=== PATIENT | female | born 1995 | race Caucasian/White ===

== ENCOUNTER 2022-10-15 15:50 | Emergency (ER) | payer OTHER, SELFPAY ==
[2022-10-15 15:54] VITALS: BP 144/94; PULSE 89; RESP 18; TEMP 37.2; O2SAT 99; BMI 35.5
--- NOTE | 2022-10-15 16:05 | US_ITS ---
The [address] [address] Patient Name: ELIZABETH MOLINA MRN: [id number] date: 1995 Sex: F Assigned Patient Location: ER Current Patient Location: ER Accession/Order Number: [id number] Exam Date: 10/15/2022 16:06 Report Date: 10/15/2022 17:30 At the request of: JESSEE BORGES Procedure: US OB transvaginal PROCEDURE: US OB transvaginal, 10/15/2022 4:06 PM EDT CLINICAL INDICATIONS: Vaginal bleeding in for 5 days, encounter for first trimester. 2 para 1 LMP 09/06/2022 Expected gestational age by LMP: 5 weeks 4 days Expected ABDIRIZAK by LMP: 06/13/2023 COMPARISON: None TECHNIQUE: Transvaginal first trimester obstetric sonogram, grayscale and color assessment. FINDINGS: Uterus: There is no sign of intrauterine . Endometrial echo complex is poorly demonstrated estimated at 0.9 cm. A focal uterine abnormality is not suspected. Significant free fluid is not evident. Maternal right ovary: 3.3 x 1.8 x 1.8 cm. Volume 5 mL. A few subcentimeter follicle seen. Normal sonographic morphology. Maternal left ovary: 2.5 x 1.7 x 1.7 cm. Volume 4 mL. Subcentimeter follicle seen. Normal sonographic morphology. US/US OB transvaginal IMPRESSION: 1. uncertain location. There is no sign of intrauterine or extra uterine . Differential considerations include too early to confirm by sonography, complete spontaneous , ectopic . Correlation with serial quantitative beta-hCG and follow-up sonography needed. 2. Normal uterine and maternal ovarian sonographic morphology 3. No significant pelvic mass or free fluid Electronically authenticated by: KYUNG MARTIN Date: 10/15/2022 17:30
--- NOTE | 2022-10-15 16:08 | ED.GENADUL1 ---
Documented by User: ABEL Jauregui 10/15/22 17:45 HPI - General Adult General Chief complaint: OB/Uterine Contractions Stated complaint: BLEEDING, ISSUES, UNDER 20-WEEKS Time Seen by Provider: 10/15/22 15:52 Source: patient Mode of arrival: walk-in History of Present Illness HPI narrative: patient is a 27-year-old female estimated 5weeks 4 days gestation with last menstrual period began 09/06/22. Estimated date of confinement would be 06/13/2023.patient states she had intercourse last night, started noticed some spotting, today she had increased bleeding and pelvic cramping. Patient states she has been using a thin pad/pantiliners and bled through her underwear. She denies having these a thick pad. Patient believes her blood type is O positive. She denies any dysuria or fever or vaginal discharge. Patient appears in no distress, but visibly anxious. Related Data Home Medications Medication Instructions Recorded Confirmed bupropion HCl 100 mg tablet 100 mg PO BID 10/15/22 10/15/22 Allergies Allergy/AdvReac Type Severity Reaction Status Date / Time No Known Drug Allergies Allergy Verified 10/15/22 15:54 Review of Systems ROS Constitutional Denies: fever or chills Ears, nose, mouth, and throat Denies: throat pain or neck pain Cardiovascular Denies: chest pain, palpitations or swelling of feet/ankles Respiratory Denies: shortness of breath or cough Gastrointestinal Reports: abdominal pain (pelvic cramping) Genitourinary Reports: vaginal bleeding; Denies: painful urination Musculoskeletal Denies: back pain, neck pain, extremity pain or extremity swelling Integumentary/Breast Denies: rash Psychiatric Denies: anxiety or mood swings Endocrine Denies: excessive urination Exam Narrative Exam Narrative: Nurses notes and vital signs reviewed and patient is not hypoxic. General: The patient appears well and in no apparent distress. mildly anxious, Patient is resting comfortably on cart. Skin: Warm, dry, no pallor noted. Head: Normocephalic, atraumatic Neck: Supple, trachea mid-line, no tenderness, no lymphadenopathy Eye: Pupils are equal, round and reactive to light, EOMI Ears, Nose, Mouth, and Throat: external exam unremarkable Cardiovascular: Regular Rate and Rhythm Respiratory: Patient is in no distress, no accessory muscle use, lungs are clear to auscultation, no wheezing, rales or rhonchi. Chest Wall: no tenderness Back: non-tender, no CVA tenderness Musculoskeletal: normal ROM, no tenderness, no swelling GI: Normal bowel sounds, no tenderness to palpation, no masses appreciated. No rebound, guarding, or rigidity noted. Neurological: A&O x4 Psychiatric: Cooperative, mildly anxious Constitutional Vital Signs, click to edit/add: Last Vital Signs Temp 99 F 10/15/22 15:54 Pulse 89 10/15/22 15:54 Resp 18 10/15/22 15:54 BP 144/94 H 10/15/22 15:54 Pulse Ox 99 10/15/22 15:54 O2 Del Method Room Air 10/15/22 15:54 Course Vital Signs Vital signs: Vital Signs Temperature 99 F 10/15/22 15:54 Pulse Rate 89 10/15/22 15:54 Respiratory Rate 18 10/15/22 15:54 Blood Pressure 144/94 H 10/15/22 15:54 Pulse Oximetry 99 10/15/22 15:54 Oxygen Delivery Method Room Air 10/15/22 15:54 Temperature 99 F 10/15/22 15:54 Pulse Rate 89 10/15/22 15:54 Respiratory Rate 18 10/15/22 15:54 Blood Pressure 144/94 H 10/15/22 15:54 Pulse Oximetry 99 10/15/22 15:54 Oxygen Delivery Method Room Air 10/15/22 15:54 Medical Decision Making MDM Narrative Medical decision making narrative: 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 we discussed her vaginal bleeding postcoital, we discussed vaginal hemorrhaging and the need to return to the Emergency Room if she gets greater than three pads an hour for three hours straight. We discussed baseline labs drawn today, ultrasound will be performed to confirm intrauterine . Reviewed ultrasound report, discussed laboratory findings, her quantitative hCG is very low. I discussed her case with Dr. Christian, she is agreeable that we repeat the quantitative hCG in two days and patient is to follow-up with Dr. Burger. Bedside questions answered for the patient, prescription given for outpatient lab draw to be done in two days.patient is O positive The patient is to followup with primary care physician in next 2-3 days or to return to the emergency department should any of the signs or symptoms worsen or new symptoms develop. Patient had questions answered. The patient agrees with the following Diagnosis and Treatment plan and the patient will be discharged home. Lab Data Labs: Lab Results 10/15/22 10/15/22 Range/Units 16:15 16:20 WBC 8.9 (4.0-11.0) 10^3/uL RBC 4.74 (4.20-5.40) 10^6/uL Hgb 13.9 (12.0-16.0) g/dL Hct 40.2 (36.0-48.0) % MCV 84.8 (81.0-99.0) fL MCH 29.3 (26.7-34.0) pg MCHC 34.6 (29.9-35.2) g/dL RDW 12.6 (11.0-15.0) % Plt Count 268 (150-450) 10^3/uL MPV 10.0 (9.5-13.5) fL Neut % (Auto) 52.2 (43.0-75.0) % Lymph % (Auto) 36.9 (20.5-60.0) % [place] % (Auto) 8.9 (1.7-12.0) % Eos % (Auto) 1.5 (0.9-7.0) % Baso % (Auto) 0.2 (0.2-2.0) % Neut # (Auto) 4.7 (1.4-6.5) 10^3/uL Lymph # (Auto) 3.3 (1.2-3.8) 10^3/uL [place] # (Auto) 0.8 (0.3-0.8) 10^3/uL Eos # (Auto) 0.1 (0.0-0.7) 10^3/uL Baso # (Auto) 0.0 (0.0-0.1) 10^3/uL Abs Immat Gran (auto) 0.03 (0.00-0.03) 10^3/uL Imm/Tot Granulo (auto) 0.3 (0.0-0.5) % HCG, Quant 72 mIU/mL Urine Color Lt. yellow (YELLOW) Urine Clarity Clear (CLEAR) Urine pH 6.5 (5.0-9.0) Ur Specific [place] 1.010 (1.005-1.025) Urine Protein Negative (NEG/TRACE) mg/dL Urine Glucose (UA) Negative (NEGATIVE) mg/dL Urine Ketones Negative (NEGATIVE) mg/dL Urine Occult Blood Large A (NEGATIVE) Urine Nitrite Negative (NEGATIVE) Urine Bilirubin Negative (NEGATIVE) Urine Urobilinogen 0.2 (0.2-1.0) EU/dL Ur Leukocyte Esterase Negative (NEGATIVE) Urine RBC 2-5 A (0-2) #/HPF Urine WBC None seen (NONE SEEN) #/HPF Ur Squamous Epith Cells Rare (NONE/RARE) #/LPF Urine Crystals None seen (None Seen) #/HPF Urine Bacteria Trace A (NONE SEEN) #/HPF Urine Casts None seen (NONE SEEN) #/LPF Urine Mucus None seen (NONE SEEN) Ur Culture Indicated? No Blood Type O Positive Imaging Data US - abdomen: Radiologist's impression: Procedure: US OB transvaginal PROCEDURE: US OB transvaginal, 10/15/2022 4:06 PM EDT CLINICAL INDICATIONS: Vaginal bleeding in for 5 days, encounter for first trimester. 2 para 1 LMP 09/06/2022 Expected gestational age by LMP: 5 weeks 4 days Expected ABDIRIZAK by LMP: 06/13/2023 COMPARISON: None TECHNIQUE: Transvaginal first trimester obstetric sonogram, grayscale and color assessment. FINDINGS: Uterus: There is no sign of intrauterine . Endometrial echo complex is poorly demonstrated estimated at 0.9 cm. A focal uterine abnormality is not suspected. Significant free fluid is not evident. Maternal right ovary: 3.3 x 1.8 x 1.8 cm. Volume 5 mL. A few subcentimeter follicle seen. Normal sonographic morphology. Maternal left ovary: 2.5 x 1.7 x 1.7 cm. Volume 4 mL. Subcentimeter follicle seen. Normal sonographic morphology. IMPRESSION: 1. uncertain location. There is no sign of intrauterine or extra uterine . Differential considerations include too early to confirm by sonography, complete spontaneous , ectopic . Correlation with serial quantitative beta-hCG and follow-up sonography needed. 2. Normal uterine and maternal ovarian sonographic morphology 3. No significant pelvic mass or free fluid Electronically authenticated by: KYUNG MARTIN Date: 10/15/2022 17:30 Discharge Plan Discharge Chief Complaint: OB/Uterine Contractions Clinical Impression: Threatened miscarriage Patient Disposition: Home, Self-Care Time of Disposition Decision: 17:43 Condition: Good Prescriptions / Home Meds: No Action bupropion HCl 100 mg tablet 100 mg PO BID Referrals: Rogerio Burger DO [Physician] - As soon as possible DANIEL LAMB [Primary Care Provider] - 1 week Discharge Date/Time: 10/15/22 17:56 Documented by User: Gurdeep Delcid MD 10/15/22 19:11 HPI - General Adult General Chief complaint: OB/Uterine Contractions Stated complaint: BLEEDING, ISSUES, UNDER 20-WEEKS Time Seen by Provider: 10/15/22 15:52 Related Data Home Medications Medication Instructions Recorded Confirmed bupropion HCl 100 mg tablet 100 mg PO BID 10/15/22 10/15/22 Allergies Allergy/AdvReac Type Severity Reaction Status Date / Time No Known Drug Allergies Allergy Verified 10/15/22 15:54 Exam Constitutional Vital Signs, click to edit/add: Last Vital Signs Temp 99 F 10/15/22 15:54 Pulse 89 10/15/22 15:54 Resp 18 10/15/22 15:54 BP 144/94 H 10/15/22 15:54 Pulse Ox 99 10/15/22 15:54 O2 Del Method Room Air 10/15/22 15:54 Course Vital Signs Vital signs: Vital Signs Temperature 99 F 10/15/22 15:54 Pulse Rate 89 10/15/22 15:54 Respiratory Rate 18 10/15/22 15:54 Blood Pressure 144/94 H 10/15/22 15:54 Pulse Oximetry 99 10/15/22 15:54 Oxygen Delivery Method Room Air 10/15/22 15:54 Temperature 99 F 10/15/22 15:54 Pulse Rate 89 10/15/22 15:54 Respiratory Rate 18 10/15/22 15:54 Blood Pressure 144/94 H 10/15/22 15:54 Pulse Oximetry 99 10/15/22 15:54 Oxygen Delivery Method Room Air 10/15/22 15:54 Medical Decision Making MDM Narrative Medical decision making narrative: 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 we discussed her vaginal bleeding postcoital, we discussed vaginal hemorrhaging and the need to return to the Emergency Room if she gets greater than three pads an hour for three hours straight. We discussed baseline labs drawn today, ultrasound will be performed to confirm intrauterine . Reviewed ultrasound report, discussed laboratory findings, her quantitative hCG is very low. I discussed her case with Dr. Christian, she is agreeable that we repeat the quantitative hCG in two days and patient is to follow-up with Dr. Burger. Bedside questions answered for the patient, prescription given for outpatient lab draw to be done in two days.patient is O positive The patient is to followup with primary care physician in next 2-3 days or to return to the emergency department should any of the signs or symptoms worsen or new symptoms develop. Patient had questions answered. The patient agrees with the following Diagnosis and Treatment plan and the patient will be discharged home. I, Dr Delcid, have reviewed the above progress note and course of action in the ER; agree with the above. I have gone over history and physical, and discussed disposition and treatment plan with the PA. Lab Data Labs: Lab Results 10/15/22 10/15/22 Range/Units 16:15 16:20 WBC 8.9 (4.0-11.0) 10^3/uL RBC 4.74 (4.20-5.40) 10^6/uL Hgb 13.9 (12.0-16.0) g/dL Hct 40.2 (36.0-48.0) % MCV 84.8 (81.0-99.0) fL MCH 29.3 (26.7-34.0) pg MCHC 34.6 (29.9-35.2) g/dL RDW 12.6 (11.0-15.0) % Plt Count 268 (150-450) 10^3/uL MPV 10.0 (9.5-13.5) fL Neut % (Auto) 52.2 (43.0-75.0) % Lymph % (Auto) 36.9 (20.5-60.0) % [place] % (Auto) 8.9 (1.7-12.0) % Eos % (Auto) 1.5 (0.9-7.0) % Baso % (Auto) 0.2 (0.2-2.0) % Neut # (Auto) 4.7 (1.4-6.5) 10^3/uL Lymph # (Auto) 3.3 (1.2-3.8) 10^3/uL [place] # (Auto) 0.8 (0.3-0.8) 10^3/uL Eos # (Auto) 0.1 (0.0-0.7) 10^3/uL Baso # (Auto) 0.0 (0.0-0.1) 10^3/uL Abs Immat Gran (auto) 0.03 (0.00-0.03) 10^3/uL Imm/Tot Granulo (auto) 0.3 (0.0-0.5) % HCG, Quant 72 mIU/mL Urine Color Lt. yellow (YELLOW) Urine Clarity Clear (CLEAR) Urine pH 6.5 (5.0-9.0) Ur Specific [place] 1.010 (1.005-1.025) Urine Protein Negative (NEG/TRACE) mg/dL Urine Glucose (UA) Negative (NEGATIVE) mg/dL Urine Ketones Negative (NEGATIVE) mg/dL Urine Occult Blood Large A (NEGATIVE) Urine Nitrite Negative (NEGATIVE) Urine Bilirubin Negative (NEGATIVE) Urine Urobilinogen 0.2 (0.2-1.0) EU/dL Ur Leukocyte Esterase Negative (NEGATIVE) Urine RBC 2-5 A (0-2) #/HPF Urine WBC None seen (NONE SEEN) #/HPF Ur Squamous Epith Cells Rare (NONE/RARE) #/LPF Urine Crystals None seen (None Seen) #/HPF Urine Bacteria Trace A (NONE SEEN) #/HPF Urine Casts None seen (NONE SEEN) #/LPF Urine Mucus None seen (NONE SEEN) Ur Culture Indicated? No Blood Type O Positive Discharge Plan Discharge Chief Complaint: OB/Uterine Contractions Clinical Impression: Threatened miscarriage Patient Disposition: Home, Self-Care Time of Disposition Decision: 17:43 Condition: Good Prescriptions / Home Meds: No Action bupropion HCl 100 mg tablet 100 mg PO BID Referrals: Rogerio Burger DO [Physician] - As soon as possible DANIEL LAMB [Primary Care Provider] - 1 week Discharge Date/Time: 10/15/22 17:56
[2022-10-15 16:30] LABS: Basophils Percent Auto 0.2 % (0.2-2.0); Eosinophils Absolute Auto 0.1 10^3/uL (0.0-0.7); Eosinophils Percent Auto 1.5 % (0.9-7.0); Hematocrit 40.2 % (36.0-48.0); Hemoglobin 13.9 g/dL (12.0-16.0); Immature Granulocytes Abs Auto 0.03 10^3/uL (0.00-0.03); Immature Granulocytes Pct Auto 0.3 % (0.0-0.5); Lymphocytes Absolute Auto 3.3 10^3/uL (1.2-3.8); Lymphocytes Percent Auto 36.9 % (20.5-60.0); Mean Corpuscular HGB Conc 34.6 g/dL (29.9-35.2); Mean Corpuscular Hemoglobin 29.3 pg (26.7-34.0); Mean Corpuscular Volume 84.8 fL (81.0-99.0); Monocytes Absolute Auto 0.8 10^3/uL (0.3-0.8); Monocytes Percent Auto 8.9 % (1.7-12.0); Neutrophils Absolute Auto 4.7 10^3/uL (1.4-6.5); Neutrophils Percent Auto 52.2 % (43.0-75.0); Platelet Count 268 10^3/uL (150-450); Red Blood Count 4.74 10^6/uL (4.20-5.40); Red Cell Distribution Width 12.6 % (11.0-15.0); White Blood Count 8.9 10^3/uL (4.0-11.0)
[2022-10-15 16:31] LABS: Bilirubin Urine NEGATIVE (NEGATIVE); Blood Urine LARGE (NEGATIVE); Clarity Urine CLEAR (CLEAR); Color Urine LT. YELLOW (YELLOW); Glucose Urine UA NEGATIVE (NEGATIVE); Ketones Urine NEGATIVE (NEGATIVE); Leukocyte Esterase Urine NEGATIVE (NEGATIVE); Nitrite Urine NEGATIVE (NEGATIVE); Protein Urine NEGATIVE (NEG/TRACE); Urobilinogen Urine 0.2 EU/dL (0.2-1.0); pH Urine 6.5 (5.0-9.0)
[2022-10-15 16:33] LABS: Urine Microscopic Indicated YES
[2022-10-15 16:42] LABS: Bacteria Urine TRACE #/HPF (NONE SEEN); Cast Seen? NONE SEEN #/LPF (NONE SEEN); Crystals Seen? None Seen #/HPF (None Seen); Mucus Urine NONE SEEN (NONE SEEN); Squamous Epithelial Cell Urine RARE #/LPF (NONE/RARE); WBC Urine NONE SEEN #/HPF (NONE SEEN)
[2022-10-15 16:43] LABS: Urine Culture Indicated NO
[2022-10-15 16:50] LABS: HCG Quantitative 72 mIU/mL
== END 2022-10-15 17:56 | disposition home or self-care (01) ==
PROVIDERS: Personal Emergency Response Attendant; Emergency Provider Emergency Medicine; PCP Family Medicine
DX: O20.0 Threatened abortion (principal); Z3A.01 Less than 8 weeks gestation of pregnancy
CPT/HCPCS: 36415; 76817; 81001; 81003; 84702; 85025; 86900; 86901; 99285

== ENCOUNTER 2022-10-17 14:25 | Outpatient (OUT) | payer OTHER, SELFPAY ==
[2022-10-17 15:04] LABS: HCG Quantitative 87 mIU/mL
== END 2022-10-17 14:26 | disposition home or self-care (01) ==
LOC: LAB 14:28
PROVIDERS: PCP Family Medicine; Visit Provider Obstetrics & Gynecology
DX: O20.0 Threatened abortion (principal)
CPT/HCPCS: 36415; 84702

== ENCOUNTER 2022-10-26 11:10 | Outpatient (OUT) | payer OTHER, SELFPAY ==
[2022-10-26 11:39] LABS: HCG Quantitative 39 mIU/mL
== END 2022-10-26 11:11 | disposition home or self-care (01) ==
PROVIDERS: PCP Family Medicine; Visit Provider Obstetrics & Gynecology
DX: O20.0 Threatened abortion (principal)
CPT/HCPCS: 36415; 84702

== ENCOUNTER 2023-09-29 13:29 | Outpatient (OUT) | payer OTHER, SELFPAY ==
--- NOTE | 2023-09-29 13:34 | US_ITS ---
[address] [address] Patient Name: ELIZABETH MOLINA MRN: [id number] date: 1995 Sex: F Assigned Patient Location: [facility] Current Patient Location: [facility] Accession/Order Number: [id number] Exam Date: 09/29/2023 13:35 Report Date: 09/29/2023 15:23 At the request of: ANAI AMADO Procedure: US OB transvaginal EXAMINATION: US OB transvaginal HISTORY: MISSED MENSES COMPARISON: No relevant comparison available. FINDINGS: Knowles intrauterine gestation Gestational sac: 3.71 cm, 8 weeks 6 days CRL: 2.19 cm, 8 weeks 6 days Yolk sac: 4.2 mm Heart rate: 176 beats minute Cervix: Closed, 4.2 cm The uterus is normal, anteverted, anteflexed The ovaries are normal Clinical age: 9 weeks 1 day Clinical ABDIRIZAK: 05/02/2024 Ultrasound age: 8 weeks 6 days Ultrasound ABDIRIZAK: 05/04/2024 US/US OB transvaginal IMPRESSION: Viable knowles intrauterine gestation measuring 8 weeks 6 days Electronically authenticated by: ZURI PHOENIX Date: 09/29/2023 15:23
== END 2023-09-29 13:30 | disposition home or self-care (01) ==
LOC: NOMS 13:29
PROVIDERS: PCP Family Medicine; Visit Provider Obstetrics & Gynecology
DX: Z34.91 Encounter for supervision of normal pregnancy, unspecified, first trimester (principal); Z3A.08 8 weeks gestation of pregnancy
CPT/HCPCS: 76817

== ENCOUNTER 2023-10-06 15:23 | Outpatient (OUT) | payer OTHER, SELFPAY ==
[2023-10-06 15:52] LABS: Basophils Absolute Auto 0.1 10^3/uL (0.0-0.1); Basophils Percent Auto 0.5 % (0.2-2.0); Eosinophils Absolute Auto 0.2 10^3/uL (0.0-0.7); Eosinophils Percent Auto 1.5 % (0.9-7.0); Hematocrit 40.3 % (36.0-48.0); Hemoglobin 13.7 g/dL (12.0-16.0); Immature Granulocytes Abs Auto 0.04 10^3/uL (0.00-0.03); Immature Granulocytes Pct Auto 0.4 % (0.0-0.5); Lymphocytes Absolute Auto 3.6 10^3/uL (1.2-3.8); Lymphocytes Percent Auto 32.7 % (20.5-60.0); Mean Corpuscular Hemoglobin 29.3 pg (26.7-34.0); Mean Corpuscular Volume 86.1 fL (81.0-99.0); Mean Platelet Volume 10.3 fL (9.5-13.5); Monocytes Absolute Auto 0.6 10^3/uL (0.3-0.8); Monocytes Percent Auto 5.5 % (1.7-12.0); Neutrophils Absolute Auto 6.5 10^3/uL (1.4-6.5); Neutrophils Percent Auto 59.4 % (43.0-75.0); Platelet Count 248 10^3/uL (150-450); Red Blood Count 4.68 10^6/uL (4.20-5.40); Red Cell Distribution Width 12.5 % (11.0-15.0)
[2023-10-06 16:01] LABS: Estimated Average Glucose 94 mg/dL; Glycohemoglobin A1C 4.9 % (4.5-6.2)
[2023-10-08 06:08] LABS: HBsAg Screen Negative (Negative); HCV Ab Non Reactive (Non Reactive); HIV Ab/p24 Ag Screen Non Reactive (Non Reactive); Rubella Antibodies, IgG 3.28 index (Immune >0.99)
[2023-10-08 10:08] LABS: Rapid Plasma Reagin, Quant Non Reactive titer (NonRea<1:1)
== END 2023-10-06 15:24 | disposition home or self-care (01) ==
LOC: LAB 15:24
PROVIDERS: PCP Family Medicine; Visit Provider Obstetrics & Gynecology
DX: N92.6 Irregular menstruation, unspecified (principal); Z36.0 Encounter for antenatal screening for chromosomal anomalies
CPT/HCPCS: 36415; 83036; 85025; 86592; 86762; 86803; 86850; 86900; 86901; 87086; 87340; 87389

== ENCOUNTER 2023-11-22 19:42 | Outpatient (REF) | payer OTHER, SELFPAY ==
--- OUTSIDE RECORDS SUMMARY | 2023-11-22 19:48 | XMS_ITS | CCD ---
Author Organization [facility] Care Team Providers Care Director Specialty Name Role Phone DR ANAI AMADO Admitting Unavailable ANEUDY, DR OSPINA Attending Unavailable ZAINAB, DR SANCHEZ Primary Care Unavailable ANEUDY, DR OSPINA Consulting Unavailable HEMMER, DR MARLENE Bosch Admitting Unavailable HEMMER, DR MARLENE Bosch Attending Unavailable ZAINAB, DR SANCHEZ Primary Care Unavailable West, DR De Guzman Consulting Unavailable HEMMER, DR MARLENE Bosch Consulting Unavailable ZAINAB, DR SANCHEZ Admitting Unavailable ZAINAB, DR SANCHEZ Attending Unavailable ZAINAB, DR SANCHEZ Primary Care Unavailable ZAINAB, DR SANCHEZ Consulting Unavailable ZAINAB, DR SANCHEZ Primary Care Unavailable DYLON MCKEON Admitting Unavailable DYLON MCKEON Attending Unavailable ABEL MARTINEZ Consulting Unavailable DYLON MCKEON Consulting Unavailable MD Dee Buchanan Attending Provider Dee Buchanan Attending Unavailable Dee Buchanan Admitting Unavailable Dee Buchanan Unavailable MARLENE PLASENCIA Attending Unavailable HEMMINISTERIO, MARLENE Bosch Attending Unavailable HEMMINISTERIO, MARLENE Bosch Attending Unavailable HEMMARLENE MANDEL Attending Unavailable SANGEETHA GRAY Attending Unavailable GEE MARTINEZ Attending Unavailable ANAI AMADO Attending Unavailable ANAI AMADO Attending Unavailable Allergies Allergy Classification Reported Allergen(s) Allergy Type Date of Onset Reaction(s) Facility (1 source) Cephalexin Drug Allergy [facility] Repository Medications Current Medications Medication Drug Class(es) Dates Sig (Normalized) Sig (Original) buPROPion hydrochloride 100 mg oral tablet (1 source) Aminoketone take 1 tablet by claudia th every twelve hours buPROPion HCl 100 MG 1 tablet Orally Twice a day Active Completed/Discontinued Medications Medication Drug Class(es) Dates Sig (Normalized) Sig (Original) triamcinolone acetonide 40 mg/ml injectable suspension (1 source) Corticosteroid Start: 05-11-2022 Kenalog-40 Apr, 20 mg Problems Active Problems Problem Classification Problem Date Documented Date Episodic/Chronic Immunizations and screening for infectious disease (1 source) Encounter for screening for human papillomavirus (HPV); Translations: [ENC SCREENING HUMAN PAPILLOMAVIRUS] Onset: 08-13-2021 Episodic Other connective tissue disease (1 source) Ganglion, left wrist Episodic Other non-traumatic joint disorders (4 sources) Pain in right knee; Translations: [PAIN IN RIGHT KNEE] Onset: 07-17-2021 Episodic Other non-traumatic joint disorders (1 source) Pain in left knee; Translations: [PAIN IN LEFT KNEE] Onset: 07-22-2021 Episodic Other non-traumatic joint disorders (1 source) Pain in left wrist Episodic Other screening for suspected conditions (not mental disorders or infectious disease) (4 sources) Encounter for screening for malignant neoplasm of cervix; Translations: [ENC SCREENING MALIG NEOPLASM CERV] Onset: 08-10-2021 Episodic Unclassified (1 source) Pain in left wrist; Translations: [Pain in left wrist] Onset: 05-11-2022 Viral infection (1 source) COVID-19; Translations: [COVID-19] Onset: 12-17-2020 Past or Other Problems Problem Classification Problem Date Documented Da te Episodic/Chronic Nausea and vomiting (4 sources) Nausea with vomiting, unspecified; Translations: [NAUSEA WITH VOMITING UNSPECIFIED] Onset: 12-08-2020 Episodic Other lower respiratory disease (3 sources) Cough; Translations: [COUGH] Onset: 12-03-2020 Episodic Results Test Name Value Interpretation Reference Range Facility XR wrist LT min 3V*on 2022 XR wrist LT min 3V* [facility] [place] [address] XRay Report Signed Patient: Nazia Harper MR#: [id number] 67 : 1995 Acct:[id number] Age/Sex: 26 / F ADM Date: 05/11/22 Loc: [facility] Room: Type: [facility] Attending Dr: Dee Buchanan MD Copies to: Dee Buchanan MD Ordering Provider: Dee Buchanan MD Date of Service: 05/11/22 XR/XR wrist LT min 3V*: PAIN LEFT WRIST - 4 views CLINICAL HISTORY: Ganglion cyst posterior aspect at the level of the carpals. COMPARISON: None FINDINGS: No focal soft tissue abnormality is noted. No acute bony process is seen. Carpal bones appear unremarkable. XR/XR wrist LT min 3V* IMPRESSION: NO ACUTE BONY PROCESS. Impression dictated by: Tan Travis Jr., D.OJuanis05/11/2022 12:18 PM Dictation Location: [place] [address] Transcribed By: [facility] 05/11/22 1218 Dictated By: Tan Travis Jr, DO 05/11/22 1217 Signed By: 05/11/22 1218 Normal [facility] XR wrist LT min 3V* [facility] [employer] Other XR wrist LT min 3V* [facility] [place] [employer] Other XR wrist LT min 3V* [address] [place] [address] [employer] Other XR wrist LT min 3V* [place] [address] [employer] Other XR wrist LT min 3V* XRay Report [employer] Other XR wrist LT min 3V* Signed [employer] Other XR wrist LT min 3V* Patient: Nazia Harper MR#: [id number] [employer] Other XR wrist LT min 3V* 67 [employer] Other XR wrist LT min 3V* : 1995 Acct:[id number] [employer] Other XR wrist LT min 3V* Age/Sex: 26 / F ADM Date: 05/11/22 [facility] Other XR wrist LT min 3V* Loc: [facility] Room: Type: [facility] Other XR wrist LT min 3V* Attending Dr: Dee Buchanan MD [employer] Other XR wrist LT min 3V* Copies to: Dee Buchanan MD [employer] Other XR wrist LT min 3V* Ordering Provider: Dee Buchanan MD [facility] Other XR wrist LT min 3V* Date of Service: 05/11/22 [facility] Other XR wrist LT min 3V* XR/XR wrist LT min 3V*: PAIN [employer] Other XR wrist LT min 3V* LEFT WRIST - 4 views [employer] Other XR wrist LT min 3V* CLINICAL HISTORY: Ganglion cyst posterior aspect at the level of the carpals. [employer] Other XR wrist LT min 3V* COMPARISON: None [facility] Other XR wrist LT min 3V* FINDINGS: [facility] Other XR wrist LT min 3V* No focal soft tissue abnormality is noted. No acute bony process is seen. Carpal bones appear [employer] Other XR wrist LT min 3V* unremarkable. [employer] Other XR wrist LT min 3V* XR/XR wrist LT min 3V* [facility] Other XR wrist LT min 3V* IMPRESSION: [facility] Other XR wrist LT min 3V* NO ACUTE BONY PROCESS. [employer] Other XR wrist LT min 3V* Impression dictated by: Tan Travis Jr., DJuanisOJuanis05/11/2022 12:18 PM [employer] Other XR wrist LT min 3V* Dictation Location: [place] [address] [employer] Other XR wrist LT min 3V* Transcribed By: JOSE ALEJANDRO 05/11/22 1218 [employer] Other XR wrist LT min 3V* Dictated By: Tan Travis Jr, DO 05/11/22 1217 [employer] Other XR wrist LT min 3V* Signed By: [employer] Other XR wrist LT min 3V* 05/11/22 1215 [employer] Other PAP ACOG PANEL 2: 21 to 29on 08-15-2021 . . Normal [facility] Comment on above: Result Comment: Perf ormed at: BA Performed By: #### [id number] #### [facility] [address] [place] [address] Dr. Alek Fu Age Gdln ACOG Testing [facility] Comment on above: Performed By: #### [id number] #### [facility] [address] [place] [address] Dr. Alek Fu DIAGNOSIS: Comment [facility] Comment on above: Result Comment: NEGA TIVE FOR INTRAEPITHELIAL LESION OR MALIGNANCY. Performed at: BA Performed By: #### [id number] #### [facility] [address] [place] [address] Dr. Alek Fu Methodology: Comment [facility] Comment on above: Result Comment: This liquid based ThinPrep(R) pap test was screened with the use of an image guided system. Performed at: WB Performed By: #### [id number] #### [facility] [address] [place] [address] Dr. Alek Fu Note: Comment [facility] Comment on above: Result Comment: The Pap smear is a screening test designed to aid in the detection of premalignant and malignant conditions of the uterine cervix. It is not a diagnostic procedure and should not be used as the sole means of detecting cervical cancer. Both false-positive and false-negative reports do occur. . Performed at: WB Performed By: #### [id number] #### [facility] [address] [place] [address] Dr. Alek Fu Performed by: Comment [facility] Comment on above: Result Comment: Elen Carrillo, Wheel And Pinion Inspector (ASCP) Performed at: BA Performed By: #### [id number] #### [facility] [address] [place] [address] Dr. Alek Fu Reflex Criteria: Comment Normal [facility] Comment on above: Result Comment: The HPV DNA reflex criteria were not met with this specimen result therefore, no HPV testing was performed. . Performed at: BA Performed By: #### [id number] #### [facility] [address] [place] [address] Dr. Alek Fu Specimen adequacy: Comment Normal [facility] Comment on above: Result Comment: Sati sfactory for evaluation. Endocervical and/or squamous metaplastic cells (endocervical component) are present. Performed at: BA Performed By: #### [id number] #### [facility] [address] [place] [address] Dr. Alek Fu XR KNEE SABRINA 4V or >on 2021 XR KNEE SABRINA 4V or > EXAMINATION: XR KNEE SABRINA 4V or > HISTORY: Knee pain COMPARISON: 06/09/2011 FINDINGS: RIGHT FINDINGS: BONES: Normal. No significant arthropathy or acute abnormality. SOFT TISSUES: Negative. No visible soft tissue swelling. OTHER: Negative. LEFT FINDINGS: BONES: Normal. No significant arthropathy or acute abnormality. SOFT TISSUES: Negative. No visible soft tissue swelling. OTHER: Negative. IMPRESSION: RIGHT CONCLUSION: No acute abnormality LEFT CONCLUSION: No acute abnormality Electronically authenticated by: ZURI PHOENIX Date: 2021-07-17 17:09 Normal [facility] CBC AUTO DIFFon 12-08-2020 BASO # 0.0 103/ul Normal 0.0-0.1 [facility] Comment on above: Performed By: #### C BC #### [facility] [address] [place] [address] Dr. Alek uF Basophils/100 WBC (Bld) 0.2 % Normal 0.2-2.0 [facility] Comment on above: Performed By: #### C BC #### [facility] [address] [place] [address] Dr. Alek Fu EO # 0.0 103/ul Normal 0.0-0.7 [facility] Comment on above: Performed By: #### C BC #### [facility] [address] [place] [address] [address] Alek Fu Eosinophils/100 WBC (Bld) 0.6 % Critically low 0.9-7.0 [facility] Comment on above: Performed By: #### C BC #### [facility] [address] [place] [address] Dr. Alek Fu Erythrocyte distribution width (RBC) [Ratio] 12.4 % Normal 11.0-15.0 [facility] Comment on above: Performed By: #### C BC #### [facility] [address] [place] [address] Dr. Alek Fu Hematocrit (Bld) [Volume fraction] 44.3 % Normal 36.0-48.0 [facility] Comment on above: Performed By: #### C BC #### [facility] [address] [place] [address] Dr. Alek Fu Hemoglobin (Bld) [Mass/Vol] 15.4 g/dL Normal 12.0-16.0 [facility] Comment on above: Performed By: #### C BC #### [facility] [address] [place] [address] Dr. Alek Fu IG # 0.04 10e3/ul Critically high 0.00-0.03 [facility] Comment on above: Performed By: #### C BC #### [facility] [address] [place] [address] Dr. Alek Fu IG % 0.6 % Critically high 0.0-0.5 [facility] Comment on above: Performed By: #### C BC #### [facility] [address] [place] [address] Dr. Alek Fu LYMPH # 3.2 103/ul Normal 1.2-3.8 [facility] Comment on above: Performed By: #### C BC #### [facility] [address] [place] [address] Dr. Alek Fu Lymphocytes/100 WBC (Bld) 50.2 % Normal 20.5-60.0 [facility] Comment on above: Performed By: #### C BC #### [facility] [address] [place] [address] Dr. Alek Fu MANUAL DIFF REQ NO Normal [facility] Comment on above: Performed By: #### C BC #### [facility] [address] [place] [address] Dr. Alek Fu MCH (RBC) [Entitic mass] 28.7 pg Normal 26.7-34.0 [facility] Comment on above: Performed By: #### C BC #### [facility] [address] [place] [address] Dr. Alek Fu MCHC (RBC) [Mass/Vol] 34.8 g/dL Normal 29.9-35.2 [facility] Comment on above: Performed By: #### C BC #### [facility] [address] [place] [address] Dr. Alek Fu MCV (RBC) [Entitic vol] 82.5 fL Normal 81.0-99.0 [facility] Comment on above: Performed By: #### C BC #### [facility] [address] [place] [address] Dr. Alek Fu MONO # 0.6 103/ul Normal 0.3-0.8 [facility] Comment on above: Performed By: #### C BC #### [facility] [address] [place] [address] Dr. Alek Fu Monocytes/100 WBC (Bld) 10.0 % Normal 1.7-12.0 [facility] Comment on above: Performed By: #### C BC #### [facility] [address] [place] [address] Dr. Alek Fu NEUT # 2.4 103/ul Normal 1.4-6.5 [facility] Comment on above: Performed By: #### C BC #### [facility] [address] [place] [address] Dr. Alek Fu Neutrophils/100 WBC (Bld) 38.4 % Critically low 43.0-75.0 [facility] Comment on above: Performed By: #### C BC #### [facility] [address] [place] [address] Dr. Alek Fu Platelet mean volume (Bld) [Entitic vol] 9.9 fL Normal 9.5-13.5 [facility] Comment on above: Performed By: #### C BC #### [facility] [address] [place] [address] Dr. Alek Fu PLT 206 103/ul Normal 150-450 [facility] Comment on above: Performed By: #### C BC #### [facility] [address] [place] [address] Dr. Alek Fu RBC 5.37 106/ul Normal 4.20-5.40 [facility] Comment on above: Performed By: #### C BC #### [facility] [address] [place] [address] Dr. Alek Fu WBC 6.3 103/ul Normal 4.0-11.0 [facility] Comment on above: Performed By: #### C BC #### [facility] [address] [place] [address] Dr. Alek Fu ER URINE PROFILEon 1 Bilirubin Ql (U) Negative Normal NEGATIVE [facility] Comment on above: Performed By: #### E RUR #### [facility] [address] [place] [address] Dr. Alek Fu Clarity (U) CLEAR Normal CLEAR [facility] Comment on above: Performed By: #### E RUR #### [facility] [address] [place] [address] Dr. Alek Fu Color (U) YELLOW Normal YELLOW [facility] Comment on above: Performed By: #### E RUR #### [facility] [address] [place] [address] Dr. Alek WOOD A micrscopic examination will be performed if indicated. Normal [facility] Comment on above: Performed By: #### E RUR #### [facility] [address] [place] [address] Dr. Alek Fu Glucose Ql (U) Negative Normal NEGATIVE [facility] Comment on above: Performed By: #### E RUR #### [facility] [address] [place] [address] Dr. Alek Fu Hemoglobin Ql (U) TRACE-INTACT Abnormal NEGATIVE [facility] Comment on above: Performed By: #### E RUR #### [facility] [address] [place] [address] Dr. Alek Fu Ketones Ql (U) TRACE Abnormal NEGATIVE [facility] Comment on above: Performed By: #### E RUR #### [facility] [address] [place] [address] Dr. Alek Fu LEUKOCYTES Negative Normal NEGATIVE [facility] Comment on above: Performed By: #### E RUR #### [facility] [address] [place] [address] Dr. Alek Fu Nitrite Ql (U) Negative Normal NEGATIVE [facility] Comment on above: Performed By: #### E RUR #### [facility] [address] [place] [address] Dr. Alek Fu pH (U) 6.0 [pH] Normal 5-9 [facility] Comment on above: Performed By: #### E RUR #### [facility] [address] [place] [address] Dr. Alek Fu SPEC GRAVITY 1.015 Normal 1.005-<=1.025 [facility] Comment on above: Performed By: #### E RUR #### [facility] [address] [place] [address] Dr. Alek Fu UA PROTEIN Negative Normal NEGATIVE/ TRACE [facility] Comment on above: Performed By: #### E RUR #### [facility] [address] [place] [address] Dr. Alek Fu UR MICRO IND NOT INDICATED Normal [facility] Comment on above: Performed By: #### E RUR #### [facility] [address] [place] [address] Dr. Alek Fu Urobilinogen Qn (U) 0.2 {Roya'U}/dL Normal 0.2 - 1.0 [facility] Comment on above: Performed By: #### E RUR #### [facility] [address] [place] [address] [address] Alek Fu URon 12-08-2020 , QUAL Negative Normal NEGATIVE [facility] Comment on above: Performed By: #### P REGU #### [facility] [address] [place] [address] Dr. Alek Fu PROF CHEM 8 (BAS METB)on Anion gap [Moles/Vol] 13.0 mmol/L Normal [facility] Comment on above: Performed By: #### B MP #### [facility] [address] [place] [address] Dr. Alek Fu Calcium [Mass/Vol] 9.0 mg/dL Normal 8.4-10.2 [facility] Comment on above: Performed By: #### B MP #### [facility] [address] [place] [address] Dr. Alek Fu Chloride [Moles/Vol] 103 mmol/L Normal 98-107 [facility] Comment on above: Performed By: #### B MP #### [facility] [address] [place] [address] Dr. Alek Fu CO2 [Moles/Vol] 25.0 mmol/L Normal 22.0-30.0 [facility] Comment on above: Performed By: #### B MP #### [facility] [address] [place] [address] Dr. Alek Fu Creatinine [Mass/Vol] 0.96 mg/dL Normal 0.52-1.04 [facility] Comment on above: Performed By: #### B MP #### [facility] [address] [place] [address] Dr. Alek Fu EGFR-AF UZBEK >60 Normal >=60 [facility] Comment on above: Performed By: #### B MP #### [facility] [address] [place] [address] Dr. Alek Fu EGFR-NON AF UZBEK >60 Normal >=60 [facility] Comment on above: Performed By: #### B MP #### [facility] [address] [place] [address] [address] Alek Fu Glucose [Mass/Vol] 99 mg/dL Normal 74-106 [facility] Comment on above: Performed By: #### B MP #### [facility] [address] [place] [address] [address] Alek Fu Potassium [Moles/Vol] 3.0 mmol/L Critically low 3.4-5.0 [facility] Comment on above: Performed By: #### B MP #### [facility] [address] [place] [address] [address] Alek Fu Sodium [Moles/Vol] 138 mmol/L Normal 137-145 [facility] Comment on above: Performed By: #### B MP #### [facility] [address] [place] [address] [address] Alek Fu Urea nitrogen [Mass/Vol] 11.0 mg/dL Normal 7.0-17.0 [facility] Comment on above: Performed By: #### B MP #### [facility] [address] [place] [address] [address] Alek Fu Urea nitrogen/Creatini ne [Mass ratio] 11.5 mg/mg Normal [facility] Comment on above: Performed By: #### B MP #### [facility] [address] [place] [address] [address] Alek Fu [facility]-19 SARS-CoV-2 (COVID-19) RNA SANTANA+probe Ql (Unsp spec) Detected Critically abnormal NOT DETECTED [facility] Comment on above: Result Comment: This test is not yet approved or cleared by the [place] FDA. When there are no FDA-approved or cleared tests available, and other criteria are met, FDA can make tests available under an emergency access mechanism called an Emergency Use Authorization (EUA). The EUA for this test is supported by the Lens Inserter of Health and Human Service's (HHS's) declaration that circumstances exist to justify the emergency use of in vitro diagnostics for the detection and/or diagnosis of the virus that causes COVID-19. This EUA will remain in effect (meaning this test can be used) for the duration of the COVID-19 declaration justifying emergency of IVDs, unless it is terminated or revoked by FDA (after which the test may no longer be used). Performed By: #### C VDTB #### [facility] [address] [place] [address] Dr. Alek Fu Encounters Encounter Date Encounter Type Care Provider Facility Start: 11-22-2023 End: 11-22-2023 ambulatory ANAI AMADO Not Available Start: 10-24-2023 End: 10-24-2023 ambulatory ANAI AMADO Not Available Start: 10-11-2023 End: 10-11-2023 ambulatory GEE MARTINEZ Not Available Start: 09-29-2023 End: 09-29-2023 ambulatory MARLENE PLASENCIA Not Available Start: 09-08-2023 End: 09-08-2023 ambulatory SANGEETHA GRAY Not Available Start: 07-26-2023 End: 07-26-2023 ambulatory MARLENE Bosch HEMMER Not Available Start: 06-16-2023 End: 06-16-2023 ambulatory MARLENE Bosch HEMMER Not Available Start: 03-23-2023 End: 03-23-2023 ambulatory MARLENE Bosch HEMMER Not Available Start: 02-15-2023 End: 02-15-2023 ambulatory MARLENE Bosch HEMMER Not Available Start: 05-11-2022 Office outpatient ne w 45 minutes [facility] Start: 05-11-2022 End: 05-11-2022 ambulatory Dee Buchanan Facility:[facility] Start: 05-11-2022 End: 05-11-2022 ambulatory MD Dee Buchanan Work Phone: [facility] Work Phone: Start: 05-11-2022 End: 05-11-2022 Patient encounter procedure MD Dee Buchanan Work Phone: [facility] Start: 08-10-2021 End: 08-10-[address] ANAI AMADO Facility: Start: 07-17-2021 End: 07-18-[address] MARLENE PLASENCIA Facility:[facility] Start: 12-08-2020 End: 12-08-[address] DANIEL LAMB Facility:[facility] Start: 12-03-2020 End: 12-03-[address] DANIEL LAMB Facility:[facility] Procedures Date Procedure Procedure Detail Performing Clinician Start: 05-11-2022 Plain X-ray of left wrist MD Dee Buchanan Work Phone: Payers Date Payer Category Payer Private Health Insurance [id number] 2022 Private Health Insurance [id number] 2022 Self-pay 2022 Unknown [id number] 1995 Unknown [id number] 2.16.84 [id number] 1995 Unknown [id number] 2.16.84 0.1.503046.3.579.2.593 1995 Unknown [id number] 2.16.84 0.1.757811.3.579.2.593 1995 Unknown [id number] 2.16.84 0.1.034625.3.579.2.593 1995 Unknown [id number] 2.16.84 0.1.441320.3.579.2.1259 1995 Unknown [id number] 2.16.84 0.1.162343.3.579.2.1259 1995 Unknown [id number] 2.16.84 0.1.165666.3.579.2.1259 1995 Unknown [id number] 2.16.84 0.1.297711.3.579.2.1259 1995 Unknown [id number] 2.16.84 0.1.653654.3.579.2.1259 1995 Unknown [id number] 2.16.84 0.1.996882.3.579.2.1259 1995 Unknown [id number] 2.16.84 0.1.037018.3.579.2.1259 1995 Unknown [id number] 2.16.840 .1.226094.3.579.2.1259 1995 Unknown [id number] 2.16.840 .1.948976.3.579.2.1259 1959 Unknown [id number] 1959 Unknown [id number] 1959 Unknown [id number] Unknown [id number] 2.16.8 40.1.928122.3.579.2.531 Social History Date Type Detail Facility Tobacco smoking status NHIS Unknown if ever smoked [facility] Work Phone: Start: 1995 Sex Assigned At Female F [facility] Sex Assigned At Sex Assigned At Bir th [employer] Other Evaluation note 05-11-2022 Note Date & Type Note Facility 05-11-2022 Evaluation note Encounter Date Diagnosis Assessment Notes Apr, Left wrist pain (ICD-10 - M25.532) Apr, Ganglion cyst of dorsum of left wrist (ICD-10 - M67.432) Radiographs reviewed with patient today in detail. Discussed with patient this appears to be a ganglion cyst. Discussed with patient treatment options including compression wrapping, aspiration with cortisone injection, and surgical removal. Patient states she would like to proceed with aspiration with cortisone injection. Patient was prepped and left wrist was injected with lidocaine under sterile conditions. Patient was then tested for sensation. Once patient was sufficiently numb we then preformed a cyst aspiration then a cortisone injection all under sterile conditions. May allow hands to get wet in clean running water, no barbosa/ramirez/str eams, until the hands are well healed to avoid infection. Patient was in understanding. Dressing applied to left wrist. . Patient placed in wrist brace. Instructed patient to wear brace for activities. [facility] Other Evaluation note Note Date & Type Note Facility Evaluation note No assessment information availa ble [facility] Work Phone: History general Narrative - Reported Note Date & Type Note Facility History general Narrative - Reported Type Medical History learning disability Surgical History tymponostomy x7 [facility] Other Summary Purpose Family History No Family History Records FoundNo Family History Records FoundNo Family History Records Found Advance Directives No Advanced Directives Records FoundNo Advanced Directives Records FoundNo Advanced Directives Records Found Additional Source Comments INFORMATION SOURCE (unrecogn ized section and content) DATE CREATED AUTHOR 09/12/2021 [facility] DATE CREATED AUTHOR AUTHOR'S ORGANIZ ATION 05/21/2022 [facility] DATE CREATED AUTHOR AUTHOR'S ORGANIZ ATION 11/22/2023 [facility] [employer] Care Teams (unrecognized sec tion and content) Team Status: Inactive Member Role Status Dates Dee Buchanan MD Attending Provider Active Goals (unrecognized section and content) Goals may be documented in a n alternate sectionNo Information REASON FOR VISIT (unrecogniz ed section and content) CONSULT MARLENE PLASENCIA LT GUILLERMO T GANG CYST NX FOR RECORDS PERTAINING TO PATIENTS WHO ARE OR HAVE BEEN ENROLLED IN A CHEMICAL DEPENDENCY/SUBSTANCEABUSE PROGRAM, SOME INFORMATION MAY BE OMITTED. This clinical summary was aggregated from multiple sources. Caution should be exercised in using it in the provision of clinical care. This summary normalizes information from multiple sources, and as a consequence, information in this document may materially change the coding, format and clinical context of patient data. In addition, data may be omitted in some cases. CLINICAL DECISIONS SHOULD BE BASED ON THE PRIMARY CLINICAL RECORDS. [facility]. provides no warranty or guarantee of the accuracy or completeness of information in this document.
== END 2023-11-22 19:43 | disposition home or self-care (01) ==
LOC: LAB 19:42
PROVIDERS: PCP Family Medicine; Visit Provider Obstetrics & Gynecology
DX: Z01.419 Encounter for gynecological examination (general) (routine) without abnormal findings (principal)
CPT/HCPCS: 88175

== ENCOUNTER 2023-12-09 09:37 | Outpatient (OUT) | payer OTHER, SELFPAY ==
[2023-12-11 00:07] LABS: AFP Value 34.7 ng/mL (.); Gest. Age on Collection Date 19.3 weeks (.); Insulin Dep Diabetes No (.); Maternal Age At EDD 28.7 yr (.); OSBR Risk 1 IN 10000 (.); Results Report (.)
--- OUTSIDE RECORDS SUMMARY | 2023-12-12 09:46 | XMS_ITS | CCD ---
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 Name Role Phone ANEUDY, DR OSPINA Admitting Unavailable ANEUDY, DR OSPINA Attending Unavailable [...] Dee Buchanan Unavailable MARLENE PLASENCIA Attending Unavailable MARLENE PLASENCIA Attending Unavailable MARLENE PLASENCIA Attending Unavailable MARLENE PLASENCIA Attending Unavailable SANGEETHA GRAY Attending Unavailable GEE MARTINEZ Attending Unavailable ANAI AMADO Attending Unavailable ANEUDYANAI Garcia Attending Unavailable HEMMARLENE MANDEL Attending Unavailable Allergies Allergy Classification Reported Allergen(s) Allergy Type Date of Onset Reaction(s) Facility (1 source) Cephalexin Drug Allergy [facility] Rep[facility] Medications Current Medications Medication Drug [...] 3V*on 2022 XR wrist LT min 3V* [place] [address] XRay Report Signed Patient: Nazia Harper MR#: [id number] 67 : 1995 Acct:[id number] Age/Sex: 26 / F ADM Date: 05/11/22 Loc: [facility] Room: Type: [facility] Attending Dr: Dee Buchanan MD Copies to: [...] Travis Jr., D.OJuanis05/11/2022 12:18 PM Dictation Location: [facility]- Transcribed By: [facility] 05/11/22 1218 Dictated By: Tan Travis Jr, DO 05/11/22 1217 Signed By: 05/11/22 1218 Normal [facility] XR wrist LT min 3V* [facility] [employer] Other XR wrist LT min 3V* [facility] Actions Other XR wrist LT min 3V* [address] [place] [address] Actions Other XR wrist LT min 3V* [place] [address] Actions Other XR wrist LT min 3V* XRay Report Actions Other XR wrist LT min 3V* Signed Actions Other XR wrist LT min 3V* Patient: Nazia Harper MR#: [id number] Actions Other XR wrist LT min 3V* 67 Actions Other XR wrist LT min 3V* : 1995 Acct:[id number] Actions Other XR wrist LT min 3V* Age/Sex: 26 / F ADM Date: 05/11/22 Actions Other XR wrist LT min 3V* Loc: [facility] Room: Type: [facility] Actions Other XR wrist LT min 3V* Attending Dr: Dee Buchanan MD Actions Other XR wrist LT min 3V* Copies to: Dee Buchanan MD Actions Other XR wrist LT min 3V* Ordering Provider: Dee Buchanan MD Actions Other XR wrist LT min 3V* Date of Service: 05/11/22 Actions Other XR wrist LT min 3V* XR/XR wrist LT min 3V*: PAIN Actions Other XR wrist LT min 3V* LEFT WRIST - 4 views Actions Other XR wrist LT min 3V* CLINICAL HISTORY: Ganglion cyst posterior aspect at the level of the carpals. Actions Other XR wrist LT min 3V* COMPARISON: None Actions Other XR wrist LT min 3V* FINDINGS: Actions Other XR wrist LT min 3V* No focal soft tissue abnormality is noted. No acute bony process is seen. Carpal bones appear Actions Other XR wrist LT min 3V* unremarkable. Actions Other XR wrist LT min 3V* XR/XR wrist LT min 3V* Actions Other XR wrist LT min 3V* IMPRESSION: Actions Other XR wrist LT min 3V* NO ACUTE BONY PROCESS. Actions Other XR wrist LT min 3V* Impression dictated by: Tan Travis Jr. DJuanisOJuanis05/11/2022 12:18 PM Actions Other XR wrist LT min 3V* Dictation Location: [place] [address] Actions Other XR wrist LT min 3V* Transcribed By: JOSE ALEJANDRO 05/11/22 1218 Actions Other XR wrist LT min 3V* Dictated By: Tan Travis Jr, DO 05/11/22 1211 Actions Other XR wrist LT min 3V* Signed By: Actions Other XR wrist LT min 3V* 05/11/22 1217 Actions Other PAP ACOG PANEL 2: 21 to 29on 08-15-2021 . . Normal [facility] Comment on above: Result Comment: Perf ormed at: BA Performed By: #### [id number] #### [facility] [address] [place] [address] Dr. Alek Fu Age Gdln ACOG Testing [facility] Comment on above: Performed By: #### [id number] #### [facility] [address] [place] [address] Dr. Alek Fu DIAGNOSIS: Comment [facility] Comment on above: Result Comment: NEGA TIVE FOR INTRAEPITHELIAL LESION OR MALIGNANCY. Performed at: BA Performed By: #### [id number] #### [facility] [address] [address] [address] Alek Fu Methodology: Comment [facility] Comment on above: Result Comment: This liquid based ThinPrep(R) pap test was screened with the use of an image guided system. Performed at: WB Performed By: #### [id number] #### [facility] [address] [place] [address] Dr. Alek uF Note: Comment [facility] Comment on above: Result Comment: The Pap smear is a screening test designed to aid in the detection of premalignant and malignant conditions of the uterine cervix. It is not a diagnostic procedure and should not be used as the sole means of detecting cervical cancer. Both false-positive and false-negative reports do occur. . Performed at: WB Performed By: #### [id number] #### [facility] [address] [place] [address] Dr. Alek Fu Performed by: Comment [facility] Comment on above: Result Comment: Elen Carrillo, Aircraft De Icer Installer (ASCP) Performed at: BA Performed By: #### [id number] #### [facility] [address] [place] [address] Dr. Alek Fu Reflex Criteria: Comment Normal [facility] Comment on above: Result Comment: The HPV DNA reflex criteria were not met with this specimen result therefore, no HPV testing was performed. . Performed at: BA Performed By: #### [id number] #### [facility] [address] [place] [address] Dr. Alek Fu Specimen adequacy: Comment Normal [facility] Comment on above: Result Comment: Sati sfactory for evaluation. Endocervical and/or squamous metaplastic cells (endocervical component) are present. Performed at: BA Performed By: #### [id number] #### [facility] [address] [place] [address] Dr. Alek Fu XR KNEE SABRINA 4V [...] by: ZURI PHOENIX Date: 2021-07-17 17:09 Normal [facility] CBC AUTO DIFFon 12-08-2020 BASO # 0.0 103/ul Normal 0.0-0.1 [facility] Comment on above: Performed By: #### C BC #### [facility] [address] [place] [address] Dr. Alek Fu Basophils/100 WBC (Bld) 0.2 % Normal 0.2-2.0 [facility] Comment on above: Performed By: #### C BC #### [facility] [address] [place] [address] Dr. Alek Fu EO # 0.0 103/ul Normal 0.0-0.7 [facility] Comment on above: Performed By: #### C BC #### [facility] [address] [place] [address] Dr. Alek Fu Eosinophils/100 WBC (Bld) 0.6 % Critically low 0.9-7.0 [facility] Comment on above: Performed By: #### C BC #### [facility] [address] [place] [address] Dr. Alek Fu Erythrocyte distribution width (RBC) [Ratio] 12.4 % Normal 11.0-15.0 [facility] Comment on above: Performed By: #### C BC #### [facility] [address] [place] [address] Dr. Alek Fu Hematocrit (Bld) [Volume fraction] 44.3 % Normal 36.0-48.0 [facility] Comment on above: Performed By: #### C BC #### [facility] [address] [place] [address] Dr. Alek Fu Hemoglobin (Bld) [Mass/Vol] 15.4 g/dL Normal 12.0-16.0 [facility] Comment on above: Performed By: #### C BC #### [facility] [address] [place] [address] Dr. Alek Fu IG # 0.04 10e3/ul Critically high 0.00-0.[address] [facility] Comment on above: Performed By: #### C BC #### [facility] [address] [place] [address] Dr. Alek Fu IG % 0.6 % Critically high 0.0-0.5 [facility] Comment on above: Performed By: #### C BC #### [facility] [address] [place] [address] Dr. Alek Fu LYMPH # 3.2 103/ul Normal 1.2-3.8 [facility] Comment on above: Performed By: #### C BC #### [facility] [address] [place] [address] Dr. Alek Fu Lymphocytes/100 WBC (Bld) 50.2 % Normal 20.5-60.0 [facility] Comment on above: Performed By: #### C BC #### [facility] [address] [place] [address] Dr. Alek Fu MANUAL DIFF REQ NO Normal [facility] Comment on above: Performed By: #### C BC #### [facility] [address] [place] [address] Dr. Alek Fu MCH (RBC) [Entitic mass] 28.7 pg Normal 26.7-34.0 [facility] Comment on above: Performed By: #### C BC #### [facility] [address] [place] [address] Dr. Alek Fu MCHC (RBC) [Mass/Vol] 34.8 g/dL Normal 29.9-35.2 [facility] Comment on above: Performed By: #### C BC #### [facility] [address] [place] [address] Dr. Alek Fu MCV (RBC) [Entitic vol] 82.5 fL Normal 81.0-99.0 [facility] Comment on above: Performed By: #### C BC #### [facility] [address] [place] [address] Dr. Alek Fu MONO # 0.6 103/ul Normal 0.3-0.8 [facility] Comment on above: Performed By: #### C BC #### [facility] [address] [place] [address] Dr. Alek Fu Monocytes/100 WBC (Bld) 10.0 % Normal 1.7-12.0 [facility] Comment on above: Performed By: #### C BC #### [facility] [address] [place] [address] Dr. Alek Fu NEUT # 2.4 103/ul Normal 1.4-6.5 [facility] Comment on above: Performed By: #### C BC #### [facility] [address] [place] [address] Dr. Alek Fu Neutrophils/100 WBC (Bld) 38.4 % Critically low 43.0-75.0 [facility] Comment on above: Performed By: #### C BC #### [facility] [address] [place] [address] Dr. Alek Fu Platelet mean volume (Bld) [Entitic vol] 9.9 fL Normal 9.5-13.5 [facility] Comment on above: Performed By: #### C BC #### [facility] [address] [place] [address] Dr. Alek Fu PLT 206 103/ul Normal 150-450 [facility] Comment on above: Performed By: #### C BC #### [facility] [address] [place] [address] Dr. Alek Fu RBC 5.37 106/ul Normal 4.20-5.40 [facility] Comment on above: Performed By: #### C BC #### [facility] [address] [place] [address] Dr. Alek Fu WBC 6.3 103/ul Normal 4.0-11.0 [facility] Comment on above: Performed By: #### C BC #### [facility] [address] [place] [address] Dr. Alek Fu ER URINE PROFILEon 1 Bilirubin Ql (U) Negative Normal NEGATIVE [facility] Comment on above: Performed By: #### E RUR #### [facility] [address] [place] [address] Dr. Alek Fu Clarity (U) CLEAR Normal CLEAR [facility] Comment on above: Performed By: #### E RUR #### [facility] [address] [place] [address] Dr. Alek Fu Color (U) YELLOW Normal YELLOW [facility] Comment on above: Performed By: #### E RUR #### [facility] [address] [place] [address] Dr. Alek Fu ERUAHD A micrscopic examination will be performed if indicated. Normal [facility] Comment on above: Performed By: #### E RUR #### [facility] [address] [place] [address] Dr. Alek Fu Glucose Ql (U) Negative Normal NEGATIVE [facility] Comment on above: Performed By: #### E RUR #### [facility] [address] [address] [address] Alek Fu Hemoglobin Ql (U) TRACE-INTACT Abnormal NEGATIVE [facility] Comment on above: Performed By: #### E RUR #### [facility] [address] [place] [address] Dr. Alek Fu Ketones Ql (U) TRACE Abnormal NEGATIVE [facility] Comment on above: Performed By: #### E RUR #### [facility] [address] [place] [address] Dr. Alek Fu LEUKOCYTES Negative Normal NEGATIVE [facility] Comment on above: Performed By: #### E RUR #### [facility] [address] [place] [address] Dr. Alek Fu Nitrite Ql (U) Negative Normal NEGATIVE [facility] Comment on above: Performed By: #### E RUR #### [facility] [address] [place] [address] Dr. Alek Fu pH (U) 6.0 [pH] Normal 5-9 [facility] Comment on above: Performed By: #### E RUR #### [facility] [address] [place] [address] Dr. Alek Fu SPEC GRAVITY 1.015 Normal 1.005-<=1.025 [facility] Comment on above: Performed By: #### E RUR #### [facility] [address] [place] [address] Dr. Alek Fu UA PROTEIN Negative Normal NEGATIVE/ TRACE [facility] Comment on above: Performed By: #### E RUR #### [facility] [address] [place] [address] Dr. Alek Fu UR MICRO IND NOT INDICATED Normal [facility] Comment on above: Performed By: #### E RUR #### [facility] [address] [place] [address] Dr. Alek Fu Urobilinogen Qn (U) 0.2 {Roya'U}/dL Normal 0.2 - 1.0 [facility] Comment on above: Performed By: #### E RUR #### [facility] [address] [address] [address] Alek Fu URon 12-08-2020 , QUAL Negative Normal NEGATIVE [facility] Comment on above: Performed By: #### P REGU #### [facility] [address] [place] [address] Dr. Alek Fu PROF CHEM 8 (BAS METB)on Anion gap [Moles/Vol] 13.0 mmol/L Normal [facility] Comment on above: Performed By: #### B MP #### [facility] [address] [place] [address] Dr. Alek Fu Calcium [Mass/Vol] 9.0 mg/dL Normal 8.4-10.2 [facility] Comment on above: Performed By: #### B MP #### [facility] [address] [place] [address] Dr. Alek Fu Chloride [Moles/Vol] 103 mmol/L Normal 98-107 [facility] Comment on above: Performed By: #### B MP #### [facility] [address] [place] [address] Dr. Alek Fu CO2 [Moles/Vol] 25.0 mmol/L Normal 22.0-30.0 [facility] Comment on above: Performed By: #### B MP #### [facility] [address] [place] [address] Dr. Alek Fu Creatinine [Mass/Vol] 0.96 mg/dL Normal 0.52-1.04 [facility] Comment on above: Performed By: #### B MP #### [facility] [address] [place] [address] Dr. Alek Fu EGFR-AF QATARI >60 Normal >=60 [facility] Comment on above: Performed By: #### B MP #### [facility] [address] [place] [address] Dr. Alek Fu EGFR-NON AF QATARI >60 Normal >=60 [facility] Comment on above: Performed By: #### B MP #### [facility] [address] [address] [address] Alek Fu Glucose [Mass/Vol] 99 mg/dL Normal 74-106 [facility] Comment on above: Performed By: #### B MP #### [facility] [id number] Alek Fu Potassium [Moles/Vol] 3.0 mmol/L Critically low 3.4-5.0 [facility] Comment on above: Performed By: #### B MP #### [facility] [address] [address] [address] Alek Fu Sodium [Moles/Vol] 138 mmol/L Normal 137-145 [facility] Comment on above: Performed By: #### B MP #### [facility] [address] [address] [address] Alek Fu Urea nitrogen [Mass/Vol] 11.0 mg/dL Normal 7.0-17.0 [facility] Comment on above: Performed By: #### B MP #### [facility] [address] [address] [address] Alek Fu Urea nitrogen/Creatini ne [Mass ratio] 11.5 mg/mg Normal [facility] Comment on above: Performed By: #### B MP #### [facility] [address] [address] [address] Alek [facility]-19 SARS-CoV-2 (COVID-19) RNA SANTANA+probe Ql (Unsp spec) Detected Critically abnormal NOT DETECTED [facility] Comment on above: Result Comment: This test is not yet approved or cleared by the [place] FDA. When there are no FDA-approved or cleared tests available, and other criteria are met, FDA can make tests available under an emergency access mechanism called an Emergency Use Authorization (EUA). The EUA for this test is supported by the [place] of Health and Human Service's (HHS's) declaration [...] used). Performed By: #### C VDTB #### [facility] [address] [address] [address] Alek Fu Encounters Encounter Date Encounter Type Care Provider Facility Start: 11-23-2023 End: 11-23-2023 ambulatory MARLENE Bosch HEMMER Not Available Start: 11-22-2023 End: 11-22-2023 ambulatory ANAI ANEUDY Not Available Start: 10-24-2023 End: 10-24-2023 ambulatory ANAI ANEUDY Not Available Start: 10-11-2023 End: 10-11-2023 ambulatory GEE MARTINEZ Not Available Start: 09-29-2023 End: 09-29-2023 ambulatory MARLENE HEMMER Not Available Start: 09-08-2023 End: 09-08-2023 ambulatory SANGEETHA Bosch ISAAC Not Available Start: 07-26-2023 End: 07-26-2023 ambulatory MARLENE M HEMMER Not Available Start: 06-16-2023 End: 06-16-2023 ambulatory MARLENE M HEMMER Not Available Start: 03-23-2023 End: 03-23-2023 ambulatory MARLENE M HEMMER Not Available Start: 02-15-2023 End: 02-15-2023 ambulatory MARLENE M HEMMER Not Available Start: 05-11-2022 Office outpatient ne w 45 minutes [facility] Start: 05-11-2022 End: 05-11-2022 ambulatory Dee Buchanan Facility:[facility] Start: 05-11-2022 End: 05-11-2022 ambulatory MD Dee Buchanan Work Phone: [facility] Work Phone: Start: 05-11-2022 End: 05-11-2022 Patient encounter procedure MD Dee Buchanan Work Phone: [facility] Start: 08-10-2021 End: 08-10-[address] ANAI AMADO Facility:[facility] Start: 07-17-2021 End: 07-18-[address] MARLENE PLASENCIA Facility:[facility] Start: 12-08-2020 End: 12-08-[address] DANIEL LAMB Facility:[facility] Start: 12-03-2020 End: 12-03-[address] DANIEL LAMB Facility:[facility] Procedures Date Procedure Procedure Detail Performing Clinician Start: 05-11-2022 Plain X-ray of left wrist MD Dee Buchanan Work Phone: Payers Date Payer Category Payer Private Health Insurance [id number] 2022 Private Health Insurance [id number] 2022 Self-pay 2022 Unknown [id number] 1995 Unknown [id number] 2.16.84 [id number] 1995 Unknown [id number] 2.16.84 0.1.511813.3.579.2.593 1995 Unknown [id number] 2.16.84 0.1.281999.3.579.2.593 1995 Unknown [id number] 2.16.84 0.1.732847.3.579.2.593 1995 Unknown [id number] 2.16.84 0.1.614168.3.579.2.1259 1995 Unknown [id number] 2.16.84 0.1.049450.3.579.2.1259 1995 Unknown [id number] 2.16.84 0.1.499905.3.579.2.1259 1995 Unknown [id number] 2.16.84 0.1.624454.3.579.2.9 1995 Unknown [id number] 2.16.84 0.1.442120.3.579.2.1259 1995 Unknown [id number] 2.16.84 0.1.752523.3.579.2.1259 1995 Unknown [id number] 2.16.84 0.1.085949.3.579.2.1259 1995 Unknown [id number] 2.16.84 0.1.154386.3.579.2.9 1995 Unknown [id number] 2.16.840 .1.361080.3.579.2.1259 1995 Unknown [id number] 2.16.840 .1.783801.3.579.2.1259 1959 Unknown [id number] 1959 Unknown [id number] 1959 Unknown [id number] Unknown [id number] 2.16.8 40.1.931128.3.579.2.531 Social History Date Type Detail Facility Tobacco smoking status MSIS Unknown if ever smoked [facility] Work Phone: Start: 1995 Sex Assigned At Female F [facility] Sex Assigned At Sex Assigned At [facility] Actions Other Evaluation note 05-11-2022 Note Date & [...] Instructed patient to wear brace for activities. Actions Other Evaluation note Note Date & Type Note Facility Evaluation note No assessment information availa ble [facility] Work Phone: History general Narrative - Reported Note Date & Type Note Facility History general Narrative - Reported Type Medical History learning disability Surgical History tymponostomy x7 [facility] [employer] Other Summary Purpose Family History No Family History Records FoundNo Family History Records FoundNo Family History Records Found Advance Directives No Advanced Directives Records FoundNo Advanced Directives Records FoundNo Advanced Directives Records Found Additional Source Comments INFORMATION SOURCE (unrecogn ized section and content) DATE CREATED AUTHOR 09/12/2021 [facility] DATE CREATED AUTHOR AUTHOR'S ORGANIZ ATION 05/21/2022 [facility] DATE CREATED AUTHOR AUTHOR'S ORGANIZ ATION 11/24/2023 [facility] [employer] Care Teams (unrecognized sec tion and content) Team Status: Inactive Member Role Status Dates Dee Buchanan MD Attending Provider Active Goals (unrecognized section and content) Goals may be documented in a n alternate sectionNo Information REASON FOR VISIT (unrecogniz ed section and content) CONSULT MARLENE PLASENCIA LT WRJAYSON T GANG CYST NX FOR RECORDS PERTAINING [...] BE BASED ON THE PRIMARY CLINICAL RECORDS. [employer] provides no warranty or guarantee of the accuracy or completeness of information in this document.
== END 2023-12-09 09:38 | disposition home or self-care (01) ==
LOC: LAB 12-12 09:38
PROVIDERS: PCP Family Medicine; Visit Provider Obstetrics & Gynecology
DX: Z34.92 Encounter for supervision of normal pregnancy, unspecified, second trimester (principal)
CPT/HCPCS: 36415; 82105

== ENCOUNTER 2023-12-14 09:08 | Outpatient (OUT) | payer OTHER, SELFPAY ==
--- NOTE | 2023-12-14 09:11 | US_ITS ---
[address] [address] Patient Name: ELIZABETH MOLINA MRN: [id number] date: 1995 Sex: F Assigned Patient Location: [facility] Current Patient Location: LAB Accession/Order Number: [id number] Exam Date: 12/14/2023 09:11 Report Date: 12/14/2023 11:24 At the request of: ANAI AMADO Procedure: US OB cervical length EXAMINATION: US OB anatomy HISTORY: ANATOMY COMPARISON: Ultrasound OB transvaginal 09/29/2023 TECHNIQUE: Transabdominal sonographic examination was performed for obstetrical and evaluation. FINDINGS: Number: 1 Heart Rate: 145 bpm H.B. /min Amniotic Fluid Volume: Subjectively normal Placental Location: POSTERIOR with lower margin 3.0 cm from os. Cervix Length: 4.62 cm ; closed ANATOMY: Normal Structures -cerebellum, choroid plexus, cisterna magna, lateral cerebral ventricles, orbits, midline falx, hard palate, four-chamber heart, RVOT, LVOT, stomach, kidneys, bladder, umbilical cord insertion into abdomen, three-vessel cord, cervical spine, thoracic spine, lumbar spine, sacral spine, right upper extremity, left upper extremity, right lower extremity, left lower extremity. SUBOPTIMALLY SEEN: None ABNORMALITIES: Echogenic focus within left cardiac ventricle. BIOMETRY: BPD: 4.66 cm; 20 weeks 1 day; 53.70 % HC: 17.55 cm; 20 weeks 0 days; 44.80 % AC: 14.54 cm; 19 weeks 6 days; 39.20 % FL: 3.23 cm; 20 weeks 0 days; 44.70 % EFW:326.53 g; 43.40 % FL/AC: 22.21 FL/BPD: 69.31 HC/AC: 1.21 GESTATIONAL AGE: Age by EDC: 20 weeks 0 days Age by current US: 20 weeks 0 days ABDIRIZAK by current US: 2024-05-02 ABDIRIZAK by EDC: 2024-05-02 US/US OB cervical length IMPRESSION: 1. Single live intrauterine with growth detailed above. 2. Echogenic focus seen within left cardiac ventricle; nonspecific but typically associated with the trisomy syndromes. No additional abnormal findings. 3. Low-lying posterior placenta. Electronically authenticated by: RICHARD SCHULZ Date: 12/14/2023 11:24
--- NOTE | 2023-12-14 09:11 | US_ITS ---
[address] [address] Patient Name: ELIZABETH MOLINA MRN: [id number] date: 1995 Sex: F Assigned Patient Location: [facility] Current Patient Location: LAB Accession/Order Number: [id number] Exam Date: 12/14/2023 09:11 Report Date: 12/14/2023 11:24 At the request of: ANAI AMADO Procedure: US OB anatomy EXAMINATION: US OB anatomy HISTORY: ANATOMY COMPARISON: Ultrasound OB transvaginal 09/29/2023 TECHNIQUE: Transabdominal sonographic examination was performed for obstetrical and evaluation. FINDINGS: Number: 1 Heart Rate: 145 bpm H.B. /min Amniotic Fluid Volume: Subjectively normal Placental Location: POSTERIOR with lower margin 3.0 cm from os. Cervix Length: 4.62 cm ; closed ANATOMY: Normal Structures -cerebellum, choroid plexus, cisterna magna, lateral cerebral ventricles, orbits, midline falx, hard palate, four-chamber heart, RVOT, LVOT, stomach, kidneys, bladder, umbilical cord insertion into abdomen, three-vessel cord, cervical spine, thoracic spine, lumbar spine, sacral spine, right upper extremity, left upper extremity, right lower extremity, left lower extremity. SUBOPTIMALLY SEEN: None ABNORMALITIES: Echogenic focus within left cardiac ventricle. BIOMETRY: BPD: 4.66 cm; 20 weeks 1 day; 53.70 % HC: 17.55 cm; 20 weeks 0 days; 44.80 % AC: 14.54 cm; 19 weeks 6 days; 39.20 % FL: 3.23 cm; 20 weeks 0 days; 44.70 % EFW:326.53 g; 43.40 % FL/AC: 22.21 FL/BPD: 69.31 HC/AC: 1.21 GESTATIONAL AGE: Age by EDC: 20 weeks 0 days Age by current US: 20 weeks 0 days ABDIRIZAK by current US: 2024-05-02 ABDIRIZAK by EDC: 2024-05-02 US/US OB anatomy IMPRESSION: 1. Single live intrauterine with growth detailed above. 2. Echogenic focus seen within left cardiac ventricle; nonspecific but typically associated with the trisomy syndromes. No additional abnormal findings. 3. Low-lying posterior placenta. Electronically authenticated by: RICHARD SCHULZ Date: 12/14/2023 11:24
--- OUTSIDE RECORDS SUMMARY | 2023-12-14 09:25 | XMS_ITS | CCD ---
Author Organization [facility] Care Team Providers Care Catering Director Name Role Phone ANEUDY, DR OSPINA Admitting [...] Facility (1 source) Cephalexin Drug Allergy [facility] Repository Medications Current Medications Medication Drug Class(es) [...] 3V*on 2022 XR wrist LT min 3V* [facility] [place] [address] XRay Report Signed Patient: Nazia Harper MR#: [id number] 67 : 1995 Acct:[id number] Age/Sex: 26 / F ADM Date: 05/11/22 [place] [facility]: Type: [facility] Attending Dr: Dee Buchanan MD Copies [...] Travis Jr., D.OJuanis05/11/2022 12:18 PM Dictation Location: [facility]- Transcribed By: [facility] 05/11/22 1218 Dictated By: Tan Travis Jr, DO 05/11/22 1217 Signed By: 05/11/22 1218 Normal XR wrist LT min 3V* [facility] [employer] Other XR wrist LT min 3V* [facility] [employer] Other XR wrist LT min 3V* [address] [place] [address] [employer] Other XR wrist LT min 3V* [place] [address] [employer] Other XR wrist LT min 3V* XRay Report [employer] Other XR wrist LT min 3V* Signed [employer] Other XR wrist LT min 3V* Patient: Nazia Harper MR#: [id number] [employer] Other XR wrist LT min 3V* 67 [employer] Other XR wrist LT min 3V* : 1995 Acct:[id number] [employer] Other XR wrist LT min 3V* Age/Sex: 26 / F ADM Date: 05/11/22 [employer] Other XR wrist LT min 3V* Loc: [facility] Room: Type: [facility] [employer] Other XR wrist LT min 3V* Attending Dr: Dee Buchanan MD [employer] Other XR wrist LT min 3V* Copies to: Dee Buchanan MD [employer] Other XR wrist LT min 3V* Ordering Provider: Dee Buchanan MD [employer] Other XR wrist LT min 3V* Date of Service: 05/11/22 [employer] Other XR wrist LT min 3V* XR/XR wrist LT min 3V*: PAIN [employer] Other XR wrist LT min 3V* LEFT WRIST - 4 views [employer] Other XR wrist LT min 3V* CLINICAL HISTORY: Ganglion cyst posterior aspect at the level of the carpals. [employer] Other XR wrist LT min 3V* COMPARISON: None [employer] Other XR wrist LT min 3V* FINDINGS: [employer] Other XR wrist LT min 3V* No focal soft tissue abnormality is noted. No acute bony process is seen. Carpal bones appear [employer] Other XR wrist LT min 3V* unremarkable. [employer] Other XR wrist LT min 3V* XR/XR wrist LT min 3V* [employer] Other XR wrist LT min 3V* IMPRESSION: [employer] Other XR wrist LT min 3V* NO ACUTE BONY PROCESS. [employer] Other XR wrist LT min 3V* Impression dictated by: Tan Travis Jr. DJuanisOJuanis05/11/2022 12:18 PM [employer] Other XR wrist LT min 3V* Dictation Location: [place] [address] [employer] Other XR wrist LT min 3V* Transcribed By: JOSE ALEJANDRO 05/11/22 1218 [employer] Other XR wrist LT min 3V* Dictated By: Tan Travis Jr, DO 05/11/22 1219 [employer] Other XR wrist LT min 3V* Signed By: [employer] Other XR wrist LT min 3V* 05/11/22 121 [employer] Other PAP ACOG PANEL 2: 21 to 29on 08-15-2021 . . Normal [facility] Comment on above: Result Comment: Perf ormed at: BA Performed By: #### [id number] #### [facility] [address] [place] [address] Dr. lAek Fu Age Gdln ACOG Testing [facility] Comment on above: Performed By: #### [id number] #### [facility] [address] [place] [address] Dr. Alek Fu DIAGNOSIS: Comment [facility] Comment on above: Result Comment: NEGA TIVE FOR INTRAEPITHELIAL LESION OR MALIGNANCY. Performed at: BA Performed By: #### [id number] #### [facility] [address] [address] [address] Alek Fu Methodology: Comment [facility] Comment on above: Result Comment: This liquid based ThinPrep(R) pap test was screened with the use of an image guided system. Performed at: WB Performed By: #### [id number] #### [facility] [address] [place] [address] Dr. Alek Fu Note: Comment [facility] Comment on above: Result Comment: The Pap smear is a screening test designed to aid in the detection of premalignant and malignant conditions of the uterine cervix. It is not a diagnostic procedure and should not be used as the sole means of detecting cervical cancer. Both false-positive and false-negative reports do occur. . Performed at: WB Performed By: #### [id number] #### [facility] [address] [place] [address] Dr. Alek Fu Performed by: Comment [facility] Comment on above: Result Comment: Elen Carrillo, Production Control Pegboard Clerk (ASCP) Performed at: BA Performed By: #### [id number] #### [facility] [address] [place] [address] Dr. Alek Fu Reflex Criteria: Comment Normal [facility] Comment on above: Result Comment: The HPV DNA reflex criteria were not met with this specimen result therefore, no HPV testing was performed. . Performed at: BA Performed By: #### [id number] #### [facility] [address] [place] [address] Dr. Alek Fu Specimen adequacy: Comment Normal [facility] Comment on above: Result Comment: Sati sfactory for evaluation. Endocervical and/or squamous metaplastic cells (endocervical component) are present. Performed at: BA Performed By: #### [id number] #### [facility] [address] [place] [address] Dr. Alek Fu XR KNEE SABRINA 4V [...] by: ZURI PHOENIX Date: 2021-07-17 17:09 Normal [facility] CBC AUTO DIFFon 12-08-2020 BASO # 0.0 103/ul Normal 0.0-0.1 [facility] Comment on above: Performed By: #### C BC #### [facility] [address] [place] [address] Dr. Alek Fu Basophils/100 WBC (Bld) 0.2 % Normal 0.2-2.0 [facility] Comment on above: Performed By: #### C BC #### [facility] [address] [place] [address] Dr. Alek Fu EO # 0.0 103/ul Normal 0.0-0.7 [facility] Comment on above: Performed By: #### C BC #### [facility] [address] [place] [address] Dr. Alek Fu Eosinophils/100 WBC (Bld) 0.6 % Critically low 0.9-7.0 [facility] Comment on above: Performed By: #### C BC #### [facility] [address] [place] [address] Dr. Alek Fu Erythrocyte distribution width (RBC) [Ratio] 12.4 % Normal 11.0-15.0 [facility] Comment on above: Performed By: #### C BC #### [facility] [address] [place] [address] Dr. Alek Fu Hematocrit (Bld) [Volume fraction] 44.3 % Normal 36.0-48.0 [facility] Comment on above: Performed By: #### C BC #### [facility] [address] [place] [address] Dr. Alek Fu Hemoglobin (Bld) [Mass/Vol] 15.4 g/dL Normal 12.0-16.0 [facility] Comment on above: Performed By: #### C BC #### [facility] [address] [place] [address] Dr. Alek Fu IG # 0.04 10e3/ul Critically high 0.00-0.03 [facility] Comment on above: Performed By: #### C BC #### [facility] [address] [place] [address] Dr. Alek Fu IG % 0.6 % Critically high 0.0-0.5 [facility] Comment on above: Performed By: #### C BC #### [facility] [address] [place] [address] Dr. Alek Fu LYMPH # 3.2 103/ul Normal 1.2-3.8 [facility] Comment on above: Performed By: #### C BC #### [facility] [address] [place] [address] Dr. Alek Fu Lymphocytes/100 WBC (Bld) 50.2 % Normal 20.5-60.0 [facility] Comment on above: Performed By: #### C BC #### [facility] [address] [place] [address] Dr. Alek Fu MANUAL DIFF REQ NO Normal [facility] Comment on above: Performed By: #### C BC #### [facility] [address] [place] [address] Dr. Alek Fu MCH (RBC) [Entitic mass] 28.7 pg Normal 26.7-34.0 [facility] Comment on above: Performed By: #### C BC #### [facility] [address] [place] [address] Dr. Alek Fu MCHC (RBC) [Mass/Vol] 34.8 g/dL Normal 29.9-35.2 [facility] Comment on above: Performed By: #### C BC #### [facility] [address] [place] [address] Dr. Alek Fu MCV (RBC) [Entitic vol] 82.5 fL Normal 81.0-99.0 [facility] Comment on above: Performed By: #### C BC #### [facility] [address] [place] [address] Dr. Alek Fu MONO # 0.6 103/ul Normal 0.3-0.8 [facility] Comment on above: Performed By: #### C BC #### [facility] [address] [place] [address] Dr. Alek Fu Monocytes/100 WBC (Bld) 10.0 % Normal 1.7-12.0 [facility] Comment on above: Performed By: #### C BC #### [facility] [address] [place] [address] Dr. Alek Fu NEUT # 2.4 103/ul Normal 1.4-6.5 [facility] Comment on above: Performed By: #### C BC #### [facility] [address] [place] [address] Dr. Alek Fu Neutrophils/100 WBC (Bld) 38.4 % Critically low 43.0-75.0 [facility] Comment on above: Performed By: #### C BC #### [facility] [address] [place] [address] Dr. Alek Fu Platelet mean volume (Bld) [Entitic vol] 9.9 fL Normal 9.5-13.5 [facility] Comment on above: Performed By: #### C BC #### [facility] [address] [place] [address] Dr. Alek Fu PLT 206 103/ul Normal 150-450 [facility] Comment on above: Performed By: #### C BC #### [facility] [address] [place] [address] Dr. Alek Fu RBC 5.37 106/ul Normal 4.20-5.40 [facility] Comment on above: Performed By: #### C BC #### [facility] [address] [place] [address] Dr. Alek Fu WBC 6.3 103/ul Normal 4.0-11.0 [facility] Comment on above: Performed By: #### C BC #### [facility] [address] [place] [address] Dr. Alek uF ER URINE PROFILEon 1 Bilirubin Ql (U) Negative Normal NEGATIVE [facility] Comment on above: Performed By: #### E RUR #### [facility] [address] [place] [address] Dr. Alek Fu Clarity (U) CLEAR Normal CLEAR [facility] Comment on above: Performed By: #### E RUR #### [facility] [address] [place] [address] Dr. Alek Fu Color (U) YELLOW Normal YELLOW [facility] Comment on above: Performed By: #### E RUR #### [facility] [address] [place] [address] Dr. Alek Fu ERUAHD A micrscopic examination will be performed if indicated. Normal [facility] Comment on above: Performed By: #### E RUR #### [facility] [address] [place] [address] Dr. Alek Fu Glucose Ql (U) Negative Normal NEGATIVE [facility] Comment on above: Performed By: #### E RUR #### [facility] [address] [address] [address] Alek Fu Hemoglobin Ql (U) TRACE-INTACT Abnormal NEGATIVE [facility] Comment on above: Performed By: #### E RUR #### [facility] [address] [place] [address] Dr. Alek Fu Ketones Ql (U) TRACE Abnormal NEGATIVE [facility] Comment on above: Performed By: #### E RUR #### [facility] [address] [place] [address] Dr. Alek Fu LEUKOCYTES Negative Normal NEGATIVE [facility] Comment on above: Performed By: #### E RUR #### [facility] [address] [place] [address] Dr. Alek Fu Nitrite Ql (U) Negative Normal NEGATIVE [facility] Comment on above: Performed By: #### E RUR #### [facility] [address] [place] [address] Dr. Alek Fu pH (U) 6.0 [pH] Normal 5-9 [facility] Comment on above: Performed By: #### E RUR #### [facility] [address] [place] [address] Dr. Alek Fu SPEC GRAVITY 1.015 Normal 1.005-<=1.025 [facility] Comment on above: Performed By: #### E RUR #### [facility] [address] [place] [address] Dr. Alek Fu UA PROTEIN Negative Normal NEGATIVE/ TRACE [facility] Comment on above: Performed By: #### E RUR #### [facility] [address] [place] [address] Dr. Alek Fu UR MICRO IND NOT INDICATED Normal [facility] Comment on above: Performed By: #### E RUR #### [facility] [address] [place] [address] Dr. Alek Fu Urobilinogen Qn (U) 0.2 {Roya'U}/dL Normal 0.2 - 1.0 [facility] Comment on above: Performed By: #### E RUR #### [facility] [address] [address] [address] Alek Fu URon 12-08-2020 , QUAL Negative Normal NEGATIVE [facility] Comment on above: Performed By: #### P REGU #### [facility] [address] [place] [address] Dr. Alek Fu PROF CHEM 8 (BAS METB)on Anion gap [Moles/Vol] 13.0 mmol/L Normal [facility] Comment on above: Performed By: #### B MP #### [facility] [address] [place] [address] Dr. Alek Fu Calcium [Mass/Vol] 9.0 mg/dL Normal 8.4-10.2 [facility] Comment on above: Performed By: #### B MP #### [facility] [address] [place] [address] Dr. Alek Fu Chloride [Moles/Vol] 103 mmol/L Normal 98-107 [facility] Comment on above: Performed By: #### B MP #### [facility] [address] [place] [address] Dr. Alek Fu CO2 [Moles/Vol] 25.0 mmol/L Normal 22.0-30.0 [facility] Comment on above: Performed By: #### B MP #### [facility] [address] [place] [address] Dr. Alek Fu Creatinine [Mass/Vol] 0.96 mg/dL Normal 0.52-1.04 [facility] Comment on above: Performed By: #### B MP #### [facility] [address] [place] [address] Dr. Alek Fu EGFR-AF EGYPTIAN >60 Normal >=60 [facility] Comment on above: Performed By: #### B MP #### [facility] [address] [place] [address] Dr. Alek Fu EGFR-NON AF EGYPTIAN >60 Normal >=60 [facility] Comment on above: Performed By: #### B MP #### [facility] [address] [address] [address] Alek Fu Glucose [Mass/Vol] 99 mg/dL Normal 74-106 [facility] Comment on above: Performed By: #### B MP #### [facility] [address] [id number] Alek Fu Potassium [Moles/Vol] 3.0 mmol/L Critically low 3.4-5.0 [facility] Comment on above: Performed By: #### B MP #### [facility] [address] [address] [address] Alek Fu Sodium [Moles/Vol] 138 mmol/L Normal 137-145 [facility] Comment on above: Performed By: #### B MP #### [facility] [address] [address] [address] Alek Fu Urea nitrogen [Mass/Vol] 11.0 mg/dL Normal 7.0-17.0 [facility] Comment on above: Performed By: #### B MP #### [facility] [address] [address] [address] Alek Fu Urea nitrogen/Creatini ne [Mass ratio] 11.5 mg/mg Normal [facility] Comment on above: Performed By: #### B MP #### [facility] [address] [address] [address] Alek Fu [facility]on 11-19 SARS-CoV-2 (COVID-19) RNA SANTANA+probe Ql (Unsp spec) Detected Critically abnormal NOT DETECTED [facility] Comment on above: Result Comment: This test is not yet approved or cleared by the [place] FDA. When there are no FDA-approved or cleared tests available, and other criteria are met, FDA can make tests available under an emergency access mechanism called an Emergency Use Authorization (EUA). The EUA for this test is supported by the [place] of Health and Human Service's (HHS's) declaration [...] used). Performed By: #### C VDTB #### [facility] [address] [address] [address] Alek Fu Encounters Encounter Date Encounter [...] Start: 05-11-2022 End: 05-11-2022 ambulatory Dee Buchanan Facility: Start: 05-11-2022 End: 05-11-2022 ambulatory MD Dee Buchanan Work Phone: [facility] Work Phone: Start: 05-11-2022 End: 05-11-2022 Patient encounter procedure MD Dee Buchanan Work Phone: [facility] Start: 08-10-2021 End: 08-10-2021 [...] Payer Category Payer Private Health Insurance [id number] 2022 Private Health Insurance [id number] 2022 Self-pay 2022 Unknown [id number] 1995 Unknown [id number] 2.16.84 [id number] 1995 Unknown [id number] 2.16.84 0.1.896072.3.579.2.593 1995 Unknown [id number] 2.16.84 0.1.227420.3.579.2.593 1995 Unknown [id number] 2.16.84 0.1.891541.3.579.2.593 1995 Unknown [id number] 2.16.84 0.1.658037.3.579.2.1259 1995 Unknown [id number] 2.16.84 0.1.617270.3.579.2.1259 1995 Unknown [id number] 2.16.84 0.1.533945.3.579.2.1259 1995 Unknown [id number] 2.16.84 0.1.322649.3.579.2.9 1995 Unknown [id number] 2.16.84 0.1.985620.3.579.2.1259 1995 Unknown [id number] 2.16.84 0.1.036630.3.579.2.1259 1995 Unknown [id number] 2.16.84 0.1.723497.3.579.2.1259 1995 Unknown [id number] 2.16.84 0.1.224568.3.579.2.9 1995 Unknown [id number] 2.16.840 .1.372067.3.579.2.1259 1995 Unknown [id number] 2.16.840 .1.453769.3.579.2.1259 1959 Unknown [id number] 1959 Unknown [id number] 1959 Unknown [id number] Unknown [id number] 2.16.8 40.1.566982.3.579.2.531 Social History Date Type Detail Facility Tobacco smoking status OHIS Unknown if ever smoked [facility] Work Phone: Start: 1995 Sex Assigned At Female F [facility] Sex Assigned At Sex Assigned At [facility] th [employer] Other Evaluation note 05-11-2022 Note Date & [...] Instructed patient to wear brace for activities. [employer] Other Evaluation note Note Date & Type Note Facility Evaluation note No assessment information availa ble [facility] Work Phone: History general Narrative - Reported Note Date & Type Note Facility History general Narrative - Reported Type Medical History learning disability Surgical History tymponostomy x7 [facility] [employer] Other Summary Purpose Family History No Family History Records FoundNo Family History Records FoundNo Family History Records Found Advance Directives No Advanced Directives Records FoundNo Advanced Directives Records FoundNo Advanced Directives Records Found Additional Source Comments INFORMATION SOURCE (unrecogn ized section and content) DATE CREATED AUTHOR 09/12/2021 [facility] DATE CREATED AUTHOR AUTHOR'S ORGANIZ ATION 05/21/2022 [facility] DATE CREATED AUTHOR AUTHOR'S ORGANIZ ATION 11/24/2023 [facility] EPIC Care Teams (unrecognized sec [...] BE BASED ON THE PRIMARY CLINICAL RECORDS. [email or web address] provides no warranty or guarantee of the accuracy or completeness of information in this document.
== END 2023-12-14 09:09 | disposition home or self-care (01) ==
LOC: NOMS 09:09
PROVIDERS: PCP Family Medicine; Visit Provider Obstetrics & Gynecology
DX: O44.42 Low lying placenta NOS or without hemorrhage, second trimester (principal); Z36.89 Encounter for other specified antenatal screening; Z3A.20 20 weeks gestation of pregnancy
CPT/HCPCS: 76805; 76817

== ENCOUNTER 2024-01-17 09:34 | Outpatient (OUT) | payer OTHER, SELFPAY ==
--- NOTE | 2024-01-17 09:37 | US_ITS ---
The [address] [address] Patient Name: ELIZABETH MOLINA MRN: [id number] date: 1995 Sex: F Assigned Patient Location: [facility] Current Patient Location: [facility] Accession/Order Number: [id number] Exam Date: 01/17/2024 09:40 Report Date: 01/17/2024 11:31 At the request of: GEE MARTINEZ Procedure: US OB cervical length EXAMINATION: US OB follow up, US OB placenta, US OB cervical length HISTORY: ECHOGENIC FOCI COMPARISON: Ultrasound OB anatomy 12/14/2023 FINDINGS: Heart rate: 150 bpm Placenta: Posterior with lower margin 4.0 cm from os. Anatomy: Echogenic focus within left cardiac ventricle. Cervix: 5.2 cm in length; closed. GA: 24 weeks 6 days ABDIRIZAK: 05/02/2024 US/US OB cervical length IMPRESSION: 1. Single live intrauterine . 2. Persistent echogenic focus within the left cardiac ventricle; nonspecific but can be associated with the trisomy syndromes. 3. Posterior placenta which is no longer low-lying. Electronically authenticated by: RICHARD SCHULZ Date: 01/17/2024 11:31
--- NOTE | 2024-01-17 09:37 | US_ITS ---
The [address] [address] Patient Name: ELIZABETH MOLINA MRN: [id number] date: 1995 Sex: F Assigned Patient Location: [facility] Current Patient Location: [facility] Accession/Order Number: [id number] Exam Date: 01/17/2024 09:40 Report Date: 01/17/2024 11:31 At the request of: GEE MARTINEZ Procedure: US OB follow up EXAMINATION: US OB follow up, US OB placenta, US OB cervical length HISTORY: ECHOGENIC FOCI COMPARISON: Ultrasound OB anatomy 12/14/2023 FINDINGS: Heart rate: 150 bpm Placenta: Posterior with lower margin 4.0 cm from os. Anatomy: Echogenic focus within left cardiac ventricle. Cervix: 5.2 cm in length; closed. GA: 24 weeks 6 days ABDIRIZAK: 05/02/2024 US/US OB follow up IMPRESSION: 1. Single live intrauterine . 2. Persistent echogenic focus within the left cardiac ventricle; nonspecific but can be associated with the trisomy syndromes. 3. Posterior placenta which is no longer low-lying. Electronically authenticated by: RICHARD SCHULZ Date: 01/17/2024 11:31
--- NOTE | 2024-01-17 09:37 | US_ITS ---
The [address] [address] Patient Name: ELIZABETH MOLINA MRN: [id number] date: 1995 Sex: F Assigned Patient Location: [facility] Current Patient Location: [facility] Accession/Order Number: [id number] Exam Date: 01/17/2024 09:40 Report Date: 01/17/2024 11:31 At the request of: GEE MARTINEZ Procedure: US OB placenta EXAMINATION: US OB follow up, US OB placenta, US OB cervical length HISTORY: ECHOGENIC FOCI COMPARISON: Ultrasound OB anatomy 12/14/2023 FINDINGS: Heart rate: 150 bpm Placenta: Posterior with lower margin 4.0 cm from os. Anatomy: Echogenic focus within left cardiac ventricle. Cervix: 5.2 cm in length; closed. GA: 24 weeks 6 days ABDIRIZAK: 05/02/2024 US/US OB placenta IMPRESSION: 1. Single live intrauterine . 2. Persistent echogenic focus within the left cardiac ventricle; nonspecific but can be associated with the trisomy syndromes. 3. Posterior placenta which is no longer low-lying. Electronically authenticated by: RICHARD SCHULZ Date: 01/17/2024 11:31
--- OUTSIDE RECORDS SUMMARY | 2024-01-17 09:40 | XMS_ITS | CCD ---
Author Organization [facility] Care Team Providers Care Driveway Sealer Name Role Phone ANEUDY, DR OSPINA Admitting [...] Dee Buchanan Admitting Unavailable Dee Buchanan Unavailable Verito Lamb MD Primary Care Provider [phone] MARLENE PLASENCIA Attending Unavailable MARLENE PLASENCIA Attending Unavailable MARLENE PLASENCIA Attending Unavailable MARLENE PLASENCIA Attending Unavailable SANGEETHA GRAY Attending Unavailable AMANDA MARTINEZ Attending Unavailable ANAI AMADO Attending Unavailable ANAI AMADO Attending Unavailable MARLENE PLASENCIA Attending Unavailable AMANDA MARTINEZ Attending Unavailable Allergies Allergy Classification Reported Allergen(s) Allergy Type Date of Onset Reaction(s) Facility (1 source) Cephalexin Drug Allergy [facility] Repository (3 sources) ARIPiprazole Drug Allergy 3 [facility] Healthcare Work Phone: (3 sources) cariprazine Drug Allergy 3 [facility] (3 sources) Cephalexin Drug Allergy 3 Unknown [facility] Healthcare (3 sources) Propofol Drug Allergy 3 Unknown [facility] Healthcare (3 sources) Flavoring Agent Allergy to substance 3 Unknown [facility] Healthcare (3 sources) Mosquito (Diagnostic) Drug Allergy 3 Unknown [facility] Healthcare Medications Current Medications Medication Drug Class(es) Dates Sig (Normalized) Sig (Original) buPROPion hydrochloride 100 mg oral tablet (1 source) Aminoketone take 1 tablet by mouth every twelve hours buPROPion HCl 100 MG 1 tablet Orally Twice a day Active busPIRone hydrochloride 15 mg oral tablet (3 sources) Start: 11-23-2023 take 1 tablet by mouth once daily busPIRone (Buspar) 15 MG tablet Indications: Generalized anxiety disorder (CMS/HCC) Take 1 tablet (15 mg) by mouth Daily 11/23/2023 Active cetirizine hydrochloride 10 mg oral tablet (3 sources) Histamine-1 Receptor Antagonist take 1 tablet by mouth once daily cetirizine (ZyrTEC) 10 MG tablet Take 10 mg by mouth Daily Active fluticasone propionate 0.05 mg/actuat metered dose nasal spray (3 sources) Corticosteroid take 1 spray(s) nasal route once daily as needed fluticasone (Flonase) 50 MCG/ACT nasal spray Administer 1 spray into each nostril Daily Shake gently. Before first use, prime pump. After use, clean tip and replace cap. PRN Active MV & Min w/FA-DHA ([facility] PO) (3 sources) take 1 tablet by mouth once daily MV & Min w/FA-DHA ([facility] PO) Take 1 tablet by mouth 1 (one) time each day Active 24 hr venlafaxine 37.5 mg extended release oral capsule (3 sources) Serotonin and Norepinephrine Reuptake Inhibitor Start: 11-23-2023 End: 11-22-2024 take 1 capsule by mouth once daily venlafaxine XR (Effexor XR) 37.5 MG 24 hr capsule Indications: Mood disorder (CMS/HCC) Take 1 capsule (37.5 mg) by mouth Daily Do not crush or chew. 30 capsule 11 11/23/2023 11/22/2024 Active Completed/Discontinued Medications Medication Drug Class(es) Dates Sig (Normalized) Sig (Original) triamcinolone acetonide 40 mg/ml injectable suspension (1 source) Corticosteroid Start: 05-11-2022 Kenalog-40 Apr, 20 mg Problems Active Problems Problem Classification Problem Date Documented Date Episodic/Chronic Allergic reactions (3 sources) Atopic dermatitis; Translations: [Atopic dermatitis, unspecified] Onset: 08-18-2022 08-18-2022 Chronic Anxiety disorders (3 sources) Generalized anxiety disorder; Translations: [Generalized anxiety disorder] Onset: 03-23-2023 03-23-2023 Chronic Esophageal disorders (3 sources) Gastroesophageal reflux disease without esophagitis; Translations: [Gastro-esophageal reflux disease without esophagitis] Onset: 08-18-2022 08-18-2022 Chronic Immunizations and screening for infectious disease (1 source) Encounter for screening for human papillomavirus (HPV); Translations: [ENC SCREENING HUMAN PAPILLOMAVIRUS] Onset: 08-13-2021 Episodic Mood disorders (3 sources) Moderately severe depression; Translations: [Moderately severe depression] Onset: 08-18-2022 08-18-2022 Chronic Other connective tissue disease (1 source) Ganglion, left wrist Episodic Other non-traumatic joint disorders (4 sources) Pain in right knee; Translations: [PAIN IN RIGHT KNEE] Onset: 07-17-2021 Episodic Other non-traumatic joint disorders (1 source) Pain in left knee; Translations: [PAIN IN LEFT KNEE] Onset: 07-22-2021 Episodic Other non-traumatic joint disorders (1 source) Pain in left wrist Episodic Other nutritional; endocrine; and metabolic disorders (3 sources) Body mass index 30+ - obesity; Translations: [Obesity, unspecified] Onset: 08-18-2022 08-18-2022 Chronic Other and delivery including normal (2 sources) Second trimester ; Translations: [Encounter for supervision of normal , unspecified, second trimester] 12-20-2023 Episodic Other screening for suspected conditions (not mental disorders or infectious disease) (6 sources) Encounter for screening for malignant neoplasm of cervix; Translations: [Patient encounter status] Onset: 08-10-2021 Episodic Other upper respiratory disease (3 sources) Seasonal allergic rhinitis; Translations: [Other seasonal allergic rhinitis] Onset: 08-18-2022 08-18-2022 Chronic Residual codes; unclassified (2 sources) Gestation period, 20 weeks; Translations: [20 weeks gestation of ] 12-20-2023 Episodic Unclassified (1 source) Pain in left wrist; Translations: [Pain in left wrist] Onset: 05-11-2022 Viral infection (1 source) COVID-19; Translations: [COVID-19] Onset: 12-17-2020 Past or Other Problems Problem Classification Problem Date Documented Da te Episodic/Chronic Nausea and vomiting (4 sources) Nausea with vomiting, unspecified; Translations: [NAUSEA WITH VOMITING UNSPECIFIED] Onset: 12-08-2020 Episodic Other connective tissue disease (3 sources) Ganglion cyst of left dorsal wrist; Translations: [Ganglion, left wrist] Onset: 08-18-2022 08-18-2022 Episodic Other lower respiratory disease (3 sources) Cough; Translations: [COUGH] Onset: 12-03-2020 Episodic Other upper respiratory disease (3 sources) Allergic rhinitis; Translations: [Allergic rhinitis, unspecified] Onset: 08-18-2022 Resolved: 01-05-2023 01-05-2023 Chronic Other upper respiratory infections (3 sources) Sinusitis; Translations: [Chronic sinusitis, unspecified] Onset: 08-18-2022 Resolved: 01-05-2023 01-05-2023 Chronic Otitis media and related conditions (6 sources) Dysfunction of eustachian tube; Translations: [Unspecified Eustachian tube disorder, unspecified ear] Onset: 08-18-2022 08-18-2022 Episodic Viral infection (3 sources) COVID-19; Translations: [Other specified viral infection] Onset: 08-18-2022 08-18-2022 Episodic Results Test Name Value Interpretation Reference Range Facility Urinalysis macro (dipstick) panel (U)on 12-20-2023 Bilirubin, UA Negative Negative - 4(70) +++ mg/dL [facility] Blood, UA Negative Negative - 50 Neno/mcL [facility] Clarity, UA Clear [facility] Color, UA Yellow [facility] Glucose, UA Negative Negative - 2000(110) ++++ mg/dL [facility] Interpretation and review of laboratory results Abnormal [facility] Ketones, UA Negative Negative - 160(16) ++++ mg/dL [facility] Leukocytes, UA Trace Negative - 500+++ Virgie/mcL [facility] Nitrite, UA Negative Negative - Positive [facility] pH, UA 6.5 5 - 9 [facility] Healthcar e Protein, UA Negative Negative - 2000(20) ++++ mg/dL [facility] Spec Grav, UA 1.025 1 - 1.03 [facility] care Urobilinogen, UA 0.2 0.2 - 12 mg/dL [facility] XR wrist LT min 3V*on 2022 XR wrist LT min 3V* [place] [address] XRay Report Signed Patient: Nazia Harper MR#: [id number] 67 : 1995 Acct:[id number] Age/Sex: 26 / F ADM Date: 05/11/22 Loc: [facility] [place]: Type: [facility] Attending Dr: Dee Buchanan MD Copies [...] Travis Jr., D.OJuanis05/11/2022 12:18 PM Dictation Location: [place] [address] Transcribed By: [facility] 05/11/22 1218 Dictated By: Tan Travis Jr, DO 05/11/22 1217 Signed By: 05/11/22 1218 Normal [facility] XR wrist LT min 3V* [facility] [employer] Other XR wrist LT min 3V* [facility] [employer] Other XR wrist LT min 3V* [address] [place] [address] [employer] Other XR wrist LT min 3V* [address] [employer] Other XR wrist LT min 3V* XRay Report [employer] Other XR wrist LT min 3V* Signed [employer] Other XR wrist LT min 3V* Patient: Nazia Harper MR#: [id number] [employer] Other XR wrist LT min 3V* 67 [employer] Other XR wrist LT min 3V* : 1995 Acct:[id number] [employer] Other XR wrist LT min 3V* Age/Sex: 26 / F ADM Date: 05/11/22 [employer] Other XR wrist LT min 3V* Loc: [facility] Room: Type: [facility] [employer] Other XR wrist LT min 3V* Attending Dr: Dee Buchanan MD [employer] Other XR wrist LT min 3V* Copies to: Dee Buchanan MD [employer] Other XR wrist LT min 3V* Ordering Provider: Dee Buchanan MD [employer] Other XR wrist LT min 3V* Date of Service: 05/11/22 [employer] Other XR wrist LT min 3V* XR/XR wrist LT min 3V*: PAIN [employer] Other XR wrist LT min 3V* LEFT WRIST - 4 views [employer] Other XR wrist LT min 3V* CLINICAL HISTORY: Ganglion cyst posterior aspect at the level of the carpals. [employer] Other XR wrist LT min 3V* COMPARISON: None [employer] Other XR wrist LT min 3V* FINDINGS: [employer] Other XR wrist LT min 3V* No focal soft tissue abnormality is noted. No acute bony process is seen. Carpal bones appear [employer] Other XR wrist LT min 3V* unremarkable. [employer] Other XR wrist LT min 3V* XR/XR wrist LT min 3V* [employer] Other XR wrist LT min 3V* IMPRESSION: [employer] Other XR wrist LT min 3V* NO ACUTE BONY PROCESS. [employer] Other XR wrist LT min 3V* Impression dictated by: Tan Travis Jr., D.O.05/11/2022 12:18 PM [employer] Other XR wrist LT min 3V* Dictation Location: [place] [address] [employer] Other XR wrist LT min 3V* Transcribed By: PWS 05/11/22 [facility] [employer] Other XR wrist LT min 3V* Dictated By: Tan Travis Jr, DO 05/11/22 [facility] [employer] Other XR wrist LT min 3V* Signed By: [employer] Other XR wrist LT min 3V* 05/11/22 [facility] [employer] Other PAP ACOG PANEL 2: 21 to 29on 08-15-2021 . . Normal [facility] Comment on above: Result Comment: Perf ormed at: BA Performed By: #### [id number] #### [facility] [address] [place] [address] [address] Alek Fu Age Gdln ACOG Testing - Normal [facility] Comment on above: Performed By: #### [id number] #### [facility] [address] [place] [address] [address] Alek Fu DIAGNOSIS: Comment Normal [facility] Comment on above: Result Comment: NEGA TIVE FOR INTRAEPITHELIAL LESION OR MALIGNANCY. Performed at: BA Performed By: #### [id number] #### [facility] [address] [place] [address] Dr. Alek uF Methodology: Comment [facility] Comment on above: Result Comment: This liquid based ThinPrep(R) pap test was screened with the use of an image guided system. Performed at: WB Performed By: #### [id number] #### [facility] [address] [place] [address] Dr. Alek Fu Note: Comment Normal [facility] Comment on above: Result Comment: The Pap smear is a screening test designed to aid in the detection of premalignant and malignant conditions of the uterine cervix. It is not a diagnostic procedure and should not be used as the sole means of detecting cervical cancer. Both false-positive and false-negative reports do occur. . Performed at: WB Performed By: #### [id number] #### [facility] [address] [place] [address] Dr. Alek Fu Performed by: Comment Normal [facility] Comment on above: Result Comment: Elen Carrillo, [employer] (ASCP) Performed at: BA Performed By: #### [id number] #### [facility] [address] [place] [address] Dr. Alek Fu Reflex Criteria: Comment [facility] Comment on above: Result Comment: The HPV DNA reflex criteria were not met with this specimen result therefore, no HPV testing was performed. . Performed at: BA Performed By: #### [id number] #### [facility] [address] [place] [address] Dr. Alek Fu Specimen adequacy: Comment Normal [facility] Comment on above: Result Comment: Sati sfactory for evaluation. Endocervical and/or squamous metaplastic cells (endocervical component) are present. Performed at: BA Performed By: #### [id number] #### [facility] [address] [place] [address] Dr. Alek Fu XR KNEE SABRINA 4V [...] ZURI [place] Date: 2021-07-17 17:09 Normal [facility] CBC AUTO DIFFon 12-08-2020 BASO # 0.0 103/ul Normal 0.0-0.1 [facility] Comment on above: Performed By: #### C BC #### [facility] [address] [place] [address] Dr. Alek Fu Basophils/100 WBC (Bld) 0.2 % Normal 0.2-2.0 [facility] Comment on above: Performed By: #### C BC #### [facility] [address] [place] [address] Dr. Alek Fu EO # 0.0 103/ul Normal 0.0-0.7 [facility] Comment on above: Performed By: #### C BC #### [facility] [address] [place] [address] Dr. Alek Fu Eosinophils/100 WBC (Bld) 0.6 % Critically low 0.9-7.0 [facility] Comment on above: Performed By: #### C BC #### [facility] [address] [place] [address] Dr. Alek Fu Erythrocyte distribution width (RBC) [Ratio] 12.4 % Normal 11.0-15.0 [facility] Comment on above: Performed By: #### C BC #### [facility] [address] [place] [address] Dr. Alek Fu Hematocrit (Bld) [Volume fraction] 44.3 % Normal 36.0-48.0 [facility] Comment on above: Performed By: #### C BC #### [facility] [address] [place] [address] Dr. Alek Fu Hemoglobin (Bld) [Mass/Vol] 15.4 g/dL Normal 12.0-16.0 [facility] Comment on above: Performed By: #### C BC #### [facility] [address] [place] [address] [address] Alek Fu IG # 0.04 10e3/ul Critically high 0.00-0.03 [facility] Comment on above: Performed By: #### C BC #### [facility] [address] [place] [address] Dr. Alek Fu IG % 0.6 % Critically high 0.0-0.5 [facility] Comment on above: Performed By: #### C BC #### [facility] [address] [place] [address] Dr. Alek Fu LYMPH # 3.2 103/ul Normal 1.2-3.8 [facility] Comment on above: Performed By: #### C BC #### [facility] [address] [place] [address] Dr. Alek Fu Lymphocytes/100 WBC (Bld) 50.2 % Normal 20.5-60.0 [facility] Comment on above: Performed By: #### C BC #### [facility] [address] [place] [address] Dr. Alek Fu MANUAL DIFF REQ NO Normal [facility] Comment on above: Performed By: #### C BC #### [facility] [address] [place] [address] Dr. Alek Fu MCH (RBC) [Entitic mass] 28.7 pg Normal 26.7-34.0 [facility] Comment on above: Performed By: #### C BC #### [facility] [address] [place] [address] Dr. Alek Fu MCHC (RBC) [Mass/Vol] 34.8 g/dL Normal 29.9-35.2 [facility] Comment on above: Performed By: #### C BC #### [facility] [address] [place] [address] Dr. Alek Fu MCV (RBC) [Entitic vol] 82.5 fL Normal 81.0-99.0 [facility] Comment on above: Performed By: #### C BC #### [facility] [address] [place] [address] Dr. Alek Fu MONO # 0.6 103/ul Normal 0.3-0.8 [facility] Comment on above: Performed By: #### C BC #### [facility] [address] [place] [address] Dr. Alek Fu Monocytes/100 WBC (Bld) 10.0 % Normal 1.7-12.0 [facility] Comment on above: Performed By: #### C BC #### [facility] [address] [place] [address] Dr. Alek Fu NEUT # 2.4 103/ul Normal 1.4-6.5 [facility] Comment on above: Performed By: #### C BC #### [facility] [address] [place] [address] Dr. Alek Fu Neutrophils/100 WBC (Bld) 38.4 % Critically low 43.0-75.0 [facility] Comment on above: Performed By: #### C BC #### [facility] [address] [place] [address] Dr. Alek Fu Platelet mean volume (Bld) [Entitic vol] 9.9 fL Normal 9.5-13.5 [facility] Comment on above: Performed By: #### C BC #### [facility] [address] [place] [address] Dr. Alek Fu PLT 206 103/ul Normal 150-450 [facility] Comment on above: Performed By: #### C BC #### [facility] [address] [place] [address] Dr. Alek Fu RBC 5.37 106/ul Normal 4.20-5.40 [facility] Comment on above: Performed By: #### C BC #### [facility] [address] [place] [address] Dr. Alek Fu WBC 6.3 103/ul Normal 4.0-11.0 [facility] Comment on above: Performed By: #### C BC #### [facility] [address] [place] [address] Dr. Alek Fu ER URINE PROFILEon 1 Bilirubin Ql (U) Negative Normal NEGATIVE [facility] Comment on above: Performed By: #### E RUR #### [facility] [address] [place] [address] Dr. Alek Fu Clarity (U) CLEAR Normal CLEAR [facility] Comment on above: Performed By: #### E RUR #### [facility] [address] [place] [address] Dr. Alek Fu Color (U) YELLOW Normal YELLOW [facility] Comment on above: Performed By: #### E RUR #### [facility] [address] [place] [address] Dr. Alek WOOD A micrscopic examination will be performed if indicated. Normal [facility] Comment on above: Performed By: #### E RUR #### [facility] [address] [place] [address] Dr. Alek Fu Glucose Ql (U) Negative Normal NEGATIVE [facility] Comment on above: Performed By: #### E RUR #### [facility] [address] [place] [address] Dr. Alek Fu Hemoglobin Ql (U) TRACE-INTACT Abnormal NEGATIVE [facility] Comment on above: Performed By: #### E RUR #### [facility] [address] [place] [address] Dr. Alek Fu Ketones Ql (U) TRACE Abnormal NEGATIVE [facility] Comment on above: Performed By: #### E RUR #### [facility] [address] [place] [address] Dr. Alek Fu LEUKOCYTES Negative Normal NEGATIVE [facility] Comment on above: Performed By: #### E RUR #### [facility] [address] [place] [address] Dr. Alek Fu Nitrite Ql (U) Negative Normal NEGATIVE [facility] Comment on above: Performed By: #### E RUR #### [facility] [address] [place] [address] Dr. Alek Fu pH (U) 6.0 [pH] Normal 5-9 [facility] Comment on above: Performed By: #### E RUR #### [facility] [address] [place] [address] Dr. Alek Fu SPEC GRAVITY 1.015 Normal 1.005-<=1.025 [facility] Comment on above: Performed By: #### E RUR #### [facility] [address] [place] [address] [address] Alek Fu UA PROTEIN Negative Normal NEGATIVE/ TRACE [facility] Comment on above: Performed By: #### E RUR #### [facility] [address] [place] [address] [address] Alek Fu UR MICRO IND NOT INDICATED Normal [facility] Comment on above: Performed By: #### E RUR #### [facility] [address] [place] [address] Dr. Alek Fu Urobilinogen Qn (U) 0.2 {Roya'U}/dL Normal 0.2 - 1.0 [facility] Comment on above: Performed By: #### E RUR #### [facility] [address] [place] [address] Dr. Alek Fu URon 12-08-2020 , QUAL Negative Normal NEGATIVE [facility] Comment on above: Performed By: #### P REGU #### [facility] [address] [place] [address] Dr. Alek Fu PROF CHEM 8 (BAS METB)on Anion gap [Moles/Vol] 13.0 mmol/L Normal [facility] Comment on above: Performed By: #### B MP #### [facility] [address] [place] [address] Dr. Alek Fu Calcium [Mass/Vol] 9.0 mg/dL Normal 8.4-10.2 [facility] Comment on above: Performed By: #### B MP #### [facility] [address] [place] [address] Dr. Alek Fu Chloride [Moles/Vol] 103 mmol/L Normal 98-107 [facility] Comment on above: Performed By: #### B MP #### [facility] [address] [place] [address] [address] Alek Fu CO2 [Moles/Vol] 25.0 mmol/L Normal 22.0-30.0 [facility] Comment on above: Performed By: #### B MP #### [facility] [address] [place] [address] [address] Alek Fu Creatinine [Mass/Vol] 0.96 mg/dL Normal 0.52-1.04 [facility] Comment on above: Performed By: #### B MP #### [facility] [address] [place] [address] [address] Alek Fu EGFR-AF MONTENEGRIN >60 Normal >=60 [facility] Comment on above: Performed By: #### B MP #### [facility] [address] [place] [address] [address] Alek Fu EGFR-NON AF MONTENEGRIN >60 Normal >=60 [facility] Comment on above: Performed By: #### B MP #### [facility] [address] [place] [address] [address] Alek Fu Glucose [Mass/Vol] 99 mg/dL Normal 74-106 [facility] Comment on above: Performed By: #### B MP #### [facility] [address] [place] [address] [address] Alek Fu Potassium [Moles/Vol] 3.0 mmol/L Critically low 3.4-5.0 [facility] Comment on above: Performed By: #### B MP #### [facility] [address] [address] [address] Alek Fu Sodium [Moles/Vol] 138 mmol/L Normal 137-145 [facility] Comment on above: Performed By: #### B MP #### [facility] [address] [address] [address] Alek Fu Urea nitrogen [Mass/Vol] 11.0 mg/dL Normal 7.0-17.0 [facility] Comment on above: Performed By: #### B MP #### [facility] [address] [place], [place] [address] Dr. Alek Fu Urea nitrogen/Creatinin e [Mass ratio] 11.5 mg/mg Normal [facility] Comment on above: Performed By: #### B MP #### [facility] [address] [place], [place] [address] Dr. Alek Fu Covid-19 PCR ([facility])on 11-19 SARS-CoV-2 (COVID-19) RNA SANTANA+probe Ql (Unsp spec) Detected Critically abnormal NOT DETECTED [facility] Comment on above: Result Comment: This test is not yet approved or cleared by the [place] FDA. When there are no FDA-approved or cleared tests available, and other criteria are met, FDA can make tests available under an emergency access mechanism called an Emergency Use Authorization (EUA). The EUA for this test is supported by the [employer] of Health and Human Service's (HHS's) declaration [...] longer be used). Performed By: #### [facility] #### [facility] [address] [place], [place] [address] Dr. Alek Fu Vital Signs Date Time Vital Sign Value Performing Clinician Faci lity 12-20-2023 09:58-0400 Body mass index (BMI) [Ratio] 34.93 kg/m2 Amanda ROMAN Work Phone: [facility] 12-20-2023 09:58-0400 Body weight 86.64 kg Amanda ROMAN Work Phone: [facility] 12-20-2023 09:58-0400 Diastolic blood pressure 76 mm[Hg] Amanda ROMAN Work Phone: [facility] 12-20-2023 09:58-0400 Systolic blood pressure 124 mm[Hg] Amanda ROMAN Work Phone: [facility] Encounters Encounter Date Encounter Type Care Provider Facility Start: 12-20-2023 End: 12-20-2023 Bamboo flowsheet Amanda ROMAN Work Phone: [facility] Start: 12-20-2023 End: 12-20-2023 Bamboo flowsheet Amanda ROMAN Work Phone: [facility] Start: 12-20-2023 End: 12-20-2023 flow sheet Amanda ROMAN Work Phone: [facility] Comment on above: Encounter for follow -up ultrasound of anatomy; Second trimester ; 20 weeks gestation of Start: 12-20-2023 End: 12-20-2023 ambulatory AMANDA MARTINEZ Not Available Start: 11-23-2023 End: 11-23-2023 ambulatory MARLENE M HEMMER Not Available Start: 11-22-2023 End: 11-22-2023 ambulatory ANAI ANEUDY Not Available Start: 10-24-2023 End: 10-24-2023 ambulatory ANAI ANEUDY Not Available Start: 10-11-2023 End: 10-11-2023 ambulatory AMANDA JUAN Not Available Start: 09-29-2023 End: 09-29-2023 ambulatory MARLENE HEMMER Not Available Start: 09-08-2023 End: 09-08-2023 ambulatory SANGEETHA M ISAAC Not Available Start: 07-26-2023 End: 07-26-2023 ambulatory MARLENE M HEMMER Not Available Start: 06-16-2023 End: 06-16-2023 ambulatory MARLENE M HEMMER Not Available Start: 03-23-2023 End: 03-23-2023 ambulatory MARLENE M HEMMER Not Available Start: 02-15-2023 End: 02-15-2023 ambulatory MARLENE M HEMMER Not Available Start: 05-11-2022 Office outpatient ne w 45 minutes [facility] Start: 05-11-2022 End: 05-11-2022 ambulatory Dee Buchanan Facility:[facility] Start: 05-11-2022 End: 05-11-2022 ambulatory MD Dee Buchanan Work Phone: [facility] Work Phone: Start: 05-11-2022 End: 05-11-2022 Patient encounter procedure MD Dee Buchanan Work Phone: [facility] Start: 08-10-2021 End: 08-10-[address] ANAI AMADO Facility:[facility] Start: 07-17-2021 End: 07-18-[address] MARLENE PLASENCIA Facility:[facility] Start: 12-08-2020 End: 12-08-[address] VERITO LAMB Facility:[facility] Start: 12-03-2020 End: 12-03-[address] VERITO LAMB Facility:[facility] Procedures Date Procedure Procedure Detail Performing Clinician Start: 12-20-2023 Urnls dip stick/tabl et rgnt non-auto w/o micrscp Amanda ROMAN Work Phone: Start: 05-11-2022 Plain X-ray of left wrist MD Dee Buchanan Work Phone: Plan of Treatment Date Care Activity Detail Author Start: 01-20-2024 End: 12-19-2024 US for US OB INCOMPLETE ANATOMY W US OB TRANSVAGINAL Imaging Routine Encounter for follow-up ultrasound of anatomy Expected: 01/20/2024 (Approximate), Expires: 12/19/2024 [facility] Work Phone: Comment on above: Expected: 01/20/2024 (Approximate), Expires: 12/19/2024 Start: 01-17-2024 End: 01-17-2024 Patient encounter procedure 01/17/2024 10:00 AM EDT Routine [facility] [address] [place] [id number] Amanda Martinez PA [address] [place] [address] [facility] Start: 01-17-2024 End: 01-17-2024 Professional / ancillary services management 01/17/2024 9:30 AM EDT Ancillary Procedure [facility] [address] [place] [id number] [facility] Start: 12-20-2023 End: 12-20-2023 Patient encounter procedure 12/20/2023 9:30 AM EDT Routine [facility] [address] [place] [id number] Amanda Martinez PA [address] [place] [address] Arrived [facility] Comment on above: Arrived Start: 11-20-2023 Influenza vaccination Influenza Vacc ine (#1) [facility] Immunizations Immunization Date Immunization Notes Care Provider Fa cility 12-09-2019 diphtheria, tetanus toxoids and pertussis vaccine Amanda ROMAN Work Phone: [facility] 12-09-2019 measles, mumps and rubella virus vaccine Amanda ROMAN Work Phone: [facility] 05-30-2000 diphtheria, tetanus toxoids and acellular pertussis vaccine, unspecified formulation Amadna ROMAN Work Phone: [facility] Work Phone: 05-30-2000 measles, mumps and rubella virus vaccine Amanda ROMAN Work Phone: [facility] 05-30-2000 poliovirus vaccine, inactivated Amanda ROMAN Work Phone: [facility] 03-30-2000 influenza, seasonal, injectable Amanda ROMAN Work Phone: [facility] 03-30-2000 influenza virus vaccine, unspecified formulation Amanda ROMAN Work Phone: [facility] 09-12-1998 haemophilus influenz ae type b vaccine, conjugate unspecified formulation Amanda ROMAN Work Phone: [facility] 11-28-1996 diphtheria, tetanus toxoids and acellular pertussis vaccine, unspecified formulation Amanda ROMAN Work Phone: [facility] 11-28-1996 haemophilus influenz ae type b vaccine, conjugate unspecified formulation Amanda ROMAN Work Phone: [facility] 11-28-1996 measles, mumps and rubella virus vaccine Amanda ROMAN Work Phone: [facility] 10-27-1996 trivalent poliovirus vaccine, live, oral Amanda ROMAN Work Phone: [facility] 01-31-1996 DTP-Haemophilus influenzae type b conjugate vaccine Amanda ROMAN Work Phone: [facility] 01-31-1996 hepatitis B vaccine, pediatric or pediatric/adolescent dosage Amanda ROMAN Work Phone: [facility] 01-31-1996 trivalent poliovirus vaccine, live, oral Amanda ORMAN Work Phone: [facility] 1995 DTP-Haemophilus influenzae type b conjugate vaccine Amanda ROMAN Work Phone: [facility] 1995 trivalent poliovirus vaccine, live, oral Amanda ROMAN Work Phone: [facility] 1995 DTP-Haemophilus influenzae type b conjugate vaccine Amanda ROMAN Work Phone: [facility] 1995 hepatitis B vaccine, pediatric or pediatric/adolescent dosage Amanda ROMAN Work Phone: [facility] 1995 haemophilus influenz ae type b vaccine, conjugate unspecified formulation Amanda ROMAN Work Phone: [facility] 1995 hepatitis B vaccine, pediatric or pediatric/adolescent dosage Amanda ROMAN Work Phone: [facility] Payers Date Payer Category Payer [facility] (unspecified) AETNA AETNA [id number] 2023-Present [address] [place] [address] [facility] [id number] 2023 Private Health Insurance [id number] 2022 Private Health Insurance [id number] 2022 Self-pay 2022 Unknown [id number] 1995 Unknown [id number] .593 1995 Unknown [id number] [id number] .593 1995 Unknown [id number] 2.16.840.1.450306.3.579.2 .593 1995 Unknown [id number] 2.16.840.1.992305.3.579.2 .593 1995 Unknown [id number] 2.16.840.1.540487.3.579.2 .1259 1995 Unknown [id number] 2.16.840.1.314806.3.579.2 .1259 1995 Unknown [id number] 2.16.840.1.293196.3.579.2 .1259 1995 Unknown [id number] 2.16.840.1.491861.3.579.2 .125 1995 Unknown [id number] 2.16.840.1.620115.3.579.2 .9 1995 Unknown [id number] 2.16.840.1.429831.3.579.2 .1259 1995 Unknown [id number] 2.16.840.1.536134.3.579.2 .1259 1995 Unknown [id number] 2.16.840.1.567459.3.579.2 .1258 1995 Unknown [id number] 2.16.840.1.380246.3.579.2 .1259 1995 Unknown [id number] 2.16.840.1.701060.3.579.2 .1258 1995 Unknown [id number] 2.16.840.1.414005.3.579.2 .1259 1959 Unknown [id number] 1959 Unknown [id number] 1959 Unknown [id number] Unknown [id number] [id number] .531 Social History Date Type Detail Facility Tobacco smoking stat us OKIS Unknown if ever smoked [facility] Work Phone: Start: 1995 Sex Assigned At Female [facility] Start: 09-08-2023 End: 11-23-2023 Sex Assigned At [facility] Start: 11-24-2022 Tobacco smoking status NHIS Never smoked tobacco [facility] Start: 11-24-2022 Tobacco use and exposure Smokeless tobacco non-user [facility] Start: 11-23-2023 Alcoholic beverage intake Ex-drinker (finding) [facility] Start: 09-08-2023 End: 11-23-2023 Alcoholic beverage intake [facility] How often do you nee d to have someone help you when you read instructions, pamphlets, or other written material from your doctor or pharmacy [SILS] Never [facility] Do you belong to any clubs or organizations such as alevism groups, unions, fraternal or athletic groups, or school groups? No [facility] Are you now , , , , never or living with a partner? [facility] How often to you hav e a drink containing alcohol? Monthly or less [facility] How many standard dr inks containing alcohol do you have on a typical day? 1 or 2 [facility] How often do you hav e 6 or more drinks on 1 occasion? Less than monthly [facility] How hard is it for y ou to pay for the very basics like food, housing, medical care, and heating Not very hard [facility] Do you feel stress - tense, restless, nervous, or anxious, or unable to sleep at night because your mind is troubled all the time - these days [OSQ] Rather much [facility] Start: 08-17-2022 Alcohol Comment Caffeine intake: 1-2 cups per day [facility] Start: 08-10-2023 [facility] Start: 10-18-2022 Gender identity Identifies as female gender (finding) [facility] Start: 10-18-2022 Sexual orientation Heterosexual (finding) [facility] History of Present illness Narrative 12-20-2023 ABEL Carroll - 12/20/2023 9:30 AM EDT Note Date & Type Note Facility 12-20-2023 History of Presen t illness Narrative Reason for Appointment: Patient ID: Nazia Ruiz is a 28 y.o. female who presents for Routine Visit Patient presents today for Return OB appointment. MEDICATIONS Current Outpatient Medications Medication Instructions busPIRone (BUSPAR) 15 mg, Oral, Daily cetirizine (ZYRTEC) 10 mg, Oral, Daily fluticasone (Flonase) 50 MCG/ACT nasal spray 1 spray, Each Nostril, Daily, Shake gently. Before first use, prime pump. After use, clean tip and replace cap. PRN MV & Min w/FA-DHA ([facility] G[facility] PO) 1 tablet, Oral, Daily venlafaxine XR (EFFEXOR XR) 37.5 mg, Oral, Daily, Do not crush or chew. ALLERGIES Allergies Allergen Reactions Abilify [Aripiprazole] Vision disturbance Cephalexin Unknown Flavoring Agent Unknown Mosquito (Diagnostic) Unknown Propofol Unknown Vraylar [Cariprazine] QUACH, blurry vision, fatigue PROBLEMS Active Ambulatory Problems Diagnosis Date Noted Atopic dermatitis, unspecified 08/18/2022 Eustachian tube dysfunction 08/18/2022 Ganglion cyst of dorsum of left wrist 08/18/2022 Gastroesophageal reflux disease without esophagitis 08/18/2022 Moderately severe depression (CMS/HCC) 08/18/2022 Obesity (BMI 30-39.9) 08/18/2022 Otosclerosis 08/18/2022 Seasonal allergic rhinitis 08/18/2022 Severe acute respiratory syndrome coronavirus 2 (SARS-CoV-2) detected 08/18/2022 Generalized anxiety disorder (CMS/HCC) 03/23/2023 Resolved Ambulatory Problems Diagnosis Date Noted Allergic rhinitis 08/18/2022 Sinusitis 08/18/2022 Past Medical History: Diagnosis Date Allergies Central auditory processing disorder Chronic ear infection Depression (CMS/HCC) ETD (eustachian tube dysfunction) Miscarriage TMJ (dislocation of temporomandibular joint) HISTORY PAST MEDICAL HISTORY SOCIAL HISTORY Past Medical History: Diagnosis Date Allergies Central auditory processing disorder Chronic ear infection Depression (CMS/HCC) ETD (eustachian tube dysfunction) Ganglion cyst of dorsum of left wrist Gastroesophageal reflux disease without esophagitis Miscarriage 10/2022 Otosclerosis TMJ (dislocation of temporomandibular joint) Social History Tobacco Use Smoking status: Never Smokeless tobacco: Never Vaping Use Vaping status: Never Used Substance Use Topics Alcohol use: Not Currently Alcohol/week: 2.0 standard drinks of alcohol Types: 2 Standard drinks or equivalent per week Comment: Caffeine intake: 1-2 cups per day Drug use: Never FAMILY HISTORY Family History Problem Relation Name Age of Onset Hypertension Mother Cervical cancer Mother Ovarian cancer Mother Hypertension Father Heart disease Father Schizophrenia Sister No Known Problems Brother SURGICAL HISTORY Past Surgical History: Procedure Laterality Date MYRINGOTOMY W/ TUBES 7 tubes placed in ears, [place] TONSILLECTOMY REVIEW OF SYSTEMS Review of Systems: Review of Systems Constitutional: Negative. HENT: Negative. Eyes: Negative. Respiratory: Negative. Cardiovascular: Negative. Gastrointestinal: Negative. Genitourinary: Negative. Musculoskeletal: Negative. Skin: Negative. Neurological: Negative. All other systems reviewed and are negative. Hematological: Negative. Endocrine: Negative. Allergic/Immunologic: Negative. OBJECTIVE Objective: Physical Exam Constitutional: Appearance: Normal appearance. She is normal weight. HENT: Head: Normocephalic. Cardiovascular: Rate and Rhythm: Normal rate. Pulses: Normal pulses. Pulmonary: Effort: Pulmonary effort is normal. Breath sounds: Normal breath sounds. Abdominal: Palpations: Abdomen is soft. Musculoskeletal: General: Normal range of motion. Neurological: General: No focal deficit present. Mental Status: She is alert and oriented to person, place, and time. Psychiatric: Mood and Affect: Mood normal. Behavior: Behavior normal. Thought Content: Thought content normal. Judgment: Judgment normal. Vitals and nursing note reviewed. Vitals: Estimated body mass index is 34.93 kg/m as calculated from the following: Height as of 11/23/23: 5' 2 . Weight as of this encounter: 191 lb. BP: 124/76 Patient's last menstrual period was 07/27/2023. ASSESSMENT & PLAN ICD-10-CM 1. Encounter for follow-up ultrasound of anatomy Z36.2 US OB INCOMPLETE ANATOMY W US OB TRANSVAGINAL 2. Second trimester Z34.92 POCT urinalysis dipstick manually resulted 3. 20 weeks gestation of Z3A.20 POCT urinalysis dipstick manually resulted Return OB: Patient presents today for a routine obstetrics appointment. Patient is currently 20w6d . Patient states she is doing well but has complaints of being tired due to current . Patient has verbalizes frequent movement. Orders Placed This Encounter Procedures US OB INCOMPLETE ANATOMY W US OB TRANSVAGINAL POCT urinalysis dipstick manually resulted Follow Up: Patient is to return to office in 4 week for routine OB appointment. Documented by ABEL Carroll on behalf of: ABEL Carroll documented in this encounter [facility] Evaluation note 05-11-2022 Note Date & Type [...] Instructed patient to wear brace for activities. [employer] Other Evaluation note Note Date & Type Note Facility Evaluation note No assessment information availa [facility] Work Phone: Evaluation note Note Date & Type Note Facility Evaluation note Diagnosis Encounter for follow-up ultrasound of anatomy Second trimester state, incidental 20 weeks gestation of documented in this encounter [facility] History general Narrative - Reported Note Date & Type Note Facility History general Narrative - Reported Type Medical History learning disability Surgical History tymponostomy x7 [employer] Other Summary Purpose Family History No Family History Records FoundNo Family History Records FoundNo Family History Records Found Advance Directives No Advanced Directives Records FoundNo Advanced Directives Records FoundNo Advanced Directives Records Found Additional Source Comments INFORMATION SOURCE (unrecogn ized section and content) DATE CREATED AUTHOR 09/12/2021 [facility] DATE CREATED AUTHOR AUTHOR'S ORGANIZ ATION 05/21/2022 [facility] DATE CREATED AUTHOR AUTHOR'S ORGANIZ ATION 12/21/[address] 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.] BE BASED ON THE PRIMARY CLINICAL RECORDS. [employer] provides no warranty or guarantee of the accuracy or completeness of information in this document.
== END 2024-01-17 09:35 | disposition home or self-care (01) ==
LOC: NOMS 09:34
PROVIDERS: PCP Family Medicine; Visit Provider Physician Assistant
DX: O44.42 Low lying placenta NOS or without hemorrhage, second trimester (principal); Z3A.24 24 weeks gestation of pregnancy
CPT/HCPCS: 76815; 76816; 76817

== ENCOUNTER 2024-01-25 10:20 | Outpatient (OUT) | payer OTHER, SELFPAY ==
--- OUTSIDE RECORDS SUMMARY | 2024-01-25 10:36 | XMS_ITS | CCD ---
Author Organization [facility] Care Team Providers Care Exhibit Builder Name Role Phone ANEUDY, DR OSPINA Admitting [...] MCKEON Attending Unavailable ABEL MARTINEZ Consulting Unavailable DYOLN MCKEON Consulting Unavailable MD Dee Buchanan Attending Provider [phone] Dee Buchanan Attending Unavailable Dee Buchanan Admitting Unavailable Dee Buchanan Unavailable Verito Lamb MD Primary Care Provider [phone] MARLENE PLASENCIA Attending Unavailable MARLENE PLASENCIA Attending Unavailable MARLENE PLASENCIA Attending Unavailable HEMMARLENE MANDEL Attending Unavailable SANGEETHA GRAY Attending Unavailable AMANDA MARTINEZ Attending Unavailable ANAI BURGER Attending Unavailable ANAI BURGER Attending Unavailable MARLENE PLASENCIA Attending Unavailable AMANDA MARTINEZ Attending Unavailable AMANDA MARTINEZ Attending Unavailable Allergies Allergy Classification Reported Allergen(s) Allergy Type Date of Onset Reaction(s) Facility (1 source) Cephalexin Drug Allergy [facility] Repository (6 sources) ARIPiprazole Drug Allergy 3 [facility] Work Phone: (6 sources) cariprazine Drug Allergy 3 [facility] (6 sources) Cephalexin Drug Allergy 3 Unknown [facility] (6 sources) Propofol Drug Allergy 3 Unknown [facility] (6 sources) Flavoring Agent Allergy to substance 3 Unknown [facility] (6 sources) Mosquito (Diagnostic) Drug Allergy 3 Unknown [facility] Medications Current Medications Medication Drug Class(es) Dates Sig (Normalized) Sig (Original) buPROPion hydrochloride 100 mg oral tablet (1 source) Aminoketone take 1 tablet by mouth every twelve hours buPROPion HCl 100 MG 1 tablet Orally Twice a day Active busPIRone hydrochloride 15 mg oral tablet (6 sources) Start: 11-23-2023 take 1 tablet by mouth once daily busPIRone (Buspar) 15 MG tablet Indications: Generalized anxiety disorder (CMS/HCC) Take 1 tablet (15 mg) by mouth Daily 11/23/2023 Active cetirizine hydrochloride 10 mg oral tablet (6 sources) Histamine-1 Receptor Antagonist take 1 tablet by mouth once daily cetirizine (ZyrTEC) 10 MG tablet Take 10 mg by mouth Daily Active fluticasone propionate 0.05 mg/actuat metered dose nasal spray (6 sources) Corticosteroid take 1 spray(s) nasal route once daily as needed fluticasone (Flonase) 50 MCG/ACT nasal spray Administer 1 spray into each nostril Daily Shake gently. Before first use, prime pump. After use, clean tip and replace cap. PRN Active MV & Min w/FA-DHA ([facility] PO) (6 sources) take 1 tablet by mouth once daily MV & Min w/FA-DHA ([facility] PO) Take 1 tablet by mouth 1 (one) time each day Active 24 hr venlafaxine 37.5 mg extended release oral capsule (6 sources) Serotonin and Norepinephrine Reuptake Inhibitor Start: [...] Problem Date Documented Date Episodic/Chronic Allergic reactions (6 sources) Atopic dermatitis; Translations: [Atopic dermatitis, unspecified] Onset: 08-18-2022 08-18-2022 Chronic Anxiety disorders (6 sources) Generalized anxiety disorder; Translations: [Generalized anxiety disorder] Onset: 03-23-2023 03-23-2023 Chronic Esophageal disorders (6 sources) Gastroesophageal reflux disease without esophagitis; Translations: [Gastro-esophageal reflux disease without esophagitis] Onset: 08-18-2022 08-18-2022 Chronic Immunizations and screening for infectious disease (1 source) Encounter for screening for human papillomavirus (HPV); Translations: [ENC SCREENING HUMAN PAPILLOMAVIRUS] Onset: 08-13-2021 Episodic Mood disorders (6 sources) Moderately severe depression; Translations: [Moderately severe [...] Episodic Other nutritional; endocrine; and metabolic disorders (6 sources) Body mass index 30+ - obesity; Translations: [Obesity, unspecified] Onset: 08-18-2022 08-18-2022 Chronic Other and delivery including normal (4 sources) Second trimester ; Translations: [Encounter for supervision of normal , unspecified, second trimester] 12-20-2023 Episodic Other screening for suspected conditions (not mental disorders or infectious disease) (8 sources) Encounter for screening for malignant neoplasm of cervix; Translations: [Patient encounter status] Onset: 08-10-2021 Episodic Other upper respiratory disease (6 sources) Seasonal allergic rhinitis; Translations: [Other seasonal allergic rhinitis] Onset: 08-18-2022 08-18-2022 Chronic Residual codes; unclassified (2 sources) Gestation period, 20 weeks; Translations: [20 weeks gestation of ] 12-20-2023 Episodic Residual codes; unclassified (2 sources) Gestation period, 24 weeks; Translations: [24 weeks gestation of ] 01-17-2024 Episodic Unclassified (1 source) Pain in left wrist; Translations: [Pain in left wrist] Onset: 05-11-2022 Viral infection (1 source) COVID-19; Translations: [COVID-19] Onset: 12-17-2020 Past or Other Problems Problem Classification Problem Date Documented Da te Episodic/Chronic Nausea and vomiting (4 sources) Nausea with vomiting, unspecified; Translations: [NAUSEA WITH VOMITING UNSPECIFIED] Onset: 12-08-2020 Episodic Other connective tissue disease (6 sources) Ganglion cyst of left dorsal wrist; Translations: [Ganglion, left wrist] Onset: 08-18-2022 08-18-2022 Episodic Other lower respiratory disease (3 sources) Cough; Translations: [COUGH] Onset: 12-03-2020 Episodic Other upper respiratory disease (6 sources) Allergic rhinitis; Translations: [Allergic rhinitis, unspecified] Onset: 08-18-2022 Resolved: 01-05-2023 01-05-2023 Chronic Other upper respiratory infections (6 sources) Sinusitis; Translations: [Chronic sinusitis, unspecified] Onset: 08-18-2022 Resolved: 01-05-2023 01-05-2023 Chronic Otitis media and related conditions (12 sources) Dysfunction of eustachian tube; Translations: [Unspecified Eustachian tube disorder, unspecified ear] Onset: 08-18-2022 08-18-2022 Episodic Viral infection (6 sources) COVID-19; Translations: [Other specified viral infection] Onset: 08-18-2022 08-18-2022 Episodic Results Test Name Value Interpretation Reference Range Facility Urinalysis macro (dipstick) panel (U)on 01-17-2024 Bilirubin, UA Negative Negative - 4(70) +++ mg/dL [facility] Blood, UA Negative Negative - 50 Neno/mcL [facility] Clarity, UA Clear [facility], [facility], [facility] Negative Negative - 2000(110) ++++ mg/dL [facility] Interpretation and review of laboratory results Abnormal [facility] Ketones, UA Negative Negative - 160(16) ++++ mg/dL [facility] Leukocytes, UA Trace Negative - 500+++ Virgie/mcL [facility] Nitrite, UA Negative Negative - Positive [facility] pH, UA 6 5 - 9 [facility] Protein, UA Negative Negative - 1999(20) ++++ mg/dL [facility] Spec Grav, UA 1.02 1 - 1.03 [facility] Urobilinogen, UA 1.0 0.2 - 12 mg/dL [facility] Urinalysis macro (dipstick) panel (U)on 12-20-2023 Bilirubin, UA Negative Negative - 4(70) +++ mg/dL [facility] Blood, UA Negative Negative - 50 Neno/mcL [facility] Clarity, UA Clear [facility] Color, UA Yellow [facility] Glucose, UA Negative Negative - 1999(110) ++++ mg/dL [facility] Interpretation and review of laboratory results Abnormal [facility] Ketones, UA Negative Negative - 160(16) ++++ mg/dL [facility] Leukocytes, UA Trace Negative - 500+++ Virgie/mcL [facility] Nitrite, UA Negative Negative - Positive [facility] pH, UA 6.5 5 - 9 [facility] Protein, UA Negative Negative - 1999(20) ++++ mg/dL [facility] Spec Grav, UA 1.025 1 - 1.03 [facility] care Urobilinogen, UA 0.2 0.2 - 12 mg/dL [facility] X[facility] wrist LT min 3V*on 2022 XR wrist LT min 3V* [facility] [place] [address] XRay Report Signed Patient: Nazia Harper MR#: [id number] 67 : 1995 Acct:[id number] Age/Sex: 26 / F ADM Date: 05/11/22 Loc: [facility] Room: Type: [facility] Attending Dr: Dee Buchanan MD Copies [...] Travis Jr., D.OJuanis05/11/2022 12:18 PM Dictation Location: [facility]- Transcribed By: [facility] 05/11/22 1218 Dictated By: Tan Travis Jr DO 05/11/22 1217 Signed By: 05/11/22 1218 Normal [facility] XR wrist LT min 3V* [facility] [employer] Other XR wrist LT min 3V* [facility] [employer] Other XR wrist LT min 3V* [address] [place] [address] [employer] Other XR wrist LT min 3V* [place] [address] [employer] Other XR wrist LT min 3V* XRay Report [employer] Other XR wrist LT min 3V* Signed [employer] Other XR wrist LT min 3V* Patient: Nazia Harper MR#: [id number] [employer] Other XR wrist LT min 3V* 67 [employer] Other XR wrist LT min 3V* : 1995 Acct:[id number] [employer] Other XR wrist LT min 3V* Age/Sex: 26 / F ADM Date: 05/11/22 [employer] Other XR wrist LT min 3V* Loc: [facility] Room: Type: [facility] [employer] Other XR wrist LT min 3V* Attending Dr: Dee Buchanan MD [employer] Other XR wrist LT min 3V* Copies to: Dee Buchanan MD [employer] Other XR wrist LT min 3V* Ordering Provider: Dee Buchanan MD [employer] Other XR wrist LT min 3V* Date of Service: 05/11/22 [employer] Other XR wrist LT min 3V* XR/XR wrist LT min 3V*: PAIN [employer] Other XR wrist LT min 3V* LEFT WRIST - 4 views [employer] Other XR wrist LT min 3V* CLINICAL HISTORY: Ganglion cyst posterior aspect at the level of the carpals. [employer] Other XR wrist LT min 3V* COMPARISON: None [employer] Other XR wrist LT min 3V* FINDINGS: [employer] Other XR wrist LT min 3V* No focal soft tissue abnormality is noted. No acute bony process is seen. Carpal bones appear [employer] Other XR wrist LT min 3V* unremarkable. [employer] Other XR wrist LT min 3V* XR/XR wrist LT min 3V* [employer] Other XR wrist LT min 3V* IMPRESSION: [employer] Other XR wrist LT min 3V* NO ACUTE BONY PROCESS. [employer] Other XR wrist LT min 3V* Impression dictated by: Tan Travis Jr. DSammie05/11/2022 12:18 PM [employer] Other XR wrist LT min 3V* Dictation Location: [place] [address] [employer] Other XR wrist LT min 3V* Transcribed By: JOSE ALEJANDRO 05/11/22 1218 [employer] Other XR wrist LT min 3V* Dictated By: Tan Travis Jr, DO 05/11/22 1217 [employer] Other XR wrist LT min 3V* Signed By: [employer] Other XR wrist LT min 3V* 05/11/22 121 [employer] Other PAP ACOG PANEL 2: 21 to 29on 08-15-2021 . . [facility] Comment on above: Result Comment: Perf ormed at: BA Performed By: #### [id number] #### [facility] [address] [place] [address] Dr. Alek Fu Age Gdln ACOG Testing [facility] Comment on above: Performed By: #### [id number] #### [facility] [address] [place] [address] Dr. Alek Fu DIAGNOSIS: Comment [facility] Comment on above: Result Comment: NEGA TIVE FOR INTRAEPITHELIAL LESION OR MALIGNANCY. Performed at: BA Performed By: #### [id number] #### [facility] [address] [place] [address] Dr. Alek Fu Methodology: Comment [facility] Comment on above: Result Comment: This liquid based ThinPrep(R) pap test was screened with the use of an image guided system. Performed at: WB Performed By: #### [id number] #### [facility] [address] [place] [address] Dr. Alek Fu Note: Comment [facility] Comment on above: Result Comment: The Pap smear is a screening test designed to aid in the detection of premalignant and malignant conditions of the uterine cervix. It is not a diagnostic procedure and should not be used as the sole means of detecting cervical cancer. Both false-positive and false-negative reports do occur. . Performed at: WB Performed By: #### [id number] #### [facility] [address] [place] [address] Dr. Alek Fu Performed by: Comment [facility] Comment on above: Result Comment: Elen Carrillo, Loan Operations Specialist (ASCP) Performed at: BA Performed By: #### [id number] #### [facility] [address] [place] [address] Dr. Alek Fu Reflex Criteria: Comment Normal [facility] Comment on above: Result Comment: The HPV DNA reflex criteria were not met with this specimen result therefore, no HPV testing was performed. . Performed at: BA Performed By: #### [id number] #### [facility] [address] [place] [address] Dr. Alek Fu Specimen adequacy: Comment Normal [facility] Comment on above: Result Comment: Sati sfactory for evaluation. Endocervical and/or squamous metaplastic cells (endocervical component) are present. Performed at: BA Performed By: #### [id number] #### [facility] [address] [place] [address] Dr. Alek Fu XR KNEE SABRINA 4V [...] by: ZURI PHOENIX Date: 2021-07-17 17:09 Normal [facility] CBC AUTO DIFFon 12-08-2020 BASO # 0.0 103/ul Normal 0.0-0.1 [facility] Comment on above: Performed By: #### C BC #### [facility] [address] [place] [address] Dr. Alek Fu Basophils/100 WBC (Bld) 0.2 % Normal 0.2-2.0 [facility] Comment on above: Performed By: #### C BC #### [facility] [address] [place] [address] Dr. Alek Fu EO # 0.0 103/ul Normal 0.0-0.7 [facility] Comment on above: Performed By: #### C BC #### [facility] [address] [address] [address] Alek Fu Eosinophils/100 WBC (Bld) 0.6 % Critically low 0.9-7.0 [facility] Comment on above: Performed By: #### C BC #### [facility] [address] [place] [address] Dr. Alek Fu Erythrocyte distribution width (RBC) [Ratio] 12.4 % Normal 11.0-15.0 [facility] Comment on above: Performed By: #### C BC #### [facility] [address] [place] [address] Dr. Alek Fu Hematocrit (Bld) [Volume fraction] 44.3 % Normal 36.0-48.0 [facility] Comment on above: Performed By: #### C BC #### [facility] [address] [place] [address] Dr. Alek Fu Hemoglobin (Bld) [Mass/Vol] 15.4 g/dL Normal 12.0-16.0 [facility] Comment on above: Performed By: #### C BC #### [facility] [address] [place] [address] Dr. Alek Fu IG # 0.04 10e3/ul Critically high 0.00-0.03 [facility] Comment on above: Performed By: #### C BC #### [facility] [address] [place] [address] Dr. Alek Fu IG % 0.6 % Critically high 0.0-0.5 [facility] Comment on above: Performed By: #### C BC #### [facility] [address] [place] [address] Dr. Alek Fu LYMPH # 3.2 103/ul Normal 1.2-3.8 [facility] Comment on above: Performed By: #### C BC #### [facility] [address] [place] [address] Dr. Alek Fu Lymphocytes/100 WBC (Bld) 50.2 % Normal 20.5-60.0 [facility] Comment on above: Performed By: #### C BC #### [facility] [address] [place] [address] Dr. Alek Fu MANUAL DIFF REQ NO Normal [facility] Comment on above: Performed By: #### C BC #### [facility] [address] [place] [address] Dr. Alek Fu MCH (RBC) [Entitic mass] 28.7 pg Normal 26.7-34.0 [facility] Comment on above: Performed By: #### C BC #### [facility] [address] [place] [address] Dr. Alek Fu MCHC (RBC) [Mass/Vol] 34.8 g/dL Normal 29.9-35.2 [facility] Comment on above: Performed By: #### C BC #### [facility] [address] [place] [address] Dr. Alek Fu MCV (RBC) [Entitic vol] 82.5 fL Normal 81.0-99.0 [facility] Comment on above: Performed By: #### C BC #### [facility] [address] [place] [address] Dr. Alek uF MONO # 0.6 103/ul Normal 0.3-0.8 [facility] Comment on above: Performed By: #### C BC #### [facility] [address] [place] [address] Dr. Alek Fu Monocytes/100 WBC (Bld) 10.0 % Normal 1.7-12.0 [facility] Comment on above: Performed By: #### C BC #### [facility] [address] [place] [address] Dr. Alek Fu NEUT # 2.4 103/ul Normal 1.4-6.5 [facility] Comment on above: Performed By: #### C BC #### [facility] [address] [place] [address] Dr. Alek Fu Neutrophils/100 WBC (Bld) 38.4 % Critically low 43.0-75.0 [facility] Comment on above: Performed By: #### C BC #### [facility] [address] [place] [address] Dr. Alek Fu Platelet mean volume (Bld) [Entitic vol] 9.9 fL Normal 9.5-13.5 [facility] Comment on above: Performed By: #### C BC #### [facility] [address] [place] [address] Dr. Alek Fu PLT 206 103/ul Normal 150-450 [facility] Comment on above: Performed By: #### C BC #### [facility] [address] [place] [address] Dr. Alek Fu RBC 5.37 106/ul Normal 4.20-5.40 [facility] Comment on above: Performed By: #### C BC #### [facility] [address] [place] [address] Dr. Alek Fu WBC 6.3 103/ul Normal 4.0-11.0 [facility] Comment on above: Performed By: #### C BC #### [facility] [address] [place] [address] Dr. Alek Fu ER URINE PROFILEon 1 Bilirubin Ql (U) Negative Normal NEGATIVE [facility] Comment on above: Performed By: #### E RUR #### [facility] [address] [place] [address] Dr. Alek Fu Clarity (U) CLEAR Normal CLEAR [facility] Comment on above: Performed By: #### E RUR #### [facility] [address] [place] [address] Dr. Alek Fu Color (U) YELLOW Normal YELLOW [facility] Comment on above: Performed By: #### E RUR #### [facility] [address] [place] [address] Dr. Alek Fu ERUAHNika A micrscopic examination will be performed if indicated. Normal [facility] Comment on above: Performed By: #### E RUR #### [facility] [address] [place] [address] Dr. Alek Fu Glucose Ql (U) Negative Normal NEGATIVE [facility] Comment on above: Performed By: #### E RUR #### [facility] [address] [place] [address] Dr. Alek Fu Hemoglobin Ql (U) TRACE-INTACT Abnormal NEGATIVE [facility] Comment on above: Performed By: #### E RUR #### [facility] [address] [place] [address] Dr. Alek Fu Ketones Ql (U) TRACE Abnormal NEGATIVE [facility] Comment on above: Performed By: #### E RUR #### [facility] [address] [place] [address] Dr. Alek Fu LEUKOCYTES Negative Normal NEGATIVE [facility] Comment on above: Performed By: #### E RUR #### [facility] [address] [place] [address] Dr. Alek Fu Nitrite Ql (U) Negative Normal NEGATIVE [facility] Comment on above: Performed By: #### E RUR #### [facility] [address] [place] [address] Dr. Alek Fu pH (U) 6.0 [pH] Normal 5-9 [facility] Comment on above: Performed By: #### E RUR #### [facility] [address] [place] [address] Dr. Alek Fu SPEC GRAVITY 1.015 Normal 1.005-<=1.025 [facility] Comment on above: Performed By: #### E RUR #### [facility] [address] [place] [address] Dr. Alek uF UA PROTEIN Negative Normal NEGATIVE/ TRACE [facility] Comment on above: Performed By: #### E RUR #### [facility] [address] [place] [address] Dr. Alek Fu UR MICRO IND NOT INDICATED Normal [facility] Comment on above: Performed By: #### E RUR #### [facility] [address] [place] [address] Dr. Alek Fu Urobilinogen Qn (U) 0.2 {Roya'U}/dL Normal 0.2 - 1.0 [facility] Comment on above: Performed By: #### E RUR #### [facility] [address] [place] [address] Dr. Alek Fu URon 12-08-2020 , QUAL Negative Normal NEGATIVE [facility] Comment on above: Performed By: #### P REGU #### [facility] [address] [place] [address] Dr. Alek Fu PROF CHEM 8 (BAS METB)on Anion gap [Moles/Vol] 13.0 mmol/L Normal [facility] Comment on above: Performed By: #### B MP #### [facility] [address] [place] [address] Dr. Alek Fu Calcium [Mass/Vol] 9.0 mg/dL Normal 8.4-10.2 [facility] Comment on above: Performed By: #### B MP #### [facility] [address] [place] [address] Dr. Alek Fu Chloride [Moles/Vol] 103 mmol/L Normal 98-107 [facility] Comment on above: Performed By: #### B MP #### [facility] [address] [place] [address] Dr. Alek Fu CO2 [Moles/Vol] 25.0 mmol/L Normal 22.0-30.0 [facility] Comment on above: Performed By: #### B MP #### [facility] [address] [place] [address] Dr. Alek Fu Creatinine [Mass/Vol] 0.96 mg/dL Normal 0.52-1.04 [facility] Comment on above: Performed By: #### B MP #### [facility] [address] [place] [address] Dr. Alek Fu EGFR-AF AUSTRALIAN >60 Normal >=60 [facility] Comment on above: Performed By: #### B MP #### [facility] [address] [place] [address] Dr. Alek Fu EGFR-NON AF AUSTRALIAN >60 Normal >=60 [facility] Comment on above: Performed By: #### B MP #### [facility] [address] [address] [address] Alek Fu Glucose [Mass/Vol] 99 mg/dL Normal 74-106 [facility] Comment on above: Performed By: #### B MP #### [facility] [address] [address] [address] Alek Fu Potassium [Moles/Vol] 3.0 mmol/L Critically low 3.4-5.0 [facility] Comment on above: Performed By: #### B MP #### [facility] [address] [address] [address] Alek Fu Sodium [Moles/Vol] 138 mmol/L Normal 137-145 [facility] Comment on above: Performed By: #### B MP #### [facility] [address] [address] [address] Alek Fu Urea nitrogen [Mass/Vol] 11.0 mg/dL Normal 7.0-17.0 [facility] Comment on above: Performed By: #### B MP #### [facility] [address] [address] [address] Alek Fu Urea nitrogen/Creatinin e [Mass ratio] 11.5 mg/mg Normal [facility] Comment on above: Performed By: #### B MP #### [facility] [address] [address] [address] Alek Fu [facility]on [facility]-19 SARS-CoV-2 (COVID-19) RNA SANTANA+probe Ql (Unsp spec) Detected Critically abnormal NOT DETECTED [facility] Comment on above: Result Comment: This test is not yet approved or cleared by the [place] FDA. When there are no FDA-approved or cleared tests available, and other criteria are met, FDA can make tests available under an emergency access mechanism called an Emergency Use Authorization (EUA). The EUA for this test is supported by the Resident Physician In Radiology of Health and Human Service's (HHS's) declaration [...] longer be used). Performed By: #### C TB #### [facility] [address] [place] [address] Dr. Alek Fu Vital Signs Date Time Vital Sign Value Performing Clinician Faci anthony 01-17-2024 10:15-0400 Body mass index (BMI) [Ratio] 36 kg/m2 Amanda ROMAN Work Phone: [facility] 01-17-2024 10:15-0400 Body weight 89.27 kg Amanda ROMAN Work Phone: [facility] 01-17-2024 10:15-0400 Diastolic blood pressure 70 mm[Hg] Amanda ROMAN Work Phone: [facility] 01-17-2024 10:15-0400 Systolic blood pressure 122 mm[Hg] Amanda ROMAN Work Phone: [facility] 12-20-2023 09:58-0400 Body mass index (BMI) [Ratio] 34.93 kg/m2 Amanda ROMAN Work Phone: [facility] 12-20-2023 09:58-0400 Body weight 86.64 kg Amanda ROMAN Work Phone: [facility] 12-20-2023 09:58-0400 Diastolic blood pressure 76 mm[Hg] Amanda ROMAN Work Phone: [facility] 12-20-2023 09:58-0400 Systolic blood pressure 124 mm[Hg] Amanda ROMAN Work Phone: [facility] Healthcare Encounters Encounter Date Encounter Type Care Provider Facility Start: 01-17-2024 End: 01-17-2024 Bamboo flowsheet Amanda ROMAN Work Phone: [facility] Start: 01-17-2024 End: 01-17-2024 Bamboo flowsheet Amanda ROMAN Work Phone: [facility] Start: 01-17-2024 End: 01-17-2024 flow sheet Amanda ROMAN Work Phone: [facility] Comment on above: Diabetes mellitus sc reening; Second trimester ; 24 weeks gestation of Start: 01-17-2024 End: 01-17-2024 ambulatory AMANDA JUAN Not Available Start: 12-20-2023 End: 12-20-2023 Bamboo flowsheet Amanda ROMAN Work Phone: [facility] Start: 12-20-2023 End: 12-20-2023 Bamboo flowsheet Amanda ROMAN Work Phone: [facility] Start: 12-20-2023 End: 12-20-2023 flow sheet Amanda ROMAN Work Phone: [facility] Comment on above: Encounter for follow -up ultrasound of anatomy; Second trimester ; 20 weeks gestation of Start: 12-20-2023 End: 12-20-2023 ambulatory AMANDA JUAN Not Available Start: 11-23-2023 End: 11-23-2023 ambulatory [...] Office outpatient ne w 45 minutes Dee [facility] Start: 05-11-2022 End: 05-11-2022 ambulatory Dee Buchanan Facility:[facility] Start: 05-11-2022 End: 05-11-2022 ambulatory MD Dee Buchanan Work Phone: [facility] Work Phone: Start: 05-11-2022 End: 05-11-2022 Patient encounter procedure MD Dee Buchanan Work Phone: [facility] Start: 08-10-2021 End: 08-10-[address] ANAI BURGER Facility:[facility] Start: 07-17-2021 End: 07-18-[address] MARLENE PLASENCIA Facility:[facility] Start: 12-08-2020 End: 12-08-[address] VERITO LAMB Facility:[facility] Start: 12-03-2020 End: 12-03-[address] VERITO LAMB Facility:[facility] Procedures Date Procedure Procedure Detail Performing Clinician Start: 01-17-2024 Urnls dip stick/tabl et rgnt non-auto w/o micrscp Amanda ROMAN Work Phone: Start: 12-20-2023 Urnls dip stick/tabl et rgnt non-auto w/o micrscp Amanda ROMAN Work Phone: Start: 05-11-2022 Plain X-ray of left wrist MD Dee Buchanan Work Phone: Plan of Treatment Date Care Activity Detail Author Start: 02-20-2024 End: 02-20-2024 Patient encounter procedure 02/20/2024 9:50 AM EST Routine [facility] [address] [place] [address] Anai Burger, DO [address] [place] [address] [facility] Start: 01-20-2024 End: 12-19-2024 US for US OB INCOMPLETE ANATOMY W US OB TRANSVAGINAL Imaging Routine Encounter for follow-up ultrasound of anatomy Expected: 01/20/2024 (Approximate), Expires: 12/19/2024 [facility] Work Phone: Comment on above: Expected: 01/20/2024 (Approximate), Expires: 12/19/2024 Start: 01-17-2024 End: 01-16-2025 CBC panel - Blood by Automated count CBC Lab Routine Diabetes mellitus screening Expected: 01/17/2024 (Approximate), Expires: 01/16/2025 [facility] Work Phone: Comment on above: Expected: 01/17/2024 (Approximate), Expires: 01/16/2025 Start: 01-17-2024 End: 01-16-2025 Measurement of glucose 1 hour after glucose challenge for glucose tolerance test Glucose tolerance, 1 hour Lab Routine Diabetes mellitus screening Expected: 01/17/2024 (Approximate), Expires: 01/16/2025 [facility] Comment on above: Expected: 01/17/2024 (Approximate), Expires: 01/16/2025 Start: 01-17-2024 End: 01-17-2024 Patient encounter procedure [facility] Comment on above: Arrived Start: 01-17-2024 End: 01-17-2024 Professional / ancillary services management 01/17/2024 9:30 AM EDT Ancillary Procedure [facility] [address] [facility] [place] [address] [facility] Start: 12-20-2023 End: 12-20-2023 Patient encounter procedure 12/20/2023 9:30 AM EDT Routine [facility] [address] [place] [address] Amanda Martinez PA [address] [place], [facility] Arrived [facility] Comment on above: Arrived Start: 11-20-2023 Influenza vaccination Influenza Vacc ine (#1) [facility] Immunizations Immunization Date Immunization Notes Care Provider Fa cility 12-09-2019 diphtheria, tetanus toxoids and pertussis vaccine Amanda ROMAN Work Phone: [facility] 12-09-2019 measles, mumps and rubella virus vaccine Amanda [place] PA Work Phone: [facility] 05-30-2000 diphtheria, tetanus toxoids and acellular pertussis vaccine, unspecified formulation Amanda ROMAN Work Phone: [facility] Work Phone: 05-30-2000 measles, mumps and rubella virus vaccine Amanda ROMAN Work Phone: [facility] 05-30-2000 poliovirus vaccine, inactivated Amanda ROMAN Work Phone: [facility] 03-30-2000 influenza, seasonal, injectable Amanda ROMAN Work Phone: [facility] 03-30-2000 influenza virus vaccine, unspecified formulation Amanda ROMAN Work Phone: [facility] 09-12-1998 haemophilus influenz ae type b vaccine, conjugate unspecified formulation Amanda ROMAN Work Phone: [facility] 11-28-1996 diphtheria, tetanus toxoids and acellular pertussis vaccine, unspecified formulation Amanda ROMAN Work Phone: [facility] 11-28-1996 haemophilus influenz ae type b vaccine, conjugate unspecified formulation Amanda ROMAN Work Phone: [facility] 11-28-1996 measles, mumps and rubella virus vaccine Amanda ROMAN Work Phone: [facility] 10-27-1996 trivalent poliovirus vaccine, live, oral Amanda ROMAN Work Phone: [facility] 01-31-1996 DTP-Haemophilus influenzae type b conjugate vaccine Amanda ROMAN Work Phone: [facility] 01-31-1996 hepatitis B vaccine, pediatric or pediatric/adolescent dosage Amanda ROMAN Work Phone: [facility] 01-31-1996 trivalent poliovirus vaccine, live, oral Amanda ROMAN Work Phone: [facility] 1995 DTP-Haemophilus influenzae type b conjugate vaccine Amanda ROMAN Work Phone: [facility] 1995 trivalent poliovirus vaccine, live, oral Amanda ORMAN Work Phone: [facility] 1995 DTP-Haemophilus influenzae type b conjugate vaccine Amanda ROMAN Work Phone: [facility] 1995 hepatitis B vaccine, pediatric or pediatric/adolescent dosage Amanda ROMAN Work Phone: [facility] 1995 haemophilus influenz ae type b vaccine, conjugate unspecified formulation Amanda ROMAN Work Phone: [facility] 1995 hepatitis B vaccine, pediatric or pediatric/adolescent dosage Amanda ROMAN Work Phone: [facility] Payers Date Payer Category Payer [facility] Care O (unspecified) [id number] 2023 Private Health Insurance [id number] 2022 Private Health Insurance [id number] 2022 Self-pay 2022 Unknown [id number] 1995 Unknown [id number] 2.16.84 [id number] 1995 Unknown [id number] 2.16.84 0.1.158522.3.579.2.593 1995 Unknown [id number] 2.16.84 0.1.668479.3.579.2.593 1995 Unknown [id number] 2.16.84 0.1.663281.3.579.2.593 1995 Unknown [id number] 2.16.840.1.407201.3.579.2.1259 1995 Unknown [id number] 2.16.840.1.165957.3.579.2.1259 1995 Unknown [id number] 2.16.840.1.730041.3.579.2.9 1995 Unknown [id number] 2.16.840.1.755051.3.579.2.9 1995 Unknown [id number] 2.16.840.1.528681.3.579.2.9 1995 Unknown [id number] 2.16.840.1.063813.3.579.2.1258 1995 Unknown [id number] 2.16.840.1.600851.3.579.2.1258 1995 Unknown [id number] 2.16.840.1.054413.3.579.2.1258 1995 Unknown [id number] 2.16.840.1.861328.3.579.2.1258 1995 Unknown [id number] 2.16.840.1.277834.3.579.2.1258 1995 Unknown [id number] 2.16.840 .1.569938.3.579.2.1258 1995 Unknown [id number] 2.16.840 .1.441987.3.579.2.9 1959 Unknown [id number] 1959 Unknown [id number] 1959 Unknown [id number] Unknown [id number] 2.16.840.1.193846.3.579.2.531 Social History Date Type Detail Facility Tobacco smoking stat [facility] Unknown if ever smoked [facility] Work Phone: Start: 1995 Sex Assigned At Female [facility] Start: 09-08-2023 End: 11-23-2023 Sex Assigned At [facility] Start: 11-24-2022 Tobacco smoking status CTIS Never smoked tobacco [facility] Start: 11-24-2022 Tobacco use and exposure Smokeless tobacco non-user [facility] Start: 11-23-2023 Alcoholic beverage intake Ex-drinker (finding) [facility] Start: 09-08-2023 End: 11-23-2023 Alcoholic beverage intake [facility] How often do you nee d to have someone help you when you read instructions, pamphlets, or other written material from your doctor or pharmacy [SILS] Never [facility] Do you belong to any clubs or organizations such as adventist groups, unions, fraternal or athletic groups, or [...] [facility] History of Present illness Narrative 01-17-2024 ABEL Carroll - 01/17/2024 10:10 AM EDT Note Date & Type Note Facility 01-17-2024 History of Presen t illness Narrative Reason [...] Exam Constitutional: Appearance: Normal appearance. She is well-developed. Cardiovascular: Rate and Rhythm: Normal rate and regular rhythm. Pulmonary: Effort: Pulmonary effort is normal. Breath sounds: Normal breath sounds. Abdominal: General: Bowel sounds are normal. There is no distension. Palpations: Abdomen is soft. Tenderness: There is no abdominal tenderness. There is no guarding or rebound. Musculoskeletal: General: No swelling. Normal range of motion. Right lower leg: No edema. Left lower leg: No edema. Neurological: Mental Status: She is alert and oriented to person, place, and time. Skin: General: Skin is warm and dry. Psychiatric: Mood and Affect: Mood normal. Behavior: Behavior normal. Vitals and nursing note reviewed. Exam conducted with a manufacturing engineer chief present. Vitals: Estimated body mass index is 36 kg/m as calculated from the following: Height as of 11/23/23: 5' 2 . Weight as of this encounter: 196 lb 12.8 oz. BP: 122/70 Patient's last menstrual period was 07/27/2023. ASSESSMENT & PLAN ICD-10-CM 1. Diabetes mellitus screening Z13.1 CBC Glucose tolerance, 1 hour 2. Second trimester Z34.92 POCT urinalysis dipstick manually resulted 3. 24 weeks gestation of Z3A.24 POCT urinalysis dipstick manually resulted Return OB: Patient presents today for a routine obstetrics appointment. Patient is currently 24w6d . Patient states she is doing well but has complaints of being tired due to current . Patient has verbalizes frequent movement. labor precautions was discussed/given and patient was instructed to perform kick counts three times a day. Orders Placed This Encounter Procedures CBC Glucose tolerance, 1 hour POCT urinalysis dipstick manually resulted Follow Up: Patient is to return to office in 4 weeks for routine OB appointment. Documented by Trina Ivy LPN on behalf of: ABEL Carroll documented in this encounter [facility] History of Present illness Narrative 10-01-2024 ABEL Carroll - 12/20/2023 9:30 AM EDT [...] calculated from the following: Height as of 24: 5' 2 . Weight as of this [...] of: ABEL Carroll documented in this encounter [facility] Evaluation note 05-11-2022 Note Date & [...] Instructed patient to wear brace for activities. [employer] Other Evaluation note Note Date & Type Note Facility Evaluation note No assessment information availa [facility] Work Phone: Evaluation note Note Date & Type Note Facility Evaluation note Diagnosis Encounter for follow-up ultrasound of anatomy Second trimester state, incidental 20 weeks gestation of documented in this encounter [facility] Healthcare Evaluation note Note Date & Type Note Facility Evaluation note Diagnosis Diabetes mellitus screening Screening for diabetes mellitus Second trimester state, incidental 24 weeks gestation of documented in this encounter [facility] Healthcare History general Narrative - Reported Note Date & Type Note Facility History general Narrative - Reported Type Medical History learning disability Surgical History tymponostomy x7 [employer] Other Summary Purpose Family History No Family History Records FoundNo Family History Records FoundNo Family History Records Found Advance Directives No Advanced Directives Records FoundNo Advanced Directives Records FoundNo Advanced Directives Records Found Additional Source Comments INFORMATION SOURCE (unrecogn ized section and content) DATE CREATED AUTHOR 09/12/2021 [facility] DATE CREATED AUTHOR AUTHOR'S ORGANIZ ATION 05/21/2022 [facility] DATE CREATED AUTHOR AUTHOR'S ORGANIZ ATION 01/18/2024 [facility] d[facility] Specialists EP[employer] Care Teams (unrecognized sec tion and content) Team Status: Inactive Member Role Status Dates Dee Buchanan MD Attending Provider Active Exhibit Builder Relationship Specialty Start Date End Date Verito Lamb MD [address] [place] [address] PCP - General Family Medicine 10/18/22 Exhibit Builder Relationship Specialty Start Date End Date Verito Lamb MD [address] [place] [address] PCP - General Family Medicine 10/18/22 Goals [...] BE BASED ON THE PRIMARY CLINICAL RECORDS. [facility] [employer] [facility]. provides no warranty or guarantee of the accuracy or completeness of information in this document.
[2024-01-25 11:47] LABS: Glucose 1 Hour 131 mg/dL (<130)
[2024-01-25 11:48] LABS: Basophils Percent Auto 0.3 % (0.2-2.0); Eosinophils Absolute Auto 0.2 10^3/uL (0.0-0.7); Eosinophils Percent Auto 1.3 % (0.9-7.0); Hematocrit 37.4 % (36.0-48.0); Hemoglobin 12.6 g/dL (12.0-16.0); Immature Granulocytes Abs Auto 0.15 10^3/uL (0.00-0.03); Immature Granulocytes Pct Auto 1.3 % (0.0-0.5); Lymphocytes Absolute Auto 2.8 10^3/uL (1.2-3.8); Lymphocytes Percent Auto 24.2 % (20.5-60.0); Mean Corpuscular HGB Conc 33.7 g/dL (29.9-35.2); Mean Corpuscular Hemoglobin 29.6 pg (26.7-34.0); Monocytes Absolute Auto 0.6 10^3/uL (0.3-0.8); Monocytes Percent Auto 5.1 % (1.7-12.0); Neutrophils Absolute Auto 7.9 10^3/uL (1.4-6.5); Neutrophils Percent Auto 67.8 % (43.0-75.0); Platelet Count 210 10^3/uL (150-450); Red Blood Count 4.25 10^6/uL (4.20-5.40); Red Cell Distribution Width 13.4 % (11.0-15.0); White Blood Count 11.6 10^3/uL (4.0-11.0)
== END 2024-01-25 10:21 | disposition home or self-care (01) ==
LOC: LAB 10:22
PROVIDERS: PCP Family Medicine; Visit Provider Physician Assistant
DX: Z13.1 Encounter for screening for diabetes mellitus (principal)
CPT/HCPCS: 36415; 82950; 85025

== ENCOUNTER 2024-03-02 12:36 | Outpatient (OUT) | payer OTHER, SELFPAY ==
--- OUTSIDE RECORDS SUMMARY | 2024-03-02 12:44 | XMS_ITS | CCD ---
Author Organization [facility] Care Team Providers Care Guard Range Name Role Phone JENNYFER, DR OSPINA Admitting Unavailable JENNYFER, DR OSPINA Attending Unavailable ZAINAB, DR SANCHEZ Primary Care Unavailable JENNYFER, DR OSPINA Consulting Unavailable HEMMER, DR LORENE Bosch Admitting Unavailable HEMMER, DR LORENE Bosch Attending Unavailable ZAINAB, DR SANCHEZ Primary Care Unavailable West, DR De Guzman Consulting Unavailable HEMMER, DR LORENE Bosch Consulting Unavailable ZAINAB, DR SANCHEZ Admitting Unavailable ZAINAB, DR SANCHEZ Attending Unavailable ZAINAB, DR SANCHEZ Primary Care Unavailable ZAINAB, DR SANCHEZ Consulting Unavailable ZAINAB, DR SANCHEZ Primary Care Unavailable DYLON MCKEON Admitting Unavailable DYLON MCKEON Attending Unavailable ABEL MARTINEZ Consulting Unavailable DYLON MCKEON Consulting Unavailable MD Dee Buchanan Attending Provider [phone] Dee Buchanan Attending Unavailable Dee Buchanan Admitting Unavailable Dee Buchanan Unavailable Verito Lamb MD Primary Care Provider [phone] LORENE PLASENCIA Attending Unavailable LORENE PLASENCIA Attending Unavailable LORENE PLASENCIA Attending Unavailable SANGEETHA GRAY Attending Unavailable AMANDA MARTINEZ Attending Unavailable ANAI BURGER Attending Unavailable ANAI BURGER Attending Unavailable LORENE PLASENCIA Attending Unavailable AMANDA MARTINEZ Attending Unavailable AMANDA MARTINEZ Attending Unavailable ANAI BURGER Attending Unavailable Allergies Allergy Classification Reported Allergen(s) Allergy Type Date of Onset Reaction(s) Facility (1 source) Cephalexin Drug Allergy [facility] (10 sources) ARIPiprazole Drug Allergy 3 [facility] Work Phone: (10 sources) cariprazine Drug Allergy 3 [facility] (10 sources) Cephalexin Drug Allergy 3 Unknown [facility] (10 sources) Propofol Drug Allergy 3 Unknown [facility] (10 sources) Flavoring Agent Allergy to substance 3 Unknown [facility] (10 sources) Mosquito (Diagnostic) Drug Allergy 3 Unknown [facility] Medications Current Medications Medication Drug Class(es) Dates Sig (Normalized) Sig (Original) buPROPion hydrochloride 100 mg oral tablet (1 source) Aminoketone take 1 tablet by mouth every twelve hours buPROPion HCl 100 MG 1 tablet Orally Twice a day Active busPIRone hydrochloride 15 mg oral tablet (10 sources) Start: 11-23-2023 take 1 tablet by mouth once daily busPIRone (Buspar) 15 MG tablet Indications: Generalized anxiety disorder (CMS/HCC) Take 1 tablet (15 mg) by mouth Daily 11/23/2023 Active cetirizine hydrochloride 10 mg oral tablet (10 sources) Histamine-1 Receptor Antagonist take 1 tablet by mouth once daily cetirizine (ZyrTEC) 10 MG tablet Take 10 mg by mouth Daily Active fluticasone propionate 0.05 mg/actuat metered dose nasal spray (10 sources) Corticosteroid take 1 spray(s) nasal route once daily as needed fluticasone (Flonase) 50 MCG/ACT nasal spray Administer 1 spray into each nostril Daily Shake gently. Before first use, prime pump. After use, clean tip and replace cap. PRN Active MV & Min w/FA-DHA ([facility] PO) (10 sources) take 1 tablet by mouth once daily MV & Min w/FA-DHA ([facility] PO) Take 1 tablet by mouth 1 (one) time each day Active 24 hr venlafaxine 37.5 mg extended release oral capsule (10 sources) Serotonin and Norepinephrine Reuptake Inhibitor Start: [...] Problem Date Documented Date Episodic/Chronic Allergic reactions (10 sources) Atopic dermatitis; Translations: [Atopic dermatitis, unspecified] Onset: 08-18-2022 08-18-2022 Chronic Anxiety disorders (10 sources) Generalized anxiety disorder; Translations: [Generalized anxiety disorder] Onset: 03-23-2023 03-23-2023 Chronic Esophageal disorders (10 sources) Gastroesophageal reflux disease without esophagitis; Translations: [Gastro-esophageal reflux disease without esophagitis] Onset: 08-18-2022 08-18-2022 Chronic Immunizations and screening for infectious disease (1 source) Encounter for screening for human papillomavirus (HPV); Translations: [ENC SCREENING HUMAN PAPILLOMAVIRUS] Onset: 08-13-2021 Episodic Mood disorders (10 sources) Moderately severe depression; Translations: [Moderately severe depression] Onset: 08-18-2022 08-18-2022 Chronic Other complications of (2 sources) Excessive growth affecting management of mother; Translations: [Maternal care for excessive growth, unspecified trimester, not applicable or unspecified] 02-20-2024 Episodic Other connective tissue disease (1 source) [...] Episodic Other nutritional; endocrine; and metabolic disorders (10 sources) Body mass index 30+ - obesity; Translations: [Obesity, unspecified] Onset: 08-18-2022 08-18-2022 Chronic Other and delivery including normal (6 sources) Second trimester ; Translations: [Encounter for supervision of normal , unspecified, second trimester] 12-20-2023 Episodic Other screening for suspected conditions (not mental disorders or infectious disease) (8 sources) Encounter for screening for malignant neoplasm of cervix; Translations: [Patient encounter status] Onset: 08-10-2021 Episodic Other upper respiratory disease (10 sources) Seasonal allergic rhinitis; Translations: [Other seasonal [...] Onset: 12-08-2020 Episodic Other connective tissue disease (10 sources) Ganglion cyst of left dorsal wrist; Translations: [Ganglion, left wrist] Onset: 08-18-2022 08-18-2022 Episodic Other lower respiratory disease (3 sources) Cough; Translations: [COUGH] Onset: 12-03-2020 Episodic Other upper respiratory disease (10 sources) Allergic rhinitis; Translations: [Allergic rhinitis, unspecified] Onset: 08-18-2022 Resolved: 01-05-2023 01-05-2023 Chronic Other upper respiratory infections (10 sources) Sinusitis; Translations: [Chronic sinusitis, unspecified] Onset: 08-18-2022 Resolved: 01-05-2023 01-05-2023 Chronic Otitis media and related conditions (20 sources) Dysfunction of eustachian tube; Translations: [Unspecified Eustachian tube disorder, unspecified ear] Onset: 08-18-2022 08-18-2022 Episodic Viral infection (10 sources) COVID-19; Translations: [Other specified viral infection] Onset: 08-18-2022 08-18-2022 Episodic Results Test Name Value Interpretation Reference Range Facility GLUCOSE 1 HOURon 01-25-2024 Glucose [Mass/Vol] 131 mg/dL High NINF - 13 0 mg/dL [facility] Interpretation and review of laboratory results Abnormal [facility] Urinalysis macro (dipstick) panel (U)on 01-17-2024 Bilirubin, UA Negative Negative - 4(70) +++ mg/dL [facility] Blood, UA Negative Negative - 50 Neno/mcL [facility] Clarity, UA Clear [facility] Color, UA Yellow [facility] Glucose, UA Negative Negative - 1999(110) ++++ mg/dL [facility] Interpretation and review of laboratory results Abnormal [facility] Ketones, UA Negative Negative - 160(16) ++++ mg/dL [facility] Leukocytes, UA Trace Negative - 500+++ Virgie/mcL [facility] Nitrite, UA Negative Negative - Positive [facility] pH, UA 6 5 - 9 [facility] Protein, UA Negative Negative - 1999(20) ++++ mg/dL [facility] Spec Grav, UA 1.02 1 - 1.03 [facility] Urobilinogen, UA 1.0 0.2 - 12 mg/dL [facility] Urinalysis macro (dipstick) panel (U)on 12-20-2023 Bilirubin, UA Negative Negative - 4(70) +++ mg/dL [facility] Blood, UA Negative Negative - 50 Neno/mcL [facility] Clarity, UA Clear [facility] Color, UA Yellow [facility] Glucose, UA Negative Negative - 1999(110) ++++ mg/dL [facility] Interpretation and review of laboratory results Abnormal [facility] Ketones, UA Negative Negative - 160(16) ++++ mg/dL [facility] Leukocytes, UA Trace Negative - 500+++ Virgie/mcL [facility] Nitrite, UA Negative Negative - Positive [facility] pH, UA 6.5 5 - 9 [facility] Protein, UA Negative Negative - 1999(20) ++++ mg/dL [facility] Spec Grav, UA 1.025 1 - 1.03 [facility] Urobilinogen, UA 0.2 0.2 - 12 mg/dL [facility] XR wrist LT min 3V*on 2022 XR wrist LT min 3V* [facility] Main [address] [address] XRay Report Signed Patient: Nazia Harper MR#: [id number] 67 : 1995 Acct:[id number] Age/Sex: 26 / F ADM Date: 05/11/22 [place] [facility] [place] Type: [facility] Attending Dr: Dee Buchanan MD Copies to: [...] PROCESS. Impression dictated by: Tan Travis Jr., D.O.05/11/2022 12:18 PM Dictation Location: [place] [address] Transcribed By: [facility] 05/11/22 1218 Dictated By: Tan Travis Jr, DO 05/11/22 1217 Signed By: 05/11/22 1218 Normal [facility] XR wrist LT min 3V* [facility] [employer] Other XR wrist LT min 3V* [facility] [employer] Other XR wrist LT min 3V* [address] [place] [address] [employer] Other XR wrist LT min 3V* [address] [employer] Other XR wrist LT min 3V* XRay Report [facility] [employer] Other XR wrist LT min 3V* Signed [employer] Other XR wrist LT min 3V* Patient: Nazia Harper MR#: [id number] [email or web address] Other XR wrist LT min 3V* 67 [employer] Other XR wrist LT min 3V* : 1995 Acct:[id number] [email or web address] Other XR wrist LT min 3V* Age/Sex: 26 / F ADM Date: 05/11/22 [employer] Other XR wrist LT min 3V* Loc: [facility] Room: Type: REG CLI [employer] Other XR wrist LT min 3V* Attending Dr: Dee Buchanan MD [employer] Other XR wrist LT min 3V* Copies to: Dee Buchanan MD [employer] Other XR wrist LT min 3V* Ordering Provider: Dee Buchanan MD [employer] Other XR wrist LT min 3V* Date of Service: 05/11/22 [employer] Other XR wrist LT min 3V* XR/XR wrist LT min 3V*: PAIN [employer] Other XR wrist LT min 3V* LEFT WRIST - 4 views [employer] Other XR wrist LT min 3V* CLINICAL HISTORY: Ganglion cyst posterior aspect at the level of the carpals. [employer] Other XR wrist LT min 3V* COMPARISON: None [employer] Other XR wrist LT min 3V* FINDINGS: [employer] Other XR wrist LT min 3V* No focal soft tissue abnormality is noted. No acute bony process is seen. Carpal bones appear [employer] Other XR wrist LT min 3V* unremarkable. [employer] Other XR wrist LT min 3V* XR/XR wrist LT min 3V* [employer] Other XR wrist LT min 3V* IMPRESSION: [employer] Other XR wrist LT min 3V* NO ACUTE BONY PROCESS. [employer] Other XR wrist LT min 3V* Impression dictated by: Tan Travis Jr., D.O.05/11/2022 12:18 PM [employer] Other XR wrist LT min 3V* Dictation Location: [place] [address] [employer] Other XR wrist LT min 3V* Transcribed By: [facility] 05/11/22 [facility] [employer] Other XR wrist LT min 3V* Dictated By: Tan Travis Jr DO 05/11/22 [facility] [employer] Other XR wrist LT min 3V* Signed By: [employer] Other XR wrist LT min 3V* 05/11/22 [facility] [employer] Other PAP ACOG PANEL 2: 21 to 29on 08-15-2021 . . Normal [facility] Comment on above: Result Comment: Perf ormed at: BA Performed By: #### [id number] #### [facility] [address] [place] [address] Dr. Alek Fu Age Gdln ACOG Testing [facility] Comment on above: Performed By: #### [id number] #### [facility] [address] [address] [address] Alek Fu DIAGNOSIS: Comment [facility] Comment on above: Result Comment: NEGA TIVE FOR INTRAEPITHELIAL LESION OR MALIGNANCY. Performed at: BA Performed By: #### [id number] #### [facility] [address] [place] [address] [address] Alek Fu Methodology: Comment [facility] Comment on above: Result Comment: This liquid based ThinPrep(R) pap test was screened with the use of an image guided system. Performed at: WB Performed By: #### [id number] #### [facility] [address] [place] [address] Dr. Alek Fu Note: Comment [facility] Comment on above: Result Comment: The Pap smear is a screening test designed to aid in the detection of premalignant and malignant conditions of the uterine cervix. It is not a diagnostic procedure and should not be used as the sole means of detecting cervical cancer. Both false-positive and false-negative reports do occur. . Performed at: WB Performed By: #### [id number] #### [facility] [address] [place] [address] Dr. Alek Fu Performed by: Comment Normal [facility] Comment on above: Result Comment: Elen Carrillo, Grab Driver (ASCP) Performed at: BA Performed By: #### [id number] #### [facility] [address] [place] [address] Dr. Alek Fu Reflex Criteria: Comment Normal [facility] Comment on above: Result Comment: The HPV DNA reflex criteria were not met with this specimen result therefore, no HPV testing was performed. . Performed at: BA Performed By: #### [id number] #### [facility] [address] [place] [address] Dr. Alek Fu Specimen adequacy: Comment Normal [facility] Comment on above: Result Comment: Sati sfactory for evaluation. Endocervical and/or squamous metaplastic cells (endocervical component) are present. Performed at: BA Performed By: #### [id number] #### [facility] [address] [place] [address] Dr. Alek Fu XR KNEE SABRINA 4V [...] by: ZURI PHOENIX Date: 2021-07-17 17:09 Normal [facility] CBC AUTO DIFFon 12-08-2020 BASO # 0.0 103/ul Normal 0.0-0.1 [facility] Comment on above: Performed By: #### C BC #### [facility] [address] [address] [address] Alek Fu Basophils/100 WBC (Bld) 0.2 % Normal 0.2-2.0 [facility] Comment on above: Performed By: #### C BC #### [facility] [address] [address] [address] Alek Fu EO # 0.0 103/ul Normal 0.0-0.7 [facility] Comment on above: Performed By: #### C BC #### [facility] [address] [place] [address] Dr. Alek Fu Eosinophils/100 WBC (Bld) 0.6 % Critically low 0.9-7.0 [facility] Comment on above: Performed By: #### C BC #### [facility] [address] [place] [address] Dr. Alek Fu Erythrocyte distribution width (RBC) [Ratio] 12.4 % Normal 11.0-15.0 [facility] Comment on above: Performed By: #### C BC #### [facility] [address] [place] [address] Dr. Alek Fu Hematocrit (Bld) [Volume fraction] 44.3 % Normal 36.0-48.0 [facility] Comment on above: Performed By: #### C BC #### [facility] [address] [place] [address] Dr. Alek Fu Hemoglobin (Bld) [Mass/Vol] 15.4 g/dL Normal 12.0-16.0 [facility] Comment on above: Performed By: #### C BC #### [facility] [address] [place] [address] Dr. Alek Fu IG # 0.04 10e3/ul Critically high 0.00-0.03 [facility] Comment on above: Performed By: #### C BC #### [facility] [address] [place] [address] Dr. Alek Fu IG % 0.6 % Critically high 0.0-0.5 [facility] Comment on above: Performed By: #### C BC #### [facility] [address] [place] [address] Dr. Alek Fu LYMPH # 3.2 103/ul Normal 1.2-3.8 [facility] Comment on above: Performed By: #### C BC #### [facility] [address] [place] [address] Dr. Alek Fu Lymphocytes/100 WBC (Bld) 50.2 % Normal 20.5-60.0 [facility] Comment on above: Performed By: #### C BC #### [facility] [address] [place] [address] Dr. Alek Fu MANUAL DIFF REQ NO Normal [facility] Comment on above: Performed By: #### C BC #### [facility] [address] [place] [address] Dr. Alek Fu MCH (RBC) [Entitic mass] 28.7 pg Normal 26.7-34.0 [facility] Comment on above: Performed By: #### C BC #### [facility] [address] [place] [address] Dr. Alek Fu MCHC (RBC) [Mass/Vol] 34.8 g/dL Normal 29.9-35.2 [facility] Comment on above: Performed By: #### C BC #### [facility] [address] [place] [address] Dr. Alek Fu MCV (RBC) [Entitic vol] 82.5 fL Normal 81.0-99.0 [facility] Comment on above: Performed By: #### C BC #### [facility] [address] [place] [address] Dr. Alek Fu MONO # 0.6 103/ul Normal 0.3-0.8 [facility] Comment on above: Performed By: #### C BC #### [facility] [address] [place] [address] Dr. Alek Fu Monocytes/100 WBC (Bld) 10.0 % Normal 1.7-12.0 [facility] Comment on above: Performed By: #### C BC #### [facility] [address] [place] [address] Dr. Alek Fu NEUT # 2.4 103/ul Normal 1.4-6.5 [facility] Comment on above: Performed By: #### C BC #### [facility] [address] [place] [address] Dr. Alek Fu Neutrophils/100 WBC (Bld) 38.4 % Critically low 43.0-75.0 [facility] Comment on above: Performed By: #### C BC #### [facility] [address] [place] [address] Dr. Alek Fu Platelet mean volume (Bld) [Entitic vol] 9.9 fL Normal 9.5-13.5 [facility] Comment on above: Performed By: #### C BC #### [facility] [address] [place] [address] Dr. Alek Fu PLT 206 103/ul Normal 150-450 [facility] Comment on above: Performed By: #### C BC #### [facility] [address] [place] [address] Dr. Alek Fu RBC 5.37 106/ul Normal 4.20-5.40 [facility] Comment on above: Performed By: #### C BC #### [facility] [address] [place] [address] Dr. Alek Fu WBC 6.3 103/ul Normal 4.0-11.0 [facility] Comment on above: Performed By: #### C BC #### [facility] [address] [place] [address] Dr. Alek Fu ER URINE PROFILEon 1 Bilirubin Ql (U) Negative Normal NEGATIVE [facility] Comment on above: Performed By: #### E RUR #### [facility] [address] [place] [address] Dr. Alek Fu Clarity (U) CLEAR Normal CLEAR [facility] Comment on above: Performed By: #### E RUR #### [facility] [address] [place] [address] Dr. Alek Fu Color (U) YELLOW Normal YELLOW [facility] Comment on above: Performed By: #### E RUR #### [facility] [address] [address] [address] Alek WOOD A micrscopic examination will be performed if indicated. Normal [facility] Comment on above: Performed By: #### E RUR #### [facility] [address] [address] [address] Alek Fu Glucose Ql (U) Negative Normal NEGATIVE [facility] Comment on above: Performed By: #### E RUR #### [facility] [address] [place] [address] Dr. Alek Fu Hemoglobin Ql (U) TRACE-INTACT Abnormal NEGATIVE [facility] Comment on above: Performed By: #### E RUR #### [facility] [address] [place] [address] Dr. Alek Fu Ketones Ql (U) TRACE Abnormal NEGATIVE [facility] Comment on above: Performed By: #### E RUR #### [facility] [address] [place] [address] Dr. Alek Fu LEUKOCYTES Negative Normal NEGATIVE [facility] Comment on above: Performed By: #### E RUR #### [facility] [address] [place] [address] Dr. Alek Fu Nitrite Ql (U) Negative Normal NEGATIVE [facility] Comment on above: Performed By: #### E RUR #### [facility] [address] [place] [address] Dr. Alek Fu pH (U) 6.0 [pH] Normal 5-9 [facility] Comment on above: Performed By: #### E RUR #### [facility] [address] [place] [address] Dr. Alek Fu SPEC GRAVITY 1.015 Normal 1.005-<=1.025 [facility] Comment on above: Performed By: #### E RUR #### [facility] [address] [place] [address] Dr. Alek Fu UA PROTEIN Negative Normal NEGATIVE/ TRACE [facility] Comment on above: Performed By: #### E RUR #### [facility] [address] [address] [address] Alek Fu UR MICRO IND NOT INDICATED Normal [facility] Comment on above: Performed By: #### E RUR #### [facility] [address] [address] [address] Alek Fu Urobilinogen Qn (U) 0.2 {Roya'U}/dL Normal 0.2 - 1.0 [facility] Comment on above: Performed By: #### E RUR #### [facility] [address] [place] [address] Dr. Alek Fu URon 12-08-2020 , QUAL Negative Normal NEGATIVE [facility] Comment on above: Performed By: #### P REGU #### [facility] [address] [place] [address] Dr. Alek Fu PROF CHEM 8 (BAS METB)on Anion gap [Moles/Vol] 13.0 mmol/L Normal [facility] Comment on above: Performed By: #### B MP #### [facility] [address] [place] [address] Dr. Alek Fu Calcium [Mass/Vol] 9.0 mg/dL Normal 8.4-10.2 [facility] Comment on above: Performed By: #### B MP #### [facility] [address] [place] [address] Dr. Alek Fu Chloride [Moles/Vol] 103 mmol/L Normal 98-107 [facility] Comment on above: Performed By: #### B MP #### [facility] [address] [place] [address] Dr. Alek Fu CO2 [Moles/Vol] 25.0 mmol/L Normal 22.0-30.0 [facility] Comment on above: Performed By: #### B MP #### [facility] [address] [place] [address] Dr. Alek Fu Creatinine [Mass/Vol] 0.96 mg/dL Normal 0.52-1.04 [facility] Comment on above: Performed By: #### B MP #### [facility] [address] [address] [address] Alek Fu EGFR-AF STATELESS >60 Normal >=60 [facility] Comment on above: Performed By: #### B MP #### [facility] [address] [place] [address] Dr. Alek Fu EGFR-NON AF STATELESS >60 Normal >=60 [facility] Comment on above: Performed By: #### B MP #### [facility] [address] [address] [address] Alek Fu Glucose [Mass/Vol] 99 mg/dL Normal 74-106 [facility] Comment on above: Performed By: #### B MP #### [facility] [address] [place] [address] Dr. Alek Fu Potassium [Moles/Vol] 3.0 mmol/L Critically low 3.4-5.0 [facility] Comment on above: Performed By: #### B MP #### [facility] [address] [place] [address] Dr. Alek Fu Sodium [Moles/Vol] 138 mmol/L Normal 137-145 [facility] Comment on above: Performed By: #### B MP #### [facility] [address] [place] [address] Dr. Alek Fu Urea nitrogen [Mass/Vol] 11.0 mg/dL Normal 7.0-17.0 [facility] Comment on above: Performed By: #### B MP #### [facility] [address] [place] [address] Dr. Alek Fu Urea nitrogen/Creatinin e [Mass ratio] 11.5 mg/mg Normal [facility] Comment on above: Performed By: #### B MP #### [facility] [address] [place] [address] Dr. Alek Fu Covid-19 PCR ([facility])on 11-19 SARS-CoV-2 (COVID-19) RNA SANTANA+probe Ql (Unsp spec) Detected Critically abnormal NOT DETECTED [facility] Comment on above: Result Comment: This test is not yet approved or cleared by the [place] FDA. When there are no FDA-approved or cleared tests available, and other criteria are met, FDA can make tests available under an emergency access mechanism called an Emergency Use Authorization (EUA). The EUA for this test is supported by the [place] of Health and Human Service's (HHS's) declaration [...] longer be used). Performed By: #### C [facility] #### [facility] [address] [place] [address] Dr. Alek Fu Vital Signs Date Time Vital Sign Value Performing Clinician Faci lity 02-20-2024 10:07-0500 Body mass index (BMI) [Ratio] 37.68 kg/m2 [employer] Work Phone: [facility] 02-20-2024 10:07-0500 Body weight 93.44 kg [employer] Work Phone: [facility] 02-20-2024 10:07-0500 Diastolic blood pressure 80 mm[Hg] [employer] Work Phone: [facility] 02-20-2024 10:07-0500 Systolic blood pressure 122 mm[Hg] Anai [employer] Work Phone: [facility] 01-17-2024 10:15-0400 Body mass index (BMI) [Ratio] 36 kg/m2 Amanda ROMAN Work Phone: [facility] 01-17-2024 10:15-0400 Body weight 89.27 kg Amanda ROMAN Work Phone: [facility] 01-17-2024 10:15-0400 Diastolic blood pressure 70 mm[Hg] Amanda ROMAN Work Phone: [facility] 01-17-2024 10:15-0400 Systolic blood pressure 122 mm[Hg] Amanda ROMAN Work Phone: [facility] 12-20-2023 09:58-0400 Body mass index (BMI) [Ratio] 34.93 kg/m2 Amanda ROMAN Work Phone: [facility] 12-20-2023 09:58-0400 Body weight 86.64 kg Amanda ROMAN Work Phone: [facility] 12-20-2023 09:58-0400 Diastolic blood pressure 76 mm[Hg] Amanda ROMAN Work Phone: [facility] 12-20-2023 09:58-0400 Systolic blood pressure 124 mm[Hg] Amanda ROMAN Work Phone: [facility] Healthcare Encounters Encounter Date Encounter Type Care Provider Facility Start: 02-20-2024 End: 02-20-2024 Bamboo flowsheet Anai Jennyfer DO Work Phone: [facility] Start: 02-20-2024 End: 02-20-2024 Bamboo flowsheet Anai Jennyfer DO Work Phone: [facility] Start: 02-20-2024 End: 02-20-2024 flow sheet Anai Jennyfer DO Work Phone: [facility] Comment on above: Third trimester preg gregor; Excessive growth affecting management of , antepartum, single or unspecified fetus Start: 02-20-2024 End: 02-20-2024 ambulatory ANAI JENNYFER Not Available Start: 01-25-2024 End: 01-25-2024 Clinisync Result Encounter Generic External Data Provider [facility] Unsolicited Start: 01-25-2024 End: 01-25-2024 Clinisync Result Encounter Generic External Data Provider [facility] Unsolicited Start: 01-17-2024 End: 01-17-2024 Bamboo flowsheet Amanda ROMAN Work Phone: [facility] Start: 01-17-2024 End: 01-17-2024 Bamboo flowsheet Amanda ROMAN Work Phone: [facility] Start: 01-17-2024 End: 01-17-2024 flow sheet Amanda ROMAN Work Phone: [facility] Comment on above: Diabetes mellitus sc reening; Second trimester ; 24 weeks gestation of Start: 01-17-2024 End: 01-17-2024 ambulatory AMANDA JUAN Not Available Start: 12-20-2023 End: 12-20-2023 Bamboo flowsheet Amanda ROMAN Work Phone: [facility] Start: 12-20-2023 End: 12-20-2023 Bamboo flowsheet Amanda ROMAN Work Phone: [facility] Start: 12-20-2023 End: 12-20-2023 flow sheet Amanda ROMAN Work Phone: [facility] Comment on above: Encounter for follow -up ultrasound of anatomy; Second trimester ; 20 weeks gestation of Start: 12-20-2023 End: 12-20-2023 ambulatory AMANDA JUAN Not Available Start: 11-23-2023 End: 11-23-2023 ambulatory LORENE M HEMMER Not Available Start: 11-22-2023 End: 11-22-2023 ambulatory ANAI JENNYFER Not Available Start: 10-24-2023 End: 10-24-2023 ambulatory ANAI JENNYFER Not Available Start: 10-11-2023 End: 10-11-2023 ambulatory AMANDA JUAN Not Available Start: 09-29-2023 End: 09-29-2023 ambulatory LORENE HEMMER Not Available Start: 09-08-2023 End: 09-08-2023 ambulatory SANGEETHA M ISAAC Not Available Start: 07-26-2023 End: 07-26-2023 ambulatory LORENE M HEMMER Not Available Start: 06-16-2023 End: 06-16-2023 ambulatory LORENE M HEMMER Not Available Start: 03-23-2023 End: 03-23-2023 ambulatory LORENE M HEMMER Not Available Start: 05-11-2022 Office outpatient ne w 45 minutes [facility] Start: 05-11-2022 End: 05-11-2022 ambulatory Dee Buchanan Facility:[facility] Start: 05-11-2022 End: 05-11-2022 ambulatory MD Dee Buchanan Work Phone: [facility] Work Phone: Start: 05-11-2022 End: 05-11-2022 Patient encounter procedure MD Dee Buchanan Work Phone: [facility] Start: 08-10-2021 End: 08-10-[address] ANAI BURGER Facility:[facility] Start: 07-17-2021 End: 07-18-[address] LORENE PLASENCIA Facility:[facility] Start: 12-08-2020 End: 12-08-[address] VERITO LAMB Facility:[facility] Start: 12-03-2020 End: 12-03-[address] VERITO LAMB Facility:[facility] Procedures Date Procedure Procedure Detail Performing Clinician Start: 01-25-2024 GLUCOSE 1 HOUR Amanda Ayala Work Phone: Start: 01-17-2024 Urnls dip stick/tabl et rgnt non-auto w/o micrscp Amanda ROMAN Work Phone: Start: 12-20-2023 Urnls dip stick/tabl et rgnt non-auto w/o micrscp Amanda ROMAN Work Phone: Start: 05-11-2022 Plain X-ray of left wrist MD Dee Buchanan Work Phone: Plan of Treatment Date Care Activity Detail Author Start: 03-05-2024 End: 03-05-2024 Patient encounter procedure 03/05/2024 9:40 AM EST Routine [facility] [address] [place] [address] Amanda Martinez PA [address] [place] [address] [facility] Start: 03-05-2024 End: 03-05-2024 Professional / ancillary services management 03/05/2024 9:00 AM EST Ancillary Procedure [facility] [address] [place] [address] [facility] Start: 02-20-2024 End: 02-19-2025 US for US OB SCAN FOR GROWTH Imaging Routine Excessive growth affecting management of , antepartum, single or unspecified fetus Expected: 02/20/2024 (Approximate), Expires: 02/19/2025 [facility] Work Phone: Comment on above: Expected: 02/20/2024 (Approximate), Expires: 02/19/2025 Start: 02-20-2024 End: 02-20-2024 Patient encounter procedure [facility] Comment on above: Arrived Start: 01-20-2024 End: 12-19-2024 US for US OB INCOMPLETE ANATOMY W US OB TRANSVAGINAL Imaging Routine Encounter for follow-up ultrasound of anatomy Expected: 01/20/2024 (Approximate), Expires: 12/19/2024 [facility] Work Phone: Comment on above: Expected: 01/20/2024 (Approximate), Expires: 12/19/2024 Start: 01-17-2024 End: 01-16-2025 CBC panel - Blood by Automated count CBC Lab Routine Diabetes mellitus screening Expected: 01/17/2024 (Approximate), Expires: 01/16/2025 [facility] [employer] Work Phone: Comment on above: Expected: 01/17/2024 (Approximate), Expires: 01/16/2025 Start: 01-17-2024 End: 01-16-2025 Measurement of glucose 1 hour after glucose challenge for glucose tolerance test Glucose tolerance, 1 hour Lab Routine Diabetes mellitus screening Expected: 01/17/2024 (Approximate), Expires: 01/16/2025 [facility] [employer] Comment on above: Expected: 01/17/2024 (Approximate), Expires: 01/16/2025 Start: 01-17-2024 End: 01-17-2024 Patient encounter procedure [facility] Comment on above: Arrived Start: 01-17-2024 End: 01-17-2024 Professional / ancillary services management 01/17/2024 9:30 AM EDT Ancillary Procedure [facility] [address] [place] [address] [facility] Start: 12-20-2023 End: 12-20-2023 Patient encounter procedure 12/20/2023 9:30 AM EDT Routine [facility] [address] [place] [address] Amanda Martinez PA [address] [place] [address] Arrived [facility] Comment on above: Arrived Start: 11-20-2023 Influenza vaccination Influenza Vacc ine (#1) [facility] Immunizations Immunization Date Immunization Notes Care Provider Fa cility 12-09-2019 diphtheria, tetanus toxoids and pertussis vaccine Amanda ROMAN Work Phone: [facility] 12-09-2019 measles, mumps and rubella virus vaccine Amanda ROMAN Work Phone: [facility] 05-30-2000 diphtheria, tetanus toxoids and acellular pertussis vaccine, unspecified formulation Amanda ROMAN Work Phone: [facility] Work Phone: 05-30-2000 measles, mumps and rubella virus vaccine Amanda ROMAN Work Phone: [facility] 05-30-2000 poliovirus vaccine, inactivated Amanda ROMAN Work Phone: [facility] 03-30-2000 influenza, seasonal, injectable Amanda ROMAN Work Phone: [facility] 03-30-2000 influenza virus vaccine, unspecified formulation Amanda ROMAN Work Phone: [facility] 09-12-1998 haemophilus influenz ae type b vaccine, conjugate unspecified formulation Amanda ROMAN Work Phone: [facility] 11-28-1996 diphtheria, tetanus toxoids and acellular pertussis vaccine, unspecified formulation Amanda ROMAN Work Phone: [facility] 11-28-1996 haemophilus influenz ae type b vaccine, conjugate unspecified formulation Amanda Juan ABEL Work Phone: [facility] 11-28-1996 measles, mumps and rubella virus vaccine Amanda Martinez ABEL Work Phone: [facility] 10-27-1996 trivalent poliovirus vaccine, live, oral Amanda Juan ABEL Work Phone: [facility] 01-31-1996 DTP-Haemophilus influenzae type b conjugate vaccine Amanda Juan ABEL Work Phone: [facility] 01-31-1996 hepatitis B vaccine, pediatric or pediatric/adolescent dosage Amanda Martinez ABEL Work Phone: [facility] 01-31-1996 trivalent poliovirus vaccine, live, oral Amanda Juan ABEL Work Phone: [facility] 1995 DTP-Haemophilus influenzae type b conjugate vaccine Amanda White PA Work Phone: [facility] 1995 trivalent poliovirus vaccine, live, oral Amanda Juan ABEL Work Phone: [facility] 1995 DTP-Haemophilus influenzae type b conjugate vaccine Amanda Martinez ABEL Work Phone: [facility] 1995 hepatitis B vaccine, pediatric or pediatric/adolescent dosage Amanda Martinez ABEL Work Phone: [facility] 1995 haemophilus influenz ae type b vaccine, conjugate unspecified formulation Amanda ROMAN Work Phone: [facility] 1995 hepatitis B vaccine, pediatric or pediatric/adolescent dosage Amanda Juan ABEL Work Phone: [facility] Payers Date Payer Category [facility] [id number] 2023 Private Health Insurance [id number] 2022 Private Health Insurance [id number] 2022 Self-pay 2022 Unknown [id number] 1995 Unknown [id number] 2.16.84 [id number] 1995 Unknown [id number] 2.16.84 0.1.340222.3.579.2.593 1995 Unknown [id number] 2.16.84 0.1.133660.3.579.2.593 1995 Unknown [id number] 2.16.84 0.1.736004.3.579.2.593 1995 Unknown [id number] 2.16.840.1.638145.3.579.2.1259 1995 Unknown [id number] 2.16.840.1.653988.3.579.2.1258 1995 Unknown [id number] 2.16.840.1.439202.3.579.2.1258 1995 Unknown [id number] 2.16.840.1.696524.3.579.2.1258 1995 Unknown [id number] 2.16.840.1.073737.3.579.2.1258 1995 Unknown [id number] 2.16.840.1.360573.3.579.2.1258 1995 Unknown [id number] 2.16.840.1.342876.3.579.2.9 1995 Unknown [id number] 2.16.840.1.817113.3.579.2.1258 1995 Unknown [id number] 2.16.840.1.965494.3.579.2.1258 1995 Unknown [id number] 2.16.840.1.507618.3.579.2.1258 1995 Unknown [id number] 2.16.840.1.104614.3.579.2.1258 1995 Unknown [id number] 2.16.840 .1.762022.3.579.2.9 1959 Unknown [id number] 1959 Unknown [id number] 1959 Unknown [id number] Unknown [id number] 2.16.840.1.424301.3.579.2.531 Social History Date Type Detail Facility Tobacco smoking stat us KYIS Unknown if ever smoked [facility] Work Phone: Start: 1995 Sex Assigned At Female [facility] Start: 09-08-2023 End: 11-23-2023 Sex Assigned At [...] to any clubs or organizations such as hoahaoism groups, unions, fraternal or athletic groups, or [...] as female gender (finding) [facility] Start: 07-31-2023 Sexual orientation Heterosexual (finding) [facility] History of Present illness Narrative 02-20-2024 Lorene Duran, [employer] - 02/20/2024 9:50 AM EST Note Date & Type Note Facility 02-20-2024 History of Presen t illness Narrative Reason [...] nursing note reviewed. Exam conducted with a health nurse present. Vitals: Estimated body mass index is 37.68 kg/m as calculated from the following: Height as of 11/23/23: 5' 2 . Weight as of this encounter: 206 lb. BP: 122/80 Patient's last menstrual period was 07/27/2023. ASSESSMENT & PLAN ICD-10-CM 1. Third trimester Z34.93 Return OB: Patient presents today for a routine obstetrics appointment. Patient is currently 29w5d . Patient states she is doing well but has complaints of being tired due to current . Patient has verbalizes frequent movement. labor precautions was discussed/given and patient was instructed to perform kick counts three times a day. No orders of the defined types were placed in this encounter. Follow Up: Patient is to return to office in 2 week for routine OB appointment. Documented by Lorene Duran LPN on behalf of: Anai Burger DO documented in this encounter [facility] History [...] nursing note reviewed. Exam conducted with a health nurse present. Vitals: Estimated body mass index is [...] of: ABEL Carroll documented in this encounter [facility] Healthcare Evaluation note 05-11-2022 Note Date & [...] Instructed patient to wear brace for activities. [employer] Other Evaluation note Note Date & Type Note Facility Evaluation note No assessment information availa [facility] Work Phone: Evaluation note Note Date & Type Note Facility Evaluation note Diagnosis Encounter for follow-up ultrasound of anatomy Second trimester state, incidental 20 weeks gestation of documented in this encounter [facility] Evaluation note Note Date & Type Note Facility Evaluation note Diagnosis Diabetes mellitus screening Screening for diabetes mellitus Second trimester state, incidental 24 weeks gestation of documented in this encounter [facility] Evaluation note Note Date & Type Note Facility Evaluation note Diagnosis Third trimester state, incidental Excessive growth affecting management of , antepartum, single or unspecified fetus documented in this encounter [facility] History general Narrative - Reported Note Date & Type Note Facility History general Narrative - Reported Type Medical History learning disability Surgical History tymponostomy x7 [employer] Other Summary Purpose Family History No Family History Records FoundNo Family History Records FoundNo Family History Records Found Advance Directives No Advanced Directives Records FoundNo Advanced Directives Records FoundNo Advanced Directives Records Found Additional Source Comments INFORMATION SOURCE (unrecogn ized section and content) DATE CREATED AUTHOR 09/12/2021 [facility] DATE CREATED AUTHOR AUTHOR'S ORGANIZ ATION 05/21/2022 [facility] DATE CREATED AUTHOR AUTHOR'S ORGANIZ ATION 02/21/2024 [facility] [employer] Care Teams (unrecognized sec tion and content) Team Status: Inactive Member Role Status Dates Dee Buchanan MD Attending Provider Active Guard Range Relationship Specialty Start Date End Date Verito Lamb MD [address] [facility] [address] [place] [address] PCP - General Family Medicine 10/18/22 Guard Range Relationship Specialty Start Date End Date Verito Lamb MD [address] [facility] [address] [place] [address] PCP - General Family Medicine 10/18/22 Guard Range Relationship Specialty Start Date End Date Verito Lamb MD [address] [facility] [address] [place] [address] PCP - General Family Medicine 10/18/22 Goals [...] BE BASED ON THE PRIMARY CLINICAL RECORDS. [employer] provides no warranty or guarantee of the accuracy or completeness of information in this document.
[2024-03-02 13:19] LABS: INR 0.93; Partial Thromboplastin Time 23.9 sec (22.3-36.2); Prothrombin Time 9.9 sec (9.0-11.6)
[2024-03-02 13:22] LABS: Basophils Percent Auto 0.2 % (0.2-2.0); Eosinophils Absolute Auto 0.1 10^3/uL (0.0-0.7); Eosinophils Percent Auto 1.1 % (0.9-7.0); Hematocrit 37.8 % (36.0-48.0); Hemoglobin 12.7 g/dL (12.0-16.0); Immature Granulocytes Abs Auto 0.11 10^3/uL (0.00-0.03); Immature Granulocytes Pct Auto 0.9 % (0.0-0.5); Lymphocytes Absolute Auto 2.7 10^3/uL (1.2-3.8); Lymphocytes Percent Auto 21.1 % (20.5-60.0); Mean Corpuscular HGB Conc 33.6 g/dL (29.9-35.2); Mean Corpuscular Hemoglobin 29.3 pg (26.7-34.0); Mean Corpuscular Volume 87.1 fL (81.0-99.0); Mean Platelet Volume 10.7 fL (9.5-13.5); Monocytes Absolute Auto 0.7 10^3/uL (0.3-0.8); Monocytes Percent Auto 5.6 % (1.7-12.0); Neutrophils Absolute Auto 9.1 10^3/uL (1.4-6.5); Neutrophils Percent Auto 71.1 % (43.0-75.0); Platelet Count 226 10^3/uL (150-450); Red Blood Count 4.34 10^6/uL (4.20-5.40); Red Cell Distribution Width 13.1 % (11.0-15.0); White Blood Count 12.8 10^3/uL (4.0-11.0)
[2024-03-02 14:01] LABS: Aspartate Amino Transferase 10 U/L (15-37); Estimated GFR (African America >60 (>=60 mL/min/1.73m^2); Estimated GFR (Non-African Ame >60 (>=60 mL/min/1.73m^2); Lactate Dehydrogenase 133 U/L (81-234); Uric Acid 5.1 mg/dL (2.6-6.0)
== END 2024-03-02 12:37 | disposition home or self-care (01) ==
LOC: LAB 12:37
PROVIDERS: PCP Family Medicine; Visit Provider Physician Assistant
DX: O13.9 Gestational [pregnancy-induced] hypertension without significant proteinuria, unspecified trimester (principal)
CPT/HCPCS: 36415; 82565; 83615; 84450; 84520; 84550; 85025; 85610; 85730

== ENCOUNTER 2024-03-05 09:06 | Outpatient (OUT) | payer OTHER, SELFPAY ==
--- NOTE | 2024-03-05 09:08 | US_ITS ---
[address] [address] Patient Name: ELIZABETH MOLINA MRN: [id number] date: 1995 Sex: F Assigned Patient Location: [facility] Current Patient Location: [facility] Accession/Order Number: [id number] Exam Date: 03/05/2024 09:09 Report Date: 03/05/2024 09:38 At the request of: ANAI AMADO Procedure: US OB growth EXAMINATION: US OB growth HISTORY: Excessive growth O36.60X0 COMPARISON: No relevant comparison available. TECHNIQUE: Transabdominal sonographic examination was performed for obstetrical and evaluation. FINDINGS: Number: 1 Heart Rate: 144 bpm H.B. /min Amniotic Fluid Volume: 10.7 cm, largest fluid pocket 3.6 cm position: Cephalic presentation, longitudinal lie BIOMETRY: BPD: 7.77 cm; 31 weeks 1 day; 24.50 % HC: 30.07 cm; 33 weeks 2 days; 58 % AC: 26.88 cm; 31 weeks 0 days; 26.50 % FL: 5.91 cm; 30 weeks 6 days; 15.70 % EFW:1676.73 g; 22.80 %, 3 lbs. 12 oz. FL/AC: 21.99 FL/BPD: 76.06 HC/AC: 1.12 GESTATIONAL AGE: Age by EDC: 31 weeks 5 days ABDIRIZAK by EDC: 2024-05-02 Age by current US: 31 weeks 4 days ABDIRIZAK by current US: 2024-05-03 US/US OB growth IMPRESSION: Normal interval growth *Reference: [facility] Practice Guideline for the performance of Obstetric Ultrasound Examinations, December 19, 2006. Electronically authenticated by: ZURI PHOENIX Date: 03/05/2024 09:38
--- OUTSIDE RECORDS SUMMARY | 2024-03-05 09:30 | XMS_ITS | CCD ---
Author Organization [facility] Care Team Providers Care Crank Hand Name Role Phone JENNYFER, DR OSPINA Admitting [...] Unavailable Verito Lamb MD Primary Care Provider [phone] LORENE PLASENCIA Attending Unavailable LORENE PLASENCIA Attending Unavailable LORENE PLASENCIA Attending Unavailable SANGEETHA GRAY Attending Unavailable AMANDA MARTINEZ Attending Unavailable ANAI BURGER Attending Unavailable ANAI BURGER Attending Unavailable LORENE PLASENCIA Attending Unavailable AMANDA MARTINEZ Attending Unavailable AMANDA MARTINEZ Attending Unavailable AANI BURGER Attending Unavailable AMANDA MARTINEZ Attending Unavailable Allergies Allergy Classification Reported Allergen(s) Allergy Type Date of Onset Reaction(s) Facility (1 source) Cephalexin Drug Allergy [facility] Repository (14 sources) ARIPiprazole Drug Allergy 3 [facility] Work Phone: (14 sources) cariprazine Drug Allergy 3 [facility] (14 sources) Cephalexin Drug Allergy 3 Unknown [facility] (14 sources) Propofol Drug Allergy 3 Unknown [facility] (14 sources) Flavoring Agent Allergy to substance 3 Unknown [facility] (14 sources) Mosquito (Diagnostic) Drug Allergy 3 Unknown [facility] Medications Current Medications Medication Drug Class(es) Dates Sig (Normalized) Sig (Original) buPROPion hydrochloride 100 mg oral tablet (1 source) Aminoketone take 1 tablet by mouth every twelve hours buPROPion HCl 100 MG 1 tablet Orally Twice a day Active cetirizine hydrochloride 10 mg oral tablet (14 sources) Histamine-1 Receptor Antagonist take 1 tablet by mouth once daily cetirizine (ZyrTEC) 10 MG tablet Take 10 mg by mouth Daily Active fluticasone propionate 0.05 mg/actuat metered dose nasal spray (14 sources) Corticosteroid take 1 spray(s) nasal route once daily as needed fluticasone (Flonase) 50 MCG/ACT nasal spray Administer 1 spray into each nostril Daily Shake gently. Before first use, prime pump. After use, clean tip and replace cap. PRN Active labetalol hydrochloride 100 mg oral tablet (3 sources) beta-Adrenergic Adina Start: 03-01-2024 End: 03-01-2025 take 1 tablet by mouth in the morning labetalol (Normodyne) 100 MG tablet Indications: Hypertension affecting in third trimester Take 1 tablet (100 mg) by mouth in the morning and 1 tablet (100 mg) before bedtime. 60 tablet 11 03/01/2024 03/01/2025 Active MV & Min w/FA-DHA ([facility] PO) (14 sources) take 1 tablet by mouth once daily MV & Min w/FA-DHA ([facility] PO) Take 1 tablet by mouth 1 (one) time each day Active 24 hr venlafaxine 37.5 mg extended release oral capsule (14 sources) Serotonin and Norepinephrine Reuptake Inhibitor Start: 11-23-2023 End: 11-22-2024 take 1 capsule by mouth once daily venlafaxine XR (Effexor XR) 37.5 MG 24 hr capsule Indications: Mood disorder (CMS/HCC) Take 1 capsule (37.5 mg) by mouth Daily Do not crush or chew. 30 capsule 11 11/23/2023 11/22/2024 Active Completed/Discontinued Medications Medication Drug Class(es) Dates Sig (Normalized) Sig (Original) busPIRone hydrochloride 15 mg oral tablet (13 sources) Start: 11-23-2023 End: 03-01-2024 take 1 tablet by mouth once daily busPIRone (Buspar) 15 MG tablet Indications: Generalized anxiety disorder (CMS/HCC) Take 1 tablet (15 mg) by mouth Daily 11/23/2023 03/01/2024 Discontinued triamcinolone acetonide 40 mg/ml injectable suspension (1 source) Corticosteroid Start: 05-11-2022 Kenalog-40 Apr, 20 mg Problems Active Problems Problem Classification Problem Date Documented Date Episodic/Chronic Allergic reactions (14 sources) Atopic dermatitis; Translations: [Atopic dermatitis, unspecified] Onset: 08-18-2022 08-18-2022 Chronic Anxiety disorders (14 sources) Generalized anxiety disorder; Translations: [Generalized anxiety disorder] Onset: 03-23-2023 03-23-2023 Chronic Conditions associated with dizziness or vertigo (4 sources) Lightheadedness; Translations: [Dizziness and giddiness] 03-01-2024 Episodic Esophageal disorders (14 sources) Gastroesophageal reflux disease without esophagitis; Translations: [Gastro-esophageal reflux disease without esophagitis] Onset: 08-18-2022 08-18-2022 Chronic Hypertension complicating ; childbirth and the puerperium (2 sources) Hypertension complicating ; Translations: [Unspecified maternal hypertension, third trimester] 03-01-2024 Chronic Hypertension complicating ; childbirth and the puerperium (2 sources) -induced hypertension; Translations: [Gestational [-induced] hypertension without significant proteinuria, unspecified trimester] 03-01-2024 Episodic Immunizations and screening for infectious disease (1 source) Encounter for screening for human papillomavirus (HPV); Translations: [ENC SCREENING HUMAN PAPILLOMAVIRUS] Onset: 08-13-2021 Episodic Mood disorders (14 sources) Moderately severe depression; Translations: [Moderately severe [...] Episodic Other nutritional; endocrine; and metabolic disorders (14 sources) Body mass index 30+ - obesity; Translations: [Obesity, unspecified] Onset: 08-18-2022 08-18-2022 Chronic Other and delivery including normal (8 sources) Second trimester ; Translations: [Encounter for supervision of normal , unspecified, second trimester] 12-20-2023 Episodic Other screening for suspected conditions (not mental disorders or infectious disease) (8 sources) Encounter for screening for malignant neoplasm of cervix; Translations: [Patient encounter status] Onset: 08-10-2021 Episodic Other upper respiratory disease (14 sources) Seasonal allergic rhinitis; Translations: [Other seasonal allergic rhinitis] Onset: 08-18-2022 08-18-2022 Chronic Residual codes; unclassified (2 sources) Gestation period, 20 weeks; Translations: [20 weeks gestation of ] 12-20-2023 Episodic Residual codes; unclassified (2 sources) Gestation period, 24 weeks; Translations: [24 weeks gestation of ] 01-17-2024 Episodic Residual codes; unclassified (2 sources) Gestation period, 31 weeks; Translations: [31 weeks gestation of ] 03-01-2024 Episodic Unclassified (1 source) Pain in left wrist; Translations: [Pain in left wrist] Onset: 05-11-2022 Viral infection (1 source) COVID-19; Translations: [COVID-19] Onset: 12-17-2020 Past or Other Problems Problem Classification Problem Date Documented Da te Episodic/Chronic Nausea and vomiting (4 sources) Nausea with vomiting, unspecified; Translations: [NAUSEA WITH VOMITING UNSPECIFIED] Onset: 12-08-2020 Episodic Other connective tissue disease (14 sources) Ganglion cyst of left dorsal wrist; Translations: [Ganglion, left wrist] Onset: 08-18-2022 08-18-2022 Episodic Other lower respiratory disease (3 sources) Cough; Translations: [COUGH] Onset: 12-03-2020 Episodic Other upper respiratory disease (14 sources) Allergic rhinitis; Translations: [Allergic rhinitis, unspecified] Onset: 08-18-2022 Resolved: 01-05-2023 01-05-2023 Chronic Other upper respiratory infections (14 sources) Sinusitis; Translations: [Chronic sinusitis, unspecified] Onset: 08-18-2022 Resolved: 01-05-2023 01-05-2023 Chronic Otitis media and related conditions (20 sources) Dysfunction of eustachian tube; Translations: [Unspecified Eustachian tube disorder, unspecified ear] Onset: 08-18-2022 08-18-2022 Episodic Viral infection (14 sources) COVID-19; Translations: [Other specified viral infection] Onset: 08-18-2022 08-18-2022 Episodic Results Test Name Value Interpretation Reference Range Facility CC APTTon 03-02-2024 aPTT Coag (Bld) [Time] 23.9 s [facility] No Panel Informationon 03-02 [facility] SRMCOH PROTHROMBIN TIME INR W/O COUMon 03-02-2024 PT Coag (PPP) [Time] 9.9 s [facility] TBH INR 0.93 [facility] Comment on above: DESIRED INR: 2.0-3.0 CONDITIONS NOT LISTED BELOW 2.5-3.5 FOR PROSTHETIC HEART VALVE REPLACEMENT 2.5-3.5 RECURRENT THROMBOSIS Urinalysis macro (dipstick) panel (U)on 03-01-2024 Bilirubin, UA Negative Negative - 4(70) +++ mg/dL [facility] Blood, UA Negative Negative - 50 [place]/mcL [facility] Clarity, UA Clear [facility] re Color, UA Yellow [facility] e Glucose, UA Negative Negative - 2000(110) ++++ mg/dL [facility] Interpretation and review of laboratory results Abnormal [facility] re Ketones, UA Negative Negative - 160(16) ++++ mg/dL [facility] Leukocytes, UA Positive Negative - 500+++ Virgie/mcL [facility] Comment on above: small Nitrite, UA Negative Negative - Positive [facility] pH, UA 7 5 - 9 [facility] e Protein, UA Trace Negative - 1999(20) ++++ mg/dL [facility] Healthcare Spec Grav, UA 1.02 1 - 1.03 [facility] care Urobilinogen, UA 0.2 0.2 - 12 mg/dL [facility] Healthcare [facility] GLUCOSE 1 HOURon 01-25-2024 Glucose [Mass/Vol] 131 mg/dL High NINF - 13 0 mg/dL [facility] Interpretation and review of laboratory results Abnormal [facility] Urinalysis macro (dipstick) panel (U)on 01-17-2024 Bilirubin, UA Negative Negative - 4(70) +++ mg/dL [facility] Healthcare Blood, UA Negative Negative - 50 [place]/mcL [facility] Clarity, UA Clear [facility] Color, UA Yellow [facility] Glucose, UA Negative Negative - 1999(110) ++++ mg/dL [facility] Interpretation and review of laboratory results Abnormal [facility] Ketones, UA Negative Negative - 160(16) ++++ mg/dL [facility] Leukocytes, UA Trace Negative - 500+++ Virgie/mcL [facility] Healthcare Nitrite, UA Negative Negative - Positive [facility] pH, UA 6 5 - 9 [facility] Protein, UA Negative Negative - 1999(20) ++++ mg/dL [facility] Spec Grav, UA 1.02 1 - 1.03 [facility] Health care Urobilinogen, UA 1.0 0.2 - 12 mg/dL [facility] Urinalysis macro (dipstick) panel (U)on 12-20-2023 Bilirubin, UA Negative Negative - 4(70) +++ mg/dL [facility] Blood, UA Negative Negative - 50 [place]/mcL [facility] Clarity, UA Clear [facility] Color, UA Yellow [facility] Glucose, UA Negative Negative - 1999(110) ++++ mg/dL [facility] Interpretation and review of laboratory results Abnormal [facility] Ketones, UA Negative Negative - 160(16) ++++ mg/dL [facility] Healthcare Leukocytes, UA Trace Negative - 500+++ Virgie/mcL [facility] Healthcare Nitrite, UA Negative Negative - Positive [facility] pH, UA 6.5 5 - 9 [facility] Protein, UA Negative Negative - 1999(20) ++++ mg/dL [facility] Spec Grav, UA 1.025 1 - 1.03 [facility] Urobilinogen, UA 0.2 0.2 - 12 mg/dL [facility] e XR wrist LT min 3V*on 2022 XR wrist LT min 3V* [place] [address] XRay Report Signed Patient: Nazia Harper MR#: [id number] [birth year] : 1995 Acct:[id number] Age/Sex: 26 / F ADM Date: 05/11/22 Loc: [facility] Room: Type: [facility] Attending Dr: Dee Buchanan MD Copies [...] Travis Jr., D.O.05/11/2022 12:18 PM Dictation Location: [place] [address] Transcribed By: [facility] 05/11/22 1218 Dictated By: Tan Travis Jr, DO 05/11/22 1217 Signed By: 05/11/22 1218 Normal [facility] XR wrist LT min 3V* [facility] [employer] Other XR wrist LT min 3V* [facility] [employer] Other XR wrist LT min 3V* [address] [facility] [employer] Other XR wrist LT min 3V* [place], [place] [id number] [place] [address] [employer] Other XR wrist LT min 3V* XRay Report [employer] Other XR wrist LT min 3V* Signed [employer] Other XR wrist LT min 3V* Patient: Nazia Harper MR#: [id number] [employer] Other XR wrist LT min 3V* 67 [employer] Other XR wrist LT min 3V* : 1995 Acct:[id number] [employer] Other XR wrist LT min 3V* Age/Sex: 26 / F ADM Date: 05/11/22 [employer] Other XR wrist LT min 3V* Loc: [facility] Room: Type: [facility] [employer] Other XR wrist LT min 3V* Attending Dr: Dee Buchanan MD [employer] Other XR wrist LT min 3V* Copies to: Dee Buchanan MD [employer] Other XR wrist LT min 3V* Ordering Provider: Dee Buchanan MD [employer] Other XR wrist LT min 3V* Date of Service: 05/11/22 [employer] Other XR wrist LT min 3V* XR/XR wrist LT min 3V*: PAIN [employer] Other XR wrist LT min 3V* LEFT WRIST - 4 views [employer] Other XR wrist LT min 3V* CLINICAL HISTORY: Ganglion cyst posterior aspect at the level of the carpals. [employer] Other XR wrist LT min 3V* COMPARISON: None [employer] Other XR wrist LT min 3V* FINDINGS: [employer] Other XR wrist LT min 3V* No focal soft tissue abnormality is noted. No acute bony process is seen. Carpal bones appear [employer] Other XR wrist LT min 3V* unremarkable. [employer] Other XR wrist LT min 3V* XR/XR wrist LT min 3V* [employer] Other XR wrist LT min 3V* IMPRESSION: [employer] Other XR wrist LT min 3V* NO ACUTE BONY PROCESS. [employer] Other XR wrist LT min 3V* Impression dictated by: Tan Travis Jr., GwenOJuanis05/11/2022 12:18 PM [employer] Other XR wrist LT min 3V* Dictation Location: [place] [address] [employer] Other XR wrist LT min 3V* Transcribed By: PWS 05/11/22 [facility] [employer] Other XR wrist LT min 3V* Dictated By: Tan Travis Jr DO 05/11/22 [facility] [employer] Other XR wrist LT min 3V* Signed By: [employer] Other XR wrist LT min 3V* 05/11/22 [facility] [employer] Other PAP ACOG PANEL 2: 21 to 29on 08-15-2021 . . Normal [facility] Comment on above: Result Comment: Perf ormed at: BA Performed By: #### [id number] #### [facility] [address] [place] [address] Dr. Alek Fu Age Gdln ACOG Testing - Normal [facility] Comment on above: Performed By: #### [id number] #### [facility] [address] [address] [address] Alek Fu DIAGNOSIS: Comment [facility] Comment on above: Result Comment: NEGA TIVE FOR INTRAEPITHELIAL LESION OR MALIGNANCY. Performed at: BA Performed By: #### [id number] #### [facility] [address] [address] [address] Alek Fu Methodology: Comment Normal [facility] Comment on above: Result Comment: This liquid based ThinPrep(R) pap test was screened with the use of an image guided system. Performed at: WB Performed By: #### [id number] #### [facility] [address] [place] [address] Dr. Alek Fu Note: Comment Normal [facility] Comment on above: Result Comment: The Pap smear is a screening test designed to aid in the detection of premalignant and malignant conditions of the uterine cervix. It is not a diagnostic procedure and should not be used as the sole means of detecting cervical cancer. Both false-positive and false-negative reports do occur. . Performed at: WB Performed By: #### [id number] #### [facility] [address] [place] [address] Dr. Alek Fu Performed by: Comment Normal [facility] Comment on above: Result Comment: Elen Carrillo, Cma (ASCP) Performed at: BA Performed By: #### [id number] #### [facility] [address] [place] [address] Dr. Alek Fu Reflex Criteria: Comment Normal [facility] Comment on above: Result Comment: The HPV DNA reflex criteria were not met with this specimen result therefore, no HPV testing was performed. . Performed at: BA Performed By: #### [id number] #### [facility] [address] [place] [address] Dr. Alek Fu Specimen adequacy: Comment Normal [facility] Comment on above: Result Comment: Sati sfactory for evaluation. Endocervical and/or squamous metaplastic cells (endocervical component) are present. Performed at: BA Performed By: #### [id number] #### [facility] [address] [place] [address] Dr. Alek Fu XR KNEE SABRINA 4V [...] ZURI PHOENIX Date: 2021-07-17 17:09 Normal [facility] CBC AUTO DIFFon 12-08-2020 BASO # 0.0 103/ul Normal 0.0-0.1 [facility] Comment on above: Performed By: #### C BC #### [facility] [address] [place] [address] Dr. Alek Fu Basophils/100 WBC (Bld) 0.2 % Normal 0.2-2.0 [facility] Comment on above: Performed By: #### C BC #### [facility] [address] [place] [address] Dr. Alek Fu EO # 0.0 103/ul Normal 0.0-0.7 [facility] Comment on above: Performed By: #### C BC #### [facility] [address] [place] [address] Dr. Alek Fu Eosinophils/100 WBC (Bld) 0.6 % Critically low 0.9-7.0 [facility] Comment on above: Performed By: #### C BC #### [facility] [address] [place] [address] Dr. Alek Fu Erythrocyte distribution width (RBC) [Ratio] 12.4 % Normal 11.0-15.0 [facility] Comment on above: Performed By: #### C BC #### [facility] [address] [place] [address] Dr. Alek Fu Hematocrit (Bld) [Volume fraction] 44.3 % Normal 36.0-48.0 [facility] Comment on above: Performed By: #### C BC #### [facility] [address] [place] [address] Dr. Alek Fu Hemoglobin (Bld) [Mass/Vol] 15.4 g/dL Normal 12.0-16.0 [facility] Comment on above: Performed By: #### C BC #### [facility] [address] [address] [address] Alek Fu IG # 0.04 10e3/ul Critically high 0.00-0.03 [facility] Comment on above: Performed By: #### C BC #### [facility] [address] [address] [address] Alek Fu IG % 0.6 % Critically high 0.0-0.5 [facility] Comment on above: Performed By: #### C BC #### [facility] [address] [place] [address] Dr. Alek Fu LYMPH # 3.2 103/ul Normal 1.2-3.8 [facility] Comment on above: Performed By: #### C BC #### [facility] [address] [place] [address] Dr. Alek Fu Lymphocytes/100 WBC (Bld) 50.2 % Normal 20.5-60.0 [facility] Comment on above: Performed By: #### C BC #### [facility] [address] [place] [address] Dr. Alek Fu MANUAL DIFF REQ NO Normal [facility] Comment on above: Performed By: #### C BC #### [facility] [address] [place] [address] Dr. Alek Fu MCH (RBC) [Entitic mass] 28.7 pg Normal 26.7-34.0 [facility] Comment on above: Performed By: #### C BC #### [facility] [address] [place] [address] Dr. Alek Fu MCHC (RBC) [Mass/Vol] 34.8 g/dL Normal 29.9-35.2 [facility] Comment on above: Performed By: #### C BC #### [facility] [address] [place] [address] Dr. Alek Fu MCV (RBC) [Entitic vol] 82.5 fL Normal 81.0-99.0 [facility] Comment on above: Performed By: #### C BC #### [facility] [address] [place] [address] Dr. Alek Fu MONO # 0.6 103/ul Normal 0.3-0.8 [facility] Comment on above: Performed By: #### C BC #### [facility] [address] [place] [address] Dr. Alek Fu Monocytes/100 WBC (Bld) 10.0 % Normal 1.7-12.0 [facility] Comment on above: Performed By: #### C BC #### [facility] [address] [place] [address] Dr. Alek Fu NEUT # 2.4 103/ul Normal 1.4-6.5 [facility] Comment on above: Performed By: #### C BC #### [facility] [address] [place] [address] Dr. Alek Fu Neutrophils/100 WBC (Bld) 38.4 % Critically low 43.0-75.0 [facility] Comment on above: Performed By: #### C BC #### [facility] [address] [place] [address] Dr. Aelk Fu Platelet mean volume (Bld) [Entitic vol] 9.9 fL Normal 9.5-13.5 [facility] Comment on above: Performed By: #### C BC #### [facility] [address] [place] [address] Dr. Alek Fu PLT 206 103/ul Normal 150-450 [facility] Comment on above: Performed By: #### C BC #### [facility] [address] [place] [address] Dr. Alek Fu RBC 5.37 106/ul Normal 4.20-5.40 [facility] Comment on above: Performed By: #### C BC #### [facility] [address] [place] [address] Dr. Alek Fu WBC 6.3 103/ul Normal 4.0-11.0 [facility] Comment on above: Performed By: #### C BC #### [facility] [address] [place] [address] Dr. Alek Fu ER URINE PROFILEon 1 Bilirubin Ql (U) Negative Normal NEGATIVE [facility] Comment on above: Performed By: #### E RUR #### [facility] [address] [place] [address] Dr. Alek Fu Clarity (U) CLEAR Normal CLEAR [facility] Comment on above: Performed By: #### E RUR #### [facility] [address] [place] [address] Dr. Alek Fu Color (U) YELLOW Normal YELLOW [facility] Comment on above: Performed By: #### E RUR #### [facility] [address] [place] [address] Dr. Alek Fu ERUVALENTINA A micrscopic examination will be performed if indicated. Normal [facility] Comment on above: Performed By: #### E RUR #### [facility] [address] [place] [address] Dr. Alek Fu Glucose Ql (U) Negative Normal NEGATIVE [facility] Comment on above: Performed By: #### E RUR #### [facility] [address] [place] [address] Dr. Alek Fu Hemoglobin Ql (U) TRACE-INTACT Abnormal NEGATIVE [facility] Comment on above: Performed By: #### E RUR #### [facility] [address] [place] [address] Dr. Alek Fu Ketones Ql (U) TRACE Abnormal NEGATIVE [facility] Comment on above: Performed By: #### E RUR #### [facility] [address] [place] [address] Dr. Alek Fu LEUKOCYTES Negative Normal NEGATIVE [facility] Comment on above: Performed By: #### E RUR #### [facility] [address] [place] [address] Dr. Alek Fu Nitrite Ql (U) Negative Normal NEGATIVE [facility] Comment on above: Performed By: #### E RUR #### [facility] [address] [place] [address] Dr. Alek Fu pH (U) 6.0 [pH] Normal 5-9 [facility] Comment on above: Performed By: #### E RUR #### [facility] [address] [place] [address] Dr. Alek Fu SPEC GRAVITY 1.015 Normal 1.005-<=1.025 [facility] Comment on above: Performed By: #### E RUR #### [facility] [address] [place] [address] Dr. Alek Fu UA PROTEIN Negative Normal NEGATIVE/ TRACE [facility] Comment on above: Performed By: #### E RUR #### [facility] [address] [place] [address] Dr. Alek Fu UR MICRO IND NOT INDICATED Normal [facility] Comment on above: Performed By: #### E RUR #### [facility] [facility] [address] [place] [address] Dr. Alek Fu Urobilinogen Qn (U) 0.2 {Roya'U}/dL Normal 0.2 - 1.0 [facility] Comment on above: Performed By: #### E RUR #### [facility] [address] [place] [address] Dr. Alek Fu URon 12-08-2020 , QUAL Negative Normal NEGATIVE [facility] Comment on above: Performed By: #### P REGU #### [facility] [address] [place] [address] Dr. Alek Fu PROF CHEM 8 (BAS METB)on Anion gap [Moles/Vol] 13.0 mmol/L Normal [facility] Comment on above: Performed By: #### B MP #### [facility] [address] [place] [address] Dr. Alek Fu Calcium [Mass/Vol] 9.0 mg/dL Normal 8.4-10.2 [facility] Comment on above: Performed By: #### B MP #### [facility] [address] [place] [address] Dr. Alek Fu Chloride [Moles/Vol] 103 mmol/L Normal 98-107 [facility] Comment on above: Performed By: #### B MP #### [facility] [address] [address] [address] Alek Fu CO2 [Moles/Vol] 25.0 mmol/L Normal 22.0-30.0 [facility] Comment on above: Performed By: #### B MP #### [facility] [address] [address] [address] Alek Fu Creatinine [Mass/Vol] 0.96 mg/dL Normal 0.52-1.04 [facility] Comment on above: Performed By: #### B MP #### [facility] [address] [address] [address] Alek Fu EGFR-AF GUATEMALAN >60 Normal >=60 [facility] Comment on above: Performed By: #### B MP #### [facility] [address] [place] [address] Dr. Alek Fu EGFR-NON AF GUATEMALAN >60 Normal >=60 [facility] Comment on above: Performed By: #### B MP #### [facility] [address] [address] [address] Alek Fu Glucose [Mass/Vol] 99 mg/dL Normal 74-106 [facility] Comment on above: Performed By: #### B MP #### [facility] [address] [place] [address] Dr. Alek Fu Potassium [Moles/Vol] 3.0 mmol/L Critically low 3.4-5.0 [facility] Comment on above: Performed By: #### B MP #### [facility] [address] [place] [address] Dr. Alek Fu Sodium [Moles/Vol] 138 mmol/L Normal 137-145 [facility] Comment on above: Performed By: #### B MP #### [facility] [address] [address] [address] Alek Fu Urea nitrogen [Mass/Vol] 11.0 mg/dL Normal 7.0-17.0 [facility] Comment on above: Performed By: #### B MP #### [facility] [address] [address] [address] Alek Fu Urea nitrogen/Creatinin e [Mass ratio] 11.5 mg/mg Normal [facility] Comment on above: Performed By: #### B #### [facility] [address] [place] [address] Dr. Alek Fu Covid-19 PCR ([facility])on 11-19 SARS-CoV-2 (COVID-19) RNA SANTANA+probe Ql (Unsp spec) Detected Critically abnormal NOT DETECTED [facility] Comment on above: Result Comment: This test is not yet approved or cleared by the [place] FDA. When there are no FDA-approved or cleared tests available, and other criteria are met, FDA can make tests available under an emergency access mechanism called an Emergency Use Authorization (EUA). The EUA for this test is supported by the Blind [employer] Operator of Health and Human Service's (HHS's) declaration [...] longer be used). Performed By: #### [facility] #### [facility] [address] [place] [address] Dr. Alek Fu Vital Signs Date Time Vital Sign Value Performing Clinician Faci kavony 03-01-2024 11:46-0500 Body mass index (BMI) [Ratio] 37.57 kg/m2 Amanda ROMAN Work Phone: [facility] 03-01-2024 11:46-0500 Body weight 93.17 kg Amanda ROMAN Work Phone: [facility] 03-01-2024 11:46-0500 Diastolic blood pressure 90 mm[Hg] Amanda ROMAN Work Phone: [facility] 03-01-2024 11:46-0500 Systolic blood pressure 130 mm[Hg] Amanda ROMAN Work Phone: [facility] 02-20-2024 10:07-0500 Body mass index (BMI) [Ratio] 37.68 kg/m2 Anai Jennyfer DO Work Phone: [facility] 02-20-2024 10:07-0500 Body weight 93.44 kg Anai Jennyfer DO Work Phone: [facility] 02-20-2024 10:07-0500 Diastolic blood pressure 80 mm[Hg] Anai Jennyfer DO Work Phone: [facility] 02-20-2024 10:07-0500 Systolic blood pressure 122 mm[Hg] Anai Jennyfer DO Work Phone: [facility] 01-17-2024 10:15-0400 Body mass index (BMI) [Ratio] 36 kg/m2 Amanda Juan PA Work Phone: [facility] 01-17-2024 10:15-0400 Body weight 89.27 kg Amanda Juan PA Work Phone: [facility] 01-17-2024 10:15-0400 Diastolic blood pressure 70 mm[Hg] Amanda Juan PA Work Phone: [facility] 01-17-2024 10:15-0400 Systolic blood pressure 122 mm[Hg] Amanda Belmont PA Work Phone: [facility] 12-20-2023 09:58-0400 Body mass index (BMI) [Ratio] 34.93 kg/m2 Amanda Juan PA Work Phone: [facility] 12-20-2023 09:58-0400 Body weight 86.64 kg Amanda Belmont PA Work Phone: [facility] 12-20-2023 09:58-0400 Diastolic blood pressure 76 mm[Hg] Amanda Juan PA Work Phone: [facility] 12-20-2023 09:58-0400 Systolic blood pressure 124 mm[Hg] Amanda Juan PA Work Phone: [facility] Encounters Encounter Date Encounter Type Care Provider Facility Start: 03-02-2024 End: 03-02-2024 Clinisync Result Encounter Generic External Data Provider [facility] Unsolicited Start: 03-02-2024 End: 03-02-2024 Clinisync Result Encounter Generic External Data Provider [facility] Unsolicited Start: 03-01-2024 End: 03-01-2024 Bamboo flowsheet Amanda ROMAN Work Phone: [facility] Start: 03-01-2024 End: 03-01-2024 Bamboo flowsheet Amanda ORMAN Work Phone: [facility] Start: 03-01-2024 End: 03-01-2024 ambulatory AMANDA MARTINEZ Not Available Start: 03-01-2024 End: 03-01-2024 flow sheet Amanda ROMAN Work Phone: [facility] Comment on above: 31 weeks gestation o f ; Third trimester ; induced hypertension, antepartum; Hypertension affecting in third trimester; Lightheadedness; Dizziness Start: 02-20-2024 End: 02-20-2024 Bamboo flowsheet Anai Jennyfer DO Work Phone: [facility] Start: 02-20-2024 End: 02-20-2024 Bamboo flowsheet Anai Jennyfer DO Work Phone: [facility] Start: 02-20-2024 End: 02-20-2024 flow sheet Anai Jennyfer DO Work Phone: [facility] Comment on above: Third trimester [...] 01-17-2024 Bamboo flowsheet Amanda ROMAN Work Phone: [facility] Start: 01-17-2024 End: 01-17-2024 Bamboo flowsheet Amanda ROMAN Work Phone: [facility] Start: 01-17-2024 End: 01-17-2024 flow sheet Amanda ROMAN Work Phone: [facility] Comment on above: Diabetes mellitus sc reening; Second trimester ; 24 weeks gestation of Start: 01-17-2024 End: 01-17-2024 ambulatory AMANDA MARTINEZ Not Available Start: 12-20-2023 End: 12-20-2023 Bamboo flowsheet Amanda Martinez PA Work Phone: [facility] Start: 12-20-2023 End: 12-20-2023 Bamboo flowsheet Amanda Martinez PA Work Phone: [facility] Start: 12-20-2023 End: 12-20-2023 flow sheet Amanda ROMAN Work Phone: [facility] Comment on above: Encounter for [...] Office outpatient ne w 45 minutes Dee Buchanan [facility] Start: 05-11-2022 End: 05-11-2022 ambulatory Dee Buchanan Facility:[facility] Start: 05-11-2022 End: 05-11-2022 ambulatory MD Dee Buchanan Work Phone: [facility] Work Phone: Start: 05-11-2022 End: 05-11-2022 Patient encounter procedure MD Dee Buchanan Work Phone: [facility] Start: 08-10-2021 End: 08-10-[address] ANAI BURGER Facility:[facility] Start: 07-17-2021 End: 07-18-[address] LORENE PLASENCIA Facility:[facility] Start: 12-08-2020 End: 12-08-[address] VERITO LAMB Facility:[facility] Start: 12-03-2020 End: 12-03-[address] VERITO LAMB Facility:[facility] Procedures Date Procedure Procedure Detail Performing Clinician Start: 03-02-2024 [facility] APTT Amanda ROMAN Work Phone: Start: 03-02-2024 SRMCOH PROTHROMBIN T ASHLEY INR W/O COUM Amanda ROMAN Work Phone: Start: 03-01-2024 Urnls dip stick/tabl et rgnt non-auto w/o micrscp Amanda ROMAN Work Phone: Start: 01-25-2024 GLUCOSE 1 HOUR Amanda Ayala [...] AM EST Routine [facility] [address] [place] [id number] Amanda Martinez PA [address] [place] [address] [facility] Start: 03-05-2024 End: 03-05-2024 Professional / ancillary services management 03/05/2024 9:00 AM EST Ancillary Procedure [facility] [address] [place] [address] [facility] Start: 03-01-2024 End: 03-01-2025 Alanine aminotransferase [Enzymatic activity/volume] in Serum or Plasma ALT Lab Routine induced hypertension, antepartum Expected: 03/01/2024 (Approximate), Expires: 03/01/2025 [facility] Comment on above: Expected: 03/01/2024 (Approximate), Expires: 03/01/2025 Start: 03-01-2024 End: 03-01-2025 Aspartate aminotransferase [Enzymatic activity/volume] in Serum or Plasma AST Lab Routine induced hypertension, antepartum Expected: 03/01/2024 (Approximate), Expires: 03/01/2025 [facility] Comment on above: Expected: 03/01/2024 (Approximate), Expires: 03/01/2025 Start: 03-01-2024 End: 03-01-2025 CBC W Auto Differential panel - Blood CBC and differential Lab Routine induced hypertension, antepartum Expected: 03/01/2024 (Approximate), Expires: 03/01/2025 [facility] Comment on above: Expected: 03/01/2024 (Approximate), Expires: 03/01/2025 Start: 03-01-2024 End: 03-01-2025 Creatinine [Mass/volume] in Serum or Plasma Creatinine Lab Routine induced hypertension, antepartum Expected: 03/01/2024 (Approximate), Expires: 03/01/2025 [facility] Work Phone: Comment on above: Expected: 03/01/2024 (Approximate), Expires: 03/01/2025 Start: 03-01-2024 End: 03-01-2025 Lactate dehydrogenase [Enzymatic activity/volume] in Serum or Plasma by Lactate to pyruvate reaction Lactate dehydrogenase Lab Routine induced hypertension, antepartum Expected: 03/01/2024, Expires: 03/01/2025 [facility] Comment on above: Expected: 03/01/2024 , Expires: 03/01/2025 Start: 03-01-2024 End: 03-01-2025 Protein, urine, 24 hour Protein, urine, 24 hour Lab Routine induced hypertension, antepartum Expected: 03/01/2024 (Approximate), Expires: 03/01/2025 [facility] Comment on above: Expected: 03/01/2024 (Approximate), Expires: 03/01/2025 Start: 03-01-2024 End: 03-01-2025 Pt and ptt Pt and ptt Lab Routine induced hypertension, antepartum Expected: 03/01/2024, Expires: 03/01/2025 [facility] Comment on above: Expected: 03/01/2024 , Expires: 03/01/2025 Start: 03-01-2024 End: 03-01-2025 Urate [Mass/volume] in Serum or Plasma Uric acid Lab Routine induced hypertension, antepartum Expected: 03/01/2024 (Approximate), Expires: 03/01/2025 [facility] Comment on above: Expected: 03/01/2024 (Approximate), Expires: 03/01/2025 Start: 03-01-2024 End: 03-01-2025 Urea nitrogen [Mass/volume] in Serum or Plasma BUN Lab Routine induced hypertension, antepartum Expected: 03/01/2024, Expires: 03/01/2025 [facility] Comment on above: Expected: 03/01/2024 , Expires: 03/01/2025 Start: 03-01-2024 End: 03-01-2025 US biophysical profile w non stress test US biophysical profile w non stress test Imaging Routine Hypertension affecting in third trimester Lightheadedness Dizziness Expected: 03/01/2024 (Approximate), Expires: 03/01/2025 [facility] Comment on above: Expected: 03/01/2024 (Approximate), Expires: 03/01/2025 Start: 02-20-2024 End: 02-19-2025 US for US [...] of anatomy Expected: 01/20/2024 (Approximate), Expires: 12/19/2024 [facility] Healthcare Work Phone: Comment on above: Expected: 01/20/2024 (Approximate), Expires: 12/19/2024 Start: 01-17-2024 End: 01-16-2025 CBC panel - Blood by Automated count CBC Lab Routine Diabetes mellitus screening Expected: 01/17/2024 (Approximate), Expires: 01/16/2025 [facility] Healthcare Work Phone: Comment on above: Expected: 01/17/2024 (Approximate), Expires: 01/16/2025 Start: 01-17-2024 End: 01-16-2025 Measurement of glucose 1 hour after glucose challenge for glucose tolerance test Glucose tolerance, 1 hour Lab Routine Diabetes mellitus screening Expected: 01/17/2024 (Approximate), Expires: 01/16/2025 [facility] Comment on above: Expected: 01/17/2024 (Approximate), Expires: 01/16/2025 Start: 01-17-2024 End: 01-17-2024 Patient encounter procedure [facility] Comment on above: Arrived Start: 01-17-2024 End: 01-17-2024 Professional / ancillary services management 01/17/2024 9:30 AM EDT Ancillary Procedure [facility] [address] [place] [phone] [facility] Start: 12-20-2023 End: 12-20-2023 Patient encounter procedure 12/20/2023 9:30 AM EDT Routine [facility] [address] [place] [phone] Amanda Martinez PA [address] [place], [place] [id number] Arrived [facility] Comment on above: Arrived Start: 11-20-2023 Influenza vaccination Influenza Vacc ine (#1) [facility] Immunizations Immunization Date Immunization Notes Care Provider Fa cility 12-09-2019 diphtheria, tetanus toxoids and pertussis vaccine Amanda ROMAN Work Phone: [facility] 12-09-2019 measles, mumps and rubella virus vaccine Amanda ROMAN Work Phone: [facility] 05-30-2000 diphtheria, tetanus toxoids and acellular pertussis vaccine, unspecified formulation Amanda ROMAN Work Phone: [facility] Work Phone: 05-30-2000 measles, mumps and rubella virus vaccine Amanda ROMAN Work Phone: [facility] 05-30-2000 poliovirus vaccine, inactivated Amanda ROMAN Work Phone: [facility] 03-30-2000 influenza, seasonal, injectable Amanda ROMAN Work Phone: [facility] 03-30-2000 influenza virus vaccine, unspecified formulation Amanda ROMAN Work Phone: [facility] 09-12-1998 haemophilus influenz ae type b vaccine, conjugate unspecified formulation Amanda ROMAN Work Phone: [facility] 11-28-1996 diphtheria, tetanus toxoids and acellular pertussis vaccine, unspecified formulation Amanda ROMAN Work Phone: [facility] 11-28-1996 haemophilus influenz ae type b vaccine, conjugate unspecified formulation Amanda ROMAN Work Phone: [facility] 11-28-1996 measles, mumps and rubella virus vaccine Amanda Juan PA Work Phone: [facility] 10-27-1996 trivalent poliovirus vaccine, live, oral Amanda ROMAN Work Phone: [facility] 01-31-1996 DTP-Haemophilus influenzae type b conjugate vaccine Amanda ROMAN Work Phone: [facility] 01-31-1996 hepatitis B vaccine, pediatric or pediatric/adolescent dosage Amanda ROMAN Work Phone: [facility] 01-31-1996 trivalent poliovirus vaccine, live, oral Amanda ROMAN Work Phone: [facility] 1995 DTP-Haemophilus influenzae type b conjugate vaccine Amanda ROMAN Work Phone: [facility] 1995 trivalent poliovirus vaccine, live, oral Amanda ROMAN Work Phone: [facility] 1995 DTP-Haemophilus influenzae type b conjugate vaccine Amanda ROMAN Work Phone: [facility] 1995 hepatitis B vaccine, pediatric or pediatric/adolescent dosage Amanda ROMAN Work Phone: [facility] 1995 haemophilus influenz ae type b vaccine, conjugate unspecified formulation Amanda ROMAN Work Phone: [facility] 1995 hepatitis B vaccine, pediatric or pediatric/adolescent dosage Amanda ROMAN Work Phone: [facility] Payers Date Payer Category Payer [facility] Care O (unspecified) [id number] 2023 Private Health Insurance [id number] 2022 Private Health Insurance [id number] 2022 Self-pay 2022 Unknown [id number] 1995 Unknown [id number] 2.16.84 [id number] 1995 Unknown [id number] 2.16.84 [id number] 1995 Unknown [id number] 2.16.84 [id number] 1995 Unknown [id number] 2.16.84 0.1.071410.3.579.2.593 1995 Unknown [id number] 2.16.840.1.839055.3.579.2.125 1995 Unknown [id number] 2.16.840.1.096188.3.579.2.1258 1995 Unknown [id number] 2.16.840.1.178440.3.579.2.1258 1995 Unknown [id number] 2.16.840.1.731466.3.579.2.1258 1995 Unknown [id number] 2.16840.1.811233.3.579.2.1258 1995 Unknown [id number] 2.16.840.1.513517.3.579.2.1258 1995 Unknown [id number] 2.16840.1.267575.3.579.2.1258 1995 Unknown [id number] 2.16.840.1.928861.3.579.2.1258 1995 Unknown [id number] 2.16840.1.751993.3.579.2.1258 1995 Unknown [id number] 2.16.840.1.115491.3.579.2.1258 1995 Unknown [id number] 2.16.840.1.378172.3.579.2.1258 1995 Unknown [id number] 2.16.840.1.056225.3.579.2.1258 1995 Unknown [id number] 2.16.840 .1.203089.3.579.2.1259 1959 Unknown [id number] 1959 Unknown [id number] 1959 Unknown [id number] Unknown [id number] [id number] Social History Date Type Detail Facility Tobacco smoking stat us NHIS Unknown if ever smoked [facility] Work Phone: Start: 1995 Sex Assigned At Female [facility] Start: 09-08-2023 End: 11-23-2023 Sex Assigned At [facility] Start: 11-24-2022 Tobacco smoking status NHIS Never smoked tobacco [facility] Start: 11-24-2022 Tobacco use and exposure Smokeless tobacco non-user [facility] Start: 11-23-2023 End: 03-01-2024 Alcoholic beverage intake Ex-drinker (finding) [facility] Start: 09-08-2023 End: 11-23-2023 Alcoholic beverage intake [facility] How often do you nee d to have someone help you when you read instructions, pamphlets, or other written material from your doctor or pharmacy [SILS] Never [facility] Do you belong to any clubs or organizations such as sikhism groups, unions, fraternal or athletic groups, or [...] Gender identity Identifies as female gender (finding) [facility] Start: 10-18-2022 Sexual orientation Heterosexual (finding) [facility] Clinical Notes 05-11-2022 to 03-01-2024 ABEL Carroll - 03/01/2024 11:00 AM Graeme Duran LPN - 02/20/2024 9:50 AM ABEL Stinson - 01/17/2024 10:10 AM ABEL Tejada - 12/20/2023 9:30 AM EDT Note Date & Type Note Facility 03-01-2024 History of Presen t illness Narrative Reason for Appointment: Patient ID: Nazia Ruiz is a 28 y.o. female who presents for No chief complaint on file. Patient presents today for Acute Visit. MEDICATIONS Current Outpatient Medications Medication Instructions cetirizine (ZYRTEC) 10 mg, Daily fluticasone (Flonase) 50 MCG/ACT nasal spray 1 spray, Daily labetalol (NORMODYNE) 100 mg, Oral, 2 times daily MV & Min w/FA-DHA ([facility] GUMMY PO) 1 tablet, Daily venlafaxine XR (EFFEXOR XR) 37.5 mg, [...] reviewed. Vitals: Estimated body mass index is 37.57 kg/m as calculated from the following: Height as of 11/23/23: 5' 2 . Weight as of this encounter: 205 lb 6.4 oz. BP: 130/90 Patient's last menstrual period was 07/27/2023. ASSESSMENT & PLAN ICD-10-CM 1. 31 weeks gestation of Z3A.31 POCT urinalysis dipstick manually resulted 2. Third trimester Z34.93 POCT urinalysis dipstick manually resulted 3. induced hypertension, antepartum O13.9 Creatinine Protein, urine, 24 hour Pt and ptt CBC and differential Uric acid Lactate dehydrogenase ALT AST BUN Creatinine Protein, urine, 24 hour Pt and ptt CBC and differential Uric acid Lactate dehydrogenase ALT AST BUN 4. Hypertension affecting in third trimester O16.3 labetalol (Normodyne) 100 MG tablet US biophysical profile w non stress test 5. Lightheadedness R42 US biophysical profile w non stress test 6. Dizziness R42 US biophysical profile w non stress test Patient presents for acute visit due to dizziness and increased BP while at work. BP today in office is 130/90. We will start patient on labetolol 100mg bid, pt to follow up next week. Labs ordered as well. Patient denies headache or shortness of breath, denies floaters. Otherwise doing well today Documented by ABEL Carroll on behalf of: ABEL Carroll documented in this encounter [facility] 02-20-2024 History of Presen t illness Narrative [...] nursing note reviewed. Exam conducted with a relationship mgr present. Vitals: Estimated body mass index is [...] Anai Burger DO documented in this encounter [facility] 01-17-2024 History of Presen t illness Narrative [...] nursing note reviewed. Exam conducted with a relationship mgr present. Vitals: Estimated body mass index is [...] of: ABEL Carroll documented in this encounter [facility] 12-20-2023 History of Presen t illness Narrative [...] of: ABEL Carroll documented in this encounter [facility] 05-11-2022 Evaluation note Encounter Date Diagnosis Assessment [...] Instructed patient to wear brace for activities. Replenish Other Evaluation noteNo assessment information available [facility] Work Phone: Evaluation note* Diagnosis Encounter for follow-up ultrasound of anatomy Second trimester state, incidental 20 weeks gestation of [facility] Diabetes mellitus screening Screening for diabetes mellitus Second trimester state, incidental 24 weeks gestation of documented in this encounter [facility]* Diagnosis Third trimester state, incidental Excessive growth affecting management of , antepartum, single or unspecified fetus [facility] Diagnosis 31 weeks gestation of Third trimester state, incidental induced hypertension, antepartum Transient hypertension of , antepartum Hypertension affecting in third trimester Lightheadedness Dizziness and giddiness Dizziness Dizziness and giddiness documented in this encounter [facility] Narrative - Reported* Type Description Date Medical History learning disability Surgical History tymponostomy x7 Replenish Other Summary Purpose Family History No Family History Records FoundNo Family History Records FoundNo Family History Records Found Advance Directives No Advanced Directives Records FoundNo Advanced Directives Records FoundNo Advanced Directives Records Found Additional Source Comments INFORMATION SOURCE (unrecogn ized section and content) DATE CREATED AUTHOR 09/12/2021 [facility] DATE CREATED AUTHOR AUTHOR'S ORGANIZ ATION 05/21/2022 [facility] DATE CREATED AUTHOR AUTHOR'S ORGANIZ ATION 03/04/2024 [facility] Care Teams (unrecognized sec tion and content) Team Status: Inactive Member Role Status Dates Dee Buchanan MD Attending Provider Active Crank Hand Relationship Specialty Start Date End Date Verito Lamb MD [address] [facility] [address] [place] [address] PCP - General Family Medicine 10/18/22 Crank Hand Relationship Specialty Start Date End Date Verito Lamb MD [address] [facility] [facility] [address] [place] [address] PCP - General Family Medicine 10/18/22 Crank Hand Relationship Specialty Start Date End Date Verito Lamb MD [address] [facility] [address] [place] [address] PCP - General Family Medicine 10/18/22 Crank Hand Relationship Specialty Start Date End Date Verito Lamb MD [address] [facility] [address] [place] [address] PCP - General Family Medicine 10/18/22 Crank Hand Relationship Specialty Start Date End Date Verito Lamb MD [address] [facility] [address] [place] [address] PCP - General Family Medicine 10/18/22 Crank Hand Relationship Specialty Start Date End Date Verito Lamb MD [address] [facility] [address] [place] [address] PCP - General Family Medicine 10/18/22 Goals [...] BE BASED ON THE PRIMARY CLINICAL RECORDS. [email or web address] provides no warranty or guarantee of the accuracy or completeness of information in this document.
== END 2024-03-05 09:07 | disposition home or self-care (01) ==
LOC: NOMS 09:06
PROVIDERS: PCP Family Medicine; Visit Provider Obstetrics & Gynecology
DX: O36.63X0 Maternal care for excessive fetal growth, third trimester, not applicable or unspecified (principal); Z3A.31 31 weeks gestation of pregnancy; O13.3 Gestational [pregnancy-induced] hypertension without significant proteinuria, third trimester
CPT/HCPCS: 76816; 84156

== ENCOUNTER 2024-03-05 09:07 | Outpatient (REF) | payer OTHER, SELFPAY ==
[2024-03-05 10:28] LABS: Total Protein Urine Random 12.3 mg/dL (<=11.9)
[2024-03-05 10:31] LABS: Total Protein 24 Hour Urine 239.9 mg/24hr (<=149.1); Total Volume 24 Hour Urine 1950 mL/24hr
== END 2024-03-05 09:08 | disposition home or self-care (01) ==
LOC: LAB 09:07
PROVIDERS: PCP Family Medicine; Visit Provider Physician Assistant
DX: O13.9 Gestational [pregnancy-induced] hypertension without significant proteinuria, unspecified trimester (principal); Z3A.00 Weeks of gestation of pregnancy not specified
CPT/HCPCS: 84156

== ENCOUNTER 2024-03-17 07:31 | Outpatient (OUT) | payer OTHER, SELFPAY ==
--- NOTE | 2024-03-17 | US_ITS ---
[address] [address] Patient Name: ELIZABETH MOLINA MRN: [id number] date: 1995 Sex: F Assigned Patient Location: [facility] Current Patient Location: Accession/Order Number: [id number] Exam Date: 03/17/2024 14:45 Report Date: 03/19/2024 16:37 At the request of: ANAI AMADO Procedure: US OB BPP w non-stress EXAMINATION: US OB BPP w non-stress HISTORY:Hypertension affecting in third trimester O16.3 COMPARISON: Ultrasound OB growth 03/05/2024 TECHNIQUE: Ultrasound biophysical profile was performed in the radiology department. BREATHING MOVEMENTS: 2 GROSS BODY MOVEMENTS: 2 TONE: 2 QUALITATIVE AMNIOTIC FLUID VOLUME: 2 PRESENTATION: CEPHALIC HEART RATE: 127.36 bpm AMNIOTIC FLUID VOLUME: 16.45 cm GESTATIONAL AGE: 33 weeks 3 days US/US OB BPP w non-stress IMPRESSION: Total biophysical profile score: 8 Electronically authenticated by: RICHARD SCHULZ Date: 03/19/2024 16:37
--- OUTSIDE RECORDS SUMMARY | 2024-03-17 07:35 | XMS_ITS | CCD ---
Author Organization 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 Name Role Phone ANEUDY, DR OSPINA Admitting [...] Unavailable Verito Lamb MD Primary Care Provider [phone] MARLENE PLASENCIA Attending Unavailable MARLENE PLASENCIA Attending Unavailable MARLENE PLASENCIA Attending Unavailable SANGEETHA GRAY Attending Unavailable AMANDA MARTINEZ Attending Unavailable ANAI BURGER Attending Unavailable ANAI BURGER Attending Unavailable MARLENE PLASENCIA Attending Unavailable AMANDA MARTINEZ Attending Unavailable AMANDA MARTINEZ Attending Unavailable ANAI BURGER Attending Unavailable AMANDA MARTINEZ Attending Unavailable AMANDA MARTINEZ Attending Unavailable Allergies Allergy Classification Reported Allergen(s) Allergy Type Date of Onset Reaction(s) Facility (1 source) Cephalexin Drug Allergy [facility] (6 sources) ARIPiprazole Drug Allergy 3 [facility] Work Phone: (6 sources) cariprazine Drug Allergy 3 [facility] (6 sources) Cephalexin Drug Allergy 3 Unknown [facility] (6 sources) Propofol Drug Allergy 3 Unknown [facility] Healthcare (6 sources) Flavoring Agent Allergy to substance 3 Unknown [facility] Healthcare (6 sources) Mosquito (Diagnostic) Drug Allergy 3 Unknown [facility] Medications Current Medications Medication Drug [...] UA Negative Negative - 4(70) +++ mg/dL [facility] Blood, UA Negative Negative - 50 Neno/mcL [facility] Clarity, UA Clear [facility] Color, UA Yellow [facility] Glucose, UA Negative Negative - 2000(110) ++++ mg/dL [facility] Interpretation and review of laboratory results Abnormal [facility] Ketones, UA Negative Negative - 160(16) ++++ mg/dL [facility] Healthcare Leukocytes, UA Trace Negative - 500+++ Virgie/mcL [facility] Healthcare Nitrite, UA Negative Negative - Positive [facility] pH, UA 6 5 - 9 [facility] Protein, UA Negative Negative - 1999(20) ++++ mg/dL [facility] Spec Grav, UA 1.02 1 - 1.03 [facility] Urobilinogen, UA 1.0 0.2 - 12 mg/dL [facility] Urinalysis macro (dipstick) panel (U)on 12-20-2023 Bilirubin, UA Negative Negative - 4(70) +++ mg/dL [facility] Blood, UA Negative Negative - 50 Neno/mcL [facility] Healthcare Clarity, UA Clear [facility] re Color, UA Yellow [facility] Glucose, UA Negative Negative - 1999(110) ++++ mg/dL [facility] Interpretation and review of laboratory results Abnormal [facility] Ketones, UA Negative Negative - 160(16) ++++ mg/dL [facility] Leukocytes, UA Trace Negative - 500+++ Virgie/mcL [facility] Healthcare Nitrite, UA Negative Negative - Positive [facility] pH, UA 6.5 5 - 9 [facility] Healthcar e Protein, UA Negative Negative - 1999(20) ++++ mg/dL [facility] Healthcare Spec Grav, UA 1.025 1 - 1.03 [facility] Health care Urobilinogen, UA 0.2 0.2 - 12 mg/dL [facility] LT min 3V*on 2022 XR wrist LT min 3V* [place] [address] XRay Report Signed Patient: Nazia Harper MR#: [id number] 67 : 1995 Acct:[id number] Age/Sex: 26 / F ADM Date: 05/11/22 [place] [facility] [place] Type[place] [facility] Attending Dr: Dee Buchanan MD Copies [...] Travis Jr., D.O.05/11/2022 12:18 PM Dictation Location: [facility]- Transcribed By: [facility] 05/11/22 1218 Dictated By: Tan Travis Jr, DO 05/11/22 1217 Signed By: 05/11/22 1218 Normal [facility] XR wrist LT min 3V* [facility] [email or web address] Other XR wrist LT min 3V* [facility] [employer] Other XR wrist LT min 3V* [address] [place] [address] [employer] Other XR wrist LT min 3V* [place] [address] [employer] Other XR wrist LT min 3V* XRay Report [employer] Other XR wrist LT min 3V* Signed [employer] Other XR wrist LT min 3V* Patient: Nazia Harper MR#: [id number] [employer] Other XR wrist LT min 3V* 67 [employer] Other XR wrist LT min 3V* : 1995 Acct:[id number] [employer] Other XR wrist LT min 3V* Age/Sex: 26 / F ADM Date: 05/11/22 [employer] Other XR wrist LT min 3V* Loc: [facility] Room: Type: [facility] [employer] Other XR wrist LT min 3V* Attending Dr: Dee Buchanan MD [employer] Other XR wrist LT min 3V* Copies to: Dee Buchanan MD [employer] Other XR wrist LT min 3V* Ordering Provider: Dee Buchanan MD [employer] Other XR wrist LT min 3V* Date of Service: 05/11/22 [employer] Other XR wrist LT min 3V* XR/XR wrist LT min 3V*: PAIN [employer] Other XR wrist LT min 3V* LEFT WRIST - 4 views [employer] Other XR wrist LT min 3V* CLINICAL HISTORY: Ganglion cyst posterior aspect at the level of the carpals. [employer] Other XR wrist LT min 3V* COMPARISON: None [employer] Other XR wrist LT min 3V* FINDINGS: [employer] Other XR wrist LT min 3V* No focal soft tissue abnormality is noted. No acute bony process is seen. Carpal bones appear [employer] Other XR wrist LT min 3V* unremarkable. [employer] Other XR wrist LT min 3V* XR/XR wrist LT min 3V* [employer] Other XR wrist LT min 3V* IMPRESSION: [employer] Other XR wrist LT min 3V* NO ACUTE BONY PROCESS. [employer] Other XR wrist LT min 3V* Impression dictated by: Tan Travis Jr. [email or web address]/11/2022 12:18 PM [employer] Other XR wrist LT min 3V* Dictation Location: [place] [address] [employer] Other XR wrist LT min 3V* Transcribed By: JOSE ALEJANDRO 05/11/22 1218 [employer] Other XR wrist LT min 3V* Dictated By: Tan Travis Jr, DO 05/11/22 1217 [employer] Other XR wrist LT min 3V* Signed By: [employer] Other XR wrist LT min 3V* 05/11/22 1215 [employer] Other PAP ACOG PANEL 2: 21 to 29on 08-15-2021 . . Normal [facility] Comment on above: Result Comment: Perf ormed at: BA Performed By: #### [id number] #### [facility] [address] [place] [address] Dr. Alek Fu Age Gdln ACOG Testing [facility] Comment on above: Performed By: #### [id number] #### [facility] [address] [place] [address] Dr. Alek Fu DIAGNOSIS: Comment [facility] Comment on above: Result Comment: NEGA TIVE FOR INTRAEPITHELIAL LESION OR MALIGNANCY. Performed at: BA Performed By: #### [id number] #### [facility] [address] [address] [address] Alek Fu Methodology: Comment [facility] Comment on above: Result Comment: This liquid based ThinPrep(R) pap test was screened with the use of an image guided system. Performed at: WB Performed By: #### [id number] #### [facility] [address] [place] [address] Dr. Alek Fu Note: Comment [facility] Comment on above: Result Comment: The Pap smear is a screening test designed to aid in the detection of premalignant and malignant conditions of the uterine cervix. It is not a diagnostic procedure and should not be used as the sole means of detecting cervical cancer. Both false-positive and false-negative reports do occur. . Performed at: WB Performed By: #### [id number] #### [facility] [address] [place] [address] Dr. Alek Fu Performed by: Comment [facility] Comment on above: Result Comment: Elen Carrillo, [employer] (ASCP) Performed at: BA Performed By: #### [id number] #### [facility] [address] [place] [address] Dr. Alek Fu Reflex Criteria: Comment Normal [facility] Comment on above: Result Comment: The HPV DNA reflex criteria were not met with this specimen result therefore, no HPV testing was performed. . Performed at: BA Performed By: #### [id number] #### [facility] [address] [place] [address] Dr. Alek Fu Specimen adequacy: Comment Normal [facility] Comment on above: Result Comment: Sati sfactory for evaluation. Endocervical and/or squamous metaplastic cells (endocervical component) are present. Performed at: BA Performed By: #### [id number] #### [facility] [address] [place] [address] Dr. Alek Fu XR KNEE SABRINA 4V [...] by: ZURI PHOENIX Date: 2021-07-17 17:09 Normal [facility] CBC AUTO DIFFon 12-08-2020 BASO # 0.0 103/ul Normal 0.0-0.1 [facility] Comment on above: Performed By: #### C BC #### [facility] [address] [place] [address] Dr. Alek Fu Basophils/100 WBC (Bld) 0.2 % Normal 0.2-2.0 [facility] Comment on above: Performed By: #### C BC #### [facility] [address] [place] [address] Dr. Alek Fu EO # 0.0 103/ul Normal 0.0-0.7 [facility] Comment on above: Performed By: #### C BC #### [facility] [address] [place] [address] Dr. Alek Fu Eosinophils/100 WBC (Bld) 0.6 % Critically low 0.9-7.0 [facility] Comment on above: Performed By: #### C BC #### [facility] [address] [place] [address] Dr. Alek Fu Erythrocyte distribution width (RBC) [Ratio] 12.4 % Normal 11.0-15.0 [facility] Comment on above: Performed By: #### C BC #### [facility] [address] [place] [address] Dr. Alek Fu Hematocrit (Bld) [Volume fraction] 44.3 % Normal 36.0-48.0 [facility] Comment on above: Performed By: #### C BC #### [facility] [address] [place] [address] Dr. Alek Fu Hemoglobin (Bld) [Mass/Vol] 15.4 g/dL Normal 12.0-16.0 [facility] Comment on above: Performed By: #### C BC #### [facility] [address] [place] [address] Dr. Alek Fu IG # 0.04 10e3/ul Critically high 0.00-0.03 [facility] Comment on above: Performed By: #### C BC #### [facility] [address] [place] [address] Dr. Alek Fu IG % 0.6 % Critically high 0.0-0.5 [facility] Comment on above: Performed By: #### C BC #### [facility] [address] [place] [address] Dr. Alek Fu LYMPH # 3.2 103/ul Normal 1.2-3.8 [facility] Comment on above: Performed By: #### C BC #### [facility] [address] [place] [address] Dr. Alek Fu Lymphocytes/100 WBC (Bld) 50.2 % Normal 20.5-60.0 [facility] Comment on above: Performed By: #### C BC #### [facility] [address] [place] [address] Dr. Alek Fu MANUAL DIFF REQ NO Normal [facility] Comment on above: Performed By: #### C BC #### [facility] [address] [place] [address] Dr. Alek Fu MCH (RBC) [Entitic mass] 28.7 pg Normal 26.7-34.0 [facility] Comment on above: Performed By: #### C BC #### [facility] [address] [place] [address] Dr. Alek Fu MCHC (RBC) [Mass/Vol] 34.8 g/dL Normal 29.9-35.2 [facility] Comment on above: Performed By: #### C BC #### [facility] [address] [place] [address] Dr. Alek Fu MCV (RBC) [Entitic vol] 82.5 fL Normal 81.0-99.0 [facility] Comment on above: Performed By: #### C BC #### [facility] [address] [place] [address] Dr. Alek Fu MONO # 0.6 103/ul Normal 0.3-0.8 [facility] Comment on above: Performed By: #### C BC #### [facility] [address] [place] [address] Dr. Alek Fu Monocytes/100 WBC (Bld) 10.0 % Normal 1.7-12.0 [facility] Comment on above: Performed By: #### C BC #### [facility] [address] [place] [address] Dr. Alek Fu NEUT # 2.4 103/ul Normal 1.4-6.5 [facility] Comment on above: Performed By: #### C BC #### [facility] [address] [place] [address] Dr. Alek Fu Neutrophils/100 WBC (Bld) 38.4 % Critically low 43.0-75.0 [facility] Comment on above: Performed By: #### C BC #### [facility] [address] [place] [address] Dr. Alek Fu Platelet mean volume (Bld) [Entitic vol] 9.9 fL Normal 9.5-13.5 [facility] Comment on above: Performed By: #### C BC #### [facility] [address] [place] [address] Dr. Alek Fu PLT 206 103/ul Normal 150-450 [facility] Comment on above: Performed By: #### C BC #### [facility] [address] [place] [address] Dr. Alek Fu RBC 5.37 106/ul Normal 4.20-5.40 [facility] Comment on above: Performed By: #### C BC #### [facility] [address] [place] [address] Dr. Alek Fu WBC 6.3 103/ul Normal 4.0-11.0 [facility] Comment on above: Performed By: #### C BC #### [facility] [address] [place] [address] Dr. Alek Fu ER URINE PROFILEon 1 Bilirubin Ql (U) Negative Normal NEGATIVE [facility] Comment on above: Performed By: #### E RUR #### [facility] [address] [place] [address] Dr. Alek Fu Clarity (U) CLEAR Normal CLEAR [facility] Comment on above: Performed By: #### E RUR #### [facility] [address] [place] [address] Dr. Alek Fu Color (U) YELLOW Normal YELLOW [facility] Comment on above: Performed By: #### E RUR #### [facility] [address] [place] [address] Dr. Alek WOOD A micrscopic examination will be performed if indicated. Normal [facility] Comment on above: Performed By: #### E RUR #### [facility] [address] [place] [address] Dr. Alek Fu Glucose Ql (U) Negative Normal NEGATIVE [facility] Comment on above: Performed By: #### E RUR #### [facility] [address] [place] [address] Dr. Alek Fu Hemoglobin Ql (U) TRACE-INTACT Abnormal NEGATIVE [facility] Comment on above: Performed By: #### E RUR #### [facility] [address] [place] [address] Dr. Alek Fu Ketones Ql (U) TRACE Abnormal NEGATIVE [facility] Comment on above: Performed By: #### E RUR #### [facility] [address] [place] [address] Dr. Alek Fu LEUKOCYTES Negative Normal NEGATIVE [facility] Comment on above: Performed By: #### E RUR #### [facility] [address] [place] [address] Dr. Alek Fu Nitrite Ql (U) Negative Normal NEGATIVE [facility] Comment on above: Performed By: #### E RUR #### [facility] [address] [place] [address] Dr. Alek Fu pH (U) 6.0 [pH] Normal 5-9 [facility] Comment on above: Performed By: #### E RUR #### [facility] [address] [place] [address] Dr. Alek Fu SPEC GRAVITY 1.015 Normal 1.005-<=1.025 [facility] Comment on above: Performed By: #### E RUR #### [facility] [address] [place] [address] Dr. Alek Fu UA PROTEIN Negative Normal NEGATIVE/ TRACE [facility] Comment on above: Performed By: #### E RUR #### [facility] [address] [place] [address] Dr. Alek Fu UR MICRO IND NOT INDICATED Normal [facility] Comment on above: Performed By: #### E RUR #### [facility] [address] [place] [address] Dr. Alek Fu Urobilinogen Qn (U) 0.2 {Roya'U}/dL Normal 0.2 - 1.0 [facility] Comment on above: Performed By: #### E RUR #### [facility] [address] [place] [address] Dr. Alek Fu URon 12-08-2020 , QUAL Negative Normal NEGATIVE [facility] Comment on above: Performed By: #### P REGU #### [facility] [address] [place] [address] Dr. Alek Fu PROF CHEM 8 (BAS METB)on Anion gap [Moles/Vol] 13.0 mmol/L Normal [facility] Comment on above: Performed By: #### B MP #### [facility] [address] [place] [address] Dr. Alek Fu Calcium [Mass/Vol] 9.0 mg/dL Normal 8.4-10.2 [facility] Comment on above: Performed By: #### B MP #### [facility] [address] [place] [address] Dr. Alek Fu Chloride [Moles/Vol] 103 mmol/L Normal 98-107 [facility] Comment on above: Performed By: #### B MP #### [facility] [address] [place] [address] Dr. Alek Fu CO2 [Moles/Vol] 25.0 mmol/L Normal 22.0-30.0 [facility] Comment on above: Performed By: #### B MP #### [facility] [address] [place] [address] Dr. Alek Fu Creatinine [Mass/Vol] 0.96 mg/dL Normal 0.52-1.04 [facility] Comment on above: Performed By: #### B MP #### [facility] [address] [place] [address] Dr. Alek Fu EGFR-AF SWISS >60 Normal >=60 [facility] Comment on above: Performed By: #### B MP #### [facility] [address] [place] [address] Dr. Alek Fu EGFR-NON AF SWISS >60 Normal >=60 [facility] Comment on above: Performed By: #### B MP #### [facility] [address] [address] [address] Alek Fu Glucose [Mass/Vol] 99 mg/dL Normal 74-106 [facility] Comment on above: Performed By: #### B MP #### [facility] [id number] Alek Fu Potassium [Moles/Vol] 3.0 mmol/L Critically low 3.4-5.0 [facility] Comment on above: Performed By: #### B MP #### [facility] [address] [address] [address] Alek Fu Sodium [Moles/Vol] 138 mmol/L Normal 137-145 [facility] Comment on above: Performed By: #### B MP #### [facility] [address] [address] [address] Alek Fu Urea nitrogen [Mass/Vol] 11.0 mg/dL Normal 7.0-17.0 [facility] Comment on above: Performed By: #### B MP #### [facility] [address] [address] [address] Alek Fu Urea nitrogen/Creatinin e [Mass ratio] 11.5 mg/mg Normal [facility] Comment on above: Performed By: #### B MP #### [facility] [address] [address] [address] Alek Fu Covid-19 PCR ([facility]on 11-19 SARS-CoV-2 (COVID-19) RNA SANTANA+probe Ql (Unsp spec) Detected Critically abnormal NOT DETECTED [facility] Comment on above: Result Comment: This test is not yet approved or cleared by the [place] FDA. When there are no FDA-approved or cleared tests available, and other criteria are met, FDA can make tests available under an emergency access mechanism called an Emergency Use Authorization (EUA). The EUA for this test is supported by the Paper Spooler of Health and Human Service's (HHS's) declaration [...] used). Performed By: #### C TB #### [facility] [address] [place] [address] Dr. Alek Fu Vital Signs Date Time Vital Sign Value Performing Clinician Faci lity 01-17-2024 10:15-0400 Body mass index (BMI) [Ratio] 36 kg/m2 Amanda Alesia PA Work Phone: [facility] 01-17-2024 10:15-0400 Body weight 89.27 kg Amanda Dallas PA Work Phone: [facility] 01-17-2024 10:15-0400 Diastolic blood pressure 70 mm[Hg] Amanda Alesia PA Work Phone: [facility] 01-17-2024 10:15-0400 Systolic blood pressure 122 mm[Hg] Amanda Dallas PA Work Phone: [facility] 12-20-2023 09:58-0400 Body mass index (BMI) [Ratio] 34.93 kg/m2 Amanda Dallas PA Work Phone: [facility] 12-20-2023 09:58-0400 Body weight 86.64 kg Amanda Dallas PA Work Phone: [facility] 12-20-2023 09:58-0400 Diastolic blood pressure 76 mm[Hg] Amanda Alesia PA Work Phone: [facility] 12-20-2023 09:58-0400 Systolic blood pressure 124 mm[Hg] Amanda Alesia PA Work Phone: [facility] Healthcare Encounters Encounter Date Encounter Type Care Provider Facility Start: 03-05-2024 End: 03-05-2024 ambulatory AMANDA MARTINEZ Not Available Start: 03-01-2024 End: 03-01-2024 ambulatory AMANDA MARTINEZ Not Available Start: 02-20-2024 End: 02-20-2024 ambulatory ANAI ANEUDY Not Available Start: 01-17-2024 End: 01-17-2024 Bamboo flowsheet Amanda Martinez PA Work Phone: [facility] Start: 01-17-2024 End: 01-17-2024 Bamboo flowsheet Amanda Martinez PA Work Phone: [facility] Start: 01-17-2024 End: 01-17-2024 flow sheet Amanda Martinez PA Work Phone: [facility] Comment on above: Diabetes mellitus sc reening; Second trimester ; 24 weeks gestation of Start: 01-17-2024 End: 01-17-2024 ambulatory AMANDA MARTINEZ Not Available Start: 12-20-2023 End: 12-20-2023 Bamboo flowsheet Amanda Martinez PA Work Phone: [facility] Start: 12-20-2023 End: 12-20-2023 Bamboo flowsheet Amanda Martinez PA Work Phone: [facility] Start: 12-20-2023 End: 12-20-2023 flow sheet Amanda Martinez PA Work Phone: [facility] Comment on above: Encounter for follow -up ultrasound of anatomy; Second trimester ; 20 weeks gestation of Start: 12-20-2023 End: 12-20-2023 ambulatory AMANDA MARTINEZ Not Available Start: 11-23-2023 End: 11-23-2023 ambulatory MARLENE PLASENCIA Not Available Start: 11-22-2023 End: 11-22-2023 ambulatory ANAI ANEUDY Not Available Start: 10-24-2023 End: 10-24-2023 ambulatory ANAI ANEUDY Not Available Start: 10-11-2023 End: 10-11-2023 ambulatory AMANDA MARTINEZ Not Available Start: 09-29-2023 End: 09-29-2023 ambulatory MARLENE PLASENCIA Not Available Start: 09-08-2023 End: 09-08-2023 ambulatory SANGEETHA GRAY Not Available Start: 07-26-2023 End: 07-26-2023 ambulatory MARLENE PLASENCIA Not Available Start: 06-16-2023 End: 06-16-2023 ambulatory MARLENE PLASENCIA Not Available Start: 03-23-2023 End: 03-23-2023 ambulatory MARLENE PLASENCIA Not Available Start: 05-11-2022 Office outpatient ne w 45 minutes [facility] Start: 05-11-2022 End: 05-11-2022 ambulatory Dee Buchanan Facility:[facility] Start: 05-11-2022 End: 05-11-2022 ambulatory MD Dee Buchanan Work Phone: [facility] Work Phone: Start: 05-11-2022 End: 05-11-2022 Patient encounter procedure MD Dee Buchanan Work Phone: [facility] Start: 08-10-2021 End: 08-10-2021 ambulatory DR [...] AM EST Routine [facility] [address] [place] [address] Anai Burger, DO [address] [place] [address] [facility] Start: 01-20-2024 End: 12-19-2024 [...] mellitus screening Expected: 01/17/2024 (Approximate), Expires: 01/16/2025 [facility] Work Phone: Comment on above: Expected: 01/17/2024 (Approximate), Expires: 01/16/2025 Start: 01-17-2024 End: 01-16-2025 Measurement of glucose 1 hour after glucose challenge for glucose tolerance test Glucose tolerance, 1 hour Lab Routine Diabetes mellitus screening Expected: 01/17/2024 (Approximate), Expires: 01/16/2025 [facility] Comment on above: Expected: 01/17/2024 (Approximate), Expires: 01/16/2025 Start: 01-17-2024 End: 01-17-2024 Patient encounter procedure [facility] Comment on above: Arrived Start: 01-17-2024 End: 01-17-2024 Professional / ancillary services management 01/17/2024 9:30 AM EDT Ancillary Procedure [facility] [address] [place] [id number] [facility] Start: 12-20-2023 End: 12-20-2023 Patient encounter procedure 12/20/2023 9:30 AM EDT Routine [facility] [address] [place] [id number] Amanda Martinez PA [address] [place] [address] Arrived [facility] Comment on above: Arrived Start: 11-20-2023 Influenza vaccination Influenza Vacc ine (#1) [facility] Immunizations Immunization Date Immunization Notes Care Provider Fa cility 12-09-2019 diphtheria, tetanus toxoids and pertussis vaccine Amanda ROMAN Work Phone: [facility] 12-09-2019 measles, mumps and rubella virus vaccine Amanda ROMAN Work Phone: [facility] 05-30-2000 diphtheria, tetanus toxoids and acellular pertussis vaccine, unspecified formulation Amanda Martinez PA Work Phone: [facility] Work Phone: 05-30-2000 measles, mumps and rubella virus vaccine Amanda ROMAN Work Phone: [facility] 05-30-2000 poliovirus vaccine, inactivated Amanda ROMAN Work Phone: [facility] 03-30-2000 influenza, seasonal, injectable Amanda ROMAN Work Phone: [facility] 03-30-2000 influenza virus vaccine, unspecified formulation Amanda ROMAN Work Phone: [facility] 09-12-1998 haemophilus influenz ae type b vaccine, conjugate unspecified formulation Amanda ROMAN Work Phone: [facility] 11-28-1996 diphtheria, tetanus toxoids and acellular pertussis vaccine, unspecified formulation Amanda ROMAN Work Phone: [facility] 11-28-1996 haemophilus influenz ae type b vaccine, conjugate unspecified formulation Amanda ROMAN Work Phone: [facility] 11-28-1996 measles, mumps and rubella virus vaccine Amanda ROMAN Work Phone: [facility] 10-27-1996 trivalent poliovirus vaccine, live, oral Amanda ROMAN Work Phone: [facility] 01-31-1996 DTP-Haemophilus influenzae type b conjugate vaccine Amanda ROMAN Work Phone: [facility] 01-31-1996 hepatitis B vaccine, pediatric or pediatric/adolescent dosage Amanda ROMAN Work Phone: [facility] 01-31-1996 trivalent poliovirus vaccine, live, oral Amanda ROMAN Work Phone: [facility] 1995 DTP-Haemophilus influenzae type b conjugate vaccine Amanda ROMAN Work Phone: [facility] 1995 trivalent poliovirus vaccine, live, oral Amanda ROMAN Work Phone: [facility] 1995 DTP-Haemophilus influenzae type b conjugate vaccine Amanda ROMAN Work Phone: [facility] 1995 hepatitis B vaccine, pediatric or pediatric/adolescent dosage Amanda ROMAN Work Phone: [facility] 1995 haemophilus influenz ae type b vaccine, conjugate unspecified formulation Amanda ROMAN Work Phone: [facility] 1995 hepatitis B vaccine, pediatric or pediatric/adolescent dosage Amanda ROMAN Work Phone: [facility] Payers Date Payer Category Payer [facility] Care [facility] (unspecified) [id number] 2023 Private Health Insurance [id number] 2022 Private Health Insurance [id number] 2022 Self-pay 2022 Unknown [id number] 1995 Unknown [id number] 2.16.84 0.1.855732.3.579.2.593 1995 Unknown [id number] 2.16.84 0.1.934295.3.579.2.593 1995 Unknown [id number] 2.16.84 0.1.236069.3.579.2.593 1995 Unknown [id number] 2.16.84 0.1.327991.3.579.2.593 1995 Unknown [id number] 2.16.840.1.644175.3.579.2.1258 1995 Unknown [id number] 2.16840.1.195591.3.579.2.1258 1995 Unknown [id number] 2.16840.1.885526.3.579.2.1258 1995 Unknown [id number] 2.16840.1.523553.3.579.2.1258 1995 Unknown [id number] 2.16840.1.026629.3.579.2.1258 1995 Unknown [id number] 2.840.1.131003.3.579.2.1258 1995 Unknown [id number] 2.840.1.491368.3.579.2.1258 1995 Unknown [id number] 2.840.1.100350.3.579.2.1258 1995 Unknown [id number] 2.0.1.753577.3.579.2.1258 1995 Unknown [id number] 2.0.1.449285.3.579.2.1258 1995 Unknown [id number] 2.840.1.106898.3.579.2.1258 1995 Unknown [id number] 2.840.1.976625.3.579.2.1258 1995 Unknown [id number] 2.840.1.226196.3.579.2.1258 1995 Unknown [id number] 2.840 .1.516026.3.579.2.9 1959 Unknown [id number] 1959 Unknown [id number] 1959 Unknown [id number] Unknown [id number] 2.840.1.067348.3.579.2.531 Social History Date Type Detail Facility Tobacco smoking stat [facility] Unknown if ever smoked [facility] Work Phone: Start: 1995 Sex Assigned At Female [facility] Start: 09-08-2023 End: 11-23-2023 Sex Assigned [...] to any clubs or organizations such as jainism groups, unions, fraternal or athletic groups, or [...] Narrative Reason for Appointment: Patient ID: Nazia Shah Sara is a 28 y.o. female who presents [...] nursing note reviewed. Exam conducted with a manager patient present. Vitals: Estimated body mass index is [...] auditory processing disorder Chronic ear infection Depression (CMS/[facility]) ETD (eustachian tube dysfunction) Ganglion cyst of [...] of: ABEL Carroll documented in this encounter [facility] Evaluation note 05-11-2022 Note Date & Type [...] Instructed patient to wear brace for activities. [employer] Other Evaluation note Note Date & Type Note Facility Evaluation note No assessment information availa aysha [facility] Work Phone: Evaluation note Note Date & Type Note Facility Evaluation note Diagnosis Encounter for follow-up ultrasound of anatomy Second trimester state, incidental 20 weeks gestation of documented in this encounter [facility] Evaluation note Note Date & Type Note Facility Evaluation note Diagnosis Diabetes mellitus screening Screening for diabetes mellitus Second trimester state, incidental 24 weeks gestation of documented in this encounter [facility] History general Narrative - Reported Note Date & Type Note Facility History general Narrative - Reported Type Medical History learning disability Surgical History tymponostomy x7 [facility] [email or web address] Other Summary Purpose Family History No Family History Records FoundNo Family History Records FoundNo Family History Records Found Advance Directives No Advanced Directives Records FoundNo Advanced Directives Records FoundNo Advanced Directives Records Found Additional Source Comments INFORMATION SOURCE (unrecogn ized section and content) DATE CREATED AUTHOR 09/12/2021 [facility] DATE CREATED AUTHOR AUTHOR'S ORGANIZ ATION 05/21/2022 [facility] DATE CREATED AUTHOR AUTHOR'S ORGANIZ ATION 03/07/2024 [facility] EP[employer] Care Teams (unrecognized sec tion and content) Team Status: Inactive Member Role Status Dates Dee Buchanan MD Attending Provider 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 [facility]. provides no warranty or guarantee of the accuracy or completeness of information in this document.
[2024-03-17 15:03] VITALS: TEMP 36.4
[2024-03-17 15:04] VITALS: BP 112/74; PULSE 73
== END 2024-03-17 15:30 | disposition home or self-care (01) ==
LOC: FBCO 09:01 → FBC 14:40
PROVIDERS: PCP Family Medicine; Visit Provider Obstetrics & Gynecology
DX: O16.3 Unspecified maternal hypertension, third trimester (principal); Z3A.33 33 weeks gestation of pregnancy
CPT/HCPCS: 76818

== ENCOUNTER 2024-03-21 05:21 | Outpatient (OUT) | payer OTHER, SELFPAY ==
--- OUTSIDE RECORDS SUMMARY | 2024-03-21 05:24 | XMS_ITS | CCD ---
Author Organization [facility] Care Team Providers Care Ceo Name Role Phone JENNYFER, DR OSPINA Admitting [...] Consulting Unavailable MD Dee Buchanan Attending Provider [phone] Dee Buchanan Attending Unavailable Dee Buchanan Admitting Unavailable Dee Buchanan Unavailable Verito Lamb MD Primary Care Provider LORENE PLASENCIA Attending Unavailable LORENE PLASENCIA Attending Unavailable LORENE PLASENCIA Attending Unavailable SANGEETHA GRAY Attending Unavailable AMANDA MARTINEZ Attending Unavailable JENNYFERANAI Garcia Attending Unavailable JENNYFERANAI Garcia Attending Unavailable HEMLORENE MANDEL Attending Unavailable AMANDA MARTINEZ Attending Unavailable AMANDA MARTINEZ Attending Unavailable JENNYFERANAI OLIVA Attending Unavailable JUAN AMANDA Attending Unavailable JUAN AMANDA Attending Unavailable JUAN AMANDA Attending Unavailable Allergies Allergy Classification Reported Allergen(s) Allergy Type Date of Onset Reaction(s) Facility (1 source) Cephalexin Drug Allergy [facility] Repository (20 sources) ARIPiprazole Drug Allergy 3 [facility] Work Phone: (20 sources) cariprazine Drug Allergy 3 [facility] (20 sources) Cephalexin Drug Allergy 3 Unknown [facility] (20 sources) Propofol Drug Allergy 3 Unknown [facility] (20 sources) Flavoring Agent Allergy to substance 3 Unknown [facility] Healthcare (20 sources) Mosquito (Diagnostic) Drug Allergy 3 Unknown [facility] Medications Current Medications Medication Drug Class(es) Dates Sig (Normalized) Sig (Original) busPIRone hydrochloride 15 mg oral tablet (20 sources) Start: 11-23-2023 take 1 tablet by mouth once daily busPIRone (Buspar) 15 MG tablet Indications: Generalized anxiety disorder (CMS/HCC) Take 1 tablet (15 mg) by mouth Daily 11/23/2023 Active Start: 03-23-2023 End: 03-01-2024 take 1 tablet by mouth once daily busPIRone (Buspar) 15 MG tablet Indications: Generalized anxiety disorder (CMS/HCC) Take 1 tablet (15 mg) by mouth Daily 11/23/2023 Active cetirizine hydrochloride 10 mg oral tablet (20 sources) Histamine-1 Receptor Antagonist take 1 tablet by mouth once daily cetirizine (ZyrTEC) 10 MG tablet Take 10 mg by mouth Daily Active fluticasone propionate 0.05 mg/actuat metered dose nasal spray (20 sources) Corticosteroid take 1 spray(s) nasal route once daily as needed fluticasone (Flonase) 50 MCG/ACT nasal spray Administer 1 spray into each nostril Daily Shake gently. Before first use, prime pump. After use, clean tip and replace cap. PRN Active labetalol hydrochloride 100 mg oral tablet (9 sources) beta-Adrenergic Adina Start: End: take 1 tablet by mouth in the morning labetalol (Normodyne) 100 MG tablet Indications: Hypertension affecting in third trimester Take 1 tablet (100 mg) by mouth in the morning and 1 tablet (100 mg) before bedtime. 60 tablet 11 03/01/2024 03/01/2025 Active 24 hr loratadine 10 mg / pseudoephedrine sulfate 240 mg extended release oral tablet (6 sources) alpha-Adrenergic Agonist End: take 10-240 mg by mouth every twenty-four hours in the morning loratadine-pseudoep hedrine ER (Claritin-D 24-hour) 10-240 MG 24 hr tablet Take 1 tablet by mouth in the morning. Do not crush, chew, or split. . 11/23/2023 Discontinued (Other) Magnesium (6 sources) Start: End: take 1 tablet by mouth once daily magnesium 200 MG tablet Indications: Atypical migraine (CMS/HCC) Take 1 tablet (200 mg) by mouth Daily 90 tablet 10/11/2023 11/23/2023 Discontinued (Other) Start: 10-11-2023 End: 01-09-2024 take 1 tablet by mouth once daily magnesium 200 MG tablet Indications: Atypical migraine (CMS/HCC) Take 1 tablet (200 mg) by mouth Daily 90 tablet 10/11/2023 01/09/2024 Active MV & Min w/FA-DHA ([facility] G[facility] PO) (20 sources) take 1 tablet by mouth once daily MV & Min w/FA-DHA ([facility] PO) Take 1 tablet by mouth 1 (one) time each day Active Progesterone 200 MG suppository (6 sources) Start: 08-31-2023 End: 11-23-2023 Progesterone 200 MG suppository Indications: History of miscarriage Insert 200 mg into the vagina at bedtime Insert suppository vaginally every night at bedtime until 12 weeks gestation 30 suppository 2 08/31/2023 11/23/2023 Discontinued (Other) Start: 08-31-2023 End: 11-29-2023 Progesterone 200 MG supposit ory Indications: History of miscarriage Insert 200 mg into the vagina at bedtime Insert suppository vaginally every night at bedtime until 12 weeks gestation 30 suppository 2 08/31/2023 11/29/2023 Active 24 hr venlafaxine 37.5 mg extended release oral capsule (20 sources) Serotonin and Norepinephrine Reuptake Inhibitor Start: 11-23-2023 End: 11-22-2024 take 1 capsule by mouth once daily venlafaxine XR (Effexor XR) 37.5 MG 24 hr capsule Indications: Mood disorder (CMS/HCC) Take 1 capsule (37.5 mg) by mouth Daily Do not crush or chew. 30 capsule 11 11/23/2023 11/22/2024 Active Completed/Discontinued Medications Medication Drug Class(es) Dates Sig (Normalized) Sig (Original) 12 hr buPROPion hydrochloride 100 mg extended release oral tablet (4 sources) Aminoketone Start: 06-16-2023 End: 11-22-2023 take 1 tablet by mouth every twelve hours in the morning buPROPion SR (Wellbutrin SR) 100 MG 12 hr tablet Indications: Generalized anxiety disorder (CMS/HCC) Take 1 tablet (100 mg) by mouth in the morning and 1 tablet (100 mg) before bedtime. 200 tablet 3 06/16/2023 11/22/2023 Discontinued (Other) take 1 tablet by claudia th every twelve hours buPROPion HCl 100 MG 1 tablet Orally Twi ce a day Active triamcinolone acetonide 40 mg/ml injectable suspension (1 source) Corticosteroid Start: 05-11-2022 Kenalog-40 Apr, 20 mg Problems Active Problems Problem Classification Problem Date Documented Date Episodic/Chronic Allergic reactions (20 sources) Atopic dermatitis; Translations: [Atopic dermatitis, unspecified] Onset: 08-18-2022 08-18-2022 Chronic Anxiety disorders (20 sources) Generalized anxiety disorder; Translations: [Generalized anxiety disorder] Onset: 03-23-2023 03-23-2023 Chronic Conditions associated with dizziness or vertigo (4 sources) Lightheadedness; Translations: [Dizziness and giddiness] 03-01-2024 Episodic Esophageal disorders (20 sources) Gastroesophageal reflux disease without esophagitis; Translations: [Gastro-esophageal reflux disease without esophagitis] Onset: 08-18-2022 08-18-2022 Chronic Hypertension complicating ; childbirth and the puerperium (2 sources) Hypertension complicating ; Translations: [Unspecified maternal hypertension, third trimester] 03-01-2024 Chronic Hypertension complicating ; childbirth and the puerperium (2 sources) -induced hypertension; Translations: [Gestational [-induced] hypertension without significant proteinuria, unspecified trimester] 03-01-2024 Episodic Mood disorders (20 sources) Moderately severe depression; Translations: [Moderately severe [...] Episodic Other nutritional; endocrine; and metabolic disorders (20 sources) Body mass index 30+ - obesity; Translations: [Obesity, unspecified] Onset: 08-18-2022 08-18-2022 Chronic Other and delivery including normal (14 sources) Second trimester ; Translations: [Encounter for supervision of normal , unspecified, second trimester] 12-20-2023 Episodic Other screening for suspected conditions (not mental disorders or infectious disease) (10 sources) Encounter for screening for malignant neoplasm of cervix; Translations: [Patient encounter status] Onset: 08-10-2021 Episodic Other upper respiratory disease (20 sources) Seasonal allergic rhinitis; Translations: [Other seasonal allergic rhinitis] Onset: 08-18-2022 08-18-2022 Chronic Residual codes; unclassified (2 sources) Restlessness and agitation; Translations: [Restlessness and agitation] 11-23-2023 Chronic Residual codes; unclassified (2 sources) Gestation period, 20 weeks; Translations: [20 weeks gestation of ] 12-20-2023 Episodic Residual codes; unclassified (2 sources) Gestation period, 24 weeks; Translations: [24 weeks gestation of ] 01-17-2024 Episodic Residual codes; unclassified (4 sources) Gestation period, 31 weeks; Translations: [31 weeks gestation of ] 03-01-2024 Episodic Residual codes; unclassified (2 sources) Gestation period, 33 weeks; Translations: [33 weeks gestation of ] 03-19-2024 Episodic Unclassified (1 source) Pain in left wrist; Translations: [Pain in left wrist] Onset: 05-11-2022 Viral infection (1 source) COVID-19; Translations: [COVID-19] Onset: 12-17-2020 Past or Other Problems Problem Classification Problem Date Documented Date Episodic/Chronic Immunizations and screening for infectious disease (3 sources) Encounter for screening for human papillomavirus (HPV); Translations: [Exposure to sexually transmissible disorder] Onset: 08-13-2021 11-22-2023 Episodic Nausea and vomiting (4 sources) Nausea with vomiting, unspecified; Translations: [NAUSEA WITH VOMITING UNSPECIFIED] Onset: 12-08-2020 Episodic Other connective tissue disease (20 sources) Ganglion cyst of left dorsal wrist; Translations: [Ganglion, left wrist] Onset: 08-18-2022 08-18-2022 Episodic Other female genital disorders (2 sources) Vaginal discharge; Translations: [Other specified noninflammatory disorders of vagina] 11-22-2023 Episodic Other lower respiratory disease (3 sources) Cough; Translations: [COUGH] Onset: 12-03-2020 Episodic Other upper respiratory disease (20 sources) Allergic rhinitis; Translations: [Allergic rhinitis, unspecified] Onset: 08-18-2022 Resolved: 01-05-2023 01-05-2023 Chronic Other upper respiratory infections (20 sources) Sinusitis; Translations: [Chronic sinusitis, unspecified] Onset: 08-18-2022 Resolved: 01-05-2023 01-05-2023 Chronic Otitis media and related conditions (20 sources) Dysfunction of eustachian tube; Translations: [Unspecified Eustachian tube disorder, unspecified ear] Onset: 08-18-2022 08-18-2022 Episodic Residual codes; unclassified (2 sources) Gestation period, 17 weeks; Translations: [17 weeks gestation of ] 11-23-2023 Episodic Viral infection (20 sources) COVID-19; Translations: [Other specified viral infection] Onset: 08-18-2022 08-18-2022 Episodic Results Test Name Value Interpretation Reference Range Facility Urinalysis macro (dipstick) panel (U)on 03-19-2024 Bilirubin, UA Positive Negative - 4(70) +++ mg/dL [facility] Comment on above: small Blood, UA Positive Negative - 50 Neno/mcL [facility] Comment on above: trace Clarity, UA Cloudy [facility] Color, UA Marilyn [facility] Glucose, UA Negative Negative - 2000(110) ++++ mg/dL [facility] Interpretation and review of laboratory results Abnormal [facility] Ketones, UA Negative Negative - 160(16) ++++ mg/dL [facility] Leukocytes, UA Trace Negative - 500+++ Virgie/mcL [facility] Nitrite, UA Negative Negative - Positive [facility] pH, UA 6 5 - 9 [facility] Protein, UA Positive Negative - 1999(20) ++++ mg/dL [facility] Comment on above: 30 Spec Grav, UA 1.03 1 - 1.03 [facility] Urobilinogen, UA 0.2 0.2 - 12 mg/dL [facility] Urinalysis macro (dipstick) panel (U)on 03-05-2024 Bilirubin, UA Negative Negative - 4(70) +++ mg/dL [facility] Blood, UA Negative Negative - 50 Neno/mcL [facility] Clarity, UA Clear [facility] re Color, UA Yellow [facility] e Glucose, UA Negative Negative - 1999(110) ++++ mg/dL [facility] Interpretation and review of laboratory results Abnormal [facility] Ketones, UA Negative Negative - 160(16) ++++ mg/dL [facility] Leukocytes, UA Positive Negative - 500+++ Virgie/mcL [facility] Comment on above: small Nitrite, UA Negative Negative - Positive [facility] pH, UA 6 5 - 9 [facility] Protein, UA Negative Negative - 1999(20) ++++ mg/dL [facility] Spec Grav, UA 1.015 1 - 1.03 [facility] Urobilinogen, UA 0.2 0.2 - 12 mg/dL [facility] CCF APTTon 03-02-2024 aPTT Coag (Bld) [Time] 23.9 s [facility] No Panel Informationon 03-02 [facility] SRMCOH PROTHROMBIN TIME INR W/O COUMon 03-02-2024 PT Coag (PPP) [Time] 9.9 s [facility] TB INR 0.93 [facility] Comment on above: DESIRED INR: 2.0-3.0 CONDITIONS NOT LISTED BELOW 2.5-3.5 FOR PROSTHETIC HEART VALVE REPLACEMENT 2.5-3.5 RECURRENT THROMBOSIS Urinalysis macro (dipstick) panel (U)on 03-01-2024 Bilirubin, UA Negative Negative - 4(70) +++ mg/dL [facility] Blood, UA Negative Negative - 50 Neno/mcL [facility] Clarity, UA Clear [facility] Color, UA Yellow [facility] Glucose, UA Negative Negative - 1999(110) ++++ mg/dL [facility] Interpretation and review of laboratory results Abnormal [facility] Ketones, UA Negative Negative - 160(16) ++++ mg/dL [facility] Leukocytes, UA Positive Negative - 500+++ Virgie/mcL [facility] Comment on above: small Nitrite, UA Negative Negative - Positive [facility] pH, UA 7 5 - 9 [facility] Protein, UA Trace Negative - 1999(20) ++++ mg/dL [facility] Spec Grav, UA 1.02 1 - 1.03 [facility] Urobilinogen, UA 0.2 0.2 - 12 mg/dL [facility] GLUCOSE 1 HOURon 01-25-2024 Glucose [Mass/Vol] 131 mg/dL High NINF - 13 0 mg/dL [facility] Interpretation and review of laboratory results Abnormal [facility] Urinalysis macro (dipstick) panel (U)on 01-17-2024 Bilirubin, UA Negative Negative - 4(70) +++ mg/dL [facility] Blood, UA Negative Negative - 50 Neno/mcL [facility] Clarity, UA Clear [facility] Color, UA Yellow [facility] Glucose, UA Negative Negative - 1999(110) ++++ mg/dL [facility] Interpretation and review of laboratory results Abnormal [facility] Ketones, UA Negative Negative - 160(16) ++++ mg/dL [facility] Leukocytes, UA Trace Negative - 500+++ Virgie/mcL [facility] Nitrite, UA Negative Negative - Positive [facility] pH, UA 6 5 - 9 [facility] Protein, UA Negative Negative - 1999(20) ++++ mg/dL [facility] Spec Grav, UA 1.02 1 - 1.03 [facility] Urobilinogen, UA 1.0 0.2 - 12 mg/dL [facility] Urinalysis macro (dipstick) panel (U)on 12-20-2023 Bilirubin, UA Negative Negative - 4(70) +++ mg/dL [facility] Blood, UA Negative Negative - 50 Neno/mcL [facility] Clarity, UA Clear [facility] Color, UA Yellow [facility] Glucose, UA Negative Negative - 1999(110) ++++ mg/dL [facility] Interpretation and review of laboratory results Abnormal [facility] Ketones, UA Negative Negative - 160(16) ++++ mg/dL [facility] Leukocytes, UA Trace Negative - 500+++ Virgie/mcL [facility] Nitrite, UA Negative Negative - Positive [facility] pH, UA 6.5 5 - 9 [facility] e Protein, UA Negative Negative - 1999(20) ++++ mg/dL [facility] Spec Grav, UA 1.025 1 - 1.03 [facility] Urobilinogen, UA 0.2 0.2 - 12 mg/dL [facility] AFP, SERUM, OPEN SPINA BIFID Aon 12-11-2023 AFP MOM 0.79 . [facility] AFP VALUE 34.7 ng/mL . [facility] COMMENT: Comment . [facility] Comment on above: Treva Gong , Ph.D., [facility] Director References: Available Upon Request. Multiples Of Median Cutoffs For AFP Elevations Banuelos 2.5 Black 2.8 IDD 2.0 Twins 4.5 Abbreviation Definitions IDD - Insulin Dep Diabetes OSBR - Open Spina Bifida Risk For further inquiries contact [employer] [facility] at [phone]. This test was developed and its performance characteristics determined by [employer]. It has not been cleared or approved by the Food and Drug Administration. Performed at: [facility], [place], [place] [id number] Recruiter Account Manager: Maira Jones [facility], Phone: [phone] GEST. AGE ON COLLECTION DATE 19.3 . weeks [facility] GESTAT. AGE BASED ON LMP . [facility] Comment on above: Recalculations are n ot recommended when gestational dating by LMP and ultrasound are within 10 days. INSULIN DEP DIABETES No . [facility] INTERPRETATION Comment . [facility]alt [facility] Comment on above: Interpretation: Scre en Negative This result is screen negative for OSB. The AFP MoM calculated is based on the gestational age provided. MS-AFP can identify up to 80% of open neural tube defects. Closed neural tube defects and some open defects may not be detected by this test. This test does not screen for Down Syndrome or Trisomy 18. If screening for Down Syndrome or Trisomy 18 is desired, contact [facility] to discuss available options. The [employer] recommends amniocentesis be offered to women age 35 and older. [age] [facility] [employer] MULTIPLE GESTATION No . [facility] [address] [place] [id number] . [facility] Healt [facility]care RACE . [facility] [employer] RESULTS Report . [facility] [employer] TEST RESULTS: Negative . [facility] JDLab [facility] WEIGHT 188 . lbs [facility] N N LMP [id number] [phone] N 1 Y 188 N N N N N White/ [facility] [employer] IGP,APTIMA HPV,AGE GDLNon AGE GDLN ACOG TESTING Note . [facility] Comment on above: TESTS RESULT FLAG UN ITS REF RANGE LAB Clinician Provided Cytology Information Source.............Cervix No. of containers..01 ThinPrep Vial Age Algo ACOG Madonna... FLAG LEGEND: L-Low Normal,H-High Normal,LL-Alert Low,HH-Alert High <-Panic Low,>-Panic High,A-Abnormal,AA-Critical Abnormal Performed at: 01 =G [facility] [address] [place] [address] Tierra Morales MD, IGP, RFX APTIMA HPV ASCU Note . [facility] Comment on above: TESTS RESULT FLAG UN ITS REF RANGE LAB DIAGNOSIS: 02 NEGATIVE FOR INTRAEPITHELIAL LESION OR MALIGNANCY. Specimen adequacy: 02 Satisfactory for evaluation. No endocervical component is identified. Performed by: Anurag Blanc, Pin Drafter Operator ([facility]) . 02 Note: Note 02 The Pap smear is a screening test designed to aid in the detection of premalignant and malignant conditions of the uterine cervix. It is not a diagnostic procedure and should not be used as the sole means of detecting cervical cancer. Both false-positive and false-negative reports do occur. Test Methodology: Note 02 This liquid based ThinPrep(R) pap test was screened with the use of an image guided system. . 02 The HPV DNA reflex criteria were not met with this specimen result therefore, no HPV testing was performed. FLAG LEGEND: L-Low Normal,H-High Normal,LL-Alert Low,HH-Alert High <-Panic Low,>-Panic High,A-Abnormal,AA-Critical Abnormal Performed at: 02 WB [facility] [place] [address] [place] [address] Tierra Morales MD, Performed at: =G - [facility] [address] [facility] [place] [phone] Recruiter Account Manager: Tierra Morales MD, Phone: [phone] Performed at: - [facility] [place] [address] [facility] [place] [id number] Recruiter Account Manager: Tierra Morales MD, Phone: [phone] [facility] Urinalysis macro (dipstick) panel (U)on 11-22-2023 Bilirubin, UA Negative Negative - 4(70) +++ mg/dL [facility] Blood, UA Negative Negative - 50 Neno/mcL [facility] Clarity, UA Clear [facility] Color, UA Yellow [facility] Glucose, UA Negative Negative - 1999(110) ++++ mg/dL [facility] Interpretation and review of laboratory results Normal [facility] Ketones, UA Negative Negative - 160(16) ++++ mg/dL [facility] Leukocytes, UA Negative Negative - 500+++ Virgie/mcL [facility] Nitrite, UA Negative Negative - Positive [facility] pH, UA 6.5 5 - 9 [facility] Protein, UA Negative Negative - 1999(20) ++++ mg/dL [facility] Spec Grav, UA 1.025 1 - 1.03 [facility] Urobilinogen, UA 1.0 0.2 - 12 mg/dL [facility] XR wrist LT min 3V*on 2022 XR wrist LT min 3V* [facility] [place] [address] XRay Report Signed Patient: Nazia Harper MR#: [id number] 67 : 1995 Acct:[id number] Age/Sex: 26 / F ADM Date: 05/11/22 [place] [facility] [place]: Type: [facility] Attending Dr: Dee Buchanan MD Copies [...] Travis Jr., D.OJuanis05/11/2022 12:18 PM Dictation Location: [facility]- Transcribed By: [facility] 05/11/22 1218 Dictated By: Tan Travis Jr, DO 05/11/22 1217 Signed By: 05/11/22 1218 Normal [facility] XR wrist LT min 3V* [facility] [employer] Other XR wrist LT min 3V* [facility] [employer] Other XR wrist LT min 3V* [address] [place] [address] [employer] Other XR wrist LT min 3V* [place] [address] [employer] Other XR wrist LT min 3V* XRay Report [employer] Other XR wrist LT min 3V* Signed [employer] Other XR wrist LT min 3V* Patient: Nazia Harper MR#: [id number] [employer] Other XR wrist LT min 3V* 67 [employer] Other XR wrist LT min 3V* : 1995 Acct:[id number] [employer] Other XR wrist LT min 3V* Age/Sex: 26 / F ADM Date: 05/11/22 [employer] Other XR wrist LT min 3V* Loc: [facility] Room: Type: [facility] [employer] Other XR wrist LT min 3V* Attending Dr: Dee Buchanan MD [employer] Other XR wrist LT min 3V* Copies to: Dee Buchanan MD [employer] Other XR wrist LT min 3V* Ordering Provider: Dee Buchanan MD [employer] Other XR wrist LT min 3V* Date of Service: 05/11/22 [employer] Other XR wrist LT min 3V* XR/XR wrist LT min 3V*: PAIN [employer] Other XR wrist LT min 3V* LEFT WRIST - 4 views [employer] Other XR wrist LT min 3V* CLINICAL HISTORY: Ganglion cyst posterior aspect at the level of the carpals. [employer] Other XR wrist LT min 3V* COMPARISON: None [employer] Other XR wrist LT min 3V* FINDINGS: [employer] Other XR wrist LT min 3V* No focal soft tissue abnormality is noted. No acute bony process is seen. Carpal bones appear [employer] Other XR wrist LT min 3V* unremarkable. [employer] Other XR wrist LT min 3V* XR/XR wrist LT min 3V* [employer] Other XR wrist LT min 3V* IMPRESSION: [employer] Other XR wrist LT min 3V* NO ACUTE BONY PROCESS. [employer] Other XR wrist LT min 3V* Impression dictated by: Tan Travis Jr., D.OJuanis05/11/2022 12:18 PM [employer] Other XR wrist LT min 3V* Dictation Location: [place] [address] [employer] Other XR wrist LT min 3V* Transcribed By: JOSE ALEJANDRO 05/11/22 1218 [employer] Other XR wrist LT min 3V* Dictated By: Tan Travis Jr, DO 05/11/22 1217 [employer] Other XR wrist LT min 3V* Signed By: [employer] Other XR wrist LT min 3V* 05/11/22 1218 [employer] Other PAP ACOG PANEL 2: 21 to 29on 08-15-2021 . . Normal [facility] Comment on above: Result Comment: Perf ormed at: BA Performed By: #### [id number] #### [facility] [address] [place] [address] Dr. Alek Fu Age Gdln ACOG Testing [facility] Comment on above: Performed By: #### [id number] #### [facility] [address] [place] [address] Dr. Alek Fu DIAGNOSIS: Comment [facility] Comment on above: Result Comment: NEGA TIVE FOR INTRAEPITHELIAL LESION OR MALIGNANCY. Performed at: BA Performed By: #### [id number] #### [facility] [address] [place] [address] Dr. Alek Fu Methodology: Comment [facility] Comment on above: Result Comment: This liquid based ThinPrep(R) pap test was screened with the use of an image guided system. Performed at: WB Performed By: #### [id number] #### [facility] [address] [place] [address] Dr. Alek Fu Note: Comment [facility] Comment on above: Result Comment: The Pap smear is a screening test designed to aid in the detection of premalignant and malignant conditions of the uterine cervix. It is not a diagnostic procedure and should not be used as the sole means of detecting cervical cancer. Both false-positive and false-negative reports do occur. . Performed at: WB Performed By: #### [id number] #### [facility] [address] [place] [address] Dr. Alek Fu Performed by: Comment [facility] Comment on above: Result Comment: Elen Carrillo, Pin Drafter Operator (ASCP) Performed at: BA Performed By: #### [id number] #### [facility] [address] [place] [address] Dr. Alek Fu Reflex Criteria: Comment Normal [facility] Comment on above: Result Comment: The HPV DNA reflex criteria were not met with this specimen result therefore, no HPV testing was performed. . Performed at: BA Performed By: #### [id number] #### [facility] [address] [place] [address] Dr. Alek Fu Specimen adequacy: Comment Normal [facility] Comment on above: Result Comment: Sati sfactory for evaluation. Endocervical and/or squamous metaplastic cells (endocervical component) are present. Performed at: BA Performed By: #### [id number] #### [facility] [address] [place] [address] Dr. Alek Fu XR KNEE SABRINA 4V [...] [place] Date: 2021-07-17 17:09 Normal [facility] CBC AUTO DIFFon 12-08-2020 BASO # 0.0 103/ul Normal 0.0-0.1 [facility] Comment on above: Performed By: #### C BC #### [facility] [address] [place] [address] Dr. Alek Fu Basophils/100 WBC (Bld) 0.2 % Normal 0.2-2.0 [facility] Comment on above: Performed By: #### C BC #### [facility] [address] [place] [address] Dr. Alek Fu EO # 0.0 103/ul Normal 0.0-0.7 [facility] Comment on above: Performed By: #### C BC #### [facility] [address] [address] [address] Alek Fu Eosinophils/100 WBC (Bld) 0.6 % Critically low 0.9-7.0 [facility] Comment on above: Performed By: #### C BC #### [facility] [address] [address] [address] Alek Fu Erythrocyte distribution width (RBC) [Ratio] 12.4 % Normal 11.0-15.0 [facility] Comment on above: Performed By: #### C BC #### [facility] [address] [place] [address] Dr. Alek Fu Hematocrit (Bld) [Volume fraction] 44.3 % Normal 36.0-48.0 [facility] Comment on above: Performed By: #### C BC #### [facility] [address] [place] [address] Dr. Alek Fu Hemoglobin (Bld) [Mass/Vol] 15.4 g/dL Normal 12.0-16.0 [facility] Comment on above: Performed By: #### C BC #### [facility] [address] [place] [address] Dr. Alek Fu IG # 0.04 10e3/ul Critically high 0.00-0.03 [facility] Comment on above: Performed By: #### C BC #### [facility] [address] [place] [address] Dr. Alek Fu IG % 0.6 % Critically high 0.0-0.5 [facility] Comment on above: Performed By: #### C BC #### [facility] [address] [place] [address] Dr. Alek uF LYMPH # 3.2 103/ul Normal 1.2-3.8 [facility] Comment on above: Performed By: #### C BC #### [facility] [address] [place] [address] Dr. Alek Fu Lymphocytes/100 WBC (Bld) 50.2 % Normal 20.5-60.0 [facility] Comment on above: Performed By: #### C BC #### [facility] [address] [place] [address] Dr. Alek Fu MANUAL DIFF REQ NO Normal [facility] Comment on above: Performed By: #### C BC #### [facility] [address] [place] [address] Dr. Alek Fu MCH (RBC) [Entitic mass] 28.7 pg Normal 26.7-34.0 [facility] Comment on above: Performed By: #### C BC #### [facility] [address] [place] [address] Dr. Alek Fu MCHC (RBC) [Mass/Vol] 34.8 g/dL Normal 29.9-35.2 [facility] Comment on above: Performed By: #### C BC #### [facility] [address] [place] [address] Dr. Alek Fu MCV (RBC) [Entitic vol] 82.5 fL Normal 81.0-99.0 [facility] Comment on above: Performed By: #### C BC #### [facility] [address] [place] [address] Dr. Alek Fu MONO # 0.6 103/ul Normal 0.3-0.8 [facility] Comment on above: Performed By: #### C BC #### [facility] [address] [place] [address] Dr. Alek Fu Monocytes/100 WBC (Bld) 10.0 % Normal 1.7-12.0 [facility] Comment on above: Performed By: #### C BC #### [facility] [address] [place] [address] Dr. Alek Fu NEUT # 2.4 103/ul Normal 1.4-6.5 [facility] Comment on above: Performed By: #### C BC #### [facility] [address] [place] [address] Dr. Alek Fu Neutrophils/100 WBC (Bld) 38.4 % Critically low 43.0-75.0 [facility] Comment on above: Performed By: #### C BC #### [facility] [address] [place] [address] Dr. Alek Fu Platelet mean volume (Bld) [Entitic vol] 9.9 fL Normal 9.5-13.5 [facility] Comment on above: Performed By: #### C BC #### [facility] [address] [place] [address] Dr. Alek Fu PLT 206 103/ul Normal 150-450 [facility] Comment on above: Performed By: #### C BC #### [facility] [address] [place] [address] Dr. Alek Fu RBC 5.37 106/ul Normal 4.20-5.40 [facility] Comment on above: Performed By: #### C BC #### [facility] [address] [place] [address] Dr. Alek Fu WBC 6.3 103/ul Normal 4.0-11.0 [facility] Comment on above: Performed By: #### C BC #### [facility] [address] [place] [address] Dr. Alek Fu ER URINE PROFILEon 1 Bilirubin Ql (U) Negative Normal NEGATIVE [facility] Comment on above: Performed By: #### E RUR #### [facility] [address] [place] [address] Dr. Alek Fu Clarity (U) CLEAR Normal CLEAR [facility] Comment on above: Performed By: #### E RUR #### [facility] [address] [place] [address] Dr. Alek Fu Color (U) YELLOW Normal YELLOW [facility] Comment on above: Performed By: #### E RUR #### [facility] [address] [place] [address] Dr. Alek Fu ERUD A micrscopic examination will be performed if indicated. Normal [facility] Comment on above: Performed By: #### E RUR #### [facility] [address] [place] [address] Dr. Alek Fu Glucose Ql (U) Negative Normal NEGATIVE The [facility] Comment on above: Performed By: #### E RUR #### [facility] [address] [place] [address] Dr. Alek Fu Hemoglobin Ql (U) TRACE-INTACT Abnormal NEGAT[facility] Comment on above: Performed By: #### E RUR #### [facility] [address] [place] [address] Dr. Alek Fu Ketones Ql (U) TRACE Abnormal NEGATIVE [facility] Comment on above: Performed By: #### E RUR #### [facility] [address] [place] [address] Dr. Alek Fu LEUKOCYTES Negative Normal NEGATIVE [facility] Comment on above: Performed By: #### E RUR #### [facility] [address] [place] [address] Dr. Alek Fu Nitrite Ql (U) Negative Normal NEGATIVE [facility] Comment on above: Performed By: #### E RUR #### [facility] [address] [place] [address] Dr. Alek Fu pH (U) 6.0 [pH] Normal 5-9 [facility] Comment on above: Performed By: #### E RUR #### [facility] [address] [place] [address] Dr. Alek Fu SPEC GRAVITY 1.015 Normal 1.005-<=1.[address] [facility] Comment on above: Performed By: #### E RUR #### [facility] [address] [place] [address] Dr. Alek Fu UA PROTEIN Negative Normal NEGATIVE/ TRACE [facility] Comment on above: Performed By: #### E RUR #### [facility] [address] [place] [address] Dr. Alek Fu UR MICRO IND NOT INDICATED Normal [facility] Comment on above: Performed By: #### E RUR #### [facility] [address] [place] [address] Dr. Alek Fu Urobilinogen Qn (U) 0.2 {Roya'U}/dL Normal 0.2 - 1.0 [facility] Comment on above: Performed By: #### E RUR #### [facility] [address] [address] [address] Alek Fu URon 12-08-2020 , QUAL Negative Normal NEGATIVE [facility] Comment on above: Performed By: #### P REGU #### [facility] [address] [address] [address] Alek Fu PROF CHEM 8 (BAS METB)on Anion gap [Moles/Vol] 13.0 mmol/L Normal [facility] Comment on above: Performed By: #### B MP #### [facility] [address] [address] [address] Alek Fu Calcium [Mass/Vol] 9.0 mg/dL Normal 8.4-10.2 [facility] Comment on above: Performed By: #### B MP #### [facility] [address] [place] [address] Dr. Alek Fu Chloride [Moles/Vol] 103 mmol/L Normal 98-107 [facility] Comment on above: Performed By: #### B MP #### [facility] [address] [address] [address] Alek Fu CO2 [Moles/Vol] 25.0 mmol/L Normal 22.0-30.0 [facility] Comment on above: Performed By: #### B MP #### [facility] [address] [place] [address] Dr. Alek Fu Creatinine [Mass/Vol] 0.96 mg/dL Normal 0.52-1.04 [facility] Comment on above: Performed By: #### B MP #### [facility] [address] [address] [address] Alek Fu EGFR-AF ZIMBABWEAN >60 Normal >=60 [facility] Comment on above: Performed By: #### B MP #### [facility] [address] [place] [address] Dr. Alek Fu EGFR-NON AF ZIMBABWEAN >60 Normal >=60 [facility] Comment on above: Performed By: #### B MP #### [facility] [address] [address] [address] Alek Fu Glucose [Mass/Vol] 99 mg/dL Normal 74-106 [facility] Comment on above: Performed By: #### B MP #### [facility] [address] [address] [address] Alek Fu Potassium [Moles/Vol] 3.0 mmol/L Critically low 3.4-5.0 [facility] Comment on above: Performed By: #### B MP #### [facility] [address] [address] [address] Alek Fu Sodium [Moles/Vol] 138 mmol/L Normal 137-145 [facility] Comment on above: Performed By: #### B MP #### [facility] [address] [address] [address] Alek Fu Urea nitrogen [Mass/Vol] 11.0 mg/dL Normal 7.0-17.0 [facility] Comment on above: Performed By: #### B MP #### [facility] [address] [address] [address] Alek Fu Urea nitrogen/Creatinin e [Mass ratio] 11.5 mg/mg Normal [facility] Comment on above: Performed By: #### B MP #### [facility] [address] [address] [address] Alek Fu [facility]19 SARS-CoV-2 (COVID-19) RNA SANTANA+probe Ql (Unsp spec) Detected Critically abnormal NOT DETECTED [facility] Comment on above: Result Comment: This test is not yet approved or cleared by the [place] FDA. When there are no FDA-approved or cleared tests available, and other criteria are met, FDA can make tests available under an emergency access mechanism called an Emergency Use Authorization (EUA). The EUA for this test is supported by the Belt [employer] Operator of Health and Human Service's (HHS's) [...] longer be used). Performed By: #### [facility] #### [facility] [address] [place] [address] Dr. Alek Fu Vital Signs Date Time Vital Sign Value Performing Clinician Mayelin cruz 03-19-2024 10:38-0500 Body mass index (BMI) [Ratio] 37.68 kg/m2 Amanda Juan PA Work Phone: [facility] 03-19-2024 10:38-0500 Body weight 93.44 kg Amanda Juan PA Work Phone: [facility] 03-19-2024 10:38-0500 Diastolic blood pressure 76 mm[Hg] Amanda Juan PA Work Phone: [facility] 03-19-2024 10:38-0500 Systolic blood pressure 122 mm[Hg] Amanda Morristown PA Work Phone: [facility] 03-05-2024 09:47-0500 Body mass index (BMI) [Ratio] 37.93 kg/m2 Amanda Juan PA Work Phone: [facility] 03-05-2024 09:47-0500 Body weight 94.08 kg Amanda [place] PA Work Phone: [facility] 03-05-2024 09:47-0500 Diastolic blood pressure 74 mm[Hg] Amanda [place] PA Work Phone: [facility] 03-05-2024 09:47-0500 Systolic blood pressure 110 mm[Hg] Amanda Juan PA Work Phone: [facility] 03-01-2024 11:46-0500 Body mass index (BMI) [Ratio] 37.57 kg/m2 Amanda Juan PA Work Phone: [facility] 03-01-2024 11:46-0500 Body weight 93.17 kg Amanda [place] PA Work Phone: [facility] 03-01-2024 11:46-0500 Diastolic blood pressure 90 mm[Hg] Amanda [place] PA Work Phone: [facility] 03-01-2024 11:46-0500 Systolic blood pressure 130 mm[Hg] Amanda [place] PA Work Phone: [facility] 02-20-2024 10:07-0500 Body mass index (BMI) [Ratio] 37.68 kg/m2 Anai Jennyfer DO Work Phone: [facility] 02-20-2024 10:07-0500 Body weight 93.44 kg Anai Jennyfer DO Work Phone: [facility] 02-20-2024 10:07-0500 Diastolic blood pressure 80 mm[Hg] Anai Jennyfer DO Work Phone: [facility] 02-20-2024 10:07-0500 Systolic blood pressure 122 mm[Hg] Anai Jennyfer DO Work Phone: [facility] 01-17-2024 10:15-0400 Body mass index (BMI) [Ratio] 36 kg/m2 Amanda Juan PA Work Phone: [facility] 01-17-2024 10:15-0400 Body weight 89.27 kg Amanda Juan PA Work Phone: [facility] 01-17-2024 10:15-0400 Diastolic blood pressure 70 mm[Hg] Amanda Juan PA Work Phone: [facility] 01-17-2024 10:15-0400 Systolic blood pressure 122 mm[Hg] Amanda Juan PA Work Phone: [facility] 12-20-2023 09:58-0400 Body mass index (BMI) [Ratio] 34.93 kg/m2 Amanda [place] PA Work Phone: [facility] 12-20-2023 09:58-0400 Body weight 86.64 kg Amanda [place] PA Work Phone: [facility] 12-20-2023 09:58-0400 Diastolic blood pressure 76 mm[Hg] Amanda [place] PA Work Phone: [facility] 12-20-2023 09:58-0400 Systolic blood pressure 124 mm[Hg] Amanda Martinez PA Work Phone: [facility] 11-23-2023 09:47-0400 Body height 157.5 cm Lorene Welchmer PA Work Phone: [facility] 11-23-2023 09:47-0400 Body mass index (BMI) [Ratio] 34.39 kg/m2 Lorene Hemmer PA Work Phone: [facility] 11-23-2023 09:47-0400 Body weight 85.28 kg Lorene Hemmer PA Work Phone: [facility] 11-23-2023 09:47-0400 Diastolic blood pressure 86 mm[Hg] Lorene Hemmer PA Work Phone: [facility] 11-23-2023 09:47-0400 Heart rate 81 /min Lorene Hemmer PA Work Phone: [facility] 11-23-2023 09:47-0400 Respiratory rate 16 /min Lorene Hemmer PA Work Phone: [facility] 11-23-2023 09:47-0400 SaO2% (BldA) [Mass fraction] 98 % Lorene Hemmer PA Work Phone: [facility] 11-23-2023 09:47-0400 Systolic blood pressure 124 mm[Hg] Lorene Hemmer PA Work Phone: [facility] 11-22-2023 09:29-0400 Body mass index (BMI) [Ratio] 34.41 kg/m2 Anai Jennyfer DO Work Phone: [facility] 11-22-2023 09:29-0400 Body weight 85.33 kg Anai Jennyfer DO Work Phone: [facility] 11-22-2023 09:29-0400 Diastolic blood pressure 74 mm[Hg] Anai Jennyfer DO Work Phone: [facility] 11-22-2023 09:29-0400 Systolic blood pressure 122 mm[Hg] Anai Jennyfer DO Work Phone: [facility] Encounters Encounter Date Encounter Type Care Provider Facility Start: 03-19-2024 End: 03-19-2024 Bamboo flowsheet Amanda Martinez PA Work Phone: [facility] Start: 03-19-2024 End: 03-19-2024 Bamboo flowsheet Amanda Martinez PA Work Phone: [facility] Start: 03-19-2024 End: 03-19-2024 flow sheet Amanda Martinez PA Work Phone: [facility] Comment on above: Third trimester preg gregor; 33 weeks gestation of Start: 03-19-2024 End: 03-19-2024 ambulatory AMANDA MARTINEZ Not Available Start: 03-05-2024 End: 03-05-2024 Bamboo flowsheet Amanda Martinez PA Work Phone: [facility] Start: 03-05-2024 End: 03-05-2024 Bamboo flowsheet Amanda Martinez PA Work Phone: [facility] Start: 03-05-2024 End: 03-05-2024 flow sheet Amanda Martinez PA Work Phone: [facility] Comment on above: 31 weeks gestation o f ; Third trimester Start: 03-05-2024 End: 03-05-2024 ambulatory AMANDA MARTINEZ Not Available Start: 03-02-2024 End: 03-02-2024 Clinisync Result Encounter Generic External Data Provider [facility] Unsolicited Start: 03-02-2024 End: 03-02-2024 Clinisync Result Encounter Generic External Data Provider [facility] Unsolicited Start: 03-01-2024 End: 03-01-2024 Bamboo flowsheet Amanda Martinez PA Work Phone: [facility] Start: 03-01-2024 End: 03-01-2024 Bamboo flowsheet Amanda Martinez PA Work Phone: [facility] Start: 03-01-2024 [...] [facility] Start: 01-17-2024 End: 01-17-2024 flow sheet Amanda ROMAN Work Phone: [facility] Comment on above: Diabetes mellitus [...] 12-20-2023 ambulatory AMANDA MARTINEZ Not Available Start: 12-09-2023 End: 12-11-2023 Clinisync Result Encounter Generic External Data Provider [facility] Unsolicited Start: 12-09-2023 End: 12-11-2023 Clinisync Result Encounter Generic External Data Provider [facility] Unsolicited Start: 11-25-2023 End: 11-25-2023 Telephone encounter Cecille De Loen MA [facility] Start: 11-23-2023 End: 11-23-2023 Bamboo flowsheet Lorene ROMAN Work Phone: [facility] Start: 11-23-2023 End: 11-23-2023 Bamboo flowsheet Lorene ROMAN Work Phone: [facility] Start: 11-23-2023 End: 11-23-2023 ambulatory LORENE PLASENCIA Not Available Start: 11-23-2023 End: 11-23-2023 Office outpatient visit 25 minutes Lorene ROMAN Work Phone: [facility] Comment on above: Agitation (Primary D x); Generalized anxiety disorder (CMS/HCC); Moderately severe depression (CMS/HCC); 17 weeks gestation of Start: 11-22-2023 End: 11-22-2023 Bamboo flowsheet Anai Jennyfer DO Work Phone: [facility] Start: 11-22-2023 End: 11-25-2023 Bamboo flowsheet Anai Jennyfer DO Work Phone: [facility] Start: 11-22-2023 End: 11-25-2023 Clinisync Result Encounter Generic External Data Provider [facility] Unsolicited Start: 11-22-2023 End: 11-22-2023 ambulatory ANAI JENNYFER Not Available Start: 11-22-2023 End: 11-22-2023 Patient encounter procedure Anai Burger DO Work Phone: [facility] Start: 11-22-2023 End: 11-22-2023 Periodic preventive med est patient 18-39 yrs Anai Burger DO Work Phone: [facility] Comment on above: Screening, , for anatomic survey; Well woman exam with routine gynecological exam; Second trimester ; Vaginal discharge; STD exposure; Mood disorder ([facility] Start: 10-24-2023 End: 10-24-2023 ambulatory ANAI JENNYFER [...] Start: 05-11-2022 End: 05-11-2022 ambulatory Dee Buchanan Facility:[facility] Start: 05-11-2022 End: 05-11-2022 ambulatory MD Dee Buchanan Work Phone: [facility] Work Phone: Start: 05-11-2022 End: 05-11-2022 Patient encounter procedure MD Dee Buchanan Work Phone: [facility] Start: 08-10-2021 End: 08-10-[address] ANAI BURGER Facility:[facility] Start: 07-17-2021 End: 07-18-[address] LORENE PLASENCIA Facility:[facility] Start: 12-08-2020 End: 12-08-[address] VERITO LAMB Facility:[facility] Start: 12-03-2020 End: 12-03-[address] VERITO LAMB Facility:[facility] Procedures Date Procedure Procedure Detail Performing Clinician Start: 03-19-2024 Urnls dip stick/tabl et rgnt non-auto w/o micrscp Amanda ROMAN Work Phone: Start: 03-05-2024 Urnls dip stick/tabl et rgnt non-auto w/o micrscp Amanda ROMAN Work Phone: Start: 03-02-2024 [facility] APTT Amanda ROMAN Work [...] w/o micrscp Amanda ROMAN Work Phone: Start: 12-09-2023 AFP, SERUM, OPEN SPI NA BIFIDA Anai Jennyfer DO Work Phone: Start: 11-22-2023 IGP,APTIMA HPV,AGE GDLN Anai Jennyfer DO Work Phone: Start: 11-22-2023 Urnls dip stick/tabl et rgnt non-auto w/o micrscp Anai Jennyfer DO Work Phone: Start: 05-11-2022 Plain X-ray of left wrist MD Dee Buchanan Work Phone: Plan of Treatment Date Care Activity Detail Author Start: 03-19-2024 End: 03-19-2024 Patient encounter procedure [facility] Comment on above: Arrived Start: 03-05-2024 End: 03-05-2024 Patient encounter procedure [facility] Comment on above: Arrived Start: 03-05-2024 End: 03-05-2024 Professional / ancillary services management 03/05/2024 9:00 AM EST Ancillary Procedure [facility] [address] [place] [id number] [facility] Start: 03-01-2024 End: 03-01-2025 Alanine aminotransferase [Enzymatic activity/volume] in Serum or Plasma ALT Lab Routine induced hypertension, antepartum Expected: 03/01/2024 (Approximate), Expires: 03/01/2025 [facility] Comment on above: Expected: 03/01/2024 (Approximate), Expires: 03/01/2025 Start: 03-01-2024 End: 03-01-2025 Aspartate aminotransferase [Enzymatic activity/volume] in Serum or Plasma AST Lab Routine induced hypertension, antepartum Expected: 03/01/2024 (Approximate), Expires: 03/01/2025 [facility] Comment on above: Expected: 03/01/2024 (Approximate), Expires: 03/01/2025 Start: 03-01-2024 End: 03-01-2025 CBC W Auto Differential panel - Blood CBC and differential Lab Routine induced hypertension, antepartum Expected: 03/01/2024 (Approximate), Expires: 03/01/2025 [facility] Comment on above: Expected: 03/01/2024 (Approximate), Expires: 03/01/2025 Start: 03-01-2024 End: 03-01-2025 Creatinine [Mass/volume] in Serum or Plasma Creatinine Lab Routine induced hypertension, antepartum Expected: 03/01/2024 (Approximate), Expires: 03/01/2025 [facility] Work Phone: Comment on above: Expected: 03/01/2024 (Approximate), Expires: 03/01/2025 Start: 03-01-2024 End: 03-01-2025 Lactate dehydrogenase [Enzymatic activity/volume] in Serum or Plasma by Lactate to pyruvate reaction Lactate dehydrogenase Lab Routine induced hypertension, antepartum Expected: 03/01/2024, Expires: 03/01/2025 [facility] Comment on above: Expected: 03/01/2024 , Expires: 03/01/2025 Start: 03-01-2024 End: 03-01-2025 Protein, urine, 24 hour Protein, urine, 24 hour Lab Routine induced hypertension, antepartum Expected: 03/01/2024 (Approximate), Expires: 03/01/2025 [facility] Comment on above: Expected: 03/01/2024 (Approximate), Expires: 03/01/2025 Start: 03-01-2024 End: 03-01-2025 Pt and ptt Pt and ptt Lab Routine induced hypertension, antepartum Expected: 03/01/2024, Expires: 03/01/2025 [facility] Comment on above: Expected: 03/01/2024 , Expires: 03/01/2025 Start: 03-01-2024 End: 03-01-2025 Urate [Mass/volume] in Serum or Plasma Uric acid Lab Routine induced hypertension, antepartum Expected: 03/01/2024 (Approximate), Expires: 03/01/2025 [facility] Comment on above: Expected: 03/01/2024 (Approximate), Expires: 03/01/2025 Start: 03-01-2024 End: 03-01-2025 Urea nitrogen [Mass/volume] in Serum or Plasma BUN Lab Routine induced hypertension, antepartum Expected: 03/01/2024, Expires: 03/01/2025 [facility] Comment on above: Expected: 03/01/2024 , Expires: 03/01/2025 Start: 03-01-2024 End: 03-01-2025 US biophysical profile w non stress test US biophysical profile w non stress test Imaging Routine Hypertension affecting in third trimester Lightheadedness Dizziness Expected: 03/01/2024 (Approximate), Expires: 03/01/2025 [facility] Comment on above: Expected: 03/01/2024 (Approximate), [...] of anatomy Expected: 01/20/2024 (Approximate), Expires: 12/19/2024 [facility] Work Phone: Comment on above: Expected: 01/20/2024 (Approximate), Expires: 12/19/2024 Start: 01-17-2024 End: 01-16-2025 CBC panel - Blood by Automated count CBC Lab Routine Diabetes mellitus screening Expected: 01/17/2024 (Approximate), Expires: 01/16/2025 [facility] [employer] Work Phone: Comment on above: Expected: 01/17/2024 (Approximate), Expires: 01/16/2025 Start: 01-17-2024 End: 01-16-2025 Measurement of glucose 1 hour after glucose challenge for glucose tolerance test Glucose tolerance, 1 hour Lab Routine Diabetes mellitus screening Expected: 01/17/2024 (Approximate), Expires: 01/16/2025 [facility] Comment on above: Expected: 01/17/2024 (Approximate), Expires: 01/16/2025 Start: 01-17-2024 End: 01-17-2024 Patient encounter procedure [facility] Comment on above: Arrived Start: 01-17-2024 End: 01-17-2024 Professional / ancillary services management 01/17/2024 9:30 AM EDT Ancillary Procedure [facility] [address] [place] [address] [facility] Start: 12-20-2023 End: 12-20-2023 Patient encounter procedure [facility] Comment on above: Arrived Start: 12-14-2023 End: 12-14-2023 Professional / ancillary services management 12/14/2023 9:00 AM EDT Ancillary Procedure [facility] [address] [place] [id number] [facility] Start: 11-22-2023 End: 05-21-2024 Alpha fetoprotein, maternal Alpha fetoprotein, maternal Lab Routine Second trimester Expected: 11/22/2023 (Approximate), Expires: 05/21/2024 [facility] Comment on above: Expected: 11/22/2023 (Approximate), Expires: 05/21/2024 Start: 11-22-2023 End: 11-21-2024 US for US OB ANATOMY SINGLE W US OB CERVICAL LENGTH Imaging Routine Screening, , for anatomic survey Expected: 11/22/2023 (Approximate), Expires: 11/21/2024 [facility] Comment on above: Expected: 11/22/2023 (Approximate), Expires: 11/21/2024 Start: 11-20-2023 Influenza vaccination Influenza Vacc ine (#1) [facility] CHLAMYDIA TRACHOMATI S (GENITO/STI) CHLAMYDIA TRACHOMATIS (GENITO/STI) Lab Routine STD exposure Ordered: 11/22/2023 [facility] Comment on above: Ordered: 11/22/2023 Cytology Cervical or vaginal smear or scraping study Pap Smear Pathology and Cytology Routine Well woman exam with routine gynecological exam Ordered: 11/22/2023 [facility] Comment on above: Ordered: 11/22/2023 Neisseria gonorrhoea e DNA [Presence] in Unspecified specimen by SANTANA with probe detection Neisseria gonorrhea DNA probe, direct Lab Routine STD exposure Ordered: 11/22/2023 [facility] Comment on above: Ordered: 11/22/2023 SURESWAB(R) ADVANCED VAGINITIS PLUS, TMA SURESWAB(R) ADVANCED VAGINITIS PLUS, TMA Pathology and Cytology Routine Vaginal discharge Ordered: 11/22/2023 [facility] Work Phone: Comment on above: Ordered: 11/22/2023 Immunizations Immunization Date Immunization Notes Care Provider Fa [facility] 12-09-2019 diphtheria, tetanus toxoids and pertussis vaccine Lorene Hemmer PA Work Phone: [facility] 12-09-2019 measles, mumps and rubella virus vaccine Lorene Hemmer PA Work Phone: [facility] 05-30-2000 diphtheria, tetanus toxoids and acellular pertussis vaccine, unspecified formulation Lorene Hemmer PA Work Phone: [facility] Work Phone: 05-30-2000 measles, mumps and rubella virus vaccine Lorene Hemmer PA Work Phone: [facility] 05-30-2000 poliovirus vaccine, inactivated Lorene Hemmer PA Work Phone: [facility] 03-30-2000 influenza, seasonal, injectable Lorene Hemmer PA Work Phone: [facility] 03-30-2000 influenza virus vaccine, unspecified formulation Lorene Hemmer PA Work Phone: [facility] 09-12-1998 haemophilus influenz ae type b vaccine, conjugate unspecified formulation Lorene Hemmer PA Work Phone: [facility] 11-28-1996 diphtheria, tetanus toxoids and acellular pertussis vaccine, unspecified formulation Lorene Hemmer PA Work Phone: [facility] 11-28-1996 haemophilus influenz ae type b vaccine, conjugate unspecified formulation Lorene Hemmer PA Work Phone: [facility] 11-28-1996 measles, mumps and rubella virus vaccine Lorene Hemmer PA Work Phone: [facility] 10-27-1996 trivalent poliovirus vaccine, live, oral Lorene Hemmer PA Work Phone: [facility] 01-31-1996 DTP-Haemophilus influenzae type b conjugate vaccine Lorene Hemmer PA Work Phone: [facility] 01-31-1996 hepatitis B vaccine, pediatric or pediatric/adolescent dosage Lorene Hemmer PA Work Phone: [facility] 01-31-1996 trivalent poliovirus vaccine, live, oral Lorene Hemmer PA Work Phone: [facility] 1995 DTP-Haemophilus influenzae type b conjugate vaccine Lorene Hemmer PA Work Phone: [facility] 1995 trivalent poliovirus vaccine, live, oral Lorene Hemmer PA Work Phone: [facility] 1995 DTP-Haemophilus influenzae type b conjugate vaccine Lorene Hemmer PA Work Phone: [facility] 1995 hepatitis B vaccine, pediatric or pediatric/adolescent dosage Lorene Hemmer PA Work Phone: [facility] 1995 haemophilus influenz ae type b vaccine, conjugate unspecified formulation Lorene Hemmer PA Work Phone: [facility] 1995 hepatitis B vaccine, pediatric or pediatric/adolescent dosage Lorene Hemmer PA Work Phone: [facility] Payers Date Payer Category Payer [facility] Care O (unspecified) [id number] 2023 Private Health Insurance [id number] 2022 Private Health Insurance [id number] 2022 Self-pay 2022 Unknown [id number] 1995 Unknown [id number] 2.16.84 [id number] 1995 Unknown [id number] 2.16.84 [id number] 1995 Unknown [id number] 2.16.84 0.1.998357.3.579.2.593 1995 Unknown [id number] 2.16.84 0.1.519321.3.579.2.593 1995 Unknown [id number] 2.16.840.1.267480.3.579.2.1258 1995 Unknown [id number] 2.16.840.1.342810.3.579.2.1258 1995 Unknown [id number] 2.16840.1.398770.3.579.2.1258 1995 Unknown [id number] 2.16840.1.860597.3.579.2.1258 1995 Unknown [id number] 2.16840.1.860757.3.579.2.1258 1995 Unknown [id number] 2.16840.1.566506.3.579.2.1258 1995 Unknown [id number] 2.16840.1.302804.3.579.2.1258 1995 Unknown [id number] 2.840.1.177048.3.579.2.1258 1995 Unknown [id number] 2.840.1.708286.3.579.2.1258 1995 Unknown [id number] 2.16840.1.509681.3.579.2.1258 1995 Unknown [id number] 2.840.1.263395.3.579.2.1258 1995 Unknown [id number] 2.840.1.965300.3.579.2.1258 1995 Unknown [id number] 2.16840.1.554238.3.579.2.1258 1995 Unknown [id number] 2.840.1.161013.3.579.2.1258 1995 Unknown [id number] 2.840 .1.977964.3.579.2.9 1959 Unknown [id number] 1959 Unknown [id number] 1959 Unknown [id number] Unknown [id number] Social History Date Type Detail Facility Tobacco smoking stat us NHIS Unknown if ever smoked [facility] Work Phone: Start: 1995 Sex Assigned At Female [facility] Start: 09-08-2023 End: 11-23-2023 Sex Assigned At [facility] Start: 11-24-2022 Tobacco smoking status NHIS Never smoked tobacco [facility] Start: 11-24-2022 Tobacco use and exposure Smokeless tobacco non-user [facility] Start: 11-23-2023 End: 03-19-2024 Alcoholic beverage intake Ex-drinker (finding) [facility] Start: 09-08-2023 End: 11-23-2023 Alcoholic beverage intake [facility] How often do you nee d to have someone help you when you read instructions, pamphlets, or other written material from your doctor or pharmacy [SILS] Never [facility] Do you belong to any clubs or organizations such as [employer]beterian groups, unions, fraternal or athletic groups, or [...] 10-18-2022 Sexual orientation Heterosexual (finding) [facility] Start: 10-24-2023 End: 11-22-2023 Alcoholic beverage intake Current drinker of alcohol (finding) [facility] Clinical Notes 05-11-2022 to 03-19-2024 ABEL Carroll - 03/19/2024 10:10 AM ABEL Stinson - 03/05/2024 9:40 AM ABEL Stinson - 03/01/2024 11:00 AM Graeme Duran LPN - 02/20/2024 9:50 AM ABEL Stinson - 01/17/2024 10:10 AM EDT Note Date & Type Note Facility 03-19-2024 History of Presen t illness Narrative Reason for Appointment: Patient ID: Nazia Ruiz is a 28 y.o. female who presents for Routine Visit Patient presents today for Return OB appointment. MEDICATIONS Current Outpatient Medications Medication Instructions cetirizine [...] reviewed. Vitals: Estimated body mass index is 37.93 kg/m as calculated from the following: Height as of 11/23/23: 5' 2 . Weight as of 03/05/24: 207 lb 6.4 oz. BP: Patient's last menstrual period was 07/27/2023. ASSESSMENT & PLAN ICD-10-CM 1. Third trimester Z34.93 2. 33 weeks gestation of Z3A.33 Return OB: Patient presents today for a routine obstetrics appointment. Patient is currently 33w5d . Patient states she is doing well [...] week for routine OB appointment. Documented by Kaelyn Garcia MA on behalf of: ABEL Carroll documented in this encounter [facility] 03-05-2024 History of Presen t illness Narrative Reason for Appointment: Patient ID: Nazia Ruiz is a 28 y.o. female who presents for Routine Visit Patient presents today for Return OB appointment. MEDICATIONS Current Outpatient Medications Medication Instructions cetirizine [...] auditory processing disorder Chronic ear infection Depression ([facility]) ETD (eustachian tube dysfunction) Miscarriage TMJ (dislocation of temporomandibular joint) HISTORY PAST MEDICAL HISTORY SOCIAL HISTORY Past Medical History: Diagnosis Date Allergies Central auditory processing disorder Chronic ear infection Depression ([facility]) ETD (eustachian tube dysfunction) Ganglion cyst of [...] reviewed. Vitals: Estimated body mass index is 37.93 kg/m as calculated from the following: Height as of 9/4/24: 5' 2 . Weight as of this encounter: 207 lb 6.4 oz. BP: 110/74 Patient's last menstrual period was 07/27/2023. ASSESSMENT & PLAN ICD-10-CM 1. 31 weeks gestation of Z3A.31 POCT urinalysis dipstick manually resulted 2. Third trimester Z34.93 POCT urinalysis dipstick manually resulted Return OB: Patient presents today for a routine obstetrics appointment. Patient is currently 31w5d . Patient states she is doing well but has complaints of being tired due to current . Patient has verbalizes frequent movement. labor precautions was discussed/given and patient was instructed to perform kick counts three times a day. Patient to start nst and BPP this next week, feeling much better with labetolol 100mg bid. Jtn and dizziness improved Orders Placed This Encounter Procedures POCT urinalysis dipstick manually resulted Follow Up: Patient is to return to office in 2 week for routine OB appointment. Documented by ABEL Carroll on behalf of: ABEL Carroll documented in this encounter [facility] 03-01-2024 History of Presen t illness Narrative [...] of: ABEL Carroll documented in this encounter [facility] 02-20-2024 History of Presen t illness [...] nursing note reviewed. Exam conducted with a tank furnace operator present. Vitals: Estimated body mass index is [...] Anai Burger DO documented in this encounter [facility] 01-17-2024 History of Presen t illness [...] nursing note reviewed. Exam conducted with a tank furnace operator present. Vitals: Estimated body mass index is [...] of: ABEL Carroll documented in this encounter [facility] 12-20-2023 History of Presen t illness [...] of: ABEL Carroll documented in this encounter [facility] 11-25-2023 Telephone encount er Note Understood. [facility] 11-25-2023 Miscellaneous Notes Formattin g of this note might be different from the original. Understood. Nazia called stating her ob just wants her on Effexor instead of buspirone so that's what she'll be on documented in this encounter [facility] 11-25-2023 Telephone encount er Note Nazia called stating her ob just wants her on Effexor instead of buspirone so that's what she'll be on [facility] 11-23-2023 History of Presen t illness Narrative Images from the original note were not included. Subjective Patient ID: Nazia Ruiz is a 28 y.o. female who presents for depression. Nazia is present today for follow up depression. She is currently 17 weeks . She stopped the Bupropion and Buspirone around the beginning of August (when she found out she was ). She does not want to be on any mental health meds d/t she did have a miscarriage before and does not want to risk anything. What are her options with maybe a vitamin or exercises. She also is going to need her FMLA renewed and does not know what you would like for her to do to go about still having her FMLA for depression even though she is not on any meds for it currently. States she has moments of anger, goes from 0 to 60 very quickly. Had to lock herself in her room and take deep breaths. After that she got really low, though about suicide, better off that she wouldn't be here. Cries a lot. Current Outpatient Medications on File Prior to Visit Medication Sig Dispense Refill cetirizine (ZyrTEC) 10 MG tablet Take 10 mg by mouth Daily fluticasone (Flonase) 50 MCG/ACT nasal spray Administer 1 spray into each nostril Daily Shake gently. Before first use, prime pump. After use, clean tip and replace cap. PRN MV & Min w/FA-DHA ([facility] PO) Take 1 tablet by mouth 1 (one) time each day [DISCONTINUED] buPROPion SR (Wellbutrin SR) 100 MG 12 hr tablet Take 1 tablet (100 mg) by mouth in the morning and 1 tablet (100 mg) before bedtime. (Patient not taking: Reported on 09/08/2023) 200 tablet 3 [DISCONTINUED] busPIRone (Buspar) 15 MG tablet Take 1 tablet (15 mg) by mouth in the morning and 1 tablet (15 mg) before bedtime. (Patient not taking: Reported on 09/08/2023) 60 tablet 5 [DISCONTINUED] loratadine-pseudoephedrine ER (Claritin-D 24-hour) 10-240 MG 24 hr tablet Take 1 tablet by mouth in the morning. Do not crush, chew, or split. . [DISCONTINUED] magnesium 200 MG tablet Take 1 tablet (200 mg) by mouth Daily 90 tablet 0 [DISCONTINUED] Progesterone 200 MG suppository Insert 200 mg into the vagina at bedtime Insert suppository vaginally every night at bedtime until 12 weeks gestation 30 suppository 2 No current facility-administered medications on file prior to visit. I have reviewed and reconciled the history and medication list with the patient today. Allergies Allergen Reactions Abilify [Aripiprazole] Vision disturbance Cephalexin Unknown Flavoring Agent Unknown Mosquito (Diagnostic) Unknown Propofol Unknown Vraylar [Cariprazine] QUACH, blurry vision, fatigue Social History Tobacco Use Smoking status: Never Smokeless tobacco: Never Vaping Use Vaping status: Never Used Substance Use Topics Alcohol use: Not Currently Alcohol/week: 2.0 standard drinks of alcohol Types: 2 Standard drinks or equivalent per week Comment: Caffeine intake: 1-2 cups per day Drug use: Never Family History Problem Relation Name Age of Onset Hypertension Mother Cervical cancer Mother Ovarian cancer Mother Hypertension Father Heart disease Father Schizophrenia Sister No Known Problems Brother Past Medical History: Diagnosis Date Allergies Central auditory processing disorder Chronic ear infection Depression (CMS/HCC) ETD (eustachian tube dysfunction) Ganglion cyst of dorsum of left wrist Gastroesophageal reflux disease without esophagitis Miscarriage 10/2022 Otosclerosis TMJ (dislocation of temporomandibular joint) Past Surgical History: Procedure Laterality Date MYRINGOTOMY W/ TUBES 7 tubes placed in ears, [place] TONSILLECTOMY Visit Vitals BP 124/86 Pulse 81 Resp 16 Ht 5' 2 Wt 188 lb LMP 07/27/2023 SpO2 98% BMI 34.39 kg/m OB Status Smoking Status Never BSA 1.93 m Review of Systems Constitutional: Negative for chills, fatigue and fever. Respiratory: Negative for cough, shortness of breath and wheezing. Cardiovascular: Negative for chest pain, palpitations and leg swelling. Gastrointestinal: Negative for abdominal pain, constipation, diarrhea, nausea and vomiting. Skin: Negative for rash. Psychiatric/Behavioral: Positive for agitation and dysphoric mood. The patient is nervous/anxious. Objective Physical Exam Constitutional: General: She is not in acute distress. Appearance: Normal appearance. She is well-developed. HENT: Head: Normocephalic and atraumatic. Eyes: General: No scleral icterus. Conjunctiva/sclera: Conjunctivae normal. Cardiovascular: Rate and Rhythm: Normal rate and regular rhythm. Heart sounds: Normal heart sounds. No murmur heard. Pulmonary: Effort: Pulmonary effort is normal. No respiratory distress. Breath sounds: Normal breath sounds. No wheezing, rhonchi or rales. Skin: General: Skin is warm and dry. Neurological: General: No focal deficit present. Mental Status: She is alert and oriented to person, place, and time. Psychiatric: Mood and Affect: Mood normal. Speech: Speech normal. Behavior: Behavior normal. Thought Content: Thought content includes suicidal ideation. Thought content does not include homicidal or suicidal plan. Cognition and Memory: Cognition normal. Assessment/Plan Diagnoses and all orders for this visit: Agitation Active listening provided. Recommended that she should withdraw herself from the situation and take deep breaths, analyze what the root cause of her anger is and address that issue. Generalized anxiety disorder (CMS/HCC) - busPIRone (Buspar) 15 MG tablet; Take 1 tablet (15 mg) by mouth Daily Discussed potential risks and benefits of taking medication, specifically Buspar, during . Advised that at this time, the benefits of treatment likely outweigh the risks. Moderately severe depression (CMS/HCC) Feeling low to the level of having suicidal thoughts, no active plan. Advised pt that while concerns about taking medication during are valid, it also puts her son at risk when she is having suicidal thoughts. Pt encouraged to engage in activities that can hep her feel positive such as walking daily an following her hobby (crocheting). She admits to having a support system. Did discuss with patient that if her suicidal ideations worsen, she is to go directly to, or have someone take her directly to an ER. She voiced understanding. 17 weeks gestation of Continue follow up Dr. Burger. Advised pt that provider will reach out to Dr. Burger to ensure he is OK with pt taking Buspar. FMLA one day a week. Follow up in about 4 weeks (around 12/21/2023) for Medication Follow Up. documented in this encounter [facility] 11-22-2023 History of Presen t illness Narrative Reason for Appointment: Patient ID: Nazia Ruiz is a 28 y.o. female who presents for Well Women Visit, Routine Visit, and STI Screening Patient presents today for Annual Exam., STD Check., and Return OB appointment. MEDICATIONS Current Outpatient Medications Medication Instructions loratadine-pseudoephedrine ER (Claritin-D 24-hour) 10-240 MG 24 hr tablet 1 tablet, Oral, Daily, Do not crush, chew, or split. magnesium 200 mg, Oral, Daily Progesterone 200 mg, Vaginal, Nightly, Insert suppository vaginally every night at bedtime until 12 weeks gestation ALLERGIES Allergies Allergen Reactions Abilify [Aripiprazole] Vision [...] Use Smoking status: Never Smokeless tobacco: Never Substance Use Topics Alcohol use: Yes Alcohol/week: 2.0 standard drinks of alcohol Types: [...] Constitutional: Appearance: Normal appearance. She is well-developed. Genitourinary: Vulva normal. Breasts: Breasts are soft. Right: Normal. Left: Normal. Cardiovascular: Rate and Rhythm: Normal rate and [...] nursing note reviewed. Exam conducted with a tank furnace operator present. Vitals: Estimated body mass index is 34.41 kg/m as calculated from the following: Height as of 01/05/23: 5' 2 . Weight as of this encounter: 188 lb 1.9 oz. BP: 122/74 Patient's last menstrual period was 07/27/2023. ASSESSMENT & PLAN ICD-10-CM 1. Screening, , for anatomic survey Z36.89 US OB ANATOMY SINGLE W US OB CERVICAL LENGTH 2. Well woman exam with routine gynecological exam Z01.419 Pap Smear 3. Second trimester Z34.92 POCT urinalysis dipstick manually resulted Alpha fetoprotein, maternal Alpha fetoprotein, maternal 4. Vaginal discharge N89.8 SURESWAB(R) ADVANCED VAGINITIS PLUS, TMA 5. STD exposure Z20.2 CHLAMYDIA TRACHOMATIS (GENITO/STI) Neisseria gonorrhea DNA probe, direct Return OB/Annual Exam: Patient presents today for a annual exam/routine obstetrics appointment. Patient is currently 16w6d . Patient states she is doing well but has complaints of nausea in the morning. Pap and cultures was obtained without difficulty and patient was given orders for anatomy scan and msAFP to be obtained. Pt has depression and anxiety, discussed medications to aid with both. Rx for effexor faxed to pharmacy- pt denies suicidal and homicidal ideations. Orders Placed This Encounter Procedures US OB ANATOMY SINGLE W US OB CERVICAL LENGTH CHLAMYDIA TRACHOMATIS (GENITO/STI) Neisseria gonorrhea DNA probe, direct Alpha fetoprotein, maternal POCT urinalysis dipstick manually resulted Follow Up: Patient is to schedule annual exam for next year and return to office in 4 weeks for OB appointment. Documented by Lorene Duran LPN on behalf of: Anai Burger DO documented in this encounter [facility] 05-11-2022 Evaluation note Encounter Date Diagnosis [...] Instructed patient to wear brace for activities. [employer] Other Evaluation noteNo assessment information available [facility] Work Phone: Evaluation note* Diagnosis Encounter for follow-up ultrasound of anatomy Second trimester state, incidental 20 weeks gestation of [facility] Diagnosis Diabetes mellitus screening Screening for diabetes mellitus Second trimester state, incidental 24 weeks gestation of [facility] Diagnosis Third trimester state, incidental Excessive growth affecting management of , antepartum, single or unspecified fetus [facility] Diagnosis 31 weeks gestation of Third trimester state, incidental induced hypertension, antepartum Transient hypertension of , antepartum Hypertension affecting in third trimester Lightheadedness Dizziness and giddiness Dizziness Dizziness and giddiness [facility] Diagnosis 31 weeks gestation of Third trimester state, incidental [facility] Diagnosis Agitation- Primary Other and unspecified special symptom or syndrome, not elsewhere classified Generalized anxiety disorder (CMS/HCC) Generalized anxiety disorder Moderately severe depression (CMS/HCC) 17 weeks gestation of [facility] Diagnosis Screening, , for anatomic survey Encounter for anatomic survey Well woman exam with routine gynecological exam Routine gynecological examination Second trimester state, incidental Vaginal discharge Leukorrhea, not specified as infective STD exposure Mood disorder (CMS/HCC) Unspecified episodic mood disorder [facility] Diagnosis Third trimester state, incidental 33 weeks gestation of [facility] Narrative - Reported* Type Description Date Medical History learning disability Surgical History tymponostomy x7 [employer] Other Summary Purpose Family History No Family History Records FoundNo Family History Records FoundNo Family History Records Found Advance Directives No Advanced Directives Records FoundNo Advanced Directives Records FoundNo Advanced Directives Records Found Additional Source Comments INFORMATION SOURCE (unrecogn ized section and content) DATE CREATED AUTHOR 09/12/2021 [facility] DATE CREATED AUTHOR AUTHOR'S ORGANIZ ATION 05/21/2022 [facility] DATE CREATED AUTHOR AUTHOR'S ORGANIZ ATION 03/20/2024 [facility] [employer] Care Teams (unrecognized sec tion and content) Team Status: Inactive Member Role Status Dates Dee Buchanan MD Attending Provider Active Ceo Relationship Specialty Start Date End Date Verito Lamb MD [address] [facility] [address] [place] [address] PCP - General Family Medicine 10/18/22 Ceo Relationship Specialty Start Date End Date Verito Lamb MD [address] [facility] [address] [place] [address] PCP - General Family Medicine 10/18/22 Ceo Relationship Specialty Start Date End Date Verito Lamb MD [address] [facility] [address] [place] [address] PCP - General Family Medicine 10/18/22 Ceo Relationship Specialty Start Date End Date Verito Lamb MD [address] [facility] [address] [place] [address] PCP - General Family Medicine 10/18/22 Ceo Relationship Specialty Start Date End Date Verito Lamb MD [address] [facility] [address] [place] [address] PCP - General Family Medicine 10/18/22 Ceo Relationship Specialty Start Date End Date Verito Lamb MD [address] [facility] [address] [place] [address] PCP - General Family Medicine 10/18/22 Ceo Relationship Specialty Start Date End Date Verito Lamb MD [address] [facility] [address] [place] [address] PCP - General Family Medicine 10/18/22 Ceo Relationship Specialty Start Date End Date Verito Lamb MD [address] [facility] [address] [place] [address] PCP - [facility] Medicine 10/18/22 Ceo Relationship Specialty Start Date End Date Verito Lamb MD [address] [facility] [address] [place] [address] PCP - [facility] Medicine 10/18/22 Ceo Relationship Specialty Start Date End Date Verito Lamb MD [address] [facility] [address] [place] [address] PCP - [facility] Medicine 10/18/22 Ceo Relationship Specialty Start Date End Date Verito Lamb MD [address] [facility] [address] [place] [address] PCP - [facility] 10/18/22 Ceo Relationship Specialty Start Date End Date Verito Lamb MD [address] [facility] [address] [place] [address] PCP - [facility] 10/18/22 Ceo Relationship Specialty Start Date End Date Verito Lamb MD [address] [facility] [address] [place] [address] PCP - General [facility] Medicine 10/18/22 Goals (unrecognized section and content) Goals may be documented in a n alternate sectionNo Information REASON FOR VISIT (unrecogniz ed section and content) Reason Comments Routine Visit Reason Comments Well Women Visit Routine Visit STI Screening FOR RECORDS PERTAINING TO PATIENTS WHO ARE [...] BE BASED ON THE PRIMARY CLINICAL RECORDS. [facility] provides no warranty or guarantee of the accuracy or completeness of information in this document.
[2024-03-21 11:16] VITALS: BP 116/67; PULSE 73
== END 2024-03-21 11:35 | disposition home or self-care (01) ==
LOC: FBCO 05:21 → FBC 11:02
PROVIDERS: PCP Family Medicine; Visit Provider Obstetrics & Gynecology
DX: O16.3 Unspecified maternal hypertension, third trimester (principal)
CPT/HCPCS: 59025

== ENCOUNTER 2024-03-24 05:51 | Outpatient (OUT) | payer OTHER, SELFPAY ==
--- NOTE | 2024-03-24 14:33 | US_ITS ---
[address] [address] Patient Name: ELIZABETH MOLINA MRN: [id number] date: 1995 Sex: F Assigned Patient Location: [facility] Current Patient Location: Accession/Order Number: [id number] Exam Date: 03/24/2024 14:40 Report Date: 03/25/2024 01:56 At the request of: GEE MARTINEZ Procedure: US OB BPP w non-stress EXAMINATION: US OB BPP w non-stress HISTORY:HYPERTENSION AFFECTING O16.3 COMPARISON: Ultrasound OB biophysical 03/17/2024 TECHNIQUE: Ultrasound biophysical profile was performed in the radiology department. BREATHING MOVEMENTS: 2 GROSS BODY MOVEMENTS: 2 TONE: 2 QUALITATIVE AMNIOTIC FLUID VOLUME: 2 PRESENTATION: CEPHALIC HEART RATE: 135.68 bpm AMNIOTIC FLUID VOLUME: 10.96 cm GESTATIONAL AGE: 34 weeks 3 days US/US OB BPP w non-stress IMPRESSION: Total biophysical profile score: 8 Electronically authenticated by: RICHARD SCHULZ Date: 03/25/2024 01:56
[2024-03-24 15:17] VITALS: TEMP 36.3
[2024-03-24 15:18] VITALS: BP 109/77; PULSE 67
== END 2024-03-24 16:02 | disposition home or self-care (01) ==
LOC: US 05:51 → FBC 14:30
PROVIDERS: PCP Family Medicine; Visit Provider Physician Assistant
DX: O16.3 Unspecified maternal hypertension, third trimester (principal); Z3A.34 34 weeks gestation of pregnancy
CPT/HCPCS: 76818

== ENCOUNTER 2024-03-28 01:04 | Outpatient (OUT) | payer OTHER, SELFPAY ==
[2024-03-28 11:10] VITALS: BP 121/78; PULSE 72
== END 2024-03-28 11:47 | disposition home or self-care (01) ==
LOC: FBCO 01:05 → FBC 11:03
PROVIDERS: PCP Family Medicine; Visit Provider Obstetrics & Gynecology
DX: O16.3 Unspecified maternal hypertension, third trimester (principal)
CPT/HCPCS: 59025

== ENCOUNTER 2024-03-31 00:33 | Outpatient (OUT) | payer OTHER, SELFPAY ==
--- OUTSIDE RECORDS SUMMARY | 2024-03-31 00:36 | XMS_ITS | CCD ---
Author Organization [facility] Care Team Providers Care Salesforce Consultant Name Role Phone JENNYFER, DR OSPINA Admitting [...] Unavailable Verito Lamb MD Primary Care Provider [phone] LORENE PLASENCIA Attending Unavailable LORENE PLASENCIA Attending Unavailable LORENE PLASENCIA Attending Unavailable SANGEETHA GRAY Attending Unavailable AMANDA MARTINEZ Attending Unavailable JENNYFERANAI OLIVA Attending Unavailable JENNYFERANAI OLIVA Attending Unavailable HEMLORENE MANDEL Attending Unavailable AMANDA MARTINEZ Attending Unavailable AMANDA MARTINEZ Attending Unavailable JENNYFERANAI OLIVA Attending Unavailable JUAN AMANDA Attending Unavailable JUAN AMANDA Attending Unavailable JUAN AMANDA Attending Unavailable Allergies Allergy Classification Reported Allergen(s) Allergy Type Date of Onset Reaction(s) Facility (1 source) Cephalexin Drug Allergy [facility] Repository (20 sources) ARIPiprazole Drug Allergy 3 [facility] Work Phone: (20 sources) cariprazine Drug Allergy 3 [facility] (20 sources) Cephalexin Drug Allergy 3 Unknown [facility] (20 sources) Propofol Drug Allergy 3 Unknown [facility] (20 sources) Flavoring Agent Allergy to substance 3 Unknown [facility] (20 sources) Mosquito (Diagnostic) Drug Allergy 3 Unknown [facility] Medications Current Medications Medication Drug Class(es) [...] 100 mg oral tablet (9 sources) beta-Adrenergic Adnia Start: End: take 1 tablet by mouth [...] UA Positive Negative - 4(70) +++ mg/dL [facility] Comment on above: small Blood, UA Positive Negative - 50 Neno/mcL [facility] Comment on above: trace Clarity, UA Cloudy [facility] Color, UA Marilyn [facility] Glucose, UA Negative Negative - 2000(110) ++++ mg/dL [facility] Interpretation and review of laboratory results Abnormal [facility] Ketones, UA Negative Negative - 160(16) ++++ mg/dL [facility] Leukocytes, UA Trace Negative - 500+++ Virgie/mcL [facility] Nitrite, UA Negative Negative - Positive [facility] pH, UA 6 5 - 9 [facility] Protein, UA Positive Negative - 1999(20) ++++ mg/dL [facility] Comment on above: 30 Spec Grav, UA 1.03 1 - 1.03 [facility] Urobilinogen, UA 0.2 0.2 - 12 mg/dL [facility] Urinalysis macro (dipstick) panel (U)on 03-05-2024 Bilirubin, UA Negative Negative - 4(70) +++ mg/dL [facility] Blood, UA Negative Negative - 50 Neno/mcL [facility] Clarity, UA Clear [facility] re Color, UA Yellow [facility] e Glucose, UA Negative Negative - 1999(110) ++++ mg/dL [facility] Interpretation and review of laboratory results Abnormal [facility] Ketones, UA Negative Negative - 160(16) ++++ mg/dL [facility] Leukocytes, UA Positive Negative - 500+++ Virgie/mcL [facility] Comment on above: small Nitrite, UA Negative Negative - Positive [facility] pH, UA 6 5 - 9 [facility] Protein, UA Negative Negative - 1999(20) ++++ mg/dL [facility] Spec Grav, UA 1.015 1 - 1.03 [facility] Urobilinogen, UA 0.2 0.2 - 12 mg/dL [facility] CCF APTTon 03-02-2024 aPTT Coag (Bld) [Time] 23.9 s [facility] No Panel Informationon 03-02 [facility] e SRMCOH PROTHROMBIN TIME INR W/O COUMon 03-02-2024 PT Coag (PPP) [Time] 9.9 s [facility] TB INR 0.93 [facility] Comment on above: DESIRED INR: 2.0-3.0 CONDITIONS NOT LISTED BELOW 2.5-3.5 FOR PROSTHETIC HEART VALVE REPLACEMENT 2.5-3.5 RECURRENT THROMBOSIS Urinalysis macro (dipstick) panel (U)on 03-01-2024 Bilirubin, UA Negative Negative - 4(70) +++ mg/dL [facility] Blood, UA Negative Negative - 50 Neno/mcL [facility] Clarity, UA Clear [facility] Color, UA Yellow [facility] Glucose, UA Negative Negative - 1999(110) ++++ mg/dL [facility] Interpretation and review of laboratory results Abnormal [facility] re Ketones, UA Negative Negative - 160(16) ++++ mg/dL [facility] Leukocytes, UA Positive Negative - 500+++ Virgie/mcL [facility] Comment on above: small Nitrite, UA Negative Negative - Positive [facility] pH, UA 7 5 - 9 [facility] Protein, UA Trace Negative - 1999(20) ++++ mg/dL [facility] Spec Grav, UA 1.02 1 - 1.03 [facility] Urobilinogen, UA 0.2 0.2 - 12 mg/dL [facility] GLUCOSE 1 HOURon 01-25-2024 Glucose [Mass/Vol] 131 mg/dL High NINF - 13 0 mg/dL [facility] Interpretation and review of laboratory results Abnormal [facility] re [facility] Urinalysis macro (dipstick) panel (U)on 01-17-2024 Bilirubin, UA Negative Negative - 4(70) +++ mg/dL [facility] Blood, UA Negative Negative - 50 Neno/mcL [facility] Clarity, UA Clear [facility] re Color, UA Yellow [facility] Glucose, UA Negative Negative - 1999(110) ++++ mg/dL [facility] Interpretation and review of laboratory results Abnormal [facility] re Ketones, UA Negative Negative - 160(16) ++++ mg/dL [facility] Leukocytes, UA Trace Negative - 500+++ Virgie/mcL [facility] Nitrite, UA Negative Negative - Positive [facility] pH, UA 6 5 - 9 [facility] Protein, UA Negative Negative - 1999(20) ++++ mg/dL [facility] Spec Grav, UA 1.02 1 - 1.03 [facility] Urobilinogen, UA 1.0 0.2 - 12 mg/dL [facility] Urinalysis macro (dipstick) panel (U)on 12-20-2023 Bilirubin, UA Negative Negative - 4(70) +++ mg/dL [facility] Blood, UA Negative Negative - 50 Neno/mcL [facility] Clarity, UA Clear [facility] Color, UA Yellow [facility] Glucose, UA Negative Negative - 1999(110) ++++ mg/dL [facility] Interpretation and review of laboratory results Abnormal [facility] Ketones, UA Negative Negative - 160(16) ++++ mg/dL [facility] Leukocytes, UA Trace Negative - 500+++ Virgie/mcL [facility] Nitrite, UA Negative Negative - Positive [facility] pH, UA 6.5 5 - 9 [facility] e Protein, UA Negative Negative - 1999(20) ++++ mg/dL [facility] Spec Grav, UA 1.025 1 - 1.03 [facility] Urobilinogen, UA 0.2 0.2 - 12 mg/dL [facility] AFP, SERUM, OPEN SPINA BIFID Aon 12-11-2023 AFP MOM 0.79 . [facility] AFP VALUE 34.7 ng/mL . [facility] [place] [facility] COMMENT: Comment . [facility] e Comment on above: Treva Gong , Ph.D., [facility] Director References: Available Upon Request. Multiples Of Median Cutoffs For AFP Elevations Banuelos 2.5 Black 2.8 IDD 2.0 Twins 4.5 Abbreviation Definitions IDD - Insulin Dep Diabetes OSBR - Open Spina Bifida Risk For further inquiries contact [employer] at [phone]. This test was developed and its performance characteristics determined by [employer]. It has not been cleared or approved by the Food and Drug Administration. Performed at: [facility], [place], [place] [id number] Dam Operator: Maira Jones [facility], Phone: [phone] GEST. AGE ON COLLECTION DATE 19.3 . weeks [facility] GESTAT. AGE BASED ON LMP . [facility] Comment on above: Recalculations are n ot recommended when gestational dating by LMP and ultrasound are within 10 days. INSULIN DEP DIABETES No . [facility] INTERPRETATION Comment . [facility]alt hcare Comment on above: Interpretation: Scre [...] Customer Services to discuss available options. The [employer] recommends amniocentesis be offered to women age 35 and older. [age] [facility] [employer] MULTIPLE GESTATION No . [facility] [place] [phone] . [facility]alt [facility]care RACE . [facility] [employer] RESULTS Report . [facility] [employer] e TEST RESULTS: Negative . [facility] [employer] [facility] WEIGHT 188 . lbs [facility] Exchange e N N LMP [id number] 16 N 1 Y 188 N N N N N White/ [facility] [employer] e IGP,APTIMA HPV,AGE GDLNon AGE GDLN ACOG TESTING Note . [facility] Comment on above: TESTS RESULT FLAG UN ITS REF RANGE LAB Clinician Provided Cytology Information Source.............Cervix No. of containers..01 ThinPrep Vial Age Algo ACOG Madonna... FLAG LEGEND: L-Low Normal,H-High Normal,LL-Alert Low,HH-Alert High <-Panic Low,>-Panic High,A-Abnormal,AA-Critical Abnormal Performed at: 01 =G [facility] [address] [place] [address] Tierra Morales MD, IGP, RFX APTIMA HPV ASCU Note . [facility] Comment on above: TESTS RESULT FLAG UN ITS REF RANGE LAB DIAGNOSIS: 02 NEGATIVE FOR INTRAEPITHELIAL LESION OR MALIGNANCY. Specimen adequacy: 02 Satisfactory for evaluation. No endocervical component is identified. Performed by: Anurag Blanc, Cutter Operator Helper ([facility]) . 02 Note: Note 02 The [...] High,A-Abnormal,AA-Critical Abnormal Performed at: 02 WB [facility] [address] [place] [address] Tierra Morales MD, Performed at: =G - [facility] [address] [facility], [place] [id number] Dam Operator: Tierra Morales MD, Phone: [phone] Performed at: - [facility] [address] [facility], [place] [id number] Dam Operator: Tierra Morales MD, Phone: [phone] SPATULA-ALONE CERVIX [facility] Urinalysis macro (dipstick) panel (U)on 11-22-2023 Bilirubin, UA Negative Negative - 4(70) +++ mg/dL [facility] Blood, UA Negative Negative - 50 Neno/mcL [facility] Clarity, UA Clear [facility] re Color, UA Yellow [facility] Glucose, UA Negative Negative - 1999(110) ++++ mg/dL [facility] Interpretation and review of laboratory results Normal [facility] Ketones, UA Negative Negative - 160(16) ++++ mg/dL [facility] Leukocytes, UA Negative Negative - 500+++ Virgie/mcL [facility] Nitrite, UA Negative Negative - Positive [facility] pH, UA 6.5 5 - 9 [facility] Protein, UA Negative Negative - 1999(20) ++++ mg/dL [facility] Spec Grav, UA 1.025 1 - 1.03 [facility] care Urobilinogen, UA 1.0 0.2 - 12 mg/dL [facility] XR wrist LT min 3V*on 2022 XR wrist LT min 3V* [facility] [address] XRay Report Signed Patient: Nazia Harper MR#: [id number] 67 : 1995 Acct:[id number] Age/Sex: 26 / F ADM Date: 05/11/22 Loc: [facility] Room: Type: [facility] Attending Dr: [...] Travis Jr., D.OJuanis05/11/2022 12:18 PM Dictation Location: [facility]- Transcribed By: [facility] 05/11/22 1218 Dictated By: Tan Travis Jr, DO 05/11/22 1217 Signed By: 05/11/22 1218 Normal [facility] XR wrist LT min 3V* [facility] JRKICKZ Other XR wrist LT min 3V* [facility] [employer] Other XR wrist LT min 3V* [address] [place] [address] [employer] Other XR wrist LT min 3V* [place] [address] [employer] Other XR wrist LT min 3V* XRay Report [employer] Other XR wrist LT min 3V* Signed [employer] Other XR wrist LT min 3V* Patient: Nazia Harper MR#: [id number] [employer] Other XR wrist LT min 3V* 67 [employer] Other XR wrist LT min 3V* : 1995 Acct:[id number] [employer] Other XR wrist LT min 3V* Age/Sex: 26 / F ADM Date: 05/11/22 [employer] Other XR wrist LT min 3V* Loc: [facility] Room: Type: [facility] [employer] Other XR wrist LT min 3V* Attending Dr: Dee Buchanan MD [employer] Other XR wrist LT min 3V* Copies to: Dee Buchanan MD [employer] Other XR wrist LT min 3V* Ordering Provider: Dee Buchanan MD [employer] Other XR wrist LT min 3V* Date of Service: 05/11/22 [employer] Other XR wrist LT min 3V* XR/XR wrist LT min 3V*: PAIN [employer] Other XR wrist LT min 3V* LEFT WRIST - 4 views [employer] Other XR wrist LT min 3V* CLINICAL HISTORY: Ganglion cyst posterior aspect at the level of the carpals. [employer] Other XR wrist LT min 3V* COMPARISON: None [employer] Other XR wrist LT min 3V* FINDINGS: [employer] Other XR wrist LT min 3V* No focal soft tissue abnormality is noted. No acute bony process is seen. Carpal bones appear [employer] Other XR wrist LT min 3V* unremarkable. [employer] Other XR wrist LT min 3V* XR/XR wrist LT min 3V* [employer] Other XR wrist LT min 3V* IMPRESSION: [employer] Other XR wrist LT min 3V* NO ACUTE BONY PROCESS. [employer] Other XR wrist LT min 3V* Impression dictated by: Tan Travis Jr., D.OJuanis05/11/2022 12:18 PM [employer] Other XR wrist LT min 3V* Dictation Location: [place] [address] [employer] Other XR wrist LT min 3V* Transcribed By: JOSE ALEJANDRO 05/11/22 1218 [employer] Other XR wrist LT min 3V* Dictated By: Tan Travis Jr, DO 05/11/22 1217 [employer] Other XR wrist LT min 3V* Signed By: [employer] Other XR wrist LT min 3V* 05/11/22 1218 [employer] Other PAP ACOG PANEL 2: 21 to 29on 08-15-2021 . . Normal [facility] Comment on above: Result Comment: Perf ormed at: BA Performed By: #### [id number] #### [facility] [address] [place] [address] Dr. Alek Fu Age Gdln ACOG Testing [facility] Comment on above: Performed By: #### [id number] #### [facility] [address] [place] [address] Dr. Alek Fu DIAGNOSIS: Comment [facility] Comment on above: Result Comment: NEGA TIVE FOR INTRAEPITHELIAL LESION OR MALIGNANCY. Performed at: BA Performed By: #### [id number] #### [facility] [address] [place] [address] Dr. Alek Fu Methodology: Comment [facility] Comment on above: Result Comment: This liquid based ThinPrep(R) pap test was screened with the use of an image guided system. Performed at: WB Performed By: #### [id number] #### [facility] [address] [place] [address] Dr. Alek Fu Note: Comment [facility] Comment on above: Result Comment: The Pap smear is a screening test designed to aid in the detection of premalignant and malignant conditions of the uterine cervix. It is not a diagnostic procedure and should not be used as the sole means of detecting cervical cancer. Both false-positive and false-negative reports do occur. . Performed at: WB Performed By: #### [id number] #### [facility] [address] [place] [address] Dr. Alek Fu Performed by: Comment [facility] Comment on above: Result Comment: Elen Carrillo, Cutter Operator Helper (ASCP) Performed at: BA Performed By: #### 4 [id number] #### [facility] [address] [place] [address] Dr. Alek Fu Reflex Criteria: Comment Normal [facility] Comment on above: Result Comment: The HPV DNA reflex criteria were not met with this specimen result therefore, no HPV testing was performed. . Performed at: BA Performed By: #### [id number] #### [facility] [address] [place] [address] Dr. Alek Fu Specimen adequacy: Comment Normal [facility] Comment on above: Result Comment: Sati sfactory for evaluation. Endocervical and/or squamous metaplastic cells (endocervical component) are present. Performed at: BA Performed By: #### [id number] #### [facility] [address] [place] [address] Dr. Alek Fu XR KNEE SABRINA 4V [...] by: ZURI PHOENIX Date: 2021-07-17 17:09 Normal [facility] CBC AUTO DIFFon 12-08-2020 BASO # 0.0 103/ul Normal 0.0-0.1 [facility] Comment on above: Performed By: #### C BC #### [facility] [address] [place] [address] Dr. Alek Fu Basophils/100 WBC (Bld) 0.2 % Normal 0.2-2.0 [facility] Comment on above: Performed By: #### C BC #### [facility] [address] [place] [address] Dr. Alek Fu EO # 0.0 103/ul Normal 0.0-0.7 [facility] Comment on above: Performed By: #### C BC #### [facility] [address] [address] [address] Alek Fu Eosinophils/100 WBC (Bld) 0.6 % Critically low 0.9-7.0 [facility] Comment on above: Performed By: #### C BC #### [facility] [address] [address] [address] Alek Fu Erythrocyte distribution width (RBC) [Ratio] 12.4 % Normal 11.0-15.0 [facility] Comment on above: Performed By: #### C BC #### [facility] [address] [place] [address] Dr. Alek Fu Hematocrit (Bld) [Volume fraction] 44.3 % Normal 36.0-48.0 [facility] Comment on above: Performed By: #### C BC #### [facility] [address] [place] [address] Dr. Alek Fu Hemoglobin (Bld) [Mass/Vol] 15.4 g/dL Normal 12.0-16.0 [facility] Comment on above: Performed By: #### C BC #### [facility] [address] [place] [address] Dr. Alek Fu IG # 0.04 10e3/ul Critically high 0.00-0.03 [facility] Comment on above: Performed By: #### C BC #### [facility] [address] [place] [address] Dr. Alek Fu IG % 0.6 % Critically high 0.0-0.5 [facility] Comment on above: Performed By: #### C BC #### [facility] [address] [place] [address] Dr. Alek Fu LYMPH # 3.2 103/ul Normal 1.2-3.8 [facility] Comment on above: Performed By: #### C BC #### [facility] [address] [place] [address] Dr. Alek Fu Lymphocytes/100 WBC (Bld) 50.2 % Normal 20.5-60.0 [facility] Comment on above: Performed By: #### C BC #### [facility] [address] [place] [address] Dr. Alek Fu MANUAL DIFF REQ NO Normal [facility] Comment on above: Performed By: #### C BC #### [facility] [address] [place] [address] Dr. Alek Fu MCH (RBC) [Entitic mass] 28.7 pg Normal 26.7-34.0 [facility] Comment on above: Performed By: #### C BC #### [facility] [address] [place] [address] Dr. Alek Fu MCHC (RBC) [Mass/Vol] 34.8 g/dL Normal 29.9-35.2 [facility] Comment on above: Performed By: #### C BC #### [facility] [address] [place] [address] Dr. Alek Fu MCV (RBC) [Entitic vol] 82.5 fL Normal 81.0-99.0 [facility] Comment on above: Performed By: #### C BC #### [facility] [address] [place] [address] Dr. Alek Fu MONO # 0.6 103/ul Normal 0.3-0.8 [facility] Comment on above: Performed By: #### C BC #### [facility] [address] [place] [address] Dr. Alek Fu Monocytes/100 WBC (Bld) 10.0 % Normal 1.7-12.0 [facility] Comment on above: Performed By: #### C BC #### [facility] [address] [place] [address] Dr. Alek Fu NEUT # 2.4 103/ul Normal 1.4-6.5 [facility] Comment on above: Performed By: #### C BC #### [facility] [address] [place] [address] Dr. Alek Fu Neutrophils/100 WBC (Bld) 38.4 % Critically low 43.0-75.0 [facility] Comment on above: Performed By: #### C BC #### [facility] [address] [place] [address] Dr. Alek Fu Platelet mean volume (Bld) [Entitic vol] 9.9 fL Normal 9.5-13.5 [facility] Comment on above: Performed By: #### C BC #### [facility] [address] [place] [address] Dr. Alek Fu PLT 206 103/ul Normal 150-450 [facility] Comment on above: Performed By: #### C BC #### [facility] [address] [place] [address] Dr. Alek Fu RBC 5.37 106/ul Normal 4.20-5.40 [facility] Comment on above: Performed By: #### C BC #### [facility] [address] [place] [address] Dr. Alek Fu WBC 6.3 103/ul Normal 4.0-11.0 [facility] Comment on above: Performed By: #### C BC #### [facility] [address] [place] [address] Dr. Alek Fu ER URINE PROFILEon 1 Bilirubin Ql (U) Negative Normal NEGATIVE [facility] Comment on above: Performed By: #### E RUR #### [facility] [address] [place] [address] Dr. Alek Fu Clarity (U) CLEAR Normal CLEAR [facility] Comment on above: Performed By: #### E RUR #### [facility] [address] [place] [address] Dr. Alek Fu Color (U) YELLOW Normal YELLOW [facility] Comment on above: Performed By: #### E RUR #### [facility] [address] [place] [address] Dr. Alek Fu ERUD A micrscopic examination will be performed if indicated. Normal [facility] Comment on above: Performed By: #### E RUR #### [facility] [address] [place] [address] Dr. Alek Fu Glucose Ql (U) Negative Normal NEGATIVE [facility] Comment on above: Performed By: #### E RUR #### [facility] [address] [place] [address] Dr. Alek Fu Hemoglobin Ql (U) TRACE-INTACT Abnormal NEGATIVE [facility] [facility] Comment on above: Performed By: #### E RUR #### [facility] [address] [place] [address] Dr. Alek Fu Ketones Ql (U) TRACE Abnormal NEGATIVE [facility] Comment on above: Performed By: #### E RUR #### [facility] [address] [place] [address] Dr. Alek Fu LEUKOCYTES Negative Normal NEGATIVE [facility] Comment on above: Performed By: #### E RUR #### [facility] [address] [place] [address] Dr. Alek Fu Nitrite Ql (U) Negative Normal NEGATIVE [facility] Comment on above: Performed By: #### E RUR #### [facility] [address] [place] [address] Dr. Alek Fu pH (U) 6.0 [pH] Normal 5-9 [facility] Comment on above: Performed By: #### E RUR #### [facility] [address] [place] [address] Dr. Alek Fu SPEC GRAVITY 1.015 Normal 1.005-<=1.025 [facility] Comment on above: Performed By: #### E RUR #### [facility] [address] [place] [address] Dr. Alek Fu UA PROTEIN Negative Normal NEGATIVE/ TRACE [facility] Comment on above: Performed By: #### E RUR #### [facility] [address] [place] [address] Dr. Alek Fu UR MICRO IND NOT INDICATED Normal [facility] Comment on above: Performed By: #### E RUR #### [facility] [address] [place] [address] Dr. Alek Fu Urobilinogen Qn (U) 0.2 {Roya'U}/dL Normal 0.2 - 1.0 [facility] Comment on above: Performed By: #### E RUR #### [facility] [address] [address] [address] Alek Fu URon 12-08-2020 , QUAL Negative Normal NEGATIVE [facility] Comment on above: Performed By: #### P REGU #### [facility] [address] [address] [address] Alek Fu PROF CHEM 8 (BAS METB)on Anion gap [Moles/Vol] 13.0 mmol/L Normal [facility] Comment on above: Performed By: #### B MP #### [facility] [address] [address] [address] Alek Fu Calcium [Mass/Vol] 9.0 mg/dL Normal 8.4-10.2 [facility] Comment on above: Performed By: #### B MP #### [facility] [address] [place] [address] Dr. Alek Fu Chloride [Moles/Vol] 103 mmol/L Normal 98-107 [facility] Comment on above: Performed By: #### B MP #### [facility] [address] [address] [address] Alek Fu CO2 [Moles/Vol] 25.0 mmol/L Normal 22.0-30.0 [facility] Comment on above: Performed By: #### B MP #### [facility] [address] [place] [address] Dr. Alek Fu Creatinine [Mass/Vol] 0.96 mg/dL Normal 0.52-1.04 [facility] Comment on above: Performed By: #### B MP #### [facility] [address] [address] [address] Alek Fu EGFR-AF NEW ZEALANDER >60 Normal >=60 [facility] Comment on above: Performed By: #### B MP #### [facility] [address] [place] [address] Dr. Alek Fu EGFR-NON AF NEW ZEALANDER >60 Normal >=60 [facility] Comment on above: Performed By: #### B MP #### [facility] [address] [address] [address] Alek Fu Glucose [Mass/Vol] 99 mg/dL Normal 74-[address] [facility] Comment on above: Performed By: #### B MP #### [facility] [address] [address] [address] Alek Fu Potassium [Moles/Vol] 3.0 mmol/L Critically low 3.4-5.0 [facility] Comment on above: Performed By: #### B MP #### [facility] [address] [address] [address] Alek Fu Sodium [Moles/Vol] 138 mmol/L Normal 137-[address] [facility] Comment on above: Performed By: #### B MP #### [facility] [address] [address] [address] Alek Fu Urea nitrogen [Mass/Vol] 11.0 mg/dL Normal 7.0-17.0 [facility] Comment on above: Performed By: #### B MP #### [facility] [address] [address] [address] Alek Fu Urea nitrogen/Creatinin e [Mass ratio] 11.5 mg/mg Normal [facility] Comment on above: Performed By: #### B MP #### [facility] [address] [address] [address] Alek [facility] SARS-CoV-2 (COVID-19) RNA SANTANA+probe Ql (Unsp spec) Detected Critically abnormal NOT DETECTED [facility] Comment on above: Result Comment: This test is not yet approved or cleared by the [place] FDA. When there are no FDA-approved or cleared tests available, and other criteria are met, FDA can make tests available under an emergency access mechanism called an Emergency Use Authorization (EUA). The EUA for this test is supported by the Room Service Runner of Health and Human Service's (HHS's) declaration [...] longer be used). Performed By: #### C [facility] #### [facility] [address] [place] [address] Dr. Alek Fu Vital Signs Date Time Vital Sign Value Performing Clinician Mayelin cruz 03-19-2024 10:38-0500 Body mass index (BMI) [Ratio] 37.68 kg/m2 Amanda Grenola PA Work Phone: [facility] 03-19-2024 10:38-0500 Body weight 93.44 kg Amanda Juan PA Work Phone: [facility] 03-19-2024 10:38-0500 Diastolic blood pressure 76 mm[Hg] Amanda Grenola PA Work Phone: [facility] 03-19-2024 10:38-0500 Systolic blood pressure 122 mm[Hg] Amanda Juan PA Work Phone: [facility] 03-05-2024 09:47-0500 Body mass index (BMI) [Ratio] 37.93 kg/m2 Amanda Grenola PA Work Phone: [facility] 03-05-2024 09:47-0500 Body weight 94.08 kg Amanda Juan PA Work Phone: [facility] 03-05-2024 09:47-0500 Diastolic blood pressure 74 mm[Hg] Amanda Juan PA Work Phone: [facility] 03-05-2024 09:47-0500 Systolic blood pressure 110 mm[Hg] Amanda Grenola PA Work Phone: [facility] 03-01-2024 11:46-0500 Body mass index (BMI) [Ratio] 37.57 kg/m2 Amanda Grenola PA Work Phone: [facility] 03-01-2024 11:46-0500 Body weight 93.17 kg Amanda Grenola PA Work Phone: [facility] 03-01-2024 11:46-0500 Diastolic blood pressure 90 mm[Hg] Amanda Grenola PA Work Phone: [facility] 03-01-2024 11:46-0500 Systolic blood pressure 130 mm[Hg] Amanda Grenola PA Work Phone: [facility] 02-20-2024 10:07-0500 Body mass index (BMI) [Ratio] 37.68 kg/m2 Anai Jennyfer DO Work Phone: [facility] 02-20-2024 10:07-0500 Body weight 93.44 kg Anai Jennyfer DO Work Phone: [facility] 02-20-2024 10:07-0500 Diastolic blood pressure 80 mm[Hg] Anai Jennyfer DO Work Phone: [facility] 02-20-2024 10:07-0500 Systolic blood pressure 122 mm[Hg] Anai Jennyfer DO Work Phone: [facility] 01-17-2024 10:15-0400 Body mass index (BMI) [Ratio] 36 kg/m2 Amanda Juan PA Work Phone: [facility] 01-17-2024 10:15-0400 Body weight 89.27 kg Amanda Juan PA Work Phone: [facility] 01-17-2024 10:15-0400 Diastolic blood pressure 70 mm[Hg] Amanda Grenola PA Work Phone: [facility] 01-17-2024 10:15-0400 Systolic blood pressure 122 mm[Hg] Amanda Juan PA Work Phone: [facility] 12-20-2023 09:58-0400 Body mass index (BMI) [Ratio] 34.93 kg/m2 Amanda Juan PA Work Phone: [facility] 12-20-2023 09:58-0400 Body weight 86.64 kg Amanda Grenola PA Work Phone: [facility] 12-20-2023 09:58-0400 Diastolic blood pressure 76 mm[Hg] Amanda Juan PA Work Phone: [facility] 12-20-2023 09:58-0400 Systolic blood pressure 124 mm[Hg] Amanda Martinez PA Work Phone: [facility] 11-23-2023 09:47-0400 Body height 157.5 cm Lorene Welchmer PA Work Phone: [facility] 11-23-2023 09:47-0400 Body mass index (BMI) [Ratio] 34.39 kg/m2 Lorene Hemmer PA Work Phone: [facility] 11-23-2023 09:47-0400 Body weight 85.28 kg Lorene Hemmer PA Work Phone: [facility] 11-23-2023 09:47-0400 Diastolic blood pressure 86 mm[Hg] Lorene Hemmer PA Work Phone: [facility] 11-23-2023 09:47-0400 Heart rate 81 /min Lorene Hemmer PA Work Phone: [facility] 11-23-2023 09:47-0400 Respiratory rate 16 /min Lorene Hemmer PA Work Phone: [facility] 11-23-2023 09:47-0400 SaO2% (BldA) [Mass fraction] 98 % Lorene Hemmer PA Work Phone: [facility] 11-23-2023 09:47-0400 Systolic blood pressure 124 mm[Hg] Lorene Hemmer PA Work Phone: [facility] 11-22-2023 09:29-0400 Body mass index (BMI) [Ratio] 34.41 kg/m2 Anai Jennyfer DO Work Phone: [facility] 11-22-2023 09:29-0400 Body weight 85.33 kg Anai Jennyfer DO Work Phone: [facility] 11-22-2023 09:29-0400 Diastolic blood pressure 74 mm[Hg] Anai Jennyfer DO Work Phone: [facility] 11-22-2023 09:29-0400 Systolic blood pressure [...] trimester Start: 03-05-2024 End: 03-05-2024 ambulatory AMANDA MARITNEZ Not Available Start: 03-02-2024 End: 03-02-2024 Clinisync [...] 11-25-2023 End: 11-25-2023 Telephone encounter Cecille De Leon MA [facility] Start: 11-23-2023 End: [...] ; Vaginal discharge; STD exposure; Mood disorder ([facility]) Start: 10-24-2023 End: 10-24-2023 ambulatory ANAI JENNYFER [...] Start: 05-11-2022 End: 05-11-2022 ambulatory Dee Buchanan Facility:[facility] Start: 05-11-2022 End: 05-11-2022 ambulatory MD Dee Buchanan Work Phone: [facility] Work Phone: Start: 05-11-2022 End: 05-11-2022 Patient encounter procedure MD Dee Buchanan Work Phone: [facility] Start: 08-10-2021 End: [...] Work Phone: Start: 03-02-2024 SRMCOH PROTHROMBIN T ASHELY INR W/O COUM Amanda ROMAN Work Phone: [...] EST Ancillary Procedure [facility] [address] [place] [address] [facility] Start: 03-01-2024 End: 03-01-2025 Alanine aminotransferase [Enzymatic activity/volume] in Serum or Plasma ALT Lab Routine induced hypertension, antepartum Expected: 03/01/2024 (Approximate), Expires: 03/01/2025 [facility] Comment on above: Expected: 03/01/2024 (Approximate), Expires: 03/01/2025 Start: 03-01-2024 End: 03-01-2025 Aspartate aminotransferase [Enzymatic activity/volume] in Serum or Plasma AST Lab Routine induced hypertension, antepartum Expected: 03/01/2024 (Approximate), Expires: 03/01/2025 [facility] Comment on above: Expected: 03/01/2024 (Approximate), Expires: 03/01/2025 Start: 03-01-2024 End: 03-01-2025 CBC W Auto Differential panel - Blood CBC and differential Lab Routine induced hypertension, antepartum Expected: 03/01/2024 (Approximate), Expires: 03/01/2025 [facility] Comment on above: Expected: 03/01/2024 (Approximate), Expires: 03/01/2025 Start: 03-01-2024 End: 03-01-2025 Creatinine [Mass/volume] in Serum or Plasma Creatinine Lab Routine induced hypertension, antepartum Expected: 03/01/2024 (Approximate), Expires: 03/01/2025 [facility] Work Phone: Comment on above: Expected: 03/01/2024 (Approximate), Expires: 03/01/2025 Start: 03-01-2024 End: 03-01-2025 Lactate dehydrogenase [Enzymatic activity/volume] in Serum or Plasma by Lactate to pyruvate reaction Lactate dehydrogenase Lab Routine induced hypertension, antepartum Expected: 03/01/2024, Expires: 03/01/2025 [facility] Comment on above: Expected: 03/01/2024 , Expires: 03/01/2025 Start: 03-01-2024 End: 03-01-2025 Protein, urine, 24 hour Protein, urine, 24 hour Lab Routine induced hypertension, antepartum Expected: 03/01/2024 (Approximate), Expires: 03/01/2025 [facility] Comment on above: Expected: 03/01/2024 (Approximate), Expires: 03/01/2025 Start: 03-01-2024 End: 03-01-2025 Pt and ptt Pt and ptt Lab Routine induced hypertension, antepartum Expected: 03/01/2024, Expires: 03/01/2025 [facility] Comment on above: Expected: 03/01/2024 , Expires: 03/01/2025 Start: 03-01-2024 End: 03-01-2025 Urate [Mass/volume] in Serum or Plasma Uric acid Lab Routine induced hypertension, antepartum Expected: 03/01/2024 (Approximate), Expires: 03/01/2025 [facility] Comment on above: Expected: 03/01/2024 (Approximate), Expires: 03/01/2025 Start: 03-01-2024 End: 03-01-2025 Urea nitrogen [Mass/volume] in Serum or Plasma BUN Lab Routine induced hypertension, antepartum Expected: 03/01/2024, Expires: 03/01/2025 [facility] Comment on above: Expected: 03/01/2024 , Expires: 03/01/2025 Start: 03-01-2024 End: 03-01-2025 US biophysical profile w non stress test US biophysical profile w non stress test Imaging Routine Hypertension affecting in third trimester Lightheadedness Dizziness Expected: 03/01/2024 (Approximate), Expires: 03/01/2025 [facility] Comment on above: Expected: 03/01/2024 [...] of anatomy Expected: 01/20/2024 (Approximate), Expires: 12/19/2024 [facility] Work Phone: Comment on above: Expected: 01/20/2024 (Approximate), Expires: 12/19/2024 Start: 01-17-2024 End: 01-16-2025 CBC panel - Blood by Automated count CBC Lab Routine Diabetes mellitus screening Expected: 01/17/2024 (Approximate), Expires: 01/16/2025 [facility] [employer] Work Phone: Comment on above: Expected: 01/17/2024 (Approximate), Expires: 01/16/2025 Start: 01-17-2024 End: 01-16-2025 Measurement of glucose 1 hour after glucose challenge for glucose tolerance test Glucose tolerance, 1 hour Lab Routine Diabetes mellitus screening Expected: 01/17/2024 (Approximate), Expires: 01/16/2025 [facility] Comment on above: Expected: 01/17/2024 (Approximate), Expires: 01/16/2025 Start: 01-17-2024 End: 01-17-2024 Patient encounter procedure [facility] Comment on above: Arrived Start: 01-17-2024 End: 01-17-2024 Professional / ancillary services management 01/17/2024 9:30 AM EDT Ancillary Procedure [facility] [address] [place] [address] [facility] Start: 12-20-2023 End: 12-20-[address] [facility] Comment on above: Arrived Start: 12-14-2023 End: 12-14-2023 Professional / ancillary services management 12/14/2023 9:00 AM EDT Ancillary Procedure [facility] [address] [place] [id number] [facility] Start: 11-22-2023 End: 05-21-2024 Alpha fetoprotein, maternal Alpha fetoprotein, maternal Lab Routine Second trimester Expected: 11/22/2023 (Approximate), Expires: 05/21/2024 [facility] Comment on above: Expected: 11/22/2023 (Approximate), Expires: 05/21/2024 Start: 11-22-2023 End: 11-21-2024 US for US OB ANATOMY SINGLE W US OB CERVICAL LENGTH Imaging Routine Screening, , for anatomic survey Expected: 11/22/2023 (Approximate), Expires: 11/21/2024 [facility] Comment on above: Expected: 11/22/2023 (Approximate), Expires: 11/21/2024 Start: 11-20-2023 Influenza vaccination Influenza Vacc ine (#1) [facility] CHLAMYDIA TRACHOMATI S (GENITO/STI) CHLAMYDIA TRACHOMATIS (GENITO/STI) Lab Routine STD exposure Ordered: 11/22/2023 [facility] Comment on above: Ordered: 11/22/2023 Cytology Cervical or vaginal smear or scraping study Pap Smear Pathology and Cytology Routine Well woman exam with routine gynecological exam Ordered: 11/22/2023 [facility] Comment on above: Ordered: 11/22/2023 Neisseria gonorrhoea e DNA [Presence] in Unspecified specimen by SANTANA with probe detection Neisseria gonorrhea DNA probe, direct Lab Routine STD exposure Ordered: 11/22/2023 [facility] Comment on above: Ordered: 11/22/2023 SURESWAB(R) ADVANCED VAGINITIS PLUS, TMA SURESWAB(R) ADVANCED VAGINITIS PLUS, TMA Pathology and Cytology Routine Vaginal discharge Ordered: 11/22/2023 [facility] Work Phone: Comment on above: Ordered: 11/22/2023 Immunizations Immunization Date Immunization Notes Care Provider [facility] 12-09-2019 diphtheria, tetanus toxoids and pertussis vaccine Lorene Hemmer PA Work Phone: [facility] 12-09-2019 measles, mumps and rubella virus vaccine Lorene Hemmer PA Work Phone: [facility] 05-30-2000 diphtheria, tetanus toxoids and acellular pertussis vaccine, unspecified formulation Lorene Hemmer PA Work Phone: [facility] Work Phone: 05-30-2000 measles, mumps and rubella virus vaccine Lorene Hemmer PA Work Phone: [facility] 05-30-2000 poliovirus vaccine, inactivated Lorene Hemmer PA Work Phone: [facility] 03-30-2000 influenza, seasonal, injectable Lorene Hemmer PA Work Phone: [facility] 03-30-2000 influenza virus vaccine, unspecified formulation Lorene Hemmer PA Work Phone: [facility] 09-12-1998 haemophilus influenz ae type b vaccine, conjugate unspecified formulation Lorene Hemmer PA Work Phone: [facility] 11-28-1996 diphtheria, tetanus toxoids and acellular pertussis vaccine, unspecified formulation Lorene Hemmer PA Work Phone: [facility] 11-28-1996 haemophilus influenz ae type b vaccine, conjugate unspecified formulation Lorene Hemmer PA Work Phone: [facility] 11-28-1996 measles, mumps and rubella virus vaccine Lorene Hemmer PA Work Phone: [facility] 10-27-1996 trivalent poliovirus vaccine, live, oral Lorene Hemmer PA Work Phone: [facility] 01-31-1996 DTP-Haemophilus influenzae type b conjugate vaccine Lorene Hemmer PA Work Phone: [facility] 01-31-1996 hepatitis B vaccine, pediatric or pediatric/adolescent dosage Lorene Hemmer PA Work Phone: [facility] 01-31-1996 trivalent poliovirus vaccine, live, oral Lorene Hemmer PA Work Phone: [facility] 1995 DTP-Haemophilus influenzae type b conjugate vaccine Lorene Hemmer PA Work Phone: [facility] 1995 trivalent poliovirus vaccine, live, oral Lorene Hemmer PA Work Phone: [facility] 1995 DTP-Haemophilus influenzae type b conjugate vaccine Lorene Hemmer PA Work Phone: [facility] 1995 hepatitis B vaccine, pediatric or pediatric/adolescent dosage Lorene Hemmer PA Work Phone: [facility] 1995 haemophilus influenz ae type b vaccine, conjugate unspecified formulation Lorene Hemmer PA Work Phone: [facility] 1995 hepatitis B vaccine, pediatric or pediatric/adolescent dosage Lorene Hemmer PA Work Phone: [facility] Payers Date Payer Category Payer [facility] (unspecified) [id number] 2023 Private Health Insurance [id number] 2022 Private Health Insurance [id number] 2022 Self-pay 2022 Unknown [id number] 1995 Unknown [id number] 2.16.84 [id number] 1995 Unknown [id number] 2.16.84 [id number] 1995 Unknown [id number] 2.16.84 0.1.463778.3.579.2.593 1995 Unknown [id number] 2.16.84 0.1.202637.3.579.2.593 1995 Unknown [id number] 2.16.840.1.165956.3.579.2.1258 1995 Unknown [id number] 2.16.840.1.740167.3.579.2.1258 1995 Unknown [id number] 2.16840.1.621502.3.579.2.1258 1995 Unknown [id number] 2.16840.1.874395.3.579.2.1258 1995 Unknown [id number] 2.16840.1.335490.3.579.2.1258 1995 Unknown [id number] 2.16840.1.345683.3.579.2.1258 1995 Unknown [id number] 2.16840.1.820988.3.579.2.1258 1995 Unknown [id number] 2.840.1.570368.3.579.2.1258 1995 Unknown [id number] 2.840.1.685749.3.579.2.1258 1995 Unknown [id number] 2.16840.1.848940.3.579.2.1258 1995 Unknown [id number] 2.840.1.884351.3.579.2.1258 1995 Unknown [id number] 2.840.1.443871.3.579.2.1258 1995 Unknown [id number] 2.16840.1.409134.3.579.2.1258 1995 Unknown [id number] 2.840.1.921976.3.579.2.1258 1995 Unknown [id number] 2.840 .1.013227.3.579.2.9 1959 Unknown [id number] 1959 Unknown [id number] 1959 Unknown [id number] Unknown [id number] Social History Date Type Detail Facility Tobacco smoking stat us NHIS Unknown if ever smoked [facility] Work Phone: Start: 1995 Sex Assigned At Female [facility] Start: 09-08-2023 End: 11-23-2023 Sex [...] to any clubs or organizations such as pentecostalism groups, unions, fraternal or athletic groups, or [...] of: ABEL Carroll documented in this encounter [facility] 03-05-2024 History of Presen t [...] auditory processing disorder Chronic ear infection Depression ([facility]) ETD (eustachian tube dysfunction) Miscarriage TMJ (dislocation of temporomandibular joint) HISTORY PAST MEDICAL HISTORY SOCIAL HISTORY Past Medical History: Diagnosis Date Allergies Central auditory processing disorder Chronic ear infection Depression ([facility]) ETD (eustachian tube [...] of: ABEL Carroll documented in this encounter [facility] 03-01-2024 History of Presen t [...] of: ABEL Carroll documented in this encounter [facility] 02-20-2024 History of Presen t [...] nursing note reviewed. Exam conducted with a electrician bus present. Vitals: Estimated body mass index is [...] Anai Burger DO documented in this encounter [facility] 01-17-2024 History of Presen t [...] nursing note reviewed. Exam conducted with a electrician bus present. Vitals: Estimated body mass index is [...] of: ABEL Carroll documented in this encounter [facility] 12-20-2023 History of Presen t [...] of: ABEL Carroll documented in this encounter [facility] 11-25-2023 Telephone encount er Note Understood. [facility] 11-25-2023 Miscellaneous Notes Formattin g of this note might be different from the original. Understood. Nazia called stating her ob just wants her on Effexor instead of buspirone so that's what she'll be on documented in this encounter [facility] 11-25-2023 Telephone encount er Note Nazia called stating her ob just wants her on Effexor instead of buspirone so that's what she'll be on [facility] 11-23-2023 History of Presen t illness Narrative Images from the original note were not included. Subjective Patient ID: Nazia uRiz is a 28 y.o. female who presents [...] Medication Follow Up. documented in this encounter [facility] 11-22-2023 History of Presen t [...] nursing note reviewed. Exam conducted with a electrician bus present. Vitals: Estimated body mass index is [...] Anai Burger DO documented in this encounter [facility] 05-11-2022 Evaluation note Encounter Date [...] Instructed patient to wear brace for activities. [employer] Other Evaluation noteNo assessment information available [facility] Work Phone: Evaluation note* Diagnosis Encounter [...] History learning disability Surgical History tymponostomy x7 [employer] Other Summary Purpose Family History No Family History Records FoundNo Family History Records FoundNo Family History Records Found Advance Directives No Advanced Directives Records FoundNo Advanced Directives Records FoundNo Advanced Directives Records Found Additional Source Comments INFORMATION SOURCE (unrecogn ized section and content) DATE CREATED AUTHOR 09/12/2021 [facility] DATE CREATED AUTHOR AUTHOR'S ORGANIZ ATION 05/21/2022 [facility] DATE CREATED AUTHOR AUTHOR'S ORGANIZ ATION 03/20/2024 [facility] EPIC Care Teams (unrecognized sec tion and content) Team Status: Inactive Member Role Status Dates Dee Buchanan MD Attending Provider Active Salesforce Consultant Relationship Specialty Start Date End Date Verito Lamb MD [address] [facility] [address] [place] [address] PCP - General Family Medicine 10/18/22 Salesforce Consultant Relationship Specialty Start Date End Date Verito Lamb MD [address] [facility] [address] [place] [address] PCP - General Family Medicine 10/18/22 Salesforce Consultant Relationship Specialty Start Date End Date Verito Lamb MD [address] [facility] [address] [place] [address] PCP - General Family Medicine 10/18/22 Salesforce Consultant Relationship Specialty Start Date End Date Verito Lamb MD [address] [facility] [address] [place] [address] PCP - General Family Medicine 10/18/22 Salesforce Consultant Relationship Specialty Start Date End Date Verito Lamb MD [address] [facility] [address] [place] [address] PCP - General Family Medicine 10/18/22 Salesforce Consultant Relationship Specialty Start Date End Date Verito Lamb MD [address] [facility] [address] [place] [address] PCP - General Family Medicine 10/18/22 Salesforce Consultant Relationship Specialty Start Date End Date Verito Lamb MD [address] [facility] [address] [place] [address] PCP - General Family Medicine 10/18/22 Salesforce Consultant Relationship Specialty Start Date End Date Verito Lamb MD [address] [facility] [address] [place] [address] PCP - [facility] Medicine 10/18/22 Salesforce Consultant Relationship Specialty Start Date End Date Verito Lamb MD [address] [facility] [address] [place] [address] PCP - [facility] Medicine 10/18/22 Salesforce Consultant Relationship Specialty Start Date End Date Verito Lamb MD [address] [facility] [address] [place] [address] PCP - [facility] Medicine 10/18/22 Salesforce Consultant Relationship Specialty Start Date End Date Verito Lamb MD [address] [facility] [address] [place] [address] PCP - [facility] 10/18/22 Salesforce Consultant Relationship Specialty Start Date End Date Verito Lamb MD [address] [facility] [address] [place] [address] PCP - [facility] 10/18/22 Salesforce Consultant Relationship Specialty Start Date End Date Verito Lamb MD [address] [facility] [address] [place] [address] PCP - [facility] 10/18/22 Goals (unrecognized section and [...] BE BASED ON THE PRIMARY CLINICAL RECORDS. [facility] provides no warranty or guarantee of the accuracy or completeness of information in this document.
--- NOTE | 2024-03-31 14:50 | US_ITS ---
[address] [address] Patient Name: ELIZABETH MOLINA MRN: [id number] date: 1995 Sex: F Assigned Patient Location: [place] Current Patient Location: [facility] Accession/Order Number: [id number] Exam Date: 03/31/2024 14:52 Report Date: 03/31/2024 15:57 At the request of: GEE MARTINEZ Procedure: US OB BPP w non-stress EXAMINATION: US OB BPP w non-stress HISTORY:Hypertension COMPARISON: Ultrasound OB biophysical 03/24/2024 TECHNIQUE: Ultrasound biophysical profile was performed in the radiology department. BREATHING MOVEMENTS: 2 GROSS BODY MOVEMENTS: 2 TONE: 2 QUALITATIVE AMNIOTIC FLUID VOLUME: 2 PRESENTATION: CEPHALIC HEART RATE: 152.54 bpm AMNIOTIC FLUID VOLUME: 12.89 cm GESTATIONAL AGE: 35 weeks 3 days US/US OB BPP w non-stress IMPRESSION: Total biophysical profile score: 8 Electronically authenticated by: RICHARD SCHULZ Date: 03/31/2024 15:57
[2024-03-31 15:10] VITALS: BP 128/68; PULSE 78
== END 2024-03-31 15:30 | disposition home or self-care (01) ==
LOC: US 00:33 → FBC 14:59
PROVIDERS: PCP Family Medicine; Visit Provider Physician Assistant
DX: O16.3 Unspecified maternal hypertension, third trimester (principal); Z3A.35 35 weeks gestation of pregnancy
CPT/HCPCS: 76818

== ENCOUNTER 2024-04-03 19:40 | Outpatient (REF) | payer OTHER, SELFPAY ==
--- OUTSIDE RECORDS SUMMARY | 2024-04-03 19:56 | XMS_ITS | CCD ---
Author Organization [facility] Care Team Providers Care Project Product Manager Name Role Phone JENNYFER, DR OSPINA Admitting [...] Attending Unavailable ABEL MARTINEZ Consulting Unavailable DYLON CMKEON Consulting Unavailable MD Dee Buchanan Attending Provider Dee Buchanan Attending Unavailable Dee Buchanan Admitting Unavailable Dee Buchanan Unavailable Verito Lamb MD Primary Care Provider [phone] LORENE PLASENCIA Attending Unavailable LORENE PLASENICA Attending Unavailable LORENE PLASENCIA Attending Unavailable SANGEETHA [...] Facility (1 source) Cephalexin Drug Allergy [facility] Repository (20 sources) ARIPiprazole Drug Allergy 3 [facility] Work Phone: (20 sources) cariprazine Drug Allergy 3 [facility] Healthcare (20 sources) Cephalexin Drug Allergy 3 Unknown [facility] Healthcare (20 sources) Propofol Drug Allergy 3 Unknown [facility] (20 sources) Flavoring Agent Allergy to substance 3 Unknown [facility] Healthcare (20 sources) Mosquito (Diagnostic) Drug Allergy 3 Unknown [facility] Healthcare (1 source) Flavoring Agent (Non-Screening) Allergy to substance 3 Unknown [facility] Medications Current Medications Medication Drug [...] Active labetalol hydrochloride 100 mg oral tablet (10 sources) beta-Adrenergic Adina Start: 024 End: 025 take 1 tablet by mouth in the [...] Discontinued (Other) take 1 tablet by claudia every twelve hours buPROPion HCl 100 MG [...] depression; Translations: [Moderately severe depression] Onset: 08-18-2022 3 Chronic Other complications of (2 sources) Excessive [...] UA Positive Negative - 4(70) +++ mg/dL [facility] Comment on above: small Blood, UA Positive Negative - 50 Neno/mcL [facility] Comment on above: trace Clarity, UA Cloudy [facility] Color, UA Marilyn [facility] Glucose, UA Negative Negative - 1999(110) ++++ mg/dL [facility] Interpretation and review of laboratory results Abnormal [facility] re Ketones, UA Negative Negative - 160(16) ++++ mg/dL [facility] Leukocytes, UA Trace Negative - 500+++ Virgie/mcL [facility] Nitrite, UA Negative Negative - Positive [facility] pH, UA 6 5 - 9 [facility] Protein, UA Positive Negative - 1999(20) ++++ mg/dL [facility] Comment on above: 30 Spec Grav, UA 1.03 1 - 1.03 [facility] Urobilinogen, UA 0.2 0.2 - 12 mg/dL [facility] Urinalysis macro (dipstick) panel (U)on 03-05-2024 Bilirubin, UA Negative Negative - (70) +++ mg/dL [facility] Blood, UA Negative Negative - 50 Neno/mcL [facility] Clarity, UA Clear [facility] re Color, UA Yellow [facility] Glucose, UA Negative Negative - 1999(110) ++++ mg/dL [facility] Interpretation and review of laboratory results Abnormal [facility] Ketones, UA Negative Negative - 160(16) ++++ mg/dL [facility] Leukocytes, UA Positive Negative - 500+++ Ivrgie/mcL [facility] Comment on above: small Nitrite, UA Negative Negative - Positive [facility] pH, UA 6 5 - 9 [facility] Protein, UA Negative Negative - 1999(20) ++++ mg/dL [facility] Spec Grav, UA 1.015 1 - 1.03 [facility] Urobilinogen, UA 0.2 0.2 - 12 mg/dL [facility] APTTon 03-02-2024 aPTT Coag (Bld) [Time] 23.9 s [facility] No Panel Informationon 03-02 [facility] e SRMCOH PROTHROMBIN TIME INR W/O COUMon 03-02-2024 PT Coag (PPP) [Time] 9.9 s [facility] TBH INR 0.93 [facility] Comment on above: DESIRED INR: 2.0-3.0 CONDITIONS NOT LISTED BELOW 2.5-3.5 FOR PROSTHETIC HEART VALVE REPLACEMENT 2.5-3.5 RECURRENT THROMBOSIS Urinalysis macro (dipstick) panel (U)on 03-01-2024 Bilirubin, UA Negative Negative - 4(70) +++ mg/dL [facility] Blood, UA Negative Negative - 50 Neno/mcL [facility] Clarity, UA Clear [facility] Color, UA Yellow [facility] Glucose, UA Negative Negative - 1999(110) ++++ mg/dL [facility] Interpretation and review of laboratory results Abnormal [facility] re Ketones, UA Negative Negative - 160(16) ++++ mg/dL [facility] Leukocytes, UA Positive Negative - 500+++ Virgie/mcL [facility] Comment on above: small Nitrite, UA Negative Negative - Positive [facility] pH, UA 7 5 - 9 [facility] Protein, UA Trace Negative - 1999(20) ++++ mg/dL [facility] Spec Grav, UA 1.02 1 - 1.03 [facility] Urobilinogen, UA 0.2 0.2 - 12 mg/dL [facility] GLUCOSE 1 HOURon 01-25-2024 Glucose [Mass/Vol] 131 mg/dL High NINF - 13 0 mg/dL [facility] Interpretation and review of laboratory results Abnormal [facility] Urinalysis macro (dipstick) panel (U)on 01-17-2024 Bilirubin, UA Negative Negative - 4(70) +++ mg/dL [facility] Blood, UA Negative Negative - 50 Neno/mcL [facility] Clarity, UA Clear [facility] Color, UA Yellow [facility] Glucose, UA Negative Negative - 1999(110) ++++ mg/dL [facility] Interpretation and review of laboratory results Abnormal [facility] Ketones, UA Negative Negative - 160(16) ++++ mg/dL [facility] Leukocytes, UA Trace Negative - 500+++ Virgie/mcL [facility] Nitrite, UA Negative Negative - Positive [facility] pH, UA 6 5 - 9 [facility] Protein, UA Negative Negative - 1999(20) ++++ mg/dL [facility] Spec Grav, UA 1.02 1 - 1.03 [facility] Urobilinogen, UA 1.0 0.2 - 12 mg/dL [facility] Urinalysis macro (dipstick) panel (U)on 12-20-2023 Bilirubin, UA Negative Negative - 4(70) +++ mg/dL [facility] Blood, UA Negative Negative - 50 Neno/mcL [facility] Clarity, UA Clear [facility] re Color, UA Yellow [facility] Glucose, UA Negative Negative - 1999(110) ++++ mg/dL [facility] Interpretation and review of laboratory results Abnormal [facility] Ketones, UA Negative Negative - 160(16) ++++ mg/dL [facility] Leukocytes, UA Trace Negative - 500+++ Virgie/mcL [facility] Nitrite, UA Negative Negative - Positive [facility] pH, UA 6.5 5 - 9 [facility] [employer] Protein, UA Negative Negative - 1999(20) ++++ mg/dL [facility] Spec Grav, UA 1.025 1 - 1.03 [facility] Urobilinogen, UA 0.2 0.2 - 12 mg/dL [facility] AFP, SERUM, OPEN SPINA BIFID Aon 12-11-2023 AFP MOM 0.79 . [facility] AFP VALUE 34.7 ng/mL . [facility] [employer] COMMENT: Comment . [facility] [employer] Comment on above: Treva Gong , Ph.D., [facility] Director References: Available Upon Request. Multiples Of Median Cutoffs For AFP Elevations Banuelos 2.5 Black 2.8 IDD 2.0 Twins 4.5 Abbreviation Definitions IDD - Insulin Dep Diabetes OSBR - Open Spina Bifida Risk For further inquiries contact [employer] at [phone]. This test was developed and its performance characteristics determined by [employer]. It has not been cleared or approved by the Food and Drug Administration. Performed at: [facility] [address] [place], [place] [id number] Side Stapler: Maira Jones [facility], Phone: [phone] GEST. AGE ON COLLECTION DATE 19.3 . weeks [facility] GESTAT. AGE BASED ON LMP . [facility] Comment on above: Recalculations are n ot recommended when gestational dating by LMP and ultrasound are within 10 days. INSULIN DEP DIABETES No . [facility] INTERPRETATION Comment . [facility] Comment on above: Interpretation: Scre en Negative [...] Customer Services to discuss available options. The [employer] recommends amniocentesis be offered to women age 35 and older. [age] [facility] MULTIPLE GESTATION No . [facility] [place] [address] [place] [phone] . [facility] Rosa hurd RACE . [facility] Enubila RESULTS Report . [facility] [employer] TEST RESULTS: Negative . [facility] WEIGHT 188 . lbs [facility] [employer] N N LMP [id number] [phone] 16 N 1 Y 188 N N N N N White/ [facility] [employer] IGP,APTIMA HPV,AGE GDLNon AGE GDLN ACOG TESTING Note . [facility] Comment on above: TESTS RESULT FLAG UN ITS REF RANGE LAB Clinician Provided Cytology Information Source.............Cervix No. of containers..01 ThinPrep Vial Age Algo ACOG Madonna... FLAG LEGEND: L-Low Normal,H-High Normal,LL-Alert Low,HH-Alert High <-Panic Low,>-Panic High,A-Abnormal,AA-Critical Abnormal Performed at: 01 =G [facility] [place] [address] [place] [address] Tierra Morales MD, IGP, RFX APTIMA HPV ASCU Note . [facility] Comment on above: TESTS RESULT FLAG UN ITS REF RANGE LAB DIAGNOSIS: 02 NEGATIVE FOR INTRAEPITHELIAL LESION OR MALIGNANCY. Specimen adequacy: 02 Satisfactory for evaluation. No endocervical component is identified. Performed by: 02 Francesca Blanc, Bottle [employer] ([facility]) . 02 Note: Note 02 The Pap [...] High,A-Abnormal,AA-Critical Abnormal Performed at: 02 WB [facility] [address] [address] Tierra Morales MD, Performed at: =G - [facility] [address] [id number] Side Stapler: Tierra Morales MD, Phone: [phone] Performed at: - [facility] [address] [id number] Side Stapler: Tierra Morales MD, Phone: [phone] SPATULA-ALONE CERVIX [facility] Urinalysis macro (dipstick) panel (U)on 11-22-2023 Bilirubin, UA Negative Negative - 4(70) +++ mg/dL [facility] Blood, UA Negative Negative - 50 Neno/mcL [facility] Clarity, UA Clear [facility] Color, UA Yellow [facility] Glucose, UA Negative Negative - 1999(110) ++++ mg/dL [facility] Interpretation and review of laboratory results Normal [facility] Ketones, UA Negative Negative - 160(16) ++++ mg/dL [facility] Leukocytes, UA Negative Negative - 500+++ Virgie/mcL [facility] Nitrite, UA Negative Negative - Positive [facility] pH, UA 6.5 5 - 9 [facility] Protein, UA Negative Negative - 1999(20) ++++ mg/dL [facility] Spec Grav, UA 1.025 1 - 1.03 [facility] care Urobilinogen, UA 1.0 0.2 - 12 mg/dL [facility] XR wrist LT min 3V*on 2022 XR wrist LT min 3V* [facility] [place] [address] XRay Report Signed Patient: Nazia Harper MR#: [id number] : 1995 Acct:[id number] Age/Sex: 26 / F ADM Date: 05/11/22 Loc: [facility] Room: Type: [facility] Attending Dr: Dee Buchanan MD Copies to: [...] Travis Jr., D.OJuanis05/11/2022 12:18 PM Dictation Location: [facility] Transcribed By: [facility] 05/11/22 1218 Dictated By: Tan Travis Jr, DO 05/11/22 1217 Signed By: 05/11/22 1218 Normal [facility] XR wrist LT min 3V* [facility] [employer] Other XR wrist LT min 3V* [facility] [place] [employer] Other XR wrist LT min 3V* [address] [place] [address] [employer] Other XR wrist LT min 3V* [place] [address] [employer] Other XR wrist LT min 3V* XRay Report [employer] Other XR wrist LT min 3V* Signed [employer] Other XR wrist LT min 3V* Patient: Nazia Harper MR#: [id number] [employer] Other XR wrist LT min 3V* 67 [employer] Other XR wrist LT min 3V* : 1995 Acct:[id number] [employer] Other XR wrist LT min 3V* Age/Sex: 26 / F ADM Date: 05/11/22 [employer] Other XR wrist LT min 3V* Loc: [facility] Room: Type: [facility] [employer] Other XR wrist LT min 3V* Attending Dr: Dee Buchanan MD [employer] Other XR wrist LT min 3V* Copies to: Dee Buchanan MD [employer] Other XR wrist LT min 3V* Ordering Provider: Dee Buchanan MD [employer] Other XR wrist LT min 3V* Date of Service: 05/11/22 [employer] Other XR wrist LT min 3V* XR/XR wrist LT min 3V*: PAIN [employer] Other XR wrist LT min 3V* LEFT WRIST - 4 views [employer] Other XR wrist LT min 3V* CLINICAL HISTORY: Ganglion cyst posterior aspect at the level of the carpals. [employer] Other XR wrist LT min 3V* COMPARISON: None [employer] Other XR wrist LT min 3V* FINDINGS: [employer] Other XR wrist LT min 3V* No focal soft tissue abnormality is noted. No acute bony process is seen. Carpal bones appear [employer] Other XR wrist LT min 3V* unremarkable. [employer] Other XR wrist LT min 3V* XR/XR wrist LT min 3V* [employer] Other XR wrist LT min 3V* IMPRESSION: [employer] Other XR wrist LT min 3V* NO ACUTE BONY PROCESS. [employer] Other XR wrist LT min 3V* Impression dictated by: Tan Travis Jr., DJuanisOJuanis05/11/2022 12:18 PM [employer] Other XR wrist LT min 3V* Dictation Location: [place] [address] [employer] Other XR wrist LT min 3V* Transcribed By: JOSE ALEJANDRO 05/11/22 1218 [employer] Other XR wrist LT min 3V* Dictated By: Tan Travis Jr, DO 05/11/22 1217 [employer] Other XR wrist LT min 3V* Signed By: [employer] Other XR wrist LT min 3V* 05/11/22 1215 [employer] Other PAP ACOG PANEL 2: 21 to 29on 08-15-2021 . . [facility] Comment on above: Result Comment: Perf ormed at: BA Performed By: #### [id number] #### [facility] [address] [place] [address] Dr. Alek Fu Age Gdln ACOG Testing [facility] Comment on above: Performed By: #### [id number] #### [facility] [address] [place] [address] Dr. Alek Fu DIAGNOSIS: Comment [facility] Comment on above: Result Comment: NEGA TIVE FOR INTRAEPITHELIAL LESION OR MALIGNANCY. Performed at: BA Performed By: #### [id number] #### [facility] [address] [place] [address] Dr. Alek Fu Methodology: Comment [facility] Comment on above: Result Comment: This liquid based ThinPrep(R) pap test was screened with the use of an image guided system. Performed at: WB Performed By: #### [id number] #### [facility] [address] [place] [address] Dr. Alek Fu Note: Comment [facility] Comment on above: Result Comment: The Pap smear is a screening test designed to aid in the detection of premalignant and malignant conditions of the uterine cervix. It is not a diagnostic procedure and should not be used as the sole means of detecting cervical cancer. Both false-positive and false-negative reports do occur. . Performed at: WB Performed By: #### [id number] #### [facility] [address] [place] [address] Dr. Alek Fu Performed by: Comment [facility] Comment on above: Result Comment: Elen Carrillo, Bottle Washer Machine (ASCP) Performed at: BA Performed By: #### [id number] #### [facility] [address] [place] [address] Dr. Alek Fu Reflex Criteria: Comment Normal [facility] Comment on above: Result Comment: The HPV DNA reflex criteria were not met with this specimen result therefore, no HPV testing was performed. . Performed at: BA Performed By: #### [id number] #### [facility] [address] [place] [address] Dr. Alek Fu Specimen adequacy: Comment Normal [facility] Comment on above: Result Comment: Sati sfactory for evaluation. Endocervical and/or squamous metaplastic cells (endocervical component) are present. Performed at: BA Performed By: #### [id number] #### [facility] [address] [place] [address] Dr. Alek Fu XR KNEE SABRINA 4V [...] by: ZURI PHOENIX Date: 2021-07-17 17:09 Normal [facility] CBC AUTO DIFFon 12-08-2020 BASO # 0.0 103/ul Normal 0.0-0.1 [facility] Comment on above: Performed By: #### C BC #### [facility] [address] [place] [address] Dr. Alek Fu Basophils/100 WBC (Bld) 0.2 % Normal 0.2-2.0 [facility] Comment on above: Performed By: #### C BC #### [facility] [address] [place] [address] Dr. Alek Fu EO # 0.0 103/ul Normal 0.0-0.7 [facility] Comment on above: Performed By: #### C BC #### [facility] [address] [place] [address] Dr. Alek Fu Eosinophils/100 WBC (Bld) 0.6 % Critically low 0.9-7.0 [facility] Comment on above: Performed By: #### C BC #### [facility] [address] [place] [address] Dr. Alek Fu Erythrocyte distribution width (RBC) [Ratio] 12.4 % Normal 11.0-15.0 [facility] Comment on above: Performed By: #### C BC #### [facility] [address] [place] [address] Dr. Alek Fu Hematocrit (Bld) [Volume fraction] 44.3 % Normal 36.0-48.0 [facility] Comment on above: Performed By: #### C BC #### [facility] [address] [place] [address] Dr. Alek Fu Hemoglobin (Bld) [Mass/Vol] 15.4 g/dL Normal 12.0-16.0 [facility] Comment on above: Performed By: #### C BC #### [facility] [address] [place] [address] Dr. Alek Fu IG # 0.04 10e3/ul Critically high 0.00-0.03 [facility] Comment on above: Performed By: #### C BC #### [facility] [address] [place] [address] Dr. Alek Fu IG % 0.6 % Critically high 0.0-0.5 [facility] Comment on above: Performed By: #### C BC #### [facility] [address] [place] [address] Dr. Alek Fu LYMPH # 3.2 103/ul Normal 1.2-3.8 [facility] Comment on above: Performed By: #### C BC #### [facility] [address] [place] [address] Dr. Alek Fu Lymphocytes/100 WBC (Bld) 50.2 % Normal 20.5-60.0 [facility] Comment on above: Performed By: #### C BC #### [facility] [address] [place] [address] Dr. Alek Fu MANUAL DIFF REQ NO Normal [facility] Comment on above: Performed By: #### C BC #### [facility] [address] [place] [address] Dr. Alek Fu MCH (RBC) [Entitic mass] 28.7 pg Normal 26.7-34.0 [facility] Comment on above: Performed By: #### C BC #### [facility] [address] [place] [address] Dr. Alek Fu MCHC (RBC) [Mass/Vol] 34.8 g/dL Normal 29.9-35.2 [facility] Comment on above: Performed By: #### C BC #### [facility] [address] [place] [address] Dr. Alek Fu MCV (RBC) [Entitic vol] 82.5 fL Normal 81.0-99.0 [facility] Comment on above: Performed By: #### C BC #### [facility] [address] [place] [address] Dr. Alek Fu MONO # 0.6 103/ul Normal 0.3-0.8 [facility] Comment on above: Performed By: #### C BC #### [facility] [address] [place] [address] Dr. Alek Fu Monocytes/100 WBC (Bld) 10.0 % Normal 1.7-12.0 [facility] Comment on above: Performed By: #### C BC #### [facility] [address] [place] [address] Dr. Alek Fu NEUT # 2.4 103/ul Normal 1.4-6.5 [facility] Comment on above: Performed By: #### C BC #### [facility] [address] [place] [address] Dr. Alek Fu Neutrophils/100 WBC (Bld) 38.4 % Critically low 43.0-75.0 [facility] Comment on above: Performed By: #### C BC #### [facility] [address] [place] [address] Dr. Alek Fu Platelet mean volume (Bld) [Entitic vol] 9.9 fL Normal 9.5-13.5 [facility] Comment on above: Performed By: #### C BC #### [facility] [address] [place] [address] Dr. Alek Fu PLT 206 103/ul Normal 150-450 [facility] Comment on above: Performed By: #### C BC #### [facility] [address] [place] [address] Dr. Alek Fu RBC 5.37 106/ul Normal 4.20-5.40 [facility] Comment on above: Performed By: #### C BC #### [facility] [address] [place] [address] Dr. Alek Fu WBC 6.3 103/ul Normal 4.0-11.0 [facility] Comment on above: Performed By: #### C BC #### [facility] [address] [place] [address] Dr. Alek Fu ER URINE PROFILEon 1 Bilirubin Ql (U) Negative Normal NEGATIVE [facility] Comment on above: Performed By: #### E RUR #### [facility] [address] [place] [address] Dr. Alek Fu Clarity (U) CLEAR Normal CLEAR [facility] Comment on above: Performed By: #### E RUR #### [facility] [address] [place] [address] Dr. Alek Fu Color (U) YELLOW Normal YELLOW [facility] Comment on above: Performed By: #### E RUR #### [facility] [address] [place] [address] Dr. Alek Fu ERUAHD A micrscopic examination will be performed if indicated. Normal [facility] Comment on above: Performed By: #### E RUR #### [facility] [address] [place] [address] Dr. Alek Fu Glucose Ql (U) Negative Normal NEGATIVE [facility] Comment on above: Performed By: #### E RUR #### [facility] [address] [place] [address] Dr. Alek Fu Hemoglobin Ql (U) TRACE-INTACT Abnormal NEGATIVE [facility] Comment on above: Performed By: #### E RUR #### [facility] [address] [place] [address] Dr. Alek Fu Ketones Ql (U) TRACE Abnormal NEGATIVE [facility] Comment on above: Performed By: #### E RUR #### [facility] [address] [place] [address] Dr. Alek Fu LEUKOCYTES Negative Normal NEGATIVE [facility] Comment on above: Performed By: #### E RUR #### [facility] [address] [place] [address] Dr. Alek Fu Nitrite Ql (U) Negative Normal NEGATIVE [facility] Comment on above: Performed By: #### E RUR #### [facility] [facility] [address] [place] [address] Dr. Alek Fu pH (U) 6.0 [pH] Normal 5-9 [facility] Comment on above: Performed By: #### E RUR #### [facility] [address] [place] [address] Dr. Alek Fu SPEC GRAVITY 1.015 Normal 1.005-<=1.025 [facility] Comment on above: Performed By: #### E RUR #### [facility] [address] [place] [address] Dr. Alek Fu UA PROTEIN Negative Normal NEGATIVE/ TRACE [facility] Comment on above: Performed By: #### E RUR #### [facility] [address] [place] [address] Dr. Alek Fu UR MICRO IND NOT INDICATED Normal [facility] Comment on above: Performed By: #### E RUR #### [facility] [address] [place] [address] Dr. Alek Fu Urobilinogen Qn (U) 0.2 {Roya'U}/dL Normal 0.2 - 1.0 [facility] Comment on above: Performed By: #### E RUR #### [facility] [address] [address] [address] Alek Fu URon 12-08-2020 , QUAL Negative Normal NEGATIVE [facility] Comment on above: Performed By: #### P REGU #### [facility] [address] [place] [address] Dr. Alek Fu PROF CHEM 8 (BAS METB)on Anion gap [Moles/Vol] 13.0 mmol/L Normal [facility] Comment on above: Performed By: #### B MP #### [facility] [address] [place] [address] Dr. Alek Fu Calcium [Mass/Vol] 9.0 mg/dL Normal 8.4-10.2 [facility] Comment on above: Performed By: #### B MP #### [facility] [address] [place] [address] Dr. Alek Fu Chloride [Moles/Vol] 103 mmol/L Normal 98-107 [facility] Comment on above: Performed By: #### B MP #### [facility] [address] [place] [address] Dr. Alek Fu CO2 [Moles/Vol] 25.0 mmol/L Normal 22.0-30.0 [facility] Comment on above: Performed By: #### B MP #### [facility] [address] [place] [address] Dr. Alek Fu Creatinine [Mass/Vol] 0.96 mg/dL Normal 0.52-1.04 [facility] Comment on above: Performed By: #### B MP #### [facility] [address] [place] [address] Dr. Alek uF EGFR-AF CONGOLESE >60 Normal >=[address] [facility] Comment on above: Performed By: #### B MP #### [facility] [address] [place] [address] Dr. Alek Fu EGFR-NON AF CONGOLESE >60 Normal >=60 [facility] Comment on above: Performed By: #### B MP #### [facility] [address] [address] [address] Alek Fu Glucose [Mass/Vol] 99 mg/dL Normal 74-106 [facility] Comment on above: Performed By: #### B MP #### [facility] [address] [id number] [address] Alek Fu Potassium [Moles/Vol] 3.0 mmol/L Critically low 3.4-5.0 [facility] Comment on above: Performed By: #### B MP #### [facility] [address] [address] [address] Alek Fu Sodium [Moles/Vol] 138 mmol/L Normal 137-145 [facility] Comment on above: Performed By: #### B MP #### [facility] [address] [address] [address] Alek Fu Urea nitrogen [Mass/Vol] 11.0 mg/dL Normal 7.0-17.0 [facility] Comment on above: Performed By: #### B MP #### [facility] [address] [address] [address] Alek Fu Urea nitrogen/Creatinin e [Mass ratio] 11.5 mg/mg Normal [facility] Comment on above: Performed By: #### B MP #### [facility] [address] [address] [address] Alek Fu Covid-19 [facility]on 11-19 SARS-CoV-2 (COVID-19) RNA SANTANA+probe Ql (Unsp spec) Detected Critically abnormal NOT DETECTED [facility] Comment on above: Result Comment: This test is not yet approved or cleared by the [place] FDA. When there are no FDA-approved or cleared tests available, and other criteria are met, FDA can make tests available under an emergency access mechanism called an Emergency Use Authorization (EUA). The EUA for this test is supported by the [place] of Health and Human Service's (HHS's) declaration [...] used). Performed By: #### C TB #### [facility] [address] [place] [address] Dr. Alek Fu Vital Signs Date Time Vital Sign Value Performing Clinician Shashai anthony 03-19-2024 10:38-0500 Body mass index (BMI) [Ratio] 37.68 kg/m2 Amanda Tucson PA Work Phone: [facility] 03-19-2024 10:38-0500 Body weight 93.44 kg Amanda Tucson PA Work Phone: [facility] 03-19-2024 10:38-0500 Diastolic blood pressure 76 mm[Hg] Amanda Tucson PA Work Phone: [facility] 03-19-2024 10:38-0500 Systolic blood pressure 122 mm[Hg] Amanda Tucson PA Work Phone: [facility] 03-05-2024 09:47-0500 Body mass index (BMI) [Ratio] 37.93 kg/m2 Amanda Tucson PA Work Phone: [facility] 03-05-2024 09:47-0500 Body weight 94.08 kg Amanda Tucson PA Work Phone: [facility] 03-05-2024 09:47-0500 Diastolic blood pressure 74 mm[Hg] Amanda Tucson PA Work Phone: [facility] 03-05-2024 09:47-0500 Systolic blood pressure 110 mm[Hg] Amanda Juan PA Work Phone: [facility] 03-01-2024 11:46-0500 Body mass index (BMI) [Ratio] 37.57 kg/m2 Amanda Tucson PA Work Phone: [facility] 03-01-2024 11:46-0500 Body weight 93.17 kg Amanda Tucson PA Work Phone: [facility] 03-01-2024 11:46-0500 Diastolic blood pressure 90 mm[Hg] Amanda Juan PA Work Phone: [facility] 03-01-2024 11:46-0500 Systolic blood pressure 130 mm[Hg] Amanda Tucson PA Work Phone: [facility] 02-20-2024 10:07-0500 Body mass index (BMI) [Ratio] 37.68 kg/m2 Anai Jennyfer DO Work Phone: [facility] 02-20-2024 10:07-0500 Body weight 93.44 kg Anai Jennyfer DO Work Phone: [facility] 02-20-2024 10:07-0500 Diastolic blood pressure 80 mm[Hg] Anai Jennyfer DO Work Phone: [facility] 02-20-2024 10:07-0500 Systolic blood pressure 122 mm[Hg] Anai Jennyfer DO Work Phone: [facility] 01-17-2024 10:15-0400 Body mass index (BMI) [Ratio] 36 kg/m2 Amanda Juan PA Work Phone: [facility] 01-17-2024 10:15-0400 Body weight 89.27 kg Amanda Juan PA Work Phone: [facility] 01-17-2024 10:15-0400 Diastolic blood pressure 70 mm[Hg] Amanda Juan PA Work Phone: [facility] 01-17-2024 10:15-0400 Systolic blood pressure 122 mm[Hg] Amanda Juan PA Work Phone: [facility] 12-20-2023 09:58-0400 Body mass index (BMI) [Ratio] 34.93 kg/m2 Amanda Juan PA Work Phone: [facility] 12-20-2023 09:58-0400 Body weight 86.64 kg Amanda Tucson PA Work Phone: [facility] 12-20-2023 09:58-0400 Diastolic blood pressure 76 mm[Hg] Amanda Tucson PA Work Phone: [facility] 12-20-2023 09:58-0400 Systolic blood pressure 124 mm[Hg] Amanda Martinez PA Work Phone: [facility] 11-23-2023 09:47-0400 Body height 157.5 cm Lorene Hemmer PA Work Phone: [facility] 11-23-2023 09:47-0400 Body mass index (BMI) [Ratio] 34.39 kg/m2 Lorene Hemmer PA Work Phone: [facility] 11-23-2023 09:47-0400 Body weight 85.28 kg Lorene Hemmer PA Work Phone: [facility] 11-23-2023 09:47-0400 Diastolic blood pressure 86 mm[Hg] Lorene Hemmer PA Work Phone: [facility] 11-23-2023 09:47-0400 Heart rate 81 /min Lorene Hemmer PA Work Phone: [facility] 11-23-2023 09:47-0400 Respiratory rate 16 /min Lorene Hemmer PA Work Phone: [facility] 11-23-2023 09:47-0400 SaO2% (BldA) [Mass fraction] 98 % Lorene Hemmer PA Work Phone: [facility] 11-23-2023 09:47-0400 Systolic blood pressure 124 mm[Hg] Lorene Hemmer PA Work Phone: [facility] 11-22-2023 09:29-0400 Body mass index (BMI) [Ratio] 34.41 kg/m2 Anai Jennyfer DO Work Phone: [facility] 11-22-2023 09:29-0400 Body weight 85.33 kg Anai Jennyfer DO Work Phone: [facility] 11-22-2023 09:29-0400 Diastolic blood pressure 74 mm[Hg] Anai Jennyfer DO Work Phone: [facility] 11-22-2023 09:29-0400 Systolic blood pressure 122 mm[Hg] Anai Jennyfer DO Work Phone: [facility] Encounters Encounter Date Encounter Type Care Provider Facility Start: 04-03-2024 End: 04-03-2024 Bamboo flowsheet Anai Jennyfer DO Work Phone: [facility] Start: 04-03-2024 End: 04-03-2024 Bamboo flowsheet Anai Jennyfer DO Work Phone: [facility] Start: 03-19-2024 End: 03-19-2024 Bamboo flowsheet Amanda ROMAN Work Phone: [facility] Start: 03-19-2024 End: 03-19-2024 Bamboo flowsheet Amanda ROMAN Work Phone: [facility] Start: 03-19-2024 End: 03-19-2024 flow sheet Amanda ROMAN Work Phone: [facility] Comment on above: Third trimester preg gregor; 33 weeks gestation of Start: 03-19-2024 End: 03-19-2024 ambulatory AMANDA MARTINEZ Not Available Start: 03-05-2024 End: 03-05-2024 Bamboo flowsheet Amanda Martinez PA Work Phone: [facility] Start: 03-05-2024 End: 03-05-2024 Bamboo flowsheet Amanda ROMAN Work Phone: [facility] Start: 03-05-2024 End: 03-05-2024 flow sheet Amanda ROMAN Work Phone: [facility] [...] PA Work Phone: [facility] Start: 12-20-2023 End: 12-20-2023 Bamboo flowsheet Amanda Juan PA Work Phone: [facility] Start: 12-20-2023 [...] Start: 11-23-2023 End: 11-23-2023 Bamboo flowsheet Lorene Plasencia PA Work Phone: [facility] Start: 11-23-2023 [...] 11-22-2023 End: 11-22-2023 Patient encounter procedure Anai Jennyfer DO Work Phone: [facility] Start: 11-22-2023 End: 11-22-2023 Periodic preventive med est patient 18-39 yrs Anai Jennyfer DO Work Phone: [facility] Comment on above: Screening, , for anatomic survey; Well woman exam with routine gynecological exam; Second trimester ; Vaginal discharge; STD exposure; Mood disorder (CMS/HCC) Start: 10-24-2023 End: 10-24-2023 ambulatory ANAI JENNYFER [...] Start: 05-11-2022 End: 05-11-2022 ambulatory Dee Buchanan Facility:[facility] Start: 05-11-2022 End: 05-11-2022 ambulatory MD Dee Buchanan Work Phone: [facility] Work Phone: Start: 05-11-2022 End: 05-11-2022 Patient encounter procedure MD Dee Buchanan Work Phone: [facility] Start: 08-10-2021 End: 08-10-2021 ambulatory [...] AFP, SERUM, OPEN SPI NA BIFIDA Anai Ansarizio DO Work Phone: Start: 11-22-2023 IGP,APTIMA HPV,AGE GDLN Anai Ansarizio DO Work Phone: Start: 11-22-2023 Urnls dip stick/tabl et rgnt non-auto w/o micrscp Anai Jennyfer DO Work Phone: Start: 05-11-2022 Plain X-ray of left wrist MD Dee Buchanan Work Phone: Plan of Treatment Date Care Activity Detail Author Start: 04-03-2024 End: 04-03-2024 Patient encounter procedure 04/03/2024 10:30 AM EST Routine [facility] [address] [address] JennyferAnai, DO [address] [place], [place] [id number] Arrived [facility] Comment on above: Arrived Start: 03-19-2024 End: 03-19-2024 Patient encounter procedure [facility] Comment on above: Arrived Start: 03-05-2024 End: 03-05-2024 Patient encounter procedure [facility] Comment on above: Arrived Start: 03-05-2024 End: 03-05-2024 Professional / ancillary services management 03/05/2024 9:00 AM EST Ancillary Procedure [facility] [address] [place] [id number] [facility] Start: 03-01-2024 End: 03-01-2025 Alanine aminotransferase [Enzymatic activity/volume] in Serum or Plasma ALT Lab Routine induced hypertension, antepartum Expected: 03/01/2024 (Approximate), Expires: 03/01/2025 [facility] Comment on above: Expected: 03/01/2024 (Approximate), Expires: 03/01/2025 Start: 03-01-2024 End: 03-01-2025 Aspartate aminotransferase [Enzymatic activity/volume] in Serum or Plasma AST Lab Routine induced hypertension, antepartum Expected: 03/01/2024 (Approximate), Expires: 03/01/2025 [facility] Comment on above: Expected: 03/01/2024 (Approximate), Expires: 03/01/2025 Start: 03-01-2024 End: 03-01-2025 CBC W Auto Differential panel - Blood CBC and differential Lab Routine induced hypertension, antepartum Expected: 03/01/2024 (Approximate), Expires: 03/01/2025 [facility] Comment on above: Expected: 03/01/2024 (Approximate), Expires: 03/01/2025 Start: 03-01-2024 End: 03-01-2025 Creatinine [Mass/volume] in Serum or Plasma Creatinine Lab Routine induced hypertension, antepartum Expected: 03/01/2024 (Approximate), Expires: 03/01/2025 [facility] Work Phone: Comment on above: Expected: 03/01/2024 (Approximate), Expires: 03/01/2025 Start: 03-01-2024 End: 03-01-2025 Lactate dehydrogenase [Enzymatic activity/volume] in Serum or Plasma by Lactate to pyruvate reaction Lactate dehydrogenase Lab Routine induced hypertension, antepartum Expected: 03/01/2024, Expires: 03/01/2025 [facility] Comment on above: Expected: 03/01/2024 , Expires: 03/01/2025 Start: 03-01-2024 End: 03-01-2025 Protein, urine, 24 hour Protein, urine, 24 hour Lab Routine induced hypertension, antepartum Expected: 03/01/2024 (Approximate), Expires: 03/01/2025 [facility] Comment on above: Expected: 03/01/2024 (Approximate), Expires: 03/01/2025 Start: 03-01-2024 End: 03-01-2025 Pt and ptt Pt and ptt Lab Routine induced hypertension, antepartum Expected: 03/01/2024, Expires: 03/01/2025 [facility] Comment on above: Expected: 03/01/2024 , Expires: 03/01/2025 Start: 03-01-2024 End: 12-12-2025 Urate [Mass/volume] in Serum or Plasma Uric acid Lab Routine induced hypertension, antepartum Expected: 03/01/2024 (Approximate), Expires: 03/01/2025 [facility] Comment on above: Expected: 03/01/2024 (Approximate), Expires: 03/01/2025 Start: 03-01-2024 End: 03-01-2025 Urea nitrogen [Mass/volume] in Serum or Plasma BUN Lab Routine induced hypertension, antepartum Expected: 03/01/2024, Expires: 03/01/2025 [facility] Comment on above: Expected: 03/01/2024 , Expires: 03/01/2025 Start: 03-01-2024 End: 03-01-2025 US biophysical profile w non stress test US biophysical profile w non stress test Imaging Routine Hypertension affecting in third trimester Lightheadedness Dizziness Expected: 03/01/2024 (Approximate), Expires: 03/01/2025 [facility] Comment on above: Expected: 03/01/2024 (Approximate), Expires: 03/01/2025 Start: 02-20-2024 End: 02-19-2025 US for US OB SCAN FOR GROWTH Imaging Routine Excessive growth affecting management of , antepartum, single or unspecified fetus Expected: 02/20/2024 (Approximate), Expires: 02/19/2025 [facility] Work Phone: Comment on above: Expected: 02/20/2024 (Approximate), Expires: 02/19/2025 Start: 02-20-2024 End: 02-20-2024 Patient encounter procedure [facility] Comment on above: Arrived Start: 01-20-2024 End: 12-19-2024 US for US OB INCOMPLETE ANATOMY W US OB TRANSVAGINAL Imaging Routine Encounter for follow-up ultrasound of anatomy Expected: 01/20/2024 (Approximate), Expires: 12/19/2024 [facility] Work Phone: Comment on above: Expected: 01/20/2024 (Approximate), Expires: 12/19/2024 Start: 01-17-2024 End: 01-16-2025 CBC panel - Blood by Automated count CBC Lab Routine Diabetes mellitus screening Expected: 01/17/2024 (Approximate), Expires: 01/16/2025 [facility] Work Phone: Comment on above: [...] Ancillary Procedure [facility] [address] [place] [id number] [facility] Start: 12-20-2023 End: 12-20-2023 Patient encounter procedure [facility] Comment on above: Arrived Start: 12-14-2023 End: 12-14-2023 Professional / ancillary services management 12/14/2023 9:00 AM EDT Ancillary Procedure [facility] [address] [place] [id number] [facility] Start: 11-22-2023 End: 05-21-2024 Alpha fetoprotein, maternal Alpha fetoprotein, maternal Lab Routine Second trimester Expected: 11/22/2023 (Approximate), Expires: 05/21/2024 [facility] Comment on above: Expected: 11/22/2023 (Approximate), Expires: 05/21/2024 Start: 11-22-2023 End: 11-21-2024 US for US OB ANATOMY SINGLE W US OB CERVICAL LENGTH Imaging Routine Screening, , for anatomic survey Expected: 11/22/2023 (Approximate), Expires: 11/21/2024 [facility] Comment on above: Expected: 11/22/2023 (Approximate), Expires: 11/21/2024 Start: 11-20-2023 Influenza vaccination Influenza Vacc ine (#1) [facility] CHLAMYDIA TRACHOMATI S (GENITO/STI) CHLAMYDIA TRACHOMATIS (GENITO/STI) Lab Routine STD exposure Ordered: 11/22/2023 [facility] Comment on above: Ordered: 11/22/2023 Cytology Cervical or vaginal smear or scraping study Pap Smear Pathology and Cytology Routine Well woman exam with routine gynecological exam Ordered: 11/22/2023 [facility] Comment on above: Ordered: 11/22/2023 Neisseria gonorrhoea e DNA [Presence] in Unspecified specimen by SANTANA with probe detection Neisseria gonorrhea DNA probe, direct Lab Routine STD exposure Ordered: 11/22/2023 [facility] Comment on above: Ordered: 11/22/2023 SURESWAB(R) ADVANCED VAGINITIS PLUS, TMA SURESWAB(R) ADVANCED VAGINITIS PLUS, TMA Pathology and Cytology Routine Vaginal discharge Ordered: 11/22/2023 [facility] Work Phone: Comment on above: Ordered: 11/22/2023 Immunizations Immunization Date Immunization Notes Care Provider [facility] 12-09-2019 diphtheria, tetanus toxoids and pertussis vaccine Lorene ROMAN Work Phone: [facility] 12-09-2019 measles, mumps and rubella virus vaccine Lorene ROMAN Work Phone: [facility] 05-30-2000 diphtheria, tetanus toxoids and acellular pertussis vaccine, unspecified formulation Lorene ROMAN Work Phone: [facility] Work Phone: 05-30-2000 measles, mumps and rubella virus vaccine Lorene Hemstan ROMAN Work Phone: [facility] 05-30-2000 poliovirus vaccine, inactivated Lorene ROMAN Work Phone: [facility] 03-30-2000 influenza, seasonal, injectable Lorene ROMAN Work Phone: [facility] 03-30-2000 influenza virus vaccine, unspecified formulation Lorene ROMAN Work Phone: [facility] 09-12-1998 haemophilus influenz ae type b vaccine, conjugate unspecified formulation Lorene ROMAN Work Phone: [facility] 11-28-1996 diphtheria, tetanus toxoids and acellular pertussis vaccine, unspecified formulation Lorene Hemmer PA Work Phone: [facility] 11-28-1996 haemophilus influenz ae type b vaccine, conjugate unspecified formulation Lorene Hemmer PA Work Phone: [facility] 11-28-1996 measles, mumps and rubella virus vaccine Lorene Hemmer PA Work Phone: [facility] 10-27-1996 trivalent poliovirus vaccine, live, oral Lorene Hemmer PA Work Phone: [facility] 01-31-1996 DTP-Haemophilus influenzae type b conjugate vaccine Lorene Hemmer PA Work Phone: [facility] 01-31-1996 hepatitis B vaccine, pediatric or pediatric/adolescent dosage Lorene Hemmer PA Work Phone: [facility] 01-31-1996 trivalent poliovirus vaccine, live, oral Lorene Hemmer PA Work Phone: [facility] 1995 DTP-Haemophilus influenzae type b conjugate vaccine Lorene Hemmer PA Work Phone: [facility] 1995 trivalent poliovirus vaccine, live, oral Lorene Hemmer PA Work Phone: [facility] 1995 DTP-Haemophilus influenzae type b conjugate vaccine Lorene Hemmer PA Work Phone: [facility] 1995 hepatitis B vaccine, pediatric or pediatric/adolescent dosage Lorene Hemmer PA Work Phone: [facility] 1995 haemophilus influenz ae type b vaccine, conjugate unspecified formulation Lorene Hemmer PA Work Phone: [facility] 1995 hepatitis B vaccine, pediatric or pediatric/adolescent dosage Lorene Hemmer PA Work Phone: [facility] Payers Date Payer Category Payer [facility] (unspecified) [id number] 2023 Private Health Insurance [id number] 2022 Private Health Insurance [id number] 2022 Self-pay 2022 Unknown [id number] 1995 Unknown [id number] 2.16.84 [id number] 1995 Unknown [id number] 2.16.84 [id number] 1995 Unknown [id number] 2.16.84 0.1.394596.3.579.2.593 1995 Unknown [id number] 2.16.84 0.1.930969.3.579.2.593 1995 Unknown [id number] [id number] 1995 Unknown [id number] 2.16.840.1.955472.3.579.2.1258 1995 Unknown [id number] 2.16.840.1.291149.3.579.2.1258 1995 Unknown [id number] 2.16.840.1.032371.3.579.2.9 1995 Unknown [id number] 2.16.840.1.521324.3.579.2.1258 1995 Unknown [id number] 2.16.840.1.064924.3.579.2.125 1995 Unknown [id number] 2.16.840.1.920942.3.579.2.1258 1995 Unknown [id number] 2.16.840.1.150797.3.579.2.1258 1995 Unknown [id number] 2.16.840.1.302279.3.579.2.1258 1995 Unknown [id number] 2.16.840.1.077921.3.579.2.1259 1995 Unknown [id number] 2.16.840.1.448519.3.579.2.9 1995 Unknown [id number] 2.16.840.1.685889.3.579.2.9 1995 Unknown [id number] 2.16.840.1.273999.3.579.2.1258 1995 Unknown [id number] 2.16.840.1.933359.3.579.2.1258 1995 Unknown [id number] 2.16.840 .1.019898.3.579.2.1259 1959 Unknown [id number] 1959 Unknown [id number] 1959 Unknown [id number] Unknown [id number] [id number] Social History Date Type Detail Facility Tobacco smoking stat us INIS Unknown if ever smoked [facility] Work Phone: Start: 1995 Sex Assigned At Female [facility] Start: 09-08-2023 End: 11-23-2023 Sex Assigned At [facility] Start: 11-24-2022 Tobacco smoking status INIS Never smoked tobacco [facility] Start: 11-24-2022 [...] to any clubs or organizations such as baptist groups, unions, fraternal or athletic groups, or [...] Gender identity Identifies as female gender (finding) [facility] Start: 10-18-2022 Sexual orientation Heterosexual (finding) [facility] Start: 10-24-2023 End: 11-22-2023 Alcoholic beverage intake Current drinker of alcohol (finding) [facility] Clinical Notes 05-11-2022 to 03-19-2024 ABEL [...] of: ABEL Carroll documented in this encounter [facility] 03-05-2024 History of Presen t illness Narrative [...] of: ABEL Carroll documented in this encounter [facility] 03-01-2024 History of Presen t illness Narrative [...] of: ABEL Carroll documented in this encounter [facility] 02-20-2024 History of Presen t illness Narrative [...] 2 (SARS-CoV-2) detected 08/18/2022 Generalized anxiety disorder (CMS/[facility]) 03/23/2023 Resolved Ambulatory Problems Diagnosis Date Noted Allergic rhinitis 08/18/2022 Sinusitis 08/18/2022 Past Medical History: Diagnosis Date Allergies Central auditory processing disorder Chronic ear infection Depression ([facility]) ETD (eustachian tube dysfunction) Miscarriage TMJ (dislocation of temporomandibular joint) HISTORY PAST MEDICAL HISTORY SOCIAL HISTORY Past Medical History: Diagnosis Date Allergies Central auditory processing disorder Chronic ear infection Depression ([facility]) ETD [...] nursing note reviewed. Exam conducted with a sous chef present. Vitals: Estimated body mass index is [...] Anai Burger DO documented in this encounter [facility] 01-17-2024 History of Presen t illness Narrative [...] nursing note reviewed. Exam conducted with a sous chef present. Vitals: Estimated body mass index is [...] of: ABEL Carroll documented in this encounter [facility] 12-20-2023 History of Presen t illness Narrative [...] of: ABEL Carroll documented in this encounter [facility] 11-25-2023 Telephone encount er Note Understood. [facility] 11-25-2023 Miscellaneous Notes Formattin g of this note might be different from the original. Understood. Nazia called stating her ob just wants her on Effexor instead of buspirone so that's what she'll be on documented in this encounter [facility] 11-25-2023 Telephone encount er Note Nazia called stating her ob just wants her on Effexor instead of buspirone so that's what she'll be on [facility] 11-23-2023 History of Presen t illness Narrative [...] Medication Follow Up. documented in this encounter [facility] 11-22-2023 History of Presen t illness Narrative [...] 2 (SARS-CoV-2) detected 08/18/2022 Generalized anxiety disorder ([facility]/HCC) 03/23/2023 Resolved Ambulatory Problems Diagnosis Date Noted Allergic rhinitis 08/18/2022 Sinusitis 08/18/2022 Past Medical History: Diagnosis Date Allergies Central auditory processing disorder Chronic ear infection Depression (CMS/HCC) ETD (eustachian tube dysfunction) Miscarriage TMJ (dislocation of temporomandibular joint) HISTORY PAST MEDICAL HISTORY SOCIAL HISTORY Past Medical History: Diagnosis Date Allergies Central auditory processing disorder Chronic ear infection Depression (CMS/[facility]) ETD [...] nursing note reviewed. Exam conducted with a sous chef present. Vitals: Estimated body mass index is [...] Anai Burger DO documented in this encounter [facility] 05-11-2022 Evaluation note Encounter Date Diagnosis Assessment [...] Instructed patient to wear brace for activities. [employer] Other Evaluation noteNo assessment information available [facility] Work Phone: Evaluation note* Diagnosis [...] History learning disability Surgical History tymponostomy x7 [employer] Other Summary Purpose Family History No Family History Records FoundNo Family History Records FoundNo Family History Records Found Advance Directives No Advanced Directives Records FoundNo Advanced Directives Records FoundNo Advanced Directives Records Found Additional Source Comments INFORMATION SOURCE (unrecogn ized section and content) DATE CREATED AUTHOR 09/12/2021 [facility] DATE CREATED AUTHOR AUTHOR'S ORGANIZ ATION 05/21/2022 [facility] DATE CREATED AUTHOR AUTHOR'S ORGANIZ ATION 03/20/2024 [facility] Care Teams (unrecognized sec tion and content) Team Status: Inactive Member Role Status Dates Dee Buchanan MD Attending Provider Active Project Product Manager Relationship Specialty Start Date End Date Verito Lamb MD [address] [facility] [address] [place] [address] PCP - General Family Medicine 10/18/22 Project Product Manager Relationship Specialty Start Date End Date Verito Lamb MD [address] [facility] [address] [place] [address] PCP - General Family Medicine 10/18/22 Project Product Manager Relationship Specialty Start Date End Date Verito Lamb MD [address] [facility] [address] [place] [address] PCP - General Family Medicine 10/18/22 Project Product Manager Relationship Specialty Start Date End Date Verito Lamb MD [address] [facility] [address] [place] [address] PCP - General Family Medicine 10/18/22 Project Product Manager Relationship Specialty Start Date End Date Verito Lamb MD [address] [facility] [address] [place] [address] PCP - General [facility] Medicine 10/18/22 Project Product Manager Relationship Specialty Start Date End Date Verito Lamb MD [address] [facility] [address] [place] [address] PCP - General Family Medicine 10/18/22 Project Product Manager Relationship Specialty Start Date End Date Verito Lamb MD [address] [facility] [address] [place] [address] PCP - [facility] 10/18/22 Project Product Manager Relationship Specialty Start Date End Date Verito Lamb MD [address] [facility] [address] [place] [address] PCP - [facility] Medicine 10/18/22 Project Product Manager Relationship Specialty Start Date End Date Verito Lamb MD [address] [facility] [address] [place] [address] PCP - [facility] Medicine 10/18/22 Project Product Manager Relationship Specialty Start Date End Date Verito Lamb MD [address] [facility] [address] [place] [address] PCP - [facility] Medicine 10/18/22 Project Product Manager Relationship Specialty Start Date End Date Verito Lamb MD [address] [facility] [address] [place] [address] PCP - [facility] Medicine 10/18/22 Project Product Manager Relationship Specialty Start Date End Date Verito Lamb MD [address] [facility] [address] [place] [address] PCP - General Family Medicine 10/18/22 Project Product Manager Relationship Specialty Start Date End Date Verito Lamb MD [address] [id number] PCP - General Family Medicine 10/18/22 Goals [...] BE BASED ON THE PRIMARY CLINICAL RECORDS. [facility] [employer] [facility] provides no warranty or guarantee of the accuracy or completeness of information in this document.
== END 2024-04-03 19:41 | disposition home or self-care (01) ==
LOC: LAB 19:40
PROVIDERS: PCP Family Medicine; Visit Provider Obstetrics & Gynecology
DX: Z34.93 Encounter for supervision of normal pregnancy, unspecified, third trimester (principal)
CPT/HCPCS: 36415; 87081

== ENCOUNTER 2024-04-04 00:53 | Outpatient (OUT) | payer OTHER, SELFPAY ==
--- OUTSIDE RECORDS SUMMARY | 2024-04-04 00:59 | XMS_ITS | CCD ---
Author Organization [facility] Care Team Providers Care Manager Summer Name Role Phone JENNYFER, DR OSPINA Admitting [...] GRAY Attending Unavailable AMANDA MARTINEZ Attending Unavailable JENNYFERANIA OLIVA Attending Unavailable JENNYFREANAI OLIVA Attending Unavailable HEMLORENE MANDEL Attending Unavailable AMANDA MARTINEZ Attending Unavailable AMANDA MARTINEZ Attending Unavailable JENNYFERANAI OLIVA Attending Unavailable JUAN AMANDA Attending Unavailable JUAN AMANDA Attending Unavailable JUAN AMANDA Attending Unavailable Allergies Allergy Classification Reported Allergen(s) Allergy Type Date of Onset Reaction(s) Facility (1 source) Cephalexin Drug Allergy [facility] Repository (20 sources) ARIPiprazole Drug Allergy 3 [facility] Work Phone: (20 sources) cariprazine Drug Allergy 3 [facility] Healthcare (20 sources) Cephalexin Drug Allergy 3 Unknown [facility] Healthcare (20 sources) Propofol Drug Allergy 3 Unknown [facility] Healthcare (20 sources) Flavoring Agent Allergy to substance 3 Unknown [facility] Healthcare (20 sources) Mosquito (Diagnostic) Drug Allergy 3 Unknown [facility] Healthcare (1 source) Flavoring Agent (Non-Screening) Allergy to substance 3 Unknown [facility] Healthcare Medications Current Medications Medication Drug Class(es) [...] UA Negative Negative - 1999(110) ++++ mg/dL [facility] Interpretation and review of laboratory results Abnormal [facility] re Ketones, UA Negative Negative - 160(16) ++++ mg/dL [facility] Leukocytes, UA Trace Negative - 500+++ Virgie/mcL [facility] Nitrite, UA Negative Negative - Positive [facility] pH, UA 6 5 - 9 [facility] Protein, UA Positive Negative - 1999(20) ++++ mg/dL [facility] Comment on above: 30 Spec Grav, UA 1.03 1 - 1.03 [facility] Urobilinogen, UA 0.2 0.2 - 12 mg/dL [facility] Urinalysis macro (dipstick) panel (U)on 03-05-2024 Bilirubin, UA Negative Negative - (70) +++ mg/dL [facility] Blood, UA Negative Negative - 50 Neno/mcL [facility] Clarity, UA Clear [facility] re Color, UA Yellow [facility] Glucose, UA Negative Negative - 1999(110) ++++ mg/dL [facility] Interpretation and review of laboratory results [facility]normal [facility] Ketones, UA Negative Negative - 160(16) ++++ mg/dL [facility] Leukocytes, UA Positive Negative - 500+++ Virgie/mcL [facility] Comment on above: small Nitrite, UA Negative Negative - Positive [facility] pH, UA 6 5 - 9 [facility] Protein, UA Negative Negative - 1999(20) ++++ mg/dL [facility] Spec Grav, UA 1.015 1 - 1.03 [facility] Urobilinogen, UA 0.2 0.2 - 12 mg/dL [facility] CCF APTTon 03-02-2024 aPTT Coag (Bld) [Time] 23.9 s [facility] No Panel Informationon 03-02 [facility] Healthcar e SRMCOH PROTHROMBIN TIME INR W/O COUMon 03-02-2024 PT Coag (PPP) [Time] 9.9 s [facility] TBH INR 0.93 [facility] Health[facility] e Comment on above: DESIRED INR: 2.0-3.0 CONDITIONS NOT LISTED BELOW 2.5-3.5 FOR PROSTHETIC HEART VALVE REPLACEMENT 2.5-3.5 RECURRENT THROMBOSIS Urinalysis macro (dipstick) panel (U)on 03-01-2024 Bilirubin, UA Negative Negative - 4(70) +++ mg/dL [facility] Blood, UA Negative Negative - 50 Neno/mcL [facility] Clarity, UA Clear [facility] Color, UA Yellow [facility] e Glucose, UA Negative Negative - 1999(110) ++++ mg/dL [facility] Interpretation and review of laboratory results Abnormal [facility] re Ketones, UA Negative Negative - 160(16) ++++ mg/dL [facility] Leukocytes, UA Positive Negative - 500+++ Virgie/mcL [facility] Comment on above: small Nitrite, UA Negative Negative - Positive [facility] pH, UA 7 5 - 9 [facility] Protein, UA Trace Negative - 1999(20) ++++ mg/dL [facility] Spec Grav, UA 1.02 1 - 1.03 [facility] Urobilinogen, UA 0.2 0.2 - 12 mg/dL [facility] GLUCOSE 1 HOURon 01-25-2024 Glucose [Mass/Vol] 131 mg/dL High NINF - 13 0 mg/dL [facility] Interpretation and review of laboratory results Abnormal [facility] re [facility] Urinalysis macro (dipstick) panel (U)on 01-17-2024 Bilirubin, UA Negative Negative - 4(70) +++ mg/dL [facility] Blood, UA Negative Negative - 50 Neno/mcL [facility] Clarity, UA Clear [facility] Color, UA Yellow [facility] Glucose, UA Negative Negative - 1999(110) ++++ mg/dL [facility] Interpretation and review of laboratory results Abnormal [facility] re Ketones, UA Negative Negative - 160(16) ++++ mg/dL [facility] Leukocytes, UA Trace Negative - 500+++ Virgie/mcL [facility] Nitrite, UA Negative Negative - Positive [facility] pH, UA 6 5 - 9 [facility] Protein, UA Negative Negative - 1999(20) ++++ mg/dL [facility] Spec Grav, UA 1.02 1 - 1.03 [facility] Urobilinogen, UA 1.0 0.2 - 12 mg/dL [facility] Urinalysis macro (dipstick) panel (U)on 12-20-2023 Bilirubin, UA Negative Negative - 4(70) +++ mg/dL [facility] Blood, UA Negative Negative - 50 Neno/mcL [facility] Clarity, UA Clear [facility] re Color, UA Yellow [facility] Health[facility] e Glucose, UA Negative Negative - 1999(110) ++++ mg/dL [facility] Interpretation and review of laboratory results Abnormal [facility] Ketones, UA Negative Negative - 160(16) ++++ mg/dL [facility] Leukocytes, UA Trace Negative - 500+++ Virgie/mcL [facility] Nitrite, UA Negative Negative - Positive [facility] pH, UA 6.5 5 - 9 [facility] [employer] Protein, UA Negative Negative - 1999(20) ++++ mg/dL [facility] Spec Grav, UA 1.025 1 - 1.03 [facility] Urobilinogen, UA 0.2 0.2 - 12 mg/dL [facility] AFP, SERUM, OPEN SPINA BIFID Aon 12-11-2023 AFP MOM 0.79 . [facility] Healthcar e AFP VALUE 34.7 ng/mL . [facility] e COMMENT: Comment . [facility] Comment on above: Treva Gong , Ph.D., [facility] Director References: Available Upon Request. Multiples Of Median Cutoffs For AFP Elevations Banuelos 2.5 Black 2.8 IDD 2.0 Twins 4.5 Abbreviation Definitions IDD - Insulin Dep Diabetes OSBR - Open Spina Bifida Risk For further inquiries contact [employer] at [phone]. This test was developed and its performance characteristics determined by [employer]. It has not been cleared or approved by the Food and Drug Administration. Performed at: [facility] [address], [place] [id number] Reconciliation Specialist: Maira Jones [facility], Phone: [phone] GEST. AGE ON COLLECTION DATE 19.3 . weeks [facility] GESTAT. AGE BASED ON LMP . [facility] Comment on above: Recalculations are n ot recommended when gestational dating by LMP and ultrasound are within 10 days. INSULIN DEP DIABETES No . [facility] INTERPRETATION Comment . [facility] Comment on above: Interpretation: Scre en [...] Customer Services to discuss available options. The [employer] recommends amniocentesis be offered to women age 35 and older. [age] [facility] MULTIPLE GESTATION No . [facility] [place] [address] [place] [phone] . [facility] Rosa hurd RACE . [facility] Coup[employer] RESULTS Report . [facility] [employer] TEST RESULTS: Negative . [facility] WEIGHT 188 . lbs [facility] [employer] N N LMP [id number] N 1 Y 188 N N N N N White/ [facility] [employer] IGP,APTIMA HPV,AGE GDLNon AGE GDLN ACOG TESTING Note . [facility] Comment on above: TESTS RESULT FLAG UN ITS REF RANGE LAB Clinician Provided Cytology Information Source.............Cervix No. of containers..01 ThinPrep Vial Age Algo ACOG Madonna... FLAG LEGEND: L-Low Normal,H-High Normal,LL-Alert Low,HH-Alert High <-Panic Low,>-Panic High,A-Abnormal,AA-Critical Abnormal Performed at: 01 =G [facility] [place] [address] [place] [address] Tierra Morales MD, IGP, RFX APTIMA HPV ASCU Note . [facility] Comment on above: TESTS RESULT FLAG UN ITS REF RANGE LAB DIAGNOSIS: 02 NEGATIVE FOR INTRAEPITHELIAL LESION OR MALIGNANCY. Specimen adequacy: 02 Satisfactory for evaluation. No endocervical component is identified. Performed by: 02 Francesca Blanc, Penology Teacher ([facility]) . 02 Note: Note 02 The Pap [...] High,A-Abnormal,AA-Critical Abnormal Performed at: 02 WB [facility] [address] [address] Tierra Morales MD, Performed at: =G - [facility] [address] [id number] Reconciliation Specialist: Tierra Morales MD, Phone: [phone] Performed at: - [facility] [address] [id number] Reconciliation Specialist: Tierra Morales MD, Phone: [phone] SPATULA-ALONE CERVIX [facility] Urinalysis macro (dipstick) panel (U)on 11-22-2023 Bilirubin, UA Negative Negative - 4(70) +++ mg/dL [facility] Blood, UA Negative Negative - 50 Neno/mcL [facility] Clarity, UA Clear [facility] re Color, UA Yellow [facility] Glucose, UA Negative Negative - 1999(110) ++++ mg/dL [facility] Interpretation and review of laboratory results Normal [facility] Ketones, UA Negative Negative - 160(16) ++++ mg/dL [facility] Leukocytes, UA Negative Negative - 500+++ Virgie/mcL [facility] Nitrite, UA Negative Negative - Positive [facility] pH, UA 6.5 5 - 9 [facility] Protein, UA Negative Negative - 1999(20) ++++ mg/dL [facility] Spec Grav, UA 1.025 1 - 1.03 [facility] care Urobilinogen, UA 1.0 0.2 - 12 mg/dL [facility] XR wrist LT min 3V*on 2022 XR wrist LT min 3V* [place] [address] XRay Report Signed Patient: Nazia Harper MR#: [id number] : 1995 Acct:[id number] Age/Sex: 26 / F ADM Date: 05/11/22 [place] [facility] [place]: Type: [facility] Attending Dr: Dee Buchanan MD Copies to: Dee Buchanan MD Ordering Provider: Dee Buhcanan MD Date of Service: 05/11/22 XR/XR wrist [...] Travis Jr., D.OJuanis05/11/2022 12:18 PM Dictation Location: [facility] Transcribed By: [facility] 05/11/22 1218 Dictated By: Tan Travis Jr, DO 05/11/22 1217 Signed By: 05/11/22 1218 Normal [facility] XR wrist LT min 3V* [facility] [employer] Other XR wrist LT min 3V* [facility] [address] [employer] Other XR wrist LT min 3V* [address] [place] [address] [employer] Other XR wrist LT min 3V* [place] [address] [employer] Other XR wrist LT min 3V* XRay Report [employer] Other XR wrist LT min 3V* Signed [employer] Other XR wrist LT min 3V* Patient: Nazia Harper MR#: [id number] [employer] Other XR wrist LT min 3V* 67 [employer] Other XR wrist LT min 3V* : 1995 Acct:[id number] [employer] Other XR wrist LT min 3V* Age/Sex: 26 / F ADM Date: 05/11/22 [employer] Other XR wrist LT min 3V* Loc: [facility] Room: Type: [facility] [employer] Other XR wrist LT min 3V* Attending Dr: Dee Buchanan MD [employer] Other XR wrist LT min 3V* Copies to: Dee Buchanan MD [employer] Other XR wrist LT min 3V* Ordering Provider: Dee Buchanan MD [employer] Other XR wrist LT min 3V* Date of Service: 05/11/22 [employer] Other XR wrist LT min 3V* XR/XR wrist LT min 3V*: PAIN [employer] Other XR wrist LT min 3V* LEFT WRIST - 4 views [employer] Other XR wrist LT min 3V* CLINICAL HISTORY: Ganglion cyst posterior aspect at the level of the carpals. [employer] Other XR wrist LT min 3V* COMPARISON: None [employer] Other XR wrist LT min 3V* FINDINGS: [employer] Other XR wrist LT min 3V* No focal soft tissue abnormality is noted. No acute bony process is seen. Carpal bones appear [employer] Other XR wrist LT min 3V* unremarkable. [employer] Other XR wrist LT min 3V* XR/XR wrist LT min 3V* [employer] Other XR wrist LT min 3V* IMPRESSION: [employer] Other XR wrist LT min 3V* NO ACUTE BONY PROCESS. [employer] Other XR wrist LT min 3V* Impression dictated by: Tan Travis Jr., DJuanisOJuanis05/11/2022 12:18 PM [employer] Other XR wrist LT min 3V* Dictation Location: [place] [address] [employer] Other XR wrist LT min 3V* Transcribed By: JOSE ALEJANDRO 05/11/22 1218 [employer] Other XR wrist LT min 3V* Dictated By: Tan Travis Jr, DO 05/11/22 1217 [employer] Other XR wrist LT min 3V* Signed By: [employer] Other XR wrist LT min 3V* 05/11/22 1210 [employer] Other PAP ACOG PANEL 2: 21 to 29on 08-15-2021 . . [facility] Comment on above: Result Comment: Perf ormed at: BA Performed By: #### [id number] #### [facility] [address] [place] [address] Dr. Alek Fu Age Gdln ACOG Testing [facility] Comment on above: Performed By: #### [id number] #### [facility] [address] [place] [address] Dr. Alek Fu DIAGNOSIS: Comment [facility] Comment on above: Result Comment: NEGA TIVE FOR INTRAEPITHELIAL LESION OR MALIGNANCY. Performed at: BA Performed By: #### [id number] #### [facility] [address] [place] [address] Dr. Alek Fu Methodology: Comment [facility] Comment on above: Result Comment: This liquid based ThinPrep(R) pap test was screened with the use of an image guided system. Performed at: WB Performed By: #### [id number] #### [facility] [address] [place] [address] Dr. Alek Fu Note: Comment [facility] Comment on above: Result Comment: The Pap smear is a screening test designed to aid in the detection of premalignant and malignant conditions of the uterine cervix. It is not a diagnostic procedure and should not be used as the sole means of detecting cervical cancer. Both false-positive and false-negative reports do occur. . Performed at: WB Performed By: #### [id number] #### [facility] [address] [place] [address] Dr. Alek Fu Performed by: Comment [facility] Comment on above: Result Comment: Elen Carrillo, Penology Teacher (ASCP) Performed at: BA Performed By: #### [id number] #### [facility] [address] [place] [address] Dr. Alek Fu Reflex Criteria: Comment Normal [facility] Comment on above: Result Comment: The HPV DNA reflex criteria were not met with this specimen result therefore, no HPV testing was performed. . Performed at: BA Performed By: #### [id number] #### [facility] [address] [place] [address] Dr. Alek Fu Specimen adequacy: Comment Normal [facility] Comment on above: Result Comment: Sati sfactory for evaluation. Endocervical and/or squamous metaplastic cells (endocervical component) are present. Performed at: BA Performed By: #### [id number] #### [facility] [address] [place] [address] Dr. Alek Fu XR KNEE SABRINA 4V [...] by: ZURI PHOENIX Date: 2021-07-17 17:09 Normal [facility] CBC AUTO DIFFon 12-08-2020 BASO # 0.0 103/ul Normal 0.0-0.1 [facility] Comment on above: Performed By: #### C BC #### [facility] [address] [place] [address] Dr. Alek Fu Basophils/100 WBC (Bld) 0.2 % Normal 0.2-2.0 [facility] Comment on above: Performed By: #### C BC #### [facility] [address] [place] [address] Dr. Alek Fu EO # 0.0 103/ul Normal 0.0-0.7 [facility] Comment on above: Performed By: #### C BC #### [facility] [address] [place] [address] Dr. Alek Fu Eosinophils/100 WBC (Bld) 0.6 % Critically low 0.9-7.0 [facility] Comment on above: Performed By: #### C BC #### [facility] [address] [place] [address] Dr. Alek Fu Erythrocyte distribution width (RBC) [Ratio] 12.4 % Normal 11.0-15.0 [facility] Comment on above: Performed By: #### C BC #### [facility] [address] [place] [address] Dr. Alek Fu Hematocrit (Bld) [Volume fraction] 44.3 % Normal 36.0-48.0 [facility] Comment on above: Performed By: #### C BC #### [facility] [address] [place] [address] Dr. Alek Fu Hemoglobin (Bld) [Mass/Vol] 15.4 g/dL Normal 12.0-16.0 [facility] Comment on above: Performed By: #### C BC #### [facility] [address] [place] [address] Dr. Alek Fu IG # 0.04 10e3/ul Critically high 0.00-0.03 [facility] Comment on above: Performed By: #### C BC #### [facility] [address] [place] [address] Dr. Alek Fu IG % 0.6 % Critically high 0.0-0.5 [facility] Comment on above: Performed By: #### C BC #### [facility] [address] [place] [address] Dr. Alek Fu LYMPH # 3.2 103/ul Normal 1.2-3.8 [facility] Comment on above: Performed By: #### C BC #### [facility] [address] [place] [address] Dr. Alek Fu Lymphocytes/100 WBC (Bld) 50.2 % Normal 20.5-60.0 [facility] Comment on above: Performed By: #### C BC #### [facility] [address] [place] [address] Dr. Alek Fu MANUAL DIFF REQ NO Normal [facility] Comment on above: Performed By: #### C BC #### [facility] [address] [place] [address] Dr. Alek Fu MCH (RBC) [Entitic mass] 28.7 pg Normal 26.7-34.0 [facility] Comment on above: Performed By: #### C BC #### [facility] [address] [place] [address] Dr. Alek Fu MCHC (RBC) [Mass/Vol] 34.8 g/dL Normal 29.9-35.2 [facility] Comment on above: Performed By: #### C BC #### [facility] [address] [place] [address] Dr. Alek Fu MCV (RBC) [Entitic vol] 82.5 fL Normal 81.0-99.0 [facility] Comment on above: Performed By: #### C BC #### [facility] [address] [place] [address] Dr. Alek Fu MONO # 0.6 103/ul Normal 0.3-0.8 [facility] Comment on above: Performed By: #### C BC #### [facility] [address] [place] [address] Dr. Alek Fu Monocytes/100 WBC (Bld) 10.0 % Normal 1.7-12.0 [facility] Comment on above: Performed By: #### C BC #### [facility] [address] [place] [address] Dr. Alek Fu NEUT # 2.4 103/ul Normal 1.4-6.5 [facility] Comment on above: Performed By: #### C BC #### [facility] [address] [place] [address] Dr. Alek Fu Neutrophils/100 WBC (Bld) 38.4 % Critically low 43.0-75.0 [facility] Comment on above: Performed By: #### C BC #### [facility] [address] [place] [address] Dr. Alek Fu Platelet mean volume (Bld) [Entitic vol] 9.9 fL Normal 9.5-13.5 [facility] Comment on above: Performed By: #### C BC #### [facility] [address] [place] [address] Dr. Alek Fu PLT 206 103/ul Normal 150-450 [facility] Comment on above: Performed By: #### C BC #### [facility] [address] [place] [address] Dr. Alek Fu RBC 5.37 106/ul Normal 4.20-5.40 [facility] Comment on above: Performed By: #### C BC #### [facility] [address] [place] [address] Dr. Alek Fu WBC 6.3 103/ul Normal 4.0-11.0 [facility] Comment on above: Performed By: #### C BC #### [facility] [address] [place] [address] Dr. Alek Fu ER URINE PROFILEon 1 Bilirubin Ql (U) Negative Normal NEGATIVE [facility] Comment on above: Performed By: #### E RUR #### [facility] [address] [place] [address] Dr. Alek Fu Clarity (U) CLEAR Normal CLEAR [facility] Comment on above: Performed By: #### E RUR #### [facility] [address] [place] [address] Dr. Alek Fu Color (U) YELLOW Normal YELLOW [facility] Comment on above: Performed By: #### E RUR #### [facility] [address] [place] [address] Dr. Alek Fu ERUAHD A micrscopic examination will be performed if indicated. Normal [facility] Comment on above: Performed By: #### E RUR #### [facility] [address] [place] [address] Dr. Alek Fu Glucose Ql (U) Negative Normal NEGATIVE [facility] Comment on above: Performed By: #### E RUR #### [facility] [address] [place] [address] Dr. Alek Fu Hemoglobin Ql (U) TRACE-INTACT Abnormal NEGATIVE [facility] Comment on above: Performed By: #### E RUR #### [facility] [address] [place] [address] Dr. Alek Fu Ketones Ql (U) TRACE Abnormal NEGATIVE [facility] Comment on above: Performed By: #### E RUR #### [facility] [address] [place] [address] Dr. Alek Fu LEUKOCYTES Negative Normal NEGATIVE [facility] Comment on above: Performed By: #### E RUR #### [facility] [address] [place] [address] Dr. Alek Fu Nitrite Ql (U) Negative Normal NEGATIVE [facility] Comment on above: Performed By: #### E RUR #### [facility] [address] [place] [address] Dr. Alek Fu pH (U) 6.0 [pH] Normal 5-[address] [facility] Comment on above: Performed By: #### E RUR #### [facility] [address] [place] [address] Dr. Alek Fu SPEC GRAVITY 1.015 Normal 1.005-<=1.025 [facility] Comment on above: Performed By: #### E RUR #### [facility] [address] [place] [address] Dr. Alek Fu UA PROTEIN Negative Normal NEGATIVE/ TRACE [facility] Comment on above: Performed By: #### E RUR #### [facility] [address] [place] [address] Dr. Alek Fu UR MICRO IND NOT INDICATED Normal [facility] Comment on above: Performed By: #### E RUR #### [facility] [address] [place] [address] Dr. Alek Fu Urobilinogen Qn (U) 0.2 {Roya'U}/dL Normal 0.2 - 1.0 [facility] Comment on above: Performed By: #### E RUR #### [facility] [address] [address] [address] Alek Fu URon 12-08-2020 , QUAL Negative Normal NEGATIVE [facility] Comment on above: Performed By: #### P REGU #### [facility] [address] [place] [address] Dr. Alek Fu PROF CHEM 8 (BAS METB)on Anion gap [Moles/Vol] 13.0 mmol/L Normal [facility] Comment on above: Performed By: #### B MP #### [facility] [address] [place] [address] Dr. Alek Fu Calcium [Mass/Vol] 9.0 mg/dL Normal 8.4-10.2 [facility] Comment on above: Performed By: #### B MP #### [facility] [address] [place] [address] Dr. Alek Fu Chloride [Moles/Vol] 103 mmol/L Normal 98-107 [facility] Comment on above: Performed By: #### B MP #### [facility] [address] [place] [address] Dr. Alek Fu CO2 [Moles/Vol] 25.0 mmol/L Normal 22.0-30.0 [facility] Comment on above: Performed By: #### B MP #### [facility] [address] [place] [address] Dr. Alek Fu Creatinine [Mass/Vol] 0.96 mg/dL Normal 0.52-1.04 [facility] Comment on above: Performed By: #### B MP #### [facility] [address] [place] [address] Dr. Alek Fu EGFR-AF MOSOTHO >60 Normal >=60 [facility] Comment on above: Performed By: #### B MP #### [facility] [address] [place] [address] Dr. Alek Fu EGFR-NON AF MOSOTHO >60 Normal >=60 [facility] Comment on above: Performed By: #### B MP #### [facility] [address] [address] [address] Alek Fu Glucose [Mass/Vol] 99 mg/dL Normal 74-106 [facility] Comment on above: Performed By: #### B MP #### [facility] [id number] Alek Fu Potassium [Moles/Vol] 3.0 mmol/L Critically low 3.4-5.0 [facility] Comment on above: Performed By: #### B MP #### [facility] [address] [address] [address] Alek Fu Sodium [Moles/Vol] 138 mmol/L Normal 137-145 [facility] Comment on above: Performed By: #### B MP #### [facility] [address] [address] [address] Alek Fu Urea nitrogen [Mass/Vol] 11.0 mg/dL Normal 7.0-17.0 [facility] Comment on above: Performed By: #### B MP #### [facility] [address] [address] [address] Alek Fu Urea nitrogen/Creatinin e [Mass ratio] 11.5 mg/mg Normal [facility] Comment on above: Performed By: #### B MP #### [facility] [address] [address] [address] Alek Fu [facility] 11-19 SARS-CoV-2 (COVID-19) RNA SANTANA+probe Ql (Unsp spec) Detected Critically abnormal NOT DETECTED [facility] Comment on above: Result Comment: This test is not yet approved or cleared by the [place] FDA. When there are no FDA-approved or cleared tests available, and other criteria are met, FDA can make tests available under an emergency access mechanism called an Emergency Use Authorization (EUA). The EUA for this test is supported by the [place] of Health and Human Service's (HHS's) declaration [...] used). Performed By: #### C TB #### [facility] [address] [place] [address] Dr. Alek Fu Vital Signs Date Time Vital Sign Value Performing Clinician Shashai anthony 03-19-2024 10:38-0500 Body mass index (BMI) [Ratio] 37.68 kg/m2 Amanda Los Angeles PA Work Phone: [facility] 03-19-2024 10:38-0500 Body weight 93.44 kg Amanda Los Angeles PA Work Phone: [facility] 03-19-2024 10:38-0500 Diastolic blood pressure 76 mm[Hg] Amanda Los [place] PA Work Phone: [facility] 03-19-2024 10:38-0500 Systolic blood pressure 122 mm[Hg] Amanda Los Angeles PA Work Phone: [facility] 03-05-2024 09:47-0500 Body mass index (BMI) [Ratio] 37.93 kg/m2 Amanda Los Angeles PA Work Phone: [facility] 03-05-2024 09:47-0500 Body weight 94.08 kg Amanda Los Angeles PA Work Phone: [facility] 03-05-2024 09:47-0500 Diastolic blood pressure 74 mm[Hg] Amanda Los Angeles PA Work Phone: [facility] 03-05-2024 09:47-0500 Systolic blood pressure 110 mm[Hg] Amanda Juan PA Work Phone: [facility] 03-01-2024 11:46-0500 Body mass index (BMI) [Ratio] 37.57 kg/m2 Amanda Los [place] PA Work Phone: [facility] 03-01-2024 11:46-0500 Body weight 93.17 kg Amanda Los Angeles PA Work Phone: [facility] 03-01-2024 11:46-0500 Diastolic blood pressure 90 mm[Hg] Amanda Juan PA Work Phone: [facility] 03-01-2024 11:46-0500 Systolic blood pressure 130 mm[Hg] Amanda Los [place] PA Work Phone: [facility] 02-20-2024 10:07-0500 Body mass index (BMI) [Ratio] 37.68 kg/m2 Anai Jennyfer DO Work Phone: [facility] 02-20-2024 10:07-0500 Body weight 93.44 kg Anai Jennyfer DO Work Phone: [facility] 02-20-2024 10:07-0500 Diastolic blood pressure 80 mm[Hg] Anai Jennyfer DO Work Phone: [facility] 02-20-2024 10:07-0500 Systolic blood pressure 122 mm[Hg] Anai Jennyfer DO Work Phone: [facility] 01-17-2024 10:15-0400 Body mass index (BMI) [Ratio] 36 kg/m2 Amanda Juan PA Work Phone: [facility] 01-17-2024 10:15-0400 Body weight 89.27 kg Amanda Juan PA Work Phone: [facility] 01-17-2024 10:15-0400 Diastolic blood pressure 70 mm[Hg] Amanda Juan PA Work Phone: [facility] 01-17-2024 10:15-0400 Systolic blood pressure 122 mm[Hg] Amanda Juan PA Work Phone: [facility] 12-20-2023 09:58-0400 Body mass index (BMI) [Ratio] 34.93 kg/m2 Amanda Juan PA Work Phone: [facility] 12-20-2023 09:58-0400 Body weight 86.64 kg Amanda Los Angeles PA Work Phone: [facility] 12-20-2023 09:58-0400 Diastolic blood pressure 76 mm[Hg] Amanda Los Angeles PA Work Phone: [facility] 12-20-2023 09:58-0400 Systolic blood pressure 124 mm[Hg] Amanda Martinez PA Work Phone: [facility] 11-23-2023 09:47-0400 Body height 157.5 cm Lorene Hemmer PA Work Phone: [facility] 11-23-2023 09:47-0400 Body mass index (BMI) [Ratio] 34.39 kg/m2 Lorene Hemmer PA Work Phone: [facility] 11-23-2023 09:47-0400 Body weight 85.28 kg Lorene Hemmer PA Work Phone: [facility] 11-23-2023 09:47-0400 Diastolic blood pressure 86 mm[Hg] Lorene Hemmer PA Work Phone: [facility] 11-23-2023 09:47-0400 Heart rate 81 /min Lorene Hemmer PA Work Phone: [facility] 11-23-2023 09:47-0400 Respiratory rate 16 /min Lorene Hemmer PA Work Phone: [facility] 11-23-2023 09:47-0400 SaO2% (BldA) [Mass fraction] 98 % Lorene Hemmer PA Work Phone: [facility] 11-23-2023 09:47-0400 Systolic blood pressure 124 mm[Hg] Lorene Hemmer PA Work Phone: [facility] 11-22-2023 09:29-0400 Body mass index (BMI) [Ratio] 34.41 kg/m2 Anai Jennyfer DO Work Phone: [facility] 11-22-2023 09:29-0400 Body weight 85.33 kg Anai Jennyfer DO Work Phone: [facility] 11-22-2023 09:29-0400 Diastolic blood pressure 74 mm[Hg] Anai Jennyfer DO Work Phone: [facility] 11-22-2023 09:29-0400 Systolic blood pressure 122 mm[Hg] [...] encounter procedure Anai Jennyfer DO Work Phone: [facility] Start: 11-22-2023 End: 11-22-2023 Periodic preventive [...] Start: 05-11-2022 End: 05-11-2022 ambulatory Dee Buchanan Facility:[facility] Start: 05-11-2022 End: 05-11-2022 ambulatory MD Dee Buchanan Work Phone: [facility] Work Phone: Start: 05-11-2022 End: 05-11-2022 Patient encounter procedure MD Dee Buchanan Work Phone: [facility] Start: 08-10-2021 End: 08-10-2021 [...] Plain X-ray of left wrist MD Dee Buchnaan Work Phone: Plan of Treatment Date Care Activity Detail Author Start: 04-03-2024 End: 04-03-2024 Patient encounter procedure 04/03/2024 10:30 AM EST Routine [facility] [address] [place] [address] JenynferAnai, DO [address] [place], [place] [id number] Arrived [facility] Comment on above: Arrived Start: 03-19-2024 End: 03-19-2024 Patient encounter procedure [facility] Comment on above: Arrived Start: 03-05-2024 End: 03-05-2024 Patient encounter procedure [facility] Comment on above: Arrived Start: 03-05-2024 End: 03-05-2024 Professional / ancillary services management 03/05/2024 9:00 AM EST Ancillary Procedure [facility] [address] [place] [id number] [facility] Start: 03-01-2024 End: 03-01-2025 Alanine aminotransferase [Enzymatic activity/volume] in Serum or Plasma ALT Lab Routine induced hypertension, antepartum Expected: 03/01/2024 (Approximate), Expires: 03/01/2025 [facility] Comment on above: Expected: 03/01/2024 (Approximate), Expires: 03/01/2025 Start: 03-01-2024 End: 03-01-2025 Aspartate aminotransferase [Enzymatic activity/volume] in Serum or Plasma AST Lab Routine induced hypertension, antepartum Expected: 03/01/2024 (Approximate), Expires: 03/01/2025 [facility] Comment on above: Expected: 03/01/2024 (Approximate), Expires: 03/01/2025 Start: 03-01-2024 End: 03-01-2025 CBC W Auto Differential panel - Blood CBC and differential Lab Routine induced hypertension, antepartum Expected: 03/01/2024 (Approximate), Expires: 03/01/2025 [facility] Comment on above: Expected: 03/01/2024 (Approximate), Expires: 03/01/2025 Start: 03-01-2024 End: 03-01-2025 Creatinine [Mass/volume] in Serum or Plasma Creatinine Lab Routine induced hypertension, antepartum Expected: 03/01/2024 (Approximate), Expires: 03/01/2025 [facility] Work Phone: Comment on above: Expected: 03/01/2024 (Approximate), Expires: 03/01/2025 Start: 03-01-2024 End: 03-01-2025 Lactate dehydrogenase [Enzymatic activity/volume] in Serum or Plasma by Lactate to pyruvate reaction Lactate dehydrogenase Lab Routine induced hypertension, antepartum Expected: 03/01/2024, Expires: 03/01/2025 [facility] Comment on above: Expected: 03/01/2024 , Expires: 03/01/2025 Start: 03-01-2024 End: 03-01-2025 Protein, urine, 24 hour Protein, urine, 24 hour Lab Routine induced hypertension, antepartum Expected: 03/01/2024 (Approximate), Expires: 03/01/2025 [facility] Comment on above: Expected: 03/01/2024 (Approximate), Expires: 03/01/2025 Start: 03-01-2024 End: 03-01-2025 Pt and ptt Pt and ptt Lab Routine induced hypertension, antepartum Expected: 03/01/2024, Expires: 03/01/2025 [facility] Comment on above: Expected: 03/01/2024 , Expires: 03/01/2025 Start: 03-01-2024 End: 12-12-2025 Urate [Mass/volume] in Serum or Plasma Uric acid Lab Routine induced hypertension, antepartum Expected: 03/01/2024 (Approximate), Expires: 03/01/2025 [facility] Comment on above: Expected: 03/01/2024 (Approximate), Expires: 03/01/2025 Start: 03-01-2024 End: 03-01-2025 Urea nitrogen [Mass/volume] in Serum or Plasma BUN Lab Routine induced hypertension, antepartum Expected: 03/01/2024, Expires: 03/01/2025 [facility] Comment on above: Expected: 03/01/2024 , Expires: 03/01/2025 Start: 03-01-2024 End: 03-01-2025 US biophysical profile w non stress test US biophysical profile w non stress test Imaging Routine Hypertension affecting in third trimester Lightheadedness Dizziness Expected: 03/01/2024 (Approximate), Expires: 03/01/2025 [facility] Comment on above: Expected: 03/01/2024 (Approximate), Expires: 03/01/2025 Start: 02-20-2024 End: 02-19-2025 US for US OB SCAN FOR GROWTH Imaging Routine Excessive growth affecting management of , antepartum, single or unspecified fetus Expected: 02/20/2024 (Approximate), Expires: 02/19/2025 [facility] Work Phone: Comment on above: Expected: 02/20/2024 (Approximate), Expires: 02/19/2025 Start: 02-20-2024 End: 02-20-2024 Patient encounter procedure [facility] Comment on above: Arrived Start: 01-20-2024 End: 12-19-2024 US for US OB INCOMPLETE ANATOMY W US OB TRANSVAGINAL Imaging Routine Encounter for follow-up ultrasound of anatomy Expected: 01/20/2024 (Approximate), Expires: 12/19/2024 [facility] Work Phone: Comment on above: Expected: 01/20/2024 [...] Procedure [facility] [address] [place] [id number] [facility] Start: 12-20-2023 End: 12-20-2023 Patient encounter procedure [facility] Comment on above: Arrived Start: 12-14-2023 End: 12-14-2023 Professional / ancillary services management 12/14/2023 9:00 AM EDT Ancillary Procedure [facility] [address] [place] [id number] [facility] Start: 11-22-2023 End: 05-21-2024 [...] 11-20-2023 Influenza vaccination Influenza Vacc ine (#1) [facility] CHLAMYDIA TRACHOMATI S (GENITO/STI) CHLAMYDIA TRACHOMATIS (GENITO/STI) Lab Routine STD exposure Ordered: 11/22/2023 [facility] Comment on above: Ordered: 11/22/2023 Cytology Cervical or vaginal smear or scraping study Pap Smear Pathology and Cytology Routine Well woman exam with routine gynecological exam Ordered: 11/22/2023 [facility] Comment on above: Ordered: 11/22/2023 Neisseria gonorrhoea e DNA [Presence] in Unspecified specimen by SANTANA with probe detection Neisseria gonorrhea DNA probe, direct Lab Routine STD exposure Ordered: 11/22/2023 [facility] Comment on above: Ordered: 11/22/2023 SURESWAB(R) ADVANCED VAGINITIS PLUS, TMA SURESWAB(R) ADVANCED VAGINITIS PLUS, TMA Pathology and Cytology Routine Vaginal discharge Ordered: 11/22/2023 [facility] Work Phone: Comment on above: Ordered: 11/22/2023 Immunizations Immunization Date Immunization Notes Care Provider [facility] 12-09-2019 diphtheria, tetanus toxoids and pertussis vaccine Lorene ROMAN Work Phone: [facility] 12-09-2019 measles, mumps and rubella virus vaccine Lorene ROMAN Work Phone: [facility] 05-30-2000 diphtheria, tetanus toxoids and acellular pertussis vaccine, unspecified formulation Lorene ROMAN Work Phone: [facility] Work Phone: 05-30-2000 measles, mumps and rubella virus vaccine Lorene Hemstan ROMAN Work Phone: [facility] 05-30-2000 poliovirus vaccine, inactivated Lorene ROMAN Work Phone: [facility] 03-30-2000 influenza, seasonal, injectable Lorene ROMAN Work Phone: [facility] 03-30-2000 influenza virus vaccine, unspecified formulation Lorene ROMAN Work Phone: [facility] 09-12-1998 haemophilus influenz ae type b vaccine, conjugate unspecified formulation Lorene ROMAN Work Phone: [facility] 11-28-1996 diphtheria, tetanus toxoids and acellular pertussis vaccine, unspecified formulation Lorene Hemmer PA Work Phone: [facility] 11-28-1996 haemophilus influenz ae type b vaccine, conjugate unspecified formulation Lorene Hemmer PA Work Phone: [facility] 11-28-1996 measles, mumps and rubella virus vaccine Lorene Hemmer PA Work Phone: [facility] 10-27-1996 trivalent poliovirus vaccine, live, oral Lorene Hemmer PA Work Phone: [facility] 01-31-1996 DTP-Haemophilus influenzae type b conjugate vaccine Lorene Hemmer PA Work Phone: [facility] 01-31-1996 hepatitis B vaccine, pediatric or pediatric/adolescent dosage Lorene Hemmer PA Work Phone: [facility] 01-31-1996 trivalent poliovirus vaccine, live, oral Lorene Hemmer PA Work Phone: [facility] 1995 DTP-Haemophilus influenzae type b conjugate vaccine Lorene Hemmer PA Work Phone: [facility] 1995 trivalent poliovirus vaccine, live, oral Lorene Hemmer PA Work Phone: [facility] 1995 DTP-Haemophilus influenzae type b conjugate vaccine Lorene Hemmer PA Work Phone: [facility] 1995 hepatitis B vaccine, pediatric or pediatric/adolescent dosage Lorene Hemmer PA Work Phone: [facility] 1995 haemophilus influenz ae type b vaccine, conjugate unspecified formulation Lorene Hemmer PA Work Phone: [facility] 1995 hepatitis B vaccine, pediatric or pediatric/adolescent dosage Lorene Hemmer PA Work Phone: [facility] Payers Date Payer Category Payer [facility] (unspecified) [id number] 2023 Private Health Insurance [id number] 2022 Private Health Insurance [id number] 2022 Self-pay 2022 Unknown [id number] 1995 Unknown [id number] 2.16.84 [id number] 1995 Unknown [id number] 2.16.84 [id number] 1995 Unknown [id number] 2.16.84 0.1.108446.3.579.2.593 1995 Unknown [id number] 2.16.84 0.1.530733.3.579.2.593 1995 Unknown [id number] [id number] 1995 Unknown [id number] 2.16.840.1.784740.3.579.2.1258 1995 Unknown [id number] 2.16.840.1.462052.3.579.2.1258 1995 Unknown [id number] 2.16.840.1.090548.3.579.2.9 1995 Unknown [id number] 2.16.840.1.255278.3.579.2.1258 1995 Unknown [id number] 2.16.840.1.923404.3.579.2.125 1995 Unknown [id number] 2.16.840.1.046145.3.579.2.1258 1995 Unknown [id number] 2.16.840.1.142776.3.579.2.1258 1995 Unknown [id number] 2.16.840.1.553444.3.579.2.1258 1995 Unknown [id number] 2.16.840.1.143579.3.579.2.1259 1995 Unknown [id number] 2.16.840.1.447842.3.579.2.9 1995 Unknown [id number] 2.16.840.1.810654.3.579.2.9 1995 Unknown [id number] 2.16.840.1.964003.3.579.2.1258 1995 Unknown [id number] 2.16.840.1.171053.3.579.2.1258 1995 Unknown [id number] 2.16.840 .1.899422.3.579.2.1259 1959 Unknown [id number] 1959 Unknown [id number] 1959 Unknown [id number] Unknown [id number] 2.16.840.1.142164.3.579.2.531 Social History Date Type Detail Facility Tobacco smoking stat us NEIS Unknown if ever smoked [facility] Work Phone: Start: 1995 Sex Assigned At Female [facility] Start: 09-08-2023 End: 11-23-2023 Sex Assigned At [facility] Start: 11-24-2022 Tobacco smoking status NEIS Never smoked tobacco [facility] Start: 11-24-2022 [...] to any clubs or organizations such as taoist groups, unions, fraternal or athletic groups, or [...] Gender identity Identifies as female gender (finding) [facility] Start: 10-18-2022 Sexual orientation Heterosexual (finding) [facility] Start: 10-24-2023 End: 11-22-2023 Alcoholic beverage intake Current drinker of alcohol (finding) [facility] Clinical Notes 05-11-2022 to 03-19-2024 ABEL [...] of: ABEL Carroll documented in this encounter [facility] 03-05-2024 History of Presen t illness Narrative [...] of: ABEL Carroll documented in this encounter [facility] 03-01-2024 History of Presen t illness Narrative [...] of: ABEL Carroll documented in this encounter [facility] 02-20-2024 History of Presen t illness Narrative [...] 2 (SARS-CoV-2) detected 08/18/2022 Generalized anxiety disorder (CMS/[facility]) 03/23/2023 Resolved Ambulatory Problems Diagnosis Date Noted Allergic rhinitis 08/18/2022 Sinusitis 08/18/2022 Past Medical History: Diagnosis Date Allergies Central auditory processing disorder Chronic ear infection Depression ([facility]) ETD (eustachian tube dysfunction) Miscarriage TMJ (dislocation of temporomandibular joint) HISTORY PAST MEDICAL HISTORY SOCIAL HISTORY Past Medical History: Diagnosis Date Allergies Central auditory processing disorder Chronic ear infection Depression ([facility]) ETD (eustachian tube dysfunction) Ganglion cyst of [...] nursing note reviewed. Exam conducted with a flask fitter present. Vitals: Estimated body mass index is [...] Anai Burger DO documented in this encounter [facility] 01-17-2024 History of Presen t illness Narrative [...] nursing note reviewed. Exam conducted with a flask fitter present. Vitals: Estimated body mass index is [...] of: ABEL Carroll documented in this encounter [facility] 12-20-2023 History of Presen t illness Narrative [...] of: ABEL Carroll documented in this encounter [facility] 11-25-2023 Telephone encount er Note Understood. [facility] 11-25-2023 Miscellaneous Notes Formattin g of this note might be different from the original. Understood. Nazia called stating her ob just wants her on Effexor instead of buspirone so that's what she'll be on documented in this encounter [facility] 11-25-2023 Telephone encount er Note Nazia called stating her ob just wants her on Effexor instead of buspirone so that's what she'll be on [facility] 11-23-2023 History of Presen t illness Narrative [...] Medication Follow Up. documented in this encounter [facility] 11-22-2023 History of Presen t illness Narrative [...] 2 (SARS-CoV-2) detected 08/18/2022 Generalized anxiety disorder ([facility]/HCC) 03/23/2023 Resolved Ambulatory Problems Diagnosis Date Noted Allergic rhinitis 08/18/2022 Sinusitis 08/18/2022 Past Medical History: Diagnosis Date Allergies Central auditory processing disorder Chronic ear infection Depression (CMS/HCC) ETD (eustachian tube dysfunction) Miscarriage TMJ (dislocation of temporomandibular joint) HISTORY PAST MEDICAL HISTORY SOCIAL HISTORY Past Medical History: Diagnosis Date Allergies Central auditory processing disorder Chronic ear infection Depression (CMS/[facility]) ETD (eustachian tube dysfunction) Ganglion cyst of [...] nursing note reviewed. Exam conducted with a flask fitter present. Vitals: Estimated body mass index is [...] Anai Burger DO documented in this encounter [facility] 05-11-2022 Evaluation note Encounter Date Diagnosis Assessment [...] Instructed patient to wear brace for activities. [employer] Other Evaluation noteNo assessment information available [facility] Work Phone: Evaluation note* Diagnosis Encounter [...] History learning disability Surgical History tymponostomy x7 [employer] Other Summary Purpose Family History No Family History Records FoundNo Family History Records FoundNo Family History Records Found Advance Directives No Advanced Directives Records FoundNo Advanced Directives Records FoundNo Advanced Directives Records Found Additional Source Comments INFORMATION SOURCE (unrecogn ized section and content) DATE CREATED AUTHOR 09/12/2021 [facility] DATE CREATED AUTHOR AUTHOR'S ORGANIZ ATION 05/21/2022 [facility] DATE CREATED AUTHOR AUTHOR'S ORGANIZ ATION 03/20/2024 [facility] Care Teams (unrecognized sec tion and content) Team Status: Inactive Member Role Status Dates Dee Buchanan MD Attending Provider Active Manager Summer Relationship Specialty Start Date End Date Verito Lamb MD [address] [place] [address] PCP - General Family Medicine 10/18/22 Manager Summer Relationship Specialty Start Date End Date Verito Lamb MD [address] [place] [address] PCP - General Family Medicine 10/18/22 Manager Summer Relationship Specialty Start Date End Date Verito Lamb MD [address] [place] [address] PCP - General Family Medicine 10/18/22 Manager Summer Relationship Specialty Start Date End Date Verito Lamb MD [address] [place] [address] PCP - General Family Medicine 10/18/22 Manager Summer Relationship Specialty Start Date End Date Verito Lamb MD [address] [facility] [address] [place] [address] PCP - General [facility] Medicine 10/18/22 Manager Summer Relationship Specialty Start Date End Date Verito Lamb MD [address] [facility] [address] [place] [address] PCP - General Family Medicine 10/18/22 Manager Summer Relationship Specialty Start Date End Date Verito Lamb MD [address] [facility] [address] [place] [address] PCP - [facility] 10/18/22 Manager Summer Relationship Specialty Start Date End Date Verito Lamb MD [address] [facility] [address] [place] [address] PCP - [facility] Medicine 10/18/22 Manager Summer Relationship Specialty Start Date End Date Verito Lamb MD [address] [facility] [address] [place] [address] PCP - [facility] Medicine 10/18/22 Manager Summer Relationship Specialty Start Date End Date Verito Lamb MD [address] [facility] [address] [place] [address] PCP - [facility] Medicine 10/18/22 Manager Summer Relationship Specialty Start Date End Date Verito Lamb MD [address] [facility] [address] [place] [address] PCP - [facility] Medicine 10/18/22 Manager Summer Relationship Specialty Start Date End Date Verito Lamb MD [address] [facility] [address] [place] [address] PCP - General Family Medicine 10/18/22 Manager Summer Relationship Specialty Start Date End Date Verito Lamb MD [address] [id number] PCP - General Family Medicine 10/18/22 Goals [...] BE BASED ON THE PRIMARY CLINICAL RECORDS. [facility] [employer] [facility]. provides no warranty or guarantee of the accuracy or completeness of information in this document.
== END 2024-04-04 12:19 | disposition home or self-care (01) ==
LOC: FBCO 00:53 → FBC 11:05
PROVIDERS: PCP Family Medicine; Visit Provider Obstetrics & Gynecology
DX: O16.3 Unspecified maternal hypertension, third trimester (principal); Z3A.36 36 weeks gestation of pregnancy
CPT/HCPCS: 59025

== ENCOUNTER 2024-04-07 00:58 | Outpatient (OUT) | payer OTHER, SELFPAY ==
--- NOTE | 2024-04-07 | US_ITS ---
[address] [address] Patient Name: ELIZABETH MOLINA MRN: [id number] date: 1995 Sex: F Assigned Patient Location: [facility] Current Patient Location: Accession/Order Number: [id number] Exam Date: 04/07/2024 14:35 Report Date: 04/09/2024 01:20 At the request of: GEE MARTINEZ Procedure: US OB BPP w non-stress EXAMINATION: US OB BPP w non-stress HISTORY:HYPERTENSION AFFECTING IN THIRD TRIMESTER O16.3 COMPARISON: Ultrasound OB biophysical 03/31/2024 TECHNIQUE: Ultrasound biophysical profile was performed in the radiology department. BREATHING MOVEMENTS: 2 GROSS BODY MOVEMENTS: 2 TONE: 2 QUALITATIVE AMNIOTIC FLUID VOLUME: 2 PRESENTATION: CEPHALIC HEART RATE: 154.29 bpm AMNIOTIC FLUID VOLUME: 13.33 cm GESTATIONAL AGE: 36 weeks 3 days US/US OB BPP w non-stress IMPRESSION: Total biophysical profile score: 8 Electronically authenticated by: RICHARD SCHULZ Date: 04/09/2024 01:20
--- OUTSIDE RECORDS SUMMARY | 2024-04-07 01:01 | XMS_ITS | CCD ---
Author Organization [facility] Care Team Providers Care Sustainable Design Consultant Name Role Phone JENNYFER, DR OSPINA [...] Consulting Unavailable MD Dee Buchanan Attending Provider [phone] Dee Buchanan Attending Unavailable Dee Buchanan Admitting Unavailable Dee Buchanan Unavailable Verito Lamb MD Primary Care Provider [phone] LORENE PLASENCIA Attending Unavailable LORENE PLASENCIA Attending Unavailable SANGEETHA GRAY Attending Unavailable AMANDA MARTINEZ Attending Unavailable JENNYFERANAI Garcia Attending Unavailable ANAI BURGER Attending Unavailable LORENE PLASENCIA Attending Unavailable AMANDA MARTINEZ Attending Unavailable AMANDA MARTINEZ Attending Unavailable ANAI BURGER Attending Unavailable JUANAMANDA Attending Unavailable JUANAMANDA Attending Unavailable AMANDA MARTINEZ Attending Unavailable ANAI BURGER Attending Unavailable Allergies Allergy Classification Reported Allergen(s) Allergy Type Date of Onset Reaction(s) Facility (1 source) Cephalexin Drug Allergy [facility] Repository (20 sources) ARIPiprazole Drug Allergy 3 [facility] Work Phone: (20 sources) cariprazine Drug Allergy 3 [facility] Healthcare (20 sources) Cephalexin Drug Allergy 3 Unknown [facility] (20 sources) Propofol Drug Allergy 3 Unknown [facility] (20 sources) Flavoring Agent Allergy to substance 3 Unknown [facility] (20 sources) Mosquito (Diagnostic) Drug Allergy 3 Unknown [facility] (3 sources) Flavoring Agent (Non-Screening) Allergy to substance 3 Unknown [facility] Medications [...] Active labetalol hydrochloride 100 mg oral tablet (12 sources) beta-Adrenergic Adina Start: 024 End: 025 [...] mouth Daily 90 tablet 10/11/2023 01/09/2024 Active omeprazole 20 mg delayed release oral capsule (2 sources) Proton Pump Inhibitor Start: 04-03-2024 End: 04-03-2025 take 1 capsule by mouth before mealtime omeprazole (PriLOSEC) [address] capsule Indications: Heartburn during in third trimester Take 1 capsule (20 mg) by mouth in the morning. Take before meals. Do not crush or chew.. 30 capsule 11 04/03/2024 04/03/2025 Active MV & Min w/FA-DHA ([facility]MY [...] HCl 100 MG 1 tablet Orally Twi a day Active triamcinolone acetonide 40 mg/ml [...] not applicable or unspecified] 02-20-2024 Episodic Other complications of (2 sources) Heartburn; Translations: [Other specified related conditions, third trimester] 04-03-2024 Episodic Other connective tissue disease (1 source) [...] 08-18-2022 Chronic Other and delivery including normal (16 sources) Second trimester ; Translations: [Encounter for [...] [33 weeks gestation of ] 03-19-2024 Episodic Residual codes; unclassified (2 sources) Gestation period, 35 weeks; Translations: [35 weeks gestation of ] 04-03-2024 Episodic Unclassified (1 source) Pain in left [...] UA Positive Negative - 4(70) +++ mg/dL [facility] Comment on above: small Blood, UA Positive Negative - 50 Neno/mcL [facility] Comment on above: trace Clarity, UA [...] Hospital pH, UA 6 5 - 9 [facility] Protein, UA Positive Negative - 1999(20) ++++ mg/dL [facility] Comment on above: 30 Spec Grav, UA 1.03 1 - 1.03 [facility] Urobilinogen, UA 0.2 0.2 - 12 mg/dL [facility] Urinalysis macro (dipstick) [...] Hospital pH, UA 6 5 - 9 [facility] Protein, UA Negative Negative - 1999(20) ++++ mg/dL [facility] Spec Grav, UA 1.015 1 - 1.03 [facility] Urobilinogen, UA 0.2 0.2 - 12 mg/dL [facility] APTTon 03-02-2024 aPTT Coag (Bld) [Time] 23.9 s [facility] No Panel Informationon 03-02 [facility] e SRMCOH PROTHROMBIN TIME INR W/O COUMon 03-02-2024 PT Coag (PPP) [Time] 9.9 s [facility] TB INR 0.93 [facility] Comment on above: DESIRED INR: 2.0-3.0 CONDITIONS NOT LISTED BELOW 2.5-3.5 FOR PROSTHETIC HEART VALVE REPLACEMENT 2.5-3.5 RECURRENT THROMBOSIS Urinalysis macro (dipstick) panel (U)on 03-01-2024 Bilirubin, UA Negative Negative - 4(70) +++ mg/dL [facility] Blood, UA Negative Negative - 50 Neno/mcL [facility] Clarity, UA Clear [facility] re Color, UA Yellow [facility] Glucose, UA Negative Negative - 1999(110) ++++ mg/dL [facility] Interpretation and review of laboratory results Abnormal [facility] Ketones, UA Negative Negative - 160(16) ++++ mg/dL [facility] Leukocytes, UA Positive Negative - 500+++ Virgie/mcL [facility] Comment on above: small Nitrite, UA Negative Negative - Positive [facility] pH, UA 7 5 - 9 [facility] Protein, UA Trace Negative - 1999(20) ++++ mg/dL [facility] Spec Grav, UA 1.02 1 - 1.03 [facility] Urobilinogen, UA 0.2 0.2 - 12 mg/dL [facility] GLUCOSE 1 HOURon 01-25-2024 Glucose [Mass/Vol] 131 mg/dL High NINF - 13 0 mg/dL [facility] Interpretation and review of laboratory results Abnormal [facility] Urinalysis macro (dipstick) panel (U)on 01-17-2024 Bilirubin, UA Negative Negative - 4(70) +++ mg/dL [facility] Blood, UA Negative Negative - 50 Neno/mcL [facility] Clarity, UA Clear [facility] Color, UA Yellow [facility] Glucose, UA Negative Negative - 1999(110) ++++ mg/dL [facility] Interpretation and review of laboratory results Abnormal [facility] re Ketones, UA Negative Negative - 160(16) ++++ mg/dL [facility] Leukocytes, UA Trace Negative - 500+++ Virgie/mcL [facility] Nitrite, UA Negative Negative - Positive [facility] pH, UA 6 5 - 9 [facility] Protein, UA Negative Negative - 1999(20) ++++ mg/dL [facility] Spec Grav, UA 1.02 1 - 1.03 [facility] Urobilinogen, UA 1.0 0.2 - 12 mg/dL [facility] Urinalysis macro (dipstick) panel (U)on 12-20-2023 Bilirubin, UA Negative Negative - 4(70) +++ mg/dL [facility] Blood, UA Negative Negative - 50 Neno/mcL [facility] Clarity, UA Clear [facility] Color, UA Yellow [facility] Glucose, UA Negative Negative - 1999(110) ++++ mg/dL [facility] Interpretation and review of laboratory results Abnormal [facility] Ketones, UA Negative Negative - 160(16) ++++ mg/dL [facility] Leukocytes, UA Trace Negative - 500+++ Virgie/mcL [facility] Nitrite, UA Negative Negative - Positive [facility] pH, UA 6.5 5 - 9 [facility] Protein, UA Negative Negative - 1999(20) ++++ mg/dL [facility] Spec Grav, UA 1.025 1 - 1.03 [facility] Urobilinogen, UA 0.2 0.2 - 12 mg/dL [facility] AFP, SERUM, OPEN SPINA BIFID Aon 12-11-2023 AFP MOM 0.79 . [facility] AFP VALUE 34.7 ng/mL . [facility] COMMENT: Comment . [facility] Comment on above: Treva Gong , Ph.D., [facility] Director References: Available Upon Request. Multiples Of Median Cutoffs For AFP Elevations Banuelos 2.5 Black 2.8 IDD 2.0 Twins 4.5 Abbreviation Definitions IDD - Insulin Dep Diabetes OSBR - Open Spina Bifida Risk For further inquiries contact [facility] at [phone]. This test was developed and its performance characteristics determined by [facility]. It has not been cleared or approved by the Food and Drug Administration. Performed at: [facility] [address] [facility], [place], [place] [id number] Business Affairs Manager: Maira Jones [facility], Phone: [phone] GEST. AGE ON COLLECTION DATE 19.3 . weeks [facility] GESTAT. AGE BASED ON LMP . [facility] Comment on above: Recalculations are n ot recommended when gestational dating by LMP and ultrasound are within 10 days. INSULIN DEP DIABETES No . [facility] INTERPRETATION Comment . [facility] Comment on above: Interpretation: Scre en [...] Customer Services to discuss available options. The [place] [employer] recommends amniocentesis be offered to women age 35 and older. [age] [facility] MULTIPLE GESTATION No . [facility] H [facility] [place] [address] [place] [phone] . [facility] Rosa hurd RACE . [facility] [employer] RESULTS Report . [facility] [employer] TEST RESULTS: Negative . [facility] WEIGHT 188 . lbs [facility] N N LMP [id number] 16 N 1 Y 188 N N N N N White/ [facility] [employer] IGP,APTIMA HPV,AGE GDLNon AGE GDLN ACOG TESTING Note . [facility] Comment on above: TESTS RESULT FLAG UN ITS REF RANGE LAB Clinician Provided Cytology Information Source.............Cervix No. of containers..01 ThinPrep Vial Age Zahida Peacock... FLAG LEGEND: L-Low Normal,H-High Normal,LL-Alert Low,HH-Alert High <-Panic Low,>-Panic High,A-Abnormal,AA-Critical Abnormal Performed at: 01 =G [address] [id number] Tierra Morales MD, IGP, RFX APTIMA HPV ASCU Note . [facility] Comment on above: TESTS RESULT FLAG UN ITS REF RANGE LAB DIAGNOSIS: 02 NEGATIVE FOR INTRAEPITHELIAL LESION OR MALIGNANCY. Specimen adequacy: 02 Satisfactory for evaluation. No endocervical component is identified. Performed by: 02 Francesca Blanc, Oil And Gas Superintendent ([facility]) . 02 Note: Note 02 The [...] <-Panic Low,>-Panic High,A-Abnormal,AA-Critical Abnormal Performed at: [address] [address] Tierra Morales MD, Performed at: =G - [address] [id number] Business Affairs Manager: Tierra Morales MD, Phone: [phone] Performed at: [facility] [address] [id number] Business Affairs Manager: Tierra Morales MD, Phone: [phone] SPATULA-ALONE CERVIX [facility] [employer] e Urinalysis macro (dipstick) panel (U)on 11-22-2023 Bilirubin, UA Negative Negative - 4(70) +++ mg/dL [facility] Blood, UA Negative Negative - 50 Neno/mcL [facility] Clarity, UA Clear [facility] re Color, UA Yellow [facility] [employer] Glucose, UA Negative Negative - 1999(110) ++++ mg/dL [facility] Interpretation and review of laboratory results Normal [facility] Ketones, UA Negative Negative - 160(16) ++++ mg/dL [facility] Leukocytes, UA Negative Negative - 500+++ Virgie/mcL [facility] Nitrite, UA Negative Negative - Positive [facility] pH, UA 6.5 5 - 9 [facility] [employer] Protein, UA Negative Negative - 1999(20) ++++ mg/dL [facility] Spec Grav, UA 1.025 1 - 1.03 [facility] Urobilinogen, UA 1.0 0.2 - 12 mg/dL [facility] XR wrist LT min 3V*on 2022 XR wrist LT min 3V* [facility] [address] [place] [address] XRay Report Signed Patient: Nazia Harper MR#: [id number] 67 : 1995 Acct:[id number] Age/Sex: 26 / F ADM Date: 05/11/22 Loc: [facility] Room: Type: [facility] Attending Dr: Dee Buchanan MD Copies to: [...] Travis Jr., D.O.05/11/2022 12:18 PM Dictation Location: [place] [address] Transcribed By: [facility] 05/11/22 1218 Dictated By: Tan Travis Jr, DO 05/11/22 1217 Signed By: 05/11/22 1218 Normal [facility] XR wrist LT min 3V* [facility] [employer] Other XR wrist LT min 3V* [facility] [employer] Other XR wrist LT min 3V* [address] [place] [address] [employer] Other XR wrist LT min 3V* [place] [address] [facility] [employer] Other XR wrist LT min 3V* XRay Report [employer] Other XR wrist LT min 3V* Signed [employer] Other XR wrist LT min 3V* Patient: Nazia Harper MR#: [id number] [facility] [employer] Other XR wrist LT min 3V* 67 [employer] Other XR wrist LT min 3V* : 1995 Acct:[id number] [employer] Other XR wrist LT min 3V* Age/Sex: 26 / F ADM Date: 05/11/22 [employer] Other XR wrist LT min 3V* Loc: [facility] Room: Type: REG CLI [employer] Other XR wrist LT min 3V* Attending Dr: Dee Buchanan MD [employer] Other XR wrist LT min 3V* Copies to: Dee Buchanan MD [employer] Other XR wrist LT min 3V* Ordering Provider: Dee Buchanan MD [employer] Other XR wrist LT min 3V* Date of Service: 05/11/22 [employer] Other XR wrist LT min 3V* XR/XR wrist LT min 3V*: PAIN [employer] Other XR wrist LT min 3V* LEFT WRIST - 4 views [employer] Other XR wrist LT min 3V* CLINICAL HISTORY: Ganglion cyst posterior aspect at the level of the carpals. [employer] Other XR wrist LT min 3V* COMPARISON: None [employer] Other XR wrist LT min 3V* FINDINGS: [employer] Other XR wrist LT min 3V* No focal soft tissue abnormality is noted. No acute bony process is seen. Carpal bones appear [employer] Other XR wrist LT min 3V* unremarkable. [employer] Other XR wrist LT min 3V* XR/XR wrist LT min 3V* [employer] Other XR wrist LT min 3V* IMPRESSION: [employer] Other XR wrist LT min 3V* NO ACUTE BONY PROCESS. [employer] Other XR wrist LT min 3V* Impression dictated by: Tan Travis Jr., D.OJuanis05/11/2022 12:18 PM [employer] Other XR wrist LT min 3V* Dictation Location: [place] [address] [employer] Other XR wrist LT min 3V* Transcribed By: P[facility] 05/11/22 1218 [employer] Other XR wrist LT min 3V* Dictated By: Tan Travis Jr DO 05/11/22 [facility] [employer] Other XR wrist LT min 3V* Signed By: [employer] Other XR wrist LT min 3V* 05/11/22 [facility] [employer] Other PAP ACOG PANEL 2: 21 to 29on 08-15-2021 . . Normal [facility] Comment on above: Result Comment: Perf ormed at: BA Performed By: #### [id number] #### [facility] [address] [place] [address] Dr. Alek Fu Age Gdln ACOG Testing [facility] Comment on above: Performed By: #### [id number] #### [facility] [address] [place] [address] [address] Alek Fu DIAGNOSIS: Comment [facility] Comment on above: Result Comment: NEGA TIVE FOR INTRAEPITHELIAL LESION OR MALIGNANCY. Performed at: BA Performed By: #### 4 [id number] #### [facility] [address] [place] [address] Dr. Alek Fu Methodology: Comment [facility] Comment on above: Result Comment: This liquid based ThinPrep(R) pap test was screened with the use of an image guided system. Performed at: WB Performed By: #### 4 [id number] #### [facility] [address] [place] [address] Dr. Alek Fu Note: Comment Normal [facility] Comment on above: Result Comment: The Pap smear is a screening test designed to aid in the detection of premalignant and malignant conditions of the uterine cervix. It is not a diagnostic procedure and should not be used as the sole means of detecting cervical cancer. Both false-positive and false-negative reports do occur. . Performed at: WB Performed By: #### [id number] #### [facility] [address] [place] [address] Dr. Alek Fu Performed by: Comment Normal [facility] Comment on above: Result Comment: Elen Carrillo, Oil And Gas Superintendent ([employer]) Performed at: BA Performed By: #### [id number] #### [facility] [address] [place] [address] Dr. Alek Fu Reflex Criteria: Comment Normal [facility] Comment on above: Result Comment: The HPV DNA reflex criteria were not met with this specimen result therefore, no HPV testing was performed. . Performed at: BA Performed By: #### 4 [id number] #### [facility] [address] [place] [address] Dr. Alek Fu Specimen adequacy: Comment Normal [facility] Comment on above: Result Comment: Sati sfactory for evaluation. Endocervical and/or squamous metaplastic cells (endocervical component) are present. Performed at: BA Performed By: #### 4 [id number] #### [facility] [address] [place] [address] Dr. Alek Fu XR KNEE SABRINA 4V [...] ZURI PHOENIX Date: 2021-07-17 17:09 Normal [facility] CBC AUTO DIFFon 12-08-2020 BASO # 0.0 103/ul Normal 0.0-0.1 [facility] Comment on above: Performed By: #### C BC #### [facility] [address] [place] [address] Dr. Alek Fu Basophils/100 WBC (Bld) 0.2 % Normal 0.2-2.0 [facility] Comment on above: Performed By: #### C BC #### [facility] [address] [place] [address] Dr. Alek Fu EO # 0.0 103/ul Normal 0.0-0.7 [facility] Comment on above: Performed By: #### C BC #### [facility] [address] [place] [address] Dr. Alek Fu Eosinophils/100 WBC (Bld) 0.6 % Critically low 0.9-7.0 [facility] Comment on above: Performed By: #### C BC #### [facility] [address] [place] [address] Dr. Alek Fu Erythrocyte distribution width (RBC) [Ratio] 12.4 % Normal 11.0-15.0 [facility] Comment on above: Performed By: #### C BC #### [facility] [address] [place] [address] Dr. Alek Fu Hematocrit (Bld) [Volume fraction] 44.3 % Normal 36.0-48.0 [facility] Comment on above: Performed By: #### C BC #### [facility] [address] [place] [address] Dr. Alek Fu Hemoglobin (Bld) [Mass/Vol] 15.4 g/dL Normal 12.0-16.0 [facility] Comment on above: Performed By: #### C BC #### [facility] [address] [place] [address] Dr. Alek Fu IG # 0.04 10e3/ul Critically high 0.00-0.03 [facility] Comment on above: Performed By: #### C BC #### [facility] [address] [place] [address] Dr. Alek Fu IG % 0.6 % Critically high 0.0-0.5 [facility] Comment on above: Performed By: #### C BC #### [facility] [address] [place] [address] Dr. Alek Fu LYMPH # 3.2 103/ul Normal 1.2-3.8 [facility] Comment on above: Performed By: #### C BC #### [facility] [address] [place] [address] Dr. Alek Fu Lymphocytes/100 WBC (Bld) 50.2 % Normal 20.5-60.0 [facility] Comment on above: Performed By: #### C BC #### [facility] [address] [place] [address] Dr. Alek Fu MANUAL DIFF REQ NO Normal [facility] Comment on above: Performed By: #### C BC #### [facility] [address] [place] [address] Dr. Alek Fu MCH (RBC) [Entitic mass] 28.7 pg Normal 26.7-34.0 [facility] Comment on above: Performed By: #### C BC #### [facility] [address] [place] [address] Dr. Alek Fu MCHC (RBC) [Mass/Vol] 34.8 g/dL Normal 29.9-35.2 [facility] Comment on above: Performed By: #### C BC #### [facility] [address] [place] [address] Dr. Alek Fu MCV (RBC) [Entitic vol] 82.5 fL Normal 81.0-99.0 [facility] Comment on above: Performed By: #### C BC #### [facility] [address] [place] [address] Dr. Alek Fu MONO # 0.6 103/ul Normal 0.3-0.8 [facility] Comment on above: Performed By: #### C BC #### [facility] [address] [place] [address] Dr. Alek Fu Monocytes/100 WBC (Bld) 10.0 % Normal 1.7-12.0 [facility] Comment on above: Performed By: #### C BC #### [facility] [address] [place] [address] Dr. Alek Fu NEUT # 2.4 103/ul Normal 1.4-6.5 [facility] Comment on above: Performed By: #### C BC #### [facility] [address] [place] [address] Dr. Alek Fu Neutrophils/100 WBC (Bld) 38.4 % Critically low 43.0-75.0 [facility] Comment on above: Performed By: #### C BC #### [facility] [address] [place] [address] Dr. Alek Fu Platelet mean volume (Bld) [Entitic vol] 9.9 fL Normal 9.5-13.5 [facility] Comment on above: Performed By: #### C BC #### [facility] [address] [place] [address] Dr. Alek Fu PLT 206 103/ul Normal 150-450 [facility] Comment on above: Performed By: #### C BC #### [facility] [address] [place] [address] Dr. Alek Fu RBC 5.37 106/ul Normal 4.20-5.40 [facility] Comment on above: Performed By: #### C BC #### [facility] [address] [place] [address] Dr. Alek Fu WBC 6.3 103/ul Normal 4.0-11.0 [facility] Comment on above: Performed By: #### C BC #### [facility] [address] [place] [address] Dr. Alek Fu ER URINE PROFILEon 1 Bilirubin Ql (U) Negative Normal NEGATIVE The [facility] Comment on above: Performed By: #### E RUR #### [facility] [address] [place] [address] Dr. Alek Fu Clarity (U) CLEAR Normal CLEAR [facility] Comment on above: Performed By: #### E RUR #### [facility] [address] [place] [address] Dr. Alek Fu Color (U) YELLOW Normal YELLOW [facility] Comment on above: Performed By: #### E RUR #### [facility] [address] [place] [address] Dr. Alek Fu ERUAHD A micrscopic examination will be performed if indicated. Normal [facility] Comment on above: Performed By: #### E RUR #### [facility] [address] [place] [address] Dr. Alek Fu Glucose Ql (U) Negative Normal NEGATIVE [facility] Comment on above: Performed By: #### E RUR #### [facility] [address] [place] [address] Dr. Alek Fu Hemoglobin Ql (U) TRACE-INTACT Abnormal NEGATIVE [facility] Comment on above: Performed By: #### E RUR #### [facility] [address] [place] [address] Dr. Alek Fu Ketones Ql (U) TRACE Abnormal NEGATIVE [facility] Comment on above: Performed By: #### E RUR #### [facility] [address] [place] [address] Dr. Alek Fu LEUKOCYTES Negative Normal NEGATIVE [facility] Comment on above: Performed By: #### E RUR #### [facility] [address] [place] [address] Dr. Alek Fu Nitrite Ql (U) Negative Normal NEGATIVE [facility] Comment on above: Performed By: #### E RUR #### [facility] [address] [place] [address] Dr. Alek Fu pH (U) 6.0 [pH] Normal 5-9 [facility] Comment on above: Performed By: #### E RUR #### [facility] [address] [place] [address] Dr. Alek Fu SPEC GRAVITY 1.015 Normal 1.005-<=1.025 [facility] Comment on above: Performed By: #### E RUR #### [facility] [address] [address] [address] Alek Fu UA PROTEIN Negative Normal NEGATIVE/ TRACE [facility] Comment on above: Performed By: #### E RUR #### [facility] [address] [address] [address] Alek Fu UR MICRO IND NOT INDICATED Normal [facility] Comment on above: Performed By: #### E RUR #### [facility] [address] [place] [address] Dr. Alek Fu Urobilinogen Qn (U) 0.2 {Roya'U}/dL Normal 0.2 - 1.0 [facility] Comment on above: Performed By: #### E RUR #### [facility] [address] [place] [address] Dr. Alek Fu URon 12-08-2020 , QUAL Negative Normal NEGATIVE [facility] Comment on above: Performed By: #### P REGU #### [facility] [address] [place] [address] Dr. Alek Fu PROF CHEM 8 (BAS METB)on Anion gap [Moles/Vol] 13.0 mmol/L Normal [facility] Comment on above: Performed By: #### B MP #### [facility] [address] [place] [address] Dr. Alek Fu Calcium [Mass/Vol] 9.0 mg/dL Normal 8.4-10.2 [facility] Comment on above: Performed By: #### B MP #### [facility] [address] [place] [address] Dr. Alek Fu Chloride [Moles/Vol] 103 mmol/L Normal 98-107 [facility] Comment on above: Performed By: #### B MP #### [facility] [address] [place] [address] Dr. Alek Fu CO2 [Moles/Vol] 25.0 mmol/L Normal 22.0-30.0 The [facility] Comment on above: Performed By: #### B MP #### [facility] [address] [address] [address] Alek Fu Creatinine [Mass/Vol] 0.96 mg/dL Normal 0.52-1.04 [facility] Comment on above: Performed By: #### B MP #### [facility] [address] [address] [address] Alek Fu EGFR-AF SAMOAN >60 Normal >=60 The [facility] Comment on above: Performed By: #### B MP #### [facility] [address] [address] [address] Alek Fu EGFR-NON AF SAMOAN >60 Normal >=60 [facility] Comment on above: Performed By: #### B MP #### [facility] [address] [address] [address] Alek Fu Glucose [Mass/Vol] 99 mg/dL Normal 74-106 [facility] Comment on above: Performed By: #### B MP #### [facility] [address] [address] [address] Alek Fu Potassium [Moles/Vol] 3.0 mmol/L Critically low 3.4-5.0 [facility] Comment on above: Performed By: #### B MP #### [facility] [address] [place] [address] Dr. Alek Fu Sodium [Moles/Vol] 138 mmol/L Normal 137-145 [facility] Comment on above: Performed By: #### B MP #### [facility] [address] [address] [address] Alek Fu Urea nitrogen [Mass/Vol] 11.0 mg/dL Normal 7.0-17.0 [facility] Comment on above: Performed By: #### B MP #### [facility] [address] [place] [address] Dr. Alek Fu Urea nitrogen/Creatinin e [Mass ratio] 11.5 mg/mg Normal [facility] Comment on above: Performed By: #### B MP #### [facility] [address] [place] [address] Dr. Alek Fu Covid-19 PCR (CVDTB)on 11-19 SARS-CoV-2 (COVID-19) RNA SANTANA+probe Ql (Unsp spec) Detected Critically abnormal NOT DETECTED [facility] Comment on above: Result Comment: This test is not yet approved or cleared by the [place] FDA. When there are no FDA-approved or cleared tests available, and other criteria are met, FDA can make tests available under an emergency access mechanism called an Emergency Use Authorization (EUA). The EUA for this test is supported by the [employer] of Health and Human Service's (HHS's) declaration [...] longer be used). Performed By: #### C [facility] #### [facility] [address] [place] [address] Dr. Alek Fu Vital Signs Date Time Vital Sign Value Performing Clinician Faci lity 03-19-2024 10:38-0500 Body mass index (BMI) [Ratio] 37.68 kg/m2 Amanda ROMAN Work Phone: [facility] 03-19-2024 10:38-0500 Body weight 93.44 kg Amanda ROMAN Work Phone: [facility] 03-19-2024 10:38-0500 Diastolic blood pressure 76 mm[Hg] Amanda ROMAN Work Phone: [facility] 03-19-2024 10:38-0500 Systolic blood pressure 122 mm[Hg] Amanda ROMAN Work Phone: [facility] 03-05-2024 09:47-0500 Body mass index (BMI) [Ratio] 37.93 kg/m2 Amanda ROMAN Work Phone: [facility] 03-05-2024 09:47-0500 Body weight 94.08 kg Amanda Orange PA Work Phone: [facility] 03-05-2024 09:47-0500 Diastolic blood pressure 74 mm[Hg] Amanda Juan PA Work Phone: [facility] 03-05-2024 09:47-0500 Systolic blood pressure 110 mm[Hg] Amanda Orange PA Work Phone: [facility] 03-01-2024 11:46-0500 Body mass index (BMI) [Ratio] 37.57 kg/m2 Amanda Juan PA Work Phone: [facility] 03-01-2024 11:46-0500 Body weight 93.17 kg Amanda Orange PA Work Phone: [facility] 03-01-2024 11:46-0500 Diastolic blood pressure 90 mm[Hg] Amanda Orange PA Work Phone: [facility] 03-01-2024 11:46-0500 Systolic blood pressure 130 mm[Hg] Amanda Orange PA Work Phone: [facility] 02-20-2024 10:07-0500 [...] mass index (BMI) [Ratio] 36 kg/m2 Amanda Orange PA Work Phone: [facility] 01-17-2024 10:15-0400 Body weight 89.27 kg Amanda Juan PA Work Phone: [facility] 01-17-2024 10:15-0400 Diastolic blood pressure 70 mm[Hg] Amanda Juan PA Work Phone: [facility] 01-17-2024 10:15-0400 Systolic blood pressure 122 mm[Hg] Amanda Orange PA Work Phone: [facility] 12-20-2023 09:58-0400 Body mass index (BMI) [Ratio] 34.93 kg/m2 Amanda Orange PA Work Phone: [facility] 12-20-2023 09:58-0400 Body weight 86.64 kg Amanda Juan PA Work Phone: [facility] 12-20-2023 09:58-0400 Diastolic blood pressure 76 mm[Hg] Amanda Orange PA Work Phone: [facility] 12-20-2023 09:58-0400 Systolic blood pressure 124 mm[Hg] Amanda Juan PA Work Phone: [facility] 11-23-2023 09:47-0400 [...] 09:47-0400 Systolic blood pressure 124 mm[Hg] Lorene ROMAN Work Phone: [facility] 11-22-2023 09:29-0400 Body mass index (BMI) [Ratio] 34.41 kg/m2 Anai Jennyfer DO Work Phone: [facility] 11-22-2023 09:29-0400 Body weight 85.33 kg Anai Jennyfer DO Work Phone: [facility] 11-22-2023 09:29-0400 Diastolic blood pressure 74 mm[Hg] Anai Jennyfer DO Work Phone: [facility] 11-22-2023 09:29-0400 Systolic blood pressure 122 mm[Hg] Anai Jennyfer DO Work Phone: [facility] Encounters Encounter Date Encounter Type Care Provider Facility Start: 04-03-2024 End: 04-03-2024 Bamboo flowsheet Anai Jennyfer DO Work Phone: [facility] Start: 04-03-2024 End: 04-03-2024 Bamboo flowsheet Anai Jennyfer DO Work Phone: [facility] Start: 04-03-2024 End: 04-03-2024 flow sheet Anai Jennyfer DO Work Phone: [facility] Comment on above: Third trimester preg gregor; 35 weeks gestation of ; Heartburn during in third trimester Start: 04-03-2024 End: 04-03-2024 ambulatory ANAI JENNYFER Not Available Start: 03-19-2024 End: 03-19-2024 Bamboo flowsheet Amanda ROMAN Work Phone: [facility] Start: 03-19-2024 End: 03-19-2024 Bamboo flowsheet Amanda ROMAN Work Phone: [facility] Start: 03-19-2024 End: 03-19-2024 flow sheet Amanda ROMAN Work Phone: [facility] Comment on above: Third trimester [...] Start: 03-01-2024 End: 03-01-2024 flow sheet Amanda Martinez PA Work Phone: [...] Start: 02-20-2024 End: 02-20-2024 flow sheet Anai Burger DO Work Phone: [facility] Comment on above: Third trimester preg gregor; Excessive growth affecting management of , antepartum, single or unspecified fetus Start: 02-20-2024 End: 02-20-2024 ambulatory ANAI LIMAO Not Available Start: 01-25-2024 End: 01-25-2024 Clinisync Result Encounter Generic External Data Provider [facility] Unsolicited Start: 01-25-2024 End: 01-25-2024 Clinisync Result Encounter Generic External Data Provider [facility] Unsolicited Start: 01-17-2024 End: 01-17-2024 Bamboo flowsheet Amanda ROMAN Work Phone: [facility] Start: 01-17-2024 End: 01-17-2024 Bamboo flowsheet Amanda ROMAN Work Phone: [facility] Start: 01-17-2024 End: 01-17-2024 flow sheet Amanda ROMAN Work Phone: [facility] Comment on above: Diabetes mellitus sc reening; Second trimester ; 24 weeks gestation of Start: 01-17-2024 End: 01-17-2024 ambulatory AMANDA MARTINEZ Not Available Start: 12-20-2023 End: 12-20-2023 Bamboo flowsheet Amanda ROMAN Work Phone: [facility] Start: 12-20-2023 End: 12-20-2023 [...] Start: 11-25-2023 End: 11-25-2023 Telephone encounter Cecille Pulidotodd ROWLAND [facility] Start: 11-23-2023 End: 11-23-2023 [...] OB Start: 11-22-2023 End: 11-25-2023 Bamboo flowsheet Aani Jennyfer DO Work Phone: [facility] Start: 11-22-2023 End: 11-25-2023 Clinisync Result Encounter Generic External Data Provider [facility] Unsolicited Start: 11-22-2023 End: 11-22-2023 ambulatory ANAI JENNYFER Not Available Start: 11-22-2023 End: 11-22-2023 Patient encounter procedure Ania Jennyfer DO Work Phone: [facility] Start: 11-22-2023 End: 11-22-2023 Periodic preventive med est patient 18-39 yrs Anai Jennyfer DO Work Phone: [facility] Comment on above: Screening, , for anatomic survey; Well woman exam with routine gynecological exam; Second trimester ; Vaginal discharge; STD exposure; Mood disorder ([facility]) Start: 10-24-2023 End: 10-24-2023 ambulatory ANAI BURGER Not Available Start: 10-11-2023 End: 10-11-2023 ambulatory AMANDA MARTINEZ Not Available Start: 09-29-2023 End: 09-29-2023 ambulatory LORENE PLASENCIA Not Available Start: 09-08-2023 End: 09-08-2023 ambulatory SANGEETHA GRAY Not Available Start: 07-26-2023 End: 07-26-2023 ambulatory LORENE PLASENCIA Not Available Start: 06-16-2023 End: 06-16-2023 ambulatory LORENE PLASENCIA Not Available Start: 05-11-2022 Office outpatient ne w 45 minutes Dee Buchanan [facility] Start: 05-11-2022 End: 05-11-2022 ambulatory Dee Buchanan Facility:[facility] Start: 05-11-2022 End: 05-11-2022 ambulatory MD Dee Buchanan Work Phone: [facility] Work Phone: Start: 05-11-2022 End: 05-11-2022 Patient encounter procedure MD Dee Buchanan Work Phone: [facility] Start: 08-10-2021 End: 08-10-[address] [...] Treatment Date Care Activity Detail Author Start: 04-10-2024 End: 04-10-2024 Patient encounter procedure 04/10/2024 10:20 AM EST Routine [facility] [address] [address] Amanda Martinez PA [address] [place] [address] [facility] Start: 04-03-2024 End: 04-03-2025 CULTURE, GROUP B STREP WITH SUSCEPTIBLITY CULTURE, GROUP B STREP WITH SUSCEPTIBLITY Lab Routine Third trimester Expected: 04/03/2024, Expires: 04/03/2025 [facility] Work Phone: Comment on above: Expected: 04/03/2024 , Expires: 04/03/2025 Start: 04-03-2024 End: 04-03-2024 Patient encounter procedure 04/03/2024 10:30 AM EST Routine [facility] [address] [address] Anai Burger, DO [address] [place] [address] Arrived [facility] Comment on above: Arrived Start: 03-19-2024 End: 03-19-2024 Patient encounter procedure [facility] Comment on above: Arrived Start: 03-05-2024 End: 03-05-2024 Patient encounter procedure [facility] Comment on above: Arrived Start: 03-05-2024 End: 03-05-2024 Professional / ancillary services management 03/05/2024 9:00 AM EST Ancillary Procedure [facility] [address] [place] [address] [facility] Start: 03-01-2024 End: 03-01-2025 Alanine aminotransferase [Enzymatic activity/volume] in Serum or Plasma ALT Lab Routine induced hypertension, antepartum Expected: 03/01/2024 (Approximate), Expires: 03/01/2025 [facility] Comment on above: Expected: 03/01/2024 (Approximate), [...] unspecified fetus Expected: 02/20/2024 (Approximate), Expires: 02/19/2025 [facility] Work Phone: Comment on above: Expected: 02/20/2024 (Approximate), Expires: 02/19/2025 Start: 02-20-2024 End: 02-20-2024 Patient encounter procedure [facility] Comment on above: Arrived Start: 01-20-2024 End: 12-19-2024 US for US OB INCOMPLETE ANATOMY W US OB TRANSVAGINAL Imaging Routine Encounter for follow-up ultrasound of anatomy Expected: 01/20/2024 (Approximate), Expires: 12/19/2024 [facility] Work Phone: Comment on above: Expected: 01/20/2024 (Approximate), Expires: 12/19/2024 Start: 01-17-2024 End: 01-16-2025 CBC panel - Blood by Automated count CBC Lab Routine Diabetes mellitus screening Expected: 01/17/2024 (Approximate), Expires: 01/16/2025 [facility] Work Phone: Comment on above: Expected: 01/17/2024 [...] Procedure [facility] [address] [place] [address] [facility] Start: 12-20-2023 End: 12-20-2023 Patient encounter procedure [facility] Comment on above: Arrived Start: 12-14-2023 End: 12-14-2023 Professional / ancillary services management 12/14/2023 9:00 AM EDT Ancillary Procedure [facility] [address] [place] [address] [facility] Start: 11-22-2023 End: 05-21-2024 [...] 11-20-2023 Influenza vaccination Influenza Vacc ine (#1) [facility] CHLAMYDIA TRACHOMATI S (GENITO/STI) CHLAMYDIA TRACHOMATIS (GENITO/STI) Lab Routine STD exposure Ordered: 11/22/2023 [facility] Comment on above: Ordered: 11/22/2023 Cytology Cervical [...] Immunization Date Immunization Notes Care Provider [facility] 12-09-2019 diphtheria, tetanus toxoids and pertussis vaccine Lorene Hemmer PA Work Phone: [facility] 12-09-2019 measles, mumps and rubella virus vaccine Lorene Hemmer PA Work Phone: [facility] 05-30-2000 diphtheria, tetanus toxoids and acellular pertussis vaccine, unspecified formulation Lorene Hemmer PA Work Phone: [facility] Work Phone: 05-30-2000 measles, mumps and rubella virus vaccine Lorene Hemmer PA Work Phone: [facility] 05-30-2000 poliovirus vaccine, inactivated Lorene Hemmer PA Work Phone: [facility] 03-30-2000 influenza, seasonal, injectable Lorene Hemmer PA Work Phone: [facility] 03-30-2000 influenza virus vaccine, unspecified formulation Lorene Hemmer PA Work Phone: [facility] 09-12-1998 haemophilus influenz ae type b vaccine, conjugate unspecified formulation Lorene Hemmer PA Work Phone: [facility] 11-28-1996 diphtheria, tetanus [...] [facility] Payers Date Payer Category Payer [facility] Care O (unspecified) [id number] 2023 Private Health Insurance [id number] 2022 Private Health Insurance [id number] 2022 Self-pay 2022 Unknown [id number] 1995 Unknown [id number] 2.16.84 [id number] 1995 Unknown [id number] 2.16.84 0.1.963479.3.579.2.593 1995 Unknown [id number] 2.16.84 0.1.973137.3.579.2.593 1995 Unknown [id number] 2.16.84 0.1.206884.3.579.2.593 1995 Unknown [id number] 2.16.840.1.456774.3.579.2.1258 1995 Unknown [id number] 2.16.840.1.412056.3.579.2.1258 1995 Unknown [id number] 2.16.840.1.201687.3.579.2.1258 1995 Unknown [id number] 2.16840.1.838193.3.579.2.1258 1995 Unknown [id number] 2.16840.1.883446.3.579.2.1258 1995 Unknown [id number] 2.16.840.1.335841.3.579.2.1258 1995 Unknown [id number] 2.16.840.1.383366.3.579.2.1258 1995 Unknown [id number] 2.16840.1.359579.3.579.2.1258 1995 Unknown [id number] 2.16.840.1.053276.3.579.2.1258 1995 Unknown [id number] 2.16.840.1.393274.3.579.2.1258 1995 Unknown [id number] 2.16.840.1.553318.3.579.2.1258 1995 Unknown [id number] 2.16.840.1.747699.3.579.2.1258 1995 Unknown [id number] 2.16.840.1.250381.3.579.2.1259 1995 Unknown [id number] 2.16.840.1.897625.3.579.2.1259 1995 Unknown [id number] 2.16.840.1.370549.3.579.2.1259 1959 Unknown [id number] 1959 Unknown [id number] 1959 Unknown [id number] Unknown [id number] 2.16.840.1.324232.3.579.2.531 Social History Date Type Detail Facility Tobacco smoking stat us [facility] Unknown if ever smoked [facility] Work Phone: Start: 1995 Sex Assigned At Female [facility] Start: 09-08-2023 End: 11-23-2023 Sex Assigned At [facility] Start: 11-24-2022 Tobacco smoking status COIS Never smoked tobacco [facility] Start: 11-24-2022 Tobacco use and exposure Smokeless tobacco non-user [facility] Start: 11-23-2023 End: 04-03-2024 Alcoholic beverage intake Ex-drinker (finding) [facility] Start: 09-08-2023 End: 11-23-2023 Alcoholic beverage intake [facility] How often do you nee d to have someone help you when you read instructions, pamphlets, or other written material from your doctor or pharmacy [SILS] Never [facility] Do you belong to any clubs or organizations such as quaker groups, unions, fraternal or athletic groups, or [...] time - these days [OSQ] Rather much [facility] Start: 08-17-2022 Alcohol Comment Caffeine intake: 1-2 cups per day [facility] Start: 08-10-2023 [facility] Start: 10-18-2022 Gender identity Identifies as female gender (finding) [facility] Start: 10-18-2022 Sexual orientation Heterosexual (finding) [facility] Start: 10-24-2023 End: 11-22-2023 Alcoholic beverage intake Current drinker of alcohol (finding) [facility] Clinical Notes 05-11-2022 to 04-03-2024 Lorene Duran LPN - 04/03/2024 10:30 AM ABEL Stinson - 03/19/2024 10:10 AM ABEL Stinson - 03/05/2024 9:40 AM ABEL Stinson - 03/01/2024 11:00 AM Graeme Duran LPN - 02/20/2024 9:50 AM EST Note Date & Type Note Facility 04-03-2024 History of Presen t illness Narrative Reason [...] [Aripiprazole] Vision disturbance Cephalexin Unknown Flavoring Agent (Non-Screening) Unknown Mosquito (Diagnostic) Unknown Propofol Unknown Vraylar [...] appearance. She is well-developed. Genitourinary: Vulva normal. Cardiovascular: Rate and Rhythm: Normal rate [...] nursing note reviewed. Exam conducted with a stuffing machine operator present. Vitals: Estimated body mass index is 37.68 kg/m as calculated from the following: Height as of 11/23/23: 5' 2 . Weight as of 03/19/24: 206 lb. BP: Patient's last menstrual period was 07/27/2023. ASSESSMENT & PLAN ICD-10-CM 1. Third trimester Z34.93 POCT urinalysis dipstick manually resulted CULTURE, GROUP B STREP WITH SUSCEPTIBLITY CULTURE, GROUP B STREP WITH SUSCEPTIBLITY 2. 35 weeks gestation of Z3A.35 POCT urinalysis dipstick manually resulted Patient is doing well but has complaints of being tired and having maternal discomfort due to . Patient verbalized frequent movement and was instructed to perform kick counts three times per day. labor precautions were given, LARC consent was signed/declined, and GBS was obtained. Cervical check was performed and patient is 1cm dilated. Orders Placed This Encounter Procedures CULTURE, GROUP B STREP WITH SUSCEPTIBLITY POCT urinalysis dipstick manually resulted Follow Up: Patient is to return to office in 1 week for routine OB appointment Documented by Lorene Duran LPN on behalf of: Anai Burger DO documented in this encounter [facility] 03-19-2024 History of Presen t illness Narrative [...] floaters. Otherwise doing well today Documented by AEBL Carroll on behalf of: ABEL Carroll documented [...] nursing note reviewed. Exam conducted with a stuffing machine operator present. Vitals: Estimated body mass index [...] nursing note reviewed. Exam conducted with a stuffing machine operator present. Vitals: Estimated body mass index [...] nursing note reviewed. Exam conducted with a stuffing machine operator present. Vitals: Estimated body mass index [...] Instructed patient to wear brace for activities. Truzip Other Evaluation noteNo assessment information available [facility] Work Phone: Evaluation note* Diagnosis Encounter for follow-up ultrasound of anatomy Second trimester state, incidental 20 weeks gestation of documented in this encounter [facility]* Diagnosis Diabetes mellitus screening Screening for diabetes mellitus Second trimester state, incidental 24 weeks gestation of documented in this encounter [facility]* Diagnosis Third trimester state, incidental Excessive growth affecting management of , antepartum, single or unspecified fetus documented in this encounter [facility]* Diagnosis 31 weeks gestation of Third trimester state, incidental induced hypertension, antepartum Transient hypertension of , antepartum Hypertension affecting in third trimester Lightheadedness Dizziness and giddiness Dizziness Dizziness and giddiness documented in this encounter [facility]* Diagnosis 31 weeks gestation of [...] HealthcareEvaluation note* Diagnosis Third trimester state, incidental 35 weeks gestation of Heartburn during in third trimester documented [facility] N[facility] - Reported* Type Description Date Medical History learning disability Surgical History tymponostomy x7 Truzip Other Summary Purpose Family History No Family History Records FoundNo Family History Records FoundNo Family History Records Found Advance Directives No Advanced Directives Records FoundNo Advanced Directives Records FoundNo Advanced Directives Records Found Additional Source Comments INFORMATION SOURCE (unrecogn ized section and content) DATE CREATED AUTHOR 09/12/2021 [facility] DATE CREATED AUTHOR AUTHOR'S ORGANIZ ATION 05/21/2022 [facility] DATE CREATED AUTHOR AUTHOR'S ORGANIZ ATION 04/06/2024 [facility] d[facility] Specialists EPIC Care Teams (unrecognized sec tion and content) Team Status: Inactive Member Role Status Dates Dee Buchanan MD Attending Provider Active Sustainable Design Consultant Relationship Specialty Start Date End Date Verito Lamb MD [address] [address] PCP - General Family Medicine 10/18/22 Sustainable Design Consultant Relationship Specialty Start Date End Date Verito Lamb MD [address] [address] PCP - General Family Medicine 10/18/22 Sustainable Design Consultant Relationship Specialty Start Date End Date Verito Lamb MD [address] [place] [address] PCP - General Family Medicine 10/18/22 Sustainable Design Consultant Relationship Specialty Start Date End Date Verito Lamb MD [address] [place] [address] PCP - General Family Medicine 10/18/22 [employer] Relationship Specialty Start Date End Date Verito Lamb MD [address] [place] [address] PCP - General Family Medicine 10/18/22 [employer] Consultant Relationship Specialty Start Date End Date Verito Lamb MD [address] [place] [address] PCP - General Family Medicine 10/18/22 [employer] Consultant Relationship Specialty Start Date End Date Verito Lamb MD [address] [place] [address] PCP - General Family Medicine 10/18/22 [employer] Consultant Relationship Specialty Start Date End Date Verito Lamb MD [address] [place] [address] PCP - General Family Medicine 10/18/22 [employer] Consultant Relationship Specialty Start Date End Date Verito Lamb MD [address] [place] [address] PCP - General Family Medicine 10/18/22 [employer] Consultant Relationship Specialty Start Date End Date Verito Lamb MD [address] [place] [address] PCP - General Family Medicine 10/18/22 [employer] Consultant Relationship Specialty Start Date End Date Verito Lamb MD [address] [facility] [address] [place] [address] PCP - General [facility] 10/18/22 [employer] Consultant Relationship Specialty Start Date End Date Verito Lamb MD [address] [facility] [address] [place] [address] PCP - [facility] 10/18/22 [employer] Consultant Relationship Specialty Start Date End Date Verito Lamb MD [address] [facility] [address] [place] [address] PCP - [facility] 10/18/22 [employer] Consultant Relationship Specialty Start Date End Date Verito Lamb MD [address] [facility] [address] [place] [address] PCP - [facility] 10/18/22 Goals (unrecognized section and content) Goals [...] BE BASED ON THE PRIMARY CLINICAL RECORDS. [facility]. provides no warranty or guarantee of the accuracy or completeness of information in this document.
[2024-04-07 14:51] VITALS: BP 119/86; PULSE 67
== END 2024-04-07 15:18 | disposition home or self-care (01) ==
LOC: US 00:58 → FBC 14:27
PROVIDERS: PCP Family Medicine; Visit Provider Physician Assistant
DX: O16.3 Unspecified maternal hypertension, third trimester (principal); Z3A.36 36 weeks gestation of pregnancy
CPT/HCPCS: 76818

== ENCOUNTER 2024-04-11 00:17 | Outpatient (OUT) | payer OTHER, SELFPAY ==
--- OUTSIDE RECORDS SUMMARY | 2024-04-11 00:23 | XMS_ITS | CCD ---
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 Name Role Phone JENNYFER, DR OSPINA Admitting [...] Unavailable JUANAMANDA Attending Unavailable JUANAMANDA Attending Unavailable JUAN AMANDA Attending Unavailable ANAI BURGER Attending Unavailable Allergies Allergy Classification Reported Allergen(s) Allergy Type Date of Onset Reaction(s) Facility (1 source) Cephalexin Drug Allergy [facility] Repository (20 sources) ARIPiprazole Drug Allergy 3 [facility] Work Phone: (20 sources) cariprazine Drug Allergy 3 [facility] Healthcare (20 sources) Cephalexin Drug Allergy 3 Unknown [facility] Healthcare (20 sources) Propofol Drug Allergy 3 Unknown [facility] Healthcare (20 sources) Flavoring Agent Allergy to substance 3 Unknown [facility] Healthcare (20 sources) Mosquito (Diagnostic) Drug Allergy 3 Unknown [facility] Healthcare (7 sources) Flavoring Agent (Non-Screening) Allergy to substance 3 Unknown [facility] Healthcare Medications Current Medications Medication [...] Active labetalol hydrochloride 100 mg oral tablet (16 sources) beta-Adrenergic Adina Start: 024 End: 025 [...] omeprazole 20 mg delayed release oral capsule (6 sources) Proton Pump Inhibitor Start: 04-03-2024 End: [...] 08-18-2022 Chronic Other and delivery including normal (18 sources) Second trimester ; Translations: [Encounter for [...] [35 weeks gestation of ] 04-03-2024 Episodic Residual codes; unclassified (2 sources) Gestation period, 36 weeks; Translations: [36 weeks gestation of ] 04-10-2024 Episodic Unclassified (1 source) Pain in left [...] Test Name Value Interpretation Reference Range Facility ALL MISCELLANEOUS TESTon MISCELLANEOUS TEST COMMENT . [facility] Comment on above: Test Ordered: [id number] Strep Gp B Culture+Rflx Strep Gp B Culture+Rflx Negative CB Reference Range: Negative Centers for Disease Control and Prevention (CDC) and [place] [employer] of Obstetricians and Gynecologists (ACOG) guidelines for prevention of group B streptococcal (GBS) disease specify co-collection of a vaginal and rectal swab specimen to maximize sensitivity of GBS detection. Per the CDC and ACOG, swabbing both the lower vagina and rectum substantially increases the yield of detection compared with sampling the vagina alone. Penicillin G, ampicillin, or cefazolin are indicated for intrapartum prophylaxis of GBS colonization. Reflex susceptibility testing should be performed prior to use of clindamycin only on GBS isolates from penicillin- allergic women who are considered a high risk for anaphylaxis. Treatment with vancomycin without additional testing is warranted if resistance to clindamycin is noted. Performed at: [address] [id number] Brush Cleaner: Nadir Schaffer PhD, Phone: [phone] GROUP B STREP [id number] Group B Streptococcus Colonization Detection Culture With Re [facility] Urinalysis macro (dipstick) panel (U)on 03-19-2024 Bilirubin, UA Positive Negative - 4(70) +++ mg/dL [facility] Comment on above: small Blood, UA Positive Negative - 50 Neno/mcL [facility] Comment on above: trace Clarity, UA Cloudy [facility] re Color, UA Marilyn [facility] Glucose, UA Negative Negative - 2000(110) ++++ mg/dL [facility] Interpretation and review of laboratory results Abnormal [facility] Ketones, UA Negative Negative - 160(16) ++++ mg/dL [facility] Leukocytes, UA Trace Negative - 500+++ Virgie/mcL [facility] Nitrite, UA Negative Negative - Positive [facility] pH, UA 6 5 - 9 [facility] e Protein, UA Positive Negative - 1999(20) ++++ mg/dL [facility] Comment on above: 30 Spec Grav, UA 1.03 1 - 1.03 [facility] Urobilinogen, UA 0.2 0.2 - 12 mg/dL [facility] Urinalysis macro (dipstick) panel (U)on 03-05-2024 Bilirubin, UA Negative Negative - 4(70) +++ mg/dL [facility] Blood, UA Negative Negative - 50 Neno/mcL [facility] Clarity, UA Clear [facility] re Color, UA Yellow [facility] e Glucose, UA Negative Negative - 1999(110) ++++ mg/dL [facility] Interpretation and review of laboratory results Abnormal [facility] Ketones, UA Negative Negative - 160(16) ++++ mg/dL [facility] Leukocytes, UA Positive Negative - 500+++ Virgie/mcL [facility] Comment on above: small Nitrite, UA Negative Negative - Positive [facility] pH, UA 6 5 - 9 [facility] Com[facility] e Protein, UA Negative Negative - 1999(20) ++++ mg/dL [facility] Spec Grav, UA 1.015 1 - 1.03 [facility] Urobilinogen, UA 0.2 0.2 - 12 mg/dL [facility] APTTon 03-02-2024 aPTT Coag (Bld) [Time] 23.9 s [facility] No Panel Informationon 03-02 [facility] SRMCOH PROTHROMBIN TIME INR W/O COUMon 03-02-2024 PT Coag (PPP) [Time] 9.9 s [facility] TB INR 0.93 [facility] Com[facility] e Comment on above: DESIRED INR: 2.0-3.0 CONDITIONS NOT LISTED BELOW 2.5-3.5 FOR PROSTHETIC HEART VALVE REPLACEMENT 2.5-3.5 RECURRENT THROMBOSIS Urinalysis macro (dipstick) panel (U)on 03-01-2024 Bilirubin, UA Negative Negative - 4(70) +++ mg/dL [facility] Blood, UA Negative Negative - 50 Neno/mcL [facility] Healthcare Clarity, UA Clear [facility] Color, UA Yellow [facility] e Glucose, UA Negative Negative - 1999(110) ++++ mg/dL [facility] Interpretation and review of laboratory results Abnormal [facility] Healthca re Ketones, UA Negative Negative - 160(16) ++++ mg/dL [facility] Leukocytes, UA Positive Negative - 500+++ Virgie/mcL [facility] Comment on above: small Nitrite, UA Negative Negative - Positive [facility] pH, UA 7 5 - 9 [facility] Health[facility] e Protein, UA Trace Negative - 1999(20) ++++ mg/dL [facility] Spec Grav, UA 1.02 1 - 1.03 [facility] Urobilinogen, UA 0.2 0.2 - 12 mg/dL [facility] GLUCOSE 1 HOURon 01-25-2024 Glucose [Mass/Vol] 131 mg/dL High NINF - 13 0 mg/dL [facility] Interpretation and review of laboratory results Abnormal [facility] Healthca re [facility] e Urinalysis macro (dipstick) panel (U)on 01-17-2024 Bilirubin, UA Negative Negative - 4(70) +++ mg/dL [facility] Blood, UA Negative Negative - 50 Neno/mcL [facility] Clarity, UA Clear [facility] Healthca re Color, UA Yellow [facility] Health[facility] e Glucose, UA Negative Negative - 1999(110) ++++ mg/dL [facility] Interpretation and review of laboratory results Abnormal [facility] Healthca re Ketones, UA Negative Negative - 160(16) ++++ mg/dL [facility] Leukocytes, UA Trace Negative - 500+++ Virgie/mcL [facility] Nitrite, UA Negative Negative - Positive [facility] pH, UA 6 5 - 9 [facility] Protein, UA Negative Negative - 1999(20) ++++ mg/dL [facility] Spec Grav, UA 1.02 1 - 1.03 [facility] Urobilinogen, UA 1.0 0.2 - 12 mg/dL [facility] Urinalysis macro (dipstick) panel (U)on 12-20-2023 Bilirubin, UA Negative Negative - 4(70) +++ mg/dL [facility] Blood, UA Negative Negative - 50 Neno/mcL [facility] Clarity, UA Clear [facility] re Color, UA Yellow [facility] Healthcar e Glucose, UA Negative Negative - 1999(110) ++++ mg/dL [facility] Interpretation and review of laboratory results Abnormal [facility] re Ketones, UA Negative Negative - 160(16) ++++ mg/dL [facility] Leukocytes, UA Trace Negative - 500+++ Virgie/mcL [facility] Nitrite, UA Negative Negative - Positive [facility] pH, UA 6.5 5 - 9 [facility] Healthcar e Protein, UA Negative Negative - 1999(20) ++++ mg/dL [facility] Spec Grav, UA 1.025 1 - 1.03 [facility] Urobilinogen, UA 0.2 0.2 - 12 mg/dL [facility] AFP, SERUM, OPEN SPINA BIFID Aon 12-11-2023 AFP MOM 0.79 . [facility] Healthcar e AFP VALUE 34.7 ng/mL . [facility] Healthcar e COMMENT: Comment . [facility] Healthcar e Comment on above: Treva Gong , Ph.D., [facility] Director References: Available Upon Request. Multiples Of Median Cutoffs For AFP Elevations Banuelos 2.5 Black 2.8 IDD 2.0 Twins 4.5 Abbreviation Definitions IDD - Insulin Dep Diabetes OSBR - Open Spina Bifida Risk For further inquiries contact [employer] [facility] at [phone]. This test was developed and its performance characteristics determined by [employer]. It has not been cleared or approved by the Food and Drug Administration. Performed at: [facility] [address] [place], [place] [id number] Brush Cleaner: Maira Jones [facility], Phone: [phone] GEST. AGE ON COLLECTION DATE 19.3 . weeks [facility] GESTAT. AGE BASED ON LMP . [facility] Comment on above: Recalculations are n ot recommended when gestational dating by LMP and ultrasound are within 10 days. INSULIN DEP DIABETES No . [facility] INTERPRETATION Comment . [facility] Comment on above: Interpretation: Scre en [...] Customer Services to discuss available options. The [place] [employer] recommends amniocentesis be offered to women age 35 and older. [age] [facility] MULTIPLE GESTATION No . [facility] [address] [place] [id number] . [facility] Healt hcare RACE . [facility] Comply7 e RESULTS Report . [facility] Comply[facility] e TEST RESULTS: Negative . [facility] WEIGHT 188 . lbs [facility] Comply7 e N N LMP [id number] 6 16 N 1 Y 188 N N N N N White/ [facility] Comply[facility] e IGP,APTIMA HPV,AGE GDLNon AGE GDLN ACOG TESTING Note . [facility] Comment on above: TESTS RESULT FLAG UN ITS REF RANGE LAB Clinician Provided Cytology Information Source.............Cervix No. of containers..01 ThinPrep Vial Age Algo ACOG Madonna... FLAG LEGEND: L-Low Normal,H-High Normal,LL-Alert Low,HH-Alert High <-Panic Low,>-Panic High,A-Abnormal,AA-Critical Abnormal Performed at: 01 =G [facility] [address] [place] [address] Tierra Morales MD, IGP, RFX APTIMA HPV ASCU Note . [facility] Comment on above: TESTS RESULT FLAG UN ITS REF RANGE LAB DIAGNOSIS: 02 NEGATIVE FOR INTRAEPITHELIAL LESION OR MALIGNANCY. Specimen adequacy: 02 Satisfactory for evaluation. No endocervical component is identified. Performed by: 02 Francesca Blanc, Senior Automation Engineer ([facility]) . 02 Note: Note 02 The [...] High,A-Abnormal,AA-Critical Abnormal Performed at: 02 WB [facility] [address] [place] [address] Tierra Morales MD, Performed at: =G - [facility] [address] [id number] Brush Cleaner: Tierra Morales MD, Phone: [phone] Performed at: - [facility] [id number] Brush Cleaner: Tierra Morales MD, Phone: [phone] SPATULA-ALONE CERVIX [facility] Urinalysis macro (dipstick) panel (U)on 11-22-2023 Bilirubin, UA Negative Negative - 4(70) +++ mg/dL [facility] Blood, UA Negative Negative - 50 Neno/mcL [facility] Clarity, UA Clear [facility] Healthca re Color, UA Yellow [facility] Glucose, UA Negative Negative - 1999(110) ++++ mg/dL [facility] Interpretation and review of laboratory results Normal [facility] Healthca re Ketones, UA Negative Negative - 160(16) ++++ mg/dL [facility] Leukocytes, UA Negative Negative - 500+++ Virgie/mcL [facility] Nitrite, UA Negative Negative - Positive [facility] pH, UA 6.5 5 - 9 [facility] Protein, UA Negative Negative - 1999(20) ++++ mg/dL [facility] Spec Grav, UA 1.025 1 - 1.03 [facility] care Urobilinogen, UA 1.0 0.2 - 12 mg/dL [facility] XR wrist LT min 3V*on 2022 XR wrist LT min 3V* [facility] [place] [address] XRay Report Signed Patient: Nazia Harper MR#: [id number] 67 : 1995 Acct:[id number] Age/Sex: 26 / F ADM Date: 05/11/22 Loc: [facility] Room: Type: [facility] Attending Dr: Dee Buchanan MD Copies [...] Travis Jr., D.OJuanis05/11/2022 12:18 PM Dictation Location: [place] [address] Transcribed By: [facility] 05/11/22 1218 Dictated By: Tan Travis Jr, DO 05/11/22 1217 Signed By: 05/11/22 1218 Normal [facility] XR wrist LT min 3V* [facility] Six Degrees of Data Other XR wrist LT min 3V* [facility] [employer] Data Other XR wrist LT min 3V* [address] [place] [address] [employer] Other XR wrist LT min 3V* [place] [address] [employer] Other XR wrist LT min 3V* XRay Report [facility] Other XR wrist LT min 3V* Signed [facility] Other XR wrist LT min 3V* Patient: Nazia Harper MR#: [id number] [facility] Other XR wrist LT min 3V* 67 [employer] Other XR wrist LT min 3V* : 1995 Acct:[id number] [facility] Other XR wrist LT min 3V* Age/Sex: 26 / F ADM Date: 05/11/22 [facility] Other XR wrist LT min 3V* Loc: [facility] [place] Room: Type: [facility]ne[employer] Other XR wrist LT min 3V* Attending Dr: Dee Buchanan MD [facility] Other XR wrist LT min 3V* Copies to: Dee Buchanan MD [facility] Other XR wrist LT min 3V* Ordering Provider: Dee Buchanan MD [facility] Other XR wrist LT min 3V* Date of Service: 05/11/22 [facility] Other XR wrist LT min 3V* XR/XR wrist LT min 3V*: PAIN [facility] Other XR wrist LT min 3V* LEFT WRIST - 4 views [facility] Other XR wrist LT min 3V* CLINICAL HISTORY: Ganglion cyst posterior aspect at the level of the carpals. [facility] Other XR wrist LT min 3V* COMPARISON: None [facility] Other XR wrist LT min 3V* FINDINGS: [facility] Other XR wrist LT min 3V* No focal soft tissue abnormality is noted. No acute bony process is seen. Carpal bones appear [facility] Other XR wrist LT min 3V* unremarkable. [facility] Other XR wrist LT min 3V* XR/XR wrist LT min 3V* [facility] Other XR wrist LT min 3V* IMPRESSION: [facility]ne[facility] Other XR wrist LT min 3V* NO ACUTE BONY PROCESS. [facility] Other XR wrist LT min 3V* Impression dictated by: Tan Travis Jr., D.OJuanis05/11/2022 12:18 PM [facility] Other XR wrist LT min 3V* Dictation Location: [facility]-- Cnekt Other XR wrist LT min 3V* Transcribed By: JOSE ALEJANDRO 05/11/22 [facility]8 Cnekt Other XR wrist LT min 3V* Dictated By: Tan Travis Jr, DO 05/11/22 1217 [facility] Other XR wrist LT min 3V* Signed By: [facility]ne[employer] Other XR wrist LT min 3V* 05/11/22 1218 [facility]ne[employer] Other PAP ACOG PANEL 2: 21 to 29on 08-15-2021 . . Normal [facility] Comment on above: Result Comment: Perf ormed at: BA Performed By: #### [id number] #### [facility] [address] [place] [address] Dr. Alek Fu Age Gdln ACOG Testing [facility] Comment on above: Performed By: #### [id number] #### [facility] [address] [place] [address] Dr. Alek Fu DIAGNOSIS: Comment [facility] Comment on above: Result Comment: NEGA TIVE FOR INTRAEPITHELIAL LESION OR MALIGNANCY. Performed at: BA Performed By: #### [id number] #### [facility] [address] [place] [address] Dr. Alek Fu Methodology: Comment [facility] Comment on above: Result Comment: This liquid based ThinPrep(R) pap test was screened with the use of an image guided system. Performed at: WB Performed By: #### [id number] #### [facility] [address] [place] [address] Dr. Alek Fu Note: Comment [facility] Comment on above: Result Comment: The Pap smear is a screening test designed to aid in the detection of premalignant and malignant conditions of the uterine cervix. It is not a diagnostic procedure and should not be used as the sole means of detecting cervical cancer. Both false-positive and false-negative reports do occur. . Performed at: WB Performed By: #### [id number] #### [facility] [address] [place] [address] Dr. Alek Fu Performed by: Comment Normal [facility] Comment on above: Result Comment: Elen Carrillo, Senior Automation Engineer (ASCP) Performed at: BA Performed By: #### [id number] #### [facility] [address] [place] [address] Dr. Alek Fu Reflex Criteria: Comment Normal [facility] Comment on above: Result Comment: The HPV DNA reflex criteria were not met with this specimen result therefore, no HPV testing was performed. . Performed at: BA Performed By: #### [id number] #### [facility] [address] [place] [address] Dr. Alek Fu Specimen adequacy: Comment Normal [facility] Comment on above: Result Comment: Sati sfactory for evaluation. Endocervical and/or squamous metaplastic cells (endocervical component) are present. Performed at: BA Performed By: #### [id number] #### [facility] [address] [place] [address] Dr. Alek Fu XR KNEE SABRINA 4V [...] [place] Date: 2021-07-17 17:09 Normal [facility] CBC AUTO DIFFon 12-08-2020 BASO # 0.0 103/ul Normal 0.0-0.1 [facility] Comment on above: Performed By: #### C BC #### [facility] [address] [place] [address] Dr. Alek Fu Basophils/100 WBC (Bld) 0.2 % Normal 0.2-2.0 [facility] Comment on above: Performed By: #### C BC #### [facility] [address] [place] [address] Dr. Alek Fu EO # 0.0 103/ul Normal 0.0-0.7 [facility] Comment on above: Performed By: #### C BC #### [facility] [address] [place] [address] Dr. Alek Fu Eosinophils/100 WBC (Bld) 0.6 % Critically low 0.9-7.0 [facility] Comment on above: Performed By: #### C BC #### [facility] [address] [place] [address] Dr. Alek Fu Erythrocyte distribution width (RBC) [Ratio] 12.4 % Normal 11.0-15.0 [facility] Comment on above: Performed By: #### C BC #### [facility] [address] [place] [address] Dr. Alek Fu Hematocrit (Bld) [Volume fraction] 44.3 % Normal 36.0-48.0 [facility] Comment on above: Performed By: #### C BC #### [facility] [address] [place] [address] Dr. Alke Fu Hemoglobin (Bld) [Mass/Vol] 15.4 g/dL Normal 12.0-16.0 [facility] Comment on above: Performed By: #### C BC #### [facility] [address] [place] [address] Dr. Alek Fu IG # 0.04 10e3/ul Critically high 0.00-0.03 [facility] Comment on above: Performed By: #### C BC #### [facility] [address] [place] [address] Dr. Alek Fu IG % 0.6 % Critically high 0.0-0.5 [facility] Comment on above: Performed By: #### C BC #### [facility] [address] [place] [address] Dr. Alek Fu LYMPH # 3.2 103/ul Normal 1.2-3.8 [facility] Comment on above: Performed By: #### C BC #### [facility] [address] [place] [address] Dr. Alek Fu Lymphocytes/100 WBC (Bld) 50.2 % Normal 20.5-60.0 [facility] Comment on above: Performed By: #### C BC #### [facility] [address] [place] [address] Dr. Alek Fu MANUAL DIFF REQ NO Normal [facility] Comment on above: Performed By: #### C BC #### [facility] [address] [place] [address] Dr. Alek Fu MCH (RBC) [Entitic mass] 28.7 pg Normal 26.7-34.0 [facility] Comment on above: Performed By: #### C BC #### [facility] [address] [place] [address] Dr. Alek Fu MCHC (RBC) [Mass/Vol] 34.8 g/dL Normal 29.9-35.2 [facility] Comment on above: Performed By: #### C BC #### [facility] [address] [place] [address] Dr. Alek Fu MCV (RBC) [Entitic vol] 82.5 fL Normal 81.0-99.0 [facility] Comment on above: Performed By: #### C BC #### [facility] [address] [place] [address] Dr. Alek Fu MONO # 0.6 103/ul Normal 0.3-0.8 [facility] Comment on above: Performed By: #### C BC #### [facility] [address] [place] [address] Dr. Alek Fu Monocytes/100 WBC (Bld) 10.0 % Normal 1.7-12.0 [facility] Comment on above: Performed By: #### C BC #### [facility] [address] [place] [address] Dr. Alek Fu NEUT # 2.4 103/ul Normal 1.4-6.5 [facility] Comment on above: Performed By: #### C BC #### [facility] [address] [place] [address] Dr. Alek Fu Neutrophils/100 WBC (Bld) 38.4 % Critically low 43.0-75.0 [facility] Comment on above: Performed By: #### C BC #### [facility] [address] [place] [address] Dr. Alek Fu Platelet mean volume (Bld) [Entitic vol] 9.9 fL Normal 9.5-13.5 [facility] Comment on above: Performed By: #### C BC #### [facility] [address] [place] [address] Dr. Alek Fu PLT 206 103/ul Normal 150-450 [facility] Comment on above: Performed By: #### C BC #### [facility] [address] [place] [address] Dr. Alek Fu RBC 5.37 106/ul Normal 4.20-5.40 [facility] Comment on above: Performed By: #### C BC #### [facility] [address] [place] [address] Dr. Alek Fu WBC 6.3 103/ul Normal 4.0-11.0 [facility] Comment on above: Performed By: #### C BC #### [facility] [address] [place] [address] Dr. Alek Fu ER URINE PROFILEon 1 Bilirubin Ql (U) Negative Normal NEGATIVE [facility] Comment on above: Performed By: #### E RUR #### [facility] [address] [place] [address] Dr. Alek Fu Clarity (U) CLEAR Normal CLEAR [facility] Comment on above: Performed By: #### E RUR #### [facility] [address] [place] [address] Dr. Alek Fu Color (U) YELLOW Normal YELLOW [facility] Comment on above: Performed By: #### E RUR #### [facility] [address] [place] [address] Dr. Alek Fu ERUD A micrscopic examination will be performed if indicated. Normal [facility] Comment on above: Performed By: #### E RUR #### [facility] [address] [place] [address] Dr. Alek Fu Glucose Ql (U) Negative Normal NEGATIVE [facility] Comment on above: Performed By: #### E RUR #### [facility] [address] [place] [address] Dr. Alek Fu Hemoglobin Ql (U) TRACE-INTACT Abnormal NEGATIVE [facility] Comment on above: Performed By: #### E RUR #### [facility] [address] [place] [address] Dr. Alek Fu Ketones Ql (U) TRACE Abnormal NEGATIVE [facility] Comment on above: Performed By: #### E RUR #### [facility] [address] [place] [address] Dr. Alek Fu LEUKOCYTES Negative Normal NEGATIVE [facility] Comment on above: Performed By: #### E RUR #### [facility] [address] [place] [address] Dr. Alek Fu Nitrite Ql (U) Negative Normal NEGATIVE [facility] Comment on above: Performed By: #### E RUR #### [facility] [address] [place] [address] Dr. Alek Fu pH (U) 6.0 [pH] Normal 5-9 [facility] Comment on above: Performed By: #### E RUR #### [facility] [address] [place] [address] Dr. Alek Fu SPEC GRAVITY 1.015 Normal 1.005-<=1.[address] [facility] Comment on above: Performed By: #### E RUR #### [facility] [address] [place] [address] Dr. Alek Fu UA PROTEIN Negative Normal NEGATIVE/ TRACE [facility] Comment on above: Performed By: #### E RUR #### [facility] [address] [place] [address] Dr. Alek Fu UR MICRO IND NOT INDICATED Normal [facility] Comment on above: Performed By: #### E RUR #### [facility] [address] [place] [address] Dr. Alek Fu Urobilinogen Qn (U) 0.2 {Roya'U}/dL Normal 0.2 - 1.0 [facility] Comment on above: Performed By: #### E RUR #### [facility] [address] [place] [address] Dr. Alek Fu URon 12-08-2020 , QUAL Negative Normal NEGATIVE [facility] Comment on above: Performed By: #### P REGU #### [facility] [address] [address] [address] Alek Fu PROF CHEM 8 (BAS METB)on Anion gap [Moles/Vol] 13.0 mmol/L Normal [facility] Comment on above: Performed By: #### B MP #### [facility] [address] [address] [address] Alek Fu Calcium [Mass/Vol] 9.0 mg/dL Normal 8.4-10.2 [facility] Comment on above: Performed By: #### B MP #### [facility] [address] [address] [address] Alek Fu Chloride [Moles/Vol] 103 mmol/L Normal 98-107 [facility] Comment on above: Performed By: #### B MP #### [facility] [address] [address] [address] Alek Fu CO2 [Moles/Vol] 25.0 mmol/L Normal 22.0-30.0 [facility] Comment on above: Performed By: #### B MP #### [facility] [address] [address] [address] Alek Fu Creatinine [Mass/Vol] 0.96 mg/dL Normal 0.52-1.04 [facility] Comment on above: Performed By: #### B MP #### [facility] [address] [address] [address] Alek Fu EGFR-AF SOUTH [place]OREAN >60 Normal >=60 [facility] Comment on above: Performed By: #### B MP #### [facility] [address] [address] [address] Alek Fu EGFR-NON AF [place]ORE[place] >60 Normal >=60 [facility] Comment on above: Performed By: #### B MP #### [facility] [address] [address] [address] Alek Fu Glucose [Mass/Vol] 99 mg/dL Normal 74-[address] [facility] Comment on above: Performed By: #### B MP #### [facility] [address] [place] [address] Dr. Alek Fu Potassium [Moles/Vol] 3.0 mmol/L Critically low 3.4-5.0 [facility] Comment on above: Performed By: #### B MP #### [facility] [address] [address] [address] Alek Fu Sodium [Moles/Vol] 138 mmol/L Normal 137-[address] [facility] Comment on above: Performed By: #### B MP #### [facility] [address] [place] [address] Dr. Alek Fu Urea nitrogen [Mass/Vol] 11.0 mg/dL Normal 7.0-17.0 [facility] Comment on above: Performed By: #### B MP #### [facility] [address] [place] [address] Dr. Alek Fu Urea nitrogen/Creatinin e [Mass ratio] 11.5 mg/mg Normal [facility] Comment on above: Performed By: #### B MP #### [facility] [address] [place] [address] Dr. Alek Fu Covid-19 PCR ([facility])on 11-19 SARS-CoV-2 (COVID-19) RNA SANTANA+probe Ql (Unsp spec) Detected Critically abnormal NOT DETECTED [facility] Comment on above: Result Comment: This test is not yet approved or cleared by the [place] FDA. When there are no FDA-approved or cleared tests available, and other criteria are met, FDA can make tests available under an emergency access mechanism called an Emergency Use Authorization (EUA). The EUA for this test is supported by the [place] of Health and Human Service's (HHS's) declaration [...] used). Performed By: #### C [facility] #### [facility] [address] [place] [address] Dr. Alek Fu Vital Signs Date Time Vital Sign Value Performing Clinician Mayelin cruz 04-10-2024 10:17-0500 Body mass index (BMI) [Ratio] 39.53 kg/m2 Amanda Juan PA Work Phone: [facility] 04-10-2024 10:17-0500 Body weight 98.03 kg Amanda Juan PA Work Phone: [facility] 04-10-2024 10:17-0500 Diastolic blood pressure 76 mm[Hg] Amanda Juan PA Work Phone: [facility] 04-10-2024 10:17-0500 Systolic blood pressure 116 mm[Hg] Amanda Juan PA Work Phone: [facility] 03-19-2024 10:38-0500 Body mass index (BMI) [Ratio] 37.68 kg/m2 Amanda Juan PA Work Phone: [facility] 03-19-2024 10:38-0500 Body weight 93.44 kg Amanda Plato PA Work Phone: [facility] 03-19-2024 10:38-0500 Diastolic blood pressure 76 mm[Hg] Amanda Juan PA Work Phone: [facility] 03-19-2024 10:38-0500 Systolic blood pressure 122 mm[Hg] Amanda Plato PA Work Phone: [facility] 03-05-2024 09:47-0500 Body mass index (BMI) [Ratio] 37.93 kg/m2 Amanda Plato PA Work Phone: [facility] 03-05-2024 09:47-0500 Body weight 94.08 kg Amanda Juan PA Work Phone: [facility] 03-05-2024 09:47-0500 Diastolic blood pressure 74 mm[Hg] Amanda Plato PA Work Phone: [facility] 03-05-2024 09:47-0500 Systolic blood pressure 110 mm[Hg] Amanda Plato PA Work Phone: [facility] 03-01-2024 11:46-0500 Body mass index (BMI) [Ratio] 37.57 kg/m2 Amanda Juan PA Work Phone: [facility] 03-01-2024 11:46-0500 Body weight 93.17 kg Amanda Juan PA Work Phone: [facility] 03-01-2024 11:46-0500 Diastolic blood pressure 90 mm[Hg] Amanda Plato PA Work Phone: [facility] 03-01-2024 11:46-0500 Systolic blood pressure 130 mm[Hg] Amanda Plato PA Work Phone: [facility] 02-20-2024 10:07-0500 Body mass index (BMI) [Ratio] 37.68 kg/m2 Anai Jennyfer DO Work Phone: [facility] 02-20-2024 10:07-0500 Body weight 93.44 kg Anai Jennyfer DO Work Phone: [facility] 02-20-2024 10:07-0500 Diastolic blood pressure 80 mm[Hg] Anai Jennyfer DO Work Phone: [facility] 02-20-2024 10:07-0500 Systolic blood pressure 122 mm[Hg] Anai Jennyfer DO Work Phone: [facility] 01-17-2024 10:15-0400 Body mass index (BMI) [Ratio] 36 kg/m2 Amanda Juan PA Work Phone: [facility] 01-17-2024 10:15-0400 Body weight 89.27 kg Amanda Juan PA Work Phone: [facility] 01-17-2024 10:15-0400 Diastolic blood pressure 70 mm[Hg] Amanda Juan PA Work Phone: [facility] 01-17-2024 10:15-0400 Systolic blood pressure 122 mm[Hg] Amanda Juan PA Work Phone: [facility] 12-20-2023 09:58-0400 Body mass index (BMI) [Ratio] 34.93 kg/m2 Amanda Juan PA Work Phone: [facility] 12-20-2023 09:58-0400 Body weight 86.64 kg Amanda Plato PA Work Phone: [facility] 12-20-2023 09:58-0400 Diastolic blood pressure 76 mm[Hg] Amanda Plato PA Work Phone: [facility] 12-20-2023 09:58-0400 Systolic blood pressure 124 mm[Hg] Amanda Juan PA Work Phone: [facility] 11-23-2023 09:47-0400 Body height 157.5 cm Lorene Hemmer PA Work Phone: [facility] 11-23-2023 09:47-0400 Body mass index (BMI) [Ratio] 34.39 kg/m2 Lorene Hemmer PA Work Phone: [facility] 11-23-2023 09:47-0400 Body weight 85.28 kg Lorene Hemmer PA Work Phone: [facility] 11-23-2023 09:47-0400 Diastolic blood pressure 86 mm[Hg] Lorene Hemmer PA Work Phone: [facility] 11-23-2023 09:47-0400 Heart rate 81 /min Lorene Hemmer PA Work Phone: [facility] 11-23-2023 09:47-0400 Respiratory rate 16 /min Lorene Hemmer PA Work Phone: [facility] 11-23-2023 09:47-0400 SaO2% (BldA) [Mass fraction] 98 % Lorene Hemmer PA Work Phone: [facility] 11-23-2023 09:47-0400 Systolic blood pressure 124 mm[Hg] Lorene Hemmer PA Work Phone: [facility] 11-22-2023 09:29-0400 Body mass index (BMI) [Ratio] 34.41 kg/m2 Anai Jennyfer DO Work Phone: [facility] 11-22-2023 09:29-0400 Body weight 85.33 kg Anai Jennyfer DO Work Phone: [facility] 11-22-2023 09:29-0400 Diastolic blood pressure 74 mm[Hg] Anai Jennyfer DO Work Phone: [facility] 11-22-2023 09:29-0400 Systolic blood pressure 122 mm[Hg] Anai Jennyfer DO Work Phone: [facility] Encounters Encounter Date Encounter Type Care Provider Facility Start: 04-10-2024 End: 04-10-2024 Bamboo flowsheet Amanda ROMAN Work Phone: [facility] Start: 04-10-2024 End: 04-10-2024 Bamboo flowsheet Amanda ROMAN Work Phone: [facility] Start: 04-10-2024 End: 04-10-2024 flow sheet Amanda ROMAN Work Phone: [facility] Comment on above: Third trimester preg gregor; 36 weeks gestation of Start: 04-03-2024 End: 04-03-2024 Bamboo flowsheet Anai Jennyfer DO Work Phone: [facility] Start: 04-03-2024 End: 04-08-2024 Bamboo flowsheet Anai Jennyfer DO Work Phone: [facility] Start: 04-03-2024 End: 04-08-2024 Clinisync Result Encounter Anai Jennyfer DO Work Phone: [facility] External Department Unsolicited Start: 04-03-2024 End: 04-03-2024 flow sheet Anai Jennyfer DO Work Phone: [facility] Comment on above: Third [...] Unsolicited Start: 11-22-2023 End: 11-22-2023 ambulatory ANAI BURGER Not Available Start: 11-22-2023 End: 11-22-2023 Patient encounter procedure Anai Burger DO Work Phone: [facility] Start: 11-22-2023 End: 11-22-2023 Periodic preventive med est patient 18-39 yrs Anai Farooqo DO Work Phone: [facility] Comment on above: Screening, , for anatomic survey; Well woman exam with routine gynecological exam; Second trimester ; Vaginal discharge; STD exposure; Mood disorder ([facility]) Start: 10-24-2023 End: 10-24-2023 ambulatory [...] Start: 05-11-2022 End: 05-11-2022 ambulatory Dee Buchanan Facility:[facility] Start: 05-11-2022 End: 05-11-2022 ambulatory MD Dee Buchanan Work Phone: [facility] Work Phone: Start: 05-11-2022 End: 05-11-2022 Patient encounter procedure MD Dee Buchanan Work Phone: [facility] Start: 08-10-2021 End: 08-10-[address] ANAI BURGER Facility:[facility] Start: 07-17-2021 End: 07-18-[address] LORENE M HEMMER Facility:[facility] Start: 12-08-2020 End: 12-08-[address] VERITO LAMB Facility:[facility] Start: 12-03-2020 End: 12-03-[address] VERITO LAMB Facility:[facility] Procedures Date Procedure Procedure Detail Performing Clinician Start: 04-03-2024 ALL MISCELLANEOUS TEST Generic External Data Provider Start: 03-19-2024 Urnls dip stick/tabl et rgnt [...] Treatment Date Care Activity Detail Author Start: 04-17-2024 End: 04-17-2024 Patient encounter procedure 04/17/2024 10:50 AM EST Routine [facility] [address] [place] [id number] Anai Burger, DO [address] [place], [place] [id number] [facility] Start: 04-10-2024 End: 04-10-2024 Patient encounter procedure [facility] Comment on above: Arrived Start: 04-03-2024 End: 04-03-2025 CULTURE, GROUP B STREP WITH SUSCEPTIBLITY CULTURE, GROUP B STREP WITH SUSCEPTIBLITY Lab Routine Third trimester Expected: 04/03/2024, Expires: 04/03/2025 [facility] Work Phone: Comment on above: Expected: 04/03/2024 , Expires: 04/03/2025 Start: 04-03-2024 End: 04-03-2024 Patient encounter procedure 04/03/2024 10:30 AM EST Routine [facility] [address] [place] [id number] Anai Burger, DO [address] [place] [address] Arrived [facility] Comment on above: Arrived Start: 03-19-2024 End: 03-19-2024 Patient encounter procedure [facility] Comment on above: Arrived Start: 03-05-2024 End: 03-05-2024 Patient encounter procedure [facility] Comment on above: Arrived Start: 03-05-2024 End: 03-05-2024 Professional / ancillary services management 03/05/2024 9:00 AM EST Ancillary Procedure [facility] [address] [place] [id number] [facility] Start: 03-01-2024 End: 03-01-2025 Alanine aminotransferase [Enzymatic activity/volume] in Serum or Plasma ALT Lab Routine induced hypertension, antepartum Expected: 03/01/2024 (Approximate), Expires: 03/01/2025 [facility] Comment on above: Expected: 03/01/2024 (Approximate), Expires: 03/01/2025 Start: 03-01-2024 End: 03-01-2025 Aspartate aminotransferase [Enzymatic activity/volume] in Serum or Plasma AST Lab Routine induced hypertension, antepartum Expected: 03/01/2024 (Approximate), Expires: 03/01/2025 [facility] Comment on above: Expected: 03/01/2024 (Approximate), Expires: 03/01/2025 Start: 03-01-2024 End: 03-01-2025 CBC W Auto Differential panel - Blood CBC and differential Lab Routine induced hypertension, antepartum Expected: 03/01/2024 (Approximate), Expires: 03/01/2025 [facility] Comment on above: Expected: 03/01/2024 (Approximate), Expires: 03/01/2025 Start: 03-01-2024 End: 03-01-2025 Creatinine [Mass/volume] in Serum or Plasma Creatinine Lab Routine induced hypertension, antepartum Expected: 03/01/2024 (Approximate), Expires: 03/01/2025 [facility] Work Phone: Comment on above: Expected: 03/01/2024 (Approximate), Expires: 03/01/2025 Start: 03-01-2024 End: 03-01-2025 Lactate dehydrogenase [Enzymatic activity/volume] in Serum or Plasma by Lactate to pyruvate reaction Lactate dehydrogenase Lab Routine induced hypertension, antepartum Expected: 03/01/2024, Expires: 03/01/2025 [facility] Comment on above: Expected: 03/01/2024 , Expires: 03/01/2025 Start: 03-01-2024 End: 03-01-2025 Protein, urine, 24 hour Protein, urine, 24 hour Lab Routine induced hypertension, antepartum Expected: 03/01/2024 (Approximate), Expires: 03/01/2025 [facility] Comment on above: Expected: 03/01/2024 (Approximate), Expires: 03/01/2025 Start: 03-01-2024 End: 03-01-2025 Pt and ptt Pt and ptt Lab Routine induced hypertension, antepartum Expected: 03/01/2024, Expires: 03/01/2025 [facility] Comment on above: Expected: 03/01/2024 , Expires: 03/01/2025 Start: 03-01-2024 End: 03-01-2025 Urate [Mass/volume] in Serum or Plasma Uric acid Lab Routine induced hypertension, antepartum Expected: 03/01/2024 (Approximate), Expires: 03/01/2025 [facility] Comment on above: Expected: 03/01/2024 (Approximate), Expires: 03/01/2025 Start: 03-01-2024 End: 03-01-2025 Urea nitrogen [Mass/volume] in Serum or Plasma BUN Lab Routine induced hypertension, antepartum Expected: 03/01/2024, Expires: 03/01/2025 [facility] Comment on above: Expected: 03/01/2024 , Expires: 03/01/2025 Start: 03-01-2024 End: 03-01-2025 US biophysical profile w non stress test US biophysical profile w non stress test Imaging Routine Hypertension affecting in third trimester Lightheadedness Dizziness Expected: 03/01/2024 (Approximate), Expires: 03/01/2025 [facility] Comment on above: Expected: 03/01/2024 (Approximate), Expires: 03/01/2025 Start: 02-20-2024 End: 02-19-2025 US for US OB SCAN FOR GROWTH Imaging Routine Excessive growth affecting management of , antepartum, single or unspecified fetus Expected: 02/20/2024 (Approximate), Expires: 02/19/2025 [facility] Work Phone: Comment on above: Expected: 02/20/2024 (Approximate), Expires: 02/19/2025 Start: 02-20-2024 End: 02-20-2024 Patient encounter procedure [facility] Comment on above: Arrived Start: 01-20-2024 End: 12-19-2024 US for US OB INCOMPLETE ANATOMY W US OB TRANSVAGINAL Imaging Routine Encounter for follow-up ultrasound of anatomy Expected: 01/20/2024 (Approximate), Expires: 12/19/2024 [facility] Work Phone: Comment on above: Expected: 01/20/2024 (Approximate), Expires: 12/19/2024 Start: 01-17-2024 End: 01-16-2025 CBC panel - Blood by Automated count CBC Lab Routine Diabetes mellitus screening Expected: 01/17/2024 (Approximate), Expires: 01/16/2025 [facility] Work Phone: Comment on above: Expected: 01/17/2024 (Approximate), Expires: 01/16/2025 Start: 01-17-2024 End: 01-16-2025 Measurement of glucose 1 hour after glucose challenge for glucose tolerance test Glucose tolerance, 1 hour Lab Routine Diabetes mellitus screening Expected: 01/17/2024 (Approximate), Expires: 01/16/2025 [facility] Comment on above: Expected: 01/17/2024 (Approximate), Expires: 01/16/2025 Start: 01-17-2024 End: 01-17-2024 Patient encounter procedure [facility] Comment on above: Arrived Start: 01-17-2024 End: 01-17-2024 Professional / ancillary services management 01/17/2024 9:30 AM EDT Ancillary Procedure [facility] [address] [place] [id number] [facility] Start: 12-20-2023 End: 12-20-2023 Patient encounter procedure [facility] Comment on above: Arrived Start: 12-14-2023 End: 12-14-2023 Professional / ancillary services management 12/14/2023 9:00 AM EDT Ancillary Procedure [facility] [address] [place] [address] [facility] Start: 11-22-2023 End: 05-21-2024 Alpha fetoprotein, maternal Alpha fetoprotein, maternal Lab Routine Second trimester Expected: 11/22/2023 (Approximate), Expires: 05/21/2024 [facility] Comment on above: Expected: 11/22/2023 (Approximate), Expires: 05/21/2024 Start: 11-22-2023 End: 11-21-2024 US for US OB ANATOMY SINGLE W US OB CERVICAL LENGTH Imaging Routine Screening, , for anatomic survey Expected: 11/22/2023 (Approximate), Expires: 11/21/2024 [facility] Comment on above: Expected: 11/22/2023 (Approximate), Expires: 11/21/2024 Start: 11-20-2023 Influenza vaccination Influenza Vacc ine (#1) [facility] CHLAMYDIA TRACHOMATI S (GENITO/STI) CHLAMYDIA TRACHOMATIS (GENITO/STI) Lab Routine STD exposure Ordered: 11/22/2023 [facility] Comment on above: Ordered: 11/22/2023 Cytology Cervical or vaginal smear or scraping study Pap Smear Pathology and Cytology Routine Well woman exam with routine gynecological exam Ordered: 11/22/2023 [facility] Comment on above: Ordered: 11/22/2023 Neisseria gonorrhoea e DNA [Presence] in Unspecified specimen by SANTANA with probe detection Neisseria gonorrhea DNA probe, direct Lab Routine STD exposure Ordered: 11/22/2023 [facility] Comment on above: Ordered: 11/22/2023 SURESWAB(R) ADVANCED VAGINITIS PLUS, TMA SURESWAB(R) ADVANCED VAGINITIS PLUS, TMA Pathology and Cytology Routine Vaginal discharge Ordered: 11/22/2023 [facility] Work Phone: Comment on above: Ordered: 11/22/2023 Immunizations Immunization Date Immunization Notes Care Provider [facility] 12-09-2019 diphtheria, tetanus toxoids and pertussis vaccine Lorene ROMAN Work Phone: [facility] 12-09-2019 measles, mumps and rubella virus vaccine Lorene ROMAN Work Phone: [facility] 05-30-2000 diphtheria, tetanus toxoids and acellular pertussis vaccine, unspecified formulation Lorene ROMAN Work Phone: [facility] Work Phone: 05-30-2000 measles, mumps and rubella virus vaccine Lorene ROMAN Work Phone: [facility] 05-30-2000 poliovirus vaccine, inactivated Lorene Hemmer PA Work Phone: [facility] 03-30-2000 influenza, seasonal, injectable Lorene Hemmer PA Work Phone: [facility] 03-30-2000 influenza virus vaccine, unspecified formulation Lorene Hemmer PA Work Phone: [facility] 09-12-1998 haemophilus influenz ae type b vaccine, conjugate unspecified formulation Lorene Hemmer PA Work Phone: [facility] 11-28-1996 diphtheria, tetanus toxoids and acellular pertussis vaccine, unspecified formulation Lorene Hemmer PA Work Phone: [facility] 11-28-1996 haemophilus influenz ae type b vaccine, conjugate unspecified formulation Lorene Hemmer PA Work Phone: [facility] 11-28-1996 measles, mumps and rubella virus vaccine Lorene Hemmer PA Work Phone: [facility] 10-27-1996 trivalent poliovirus vaccine, live, oral Lorene Hemmer PA Work Phone: [facility] 01-31-1996 DTP-Haemophilus influenzae type b conjugate vaccine Lorene Hemmer PA Work Phone: [facility] 01-31-1996 hepatitis B vaccine, pediatric or pediatric/adolescent dosage Lorene Hemmer PA Work Phone: [facility] 01-31-1996 trivalent poliovirus vaccine, live, oral Lorene Hemmer PA Work Phone: [facility] 1995 DTP-Haemophilus influenzae type b conjugate vaccine Lorene Hemmer PA Work Phone: [facility] 1995 trivalent poliovirus vaccine, live, oral Lorene Hemmer PA Work Phone: [facility] 1995 DTP-Haemophilus influenzae type b conjugate vaccine Lorene Hemmer PA Work Phone: [facility] 1995 hepatitis B vaccine, pediatric or pediatric/adolescent dosage Lorene Hemmer PA Work Phone: [facility] 1995 haemophilus influenz ae type b vaccine, conjugate unspecified formulation Lorene ROMAN Work Phone: [facility] 1995 hepatitis B vaccine, pediatric or pediatric/adolescent dosage Lorene ROMAN Work Phone: [facility] Payers Date Payer Category Payer [facility] Care O (unspecified) [id number] 2023 Private Health Insurance [id number] 2022 Private Health Insurance [id number] 2022 Self-pay 2022 Unknown [id number] 1995 Unknown [id number] 2.16.84 0.1.194667.3.579.2.593 1995 Unknown [id number] 2.16.84 0.1.650277.3.579.2.593 1995 Unknown [id number] 2.16.84 0.1.350396.3.579.2.593 1995 Unknown [id number] 2.16.84 0.1.963333.3.579.2.593 1995 Unknown [id number] 2.16.840.1.298351.3.579.2.1259 1995 Unknown [id number] 2.16.840.1.018887.3.579.2.1259 1995 Unknown [id number] 2.16.840.1.656956.3.579.2.1259 1995 Unknown [id number] 2.16.840.1.707817.3.579.2.1259 1995 Unknown [id number] 2.16.840.1.361346.3.579.2.1259 1995 Unknown [id number] 2.16.840.1.269628.3.579.2.1259 1995 Unknown [id number] 2.16.840.1.056679.3.579.2.9 1995 Unknown [id number] 2.16.840.1.418815.3.579.2.1258 1995 Unknown [id number] 2.16.840.1.978955.3.579.2.1258 1995 Unknown [id number] 2.16.840.1.990013.3.579.2.1258 1995 Unknown [id number] 2.16.840.1.289869.3.579.2.1258 1995 Unknown [id number] 2.16.840.1.273085.3.579.2.1258 1995 Unknown [id number] 2.16.840.1.681854.3.579.2.1258 1995 Unknown [id number] 2.16.840.1.078332.3.579.2.1258 1995 Unknown [id number] 2.16.840.1.001389.3.579.2.9 1959 Unknown [id number] 1959 Unknown [id number] 1959 Unknown [id number] Unknown [id number] 2.16.840.1.523192.3.579.2.531 Social History Date Type Detail Facility Tobacco smoking stat us [facility] Unknown if ever smoked [facility] Work Phone: Start: 1995 Sex Assigned At Female [facility] Start: 09-08-2023 End: 11-23-2023 Sex Assigned At [facility] Start: 11-24-2022 Tobacco smoking status MOIS Never smoked tobacco [facility] Start: 11-24-2022 Tobacco use and exposure Smokeless tobacco non-user [facility] Start: 11-23-2023 End: 04-10-2024 Alcoholic beverage intake Ex-drinker (finding) [facility] Start: 09-08-2023 End: 11-23-2023 Alcoholic beverage intake [facility] How often do you nee d to have someone help you when you read instructions, pamphlets, or other written material from your doctor or pharmacy [SILS] Never [facility] Do you belong to any clubs or organizations such as restoration groups, unions, fraternal or athletic groups, or [...] (finding) [facility] Clinical Notes 05-11-2022 to 04-10-2024 ABEL Carroll - 04/10/2024 10:20 AM Graeme Duran LPN - 04/03/2024 10:30 AM ABEL Stinson - 03/19/2024 10:10 AM ABEL Stinson - 03/05/2024 9:40 AM ABEL Stinson - 03/01/2024 11:00 AM EST Note Date & Type Note Facility 04-10-2024 History of Presen t illness Narrative Reason for Appointment: Patient ID: Nazia Ruiz is a 28 y.o. female who presents for Routine Visit Patient presents today for Return OB appointment. MEDICATIONS Current Outpatient Medications Medication Instructions cetirizine (ZYRTEC) 10 mg, Daily fluticasone (Flonase) 50 MCG/ACT nasal spray 1 spray, Daily labetalol (NORMODYNE) 100 mg, Oral, 2 times daily omeprazole (PRILOSEC) 20 mg, Oral, Daily before breakfast, Do not crush or chew. MV & Min w/FA-DHA ([facility] PO) [...] reviewed. Vitals: Estimated body mass index is 39.53 kg/m as calculated from the following: Height as of 11/23/23: 5' 2 . Weight as of this encounter: 216 lb 1.9 oz. BP: 116/76 Patient's last menstrual period was 07/27/2023. ASSESSMENT & PLAN ICD-10-CM 1. Third trimester Z34.93 2. 36 weeks gestation of Z3A.36 Return OB: Patient presents today for a routine obstetrics appointment. Patient is currently 36w6d . Patient states she is doing well but has complaints of being tired due to current . Patient has verbalizes frequent movement. labor precautions was discussed/given and patient was instructed to perform kick counts three times a day. No orders of the defined types were placed in this encounter. Follow Up: Patient is to return to office in 1 week for routine OB appointment. Documented by ABEL Carroll on behalf of: ABEL Carroll documented in this encounter [facility] 04-03-2024 History of Presen t illness Narrative [...] nursing note reviewed. Exam conducted with a soda dry house operator present. Vitals: Estimated body mass index [...] Anai Burger DO documented in this encounter [facility] 03-19-2024 History of Presen t illness Narrative [...] of: ABEL Carroll documented in this encounter [facility] 03-05-2024 History of Presen t illness Narrative [...] of: ABEL Carroll documented in this encounter [facility] 03-01-2024 History of Presen t illness Narrative [...] of: ABEL Carroll documented in this encounter [facility] 02-20-2024 History of Presen t illness Narrative [...] nursing note reviewed. Exam conducted with a soda dry house operator present. Vitals: Estimated body mass index [...] Anai Burger DO documented in this encounter [facility] 01-17-2024 History of Presen t illness Narrative [...] nursing note reviewed. Exam conducted with a soda dry house operator present. Vitals: Estimated body mass index [...] of: ABEL Carroll documented in this encounter [facility] 12-20-2023 History of Presen t illness Narrative [...] of: ABEL Carroll documented in this encounter [facility] 11-25-2023 Telephone encount er Note Understood. [facility] 11-25-2023 Miscellaneous Notes Formattin g of this note might be different from the original. Understood. Nazia called stating her ob just wants her on Effexor instead of buspirone so that's what she'll be on documented in this encounter [facility] 11-25-2023 Telephone encount er Note Nazia called stating her ob just wants her on Effexor instead of buspirone so that's what she'll be on [facility] 11-23-2023 History of Presen t illness Narrative [...] Medication Follow Up. documented in this encounter [facility] 11-22-2023 History of Presen t illness Narrative [...] nursing note reviewed. Exam conducted with a soda dry house operator present. Vitals: Estimated body mass index [...] Anai Burger DO documented in this encounter [facility] 05-11-2022 Evaluation note Encounter Date Diagnosis Assessment [...] Instructed patient to wear brace for activities. Cnekt Other Evaluation noteNo assessment information available [facility] Work Phone: Evaluation note* Diagnosis Encounter [...] third trimester [facility] Diagnosis Third trimester state, incidental 36 weeks gestation of [facility] N[facility]ative - Reported* Type Description Date Medical History learning disability Surgical History tymponostomy x7 Cnekt Other Summary Purpose Family History No Family History Records FoundNo Family History Records FoundNo Family History Records Found Advance Directives No Advanced Directives Records FoundNo Advanced Directives Records FoundNo Advanced Directives Records Found Additional Source Comments INFORMATION SOURCE (unrecogn ized section and content) DATE CREATED AUTHOR 09/12/2021 [facility] DATE CREATED AUTHOR AUTHOR'S ORGANIZ ATION 05/21/2022 [facility] DATE CREATED AUTHOR AUTHOR'S ORGANIZ ATION 04/06/2024 [facility] Care Teams (unrecognized sec tion and content) Team Status: Inactive Member Role Status Dates Dee Buchanan MD Attending Provider Active [employer] Relationship Specialty Start Date End Date Verito Lamb MD [address] [facility] [address] [place] [address] PCP - General Family Medicine 10/18/22 [employer] Fe[employer] Relationship Specialty Start Date End Date Verito Lamb MD [address] [facility] [address] [place] [address] PCP - General Family Medicine 10/18/22 [employer] Feeder Relationship Specialty Start Date End Date Verito Lamb MD [address] [facility] [address] [place] [address] PCP - General Family Medicine 10/18/22 [employer] Feeder Relationship Specialty Start Date End Date Verito Lamb MD [address] [facility] [address] [place] [address] PCP - General Family Medicine 10/18/22 [employer] Feeder Relationship Specialty Start Date End Date Verito Lamb MD [address] [facility] [address] [place] [address] PCP - General Family Medicine 10/18/22 [employer] Feeder Relationship Specialty Start Date End Date Verito Lamb MD [address] [facility] [address] [place] [address] PCP - General Family Medicine 10/18/22 [employer] Feeder Relationship Specialty Start Date End Date Verito Lamb MD [address] [facility] [address] [place] [address] PCP - General Family Medicine 10/18/22 [employer] Feeder Relationship Specialty Start Date End Date Verito Lamb MD [address] [facility] [address] [place] [address] PCP - General Family Medicine 10/18/22 [employer] Feeder Relationship Specialty Start Date End Date Verito Lamb MD [address] [facility] [address] [place] [address] PCP - General Family Medicine 10/18/22 [employer] Feeder Relationship Specialty Start Date End Date Verito Lamb MD [address] [facility] [address] [place] [address] PCP - General Family Medicine 10/18/22 [employer] Feeder Relationship Specialty Start Date End Date Verito Lamb MD [address] [facility] [address] [place] [address] PCP - General Family Medicine 10/18/22 [employer] Feeder Relationship Specialty Start Date End Date Verito Lamb MD [address] [facility] [address] [place] [address] PCP - General Family Medicine 10/18/22 [employer] Feeder Relationship Specialty Start Date End Date Verito Lamb MD [address] [facility] [address] [place] [address] PCP - General Family Medicine 10/18/22 [employer] Feeder Relationship Specialty Start Date End Date Verito Lamb MD [address] [facility] [address] [place] [address] PCP - General Family Medicine 10/18/22 Goals [...] BE BASED ON THE PRIMARY CLINICAL RECORDS. [facility] [employer] provides no warranty or guarantee of the accuracy or completeness of information in this document.
[2024-04-11 11:18] VITALS: BP 141/79; PULSE 66
== END 2024-04-11 12:08 | disposition home or self-care (01) ==
LOC: FBCO 00:20 → FBC 11:12
PROVIDERS: PCP Family Medicine; Visit Provider Obstetrics & Gynecology
DX: O16.3 Unspecified maternal hypertension, third trimester (principal); R42 Dizziness and giddiness
CPT/HCPCS: 59025

== ENCOUNTER 2024-04-14 03:12 | Outpatient (OUT) | payer OTHER, SELFPAY ==
--- OUTSIDE RECORDS SUMMARY | 2024-04-14 03:15 | XMS_ITS | CCD ---
Author Organization [facility] Care Team Providers Care Lsat Instructor Name Role Phone JENNYFER, DR OSPINA Admitting [...] Unavailable Verito Lamb MD Primary Care Provider AMANDA MARTINEZ Attending Unavailable LORENE PLASENCIA Attending Unavailable HEMLORENE MANDEL Attending Unavailable SANGEETHA GRAY Attending Unavailable AMANDA MARTINEZ Attending Unavailable JENNYFERANAI Garcia Attending Unavailable JENNYFERANAI OLIVA Attending Unavailable HEMLORENE MANDEL Attending Unavailable AMANDA MARTINEZ Attending Unavailable AMANDA MARTINEZ Attending Unavailable JENNYFERANAI OLIVA Attending Unavailable AMANDA MARTINEZ Attending Unavailable AMANDA MARTINEZ Attending Unavailable AMANDA MARTINEZ Attending Unavailable ANAI BURGER Attending Unavailable Allergies Allergy Classification Reported Allergen(s) Allergy Type Date of Onset Reaction(s) Facility (1 source) Cephalexin Drug Allergy [facility] Repository (20 sources) ARIPiprazole Drug Allergy 3 [facility] Healthcare Work Phone: (20 sources) cariprazine Drug [...] H [facility]care Comment on above: Test Ordered: [id number] Strep Gp B Culture+Rflx Strep Gp B Culture+Rflx Negative CB Reference Range: Negative Centers for Disease Control and Prevention (CDC) and [place] Congress of Obstetricians and Gynecologists (ACOG) guidelines [...] resistance to clindamycin is noted. Performed at: [facility] [address] [id number] Sewer Pipe Cleaner: Nadir Schaffer PhD, Phone: [phone] GROUP B STREP [id number] Group B Streptococcus Colonization Detection Culture With Re [facility] Urinalysis macro (dipstick) panel (U)on 03-19-2024 Bilirubin, UA Positive Negative - 4(70) +++ mg/dL [facility] Comment on above: small Blood, UA Positive Negative - 50 Neno/mcL [facility] Comment on above: trace Clarity, UA Cloudy [facility] Color, UA Marilyn [facility] Glucose, UA Negative Negative - 2000(110) ++++ mg/dL [facility] Interpretation and review of laboratory results Abnormal [facility] Ketones, UA Negative Negative - 160(16) ++++ mg/dL [facility] Leukocytes, UA Trace Negative - 500+++ Virgie/mcL [facility] Nitrite, UA Negative Negative - Positive [facility] pH, UA 6 5 - 9 [facility] Healthcar e Protein, UA Positive Negative - 1999(20) ++++ mg/dL [facility] Comment on above: 30 Spec Grav, UA 1.03 1 - 1.03 [facility] Urobilinogen, UA 0.2 0.2 - 12 mg/dL [facility] Urinalysis macro (dipstick) panel (U)on 03-05-2024 Bilirubin, UA Negative Negative - 4(70) +++ mg/dL [facility] Blood, UA Negative Negative - 50 Neno/mcL [facility] Clarity, UA Clear [facility] re Color, UA Yellow [facility] e Glucose, UA Negative Negative - 1999(110) ++++ mg/dL [facility] Interpretation and review of laboratory results Abnormal [facility] re Ketones, UA Negative Negative - 160(16) ++++ mg/dL [facility] Leukocytes, UA Positive Negative - 500+++ Virgie/mcL [facility] Comment on above: small Nitrite, UA Negative Negative - Positive [facility] pH, UA 6 5 - 9 [facility] Protein, UA Negative Negative - 1999(20) ++++ mg/dL [facility] Spec Grav, UA 1.015 1 - 1.03 [facility] Urobilinogen, UA 0.2 0.2 - 12 mg/dL [facility] CCF APTTon 03-02-2024 aPTT Coag (Bld) [Time] 23.9 s [facility] No Panel Informationon 03-02 [facility] e SRMCOH PROTHROMBIN TIME INR W/O COUMon 03-02-2024 PT Coag (PPP) [Time] 9.9 s [facility] TBH INR 0.93 [facility] Healthcar e Comment on above: DESIRED INR: 2.0-3.0 CONDITIONS NOT LISTED BELOW 2.5-3.5 FOR PROSTHETIC HEART VALVE REPLACEMENT 2.5-3.5 RECURRENT THROMBOSIS Urinalysis macro (dipstick) panel (U)on 03-01-2024 Bilirubin, UA Negative Negative - 4(70) +++ mg/dL [facility] Blood, UA Negative Negative - 50 Neno/mcL [facility] Healthcare Clarity, UA Clear [facility] Color, UA Yellow [facility] Glucose, UA Negative Negative - 1999(110) ++++ mg/dL [facility] Interpretation and review of laboratory results Abnormal [facility] Ketones, UA Negative Negative - 160(16) ++++ mg/dL [facility] Healthcare Leukocytes, UA Positive Negative - 500+++ Virgie/mcL [facility] Healthcare Comment on above: small Nitrite, UA Negative Negative - Positive [facility] pH, UA 7 5 - 9 [facility] e Protein, UA Trace Negative - 1999(20) ++++ mg/dL [facility] Spec Grav, UA 1.02 1 - 1.03 [facility] care Urobilinogen, UA 0.2 0.2 - 12 mg/dL [facility] GLUCOSE 1 HOURon 01-25-2024 Glucose [Mass/Vol] 131 mg/dL High NINF - 13 0 mg/dL [facility] Interpretation and review of laboratory results Abnormal [facility]ca re [facility] Urinalysis macro (dipstick) panel (U)on 01-17-2024 Bilirubin, UA Negative Negative - 4(70) +++ mg/dL [facility] Blood, UA Negative Negative - 50 Neno/mcL [facility] Healthcare Clarity, UA Clear [facility] re Color, UA Yellow [facility] Glucose, UA Negative Negative - 1999(110) ++++ mg/dL [facility] Interpretation and review of laboratory results Abnormal [facility] Ketones, UA Negative Negative - 160(16) ++++ mg/dL [facility] Leukocytes, UA Trace Negative - 500+++ Virgie/mcL [facility] Healthcare Nitrite, UA Negative Negative - Positive [facility] pH, UA 6 5 - 9 [facility] Protein, UA Negative Negative - 1999(20) ++++ mg/dL [facility] Healthcare Spec Grav, UA 1.02 1 - 1.03 [facility] Urobilinogen, UA 1.0 0.2 - 12 mg/dL [facility] Healthcare [facility] Urinalysis macro (dipstick) panel (U)on 12-20-2023 Bilirubin, UA Negative Negative - 4(70) +++ mg/dL [facility] Blood, UA Negative Negative - 50 Neno/mcL [facility] Clarity, UA Clear [facility] Healthca re Color, UA Yellow [facility] e Glucose, UA Negative Negative - 1999(110) ++++ mg/dL [facility] Interpretation and review of laboratory results Abnormal [facility] Ketones, UA Negative Negative - 160(16) ++++ mg/dL [facility] Leukocytes, UA Trace Negative - 500+++ Virgie/mcL [facility] Nitrite, UA Negative Negative - Positive [facility] pH, UA 6.5 5 - 9 [facility] Healthcar e Protein, UA Negative Negative - 1999(20) ++++ mg/dL [facility] Spec Grav, UA 1.025 1 - 1.03 [facility] Urobilinogen, UA 0.2 0.2 - 12 mg/dL [facility] AFP, SERUM, OPEN SPINA BIFID Aon 12-11-2023 AFP MOM 0.79 . [facility] Healthcar e AFP VALUE 34.7 ng/mL . [facility] Healthcar e COMMENT: Comment . [facility] Health[facility] e Comment on above: Treva Gong , Ph.D., [facility] Director References: Available Upon Request. Multiples Of Median Cutoffs For AFP Elevations Banuelos 2.5 Black 2.8 IDD 2.0 Twins 4.5 Abbreviation Definitions IDD - Insulin Dep Diabetes OSBR - Open Spina Bifida Risk For further inquiries contact [employer] at [phone]. This test was developed and its performance characteristics determined by [employer]. It has not been cleared or approved by the Food and Drug Administration. Performed at: [facility] RTP [address] [facility], [place], [place] [id number] Sewer Pipe Cleaner: Maira Jones [facility], Phone: [phone] GEST. AGE ON COLLECTION DATE 19.3 . weeks [facility] GESTAT. AGE BASED ON LMP . [facility] Comment on above: Recalculations are n ot recommended when gestational dating by LMP and ultrasound are within 10 days. INSULIN DEP DIABETES No . [facility] INTERPRETATION Comment . [facility] Healt hcare Comment on above: Interpretation: Scre [...] Customer Services to discuss available options. The [place] [employer]st[employer] and Gynec[employer] recommends amniocentesis be offered to women age 35 and older. [age] [facility] MULTIPLE GESTATION No . [facility] [place] [id number] . [facility] Healt hcare RACE . [facility] [employer] RESULTS Report . [facility] [employer] TEST RESULTS: Negative . [facility] Noom [facility] WEIGHT 188 . lbs [facility] [employer] N N LMP [id number] [phone] N 1 Y 188 N N N N N White/ [facility] [employer] IGP,APTIMA HPV,AGE GDLNon AGE GDLN ACOG TESTING Note . [facility] Comment on above: TESTS RESULT FLAG UN ITS REF RANGE LAB Clinician Provided Cytology Information Source.............Cervix No. of containers..01 ThinPrep Vial Age Algo ACOG Madonna... FLAG LEGEND: L-Low Normal,H-High Normal,LL-Alert Low,HH-Alert High <-Panic Low,>-Panic High,A-Abnormal,AA-Critical Abnormal Performed at: 01 =G [facility] [address] [facility] [place] [address] Tierra Morales MD, IGP, RFX APTIMA HPV ASCU Note . [facility] Comment on above: TESTS RESULT FLAG UN ITS REF RANGE LAB DIAGNOSIS: 02 NEGATIVE FOR INTRAEPITHELIAL LESION OR MALIGNANCY. Specimen adequacy: 02 Satisfactory for evaluation. No endocervical component is identified. Performed by: 02 Francesca Blanc, Web Production Manager ([facility]) . 02 Note: Note 02 [...] High,A-Abnormal,AA-Critical Abnormal Performed at: 02 WB [facility] [address] [place] [address] Tierra Morales MD, Performed at: =G - [facility] [address] [id number] Sewer Pipe Cleaner: Tierra Morales MD, Phone: [phone] Performed at: - [facility] [address] [place] [id number] Sewer Pipe Cleaner: Tierra Morales MD, Phone: [phone] SPATULA-ALONE CERVIX [facility] Urinalysis macro (dipstick) panel (U)on 11-22-2023 Bilirubin, UA Negative Negative - 4(70) +++ mg/dL [facility] Blood, UA Negative Negative - 50 Neno/mcL [facility] Clarity, UA Clear [facility] re Color, UA Yellow [facility] Glucose, UA Negative Negative - 1999(110) ++++ mg/dL [facility] Interpretation and review of laboratory results Normal [facility] Healthca re Ketones, UA Negative Negative - 160(16) ++++ mg/dL [facility] Leukocytes, UA Negative Negative - 500+++ Virgie/mcL [facility] Nitrite, UA Negative Negative - Positive [facility] pH, UA 6.5 5 - 9 [facility] Protein, UA Negative Negative - 1999(20) ++++ mg/dL [facility] Spec Grav, UA 1.025 1 - 1.03 [facility] care Urobilinogen, UA 1.0 0.2 - 12 mg/dL [facility] XR wrist LT min 3V*on 2022 XR wrist LT min 3V* [facility] [place] [address] XRay Report Signed Patient: Nazia Harper MR#: [id number] : 1995 Acct:[id number] Age/Sex: 26 / F ADM Date: 05/11/22 Loc: [facility] [place] Room: Type: [facility] Attending Dr: Dee Buchaann MD Copies to: Dee Buchanan MD Ordering [...] Travis Jr., D.O.05/11/2022 12:18 PM Dictation Location: [place] [address] Transcribed By: [facility] 05/11/22 1218 Dictated By: Tan Travis Jr, DO 05/11/22 1217 Signed By: 05/11/22 1218 Normal [facility] XR wrist LT min 3V* [facility] Conject Other XR wrist LT min 3V* [facility] Con[employer] Other XR wrist LT min 3V* [address] [place] [address] [employer] Other XR wrist LT min 3V* [place] [address] [employer] Other XR wrist LT min 3V* XRay Report [employer] Other XR wrist LT min 3V* Signed [employer] Other XR wrist LT min 3V* Patient: Nazia Harper MR#: [id number] [employer] Other XR wrist LT min 3V* 67 [employer] Other XR wrist LT min 3V* : 1995 Acct:[id number] [employer] Other XR wrist LT min 3V* Age/Sex: 26 / F ADM Date: 05/11/22 [employer] Other XR wrist LT min 3V* Loc: [facility] Room: Type: [facility] [employer] Other XR wrist LT min 3V* Attending Dr: Dee Buchanan MD [employer] Other XR wrist LT min 3V* Copies to: Dee Buchanan MD [employer] Other XR wrist LT min 3V* Ordering Provider: Dee Buchanan MD [employer] Other XR wrist LT min 3V* Date of Service: 05/11/22 [employer] Other XR wrist LT min 3V* XR/XR wrist LT min 3V*: PAIN [employer] Other XR wrist LT min 3V* LEFT WRIST - 4 views [employer] Other XR wrist LT min 3V* CLINICAL HISTORY: Ganglion cyst posterior aspect at the level of the carpals. [employer] Other XR wrist LT min 3V* COMPARISON: None [employer] Other XR wrist LT min 3V* FINDINGS: [employer] Other XR wrist LT min 3V* No focal soft tissue abnormality is noted. No acute bony process is seen. Carpal bones appear [employer] Other XR wrist LT min 3V* unremarkable. [employer] Other XR wrist LT min 3V* XR/XR wrist LT min 3V* [employer] Other XR wrist LT min 3V* IMPRESSION: [employer] Other XR wrist LT min 3V* NO ACUTE BONY PROCESS. [employer] Other XR wrist LT min 3V* Impression dictated by: Tan Travis Jr., D.OJuanis05/11/2022 12:18 PM [employer] Other XR wrist LT min 3V* Dictation Location: [facility] [employer] Other XR wrist LT min 3V* Transcribed By: JOSE ALEJANDRO 05/11/22 1218 [employer] Other XR wrist LT min 3V* Dictated By: Tan Travis Jr, DO 05/11/22 1217 [employer] Other XR wrist LT min 3V* Signed By: [employer] Other XR wrist LT min 3V* 05/11/22 1218 [employer] Other PAP ACOG PANEL 2: 21 to 29on 08-15-2021 . . Normal [facility] Comment on above: Result Comment: Perf ormed at: BA Performed By: #### [id number] #### [facility] [address] [place] [address] Dr. Alek Fu Age Gdln ACOG Testing [facility] Comment on above: Performed By: #### [id number] #### [facility] [address] [place] [address] Dr. Alek Fu DIAGNOSIS: Comment [facility] Comment on above: Result Comment: NEGA TIVE FOR INTRAEPITHELIAL LESION OR MALIGNANCY. Performed at: BA Performed By: #### [id number] #### [facility] [address] [place] [address] Dr. Alek Fu Methodology: Comment [facility] Comment on above: Result Comment: This liquid based ThinPrep(R) pap test was screened with the use of an image guided system. Performed at: WB Performed By: #### [id number] #### [facility] [address] [place] [address] Dr. Alek Fu Note: Comment [facility] Comment on above: Result Comment: The Pap smear is a screening test designed to aid in the detection of premalignant and malignant conditions of the uterine cervix. It is not a diagnostic procedure and should not be used as the sole means of detecting cervical cancer. Both false-positive and false-negative reports do occur. . Performed at: WB Performed By: #### [id number] #### [facility] [address] [place] [address] Dr. Alek Fu Performed by: Comment Normal [facility] Comment on above: Result Comment: Elen Carrillo, Web Production Manager ([employer]) Performed at: BA Performed By: #### [id number] #### [facility] [address] [place] [address] Dr. Alek Fu Reflex Criteria: Comment Normal [facility] Comment on above: Result Comment: The HPV DNA reflex criteria were not met with this specimen result therefore, no HPV testing was performed. . Performed at: BA Performed By: #### [id number] #### [facility] [address] [place] [address] Dr. Alke Fu Specimen adequacy: Comment Normal [facility] Comment on above: Result Comment: Sati sfactory for evaluation. Endocervical and/or squamous metaplastic cells (endocervical component) are present. Performed at: BA Performed By: #### [id number] #### [facility] [address] [place] [address] Dr. Alek Fu XR KNEE SABRINA 4V [...] ZURI PHOENIX Date: 2021-07-17 17:09 Normal [facility] CBC AUTO DIFFon 12-08-2020 BASO # 0.0 103/ul Normal 0.0-0.1 [facility] Comment on above: Performed By: #### C BC #### [facility] [address] [place] [address] Dr. Alek Fu Basophils/100 WBC (Bld) 0.2 % Normal 0.2-2.0 [facility] Comment on above: Performed By: #### C BC #### [facility] [address] [place] [address] Dr. Alek Fu EO # 0.0 103/ul Normal 0.0-0.7 [facility] Comment on above: Performed By: #### C BC #### [facility] [address] [place] [address] [address] Alek Fu Eosinophils/100 WBC (Bld) 0.6 % Critically low 0.9-7.0 [facility] Comment on above: Performed By: #### C BC #### [facility] [address] [place] [address] Dr. Alek Fu Erythrocyte distribution width (RBC) [Ratio] 12.4 % Normal 11.0-15.0 [facility] Comment on above: Performed By: #### C BC #### [facility] [address] [place] [address] Dr. Alek Fu Hematocrit (Bld) [Volume fraction] 44.3 % Normal 36.0-48.0 [facility] Comment on above: Performed By: #### C BC #### [facility] [address] [place] [address] Dr. Alek Fu Hemoglobin (Bld) [Mass/Vol] 15.4 g/dL Normal 12.0-16.0 [facility] Comment on above: Performed By: #### C BC #### [facility] [address] [place] [address] Dr. Alek Fu IG # 0.04 10e3/ul Critically high 0.00-0.03 [facility] Comment on above: Performed By: #### C BC #### [facility] [address] [place] [address] Dr. Alek Fu IG % 0.6 % Critically high 0.0-0.5 [facility] Comment on above: Performed By: #### C BC #### [facility] [address] [place] [address] Dr. Alek Fu LYMPH # 3.2 103/ul Normal 1.2-3.8 [facility] Comment on above: Performed By: #### C BC #### [facility] [address] [place] [address] Dr. Alek Fu Lymphocytes/100 WBC (Bld) 50.2 % Normal 20.5-60.0 [facility] Comment on above: Performed By: #### C BC #### [facility] [address] [place] [address] Dr. Alek Fu MANUAL DIFF REQ NO Normal [facility] Comment on above: Performed By: #### C BC #### [facility] [address] [place] [address] Dr. Alek Fu MCH (RBC) [Entitic mass] 28.7 pg Normal 26.7-34.0 [facility] Comment on above: Performed By: #### C BC #### [facility] [address] [place] [address] Dr. Alek Fu MCHC (RBC) [Mass/Vol] 34.8 g/dL Normal 29.9-35.2 [facility] Comment on above: Performed By: #### C BC #### [facility] [address] [place] [address] Dr. Alek Fu MCV (RBC) [Entitic vol] 82.5 fL Normal 81.0-99.0 [facility] Comment on above: Performed By: #### C BC #### [facility] [address] [place] [address] Dr. Alek Fu MONO # 0.6 103/ul Normal 0.3-0.8 [facility] Comment on above: Performed By: #### C BC #### [facility] [address] [place] [address] Dr. Alek Fu Monocytes/100 WBC (Bld) 10.0 % Normal 1.7-12.0 [facility] Comment on above: Performed By: #### C BC #### [facility] [address] [place] [address] Dr. Alek Fu NEUT # 2.4 103/ul Normal 1.4-6.5 [facility] Comment on above: Performed By: #### C BC #### [facility] [address] [place] [address] Dr. Alek Fu Neutrophils/100 WBC (Bld) 38.4 % Critically low 43.0-75.0 [facility] Comment on above: Performed By: #### C BC #### [facility] [address] [place] [address] Dr. Alek Fu Platelet mean volume (Bld) [Entitic vol] 9.9 fL Normal 9.5-13.5 [facility] Comment on above: Performed By: #### C BC #### [facility] [address] [place] [address] Dr. Alek Fu PLT 206 103/ul Normal 150-450 [facility] Comment on above: Performed By: #### C BC #### [facility] [address] [place] [address] Dr. Alek Fu RBC 5.37 106/ul Normal 4.20-5.40 [facility] Comment on above: Performed By: #### C BC #### [facility] [address] [place] [address] Dr. Alek Fu WBC 6.3 103/ul Normal 4.0-11.0 [facility] Comment on above: Performed By: #### C BC #### [facility] [address] [place] [address] Dr. Alek Fu ER URINE PROFILEon 1 Bilirubin Ql (U) Negative Normal NEGATIVE [facility] Comment on above: Performed By: #### E RUR #### [facility] [address] [place] [address] Dr. Alek Fu Clarity (U) CLEAR Normal CLEAR [facility] Comment on above: Performed By: #### E RUR #### [facility] [address] [place] [address] Dr. Alek Fu Color (U) YELLOW Normal YELLOW [facility] Comment on above: Performed By: #### E RUR #### [facility] [address] [place] [address] Dr. Alek Fu ERUAHD A micrscopic examination will be performed if indicated. Normal [facility] Comment on above: Performed By: #### E RUR #### [facility] [address] [place] [address] Dr. Alek Fu Glucose Ql (U) Negative Normal NEGATIVE [facility] Comment on above: Performed By: #### E RUR #### [facility] [address] [place] [address] Dr. Alek Fu Hemoglobin Ql (U) TRACE-INTACT Abnormal NEGATIVE [facility] Comment on above: Performed By: #### E RUR #### [facility] [address] [place] [address] Dr. Alek Fu Ketones Ql (U) TRACE Abnormal NEGATIVE [facility] Comment on above: Performed By: #### E RUR #### [facility] [address] [place] [address] Dr. Alek Fu LEUKOCYTES Negative Normal NEGATIVE [facility] Comment on above: Performed By: #### E RUR #### [facility] [address] [place] [address] Dr. Alek Fu Nitrite Ql (U) Negative Normal NEGATIVE [facility] Comment on above: Performed By: #### E RUR #### [facility] [address] [place] [address] Dr. Alek Fu pH (U) 6.0 [pH] Normal 5-9 [facility] Comment on above: Performed By: #### E RUR #### [facility] [address] [place] [address] Dr. Alek Fu SPEC GRAVITY 1.015 Normal 1.005-<=1.025 [facility] Comment on above: Performed By: #### E RUR #### [facility] [address] [place] [address] Dr. Alek Fu UA PROTEIN Negative Normal NEGATIVE/ TRACE [facility] Comment on above: Performed By: #### E RUR #### [facility] [address] [place] [address] Dr. Alek Fu UR MICRO IND NOT INDICATED Normal [facility] Comment on above: Performed By: #### E RUR #### [facility] [address] [place] [address] Dr. Alek Fu Urobilinogen Qn (U) 0.2 {Roya'U}/dL Normal 0.2 - 1.0 [facility] Comment on above: Performed By: #### E RUR #### [facility] [address] [address] [address] Alek Fu URon 12-08-2020 , QUAL Negative Normal NEGATIVE [facility] Comment on above: Performed By: #### P REGU #### [facility] [address] [place] [address] Dr. Alek Fu PROF CHEM 8 (BAS METB)on Anion gap [Moles/Vol] 13.0 mmol/L Normal [facility] Comment on above: Performed By: #### B MP #### [facility] [address] [address] [address] Alek Fu Calcium [Mass/Vol] 9.0 mg/dL Normal 8.4-10.2 [facility] Comment on above: Performed By: #### B MP #### [facility] [address] [place] [address] Dr. Alek Fu Chloride [Moles/Vol] 103 mmol/L Normal 98-107 [facility] Comment on above: Performed By: #### B MP #### [facility] [address] [place] [address] Dr. Alek Fu CO2 [Moles/Vol] 25.0 mmol/L Normal 22.0-30.0 [facility] Comment on above: Performed By: #### B MP #### [facility] [address] [place] [address] Dr. Alek Fu Creatinine [Mass/Vol] 0.96 mg/dL Normal 0.52-1.04 [facility] Comment on above: Performed By: #### B MP #### [facility] [address] [place] [address] Dr. Alek Fu EGFR-AF BENINESE >60 Normal >=60 [facility] Comment on above: Performed By: #### B MP #### [facility] [address] [place] [address] Dr. Alek Fu EGFR-NON AF BENINESE >60 Normal >=60 [facility] Comment on above: Performed By: #### B MP #### [facility] [address] [place] [address] Dr. Alek Fu Glucose [Mass/Vol] 99 mg/dL Normal 74-106 [facility] Comment on above: Performed By: #### B MP #### [facility] [address] [address] [address] Alek Fu Potassium [Moles/Vol] 3.0 mmol/L Critically low 3.4-5.0 [facility] Comment on above: Performed By: #### B MP #### [facility] [address] [address] [address] Alek Fu Sodium [Moles/Vol] 138 mmol/L Normal 137-145 [facility] Comment on above: Performed By: #### B MP #### [facility] [address] [address] [address] Alek Fu Urea nitrogen [Mass/Vol] 11.0 mg/dL Normal 7.0-17.0 [facility] Comment on above: Performed By: #### B MP #### [facility] [address] [address] [address] Alek Fu Urea nitrogen/Creatinin e [Mass ratio] 11.5 mg/mg Normal [facility] Comment on above: Performed By: #### B MP #### [facility] [address] [address] [address] Alek [facility] SARS-CoV-2 (COVID-19) RNA SANTANA+probe Ql (Unsp spec) Detected Critically abnormal NOT DETECTED [facility] Comment on above: Result Comment: This test is not yet approved or cleared by the [place] FDA. When there are no FDA-approved or cleared tests available, and other criteria are met, FDA can make tests available under an emergency access mechanism called an Emergency Use Authorization (EUA). The EUA for this test is supported by the Rapid Transit Operator of Health and Human Service's (HHS's) [...] used). Performed By: #### C [facility] #### [facility] [address] [place] [address] Dr. Alek Fu Vital Signs Date Time Vital Sign Value Performing Clinician Mayelin cruz 04-10-2024 10:17-0500 Body mass index (BMI) [Ratio] 39.53 kg/m2 Amanda Centerville PA Work Phone: [facility] 04-10-2024 10:17-0500 Body weight 98.03 kg Amanda Centerville PA Work Phone: [facility] 04-10-2024 10:17-0500 Diastolic blood pressure 76 mm[Hg] Amanda Alesia PA Work Phone: [facility] 04-10-2024 10:17-0500 Systolic blood pressure 116 mm[Hg] Amanda Centerville PA Work Phone: [facility] 03-19-2024 10:38-0500 Body mass index (BMI) [Ratio] 37.68 kg/m2 Amanda Alesia PA Work Phone: [facility] 03-19-2024 10:38-0500 Body weight 93.44 kg Amanda Alesia PA Work Phone: [facility] 03-19-2024 10:38-0500 Diastolic blood pressure 76 mm[Hg] Amanda Centerville PA Work Phone: [facility] 03-19-2024 10:38-0500 Systolic blood pressure 122 mm[Hg] Amanda Alesia PA Work Phone: [facility] 03-05-2024 09:47-0500 Body mass index (BMI) [Ratio] 37.93 kg/m2 Amanda Centerville PA Work Phone: [facility] 03-05-2024 09:47-0500 Body weight 94.08 kg Amanda Cent[place] PA Work Phone: [facility] 03-05-2024 09:47-0500 Diastolic blood pressure 74 mm[Hg] Amanda Alesia PA Work Phone: [facility] 03-05-2024 09:47-0500 Systolic blood pressure 110 mm[Hg] Amanda Centerville PA Work Phone: [facility] 03-01-2024 11:46-0500 Body mass index (BMI) [Ratio] 37.57 kg/m2 Amanda [place] PA Work Phone: [facility] 03-01-2024 11:46-0500 Body weight 93.17 kg Amanda Alesia PA Work Phone: [facility] 03-01-2024 11:46-0500 Diastolic blood pressure 90 mm[Hg] Amanda Alesia PA Work Phone: [facility] 03-01-2024 11:46-0500 Systolic blood pressure 130 mm[Hg] Amanda Alesia PA Work Phone: [facility] 02-20-2024 10:07-0500 Body mass index (BMI) [Ratio] 37.68 kg/m2 Anai Jennyfer DO Work Phone: [facility] 02-20-2024 10:07-0500 Body weight 93.44 kg Anai Jennyfer DO Work Phone: [facility] 02-20-2024 10:07-0500 Diastolic blood pressure 80 mm[Hg] Anai Jennyfer DO Work Phone: [facility] 02-20-2024 10:07-0500 Systolic blood pressure 122 mm[Hg] Anai Jennyfer DO Work Phone: [facility] 01-17-2024 10:15-0400 Body mass index (BMI) [Ratio] 36 kg/m2 Amanda Alesia PA Work Phone: [facility] 01-17-2024 10:15-0400 Body weight 89.27 kg Amanda Alesia PA Work Phone: [facility] 01-17-2024 10:15-0400 Diastolic blood pressure 70 mm[Hg] Amanda Alesia PA Work Phone: [facility] 01-17-2024 10:15-0400 Systolic blood pressure 122 mm[Hg] Amanda Centerville PA Work Phone: [facility] 12-20-2023 09:58-0400 Body mass index (BMI) [Ratio] 34.93 kg/m2 Amanda Alesia PA Work Phone: [facility] 12-20-2023 09:58-0400 Body weight 86.64 kg Amanda Alesia PA Work Phone: [facility] 12-20-2023 09:58-0400 Diastolic blood pressure 76 mm[Hg] Amanda Centerville PA Work Phone: [facility] 12-20-2023 09:58-0400 Systolic blood pressure 124 mm[Hg] Amanda Centerville PA Work Phone: [facility] 11-23-2023 09:47-0400 Body height 157.5 cm Lorene Hemmer PA Work Phone: [facility] 11-23-2023 09:47-0400 Body mass index (BMI) [Ratio] 34.39 kg/m2 Lorene Hemmer PA Work Phone: [facility] 11-23-2023 09:47-0400 Body weight 85.28 kg Lorene Hemmer PA Work Phone: [facility] 11-23-2023 09:47-0400 Diastolic blood pressure 86 mm[Hg] Lorene Hemmer PA Work Phone: [facility] 11-23-2023 09:47-0400 Heart rate 81 /min Lorene Hemmer PA Work Phone: [facility] 11-23-2023 09:47-0400 Respiratory rate 16 /min Lorene Hemmer PA Work Phone: [facility] 11-23-2023 09:47-0400 SaO2% (BldA) [Mass fraction] 98 % Lorene Hemmer PA Work Phone: [facility] 11-23-2023 09:47-0400 Systolic blood pressure 124 mm[Hg] Lorene Hemmer PA Work Phone: [facility] 11-22-2023 09:29-0400 Body mass index (BMI) [...] 122 mm[Hg] Anai Jennyfer DO Work Phone: [facility] Healthcare Encounters Encounter Date Encounter Type Care Provider Facility Start: 04-10-2024 End: 04-10-2024 Bamboo flowsheet Amanda ROMAN Work Phone: [facility] Start: 04-10-2024 End: 04-10-2024 Bamboo flowsheet Amanda ROMAN Work Phone: [facility] Start: 04-10-2024 End: 04-10-2024 flow sheet Amanda ROMAN Work Phone: [facility] Comment on above: Third trimester preg gregor; 36 weeks gestation of Start: 04-10-2024 End: 04-10-2024 ambulatory AMANDA MARTINEZ Not Available Start: 04-03-2024 End: 04-03-2024 Bamboo flowsheet Anai Jennyfer DO Work Phone: [facility] Start: 04-03-2024 End: 04-08-2024 Bamboo flowsheet Anai Jennyfer DO Work Phone: [facility] Start: 04-03-2024 End: 04-08-2024 Clinisync Result Encounter Anai Jennyfer DO Work Phone: [facility] External Department Unsolicited Start: 04-03-2024 End: 04-03-2024 flow sheet Anai Jennyfer DO Work Phone: [facility] Comment on above: Third trimester preg gregor; 35 weeks gestation of ; Heartburn during in third trimester Start: 04-03-2024 End: 04-03-2024 ambulatory ANAI BURGER Not Available Start: 03-19-2024 End: 03-19-2024 Bamboo [...] 03-01-2024 flow sheet Amanda ROMAN Work Phone: [facility] Comment on above: 31 weeks gestation o f ; Third trimester ; induced hypertension, antepartum; Hypertension affecting in third trimester; Lightheadedness; Dizziness Start: 02-20-2024 End: 02-20-2024 Bamboo flowsheet Anai Jennyfer DO Work Phone: [facility] Start: 02-20-2024 End: 02-20-2024 Bamboo flowsheet Anai Jennyfer DO Work Phone: [facility] Start: 02-20-2024 End: 02-20-2024 flow sheet Anai Jennyfer DO Work Phone: [facility] Comment on above: Third [...] 01-17-2024 Bamboo flowsheet Amanda ROMAN Work Phone: [facility] Start: 01-17-2024 End: 01-17-2024 [...] ; Vaginal discharge; STD exposure; Mood disorder ([facility] Start: 10-24-2023 End: 10-24-2023 ambulatory ANAI JENNYFER Not Available Start: 10-11-2023 End: 10-11-2023 ambulatory AMANDA MARTINEZ Not Available Start: 09-29-2023 End: 09-29-2023 ambulatory AMANDA MARTINEZ Not Available Start: 09-08-2023 End: 09-08-2023 ambulatory SANGEETHA M ISAAC Not Available Start: 07-26-2023 End: 07-26-2023 ambulatory LORENE PLASENCIA Not Available Start: 06-16-2023 End: 06-16-2023 ambulatory LORENE PLASENCIA Not Available Start: 05-11-2022 Office outpatient ne w 45 minutes [facility] Start: 05-11-2022 End: 05-11-2022 ambulatory Dee Buchanan Facility:[facility] Start: 05-11-2022 End: 05-11-2022 ambulatory MD Dee Buchanan Work Phone: [facility] Work Phone: Start: 05-11-2022 End: 05-11-2022 Patient encounter procedure MD Dee Buchanan Work Phone: [facility] Start: 08-10-2021 End: 08-10-2021 [...] AM EST Routine [facility] [address] [place] [place] [id number] Anai Burger, DO [address] [place], [place] [id number] [facility] Start: 04-10-2024 End: 04-10-2024 [...] AM EST Routine [facility] [address] [place] [place] [id number] Anai Burger, DO [address] [place] [address] Arrived [facility] Comment on above: Arrived Start: 03-19-2024 End: 03-19-2024 Patient encounter procedure [facility] Comment on above: Arrived Start: 03-05-2024 End: 03-05-2024 Patient encounter procedure [facility] Comment on above: Arrived Start: 03-05-2024 End: 03-05-2024 Professional / ancillary services management 03/05/2024 9:00 AM EST Ancillary Procedure [facility] [address] [place] [address] [facility] Start: 03-01-2024 End: 03-01-2025 Alanine aminotransferase [Enzymatic activity/volume] in Serum or Plasma ALT Lab Routine induced hypertension, antepartum Expected: 03/01/2024 (Approximate), Expires: 03/01/2025 [facility] Comment on above: Expected: 03/01/2024 (Approximate), Expires: 03/01/2025 Start: 03-01-2024 End: 03-01-2025 Aspartate aminotransferase [Enzymatic activity/volume] in Serum or Plasma AST Lab Routine induced hypertension, antepartum Expected: 03/01/2024 (Approximate), Expires: 03/01/2025 [facility] Comment on above: Expected: 03/01/2024 (Approximate), Expires: 03/01/2025 Start: 03-01-2024 End: 03-01-2025 CBC W Auto Differential panel - Blood CBC and differential Lab Routine induced hypertension, antepartum Expected: 03/01/2024 (Approximate), Expires: 03/01/2025 [facility] Comment on above: Expected: 03/01/2024 (Approximate), Expires: 03/01/2025 Start: 03-01-2024 End: 03-01-2025 Creatinine [Mass/volume] in Serum or Plasma Creatinine Lab Routine induced hypertension, antepartum Expected: 03/01/2024 (Approximate), Expires: 03/01/2025 [facility] Work Phone: Comment on above: Expected: 03/01/2024 (Approximate), Expires: 03/01/2025 Start: 03-01-2024 End: 03-01-2025 Lactate dehydrogenase [Enzymatic activity/volume] in Serum or Plasma by Lactate to pyruvate reaction Lactate dehydrogenase Lab Routine induced hypertension, antepartum Expected: 03/01/2024, Expires: 03/01/2025 [facility] Comment on above: Expected: 03/01/2024 , Expires: 03/01/2025 Start: 03-01-2024 End: 03-01-2025 Protein, urine, 24 hour Protein, urine, 24 hour Lab Routine induced hypertension, antepartum Expected: 03/01/2024 (Approximate), Expires: 03/01/2025 [facility] Healthcare Comment on above: Expected: 03/01/2024 (Approximate), Expires: 03/01/2025 Start: 03-01-2024 End: 03-01-2025 Pt and ptt Pt and ptt Lab Routine induced hypertension, antepartum Expected: 03/01/2024, Expires: 03/01/2025 [facility] Comment on above: Expected: 03/01/2024 , Expires: 03/01/2025 Start: 03-01-2024 End: 03-01-2025 Urate [Mass/volume] in Serum or Plasma Uric acid Lab Routine induced hypertension, antepartum Expected: 03/01/2024 (Approximate), Expires: 03/01/2025 [facility] Comment on above: Expected: 03/01/2024 (Approximate), Expires: 03/01/2025 Start: 03-01-2024 End: 03-01-2025 Urea nitrogen [Mass/volume] in Serum or Plasma BUN Lab Routine induced hypertension, antepartum Expected: 03/01/2024, Expires: 03/01/2025 [facility] Comment on above: Expected: 03/01/2024 , Expires: 03/01/2025 Start: 03-01-2024 End: 03-01-2025 US biophysical profile w non stress test US biophysical profile w non stress test Imaging Routine Hypertension affecting in third trimester Lightheadedness Dizziness Expected: 03/01/2024 (Approximate), Expires: 03/01/2025 [facility] Comment on above: Expected: 03/01/2024 (Approximate), Expires: 03/01/2025 Start: 02-20-2024 End: 02-19-2025 US for US OB SCAN FOR GROWTH Imaging Routine Excessive growth affecting management of , antepartum, single or unspecified fetus Expected: 02/20/2024 (Approximate), Expires: 02/19/2025 [facility] Work Phone: Comment on above: Expected: 02/20/2024 (Approximate), Expires: 02/19/2025 Start: 02-20-2024 End: 02-20-2024 Patient encounter procedure [facility] Comment on above: Arrived Start: 01-20-2024 End: 12-19-2024 US for US OB INCOMPLETE ANATOMY W US OB TRANSVAGINAL Imaging Routine Encounter for follow-up ultrasound of anatomy Expected: 01/20/2024 (Approximate), Expires: 12/19/2024 [facility] Healthcare Work Phone: Comment on above: [...] [facility] [address] [place] [id number] [facility] Start: 12-20-2023 End: 12-20-2023 Patient encounter procedure [facility] Comment on above: Arrived Start: 12-14-2023 End: 12-14-2023 Professional / ancillary services management 12/14/2023 9:00 AM EDT Ancillary Procedure [facility] [address] [place] [id number] [facility] Start: 11-22-2023 End: 05-21-2024 Alpha fetoprotein, maternal Alpha fetoprotein, maternal Lab Routine Second trimester Expected: 11/22/2023 (Approximate), Expires: 05/21/2024 [facility] Comment on above: Expected: 11/22/2023 (Approximate), Expires: 05/21/2024 Start: 11-22-2023 End: 11-21-2024 US for US OB ANATOMY SINGLE W US OB CERVICAL LENGTH Imaging Routine Screening, , for anatomic survey Expected: 11/22/2023 (Approximate), Expires: 11/21/2024 [facility] Comment on above: Expected: 11/22/2023 (Approximate), Expires: 11/21/2024 Start: 11-20-2023 Influenza vaccination Influenza Vacc ine (#1) [facility] CHLAMYDIA TRACHOMATI S (GENITO/STI) CHLAMYDIA TRACHOMATIS (GENITO/STI) Lab Routine STD exposure Ordered: 11/22/2023 [facility] Comment on above: Ordered: 11/22/2023 Cytology Cervical or vaginal smear or scraping study Pap Smear Pathology and Cytology Routine Well woman exam with routine gynecological exam Ordered: 11/22/2023 [facility] Comment on above: Ordered: 11/22/2023 Neisseria gonorrhoea e DNA [Presence] in Unspecified specimen by SANTANA with probe detection Neisseria gonorrhea DNA probe, direct Lab Routine STD exposure Ordered: 11/22/2023 [facility] Comment on above: Ordered: 11/22/2023 SURESWAB(R) ADVANCED VAGINITIS PLUS, TMA SURESWAB(R) ADVANCED VAGINITIS PLUS, TMA Pathology and Cytology Routine Vaginal discharge Ordered: 11/22/2023 [facility] Work Phone: Comment on above: Ordered: 11/22/2023 Immunizations Immunization Date Immunization Notes Care Provider Fa cility 12-09-2019 diphtheria, tetanus toxoids and pertussis vaccine Lorene ROMAN Work Phone: [facility] 12-09-2019 measles, mumps and rubella virus vaccine Lorene ROMAN Work Phone: [facility] 05-30-2000 diphtheria, tetanus toxoids and acellular pertussis vaccine, unspecified formulation Lorene ROMAN Work Phone: [facility] Work Phone: 05-30-2000 measles, mumps and rubella virus vaccine Lorene Hemmer PA Work Phone: [facility] 05-30-2000 poliovirus vaccine, inactivated Lorene Hemmer PA Work Phone: [facility] 03-30-2000 influenza, seasonal, injectable Lorene Hemmer PA Work Phone: [facility] 03-30-2000 influenza virus vaccine, unspecified formulation Lorene Hemmer PA Work Phone: [facility] 09-12-1998 haemophilus influenz ae type b vaccine, conjugate unspecified formulation Lorene Hemmer PA Work Phone: [facility] 11-28-1996 diphtheria, tetanus toxoids and acellular pertussis vaccine, unspecified formulation Lorene Hemmer PA Work Phone: [facility] 11-28-1996 haemophilus influenz ae type b vaccine, conjugate unspecified formulation Lorene Hemmer PA Work Phone: [facility] 11-28-1996 measles, mumps and rubella virus vaccine Lorene Hemmer PA Work Phone: [facility] 10-27-1996 trivalent poliovirus vaccine, live, oral Lorene Hemmer PA Work Phone: [facility] 01-31-1996 DTP-Haemophilus influenzae type b conjugate vaccine Lorene Hemmer PA Work Phone: [facility] 01-31-1996 hepatitis B vaccine, pediatric or pediatric/adolescent dosage Lorene Hemmer PA Work Phone: [facility] 01-31-1996 trivalent poliovirus vaccine, live, oral Lorene Hemmer PA Work Phone: [facility] 1995 DTP-Haemophilus influenzae type b conjugate vaccine Lorene Hemmer PA Work Phone: [facility] 1995 trivalent poliovirus vaccine, live, oral Lorene Hemmer PA Work Phone: [facility] 1995 DTP-Haemophilus influenzae type b conjugate vaccine Lorene Hemmer PA Work Phone: [facility] 1995 hepatitis B vaccine, pediatric or pediatric/adolescent dosage Lorene ROMAN Work Phone: [facility] 1995 haemophilus influenz ae type b vaccine, conjugate unspecified formulation Lorene ROMAN Work Phone: [facility] 1995 hepatitis B vaccine, pediatric or pediatric/adolescent dosage Lorene ROMAN Work Phone: [facility] Healthcare Payers Date Payer Category Payer [facility] Care O (unspecified) [id number] 2023 Private Health Insurance [id number] 2022 Private Health Insurance [id number] 2022 Self-pay 2022 Unknown [id number] 1995 Unknown [id number] 2.16.84 [id number] 1995 Unknown [id number] 2.16.84 0.1.302774.3.579.2.593 1995 Unknown [id number] 2.16.84 0.1.148652.3.579.2.593 1995 Unknown [id number] 2.16.84 0.1.823416.3.579.2.593 1995 Unknown [id number] 2.16.840.1.020273.3.579.2.1259 1995 Unknown [id number] 2.16.840.1.245031.3.579.2.1259 1995 Unknown [id number] 2.16.840.1.119361.3.579.2.1259 1995 Unknown [id number] 2.16.840.1.800363.3.579.2.1259 1995 Unknown [id number] 2.16.840.1.458566.3.579.2.1259 1995 Unknown [id number] 2.16.840.1.942504.3.579.2.9 1995 Unknown [id number] 2.16.840.1.003872.3.579.2.1258 1995 Unknown [id number] 2.16.840.1.305135.3.579.2.9 1995 Unknown [id number] 2.16.840.1.608463.3.579.2.1258 1995 Unknown [id number] 2.16.840.1.357432.3.579.2.1258 1995 Unknown [id number] 2.16.840.1.291696.3.579.2.1258 1995 Unknown [id number] 2.16.840.1.997190.3.579.2.1258 1995 Unknown [id number] 2.16.840.1.122490.3.579.2.1258 1995 Unknown [id number] 2.16.840.1.161670.3.579.2.1258 1995 Unknown [id number] 2.16.840.1.995656.3.579.2.1258 1995 Unknown [id number] 2.16.840.1.289886.3.579.2.1259 1959 Unknown [id number] 1959 Unknown [id number] 1959 Unknown [id number] Unknown [id number] 2.16.840.1.560574.3.579.2.531 Social History Date Type Detail Facility Tobacco smoking stat [facility] Unknown if ever smoked [facility] Work Phone: Start: 1995 Sex Assigned At Female [facility] Start: 09-08-2023 End: 11-23-2023 Sex Assigned At [facility] Healthcare Start: 11-24-2022 Tobacco smoking status MEIS Never smoked tobacco [facility] [...] to any clubs or organizations such as pentecostal groups, unions, fraTagrule or athletic groups, or school groups? No [...] Carroll documented in this encounter [facility] 04-03-2024 History of Presen t illness Narrative [...] nursing note reviewed. Exam conducted with a wood preparation supervisor present. Vitals: Estimated body mass index is [...] DO documented [facility] [facility] 03-19-2024 History of Presen t illness [...] Carroll documented in this encounter [facility] 03-05-2024 History of Presen t illness [...] Carroll documented in this encounter [facility] 03-01-2024 History of Presen t illness [...] Carroll documented in this encounter [facility] 02-20-2024 History of Presen t illness [...] nursing note reviewed. Exam conducted with a wood preparation supervisor present. Vitals: Estimated body mass index is [...] DO documented in this encounter [facility] 01-17-2024 History of Presen t illness [...] nursing note reviewed. Exam conducted with a wood preparation supervisor present. Vitals: Estimated body mass index is [...] Carroll documented in this encounter [facility] 12-20-2023 History of Presen t illness [...] Carroll documented in this encounter [facility] 11-25-2023 Telephone encount er Note Understood. [facility] 11-25-2023 Miscellaneous Notes Formattin g of this note might be different from the original. Understood. Nazia called stating her ob just wants her on Effexor instead of buspirone so that's what she'll be on documented in this encounter [facility] 11-25-2023 Telephone encount er Note Nazia called stating her ob just wants her on Effexor instead of buspirone so that's what she'll be on [facility] 11-23-2023 History of Presen t illness [...] Up. documented in this encounter [facility] 11-22-2023 History of Presen t illness [...] nursing note reviewed. Exam conducted with a wood preparation supervisor present. Vitals: Estimated body mass index is [...] DO documented in this encounter [facility] 05-11-2022 Evaluation note Encounter Date Diagnosis [...] Instructed patient to wear brace for activities. [employer] Other Evaluation noteNo assessment information available [facility] Work Phone: Evaluation note* Diagnosis Encounter [...] History learning disability Surgical History tymponostomy x7 [employer] Other Summary Purpose Family History No Family History Records FoundNo Family History Records FoundNo Family History Records Found Advance Directives No Advanced Directives Records FoundNo Advanced Directives Records FoundNo Advanced Directives Records Found Additional Source Comments INFORMATION SOURCE (unrecogn ized section and content) DATE CREATED AUTHOR 09/12/2021 [facility] DATE CREATED AUTHOR AUTHOR'S ORGANIZ ATION 05/21/2022 [facility] DATE CREATED AUTHOR AUTHOR'S ORGANIZ ATION 04/11/2024 [facility] [employer] Care Teams (unrecognized sec tion and content) Team Status: Inactive Member Role Status Dates Dee Buchanan MD Attending Provider Active Lsat Instructor Relationship Specialty Start Date End Date Verito Lamb MD [address] [facility] [address] [place] [address] PCP - General Family Medicine 10/18/22 Lsat Instructor Relationship Specialty Start Date End Date Verito Lamb MD [address] [facility] [address] [place] [address] PCP - General Family Medicine 10/18/22 Lsat Instructor Relationship Specialty Start Date End Date Verito Lamb MD [address] [facility] [address] [place] [address] PCP - General Family Medicine 10/18/22 Lsat Instructor Relationship Specialty Start Date End Date eVrito Lamb MD [address] [facility] [address] [place] [address] PCP - General Family Medicine 10/18/22 Lsat Instructor Relationship Specialty Start Date End Date Verito Lamb MD [address] [facility] [address] [place] [address] PCP - General Family Medicine 10/18/22 Lsat Instructor Relationship Specialty Start Date End Date Verito Lamb MD [address] [facility] [address] [place] [address] PCP - General Family Medicine 10/18/22 Lsat Instructor Relationship Specialty Start Date End Date Verito Lamb MD [address] [facility] [address] [place] [address] PCP - General Family Medicine 10/18/22 Lsat Instructor Relationship Specialty Start Date End Date Verito Lamb MD [address] [facility] [address] [place] [address] PCP - General Family Medicine 10/18/22 Lsat Instructor Relationship Specialty Start Date End Date Verito Lamb MD [address] [facility] [address] [place] [address] PCP - General Family Medicine 10/18/22 Lsat Instructor Relationship Specialty Start Date End Date Verito Lamb MD [address] [facility] [address] [place] [address] PCP - General Family Medicine 10/18/22 Lsat Instructor Relationship Specialty Start Date End Date Verito Lamb MD [address] [facility] [address] [place] [address] PCP - General Family Medicine 10/18/22 Lsat Instructor Relationship Specialty Start Date End Date Verito Lamb MD [address] [facility] [address] [place] [address] PCP - General Family Medicine 10/18/22 Lsat Instructor Relationship Specialty Start Date End Date Verito Lamb MD [address] [facility] [address] [place] [address] PCP - General Family Medicine 10/18/22 Lsat Instructor Relationship Specialty Start Date End Date Verito Lamb MD [address] [facility] [address] [place] [address] PCP - General Family Medicine 10/18/22 Goals [...] BE BASED ON THE PRIMARY CLINICAL RECORDS. [employer] [facility] provides no warranty or guarantee of the accuracy or completeness of information in this document.
--- NOTE | 2024-04-14 13:05 | US_ITS ---
[address] [address] Patient Name: ELIZABETH MOLINA MRN: [id number] date: 1995 Sex: F Assigned Patient Location: [facility] Current Patient Location: Accession/Order Number: [id number] Exam Date: 04/14/2024 13:07 Report Date: 04/15/2024 00:06 At the request of: GEE MARTINEZ Procedure: US OB BPP w non-stress EXAMINATION: US OB BPP w non-stress HISTORY:HYPERTENSION AFFECTING O16.3 COMPARISON: Ultrasound OB biophysical 04/07/2024 TECHNIQUE: Ultrasound biophysical profile was performed in the radiology department. BREATHING MOVEMENTS: 2 GROSS BODY MOVEMENTS: 2 TONE: 2 QUALITATIVE AMNIOTIC FLUID VOLUME: 2 PRESENTATION: CEPHALIC HEART RATE: 154.29 bpm AMNIOTIC FLUID VOLUME: 13.13 cm GESTATIONAL AGE: 37 weeks 3 days US/US OB BPP w non-stress IMPRESSION: 1. Total biophysical profile score: 8 Electronically authenticated by: RICHARD SCHULZ Date: 04/15/2024 00:06
[2024-04-14 13:22] VITALS: BP 123/72; PULSE 71
== END 2024-04-14 14:00 | disposition home or self-care (01) ==
LOC: US 03:13 → FBC 13:05
PROVIDERS: PCP Family Medicine; Visit Provider Physician Assistant
DX: O16.3 Unspecified maternal hypertension, third trimester (principal); Z3A.37 37 weeks gestation of pregnancy
CPT/HCPCS: 76818

== ENCOUNTER 2024-04-18 05:02 | Outpatient (OUT) | payer OTHER, SELFPAY ==
--- OUTSIDE RECORDS SUMMARY | 2024-04-18 05:05 | XMS_ITS | CCD ---
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 Name Role Phone JENNYFER, DR OSPINA Admitting [...] Consulting Unavailable MD Dee Buchanan Attending Provider [phone] Dee Buchanan Attending Unavailable Dee Buchanan Admitting Unavailable Dee Buchanan Unavailable Verito Lamb MD Primary Care Provider [phone] AMANDA MARTINEZ Attending Unavailable LORENE PLASENCIA Attending [...] Facility (1 source) Cephalexin Drug Allergy [facility] Repository (20 sources) ARIPiprazole Drug Allergy 3 [facility] Healthcare Work Phone: (20 sources) cariprazine Drug Allergy 3 [facility] Healthcare (20 sources) Cephalexin Drug Allergy 3 Unknown [facility] Healthcare (20 sources) Propofol Drug Allergy 3 Unknown [facility] Healthcare (20 sources) Flavoring Agent Allergy to substance 3 Unknown [facility] Healthcare (20 sources) Mosquito (Diagnostic) Drug Allergy 3 Unknown [facility] Healthcare (8 sources) Flavoring Agent (Non-Screening) Allergy to substance 3 Unknown [facility] Healthcare Medications Current Medications Medication [...] Active labetalol hydrochloride 100 mg oral tablet (17 sources) beta-Adrenergic Adina Start: 024 End: 025 [...] omeprazole 20 mg delayed release oral capsule (7 sources) Proton Pump Inhibitor Start: 04-03-2024 End: [...] H ealthcare Comment on above: Test Ordered: [id number] Strep Gp B Culture+Rflx Strep Gp B Culture+Rflx Negative CB Reference Range: Negative Centers for Disease Control and Prevention (CDC) and [place] Congress of Obstetricians and Gynecologists (ACOG) guidelines [...] resistance to clindamycin is noted. Performed at: [facility] [address] [id number] Director Of Materials Management: Nadir Schaffer PhD, Phone: [phone] GROUP B STREP [id number] Group B Streptococcus Colonization Detection Culture With Re [facility] Urinalysis macro (dipstick) panel (U)on 03-19-2024 Bilirubin, UA Positive Negative - 4(70) +++ mg/dL [facility] Comment on above: small Blood, UA Positive Negative - 50 Neno/mcL [facility] Comment on above: trace Clarity, UA Cloudy [facility] Color, UA Marilyn [facility] Glucose, UA Negative Negative - 2000(110) ++++ mg/dL [facility] Interpretation and review of laboratory results Abnormal [facility] re Ketones, UA Negative Negative - 160(16) ++++ mg/dL [facility] Leukocytes, UA Trace Negative - 500+++ Virgie/mcL [facility] Nitrite, UA Negative Negative - Positive [facility] pH, UA 6 5 - 9 [facility] Healthcar e Protein, UA Positive Negative - 1999(20) ++++ mg/dL [facility] Comment on above: 30 Spec Grav, UA 1.03 1 - 1.03 [facility] Urobilinogen, UA 0.2 0.2 - 12 mg/dL [facility] Urinalysis macro (dipstick) panel (U)on 03-05-2024 Bilirubin, UA Negative Negative - 4(70) +++ mg/dL [facility] Blood, UA Negative Negative - 50 Neno/mcL [facility] Clarity, UA Clear [facility] re Color, UA Yellow [facility] e Glucose, UA Negative Negative - 1999(110) ++++ mg/dL [facility] Interpretation and review of laboratory results Abnormal [facility] re Ketones, UA Negative Negative - 160(16) ++++ mg/dL [facility] Leukocytes, UA Positive Negative - 500+++ Virgie/mcL [facility] Comment on above: small Nitrite, UA Negative Negative - Positive [facility] pH, UA 6 5 - 9 [facility] [employer] e Protein, UA Negative Negative - 1999(20) ++++ mg/dL [facility] Spec Grav, UA 1.015 1 - 1.03 [facility] Urobilinogen, UA 0.2 0.2 - 12 mg/dL [facility] CCF APTTon 03-02-2024 aPTT Coag (Bld) [Time] 23.9 s [facility] No Panel Informationon 03-02 [facility] e SRMCOH PROTHROMBIN TIME INR W/O COUMon 03-02-2024 PT Coag (PPP) [Time] 9.9 s [facility] TBH INR 0.93 [facility] Healthcar e Comment on above: DESIRED INR: 2.0-3.0 CONDITIONS NOT LISTED BELOW 2.5-3.5 FOR PROSTHETIC HEART VALVE REPLACEMENT 2.5-3.5 RECURRENT THROMBOSIS Urinalysis macro (dipstick) panel (U)on 03-01-2024 Bilirubin, UA Negative Negative - 4(70) +++ mg/dL [facility] Blood, UA Negative Negative - 50 Neno/mcL [facility] Healthcare Clarity, UA Clear [facility] Color, UA Yellow [facility] Glucose, UA Negative Negative - 1999(110) ++++ mg/dL [facility] Interpretation and review of laboratory results Abnormal [facility] re Ketones, UA Negative Negative - 160(16) ++++ mg/dL [facility] Healthcare Leukocytes, UA Positive Negative - 500+++ Virgie/mcL [facility] Comment on above: small Nitrite, UA Negative Negative - Positive [facility] pH, UA 7 5 - 9 [facility] Health[facility] e Protein, UA Trace Negative - 1999(20) ++++ mg/dL [facility] Spec Grav, UA 1.02 1 - 1.03 [facility] care Urobilinogen, UA 0.2 0.2 - 12 mg/dL [facility] GLUCOSE 1 HOURon 01-25-2024 Glucose [Mass/Vol] 131 mg/dL High NINF - 13 0 mg/dL [facility] Interpretation and review of laboratory results Abnormal [facility]ca re [facility] e Urinalysis macro (dipstick) panel (U)on 01-17-2024 Bilirubin, UA Negative Negative - 4(70) +++ mg/dL [facility] Blood, UA Negative Negative - 50 Neno/mcL [facility] Healthcare Clarity, UA Clear [facility]ca re Color, UA Yellow [facility] e Glucose, UA Negative Negative - 1999(110) ++++ mg/dL [facility] Interpretation and review of laboratory results Abnormal [facility] re Ketones, UA Negative Negative - 160(16) ++++ mg/dL [facility] Leukocytes, UA Trace Negative - 500+++ Virgie/mcL [facility] Healthcare Nitrite, UA Negative Negative - Positive [facility] pH, UA 6 5 - 9 [facility] Protein, UA Negative Negative - 1999(20) ++++ mg/dL [facility] Healthcare Spec Grav, UA 1.02 1 - 1.03 [facility] Urobilinogen, UA 1.0 0.2 - 12 mg/dL [facility] Healthcare [facility] Urinalysis macro (dipstick) panel (U)on 12-20-2023 Bilirubin, UA Negative Negative - 4(70) +++ mg/dL [facility] Blood, UA Negative Negative - 50 Neno/mcL [facility] Clarity, UA Clear [facility] Healthca re Color, UA Yellow [facility] e Glucose, UA Negative Negative - 1999(110) ++++ mg/dL [facility] Interpretation and review of laboratory results Abnormal [facility] Ketones, UA Negative Negative - 160(16) ++++ mg/dL [facility] Leukocytes, UA Trace Negative - 500+++ Virgie/mcL [facility] Nitrite, UA Negative Negative - Positive [facility] pH, UA 6.5 5 - 9 [facility] Health[facility] e Protein, UA Negative Negative - 1999(20) ++++ mg/dL [facility] Spec Grav, UA 1.025 1 - 1.03 [facility] Urobilinogen, UA 0.2 0.2 - 12 mg/dL [facility] AFP, SERUM, OPEN SPINA BIFID Aon 12-11-2023 AFP MOM 0.79 . [facility] e AFP VALUE 34.7 ng/mL . [facility] Healthcar e COMMENT: Comment . [facility] e Comment on above: Treav Gong , Ph.D., [facility] Director References: Available Upon Request. Multiples Of Median Cutoffs For AFP Elevations Banuelos 2.5 Black 2.8 IDD 2.0 Twins 4.5 Abbreviation Definitions IDD - Insulin Dep Diabetes OSBR - Open Spina Bifida Risk For further inquiries contact [employer] [facility] at [phone]. This test was developed and its performance characteristics determined by [facility]. It has not been cleared or approved by the Food and Drug Administration. Performed at: [facility], [place], [place] [id number] Director Of Materials Management: Maira Jones [facility], Phone: [phone] GEST. AGE ON COLLECTION DATE 19.3 . weeks [facility] GESTAT. AGE BASED ON LMP . [facility] Comment on above: Recalculations are n ot recommended when gestational dating by LMP and ultrasound are within 10 days. INSULIN DEP DIABETES No . [facility] INTERPRETATION Comment . [facility] Healt hcare Comment on above: [...] Customer Services to discuss available options. The [place] College of Obstetricians and Gynecologists recommends amniocentesis be offered to women age 35 and older. [age] [facility] MULTIPLE GESTATION No . [facility] [place] [address] [place] [id number] . [facility] Healt hcare RACE . [facility] [employer] RESULTS Report . [facility] Geni e TEST RESULTS: Negative . [facility] [employer] [facility] WEIGHT 188 . lbs [facility] Geni e N N LMP [id number] N 1 Y 188 N N N N N White/ [facility] Geni e IGP,APTIMA HPV,AGE GDLNon AGE GDLN ACOG TESTING Note . [facility] Comment on above: TESTS RESULT FLAG UN ITS REF RANGE LAB Clinician Provided Cytology Information Source.............Cervix No. of containers..01 ThinPrep Vial Age Algo ACOG Madonna... FLAG LEGEND: L-Low Normal,H-High Normal,LL-Alert Low,HH-Alert High <-Panic Low,>-Panic High,A-Abnormal,AA-Critical Abnormal Performed at: 01 =G [facility] [address] [place] [address] Tierra Morales MD, IGP, RFX APTIMA HPV ASCU Note . [facility] Comment on above: TESTS RESULT FLAG UN ITS REF RANGE LAB DIAGNOSIS: 02 NEGATIVE FOR INTRAEPITHELIAL LESION OR MALIGNANCY. Specimen adequacy: 02 Satisfactory for evaluation. No endocervical component is identified. Performed by: 02 Francesca Blanc, Visual Merchandising Manager ([facility]) . 02 Note: Note 02 The [...] High,A-Abnormal,AA-Critical Abnormal Performed at: 02 WB [facility] [address] [place] [address] Tierra Morales MD, Performed at: =G - [facility] [address] [id number] Director Of Materials Management: Tierra Morales MD, Phone: [phone] Performed at: - [facility] [address], [place] [id number] Director Of Materials Management: Tierra Morales MD, Phone: [phone] SPATULA-ALONE CERVIX [facility] Urinalysis macro (dipstick) panel (U)on 11-22-2023 Bilirubin, UA Negative Negative - 4(70) +++ mg/dL [facility] Blood, UA Negative Negative - 50 Neno/mcL [facility] Clarity, UA Clear [facility] Healthca re Color, UA Yellow [facility] Glucose, UA Negative Negative - 1999(110) ++++ mg/dL [facility] Interpretation and review of laboratory results Normal [facility] Healthca re Ketones, UA Negative Negative - 160(16) ++++ mg/dL [facility] Leukocytes, UA Negative Negative - 500+++ Virgie/mcL [facility] Nitrite, UA Negative Negative - Positive [facility] pH, UA 6.5 5 - 9 [facility] Protein, UA Negative Negative - 1999(20) ++++ mg/dL [facility] Spec Grav, UA 1.025 1 - 1.03 [facility] care Urobilinogen, UA 1.0 0.2 - 12 mg/dL [facility] XR wrist LT min 3V*on 2022 XR wrist LT min 3V* [facility] [address] XRay Report Signed Patient: Nazia Harper MR#: [id number] 67 : 1995 Acct:[id number] Age/Sex: 26 / F ADM Date: 05/11/22 Loc: [facility] [place] Room: Type: [facility] Attending Dr: Dee Buchanan MD Copies [...] Travis Jr., D.O.05/11/2022 12:18 PM Dictation Location: [place] [address] Transcribed By: [facility] 05/11/22 1218 Dictated By: Tan Travis Jr, DO 05/11/22 1217 Signed By: 05/11/22 1218 Normal [facility] XR wrist LT min 3V* [facility] [email or web address] Other XR wrist LT min 3V* [facility] [email or web address] Other XR wrist LT min 3V* [address] [place] [address] [employer] Other XR wrist LT min 3V* [place] [address] [employer] Other XR wrist LT min 3V* XRay Report [employer] Other XR wrist LT min 3V* Signed [employer] Other XR wrist LT min 3V* Patient: Nazia Harper MR#: [id number] [employer] Other XR wrist LT min 3V* 67 [employer] Other XR wrist LT min 3V* : 1995 Acct:[id number] [employer] Other XR wrist LT min 3V* Age/Sex: 26 / F ADM Date: 05/11/22 [employer] Other XR wrist LT min 3V* Loc: [facility] Room: Type: [facility] [employer] Other XR wrist LT min 3V* Attending Dr: Dee Buchanan MD [employer] Other XR wrist LT min 3V* Copies to: Dee Buchanan MD [employer] Other XR wrist LT min 3V* Ordering Provider: Dee Buchanan MD [employer] Other XR wrist LT min 3V* Date of Service: 05/11/22 [employer] Other XR wrist LT min 3V* XR/XR wrist LT min 3V*: PAIN [employer] Other XR wrist LT min 3V* LEFT WRIST - 4 views [employer] Other XR wrist LT min 3V* CLINICAL HISTORY: Ganglion cyst posterior aspect at the level of the carpals. [employer] Other XR wrist LT min 3V* COMPARISON: None [employer] Other XR wrist LT min 3V* FINDINGS: [employer] Other XR wrist LT min 3V* No focal soft tissue abnormality is noted. No acute bony process is seen. Carpal bones appear [employer] Other XR wrist LT min 3V* unremarkable. [employer] Other XR wrist LT min 3V* XR/XR wrist LT min 3V* [employer] Other XR wrist LT min 3V* IMPRESSION: [employer] Other XR wrist LT min 3V* NO ACUTE BONY PROCESS. [employer] Other XR wrist LT min 3V* Impression dictated by: Tan Travis Jr., D.OJuanis05/11/2022 12:18 PM [employer] Other XR wrist LT min 3V* Dictation Location: [facility] [employer] Other XR wrist LT min 3V* Transcribed By: JOSE ALEJANDRO 05/11/22 1218 [employer] Other XR wrist LT min 3V* Dictated By: Tan Travis Jr, DO 05/11/22 1217 [employer] Other XR wrist LT min 3V* Signed By: [employer] Other XR wrist LT min 3V* 05/11/22 1218 [employer] Other PAP ACOG PANEL 2: 21 to 29on 08-15-2021 . . Normal [facility] Comment on above: Result Comment: Perf ormed at: BA Performed By: #### [id number] #### [facility] [address] [place] [address] Dr. Alek Fu Age Gdln ACOG Testing [facility] Comment on above: Performed By: #### [id number] #### [facility] [address] [place] [address] Dr. Alek Fu DIAGNOSIS: Comment [facility] Comment on above: Result Comment: NEGA TIVE FOR INTRAEPITHELIAL LESION OR MALIGNANCY. Performed at: BA Performed By: #### [id number] #### [facility] [address] [place] [address] Dr. Alek Fu Methodology: Comment [facility] Comment on above: Result Comment: This liquid based ThinPrep(R) pap test was screened with the use of an image guided system. Performed at: WB Performed By: #### [id number] #### [facility] [address] [place] [address] Dr. Alek Fu Note: Comment [facility] Comment on above: Result Comment: The Pap smear is a screening test designed to aid in the detection of premalignant and malignant conditions of the uterine cervix. It is not a diagnostic procedure and should not be used as the sole means of detecting cervical cancer. Both false-positive and false-negative reports do occur. . Performed at: WB Performed By: #### [id number] #### [facility] [address] [place] [address] Dr. Alek Fu Performed by: Comment Normal [facility] Comment on above: Result Comment: Elen Carrillo, Visual Merchandising Manager (ASCP) Performed at: BA Performed By: #### [id number] #### [facility] [address] [place] [address] Dr. Alek Fu Reflex Criteria: Comment Normal [facility] Comment on above: Result Comment: The HPV DNA reflex criteria were not met with this specimen result therefore, no HPV testing was performed. . Performed at: BA Performed By: #### [id number] #### [facility] [address] [place] [address] Dr. Alek Fu Specimen adequacy: Comment Normal [facility] Comment on above: Result Comment: Sati sfactory for evaluation. Endocervical and/or squamous metaplastic cells (endocervical component) are present. Performed at: BA Performed By: #### [id number] #### [facility] [address] [place] [address] Dr. Alek Fu XR KNEE SABRINA 4V [...] ZURI PHOENIX Date: 2021-07-17 17:09 Normal [facility] CBC AUTO DIFFon 12-08-2020 BASO # 0.0 103/ul Normal 0.0-0.1 [facility] Comment on above: Performed By: #### C BC #### [facility] [address] [place] [address] Dr. Alek Fu Basophils/100 WBC (Bld) 0.2 % Normal 0.2-2.0 [facility] Comment on above: Performed By: #### C BC #### [facility] [address] [place] [address] Dr. Alek Fu EO # 0.0 103/ul Normal 0.0-0.7 [facility] Comment on above: Performed By: #### C BC #### [facility] [address] [address] [address] Alek Fu Eosinophils/100 WBC (Bld) 0.6 % Critically low 0.9-7.0 [facility] Comment on above: Performed By: #### C BC #### [facility] [address] [place] [address] Dr. Alek Fu Erythrocyte distribution width (RBC) [Ratio] 12.4 % Normal 11.0-15.0 [facility] Comment on above: Performed By: #### C BC #### [facility] [address] [place] [address] Dr. Alek Fu Hematocrit (Bld) [Volume fraction] 44.3 % Normal 36.0-48.0 [facility] Comment on above: Performed By: #### C BC #### [facility] [address] [place] [address] Dr. Alek Fu Hemoglobin (Bld) [Mass/Vol] 15.4 g/dL Normal 12.0-16.0 [facility] Comment on above: Performed By: #### C BC #### [facility] [address] [place] [address] Dr. Alek Fu IG # 0.04 10e3/ul Critically high 0.00-0.03 [facility] Comment on above: Performed By: #### C BC #### [facility] [address] [place] [address] Dr. Alek Fu IG % 0.6 % Critically high 0.0-0.5 [facility] Comment on above: Performed By: #### C BC #### [facility] [address] [place] [address] Dr. Alek Fu LYMPH # 3.2 103/ul Normal 1.2-3.8 [facility] Comment on above: Performed By: #### C BC #### [facility] [address] [place] [address] Dr. Alek Fu Lymphocytes/100 WBC (Bld) 50.2 % Normal 20.5-60.0 [facility] Comment on above: Performed By: #### C BC #### [facility] [address] [place] [address] Dr. Alek Fu MANUAL DIFF REQ NO Normal [facility] Comment on above: Performed By: #### C BC #### [facility] [address] [place] [address] Dr. Alek Fu MCH (RBC) [Entitic mass] 28.7 pg Normal 26.7-34.0 [facility] Comment on above: Performed By: #### C BC #### [facility] [address] [place] [address] Dr. Alek Fu MCHC (RBC) [Mass/Vol] 34.8 g/dL Normal 29.9-35.2 [facility] Comment on above: Performed By: #### C BC #### [facility] [address] [place] [address] Dr. Alek Fu MCV (RBC) [Entitic vol] 82.5 fL Normal 81.0-99.0 [facility] Comment on above: Performed By: #### C BC #### [facility] [address] [place] [address] Dr. Alek Fu MONO # 0.6 103/ul Normal 0.3-0.8 [facility] Comment on above: Performed By: #### C BC #### [facility] [address] [place] [address] Dr. Alek Fu Monocytes/100 WBC (Bld) 10.0 % Normal 1.7-12.0 [facility] Comment on above: Performed By: #### C BC #### [facility] [address] [place] [address] Dr. Alek Fu NEUT # 2.4 103/ul Normal 1.4-6.5 [facility] Comment on above: Performed By: #### C BC #### [facility] [address] [place] [address] Dr. Alek Fu Neutrophils/100 WBC (Bld) 38.4 % Critically low 43.0-75.0 [facility] Comment on above: Performed By: #### C BC #### [facility] [address] [place] [address] Dr. Alek Fu Platelet mean volume (Bld) [Entitic vol] 9.9 fL Normal 9.5-13.5 [facility] Comment on above: Performed By: #### C BC #### [facility] [address] [place] [address] Dr. Alek Fu PLT 206 103/ul Normal 150-450 [facility] Comment on above: Performed By: #### C BC #### [facility] [address] [place] [address] Dr. Alek Fu RBC 5.37 106/ul Normal 4.20-5.40 [facility] Comment on above: Performed By: #### C BC #### [facility] [address] [place] [address] Dr. Alek Fu WBC 6.3 103/ul Normal 4.0-11.0 [facility] Comment on above: Performed By: #### C BC #### [facility] [address] [place] [address] Dr. Alek Fu ER URINE PROFILEon 1 Bilirubin Ql (U) Negative Normal NEGATIVE [facility] Comment on above: Performed By: #### E RUR #### [facility] [address] [place] [address] Dr. Alek Fu Clarity (U) CLEAR Normal CLEAR [facility] Comment on above: Performed By: #### E RUR #### [facility] [address] [place] [address] Dr. Alek Fu Color (U) YELLOW Normal YELLOW [facility] [facility] Comment on above: Performed By: #### E RUR #### [facility] [address] [place] [address] Dr. Alek Fu ERUAHD A micrscopic examination will be performed if indicated. Normal [facility] Comment on above: Performed By: #### E RUR #### [facility] [address] [place] [address] Dr. Alek Fu Glucose Ql (U) Negative Normal NEGATIVE [facility] Comment on above: Performed By: #### E RUR #### [facility] [address] [place] [address] Dr. Alek Fu Hemoglobin Ql (U) TRACE-INTACT Abnormal NEGATIVE [facility] Comment on above: Performed By: #### E RUR #### [facility] [address] [place] [address] Dr. Alek Fu Ketones Ql (U) TRACE Abnormal NEGATIVE [facility] Comment on above: Performed By: #### E RUR #### [facility] [address] [place] [address] Dr. Alek Fu LEUKOCYTES Negative Normal NEGATIVE [facility] Comment on above: Performed By: #### E RUR #### [facility] [address] [place] [address] Dr. Alek Fu Nitrite Ql (U) Negative Normal NEGATIVE [facility] Comment on above: Performed By: #### E RUR #### [facility] [address] [place] [address] Dr. Alek Fu pH (U) 6.0 [pH] Normal 5-9 [facility] Comment on above: Performed By: #### E RUR #### [facility] [address] [place] [address] Dr. Alek Fu SPEC GRAVITY 1.015 Normal 1.005-<=1.025 [facility] Comment on above: Performed By: #### E RUR #### [facility] [address] [place] [address] Dr. Alek Fu UA PROTEIN Negative Normal NEGATIVE/ TRACE [facility] Comment on above: Performed By: #### E RUR #### [facility] [address] [place] [address] Dr. Alek Fu UR MICRO IND NOT INDICATED Normal [facility] Comment on above: Performed By: #### E RUR #### [facility] [address] [place] [address] Dr. Alek Fu Urobilinogen Qn (U) 0.2 {Roya'U}/dL Normal 0.2 - 1.0 [facility] Comment on above: Performed By: #### E RUR #### [facility] [address] [address] [address] Alek Fu URon 12-08-2020 , QUAL Negative Normal NEGATIVE [facility] Comment on above: Performed By: #### P REGU #### [facility] [address] [place] [address] Dr. Alek Fu PROF CHEM 8 (BAS METB)on Anion gap [Moles/Vol] 13.0 mmol/L Normal [facility] Comment on above: Performed By: #### B MP #### [facility] [address] [address] [address] Alek Fu Calcium [Mass/Vol] 9.0 mg/dL Normal 8.4-10.2 [facility] Comment on above: Performed By: #### B MP #### [facility] [address] [place] [address] Dr. Alek Fu Chloride [Moles/Vol] 103 mmol/L Normal 98-107 [facility] Comment on above: Performed By: #### B MP #### [facility] [address] [place] [address] Dr. Alek Fu CO2 [Moles/Vol] 25.0 mmol/L Normal 22.0-30.0 [facility] Comment on above: Performed By: #### B MP #### [facility] [address] [place] [address] Dr. Alek Fu Creatinine [Mass/Vol] 0.96 mg/dL Normal 0.52-1.04 [facility] Comment on above: Performed By: #### B MP #### [facility] [address] [place] [address] Dr. Alek Fu EGFR-AF MARSHALLESE >60 Normal >=60 [facility] Comment on above: Performed By: #### B MP #### [facility] [address] [place] [address] Dr. Alek Fu EGFR-NON AF MARSHALLESE >60 Normal >=60 [facility] Comment on above: Performed By: #### B MP #### [facility] [address] [place] [address] Dr. Alek Fu Glucose [Mass/Vol] 99 mg/dL Normal 74-106 [facility] Comment on above: Performed By: #### B MP #### [facility] [address] [address] [address] Alek Fu Potassium [Moles/Vol] 3.0 mmol/L Critically low 3.4-5.0 [facility] Comment on above: Performed By: #### B MP #### [facility] [address] [address] [address] Alek Fu Sodium [Moles/Vol] 138 mmol/L Normal 137-145 [facility] Comment on above: Performed By: #### B MP #### [facility] [address] [address] [address] Alek Fu Urea nitrogen [Mass/Vol] 11.0 mg/dL Normal 7.0-17.0 [facility] Comment on above: Performed By: #### B MP #### [facility] [address] [address] [address] Alek Fu Urea nitrogen/Creatinin e [Mass ratio] 11.5 mg/mg Normal [facility] Comment on above: Performed By: #### B MP #### [facility] [address] [address] [address] Alek Fu [facility] SARS-CoV-2 (COVID-19) RNA SANTANA+probe Ql (Unsp spec) Detected Critically abnormal NOT DETECTED [facility] Comment on above: Result Comment: This test is not yet approved or cleared by the [place] FDA. When there are no FDA-approved or cleared tests available, and other criteria are met, FDA can make tests available under an emergency access mechanism called an Emergency Use Authorization (EUA). The EUA for this test is supported by the Gate Tender of Health and Human Service's (HHS's) declaration [...] used). Performed By: #### [facility] #### [facility] [address] [place] [address] Dr. Alek Fu Vital Signs Date Time Vital Sign Value Performing Clinician Mayelin cruz 04-10-2024 10:17-0500 Body mass index (BMI) [Ratio] 39.53 kg/m2 Amanda Paola PA Work Phone: [facility] 04-10-2024 10:17-0500 Body weight 98.03 kg Amanda Paola PA Work Phone: [facility] 04-10-2024 10:17-0500 Diastolic blood pressure 76 mm[Hg] Amanda Juan PA Work Phone: [facility] 04-10-2024 10:17-0500 Systolic blood pressure 116 mm[Hg] Amanda Paola PA Work Phone: [facility] 03-19-2024 10:38-0500 Body mass index (BMI) [Ratio] 37.68 kg/m2 Amanda Juan PA Work Phone: [facility] 03-19-2024 10:38-0500 Body weight 93.44 kg Amanda Juan PA Work Phone: [facility] 03-19-2024 10:38-0500 Diastolic blood pressure 76 mm[Hg] Amanda Paola PA Work Phone: [facility] 03-19-2024 10:38-0500 Systolic blood pressure 122 mm[Hg] Amanda Juan PA Work Phone: [facility] 03-05-2024 09:47-0500 Body mass index (BMI) [Ratio] 37.93 kg/m2 Amanda Paola PA Work Phone: [facility] 03-05-2024 09:47-0500 Body weight 94.08 kg Amanda Paola PA Work Phone: [facility] 03-05-2024 09:47-0500 Diastolic blood pressure 74 mm[Hg] Amanda Juan PA Work Phone: [facility] 03-05-2024 09:47-0500 Systolic blood pressure 110 mm[Hg] Amanda Paola PA Work Phone: [facility] 03-01-2024 11:46-0500 Body mass index (BMI) [Ratio] 37.57 kg/m2 Amanda Paola PA Work Phone: [facility] 03-01-2024 11:46-0500 Body weight 93.17 kg Amanda Juan PA Work Phone: [facility] 03-01-2024 11:46-0500 Diastolic blood pressure 90 mm[Hg] Amanda Juan PA Work Phone: [facility] 03-01-2024 11:46-0500 Systolic blood pressure 130 mm[Hg] Amanda Juan PA Work Phone: [facility] 02-20-2024 10:07-0500 Body mass index (BMI) [Ratio] 37.68 kg/m2 Anai Jennyfer DO Work Phone: [facility] 02-20-2024 10:07-0500 Body weight 93.44 kg Anai Jennyfer DO Work Phone: [facility] 02-20-2024 10:07-0500 Diastolic blood pressure 80 mm[Hg] Anai Jennyfer DO Work Phone: [facility] 02-20-2024 10:07-0500 Systolic blood pressure 122 mm[Hg] Anai Jennyfer DO Work Phone: [facility] 01-17-2024 10:15-0400 Body mass index (BMI) [Ratio] 36 kg/m2 Amanda Juan PA Work Phone: [facility] 01-17-2024 10:15-0400 Body weight 89.27 kg Amanda Juan PA Work Phone: [facility] 01-17-2024 10:15-0400 Diastolic blood pressure 70 mm[Hg] Amanda Juan PA Work Phone: [facility] 01-17-2024 10:15-0400 Systolic blood pressure 122 mm[Hg] Amanda Paola PA Work Phone: [facility] 12-20-2023 09:58-0400 Body mass index (BMI) [Ratio] 34.93 kg/m2 Amanda Juan PA Work Phone: [facility] 12-20-2023 09:58-0400 Body weight 86.64 kg Amanda Juan PA Work Phone: [facility] 12-20-2023 09:58-0400 Diastolic blood pressure 76 mm[Hg] Amanda Paola PA Work Phone: [facility] 12-20-2023 09:58-0400 Systolic blood pressure 124 mm[Hg] Amanda Paola PA Work Phone: [facility] 11-23-2023 09:47-0400 Body height 157.5 cm Lorene Hemmer PA Work Phone: [facility] 11-23-2023 09:47-0400 Body mass index (BMI) [Ratio] 34.39 kg/m2 Lorene Hemmer PA Work Phone: [facility] 11-23-2023 09:47-0400 Body weight 85.28 kg Lorene Hemmer PA Work Phone: [facility] 11-23-2023 09:47-0400 Diastolic blood pressure 86 mm[Hg] Lorene Hemmer PA Work Phone: [facility] 11-23-2023 09:47-0400 Heart rate 81 /min Lorene Hemmer PA Work Phone: [facility] 11-23-2023 09:47-0400 Respiratory rate 16 /min Lorene Hemmer PA Work Phone: [facility] 11-23-2023 09:47-0400 SaO2% (BldA) [Mass fraction] 98 % Lorene Hemmer PA Work Phone: [facility] 11-23-2023 09:47-0400 Systolic blood pressure 124 mm[Hg] Lorene Hemmer PA Work Phone: [facility] 11-22-2023 09:29-0400 Body mass index (BMI) [Ratio] 34.41 kg/m2 Anai Jennyfer DO Work Phone: [facility] 11-22-2023 09:29-0400 Body weight 85.33 kg Anai Jennyfer DO Work Phone: [facility] 11-22-2023 09:29-0400 Diastolic blood pressure 74 mm[Hg] Anai Jennyfer DO Work Phone: [facility] 11-22-2023 09:29-0400 Systolic blood pressure 122 mm[Hg] Anai Jennyfer DO Work Phone: [facility] Encounters Encounter Date Encounter Type Care Provider Facility Start: 04-17-2024 End: 04-17-2024 Bamboo flowsheet Anai Jennyfer DO Work Phone: [facility] Start: 04-17-2024 End: 04-17-2024 Bamboo flowsheet Anai Jennyfer DO Work Phone: [facility] Start: 04-10-2024 End: 04-10-2024 Bamboo flowsheet Amanda ROMAN Work Phone: [facility] Start: 04-10-2024 End: 04-10-2024 Bamboo flowsheet Amanda ROMAN Work Phone: [facility] Start: 04-10-2024 End: 04-10-2024 flow sheet Amanda ROMAN Work Phone: [facility] Comment on above: Third trimester preg gregor; 36 weeks gestation of Start: 04-10-2024 End: 04-10-2024 ambulatory AMANDA MARTINEZ Not Available Start: 04-03-2024 End: 04-03-2024 Bamboo flowsheet Anai Jennyfer DO Work Phone: [facility] Start: 04-03-2024 End: 04-08-2024 Bamboo flowsheet Anai Jennyfer DO Work Phone: [facility] Start: 04-03-2024 End: 04-08-2024 Clinisync Result Encounter Anai Jennyfer DO Work Phone: [facility] Unsolicited Start: 04-03-2024 End: 04-03-2024 [...] encounter procedure Anai Jennyfer DO Work Phone: [facility] Start: 11-22-2023 End: 11-22-2023 Periodic preventive med est patient 18-39 yrs Anai Jennyfer DO Work Phone: [facility] Comment on above: Screening, , for anatomic survey; Well woman exam with routine gynecological exam; Second trimester ; Vaginal discharge; STD exposure; Mood disorder ([facility]) Start: 10-24-2023 End: 10-24-2023 ambulatory ANAI JENNYFER Not Available Start: 10-11-2023 End: 10-11-2023 ambulatory AMANDA PHILLIPSEY Not Available Start: 09-29-2023 End: 09-29-2023 ambulatory AMANDA MARTINEZ Not Available Start: 09-08-2023 End: 09-08-2023 ambulatory SANGEETHA GRAY Not Available Start: 07-26-2023 End: 07-26-2023 ambulatory LORENE PLASENCIA Not Available Start: 06-16-2023 End: 06-16-2023 ambulatory LORENE PLASENCIA Not Available Start: 05-11-2022 Office outpatient ne w 45 minutes [facility] Start: 05-11-2022 End: 05-11-2022 ambulatory Dee Buchanan Facility:[facility] Start: 05-11-2022 End: 05-11-2022 ambulatory MD Dee Buchanan Work Phone: [facility] Work Phone: Start: 05-11-2022 End: 05-11-2022 Patient encounter procedure MD Dee Buchanan Work Phone: [facility] Start: 08-10-2021 End: [...] Phone: Start: 11-22-2023 IGP,APTIMA HPV,AGE GDLN Anai [employer] DO Work Phone: Start: 11-22-2023 Urnls dip stick/tabl et rgnt non-auto w/o micrscp Anai [employer] DO Work Phone: Start: 05-11-2022 Plain X-ray of left wrist MD Dee Buchanan Work Phone: Plan of Treatment Date Care Activity Detail Author Start: 04-17-2024 End: 04-17-2024 Patient encounter procedure 04/17/2024 10:50 AM EST Routine [facility] [address] [place] [address] Anai Bugrer, DO [address] [place], [place] [id number] [facility] Start: 04-10-2024 End: 04-10-2024 [...] AM EST Routine [facility] [address] [place] [address] Anai Burger, DO [address] [place], [place] [id number] Arrived [facility] Comment on above: Arrived Start: 03-19-2024 End: 03-19-2024 Patient encounter procedure [facility] Comment on above: Arrived Start: 03-05-2024 End: 03-05-2024 Patient encounter procedure [facility] Comment on above: Arrived Start: 03-05-2024 End: 03-05-2024 Professional / ancillary services management 03/05/2024 9:00 AM EST Ancillary Procedure [facility] [address] [place] [id number] [facility] Start: 03-01-2024 End: 03-01-2025 Alanine aminotransferase [Enzymatic activity/volume] in Serum or Plasma ALT Lab Routine induced hypertension, antepartum Expected: 03/01/2024 (Approximate), Expires: 03/01/2025 [facility] Comment on above: Expected: 03/01/2024 (Approximate), Expires: 03/01/2025 Start: 03-01-2024 End: 03-01-2025 Aspartate aminotransferase [Enzymatic activity/volume] in Serum or Plasma AST Lab Routine induced hypertension, antepartum Expected: 03/01/2024 (Approximate), Expires: 03/01/2025 [facility] Comment on above: Expected: 03/01/2024 (Approximate), Expires: 03/01/2025 Start: 03-01-2024 End: 03-01-2025 CBC W Auto Differential panel - Blood CBC and differential Lab Routine induced hypertension, antepartum Expected: 03/01/2024 (Approximate), Expires: 03/01/2025 [facility] Comment on above: Expected: 03/01/2024 (Approximate), Expires: 03/01/2025 Start: 03-01-2024 End: 03-01-2025 Creatinine [Mass/volume] in Serum or Plasma Creatinine Lab Routine induced hypertension, antepartum Expected: 03/01/2024 (Approximate), Expires: 03/01/2025 [facility] Work Phone: Comment on above: Expected: 03/01/2024 (Approximate), Expires: 03/01/2025 Start: 03-01-2024 End: 03-01-2025 Lactate dehydrogenase [Enzymatic activity/volume] in Serum or Plasma by Lactate to pyruvate reaction Lactate dehydrogenase Lab Routine induced hypertension, antepartum Expected: 03/01/2024, Expires: 03/01/2025 [facility] Comment on above: Expected: 03/01/2024 , Expires: 03/01/2025 Start: 03-01-2024 End: 03-01-2025 Protein, urine, 24 hour Protein, urine, 24 hour Lab Routine induced hypertension, antepartum Expected: 03/01/2024 (Approximate), Expires: 03/01/2025 [facility] Comment on above: Expected: 03/01/2024 (Approximate), Expires: 03/01/2025 Start: 03-01-2024 End: 03-01-2025 Pt and ptt Pt and ptt Lab Routine induced hypertension, antepartum Expected: 03/01/2024, Expires: 03/01/2025 [facility] Comment on above: Expected: 03/01/2024 , Expires: 03/01/2025 Start: 03-01-2024 End: 03-01-2025 Urate [Mass/volume] in Serum or Plasma Uric acid Lab Routine induced hypertension, antepartum Expected: 03/01/2024 (Approximate), Expires: 03/01/2025 [facility] Comment on above: Expected: 03/01/2024 (Approximate), Expires: 03/01/2025 Start: 03-01-2024 End: 03-01-2025 Urea nitrogen [Mass/volume] in Serum or Plasma BUN Lab Routine induced hypertension, antepartum Expected: 03/01/2024, Expires: 03/01/2025 [facility] Comment on above: Expected: 03/01/2024 , Expires: 03/01/2025 Start: 03-01-2024 End: 03-01-2025 US biophysical profile w non stress test US biophysical profile w non stress test Imaging Routine Hypertension affecting in third trimester Lightheadedness Dizziness Expected: 03/01/2024 (Approximate), Expires: 03/01/2025 [facility] Comment on above: Expected: 03/01/2024 (Approximate), [...] of anatomy Expected: 01/20/2024 (Approximate), Expires: 12/19/2024 [facility] Work Phone: Comment on above: Expected: 01/20/2024 (Approximate), Expires: 12/19/2024 Start: 01-17-2024 End: 01-16-2025 CBC panel - Blood by Automated count CBC Lab Routine Diabetes mellitus screening Expected: 01/17/2024 (Approximate), Expires: 01/16/2025 [facility] Work Phone: Comment on above: [...] EDT Ancillary Procedure [facility] [address] [place] [id number] [facility] Start: 12-20-2023 End: 12-20-2023 Patient encounter procedure [facility] Comment on above: Arrived Start: 12-14-2023 End: 12-14-2023 Professional / ancillary services management 12/14/2023 9:00 AM EDT Ancillary Procedure [facility] [address] [place] [address] [facility] Start: 11-22-2023 End: 05-21-2024 Alpha fetoprotein, maternal Alpha fetoprotein, maternal Lab Routine Second trimester Expected: 11/22/2023 (Approximate), Expires: 05/21/2024 [facility] Comment on above: Expected: 11/22/2023 (Approximate), Expires: 05/21/2024 Start: 11-22-2023 End: 11-21-2024 US for US OB ANATOMY SINGLE W US OB CERVICAL LENGTH Imaging Routine Screening, , for anatomic survey Expected: 11/22/2023 (Approximate), Expires: 11/21/2024 [facility] Comment on above: Expected: 11/22/2023 (Approximate), Expires: 11/21/2024 Start: 11-20-2023 Influenza vaccination Influenza Vacc ine (#1) [facility] CHLAMYDIA TRACHOMATI S (GENITO/STI) CHLAMYDIA TRACHOMATIS (GENITO/STI) Lab Routine STD exposure Ordered: 11/22/2023 [facility] Comment on above: Ordered: 11/22/2023 Cytology Cervical or vaginal smear or scraping study Pap Smear Pathology and Cytology Routine Well woman exam with routine gynecological exam Ordered: 11/22/2023 [facility] Comment on above: Ordered: 11/22/2023 Neisseria gonorrhoea e DNA [Presence] in Unspecified specimen by SANTANA with probe detection Neisseria gonorrhea DNA probe, direct Lab Routine STD exposure Ordered: 11/22/2023 [facility] Comment on above: Ordered: 11/22/2023 SURESWAB(R) ADVANCED VAGINITIS PLUS, TMA SURESWAB(R) ADVANCED VAGINITIS PLUS, TMA Pathology and Cytology Routine Vaginal discharge Ordered: 11/22/2023 [facility] Work Phone: Comment on above: Ordered: 11/22/2023 Immunizations Immunization Date Immunization Notes Care Provider [facility] 12-09-2019 diphtheria, tetanus toxoids and pertussis vaccine Lorene ROMAN Work Phone: [facility] 12-09-2019 measles, mumps and rubella virus vaccine Lorene Hemmer PA Work Phone: [facility] 05-30-2000 diphtheria, tetanus toxoids and acellular pertussis vaccine, unspecified formulation Lorene Hemmer PA Work Phone: [facility] Work Phone: 05-30-2000 measles, mumps and rubella virus vaccine Lorene Hemmer PA Work Phone: [facility] 05-30-2000 poliovirus vaccine, inactivated Lorene Hemmer PA Work Phone: [facility] 03-30-2000 influenza, seasonal, injectable Lorene Hemmer PA Work Phone: [facility] 03-30-2000 influenza virus vaccine, unspecified formulation Lorene Hemmer PA Work Phone: [facility] 09-12-1998 haemophilus influenz ae type b vaccine, conjugate unspecified formulation Lorene Hemmer PA Work Phone: [facility] 11-28-1996 diphtheria, tetanus toxoids and acellular pertussis vaccine, unspecified formulation Lorene Hemmer PA Work Phone: [facility] 11-28-1996 haemophilus influenz ae type b vaccine, conjugate unspecified formulation Lorene Hemmer PA Work Phone: [facility] 11-28-1996 measles, mumps and rubella virus vaccine Lorene Hemmer PA Work Phone: [facility] 10-27-1996 trivalent poliovirus vaccine, live, oral Lorene Hemmer PA Work Phone: [facility] 01-31-1996 DTP-Haemophilus influenzae type b conjugate vaccine Lorene Hemmer PA Work Phone: [facility] 01-31-1996 hepatitis B vaccine, pediatric or pediatric/adolescent dosage Lorene Hemmer PA Work Phone: [facility] 01-31-1996 trivalent poliovirus vaccine, live, oral Lorene Hemmer PA Work Phone: [facility] 1995 DTP-Haemophilus influenzae type b conjugate vaccine Lorene Hemmer PA Work Phone: [facility] 1995 trivalent poliovirus vaccine, live, oral Lorene Welchstan ROMAN Work Phone: [facility] 1995 DTP-Haemophilus influenzae type b conjugate vaccine Lorene Welchstan ROMAN Work Phone: [facility] 1995 hepatitis B vaccine, pediatric or pediatric/adolescent dosage Lorene ROMAN Work Phone: [facility] 1995 haemophilus influenz ae type b vaccine, conjugate unspecified formulation Lorenedanielle ROMAN Work Phone: [facility] 1995 hepatitis B vaccine, pediatric or pediatric/adolescent dosage Lorenedanielle ROMAN Work Phone: [facility] Payers Date Payer Category Payer [facility] O (unspecified) [id number] 2023 Private Health Insurance [id number] 2022 Private Health Insurance [id number] 2022 Self-pay 2022 Unknown [id number] 1995 Unknown [id number] 1995 Unknown [id number] 2.16.84 0.1.538087.3.579.2.593 1995 Unknown [id number] 2.16.84 0.1.182610.3.579.2.593 1995 Unknown [id number] 2.16.84 0.1.483914.3.579.2.593 1995 Unknown [id number] 2.16.840.1.588567.3.579.2.1259 1995 Unknown [id number] 2.16.840.1.853720.3.579.2.1259 1995 Unknown [id number] 2.16.840.1.219875.3.579.2.1258 1995 Unknown [id number] 2.16840.1.289521.3.579.2.1258 1995 Unknown [id number] 2.16840.1.192850.3.579.2.1258 1995 Unknown [id number] 2.16840.1.443566.3.579.2.1258 1995 Unknown [id number] 2.16840.1.170335.3.579.2.1258 1995 Unknown [id number] 2.16840.1.720850.3.579.2.1258 1995 Unknown [id number] 2.16840.1.084112.3.579.2.1258 1995 Unknown [id number] 2.840.1.833063.3.579.2.1258 1995 Unknown [id number] 2.0.1.463716.3.579.2.1258 1995 Unknown [id number] 2.840.1.556300.3.579.2.1258 1995 Unknown [id number] 2.840.1.969882.3.579.2.1258 1995 Unknown [id number] 2.16840.1.467924.3.579.2.1258 1995 Unknown [id number] 2.840.1.255826.3.579.2.1258 1995 Unknown [id number] 2.16840.1.914375.3.579.2.1259 1959 Unknown [id number] 1959 Unknown [id number] 1959 Unknown [id number] Unknown [id number] 2.840.1.717655.3.579.2.531 Social History Date Type Detail Facility Tobacco smoking stat [facility] Unknown if ever smoked [facility] Work Phone: Start: 1995 Sex Assigned At Female [facility] Start: 09-08-2023 End: 11-23-2023 Sex Assigned At [facility] Start: 11-24-2022 Tobacco smoking status NHIS Never smoked tobacco [facility] Start: 11-24-2022 Tobacco use and exposure Smokeless tobacco non-user [facility] Start: 11-23-2023 End: 04-10-2024 Alcoholic beverage intake [facility] ([facility] Start: 09-08-2023 End: 11-23-2023 [facility] beverage [facility] How often do you nee d to have someone help you when you read instructions, pamphlets, or other written material from your doctor or pharmacy [SILS] Never [facility] Do you belong to any clubs or organizations such as lutheran groups, unions, fraternal or athletic groups, or [...] 04-10-2024 ABEL Carroll - 04/10/2024 10:20 AM YOANNA Rivas 04/03/2024 10:30 AM ABEL Stinson - 03/19/2024 [...] ABEL Carroll documented in this encounter [facility] 04-03-2024 History of Presen t illness Narrative [...] nursing note reviewed. Exam conducted with a profile grinder present. Vitals: Estimated body mass index is [...] Burger DO documented in this encounter [facility] 03-19-2024 History of Presen t illness Narrative [...] ABEL Carroll documented in this encounter [facility] 03-05-2024 History of Presen t illness Narrative Reason for Appointment: Patient ID: Nzaia Ruiz is a 28 y.o. female who [...] ABEL Carroll documented in this encounter [facility] 03-01-2024 History of Presen t illness [...] ABEL Carroll documented in this encounter [facility] 02-20-2024 History of Presen t illness [...] nursing note reviewed. Exam conducted with a profile grinder present. Vitals: Estimated body mass index is [...] Burger DO documented in this encounter [facility] 01-17-2024 History of Presen t illness [...] nursing note reviewed. Exam conducted with a profile grinder present. Vitals: Estimated body mass index is [...] ABEL Carroll documented in this encounter [facility] 12-20-2023 History of Presen t illness [...] ABEL Carroll documented in this encounter [facility] 11-25-2023 Telephone encount er Note Understood. [facility] 11-25-2023 Miscellaneous Notes Formattin g of this note might be different from the original. Understood. Nazia called stating her ob just wants her on Effexor instead of buspirone so that's what she'll be on documented in this encounter [facility] 11-25-2023 Telephone encount er Note Nazia called stating her ob just wants her on Effexor instead of buspirone so that's what she'll be on [facility] 11-23-2023 History of Presen t illness Narrative Images from the original note were not included. Subjective Patient ID: Nazia Riuz is a 28 y.o. female who presents [...] Follow Up. documented in this encounter [facility] 11-22-2023 History of Presen t illness [...] nursing note reviewed. Exam conducted with a profile grinder present. Vitals: Estimated body mass index is [...] Burger DO documented in this encounter [facility] 05-11-2022 Evaluation note Encounter Date Diagnosis [...] Instructed patient to wear brace for activities. [employer] Other Evaluation noteNo assessment information available [facility] Work Phone: Evaluation note* Diagnosis Encounter for [...] History learning disability Surgical History tymponostomy x7 [employer] Other Summary Purpose Family History No Family History Records FoundNo Family History Records FoundNo Family History Records Found Advance Directives No Advanced Directives Records FoundNo Advanced Directives Records FoundNo Advanced Directives Records Found Additional Source Comments INFORMATION SOURCE (unrecogn ized section and content) DATE CREATED AUTHOR 09/12/2021 [facility] DATE CREATED AUTHOR AUTHOR'S ORGANIZ ATION 05/21/2022 [facility] DATE CREATED AUTHOR AUTHOR'S ORGANIZ ATION 04/11/2024 [facility] [employer] Care Teams (unrecognized sec tion and content) Team Status: Inactive Member Role Status Dates Dee Buchanan MD Attending Provider Active Dynamo Repairer Relationship Specialty Start Date End Date Verito Lamb MD [address] [facility] [address] [place] [address] PCP - General Family Medicine 10/18/22 Dynamo Repairer Relationship Specialty Start Date End Date Verito Lamb MD [address] [facility] [address] [place] [address] PCP - General Family Medicine 10/18/22 Dynamo Repairer Relationship Specialty Start Date End Date Verito Lamb MD [address] [facility] [address] [place] [address] PCP - General Family Medicine 10/18/22 Dynamo Repairer Relationship Specialty Start Date End Date Verito Lamb MD [address] [facility] [address] [place] [address] PCP - General Family Medicine 10/18/22 Dynamo Repairer Relationship Specialty Start Date End Date Verito Lamb MD [address] [facility] [address] [place] [address] PCP - General Family Medicine 10/18/22 Dynamo Repairer Relationship Specialty Start Date End Date Verito Lamb MD [address] [facility] [address] [place] [address] PCP - General Family Medicine 10/18/22 Dynamo Repairer Relationship Specialty Start Date End Date Verito Lamb MD [address] [facility] [address] [place] [address] PCP - General Family Medicine 10/18/22 Dynamo Repairer Relationship Specialty Start Date End Date Verito Lamb MD [address] [facility] [address] [place] [address] PCP - General Family Medicine 10/18/22 Dynamo Repairer Relationship Specialty Start Date End Date Verito Lamb MD [address] [facility] [address] [place] [address] PCP - General Family Medicine 10/18/22 Dynamo Repairer Relationship Specialty Start Date End Date Verito Lamb MD [address] [facility] [address] [place] [address] PCP - General Family Medicine 10/18/22 Dynamo Repairer Relationship Specialty Start Date End Date Verito Lamb MD [address] [facility] [address] [place] [address] PCP - General Family Medicine 10/18/22 Dynamo Repairer Relationship Specialty Start Date End Date Verito Lamb MD [address] [facility] [address] [place] [address] PCP - General Family Medicine 10/18/22 Dynamo Repairer Relationship Specialty Start Date End Date Verito Lamb MD [address] [facility] [address] [place] [address] PCP - General Family Medicine 10/18/22 Dynamo Repairer Relationship Specialty Start Date End Date Verito Lamb MD [address] [facility] [address] [place] [address] PCP - General Family Medicine 10/18/22 Goals [...] BE BASED ON THE PRIMARY CLINICAL RECORDS. [employer] [facility]. provides no warranty or guarantee of the accuracy or completeness of information in this document.
[2024-04-18 11:15] VITALS: BP 130/85; PULSE 67
== END 2024-04-18 11:40 | disposition home or self-care (01) ==
LOC: FBCO 05:02 → FBC 11:06
PROVIDERS: PCP Family Medicine; Visit Provider Obstetrics & Gynecology
DX: O16.3 Unspecified maternal hypertension, third trimester (principal)
CPT/HCPCS: 59025

== ENCOUNTER 2024-04-21 14:44 | Outpatient (OUT) | payer OTHER, SELFPAY ==
--- OUTSIDE RECORDS SUMMARY | 2024-04-21 14:48 | XMS_ITS | CCD ---
Author Organization [facility] Care Team Providers Care Customer Retention Specialist Name Role Phone JENNYFER, DR OSPINA Admitting [...] Primary Care Provider AMANDA MARTINEZ Attending Unavailable ANAI BURGER Attending Unavailable HEMLORENE MANDEL Attending Unavailable HEMMERLORENE Attending Unavailable ISAACSANGEETHA PARADA Attending Unavailable AMANDA MARTINEZ Attending Unavailable JENNYFERANAI Attending Unavailable JENNYFERANAI OLIVA Attending Unavailable HEMLORENE MANDEL Attending Unavailable AMANDA MARTINEZ Attending Unavailable AMANDA MARTINEZ Attending Unavailable JENNYFERANAI Attending Unavailable AMANDA MARTINEZ Attending Unavailable JUAN AMANDA Attending Unavailable AMANDA MARTINEZ Attending Unavailable JENNYFERANAI OLIVA Attending Unavailable Allergies Allergy Classification Reported Allergen(s) Allergy Type Date of Onset Reaction(s) Facility (1 source) Cephalexin Drug Allergy [facility] Repository (20 sources) ARIPiprazole Drug Allergy 3 [facility] Healthcare Work Phone: (20 sources) cariprazine Drug Allergy 3 [facility] Healthcare (20 sources) Cephalexin Drug Allergy 3 Unknown [facility] Healthcare (20 sources) Propofol Drug Allergy 3 Unknown [facility] Healthcare (20 sources) Flavoring Agent Allergy to substance 3 Unknown [facility] Healthcare (20 sources) Mosquito (Diagnostic) Drug Allergy 3 Unknown [facility] Healthcare (10 sources) Flavoring Agent (Non-Screening) Allergy to substance 3 Unknown [facility] Medications Current Medications Medication [...] Active labetalol hydrochloride 100 mg oral tablet (19 sources) beta-Adrenergic Adina Start: 024 End: 025 [...] omeprazole 20 mg delayed release oral capsule (9 sources) Proton Pump Inhibitor Start: 04-03-2024 End: [...] 08-18-2022 Chronic Other and delivery including normal (20 sources) Second trimester ; Translations: [Encounter for [...] [36 weeks gestation of ] 04-10-2024 Episodic Residual codes; unclassified (2 sources) Gestation period, 37 weeks; Translations: [37 weeks gestation of ] 04-17-2024 Episodic Unclassified (1 source) Pain in left [...] Range Facility Urinalysis macro (dipstick) panel (U)on 04-17-2024 Bilirubin, UA Negative Negative - 4(70) +++ mg/dL [facility] Blood, UA Negative Negative - 50 Neno/mcL [facility] Clarity, UA Clear [facility] re Color[facility] Gl[facility], [facility]A Negative Negative - 1999(110) ++++ mg/dL [facility] Interpretation and review of laboratory results Abnormal [facility] re Ketones, UA Negative Negative - 160(16) ++++ mg/dL [facility] Leukocytes, UA Trace Negative - 500+++ Virgie/mcL [facility] Nitrite, UA Negative Negative - Positive [facility] pH, UA 7 5 - 9 [facility] e Protein, UA Positive Negative - 1999(20) ++++ mg/dL [facility] Comment on above: 100 Spec Grav, UA 1.02 1 - 1.03 [facility] Urobilinogen, UA 0.2 0.2 - 12 mg/dL [facility] ALL MISCELLANEOUS TESTon MISCELLANEOUS TEST COMMENT . [facility] ealthcare Comment on above: Test Ordered: [id number] Strep Gp B Culture+Rflx Strep Gp B Culture+Rflx Negative CB Reference Range: Negative Centers for Disease Control and Prevention (CDC) and [place] Congress of Obstetricians and Gynecologists (ACOG) guidelines [...] resistance to clindamycin is noted. Performed at: [address] [id number] Sales Service Supervisor: Nadir Schaffer PhD, Phone: [phone] GROUP B STREP [id number] Group B Streptococcus Colonization Detection Culture With Re [facility] Urinalysis macro (dipstick) panel (U)on 03-19-2024 Bilirubin, UA Positive Negative - 4(70) +++ mg/dL [facility] Comment on above: small Blood, UA Positive Negative - 50 Neno/mcL [facility] Comment on above: trace Clarity, UA Cloudy [facility] re Color, UA Marilyn [facility] Glucose, UA Negative Negative - 1999(110) ++++ mg/dL [facility] Interpretation and review of laboratory results Abnormal [facility] re Ketones, UA Negative Negative - 160(16) ++++ mg/dL [facility] Leukocytes, UA Trace Negative - 500+++ Virgie/mcL [facility] Nitrite, UA Negative Negative - Positive [facility] pH, UA 6 5 - 9 [facility] Protein, UA Positive Negative - 1999(20) ++++ mg/dL [facility] Comment on above: 30 Spec Grav, UA 1.03 1 - 1.03 [facility] Urobilinogen, UA 0.2 0.2 - 12 mg/dL [facility] Urinalysis macro (dipstick) panel (U)on 03-05-2024 Bilirubin, UA Negative Negative - 4(70) +++ mg/dL [facility] Blood, UA Negative Negative - 50 Neno/mcL [facility] Clarity, UA Clear [facility] Color, UA Yellow [facility] Glucose, UA Negative Negative - 1999(110) ++++ mg/dL [facility] Interpretation and review of laboratory results Abnormal [facility] re Ketones, UA Negative Negative - 160(16) ++++ mg/dL [facility] Leukocytes, UA Positive Negative - 500+++ Virgie/mcL [facility] Comment on above: small Nitrite, UA Negative Negative - Positive [facility] pH, UA 6 5 - 9 [facility] e Protein, UA Negative Negative - 1999(20) ++++ mg/dL [facility] Spec Grav, UA 1.015 1 - 1.03 [facility] Urobilinogen, UA 0.2 0.2 - 12 mg/dL [facility] APTTon 03-02-2024 aPTT Coag (Bld) [Time] 23.9 s [facility] No Panel Informationon 03-02 [facility] SRMCOH PROTHROMBIN TIME INR W/O COUMon 03-02-2024 PT Coag (PPP) [Time] 9.9 s [facility] TBH INR 0.93 [facility] e Comment on above: DESIRED INR: 2.0-3.0 CONDITIONS NOT LISTED BELOW 2.5-3.5 FOR PROSTHETIC HEART VALVE REPLACEMENT 2.5-3.5 RECURRENT THROMBOSIS Urinalysis macro (dipstick) panel (U)on 03-01-2024 Bilirubin, UA Negative Negative - 4(70) +++ mg/dL [facility] Blood, UA Negative Negative - 50 Neno/mcL [facility] Clarity, UA Clear [facility] re Color, UA Yellow [facility] e Glucose, UA Negative Negative - 1999(110) ++++ mg/dL [facility] Interpretation and review of laboratory results Abnormal [facility] re Ketones, UA Negative Negative - 160(16) ++++ mg/dL [facility] Leukocytes, UA Positive Negative - 500+++ Virgie/mcL [facility] Comment on above: small Nitrite, UA Negative Negative - Positive [facility] pH, UA 7 5 - 9 [facility] e Protein, UA Trace Negative - 1999(20) ++++ mg/dL [facility] Spec Grav, UA 1.02 1 - 1.03 [facility] Urobilinogen, UA 0.2 0.2 - 12 mg/dL [facility] GLUCOSE 1 HOURon 01-25-2024 Glucose [Mass/Vol] 131 mg/dL High NINF - 13 0 mg/dL [facility] Interpretation and review of laboratory results Abnormal [facility] Urinalysis macro (dipstick) panel (U)on 01-17-2024 Bilirubin, UA Negative Negative - 4(70) +++ mg/dL [facility] Blood, UA Negative Negative - 50 Neno/mcL [facility] Healthcare Clarity, UA Clear [facility] re Color, UA Yellow [facility] Glucose, UA Negative Negative - 1999(110) ++++ mg/dL [facility] Interpretation and review of laboratory results Abnormal [facility] re Ketones, UA Negative Negative - 160(16) ++++ mg/dL [facility] Leukocytes, UA Trace Negative - 500+++ Virgie/mcL [facility] Healthcare Nitrite, UA Negative Negative - Positive [facility] pH, UA 6 5 - 9 [facility] e Protein, UA Negative Negative - 1999(20) ++++ mg/dL [facility] Spec Grav, UA 1.02 1 - 1.03 [facility] Urobilinogen, UA 1.0 0.2 - 12 mg/dL [facility] Urinalysis macro (dipstick) panel (U)on 12-20-2023 Bilirubin, UA Negative Negative - 4(70) +++ mg/dL [facility] Blood, UA Negative Negative - 50 Neno/mcL [facility] Healthcare Clarity, UA Clear [facility] re Color, UA Yellow [facility] Glucose, UA Negative Negative - 1999(110) ++++ mg/dL [facility] Interpretation and review of laboratory results Abnormal [facility] re Ketones, UA Negative Negative - 160(16) ++++ mg/dL [facility] Healthcare Leukocytes, UA Trace Negative - 500+++ Virgie/mcL [facility] Healthcare Nitrite, UA Negative Negative - Positive [facility] pH, UA 6.5 5 - 9 [facility] Protein, UA Negative Negative - 1999(20) ++++ mg/dL [facility] Healthcare Spec Grav, UA 1.025 1 - 1.03 [facility] Health care Urobilinogen, UA 0.2 0.2 - 12 mg/dL [facility] AFP, SERUM, OPEN SPINA BIFID Aon 12-11-2023 AFP MOM 0.79 . [facility] AFP VALUE 34.7 ng/mL . [facility] COMMENT: Comment . [facility]iantART e Comment on above: Treva Gong , Ph.D., [facility] Director References: Available Upon Request. Multiples Of Median Cutoffs For AFP Elevations Banuelos 2.5 Black 2.8 IDD 2.0 Twins 4.5 Abbreviation Definitions IDD - Insulin Dep Diabetes OSBR - Open Spina Bifida Risk For further inquiries contact [employer] at [phone]. This test was developed and its performance characteristics determined by [employer]. It has not been cleared or approved by the Food and Drug Administration. Performed at: [facility] [address] [place], [place] [id number] Sales Service Supervisor: Maira Jones [facility], Phone: [phone] GEST. AGE ON COLLECTION DATE 19.3 . weeks [facility] GESTAT. AGE BASED ON LMP . [facility] Comment on above: Recalculations are n ot recommended when gestational dating by LMP and ultrasound are within 10 days. INSULIN DEP DIABETES No . [facility] INTERPRETATION Comment . [facility] Comment on above: Interpretation: [...] Customer Services to discuss available options. The [place] [employer]ians [employer]nec[employer] recommends amniocentesis be offered to women age 35 and older. [age] [facility] [employer] MULTIPLE GESTATION No . [facility]alth[facility] [place] [address] [place] [id number] . [facility] RACE . [facility] RESULTS Report . [facility] TEST RESULTS: Negative . [facility] care WEIGHT 188 . lbs [facility] Health[facility] e N N LMP [id number] 6 16 N 1 Y 188 N N N N N White/ [facility] deviantART e IGP,APTIMA HPV,AGE GDLNon AGE GDLN ACOG TESTING Note . [facility] Comment on above: TESTS RESULT FLAG UN ITS REF RANGE LAB Clinician Provided Cytology Information Source.............Cervix No. of containers..01 ThinPrep Vial Age Kikio LISSYOG Madonna... FLAG LEGEND: L-Low Normal,H-High Normal,LL-Alert Low,HH-Alert High <-Panic Low,>-Panic High,A-Abnormal,AA-Critical Abnormal Performed at: 01 =G [address] [address] Tierra Morales MD, IGP, RFX APTIMA HPV ASCU Note . [facility] Comment on above: TESTS RESULT FLAG U NITS REF RANGE LAB DIAGNOSIS: 02 NEGATIVE FOR INTRAEPITHELIAL LESION OR MALIGNANCY. Specimen adequacy: 02 Satisfactory for evaluation. No endocervical component is identified. Performed by: Anurag Blanc Circuit Breaker Supervisor ([facility]) . 02 Note: Note 02 The [...] <-Panic Low,>-Panic High,A-Abnormal,AA-Critical Abnormal Performed at: [address] [address] Tierra Morales MD, Performed at: = - [address] [id number] Sales Service Supervisor: Tierra Morales MD, Phone: [phone] Performed at: [facility] [address] [id number] Sales Service Supervisor: Tierra Morales MD, Phone: [phone] SPATULA-ALONE CERVIX [facility] deviantART e Urinalysis macro (dipstick) panel (U)on 11-22-2023 Bilirubin, UA Negative Negative - 4(70) +++ mg/dL [facility] Blood, UA Negative Negative - 50 Neno/mcL [facility] [employer] Clarity, UA Clear [facility] re Color, UA Yellow [facility] Glucose, UA Negative Negative - 2000(110) ++++ mg/dL [facility] Interpretation and review of laboratory results Normal [facility] re Ketones, UA Negative Negative - 160(16) ++++ mg/dL [facility] Leukocytes, UA Negative Negative - 500+++ Virgie/mcL [facility] Nitrite, UA Negative Negative - Positive [facility] pH, UA 6.5 5 - 9 [facility] Healthcar e Protein, UA Negative Negative - 2000(20) ++++ mg/dL [facility] Spec Grav, UA 1.025 1 - 1.03 [facility] care Urobilinogen, UA 1.0 0.2 - 12 mg/dL [facility] XR wrist LT min 3V*on 2022 XR wrist LT min 3V* [place] [address] XRay Report Signed Patient: Nazia Harper MR#: [id number] 67 : 1995 Acct:[id number] Age/Sex: 26 / F ADM Date: 05/11/22 Loc: [facility] Room: Type: [facility] Attending Dr: Dee Buchanan MD Copies to: [...] NO ACUTE BONY PROCESS. Impression dictated by: Gwen Ocampo Jr.OJuanis05/11/2022 12:18 PM Dictation Location: [place] [address] Transcribed By: [facility] 05/11/22 1218 Dictated By: Tan Travis Jr, DO 05/11/22 1217 Signed By: 05/11/22 1218 Normal [facility] XR wrist LT min 3V* [facility] [employer] Other XR wrist LT min 3V* [facility] [employer] Other XR wrist LT min 3V* [address] [place] [address] [employer] Other XR wrist LT min 3V* [address] [employer] Other XR wrist LT min 3V* XRay Report [employer] Other XR wrist LT min 3V* Signed [employer] Other XR wrist LT min 3V* Patient: Nazia Harper MR#: [id number] [employer] Other XR wrist LT min 3V* 67 [employer] Other XR wrist LT min 3V* : 1995 Acct:[id number] [employer] Other XR wrist LT min 3V* Age/Sex: 26 / F ADM Date: 05/11/22 [employer] Other XR wrist LT min 3V* Loc: [facility] Room: Type: [facility] [employer] Other XR wrist LT min 3V* Attending Dr: Dee Buchanan MD [employer] Other XR wrist LT min 3V* Copies to: Dee Buchanan MD [employer] Other XR wrist LT min 3V* Ordering Provider: Dee Buchanan MD [employer] Other XR wrist LT min 3V* Date of Service: 05/11/22 [employer] Other XR wrist LT min 3V* XR/XR wrist LT min 3V*: PAIN [employer] Other XR wrist LT min 3V* LEFT WRIST - 4 views [employer] Other XR wrist LT min 3V* CLINICAL HISTORY: Ganglion cyst posterior aspect at the level of the carpals. [employer] Other XR wrist LT min 3V* COMPARISON: None [employer] Other XR wrist LT min 3V* FINDINGS: [employer] Other XR wrist LT min 3V* No focal soft tissue abnormality is noted. No acute bony process is seen. Carpal bones appear [employer] Other XR wrist LT min 3V* unremarkable. [employer] Other XR wrist LT min 3V* XR/XR wrist LT min 3V* [employer] Other XR wrist LT min 3V* IMPRESSION: [employer] Other XR wrist LT min 3V* NO ACUTE BONY PROCESS. [employer] Other XR wrist LT min 3V* Impression dictated by: Tan Travis Jr., GwenOJuanis05/11/2022 12:18 PM [employer] Other XR wrist LT min 3V* Dictation Location: [place] [address] [employer] Other XR wrist LT min 3V* Transcribed By: PWS 05/11/22 [facility] [employer] Other XR wrist LT min 3V* Dictated By: Tan Travis Jr, DO 05/11/22 Pending sale to [facility] [employer] Other XR wrist LT min 3V* Signed By: [employer] Other XR wrist LT min 3V* 05/11/22 [facility] [employer] Other PAP ACOG PANEL 2: 21 to 29on 08-15-2021 . . Normal [facility] Comment on above: Result Comment: Perf ormed at: BA Performed By: #### [id number] #### [facility] [address] [address] [address] Alek Fu Age Gdln ACOG Testing - Normal [facility] Comment on above: Performed By: #### [id number] #### [facility] [address] [place], [place] [address] Dr. Alek Fu DIAGNOSIS: Comment Normal [facility] Comment on above: Result Comment: NEGA TIVE FOR INTRAEPITHELIAL LESION OR MALIGNANCY. Performed at: BA Performed By: #### [id number] #### [facility] [address] [place] [address] Dr. Alek Fu Methodology: Comment [facility] Comment on above: Result Comment: This liquid based ThinPrep(R) pap test was screened with the use of an image guided system. Performed at: WB Performed By: #### [id number] #### [facility] [address] [place] [address] Dr. Alek Fu Note: Comment Normal [facility] Comment on above: Result Comment: The Pap smear is a screening test designed to aid in the detection of premalignant and malignant conditions of the uterine cervix. It is not a diagnostic procedure and should not be used as the sole means of detecting cervical cancer. Both false-positive and false-negative reports do occur. . Performed at: WB Performed By: #### [id number] #### [facility] [address] [place] [address] Dr. Alek Fu Performed by: Comment Normal [facility] Comment on above: Result Comment: Elen Carrillo, Circuit Breaker Supervisor (ASCP) Performed at: BA Performed By: #### [id number] #### [facility] [address] [place] [address] Dr. Alek Fu Reflex Criteria: Comment [facility] Comment on above: Result Comment: The HPV DNA reflex criteria were not met with this specimen result therefore, no HPV testing was performed. . Performed at: BA Performed By: #### 4 [id number] #### [facility] [address] [place] [address] Dr. Alek Fu Specimen adequacy: Comment Normal [facility] Comment on above: Result Comment: Sati sfactory for evaluation. Endocervical and/or squamous metaplastic cells (endocervical component) are present. Performed at: BA Performed By: #### [id number] #### [facility] [address] [place] [address] Dr. Alek Fu XR KNEE SABRINA 4V [...] CONCLUSION: No acute abnormality Electronically authenticated by: ZRUI PHOENIX Date: 2021-07-17 17:09 Normal [facility] CBC AUTO DIFFon 12-08-2020 BASO # 0.0 103/ul Normal 0.0-0.1 [facility] Comment on above: Performed By: #### C BC #### [facility] [address] [place] [address] Dr. Alek Fu Basophils/100 WBC (Bld) 0.2 % Normal 0.2-2.0 [facility] Comment on above: Performed By: #### C BC #### [facility] [address] [place] [address] Dr. Alek Fu EO # 0.0 103/ul Normal 0.0-0.7 [facility] Comment on above: Performed By: #### C BC #### [facility] [address] [place] [address] Dr. Alek Fu Eosinophils/100 WBC (Bld) 0.6 % Critically low 0.9-7.0 [facility] Comment on above: Performed By: #### C BC #### [facility] [address] [place] [address] Dr. Alek Fu Erythrocyte distribution width (RBC) [Ratio] 12.4 % Normal 11.0-15.0 [facility] Comment on above: Performed By: #### C BC #### [facility] [address] [place] [address] Dr. Alek Fu Hematocrit (Bld) [Volume fraction] 44.3 % Normal 36.0-48.0 [facility] Comment on above: Performed By: #### C BC #### [facility] [address] [place] [address] Dr. Alek Fu Hemoglobin (Bld) [Mass/Vol] 15.4 g/dL Normal 12.0-16.0 [facility] Comment on above: Performed By: #### C BC #### [facility] [address] [place] [address] Dr. Alek Fu IG # 0.04 10e3/ul Critically high 0.00-0.03 [facility] Comment on above: Performed By: #### C BC #### [facility] [address] [place] [address] Dr. Alek Fu IG % 0.6 % Critically high 0.0-0.5 [facility] Comment on above: Performed By: #### C BC #### [facility] [address] [place] [address] Dr. Alek Fu LYMPH # 3.2 103/ul Normal 1.2-3.8 [facility] Comment on above: Performed By: #### C BC #### [facility] [address] [place] [address] Dr. Alek Fu Lymphocytes/100 WBC (Bld) 50.2 % Normal 20.5-60.0 [facility] Comment on above: Performed By: #### C BC #### [facility] [address] [place] [address] Dr. Alek Fu MANUAL DIFF REQ NO Normal [facility] Comment on above: Performed By: #### C BC #### [facility] [address] [place] [address] Dr. Alek Fu MCH (RBC) [Entitic mass] 28.7 pg Normal 26.7-34.0 [facility] Comment on above: Performed By: #### C BC #### [facility] [address] [place] [address] Dr. Alek Fu MCHC (RBC) [Mass/Vol] 34.8 g/dL Normal 29.9-35.2 [facility] Comment on above: Performed By: #### C BC #### [facility] [address] [place] [address] Dr. Alek Fu MCV (RBC) [Entitic vol] 82.5 fL Normal 81.0-99.0 [facility] Comment on above: Performed By: #### C BC #### [facility] [address] [place] [address] Dr. Alek Fu MONO # 0.6 103/ul Normal 0.3-0.8 [facility] Comment on above: Performed By: #### C BC #### [facility] [address] [place] [address] Dr. Alek Fu Monocytes/100 WBC (Bld) 10.0 % Normal 1.7-12.0 [facility] Comment on above: Performed By: #### C BC #### [facility] [address] [place] [address] Dr. Alek Fu NEUT # 2.4 103/ul Normal 1.4-6.5 [facility] Comment on above: Performed By: #### C BC #### [facility] [address] [place] [address] Dr. Alek Fu Neutrophils/100 WBC (Bld) 38.4 % Critically low 43.0-75.0 [facility] Comment on above: Performed By: #### C BC #### [facility] [address] [place] [address] Dr. Alek Fu Platelet mean volume (Bld) [Entitic vol] 9.9 fL Normal 9.5-13.5 [facility] Comment on above: Performed By: #### C BC #### [facility] [address] [place] [address] Dr. Alek Fu PLT 206 103/ul Normal 150-450 [facility] Comment on above: Performed By: #### C BC #### [facility] [address] [place] [address] Dr. Alek Fu RBC 5.37 106/ul Normal 4.20-5.40 [facility] Comment on above: Performed By: #### C BC #### [facility] [address] [place] [address] Dr. Alek Fu WBC 6.3 103/ul Normal 4.0-11.0 [facility] Comment on above: Performed By: #### C BC #### [facility] [address] [place] [address] Dr. Alek Fu ER URINE PROFILEon 1 Bilirubin Ql (U) Negative Normal NEGATIVE [facility] Comment on above: Performed By: #### E RUR #### [facility] [address] [place] [address] Dr. Alek Fu Clarity (U) CLEAR Normal CLEAR [facility] Comment on above: Performed By: #### E RUR #### [facility] [address] [place] [address] Dr. Alek Fu Color (U) YELLOW Normal YELLOW [facility] Comment on above: Performed By: #### E RUR #### [facility] [address] [place] [address] Dr. Alek WOOD A micrscopic examination will be performed if indicated. Normal [facility] Comment on above: Performed By: #### E RUR #### [facility] [address] [place] [address] Dr. Alek Fu Glucose Ql (U) Negative Normal NEGATIVE [facility] Comment on above: Performed By: #### E RUR #### [facility] [address] [place] [address] Dr. Alek Fu Hemoglobin Ql (U) TRACE-INTACT Abnormal NEGATIVE [facility] Comment on above: Performed By: #### E RUR #### [facility] [facility] [address] [place] [address] Dr. Alek Fu Ketones Ql (U) TRACE Abnormal NEGATIVE [facility] Comment on above: Performed By: #### E RUR #### [facility] [address] [place] [address] Dr. Alek Fu LEUKOCYTES Negative Normal NEGATIVE [facility] Comment on above: Performed By: #### E RUR #### [facility] [address] [place] [address] Dr. Alek Fu Nitrite Ql (U) Negative Normal NEGATIVE [facility] Comment on above: Performed By: #### E RUR #### [facility] [address] [place] [address] Dr. Alek Fu pH (U) 6.0 [pH] Normal 5-9 [facility] Comment on above: Performed By: #### E RUR #### [facility] [address] [address] [address] Alek Fu SPEC GRAVITY 1.015 Normal 1.005-<=1.025 [facility] Comment on above: Performed By: #### E RUR #### [facility] [address] [address] [address] Alek Fu UA PROTEIN Negative Normal NEGATIVE/ TRACE [facility] Comment on above: Performed By: #### E RUR #### [facility] [address] [address] [address] Alek Fu UR MICRO IND NOT INDICATED Normal [facility] Comment on above: Performed By: #### E RUR #### [facility] [address] [place] [address] Dr. Alek Fu Urobilinogen Qn (U) 0.2 {Roya'U}/dL Normal 0.2 - 1.0 [facility] Comment on above: Performed By: #### E RUR #### [facility] [address] [place] [address] Dr. Alek Fu URon 12-08-2020 , QUAL Negative Normal NEGATIVE [facility] Comment on above: Performed By: #### P REGU #### [facility] [address] [place] [address] Dr. Alek Fu PROF CHEM 8 (BAS METB)on Anion gap [Moles/Vol] 13.0 mmol/L Normal [facility] Comment on above: Performed By: #### B MP #### [facility] [address] [place] [address] Dr. Alek Fu Calcium [Mass/Vol] 9.0 mg/dL Normal 8.4-10.2 [facility] Comment on above: Performed By: #### B MP #### [facility] [address] [place] [address] Dr. Alek Fu Chloride [Moles/Vol] 103 mmol/L Normal 98-107 [facility] Comment on above: Performed By: #### B MP #### [facility] [address] [address] [address] Alek Fu CO2 [Moles/Vol] 25.0 mmol/L Normal 22.0-30.0 [facility] Comment on above: Performed By: #### B MP #### [facility] [address] [address] [address] Alek Fu Creatinine [Mass/Vol] 0.96 mg/dL Normal 0.52-1.04 [facility] Comment on above: Performed By: #### B MP #### [facility] [address] [address] [address] Alek Fu EGFR-AF NIUEAN >60 Normal >=60 [facility] Comment on above: Performed By: #### B MP #### [facility] [address] [address] [address] Alek Fu EGFR-NON AF NIUEAN >60 Normal >=60 [facility] Comment on above: Performed By: #### B MP #### [facility] [address] [address] [address] Alek Fu Glucose [Mass/Vol] 99 mg/dL Normal 74-106 [facility] Comment on above: Performed By: #### B MP #### [facility] [address] [address] [address] Alek Fu Potassium [Moles/Vol] 3.0 mmol/L Critically low 3.4-5.0 [facility] Comment on above: Performed By: #### B MP #### [facility] [address] [address] [address] Alek Fu Sodium [Moles/Vol] 138 mmol/L Normal 137-145 [facility] Comment on above: Performed By: #### B MP #### [facility] [address] [address] [address] Alek Fu Urea nitrogen [Mass/Vol] 11.0 mg/dL Normal 7.0-17.0 [facility] Comment on above: Performed By: #### B MP #### [facility] [address] [address] [address] Alek Fu Urea nitrogen/Creatinin e [Mass ratio] 11.5 mg/mg Normal [facility] Comment on above: Performed By: #### B #### [facility] [address] [place], [place] [id number] Dr. Alek Fu Covid-19 PCR ([facility])on 11-19 SARS-CoV-2 (COVID-19) RNA SANTANA+probe Ql (Unsp spec) Detected Critically abnormal NOT DETECTED [facility] Comment on above: Result Comment: This test is not yet approved or cleared by the [place] FDA. When there are no FDA-approved or cleared tests available, and other criteria are met, FDA can make tests available under an emergency access mechanism called an Emergency Use Authorization (EUA). The EUA for this test is supported by the [place] of Health and Human Service's (HHS's) declaration [...] longer be used). Performed By: #### [facility] #### [facility] [address] [place] [address] Dr. Alek Fu Vital Signs Date Time Vital Sign Value Performing Clinician Mayelin cruz 04-17-2024 11:18-0500 Body mass index (BMI) [Ratio] 39.51 kg/m2 [email or web address] Work Phone: [facility] 04-17-2024 11:18-0500 Body weight 97.98 kg [email or web address] Work Phone: [facility] 04-17-2024 11:18-0500 Diastolic blood pressure 78 mm[Hg] [email or web address] Work Phone: [facility] 04-17-2024 11:18-0500 Systolic blood pressure 124 mm[Hg] Anai Jennyfer DO Work Phone: [facility] 04-10-2024 10:17-0500 Body mass index (BMI) [Ratio] 39.53 kg/m2 Amanda Juan PA Work Phone: [facility] 04-10-2024 10:17-0500 Body weight 98.03 kg Amanda Juan PA Work Phone: [facility] 04-10-2024 10:17-0500 Diastolic blood pressure 76 mm[Hg] Amanda Juan PA Work Phone: [facility] 04-10-2024 10:17-0500 Systolic blood pressure 116 mm[Hg] Amanda Ujan PA Work Phone: [facility] 03-19-2024 10:38-0500 Body mass index (BMI) [Ratio] 37.68 kg/m2 Amanda Juan PA Work Phone: [facility] 03-19-2024 10:38-0500 Body weight 93.44 kg Amanda Seminole PA Work Phone: [facility] 03-19-2024 10:38-0500 Diastolic blood pressure 76 mm[Hg] Amanda Juan PA Work Phone: [facility] 03-19-2024 10:38-0500 Systolic blood pressure 122 mm[Hg] Amanda Juan PA Work Phone: [facility] 03-05-2024 09:47-0500 Body mass index (BMI) [Ratio] 37.93 kg/m2 Amanda Juan PA Work Phone: [facility] 03-05-2024 09:47-0500 Body weight 94.08 kg Amanda Seminole PA Work Phone: [facility] 03-05-2024 09:47-0500 Diastolic blood pressure 74 mm[Hg] Amanda Juan PA Work Phone: [facility] 03-05-2024 09:47-0500 Systolic blood pressure 110 mm[Hg] Amanda Seminole PA Work Phone: [facility] 03-01-2024 11:46-0500 Body mass index (BMI) [Ratio] 37.57 kg/m2 Amanda Juan PA Work Phone: [facility] 03-01-2024 11:46-0500 Body weight 93.17 kg Amanda Juan PA Work Phone: [facility] 03-01-2024 11:46-0500 Diastolic blood pressure 90 mm[Hg] Amanda Juan PA Work Phone: [facility] 03-01-2024 11:46-0500 Systolic blood pressure 130 mm[Hg] Amanda Seminole PA Work Phone: [facility] 02-20-2024 10:07-0500 Body mass index (BMI) [Ratio] 37.68 kg/m2 Anai Jennyfer DO Work Phone: [facility] 02-20-2024 10:07-0500 Body weight 93.44 kg Anai Jennyfer DO Work Phone: [facility] 02-20-2024 10:07-0500 Diastolic blood pressure 80 mm[Hg] Anai Jennyfer DO Work Phone: [facility] 02-20-2024 10:07-0500 Systolic blood pressure 122 mm[Hg] Anai Jennyfer DO Work Phone: [facility] 01-17-2024 10:15-0400 Body mass index (BMI) [Ratio] 36 kg/m2 Amanda Seminole PA Work Phone: [facility] 01-17-2024 10:15-0400 Body weight 89.27 kg Amanda Juan PA Work Phone: [facility] 01-17-2024 10:15-0400 Diastolic blood pressure 70 mm[Hg] Amanda Juan PA Work Phone: [facility] 01-17-2024 10:15-0400 Systolic blood pressure 122 mm[Hg] Amanda Juan PA Work Phone: [facility] 12-20-2023 09:58-0400 Body mass index (BMI) [Ratio] 34.93 kg/m2 Amanda Juan PA Work Phone: [facility] 12-20-2023 09:58-0400 Body weight 86.64 kg Amanda Martinez PA Work Phone: [facility] 12-20-2023 09:58-0400 Diastolic blood pressure 76 mm[Hg] Amanda Vasquezey PA Work Phone: [facility] 12-20-2023 09:58-0400 Systolic blood pressure 124 mm[Hg] Amanda Martinez PA Work Phone: [facility] 11-23-2023 09:47-0400 Body height 157.5 cm Lorene Hemmer PA Work Phone: [facility] 11-23-2023 09:47-0400 Body mass index (BMI) [Ratio] 34.39 kg/m2 Lorene Hemmer PA Work Phone: [facility] 11-23-2023 09:47-0400 Body weight 85.28 kg Lorene Hemmer PA Work Phone: [facility] 11-23-2023 09:47-0400 Diastolic blood pressure 86 mm[Hg] Lorene Hemmer PA Work Phone: [facility] 11-23-2023 09:47-0400 Heart rate 81 /min Lorene Hemmer PA Work Phone: [facility] 11-23-2023 09:47-0400 Respiratory rate 16 /min Lorene Hemmer PA Work Phone: [facility] 11-23-2023 09:47-0400 SaO2% (BldA) [Mass fraction] 98 % Lorene Hemmer PA Work Phone: [facility] 11-23-2023 09:47-0400 Systolic blood pressure 124 mm[Hg] Lorene Hemmer PA Work Phone: [facility] 11-22-2023 09:29-0400 Body mass index (BMI) [Ratio] 34.41 kg/m2 Anai Jennyfer DO Work Phone: [facility] 11-22-2023 09:29-0400 Body weight 85.33 kg Anai Jennyfer DO Work Phone: [facility] 11-22-2023 09:29-0400 Diastolic blood pressure 74 mm[Hg] Anai Jennyfer DO Work Phone: [facility] 11-22-2023 09:29-0400 Systolic blood pressure 122 mm[Hg] Anai Jennyfer DO Work Phone: [facility] Encounters Encounter Date Encounter Type Care Provider Facility Start: 04-17-2024 End: 04-17-2024 Bamboo flowsheet Anai Jennyfer DO Work Phone: [facility] Start: 04-17-2024 End: 04-17-2024 Bamboo flowsheet Anai Jennyfer DO Work Phone: [facility] Start: 04-17-2024 End: 04-17-2024 ambulatory ANAI JENNYFER Not Available Start: 04-17-2024 End: 04-17-2024 flow sheet Anai Jennyfer DO Work Phone: [facility] Comment on above: Third trimester preg gregor; 37 weeks gestation of Start: 04-10-2024 End: 04-10-2024 Bamboo flowsheet Amanda ROMAN Work Phone: [facility] Start: 04-10-2024 End: 04-10-2024 Bamboo flowsheet Amanda ROMAN Work Phone: [facility] Start: 04-10-2024 End: 04-10-2024 flow sheet Amanda ROMAN Work Phone: [facility] Comment on above: Third trimester preg gregor; 36 weeks gestation of Start: 04-10-2024 End: 04-10-2024 ambulatory AMANDA MARTINEZ Not Available Start: 04-03-2024 End: 04-03-2024 Bamboo flowsheet Anai Jennyfer DO Work Phone: [facility] Start: 04-03-2024 End: 04-08-2024 Bamboo flowsheet Anai Jennyfer DO Work Phone: [facility] Start: 04-03-2024 End: 04-08-2024 Clinisync [...] encounter procedure Anai Jennyfer DO Work Phone: [facility] Start: 11-22-2023 End: 11-22-2023 Periodic preventive med est patient 18-39 yrs Anai Jennyfer DO Work Phone: [facility] Comment on above: Screening, , [...] Start: 05-11-2022 End: 05-11-2022 ambulatory Dee Buchanan Facility:[facility] Start: 05-11-2022 End: 05-11-2022 ambulatory MD Dee Buchanan Work Phone: [facility] Work Phone: Start: 05-11-2022 End: 05-11-2022 Patient encounter procedure MD Dee Buchanan Work Phone: [facility] Start: 08-10-2021 End: 08-10-[address] ANAI BURGER Facility:[facility] Start: 07-17-2021 End: 07-18-[address] LORENE PLASENCIA Facility:[facility] Start: 12-08-2020 End: 12-08-[address] VERITO LAMB Facility:[facility] Start: 12-03-2020 End: 12-03-[address] VERITO LAMB Facility:[facility] Procedures Date Procedure Procedure Detail Performing Clinician Start: 04-17-2024 Urnls dip stick/tabl et rgnt non-auto w/o micrscp Anai Burger DO Work Phone: Start: 04-03-2024 ALL MISCELLANEOUS TEST Generic External [...] AM EST Routine [facility] [address] [place] [address] Anai Burger, DO [address], [place] [address] [facility] Start: 04-10-2024 End: 04-10-2024 [...] AM EST Routine [facility] [address] [facility] [place] [address] Anai Burger, DO [address] [place] [address] Arrived [facility] Comment on above: Arrived Start: 03-19-2024 End: 03-19-2024 Patient encounter procedure [facility] Comment on above: Arrived Start: 03-05-2024 End: 03-05-2024 Patient encounter procedure [facility] Comment on above: Arrived Start: 03-05-2024 End: 03-05-2024 Professional / ancillary services management 03/05/2024 9:00 AM EST Ancillary Procedure [facility] [address] [place] [address] [facility] Start: 03-01-2024 End: 03-01-2025 Alanine aminotransferase [Enzymatic activity/volume] in Serum or Plasma ALT Lab Routine induced hypertension, antepartum Expected: 03/01/2024 (Approximate), Expires: 03/01/2025 [facility] Comment on above: Expected: 03/01/2024 (Approximate), Expires: 03/01/2025 Start: 03-01-2024 End: 03-01-2025 Aspartate aminotransferase [Enzymatic activity/volume] in Serum or Plasma AST Lab Routine induced hypertension, antepartum Expected: 03/01/2024 (Approximate), Expires: 03/01/2025 [facility] Comment on above: Expected: 03/01/2024 (Approximate), [...] Expected: 03/01/2024 (Approximate), Expires: 03/01/2025 [facility] Work Phone: Comment on above: Expected: 03/01/2024 (Approximate), Expires: 03/01/2025 Start: 03-01-2024 End: 03-01-2025 Lactate dehydrogenase [Enzymatic activity/volume] in Serum or Plasma by Lactate to pyruvate reaction Lactate dehydrogenase Lab Routine induced hypertension, antepartum Expected: 03/01/2024, Expires: 03/01/2025 [facility] Comment on above: Expected: 03/01/2024 , Expires: 03/01/2025 Start: 03-01-2024 End: 03-01-2025 Protein, urine, 24 hour Protein, urine, 24 hour Lab Routine induced hypertension, antepartum Expected: 03/01/2024 (Approximate), Expires: 03/01/2025 [facility] Comment on above: Expected: 03/01/2024 (Approximate), Expires: 03/01/2025 Start: 03-01-2024 End: 03-01-2025 Pt and ptt Pt and ptt Lab Routine induced hypertension, antepartum Expected: 03/01/2024, Expires: 03/01/2025 [facility] Comment on above: Expected: 03/01/2024 , Expires: 03/01/2025 Start: 03-01-2024 End: 03-01-2025 Urate [Mass/volume] in Serum or Plasma Uric acid Lab Routine induced hypertension, antepartum Expected: 03/01/2024 (Approximate), Expires: 03/01/2025 [facility] Comment on above: Expected: 03/01/2024 (Approximate), Expires: 03/01/2025 Start: 03-01-2024 End: 03-01-2025 Urea nitrogen [Mass/volume] in Serum or Plasma BUN Lab Routine induced hypertension, antepartum Expected: 03/01/2024, Expires: 03/01/2025 [facility] Comment on above: Expected: 03/01/2024 , Expires: 03/01/2025 Start: 03-01-2024 End: 03-01-2025 US biophysical profile w non stress test US biophysical profile w non stress test Imaging Routine Hypertension affecting in third trimester Lightheadedness Dizziness Expected: 03/01/2024 (Approximate), Expires: 03/01/2025 [facility] Comment on above: Expected: 03/01/2024 (Approximate), Expires: [...] of anatomy Expected: 01/20/2024 (Approximate), Expires: 12/19/2024 [facility] Work Phone: Comment on above: Expected: 01/20/2024 (Approximate), Expires: 12/19/2024 Start: 01-17-2024 End: 01-16-2025 CBC panel - Blood by Automated count CBC Lab Routine Diabetes mellitus screening Expected: 01/17/2024 (Approximate), Expires: 01/16/2025 [facility] [employer] Work Phone: Comment on above: Expected: 01/17/2024 (Approximate), Expires: 01/16/2025 Start: 01-17-2024 End: 01-16-2025 Measurement of glucose 1 hour after glucose challenge for glucose tolerance test Glucose tolerance, 1 hour Lab Routine Diabetes mellitus screening Expected: 01/17/2024 (Approximate), Expires: 01/16/2025 [facility] [employer] Comment on above: Expected: 01/17/2024 (Approximate), Expires: 01/16/2025 Start: 01-17-2024 End: 01-17-2024 Patient encounter procedure [facility] Comment on above: Arrived Start: 01-17-2024 End: 01-17-2024 Professional / ancillary services management 01/17/2024 9:30 AM EDT Ancillary Procedure [facility] [address] [place] [address] [place] [id number] [facility] Start: 12-20-2023 End: 12-20-2023 Patient encounter procedure [facility] Comment on above: Arrived Start: 12-14-2023 End: 12-14-2023 Professional / ancillary services management 12/14/2023 9:00 AM EDT Ancillary Procedure [facility] [address] [place] [id number] [facility] Start: 11-22-2023 End: 05-21-2024 Alpha fetoprotein, maternal Alpha fetoprotein, maternal Lab Routine Second trimester Expected: 11/22/2023 (Approximate), Expires: 05/21/2024 [facility] Comment on above: Expected: 11/22/2023 (Approximate), Expires: 05/21/2024 Start: 11-22-2023 End: 11-21-2024 US for US OB ANATOMY SINGLE W US OB CERVICAL LENGTH Imaging Routine Screening, , for anatomic survey Expected: 11/22/2023 (Approximate), Expires: 11/21/2024 [facility] Comment on above: Expected: 11/22/2023 (Approximate), Expires: 11/21/2024 Start: 11-20-2023 Influenza vaccination Influenza Vacc ine (#1) [facility] CHLAMYDIA TRACHOMATI S (GENITO/STI) CHLAMYDIA TRACHOMATIS (GENITO/STI) Lab Routine STD exposure Ordered: 11/22/2023 [facility] Comment on above: Ordered: 11/22/2023 Cytology Cervical or vaginal smear or scraping study Pap Smear Pathology and Cytology Routine Well woman exam with routine gynecological exam Ordered: 11/22/2023 [facility] Comment on above: Ordered: 11/22/2023 Neisseria gonorrhoea e DNA [Presence] in Unspecified specimen by SANTANA with probe detection Neisseria gonorrhea DNA probe, direct Lab Routine STD exposure Ordered: 11/22/2023 [facility] Comment on above: Ordered: 11/22/2023 SURESWAB(R) ADVANCED VAGINITIS PLUS, TMA SURESWAB(R) ADVANCED VAGINITIS PLUS, TMA Pathology and Cytology Routine Vaginal discharge Ordered: 11/22/2023 [facility] Work Phone: Comment on above: Ordered: 11/22/2023 Immunizations Immunization Date Immunization Notes Care Provider [facility] 12-09-2019 diphtheria, tetanus toxoids and pertussis vaccine Lorene Hemmer PA Work Phone: [facility] 12-09-2019 measles, mumps and rubella virus vaccine Lorene Hemmer PA Work Phone: [facility] 05-30-2000 diphtheria, tetanus toxoids and acellular pertussis vaccine, unspecified formulation Lorene Hemmer PA Work Phone: [facility] Work Phone: 05-30-2000 measles, mumps and rubella virus vaccine Lorene Hemmer PA Work Phone: [facility] 05-30-2000 poliovirus vaccine, inactivated Lorene Hemmer PA Work Phone: [facility] 03-30-2000 influenza, seasonal, injectable Lorene Hemstan PA Work Phone: [facility] 03-30-2000 influenza virus vaccine, unspecified formulation Lorene Hemmer PA Work Phone: [facility] 09-12-1998 haemophilus influenz ae type b vaccine, conjugate unspecified formulation Lorene Hemmer PA Work Phone: [facility] 11-28-1996 diphtheria, tetanus toxoids and acellular pertussis vaccine, unspecified formulation Lorene Hemmer PA Work Phone: [facility] 11-28-1996 haemophilus influenz ae type b vaccine, conjugate unspecified formulation Lorene Hemmer PA Work Phone: [facility] 11-28-1996 measles, mumps and rubella virus vaccine Lorene Hemmer PA Work Phone: [facility] 10-27-1996 trivalent poliovirus vaccine, live, oral Lorene Hemstan PA Work Phone: [facility] 01-31-1996 DTP-Haemophilus influenzae type b conjugate vaccine Lorene Hemmer PA Work Phone: [facility] 01-31-1996 hepatitis B vaccine, pediatric or pediatric/adolescent dosage Lorene Hemstan PA Work Phone: [facility] 01-31-1996 trivalent poliovirus vaccine, live, oral Lorene Welchmer PA Work Phone: [facility] 1995 DTP-Haemophilus influenzae type b conjugate vaccine Lorene Hemmer PA Work Phone: [facility] 1995 trivalent poliovirus vaccine, live, oral Lorene Hemmer PA Work Phone: [facility] 1995 DTP-Haemophilus influenzae type b conjugate vaccine Lorene Hemmer PA Work Phone: [facility] 1995 hepatitis B vaccine, pediatric or pediatric/adolescent dosage Lorene Hemmer PA Work Phone: [facility] 1995 haemophilus influenz ae type b vaccine, conjugate unspecified formulation Lorene Hemmer PA Work Phone: [facility] 1995 hepatitis B vaccine, pediatric or pediatric/adolescent dosage Lorene Hemmer PA Work Phone: [facility] Payers Date Payer Category Payer [facility] Care O (unspecified) [id number] 2023 Private Health Insurance [id number] 2022 Private Health Insurance [id number] 2022 Self-pay 2022 Unknown [id number] 1995 Unknown [id number] 2.16.84 [id number] 1995 Unknown [id number] 2.16.84 0.1.372533.3.579.2.593 1995 Unknown [id number] 2.16.84 0.1.156972.3.579.2.593 1995 Unknown [id number] 2.16.84 0.1.096101.3.579.2.593 1995 Unknown [id number] 2.16.840.1.676241.3.579.2.1258 1995 Unknown [id number] 2.16.840.1.311838.3.579.2.1258 1995 Unknown [id number] 2.16.840.1.119968.3.579.2.1258 1995 Unknown [id number] 2.16.840.1.395027.3.579.2.1258 1995 Unknown [id number] 2.16.840.1.232618.3.579.2.1258 1995 Unknown [id number] 2.16.840.1.380050.3.579.2.1258 1995 Unknown [id number] 2.16.840.1.375531.3.579.2.1258 1995 Unknown [id number] 2.16.840.1.743363.3.579.2.1258 1995 Unknown [id number] 2.16.840.1.534196.3.579.2.1258 1995 Unknown [id number] 2.16.840.1.192661.3.579.2.1258 1995 Unknown [id number] 2.16.840.1.874200.3.579.2.1258 1995 Unknown [id number] 2.16.840.1.393033.3.579.2.1258 1995 Unknown [id number] 2.16.840.1.090325.3.579.2.1258 1995 Unknown [id number] 2.16.840.1.145501.3.579.2.1258 1995 Unknown [id number] 2.16.840.1.988156.3.579.2.1258 1995 Unknown [id number] 2.16.840.1.771566.3.579.2.1258 1995 Unknown [id number] 2.16.840.1.439049.3.579.2.1258 1959 Unknown [id number] 1959 Unknown [id number] 1959 Unknown [id number] Unknown [id number] 2.16.840.1.592653.3.579.2.531 Social History Date Type Detail Facility Tobacco smoking stat us NHIS Unknown if ever smoked [facility] Work Phone: Start: 1995 Sex Assigned At Female [facility] Start: 09-08-2023 End: 11-23-2023 Sex Assigned At [...] to any clubs or organizations such as christian groups, unions, fraternal or athletic groups, or [...] Healthcare Start: 10-18-2022 Sexual orientation Heterosexual (finding) [facility] Start: 10-24-2023 End: 11-22-2023 Alcoholic beverage intake Current drinker of alcohol (finding) [facility] Clinical Notes 05-11-2022 to 04-17-2024 ABEL Carroll - 04/17/2024 10:50 AM ABEL Stinson - 04/10/2024 10:20 AM Graeme Duran LPN - 04/03/2024 10:30 AM ABEL Stinson - 03/19/2024 10:10 AM ABEL Stinson - 03/05/2024 9:40 AM EST Note Date & Type Note Facility 04-17-2024 History of Presen t illness Narrative Reason [...] reviewed. Vitals: Estimated body mass index is 39.51 kg/m as calculated from the following: Height as of 24: 5' 2 . Weight as of this encounter: 216 lb. BP: 124/78 Patient's last menstrual period was 07/27/2023. ASSESSMENT & PLAN ICD-10-CM 1. Third trimester Z34.93 POCT urinalysis dipstick manually resulted 2. 37 weeks gestation of Z3A.37 Return OB: Patient presents today for a routine obstetrics appointment. Patient is currently 37w6d . Patient states she is doing well but has complaints of being tired due to current . Patient has verbalizes frequent movement. labor precautions was discussed/given and patient was instructed to perform kick counts three times a day. Orders Placed This Encounter Procedures POCT urinalysis dipstick manually resulted Follow Up: Patient is to return to office in 1 week for routine OB appointment. Documented by ABEL Carroll on behalf of: Anai Burger DO documented in this encounter [facility] 04-10-2024 History of Presen t illness Narrative [...] of: ABEL Carroll documented in this encounter [facility] 04-03-2024 History of Presen t illness Narrative [...] nursing note reviewed. Exam conducted with a visual merchandising specialist present. Vitals: Estimated body mass index is [...] Anai Burger DO documented in this encounter [facility] 03-19-2024 History of Presen t illness Narrative [...] of: ABEL Carroll documented in this encounter [facility] 03-05-2024 History of Presen t illness Narrative [...] of: ABEL Carroll documented in this encounter [facility] 03-01-2024 History of Presen t illness Narrative [...] of: ABEL Carroll documented in this encounter [facility] 02-20-2024 History of Presen t illness Narrative [...] nursing note reviewed. Exam conducted with a visual merchandising specialist present. Vitals: Estimated body mass index is [...] Anai Burger DO documented in this encounter [facility] 01-17-2024 History of Presen t illness Narrative [...] nursing note reviewed. Exam conducted with a visual merchandising specialist present. Vitals: Estimated body mass index is [...] of: ABEL Carroll documented in this encounter [facility] 12-20-2023 History of Presen t illness Narrative [...] of: ABEL Carroll documented in this encounter [facility] 11-25-2023 Telephone encount er Note Understood. [facility] 11-25-2023 Miscellaneous Notes Formattin g of this note might be different from the original. Understood. Nazia called stating her ob just wants her on Effexor instead of buspirone so that's what she'll be on documented in this encounter [facility] 11-25-2023 Telephone encount er Note Nazia called stating her ob just wants her on Effexor instead of buspirone so that's what she'll be on [facility] 11-23-2023 History of Presen t illness Narrative [...] Medication Follow Up. documented in this encounter [facility] 11-22-2023 History of Presen t illness Narrative [...] nursing note reviewed. Exam conducted with a visual merchandising specialist present. Vitals: Estimated body mass index is [...] Anai Burger DO documented in this encounter [facility] 05-11-2022 Evaluation note Encounter Date Diagnosis Assessment [...] Instructed patient to wear brace for activities. [employer] Other Evaluation noteNo assessment information available [facility] Work Phone: Evaluation note* Diagnosis Encounter for follow-up ultrasound of anatomy Second trimester state, incidental 20 weeks gestation of documented in this encounter [facility] HealthcareEvaluation note* Diagnosis Diabetes mellitus screening Screening for diabetes mellitus Second trimester state, incidental 24 weeks gestation of documented in this encounter [facility] HealthcareEvaluation note* Diagnosis Third trimester state, incidental Excessive growth affecting management of , antepartum, single or unspecified fetus documented in this encounter [facility] HealthcareEvaluation note* Diagnosis 31 weeks gestation of [...] HealthcareEvaluation note* Diagnosis Third trimester state, incidental 37 weeks gestation of documented in this encounter [facility] Narrative - Reported* Type Description Date Medical History learning disability Surgical History tymponostomy x7 [employer] Other Summary Purpose Family History No Family History Records FoundNo Family History Records FoundNo Family History Records Found Advance Directives No Advanced Directives Records FoundNo Advanced Directives Records FoundNo Advanced Directives Records Found Additional Source Comments INFORMATION SOURCE (unrecogn ized section and content) DATE CREATED AUTHOR 09/12/2021 [facility] DATE CREATED AUTHOR AUTHOR'S ORGANIZ ATION 05/21/2022 [facility] DATE CREATED AUTHOR AUTHOR'S ORGANIZ ATION 04/18/2024 [facility] [employer] Care Teams (unrecognized sec tion and content) Team Status: Inactive Member Role Status Dates Dee Buchanan MD Attending Provider Active Customer Retention Specialist Relationship Specialty Start Date End Date Verito Lamb MD [address] [place] [address] PCP - General Family Medicine 10/18/22 Customer Retention Specialist Relationship Specialty Start Date End Date Verito Lamb MD [address] [place] [address] PCP - General Family Medicine 10/18/22 Customer Retention Specialist Relationship Specialty Start Date End Date Verito Lamb MD [address] [place] [address] PCP - General Family Medicine 10/18/22 Customer Retention Specialist Relationship Specialty Start Date End Date Verito Lamb MD [address] [place] [address] PCP - General Family Medicine 10/18/22 Customer Retention Specialist Relationship Specialty Start Date End Date Verito Lamb MD [address] [place] [address] PCP - General Family Medicine 10/18/22 Customer Retention Specialist Relationship Specialty Start Date End Date Verito Lamb MD [address] [place] [address] PCP - General Family Medicine 10/18/22 Customer Retention Specialist Relationship Specialty Start Date End Date Verito Lamb MD [address] [place] [address] PCP - General Family Medicine 10/18/22 Customer Retention Specialist Relationship Specialty Start Date End Date Verito Lamb MD [address] [place] [address] PCP - General Family Medicine 10/18/22 Customer Retention Specialist Relationship Specialty Start Date End Date Verito Lamb MD [address] [facility] [address] [place] [address] PCP - [facility] Medicine 10/18/22 Customer Retention Specialist Relationship Specialty Start Date End Date Verito Lamb MD [address] [facility] [address] [place] [address] PCP - [facility] Medicine 10/18/22 Customer Retention Specialist Relationship Specialty Start Date End Date Verito Lamb MD [address] [facility] [address] [place] [address] PCP - [facility] Medicine 10/18/22 Customer Retention Specialist Relationship Specialty Start Date End Date Verito Lamb MD [address] [facility] [address] [place] [address] PCP - [facility] Medicine 10/18/22 Customer Retention Specialist Relationship Specialty Start Date End Date Verito Lamb MD [address] [facility] [address] [place] [address] PCP - [facility] Medicine 10/18/22 Customer Retention Specialist Relationship Specialty Start Date End Date Verito Lamb MD [address] [facility] [address] [place] [address] PCP - General Family Medicine 10/18/22 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 [facility] provides no warranty or guarantee of the accuracy or completeness of information in this document.
--- NOTE | 2024-04-21 15:03 | US_ITS ---
[address] [address] Patient Name: ELIZABETH MOLINA MRN: [id number] date: 1995 Sex: F Assigned Patient Location: [facility] Current Patient Location: Accession/Order Number: [id number] Exam Date: 04/21/2024 15:06 Report Date: 04/21/2024 17:47 At the request of: ANAI AMADO Procedure: US OB BPP w non-stress EXAM: US OB BPP w non-stress HISTORY: Hypertension affecting COMPARISON: None. TECHNIQUE: Limited OB ultrasound is performed for evaluation of biophysical profile multiple grayscale images are submitted for review. FINDINGS: Single live intrauterine is seen. heart rate is 132 beats per minute. PERNELL measures 11.1 cm. Biophysical profile: breathing movements: 2 Gross body movements: 2 tone: 2 Qualitative amniotic fluid volume: 2 Total biophysical profile score is 8 out of 8. Incidental note is made of possible nuchal cord. Clinical correlation and follow-up imaging is suggested. US/US OB BPP w non-stress IMPRESSION: Single live intrauterine . heart rate is 132 beats per minute. Total biophysical profile score is 8 out of 8. Incidental note is made of possible nuchal cord. Clinical correlation and follow-up imaging is suggested. This report was placed in the stat call folder for immediate notification of the referring clinician. Electronically authenticated by: TASHA DORANTES Date: 04/21/2024 17:47
[2024-04-21 15:49] VITALS: BP 143/92; PULSE 66
[2024-04-21 15:50] VITALS: BP 134/91; PULSE 68
== END 2024-04-21 16:20 | disposition home or self-care (01) ==
LOC: FBCO 14:45 → FBC 14:47
PROVIDERS: PCP Family Medicine; Visit Provider Obstetrics & Gynecology
DX: O16.3 Unspecified maternal hypertension, third trimester (principal)
CPT/HCPCS: 76818

== ENCOUNTER 2024-04-25 01:05 | Outpatient (OUT) | payer OTHER, SELFPAY ==
--- OUTSIDE RECORDS SUMMARY | 2024-04-25 01:08 | XMS_ITS | CCD ---
Author Organization [facility] Care Team Providers Care Sharepoint Engineer Name Role Phone JENNYFER, DR OSPINA Admitting [...] JENNYFERANAI Attending Unavailable JENNYFERANAI OLIVA Attending Unavailable HEMLROENE MANDEL Attending Unavailable AMANDA MARTINEZ Attending Unavailable AMANDA MARTINEZ Attending Unavailable JENNYFERANAI Attending Unavailable AMANDA MARTINEZ Attending Unavailable JUAN AMANDA Attending Unavailable AMANDA MARTINEZ Attending Unavailable JENNYFERANAI OLIVA Attending Unavailable Allergies Allergy Classification Reported Allergen(s) Allergy Type Date of Onset Reaction(s) Facility (1 source) Cephalexin Drug Allergy [facility] Repository (20 sources) ARIPiprazole Drug Allergy 3 [facility] Healthcare Work Phone: (20 sources) cariprazine Drug Allergy 3 [facility] Healthcare (20 sources) Cephalexin Drug Allergy 3 Unknown [facility] Healthcare (20 sources) Propofol Drug Allergy 3 Unknown [facility] Healthcare (20 sources) Flavoring Agent Allergy to substance 3 Unknown [facility] Healthcare (20 sources) Mosquito (Diagnostic) Drug Allergy 3 Unknown [facility] Healthcare (12 sources) Flavoring Agent (Non-Screening) Allergy to substance 3 Unknown [facility] Medications Current Medications Medication Drug [...] Active labetalol hydrochloride 100 mg oral tablet (20 sources) beta-Adrenergic Adina Start: 024 End: 025 [...] omeprazole 20 mg delayed release oral capsule (11 sources) Proton Pump Inhibitor Start: 04-03-2024 End: [...] Test Name Value Interpretation Reference Range Facility US OB BPP W NON-STRESS on 04-21-2024 [place] [address] Ultrasound Report Signed Patient: NAZIA RUIZ MR#: [id number] : 1995 Acct:[id number] Age/Sex: 28 / F ADM Date: 04/21/24 Loc: [facility] Attending Dr: Anai Burger D.O. Ordering Physician: Anai Burger D.O. Date of Service: 04/21/24 Procedure(s): US OB BPP w non-stress Accession Number(s): [id number] cc: VERITO LAMB ; Anai Burger D.O. [place] [id number] Patient Name: NAZIA RUIZ MRN: [id number] date: 1995 Sex: F Assigned Patient Location: [facility] Current Patient Location: Accession/Order Number: [id number] Exam Date: 04/21/2024 15:06 Report Date: 04/21/2024 17:47 At the request of: ANAI BURGER Procedure: US OB BPP w non-stress EXAM: US OB BPP w non-stress HISTORY: Hypertension affecting COMPARISON: None. TECHNIQUE: Limited OB ultrasound is performed for evaluation of biophysical profile multiple grayscale images are submitted for review. FINDINGS: Single live intrauterine is seen. heart rate is 132 beats per minute. PERNELL measures 11.1 cm. Biophysical profile: breathing movements: 2 Gross body movements: 2 tone: 2 Qualitative amniotic fluid volume: 2 Total biophysical profile score is 8 out of 8. Incidental note is made of possible nuchal cord. Clinical correlation and follow-up imaging is suggested. US/US OB BPP w non-stress IMPRESSION: Single live intrauterine . heart rate is 132 beats per minute. Total biophysical profile score is 8 out of 8. Incidental note is made of possible nuchal cord. Clinical correlation and follow-up imaging is suggested. This report was placed in the stat call folder for immediate notification of the referring clinician. Electronically authenticated by: PRISCILLA MONTEJO Date: 04/21/2024 17:47 Dictated By: Priscilla Montejo M.D. Signed By: 04/21/24 175 DD/ 1742 TD/TT: Box Toe Maker: [facility] Radiology, Radiologist, - 04/21/2024 [place] [address] Ultrasound Report Signed Patient: NAZIA RUIZ MR#: [id number] : 1995 Acct:[id number] Age/Sex: 28 / F ADM Date: 04/21/24 Loc: [facility] Attending Dr: Anai Burger D.O. Ordering Physician: Anai Burger D.O. Date of Service: 04/21/24 Procedure(s): US OB BPP w non-stress Accession Number(s): [id number] cc: VERITO LAMB ; Anai Burger D.O. The [address] [address] Patient Name: NAZIA RUIZ MRN: [facility]:[id number] date: 1995 Sex: F Assigned Patient Location: [facility] Current Patient Location: Accession/Order Number: [id number] Exam Date: 04/21/2024 15:06 Report Date: 04/21/2024 17:47 At the request of: ANAI BURGER Procedure: US OB BPP w non-stress EXAM: US OB BPP w non-stress HISTORY: Hypertension affecting COMPARISON: None. TECHNIQUE: Limited OB ultrasound is performed for evaluation of biophysical profile multiple grayscale images are submitted for review. FINDINGS: Single live intrauterine is seen. heart rate is 132 beats per minute. PERNELL measures 11.1 cm. Biophysical profile: breathing movements: 2 Gross body movements: 2 tone: 2 Qualitative amniotic fluid volume: 2 Total biophysical profile score is 8 out of 8. Incidental note is made of possible nuchal cord. Clinical correlation and follow-up imaging is suggested. US/US OB BPP w non-stress IMPRESSION: Single live intrauterine . heart rate is 132 beats per minute. Total biophysical profile score is 8 out of 8. Incidental note is made of possible nuchal cord. Clinical correlation and follow-up imaging is suggested. This report was placed in the stat call folder for immediate notification of the referring clinician. Electronically authenticated by: PRISCILLA MONTEJO Date: 04/21/2024 17:47 Dictated By: Priscilla Montejo M.D. Signed By: 04/21/241749 DD/ 46 TD/TT: Box Toe Maker: [facility] Radiology Study observation (narrative) [facility] US OB BPP W NON-STRESS Ordered By: Radiologist Radiology on 04-21-2024 [facility] [employer] Work Phone: Urinalysis macro (dipstick) panel (U)on 04-17-2024 Bilirubin, UA Negative Negative - 4(70) +++ mg/dL [facility] Blood, UA Negative Negative - 50 Neno/mcL [facility] Clarity, UA Clear [facility] [employer] re Color, UA Yellow [facility] [employer] Glucose, UA Negative Negative - 1999(110) ++++ mg/dL [facility] Interpretation and review of laboratory results Abnormal [facility] [employer] re Ketones, UA Negative Negative - 160(16) ++++ mg/dL [facility] Leukocytes, UA Trace Negative - 500+++ Virgie/mcL [facility] Nitrite, UA Negative Negative - Positive [facility] pH, UA 7 5 - 9 [facility] [employer] Protein, UA Positive Negative - 1999(20) ++++ mg/dL [facility] Comment on above: 100 Spec Grav, UA 1.02 1 - 1.03 [facility] Urobilinogen, UA 0.2 0.2 - 12 mg/dL [facility] ALL MISCELLANEOUS TESTon MISCELLANEOUS TEST COMMENT . [facility] Comment on above: Test Ordered: [id number] Strep Gp B Culture+Rflx Strep Gp B Culture+Rflx Negative CB Reference Range: Negative Centers for Disease Control and Prevention (CDC) and [place] Congress of Obstetricians and Gynecologists (ACOG) guidelines [...] resistance to clindamycin is noted. Performed at: [facility] [address] [id number] Canal Driver: Nadir Schaffer PhD, Phone: [phone] GROUP B STREP [id number] Group B Streptococcus Colonization Detection Culture With Re [facility] Healthcar e Urinalysis macro (dipstick) panel (U)on 03-19-2024 Bilirubin, UA Positive Negative - 4(70) +++ mg/dL [facility] Comment on above: small Blood, UA Positive Negative - 50 Neno/mcL [facility] Comment on above: trace Clarity, UA [facility] re Color, UA Marilyn [facility] [employer] Glucose, UA Negative Negative - 1999(110) ++++ mg/dL [facility] Interpretation and review of laboratory results Abnormal [facility] re Ketones, UA Negative Negative - 160(16) ++++ mg/dL [facility] Leukocytes, UA Trace Negative - 500+++ Virgie/mcL [facility] Nitrite, UA Negative Negative - Positive [facility] pH, UA 6 5 - 9 [facility] Protein, UA Positive Negative - 1999(20) ++++ mg/dL [facility] Comment on above: 30 Spec Grav, UA 1.03 1 - 1.03 [facility] Urobilinogen, UA 0.2 0.2 - 12 mg/dL [facility] Health[facility] e Urinalysis macro (dipstick) panel (U)on 03-05-2024 Bilirubin, UA Negative Negative - 4(70) +++ mg/dL [facility] Blood, UA Negative Negative - 50 Neno/mcL [facility] Clarity, UA Clear [facility] re Color, UA Yellow [facility] Glucose, UA Negative Negative - 1999(110) ++++ mg/dL [facility] Interpretation and review of laboratory results Abnormal [facility] re Ketones, UA Negative Negative - 160(16) ++++ mg/dL [facility] Leukocytes, UA Positive Negative - 500+++ Virgie/mcL [facility] Comment on above: small Nitrite, UA Negative Negative - Positive [facility] pH, UA 6 5 - 9 [facility] Protein, UA Negative Negative - 1999(20) ++++ mg/dL [facility] Spec Grav, UA 1.015 1 - 1.03 [facility] Urobilinogen, UA 0.2 0.2 - 12 mg/dL [facility] Health[facility] e CCF APTTon 03-02-2024 aPTT Coag (Bld) [Time] 23.9 s [facility] No Panel Informationon 03-02 [facility] e SRMCOH PROTHROMBIN TIME INR W/O COUMon 03-02-2024 PT Coag (PPP) [Time] 9.9 s [facility] TB INR 0.93 [facility] [employer] Comment on above: DESIRED INR: 2.0-3.0 CONDITIONS NOT LISTED BELOW 2.5-3.5 FOR PROSTHETIC HEART VALVE REPLACEMENT 2.5-3.5 RECURRENT THROMBOSIS Urinalysis macro (dipstick) panel (U)on 03-01-2024 Bilirubin, UA Negative Negative - 4(70) +++ mg/dL [facility] Blood, UA Negative Negative - 50 Neno/mcL [facility] Clarity, UA Clear [facility] Health[facility] re Color, UA Yellow [facility] Glucose, UA Negative Negative - 1999(110) ++++ mg/dL [facility] Interpretation and review of laboratory results Abnormal [facility] Health[employer] re Ketones, UA Negative Negative - 160(16) ++++ mg/dL [facility] Leukocytes, UA Positive Negative - 500+++ Virgie/mcL [facility] Comment on above: small Nitrite, UA Negative Negative - Positive [facility] pH, UA 7 5 - 9 [facility] Healthcar e Protein, UA Trace Negative - 1999(20) ++++ mg/dL [facility] Spec Grav, UA 1.02 1 - 1.03 [facility] Urobilinogen, UA 0.2 0.2 - 12 mg/dL [facility] GLUCOSE 1 HOURon 01-25-2024 Glucose [Mass/Vol] 131 mg/dL High NINF - 13 0 mg/dL [facility] Interpretation and review of laboratory results Abnormal [facility] Healthca re [facility] Healthcar e Urinalysis macro (dipstick) panel (U)on 01-17-2024 Bilirubin, UA Negative Negative - 4(70) +++ mg/dL [facility] Blood, UA Negative Negative - 50 Neno/mcL [facility] Healthcare Clarity, UA Clear [facility] Healthca re Color, UA Yellow [facility] Healthcar e Glucose, UA Negative Negative - 1999(110) ++++ mg/dL [facility] Interpretation and review of laboratory results Abnormal [facility] Healthca re Ketones, UA Negative Negative - 160(16) ++++ mg/dL [facility] Leukocytes, UA Trace Negative - 500+++ Virgie/mcL [facility] Nitrite, UA Negative Negative - Positive [facility] pH, UA 6 5 - 9 [facility] Healthcar e Protein, UA Negative Negative - 1999(20) ++++ mg/dL [facility] Spec Grav, UA 1.02 1 - 1.03 [facility] Urobilinogen, UA 1.0 0.2 - 12 mg/dL [facility] Healthcare [facility] Healthcar e Urinalysis macro (dipstick) panel (U)on 12-20-2023 Bilirubin, UA Negative Negative - 4(70) +++ mg/dL [facility] Blood, UA Negative Negative - 50 Neno/mcL [facility] Healthcare Clarity, UA Clear [facility] re Color, UA Yellow [facility] Glucose, UA Negative Negative - 1999(110) ++++ mg/dL [facility] Interpretation and review of laboratory results Abnormal [facility] re Ketones, UA Negative Negative - 160(16) ++++ mg/dL [facility] Leukocytes, UA Trace Negative - 500+++ Virgie/mcL [facility] Nitrite, UA Negative Negative - Positive [facility] pH, UA 6.5 5 - 9 [facility] Protein, UA Negative Negative - 1999(20) ++++ mg/dL [facility] Spec Grav, UA 1.025 1 - 1.03 [facility] Urobilinogen, UA 0.2 0.2 - 12 mg/dL [facility] Health[facility] e AFP, SERUM, OPEN SPINA BIFID Aon 12-11-2023 AFP MOM 0.79 . [facility] AFP VALUE 34.7 ng/mL . [facility] COMMENT: Comment . [facility] Comment on above: Treva Gong , Ph.D., [facility] Director References: Available Upon Request. Multiples Of Median Cutoffs For AFP Elevations Banuelos 2.5 Black 2.8 IDD 2.0 Twins 4.5 Abbreviation Definitions IDD - Insulin Dep Diabetes OSBR - Open Spina Bifida Risk For further inquiries contact [employer] at [phone]. This test was developed and its performance characteristics determined by [employer]. It has not been cleared or approved by the Food and Drug Administration. Performed at: [facility] [place], [place] [id number] Canal Driver: Maira Jones [facility], Phone: [phone] GEST. AGE ON COLLECTION DATE 19.3 . weeks [facility] GESTAT. AGE BASED ON LMP . [facility] Comment on above: Recalculations are n ot recommended when gestational dating by LMP and ultrasound are within 10 days. INSULIN DEP DIABETES No . [facility] INTERPRETATION Comment . [facility]alt [facility] Comment on above: Interpretation: [...] Customer Services to discuss available options. The [place] [employer]stetricians and Gynec[employer] recommends amniocentesis be offered to women age 35 and older. [age] [facility] MULTIPLE GESTATION No . [facility] [place] [address] [place] [id number] . [facility] [employer]care RACE . [facility] [employer] RESULTS Report . [facility] [employer] TEST RESULTS: Negative . [facility] Health care WEIGHT 188 . lbs [facility] Healthcar e N N LMP [id number] 6 16 N 1 Y 188 N N N N N White/ [facility] [employer] IGP,APTIMA HPV,AGE GDLNon AGE GDLN ACOG TESTING Note . [facility] Comment on above: TESTS RESULT FLAG UN ITS REF RANGE LAB Clinician Provided Cytology Information Source.............Cervix No. of containers..01 ThinPrep Vial Age Algo ACOG Madonna... - 01 FLAG LEGEND: L-Low Normal,H-High Normal,LL-Alert Low,HH-Alert High <-Panic Low,>-Panic High,A-Abnormal,AA-Critical Abnormal Performed at: 01 =G [facility] [address] [address] Tierra Morales MD, IGP, RFX APTIMA HPV ASCU Note . [facility] Comment on above: TESTS RESULT FLAG UN ITS REF RANGE LAB DIAGNOSIS: 02 NEGATIVE FOR INTRAEPITHELIAL LESION OR MALIGNANCY. Specimen adequacy: 02 Satisfactory for evaluation. No endocervical component is identified. Performed by: 02 Francesca Blanc, Solidworks Drafter ([facility]) . 02 Note: Note [...] <-Panic Low,>-Panic High,A-Abnormal,AA-Critical Abnormal Performed at: [address] [place] [address] Tierra Morales MD, Performed at: =G - [facility] [address] [id number] Canal Driver: Tierra Morales MD, Phone: [phone] Performed at: [facility] [address] [id number] Canal Driver: Tierra Morales MD, Phone: [phone] SPATULA-ALONE CERVIX [facility] Urinalysis macro (dipstick) panel (U)on 11-22-2023 Bilirubin, UA Negative Negative - 4(70) +++ mg/dL [facility] Blood, UA Negative Negative - 50 Neno/mcL [facility] Clarity, UA Clear [facility] re Color, UA Yellow [facility] Glucose, UA Negative Negative - 1999(110) ++++ mg/dL [facility] Interpretation and review of laboratory results Normal [facility] Healthca re Ketones, UA Negative Negative - 160(16) ++++ mg/dL [facility] Leukocytes, UA Negative Negative - 500+++ Virgie/mcL [facility] Nitrite, UA Negative Negative - Positive [facility] pH, UA 6.5 5 - 9 [facility] Healthcar e Protein, UA Negative Negative - 1999(20) ++++ mg/dL [facility] Spec Grav, UA 1.025 1 - 1.03 [facility] Urobilinogen, UA 1.0 0.2 - 12 mg/dL [facility] XR wrist LT min 3V*on 2022 XR wrist LT min 3V* [facility] [place] [address] [place] [address] XRay Report Signed Patient: Nazia Harper MR#: [id number] : 1995 Acct:[id number] Age/Sex: 26 / F ADM Date: 05/11/22 Loc: [facility] Room: Type: [facility] Attending Dr: Dee Buchanan MD Copies [...] Travis Jr., D.OJuanis05/11/2022 12:18 PM Dictation Location: [facility]--08 Transcribed By: PWS 05/11/22 1218 Dictated By: Tan Travis Jr, DO 05/11/22 1217 Signed By: 05/11/22 1218 Normal [facility] XR wrist LT min 3V* [facility] [employer] Other XR wrist LT min 3V* [facility] Karisma Kidz Other XR wrist LT min 3V* [address] [place] [address] Karisma Kidz Other XR wrist LT min 3V* [place] [address] [employer] Other XR wrist LT min 3V* XRay Report [employer] Other XR wrist LT min 3V* Signed [employer] Other XR wrist LT min 3V* Patient: Nazia Harper MR#: [id number] [employer] Other XR wrist LT min 3V* 67 [employer] Other XR wrist LT min 3V* : 1995 Acct:[id number] [employer] Other XR wrist LT min 3V* Age/Sex: 26 / F ADM Date: 05/11/22 [employer] Other XR wrist LT min 3V* Loc: [facility]: [facility] [employer] Other XR wrist LT min 3V* Attending Dr: Dee Buchanan MD [employer] Other XR wrist LT min 3V* Copies to: Dee Buchanan MD [employer] Other XR wrist LT min 3V* Ordering Provider: Dee Buchanan MD [employer] Other XR wrist LT min 3V* Date of Service: 05/11/22 [employer] Other XR wrist LT min 3V* XR/XR wrist LT min 3V*: PAIN [employer] Other XR wrist LT min 3V* LEFT WRIST - 4 views [employer] Other XR wrist LT min 3V* CLINICAL HISTORY: Ganglion cyst posterior aspect at the level of the carpals. [employer] Other XR wrist LT min 3V* COMPARISON: None [employer] Other XR wrist LT min 3V* FINDINGS: [employer]isma Kid[employer] Other XR wrist LT min 3V* No focal soft tissue abnormality is noted. No acute bony process is seen. Carpal bones appear [employer]isma Kid[employer] Other XR wrist LT min 3V* unremarkable. [employer] Other XR wrist LT min 3V* XR/XR wrist LT min 3V* [employer] Other XR wrist LT min 3V* IMPRESSION: Karisma Kid[employer] Other XR wrist LT min 3V* NO ACUTE BONY PROCESS. [employer] Other XR wrist LT min 3V* Impression dictated by: Tan Travis Jr., DJuanisOJuanis05/11/2022 12:18 PM [employer] Other XR wrist LT min 3V* Dictation Location: [place] [address] [employer] Other XR wrist LT min 3V* Transcribed By: JOSE ALEJANDRO 05/11/22 [facility] [employer] Other XR wrist LT min 3V* Dictated By: Tan Travis Jr, DO 05/11/22 [facility] [employer] Other XR wrist LT min 3V* Signed By: Karisma Kidz Other XR wrist LT min 3V* 05/11/22 [facility] [employer]isma Kid[employer] Other PAP ACOG PANEL 2: 21 to 29on 05-28-2022 . . Normal [facility] Comment on above: Result Comment: Perf ormed at: BA Performed By: #### [id number] #### [facility] [address] [place] [address] Dr. Alek Fu Age Gdln ACOG Testing - [facility] Comment on above: Performed By: #### [id number] #### [facility] [address] [place] [address] Dr. Alek Fu DIAGNOSIS: Comment [facility] Comment on above: Result Comment: NEGA TIVE FOR INTRAEPITHELIAL LESION OR MALIGNANCY. Performed at: BA Performed By: #### 4 [id number] #### [facility] [address] [place] [address] Dr. Alek Fu Methodology: Comment [facility] Comment on above: Result Comment: This liquid based ThinPrep(R) pap test was screened with the use of an image guided system. Performed at: WB Performed By: #### 4 [id number] #### [facility] [address] [place] [address] Dr. Alek Fu Note: Comment [facility] [...] Performed at: WB Performed By: #### [id number] #### [facility] [address] [place] [address] Dr. Alek Fu Performed by: Comment Normal [facility] Comment on above: Result Comment: Elen Carrillo Solidworks Drafter (ASCP) Performed at: BA Performed By: #### [id number] #### [facility] [address] [place] [address] Dr. Alek Fu Reflex Criteria: Comment [facility] Comment on above: Result Comment: The HPV DNA reflex criteria were not met with this specimen result therefore, no HPV testing was performed. . Performed at: BA Performed By: #### [id number] #### [facility] [address] [place] [address] Dr. Alek Fu Specimen adequacy: Comment Normal [facility] Comment on above: Result Comment: Sati sfactory for evaluation. Endocervical and/or squamous metaplastic cells (endocervical component) are present. Performed at: Performed By: #### 4 [id number] #### [facility] [address] [place] [address] Dr. Alek Fu XR KNEE SABRINA 4V [...] by: ZURI PHOENIX Date: 2021-07-17 17:09 Normal [facility] CBC AUTO DIFFon 12-08-2020 BASO # 0.0 103/ul Normal 0.0-0.1 [facility] Comment on above: Performed By: #### C BC #### [facility] [address] [place] [address] Dr. Alek Fu Basophils/100 WBC (Bld) 0.2 % Normal 0.2-2.0 [facility] Comment on above: Performed By: #### C BC #### [facility] [address] [place] [address] Dr. Alek Fu EO # 0.0 103/ul Normal 0.0-0.7 [facility] Comment on above: Performed By: #### C BC #### [facility] [address] [place] [address] Dr. Alek Fu Eosinophils/100 WBC (Bld) 0.6 % Critically low 0.9-7.0 [facility] Comment on above: Performed By: #### C BC #### [facility] [address] [place] [address] Dr. Alek Fu Erythrocyte distribution width (RBC) [Ratio] 12.4 % Normal 11.0-15.0 [facility] Comment on above: Performed By: #### C BC #### [facility] [address] [place] [address] Dr. Alek Fu Hematocrit (Bld) [Volume fraction] 44.3 % Normal 36.0-48.0 [facility] Comment on above: Performed By: #### C BC #### [facility] [address] [place] [address] Dr. Alek Fu Hemoglobin (Bld) [Mass/Vol] 15.4 g/dL Normal 12.0-16.0 [facility] Comment on above: Performed By: #### C BC #### [facility] [address] [place] [address] Dr. Alek Fu IG # 0.04 10e3/ul Critically high 0.00-0.03 [facility] Comment on above: Performed By: #### C BC #### [facility] [address] [place] [address] Dr. Alek Fu IG % 0.6 % Critically high 0.0-0.5 [facility] Comment on above: Performed By: #### C BC #### [facility] [address] [place] [address] Dr. Alek Fu LYMPH # 3.2 103/ul Normal 1.2-3.8 [facility] Comment on above: Performed By: #### C BC #### [facility] [address] [place] [address] Dr. Alek Fu Lymphocytes/100 WBC (Bld) 50.2 % Normal 20.5-60.0 [facility] Comment on above: Performed By: #### C BC #### [facility] [address] [place] [address] Dr. Alek Fu MANUAL DIFF REQ NO Normal [facility] Comment on above: Performed By: #### C BC #### [facility] [address] [place] [address] Dr. Alek Fu MCH (RBC) [Entitic mass] 28.7 pg Normal 26.7-34.0 [facility] Comment on above: Performed By: #### C BC #### [facility] [address] [place] [address] Dr. Alek Fu MCHC (RBC) [Mass/Vol] 34.8 g/dL Normal 29.9-35.2 [facility] Comment on above: Performed By: #### C BC #### [facility] [address] [place] [address] Dr. Alek Fu MCV (RBC) [Entitic vol] 82.5 fL Normal 81.0-99.0 [facility] Comment on above: Performed By: #### C BC #### [facility] [address] [place] [address] Dr. Alek Fu MONO # 0.6 103/ul Normal 0.3-0.8 [facility] Comment on above: Performed By: #### C BC #### [facility] [address] [place] [address] Dr. Alek Fu Monocytes/100 WBC (Bld) 10.0 % Normal 1.7-12.0 [facility] Comment on above: Performed By: #### C BC #### [facility] [address] [place] [address] Dr. Alek Fu NEUT # 2.4 103/ul Normal 1.4-6.5 [facility] Comment on above: Performed By: #### C BC #### [facility] [address] [place] [address] Dr. Alek Fu Neutrophils/100 WBC (Bld) 38.4 % Critically low 43.0-75.0 [facility] Comment on above: Performed By: #### C BC #### [facility] [address] [place] [address] Dr. Alek Fu Platelet mean volume (Bld) [Entitic vol] 9.9 fL Normal 9.5-13.5 [facility] Comment on above: Performed By: #### C BC #### [facility] [address] [place] [address] Dr. Alek uF PLT 206 103/ul Normal 150-450 [facility] Comment on above: Performed By: #### C BC #### [facility] [address] [place] [address] Dr. Alek Fu RBC 5.37 106/ul Normal 4.20-5.40 [facility] Comment on above: Performed By: #### C BC #### [facility] [address] [place] [address] Dr. Alek Fu WBC 6.3 103/ul Normal 4.0-11.0 [facility] Comment on above: Performed By: #### C BC #### [facility] [address] [place] [address] Dr. Alek Fu ER URINE PROFILEon 1 Bilirubin Ql (U) Negative Normal NEGATIVE [facility] Comment on above: Performed By: #### E RUR #### [facility] [address] [place] [address] Dr. Alek Fu Clarity (U) CLEAR Normal CLEAR [facility] Comment on above: Performed By: #### E RUR #### [facility] [address] [place] [address] Dr. Alek Fu Color (U) YELLOW Normal YELLOW [facility] Comment on above: Performed By: #### E RUR #### [facility] [address] [place] [address] Dr. Alek HAWKINSNika A micrscopic examination will be performed if indicated. Normal [facility] Comment on above: Performed By: #### E RUR #### [facility] [address] [place] [address] Dr. Alek Fu Glucose Ql (U) Negative Normal NEGATIVE [facility] Comment on above: Performed By: #### E RUR #### [facility] [address] [place] [address] Dr. Alek Fu Hemoglobin Ql (U) TRACE-INTACT Abnormal NEGATIVE [facility] Comment on above: Performed By: #### E RUR #### [facility] [address] [place] [address] Dr. Alek Fu Ketones Ql (U) TRACE Abnormal NEGATIVE [facility] Comment on above: Performed By: #### E RUR #### [facility] [address] [place] [address] Dr. Alek Fu LEUKOCYTES Negative Normal NEGATIVE [facility] Comment on above: Performed By: #### E RUR #### [facility] [address] [place] [address] Dr. Alek Fu Nitrite Ql (U) Negative Normal NEGATIVE [facility] Comment on above: Performed By: #### E RUR #### [facility] [address] [place] [address] Dr. Alek Fu pH (U) 6.0 [pH] Normal 5-9 [facility] Comment on above: Performed By: #### E RUR #### [facility] [address] [place] [address] Dr. Alek Fu SPEC GRAVITY 1.015 Normal 1.005-<=1.025 [facility] Comment on above: Performed By: #### E RUR #### [facility] [address] [place] [address] Dr. Alek Fu UA PROTEIN Negative Normal NEGATIVE/ TRACE [facility] Comment on above: Performed By: #### E RUR #### [facility] [address] [place] [address] Dr. Alek Fu UR MICRO IND NOT INDICATED Normal [facility] Comment on above: Performed By: #### E RUR #### [facility] [address] [place] [address] Dr. Alek Fu Urobilinogen Qn (U) 0.2 {Roya'U}/dL Normal 0.2 - 1.0 [facility] Comment on above: Performed By: #### E RUR #### [facility] [address] [place] [address] Dr. Alek Fu URon 12-08-2020 , QUAL Negative Normal NEGATIVE [facility] Comment on above: Performed By: #### P REGU #### [facility] [address] [address] [address] Alek Fu PROF CHEM 8 (BAS METB)on Anion gap [Moles/Vol] 13.0 mmol/L Normal [facility] Comment on above: Performed By: #### B MP #### [facility] [address] [place] [address] Dr. Alek Fu Calcium [Mass/Vol] 9.0 mg/dL Normal 8.4-10.2 [facility] Comment on above: Performed By: #### B MP #### [facility] [address] [place] [address] Dr. Alek Fu Chloride [Moles/Vol] 103 mmol/L Normal 98-107 [facility] Comment on above: Performed By: #### B MP #### [facility] [address] [place] [address] Dr. Alek Fu CO2 [Moles/Vol] 25.0 mmol/L Normal 22.0-30.0 [facility] Comment on above: Performed By: #### B MP #### [facility] [address] [place] [address] Dr. Alek Fu Creatinine [Mass/Vol] 0.96 mg/dL Normal 0.52-1.04 [facility] Comment on above: Performed By: #### B MP #### [facility] [address] [place] [address] Dr. Alek Fu EGFR-AF BAHRAINI >60 Normal >=60 [facility] Comment on above: Performed By: #### B MP #### [facility] [address] [place] [address] Dr. Alek Fu EGFR-NON AF BAHRAINI >60 Normal >=60 [facility] Comment on above: Performed By: #### B MP #### [facility] [address] [place] [address] Dr. Alek Fu Glucose [Mass/Vol] 99 mg/dL Normal 74-106 [facility] Comment on above: Performed By: #### B MP #### [facility] [address] [place] [address] Dr. Alek Fu Potassium [Moles/Vol] 3.0 mmol/L Critically low 3.4-5.0 [facility] Comment on above: Performed By: #### B MP #### [facility] [address] [address] [address] Alek Fu Sodium [Moles/Vol] 138 mmol/L Normal 137-145 [facility] Comment on above: Performed By: #### B MP #### [facility] [address] [address] [address] Alek Fu Urea nitrogen [Mass/Vol] 11.0 mg/dL Normal 7.0-17.0 [facility] Comment on above: Performed By: #### B MP #### [facility] [address] [place] [address] Dr. Alek Fu Urea nitrogen/Creatinin e [Mass ratio] 11.5 mg/mg Normal [facility] Comment on above: Performed By: #### B MP #### [facility] [address] [place] [address] Dr. Alek Fu Covid-19 PCR (CVDTB)on 11-19 SARS-CoV-2 (COVID-19) RNA SANTANA+probe Ql (Unsp spec) Detected Critically abnormal NOT DETECTED [facility] Comment on above: Result Comment: This test is not yet approved or cleared by the [place] FDA. When there are no FDA-approved or cleared tests available, and other criteria are met, FDA can make tests available under an emergency access mechanism called an Emergency Use Authorization (EUA). The EUA for this test is supported by the [place] of Health and Human Service's (HHS's) declaration [...] longer be used). Performed By: #### C VDTBH #### [facility] [address] [place] [address] Dr. Alek Fu Vital Signs Date Time Vital Sign Value Performing Clinician Mayelin cruz 04-17-2024 11:18-0500 Body mass index (BMI) [Ratio] 39.51 kg/m2 Anai Jennyfer DO Work Phone: [facility] 04-17-2024 11:18-0500 Body weight 97.98 kg Anai Jennyfer DO Work Phone: [facility] 04-17-2024 11:18-0500 Diastolic blood pressure 78 mm[Hg] Anai Jennyfer DO Work Phone: [facility] 04-17-2024 11:18-0500 Systolic blood pressure 124 mm[Hg] Anai Jennyfer DO Work Phone: [facility] 04-10-2024 10:17-0500 Body mass index (BMI) [Ratio] 39.53 kg/m2 Amanda Juan PA Work Phone: [facility] 04-10-2024 10:17-0500 Body weight 98.03 kg Amanda Juan PA Work Phone: [facility] 04-10-2024 10:17-0500 Diastolic blood pressure 76 mm[Hg] Amanda Olean PA Work Phone: [facility] 04-10-2024 10:17-0500 Systolic blood pressure 116 mm[Hg] Amanda Olean PA Work Phone: [facility] 03-19-2024 10:38-0500 Body mass index (BMI) [Ratio] 37.68 kg/m2 Amanda Juan PA Work Phone: [facility] 03-19-2024 10:38-0500 Body weight 93.44 kg Amanda Olean PA Work Phone: [facility] 03-19-2024 10:38-0500 Diastolic blood pressure 76 mm[Hg] Amanda Olean PA Work Phone: [facility] 03-19-2024 10:38-0500 Systolic blood pressure 122 mm[Hg] Amanda Olean PA Work Phone: [facility] 03-05-2024 09:47-0500 Body mass index (BMI) [Ratio] 37.93 kg/m2 Amanda Juan PA Work Phone: [facility] 03-05-2024 09:47-0500 Body weight 94.08 kg Amanda Olean PA Work Phone: [facility] 03-05-2024 09:47-0500 Diastolic blood pressure 74 mm[Hg] Amanda Juan PA Work Phone: [facility] 03-05-2024 09:47-0500 Systolic blood pressure 110 mm[Hg] Amanda Juan PA Work Phone: [facility] 03-01-2024 11:46-0500 Body mass index (BMI) [Ratio] 37.57 kg/m2 Amanda Juan PA Work Phone: [facility] 03-01-2024 11:46-0500 Body weight 93.17 kg Amanda Olean PA Work Phone: [facility] 03-01-2024 11:46-0500 Diastolic blood pressure 90 mm[Hg] Amanda Juan PA Work Phone: [facility] 03-01-2024 11:46-0500 Systolic blood pressure 130 mm[Hg] Amanda Olean PA Work Phone: [facility] 02-20-2024 10:07-0500 Body mass index (BMI) [Ratio] 37.68 kg/m2 Anai Jennyfer DO Work Phone: [facility] 02-20-2024 10:07-0500 Body weight 93.44 kg Anai Jennyfer DO Work Phone: [facility] 02-20-2024 10:07-0500 Diastolic blood pressure 80 mm[Hg] Anai Jennyfer DO Work Phone: [facility] 02-20-2024 10:07-0500 Systolic blood pressure 122 mm[Hg] Anai Jennyfer DO Work Phone: [facility] 01-17-2024 10:15-0400 Body mass index (BMI) [Ratio] 36 kg/m2 Amanda Olean PA Work Phone: [facility] 01-17-2024 10:15-0400 Body weight 89.27 kg Amanda Olean PA Work Phone: [facility] 01-17-2024 10:15-0400 Diastolic blood pressure 70 mm[Hg] Amanda Olean PA Work Phone: [facility] 01-17-2024 10:15-0400 Systolic blood pressure 122 mm[Hg] Amanda Olean PA Work Phone: [facility] 12-20-2023 09:58-0400 Body mass index (BMI) [Ratio] 34.93 kg/m2 Amanda Juan PA Work Phone: [facility] 12-20-2023 09:58-0400 Body weight 86.64 kg Amanda Juan PA Work Phone: [facility] 12-20-2023 09:58-0400 Diastolic blood pressure 76 mm[Hg] Amanda Olean PA Work Phone: [facility] 12-20-2023 09:58-0400 Systolic blood pressure 124 mm[Hg] Amanda Olean PA Work Phone: [facility] 11-23-2023 09:47-0400 Body height 157.5 cm Lorene Hemmer PA Work Phone: [facility] 11-23-2023 09:47-0400 Body mass index (BMI) [Ratio] 34.39 kg/m2 Lorene Hemmer PA Work Phone: [facility] 11-23-2023 09:47-0400 Body weight 85.28 kg Lorene Hemmer PA Work Phone: [facility] 11-23-2023 09:47-0400 Diastolic blood pressure 86 mm[Hg] Lorene Hemmer PA Work Phone: [facility] 11-23-2023 09:47-0400 Heart rate 81 /min Lorene Hemmer PA Work Phone: [facility] 11-23-2023 09:47-0400 Respiratory rate 16 /min Lorene Hemmer PA Work Phone: [facility] 11-23-2023 09:47-0400 SaO2% (BldA) [Mass fraction] 98 % Lorene Sarah ROMAN Work Phone: [facility] 11-23-2023 09:47-0400 Systolic blood pressure 124 mm[Hg] Lorene Sarah ROMAN Work Phone: [facility] 11-22-2023 09:29-0400 Body mass index (BMI) [Ratio] 34.41 kg/m2 Anai Jennyfer DO Work Phone: [facility] 11-22-2023 09:29-0400 Body weight 85.33 kg Anai Jennyfer DO Work Phone: [facility] 11-22-2023 09:29-0400 Diastolic blood pressure 74 mm[Hg] Anai Jennyfer DO Work Phone: [facility] 11-22-2023 09:29-0400 Systolic blood pressure 122 mm[Hg] Anai Jennyfer DO Work Phone: [facility] Encounters Encounter Date Encounter Type Care Provider Facility Start: 04-24-2024 End: 04-24-2024 Bamboo flowsheet Anai Jennyfer DO Work Phone: [facility] Start: 04-24-2024 End: 04-24-2024 Bamboo flowsheet Anai Jennyfer DO Work Phone: [facility] Start: 04-21-2024 End: 04-21-2024 Clinisync Result Encounter Generic External Data Provider [facility] External [facility] Unsolicited Start: 04-21-2024 End: 04-21-2024 Clinisync Result Encounter Generic External Data Provider [facility] Unsolicited Start: 04-17-2024 End: 04-17-2024 Bamboo flowsheet Anai [...] Result Encounter Anai Jennyfer DO Work Phone: [facility] External Department Unsolicited Start: 04-03-2024 End: 04-03-2024 [...] of Start: 03-19-2024 End: 03-19-2024 ambulatory AMANDA JUAN Not Available Start: 03-05-2024 End: 03-05-2024 Bamboo flowsheet Amanda Martinez PA Work Phone: [facility] Start: 03-05-2024 End: 03-05-2024 Bamboo flowsheet Amanda Martinez PA Work Phone: [facility] Start: 03-05-2024 End: 03-05-2024 flow sheet Amanda Martinez PA Work Phone: [facility] Comment on above: 31 weeks gestation o f ; Third trimester Start: 03-05-2024 End: 03-05-2024 ambulatory AMANDA JUAN Not Available Start: 03-02-2024 End: 03-02-2024 Clinisync [...] OB Start: 03-01-2024 End: 03-01-2024 ambulatory AMANDA JUAN Not Available Start: 03-01-2024 End: 03-01-2024 flow sheet Amanda Vasquezey PA Work Phone: [facility] Comment [...] Start: 12-20-2023 End: 12-20-2023 flow sheet Amanda Juan PA Work Phone: [facility] Comment on above: Encounter for follow -up ultrasound of anatomy; Second trimester ; 20 weeks gestation of Start: 12-20-2023 End: 12-20-2023 ambulatory AMANDA AMRTINEZ Not Available Start: 12-09-2023 End: 12-11-2023 Clinisync Result Encounter Generic External Data Provider [facility] Unsolicited Start: 12-09-2023 End: 12-11-2023 Clinisync Result Encounter Generic External Data Provider [facility] External Department Unsolicited Start: 11-25-2023 End: 11-25-2023 Telephone encounter Cecille De Leon JANETT [facility] Start: 11-23-2023 End: 11-23-2023 [...] ; Vaginal discharge; STD exposure; Mood disorder ([facility]) Start: 10-24-2023 End: 10-24-2023 ambulatory [...] ne w 45 minutes Dee Buchanan [facility] Start: 05-11-2022 End: 05-11-2022 ambulatory Dee Buchanan Facility:[facility] Start: 05-11-2022 End: 05-11-2022 ambulatory MD Dee Buchanan Work Phone: [facility] Work Phone: Start: 05-11-2022 End: 05-11-2022 Patient encounter procedure MD Dee Buchanan Work Phone: [facility] Start: 08-10-2021 End: 08-10-[address] ANAI BURGER Facility:[facility] Start: 07-17-2021 End: 07-18-[address] LORENE PLASENCIA Facility:[facility] Start: 12-08-2020 End: 12-08-[address] VERITO LAMB Facility:[facility] Start: 12-03-2020 End: 12-03-[address] VERITO LAMB Facility:[facility] Procedures Date Procedure Procedure Detail Performing Clinician Start: 04-21-2024 US OB BPP W NON-STRESS Generic External Data Provider Start: 04-17-2024 Urnls dip stick/tabl et rgnt non-auto w/o micrscp Anai Jennyfer DO Work Phone: Start: 04-03-2024 ALL MISCELLANEOUS [...] Treatment Date Care Activity Detail Author Start: 04-24-2024 End: 04-24-2024 Patient encounter procedure [facility] Comment on above: Arrived Start: 04-17-2024 End: 04-17-2024 Patient encounter procedure 04/17/2024 10:50 AM EST Routine [facility] [address] [facility] [place] [id number] Anai Burger, [address] [place] [address] [facility] Start: 04-10-2024 End: 04-10-2024 [...] Routine [facility] [address] [place] [id number] Anai Burger DO [address] [place] [address] Arrived [facility] Comment on above: Arrived Start: 03-19-2024 End: 03-19-2024 Patient encounter procedure [facility] Comment on above: Arrived Start: 03-05-2024 End: 03-05-2024 Patient encounter procedure [facility] Comment on above: Arrived Start: 03-05-2024 End: 03-05-2024 Professional / ancillary services management 03/05/2024 9:00 AM EST Ancillary Procedure [facility] [address] [place] [id number] [facility] Start: 03-01-2024 End: 03-01-2025 Alanine aminotransferase [Enzymatic activity/volume] in Serum or Plasma ALT Lab Routine induced hypertension, antepartum Expected: 03/01/2024 (Approximate), Expires: 03/01/2025 [facility] Comment on above: Expected: 03/01/2024 (Approximate), Expires: 03/01/2025 Start: 03-01-2024 End: 03-01-2025 Aspartate aminotransferase [Enzymatic activity/volume] in Serum or Plasma AST Lab Routine induced hypertension, antepartum Expected: 03/01/2024 (Approximate), Expires: 03/01/2025 [facility] Comment on above: Expected: 03/01/2024 (Approximate), Expires: 03/01/2025 Start: 03-01-2024 End: 03-01-2025 CBC W Auto Differential panel - Blood CBC and differential Lab Routine induced hypertension, antepartum Expected: 03/01/2024 (Approximate), Expires: 03/01/2025 [facility] Comment on above: Expected: 03/01/2024 (Approximate), Expires: 03/01/2025 Start: 03-01-2024 End: 03-01-2025 Creatinine [Mass/volume] in Serum or Plasma Creatinine Lab Routine induced hypertension, antepartum Expected: 03/01/2024 (Approximate), Expires: 03/01/2025 [facility] Work Phone: Comment on above: Expected: 03/01/2024 (Approximate), Expires: 03/01/2025 Start: 03-01-2024 End: 03-01-2025 Lactate dehydrogenase [Enzymatic activity/volume] in Serum or Plasma by Lactate to pyruvate reaction Lactate dehydrogenase Lab Routine induced hypertension, antepartum Expected: 03/01/2024, Expires: 03/01/2025 [facility] Comment on above: Expected: 03/01/2024 , Expires: 03/01/2025 Start: 03-01-2024 End: 03-01-2025 Protein, urine, 24 hour Protein, urine, 24 hour Lab Routine induced hypertension, antepartum Expected: 03/01/2024 (Approximate), Expires: 03/01/2025 [facility] Comment on above: Expected: 03/01/2024 (Approximate), Expires: 03/01/2025 Start: 03-01-2024 End: 03-01-2025 Pt and ptt Pt and ptt Lab Routine induced hypertension, antepartum Expected: 03/01/2024, Expires: 03/01/2025 [facility] Comment on above: Expected: 03/01/2024 , Expires: 03/01/2025 Start: 03-01-2024 End: 03-01-2025 Urate [Mass/volume] in Serum or Plasma Uric acid Lab Routine induced hypertension, antepartum Expected: 03/01/2024 (Approximate), Expires: 03/01/2025 [facility] Comment on above: Expected: 03/01/2024 (Approximate), Expires: 03/01/2025 Start: 03-01-2024 End: 03-01-2025 Urea nitrogen [Mass/volume] in Serum or Plasma BUN Lab Routine induced hypertension, antepartum Expected: 03/01/2024, Expires: 03/01/2025 [facility] Comment on above: Expected: 03/01/2024 , Expires: 03/01/2025 Start: 03-01-2024 End: 03-01-2025 US biophysical profile w non stress test US biophysical profile w non stress test Imaging Routine Hypertension affecting in third trimester Lightheadedness Dizziness Expected: 03/01/2024 (Approximate), Expires: 03/01/2025 [facility] Comment on above: Expected: 03/01/2024 (Approximate), Expires: 03/01/2025 Start: 02-20-2024 End: 02-19-2025 US for US OB SCAN FOR GROWTH Imaging Routine Excessive growth affecting management of , antepartum, single or unspecified fetus Expected: 02/20/2024 (Approximate), Expires: 02/19/2025 [facility] Work Phone: Comment on above: Expected: [...] mellitus screening Expected: 01/17/2024 (Approximate), Expires: 01/16/2025 [facility] Comment on above: Expected: 01/17/2024 (Approximate), Expires: 01/16/2025 Start: 01-17-2024 End: 01-17-2024 Patient encounter procedure [facility] Comment on above: Arrived Start: 01-17-2024 End: 01-17-2024 Professional / ancillary services management 01/17/2024 9:30 AM EDT Ancillary Procedure [facility] [address] [place] [address] [facility] Start: 12-20-2023 End: 12-20-2023 Patient encounter procedure [facility] Comment on above: Arrived Start: 12-14-2023 End: 12-14-2023 Professional / ancillary services management 12/14/2023 9:00 AM EDT Ancillary Procedure [facility] [address] [place] [id number] [facility] Start: 11-22-2023 End: 05-21-2024 Alpha fetoprotein, maternal Alpha fetoprotein, maternal Lab Routine Second trimester Expected: 11/22/2023 (Approximate), Expires: 05/21/2024 [facility] Comment on above: Expected: 11/22/2023 (Approximate), Expires: 05/21/2024 Start: 11-22-2023 End: 11-21-2024 US for US OB ANATOMY SINGLE W US OB CERVICAL LENGTH Imaging Routine Screening, , for anatomic survey Expected: 11/22/2023 (Approximate), Expires: 11/21/2024 [facility] Comment on above: Expected: 11/22/2023 (Approximate), Expires: 11/21/2024 Start: 11-20-2023 Influenza vaccination Influenza Vacc ine (#1) [facility] CHLAMYDIA TRACHOMATI S (GENITO/STI) CHLAMYDIA TRACHOMATIS (GENITO/STI) Lab Routine STD exposure Ordered: 11/22/2023 [facility] Comment on above: Ordered: 11/22/2023 Cytology Cervical or vaginal smear or scraping study Pap Smear Pathology and Cytology Routine Well woman exam with routine gynecological exam Ordered: 11/22/2023 [facility] Comment on above: Ordered: 11/22/2023 Neisseria gonorrhoea e DNA [Presence] in Unspecified specimen by SANTANA with probe detection Neisseria gonorrhea DNA probe, direct Lab Routine STD exposure Ordered: 11/22/2023 [facility] Comment on above: Ordered: 11/22/2023 SURESWAB(R) ADVANCED VAGINITIS PLUS, TMA SURESWAB(R) ADVANCED VAGINITIS PLUS, TMA Pathology and Cytology Routine Vaginal discharge Ordered: 11/22/2023 [facility] Work Phone: Comment on above: Ordered: 11/22/2023 Immunizations Immunization Date Immunization Notes Care Provider Fa cility 12-09-2019 diphtheria, tetanus toxoids and pertussis vaccine Lorene ROMAN Work Phone: [facility] 12-09-2019 measles, mumps and rubella virus vaccine Lorene ROMAN Work Phone: [facility] 05-30-2000 diphtheria, tetanus toxoids and acellular pertussis vaccine, unspecified formulation Lorene ROMAN Work Phone: [facility] Work Phone: 05-30-2000 measles, mumps and rubella virus vaccine Lorene Hemmer PA Work Phone: [facility] 05-30-2000 poliovirus vaccine, inactivated Lorene Hemmer PA Work Phone: [facility] 03-30-2000 influenza, seasonal, injectable Lorene Hemmer PA Work Phone: [facility] 03-30-2000 influenza virus vaccine, unspecified formulation Lorene Hemmer PA Work Phone: [facility] 09-12-1998 haemophilus influenz ae type b vaccine, conjugate unspecified formulation Lorene Hemmer PA Work Phone: [facility] 11-28-1996 diphtheria, tetanus toxoids and acellular pertussis vaccine, unspecified formulation Lorene Hemmer PA Work Phone: [facility] 11-28-1996 haemophilus influenz ae type b vaccine, conjugate unspecified formulation Lorene Hemmer PA Work Phone: [facility] 11-28-1996 measles, mumps and rubella virus vaccine Lorene Hemmer PA Work Phone: [facility] 10-27-1996 trivalent poliovirus vaccine, live, oral Lorene Hemmer PA Work Phone: [facility] 01-31-1996 DTP-Haemophilus influenzae type b conjugate vaccine Lorene Hemmer PA Work Phone: [facility] 01-31-1996 hepatitis B vaccine, pediatric or pediatric/adolescent dosage Lorene Hemmer PA Work Phone: [facility] 01-31-1996 trivalent poliovirus vaccine, live, oral Lorene Hemmer PA Work Phone: [facility] 1995 DTP-Haemophilus influenzae type b conjugate vaccine Lorene Hemmer PA Work Phone: [facility] 1995 trivalent poliovirus vaccine, live, oral Lorene Hemmer PA Work Phone: [facility] 1995 DTP-Haemophilus influenzae type b conjugate vaccine Lorene Hemmer PA Work Phone: [facility] 1995 hepatitis B vaccine, pediatric or pediatric/adolescent dosage Lorene Welchstan ROMAN Work Phone: [facility] 1995 haemophilus influenz ae type b vaccine, conjugate unspecified formulation Lorene Sarah ROMAN Work Phone: [facility] 1995 hepatitis B vaccine, pediatric or pediatric/adolescent dosage Lorene Sarah ROMAN Work Phone: [facility] Healthcare Payers Date Payer Category Payer Managed Care O (unspecified) [id number] 2023 Private Health Insurance [id number] 2022 Private Health Insurance [id number] 2022 Self-pay 2022 Unknown [id number] 1995 Unknown [id number] 2.16.84 [id number] 1995 Unknown [id number] 2.16.84 0.1.657378.3.579.2.593 1995 Unknown [id number] 2.16.84 0.1.974255.3.579.2.593 1995 Unknown [id number] 2.16.84 0.1.062153.3.579.2.593 1995 Unknown [id number] 2.16.840.1.205230.3.579.2.1259 1995 Unknown [id number] 2.16.840.1.675107.3.579.2.1259 1995 Unknown [id number] 2.16.840.1.466747.3.579.2.1259 1995 Unknown [id number] 2.16.840.1.852039.3.579.2.1259 1995 Unknown [id number] 2.16.840.1.486635.3.579.2.1259 1995 Unknown [id number] 2.16.840.1.279814.3.579.2.9 1995 Unknown [id number] 2.16.840.1.623516.3.579.2.1258 1995 Unknown [id number] 2.16.840.1.424988.3.579.2.1258 1995 Unknown [id number] 2.16.840.1.232126.3.579.2.1258 1995 Unknown [id number] 2.16.840.1.987748.3.579.2.1258 1995 Unknown [id number] 2.16.840.1.402732.3.579.2.1258 1995 Unknown [id number] 2.16.840.1.404088.3.579.2.1258 1995 Unknown [id number] 2.16.840.1.397229.3.579.2.1258 1995 Unknown [id number] 2.16.840.1.011125.3.579.2.1258 1995 Unknown [id number] 2.16.840.1.462343.3.579.2.1258 1995 Unknown [id number] 2.16.840.1.939418.3.579.2.1258 1995 Unknown [id number] 2.16.840.1.035429.3.579.2.1259 1959 Unknown [id number] 1959 Unknown [id number] 1959 Unknown [id number] Unknown [id number] 2.16.840.1.884512.3.579.2.531 Social History Date Type Detail Facility Tobacco smoking stat [facility] Unknown if ever smoked [facility] Work Phone: Start: 1995 Sex Assigned At Female [facility] Start: 09-08-2023 End: 11-23-2023 Sex Assigned At [facility] Start: 11-24-2022 Tobacco smoking status NHIS Never [...] to any clubs or organizations such as faith groups, unions, fraternal or athletic groups, or [...] (finding) [facility] Clinical Notes 05-11-2022 to 04-17-2024 ABEL Carroll [...] Anai Burger DO documented in this encounter [facility] 04-10-2024 History of Presen t illness Narrative [...] of: ABEL Carroll documented in this encounter [facility] 04-03-2024 History of Presen t illness [...] nursing note reviewed. Exam conducted with a annealing operator present. Vitals: Estimated body mass index [...] Anai Burger DO documented in this encounter [facility] 03-19-2024 History of Presen t illness [...] of: ABEL Carroll documented in this encounter [facility] 03-05-2024 History of Presen t illness [...] of: ABEL Carroll documented in this encounter [facility] 03-01-2024 History of Presen t illness [...] of: ABEL Carroll documented in this encounter [facility] 02-20-2024 History of Presen t illness [...] auditory processing disorder Chronic ear infection Depression ([facility]) ETD (eustachian tube dysfunction) Ganglion [...] nursing note reviewed. Exam conducted with a annealing operator present. Vitals: Estimated body mass index [...] Anai Burger DO documented in this encounter [facility] 01-17-2024 History of Presen t illness [...] nursing note reviewed. Exam conducted with a annealing operator present. Vitals: Estimated body mass index [...] of: ABEL Carroll documented in this encounter [facility] 12-20-2023 History of Presen t illness [...] of: ABEL Carroll documented in this encounter [facility] 11-25-2023 Telephone encount er Note Understood. [facility] 11-25-2023 Miscellaneous Notes Formattin g of this note might be different from the original. Understood. Nazia called stating her ob just wants her on Effexor instead of buspirone so that's what she'll be on documented in this encounter [facility] 11-25-2023 Telephone encount er Note Nazia called stating her ob just wants her on Effexor instead of buspirone so that's what she'll be on [facility] 11-23-2023 History of Presen t illness [...] Medication Follow Up. documented in this encounter [facility] 11-22-2023 History of Presen t illness [...] nursing note reviewed. Exam conducted with a annealing operator present. Vitals: Estimated body mass index [...] DO documented in this encounter [facility] 05-11-2022 Evaluation note Encounter Date Diagnosis Assessment [...] Instructed patient to wear brace for activities. Karisma Kidz Other Evaluation noteNo assessment information available [facility] Work Phone: Evaluation note* Diagnosis Encounter for follow-up ultrasound of anatomy Second trimester state, incidental 20 weeks gestation of [facility] Diagnosis Diabetes mellitus screening Screening for diabetes mellitus Second trimester state, incidental 24 weeks gestation of documented in this encounter [facility] HealthcareEvaluation note* Diagnosis Third trimester state, incidental Excessive growth affecting management of , antepartum, single or unspecified fetus documented in this encounter [facility] Healthcare[facility] note* Diagnosis 31 weeks gestation of Third trimester state, incidental induced hypertension, antepartum Transient hypertension of , antepartum Hypertension affecting in third trimester Lightheadedness Dizziness and giddiness Dizziness Dizziness and giddiness documented in this encounter [facility] Healthcare[facility] note* Diagnosis 31 weeks gestation of Third trimester state, incidental documented in this encounter [facility] Healthcare[facility] note* Diagnosis Agitation- Primary Other and [...] History learning disability Surgical History tymponostomy x7 Karisma Kidz Other Summary Purpose Family History No Family History Records FoundNo Family History Records FoundNo Family History Records Found Advance Directives No Advanced Directives Records FoundNo Advanced Directives Records FoundNo Advanced Directives Records Found Additional Source Comments INFORMATION SOURCE (unrecogn ized section and content) DATE CREATED AUTHOR [facility] DATE CREATED AUTHOR AUTHOR'S ORGANIZ ATION 05/21/2022 [facility] DATE CREATED AUTHOR AUTHOR'S ORGANIZ ATION 04/18/2024 [facility] EPIC Care Teams (unrecognized sec tion and content) Team Status: Inactive Member Role Status Dates Dee Buchanan MD Attending Provider Active Sharepoint Engineer Relationship Specialty Start Date End Date Verito Lamb MD [address] [address] PCP - General Family Medicine 10/18/22 Sharepoint Engineer Relationship Specialty Start Date End Date Verito Lamb MD [address] [address] PCP - General Family Medicine 10/18/22 Sharepoint Engineer Relationship Specialty Start Date End Date Verito Lamb MD [address] [place] [address] PCP - General Family Medicine 10/18/22 Sharepoint Engineer Relationship Specialty Start Date End Date Verito Lamb MD [address] [place] [address] PCP - General Family Medicine 10/18/22 Sharepoint Engineer Relationship Specialty Start Date End Date Verito Lamb MD [address] [place] [address] PCP - General Family Medicine 10/18/22 Sharepoint Engineer Relationship Specialty Start Date End Date Verito Lamb MD [address] [place] [address] PCP - General Family Medicine 10/18/22 Sharepoint Engineer Relationship Specialty Start Date End Date Verito Lamb MD [address] [place] [address] PCP - General Family Medicine 10/18/22 Sharepoint Engineer Relationship Specialty Start Date End Date Verito Lamb MD [address] [place] [address] PCP - General Family Medicine 10/18/22 Sharepoint Engineer Relationship Specialty Start Date End Date Verito Lamb MD [address] [place] [address] PCP - General Family Medicine 10/18/22 Sharepoint Engineer Relationship Specialty Start Date End Date Verito Lamb MD [address] [place] [address] PCP - General Family Medicine 10/18/22 Sharepoint Engineer Relationship Specialty Start Date End Date Verito Lamb MD [address] [facility] [address] [place] [address] PCP - General Family [facility] 10/18/22 Sharepoint Engineer Relationship Specialty Start Date End Date Verito Lamb MD [address] [facility] [address] [place] [address] PCP - General Family Medicine 10/18/22 Sharepoint Engineer Relationship Specialty Start Date End Date Verito Lamb MD [address] [facility] [address] [place] [address] PCP - [facility] 10/18/22 Sharepoint Engineer Relationship Specialty Start Date End Date Verito Lamb MD [address] [facility] [address] [place] [address] PCP - [facility] 10/18/22 Sharepoint Engineer Relationship Specialty Start Date End Date Verito Lamb MD [address] [facility] [address] [place] [address] PCP - [facility] Medicine 10/18/22 Goals (unrecognized section and [...] BE BASED ON THE PRIMARY CLINICAL RECORDS. [facility] [employer] [facility] provides no warranty or guarantee of the accuracy or completeness of information in this document.
[2024-04-25 11:24] VITALS: BP 133/86; PULSE 63; TEMP 36.3
== END 2024-04-25 12:03 | disposition home or self-care (01) ==
LOC: FBCO 01:05 → FBC 11:14
PROVIDERS: PCP Family Medicine; Visit Provider Obstetrics & Gynecology
DX: O16.3 Unspecified maternal hypertension, third trimester (principal)
CPT/HCPCS: 59025

== ENCOUNTER 2024-04-28 06:37 | Outpatient (OUT) | payer OTHER, SELFPAY ==
--- NOTE | 2024-04-28 | US_ITS ---
[address] [address] Patient Name: ELIZABETH MOLINA MRN: [id number] date: 1995 Sex: F Assigned Patient Location: [facility] Current Patient Location: Accession/Order Number: [id number] Exam Date: 04/28/2024 14:50 Report Date: 04/30/2024 07:10 At the request of: ANAI AMADO Procedure: US OB BPP w non-stress EXAMINATION: US OB BPP w non-stress HISTORY: Hypertension COMPARISON: No relevant comparison available. TECHNIQUE: Ultrasound biophysical profile was performed in the radiology department. non-reactive stress testing was performed by nursing staff in the birthing center. FINDINGS: BREATHING MOVEMENTS: 2 GROSS BODY MOVEMENTS: 2 TONE: 2 QUALITATIVE AMNIOTIC FLUID VOLUME: 2 PRESENTATION: CEPHALIC HEART RATE: 126.76 bpm AMNIOTIC FLUID VOLUME: 10.5 cm GESTATIONAL AGE: 39 weeks 3 days US/US OB BPP w non-stress IMPRESSION: Total biophysical profile score: 8 Electronically authenticated by: ZURI PHOENIX Date: 04/30/2024 07:10
--- OUTSIDE RECORDS SUMMARY | 2024-04-28 06:40 | XMS_ITS | CCD ---
Author Organization [facility] Care Team Providers Care Civil Engineering Assistant Name Role Phone JENNYFER, DR OSPINA Admitting [...] Consulting Unavailable MD Dee Buchanan Attending Provider [phone] Dee Buchanan Attending Unavailable Dee Buchaann Admitting Unavailable Dee Buchanan Unavailable Verito Lamb MD Primary Care Provider AMANDA MARTINEZ Attending Unavailable ANAI BURGER Attending Unavailable LORENE PLASENCIA Attending Unavailable HEMLORENE MANDEL Attending Unavailable SANGEETHA GRAY Attending Unavailable JENNYFERANAI Attending Unavailable AMANDA MARTINEZ Attending Unavailable JENNYFERANAI OLIVA Attending Unavailable ANAI BURGER Attending Unavailable HEMLORENE MANDEL Attending Unavailable AMANDA MARTINEZ Attending Unavailable AMANDA MARTINEZ Attending Unavailable JENNYFERANAI Attending Unavailable JUANAMANDA Attending Unavailable JUANAMANDA Attending Unavailable AMANDA MARTINEZ Attending Unavailable ANAI BURGER Attending Unavailable Allergies Allergy Classification Reported Allergen(s) Allergy Type Date of Onset Reaction(s) Facility (1 source) Cephalexin Drug Allergy [facility] Repository (20 sources) ARIPiprazole Drug Allergy 3 [facility] Work Phone: (20 sources) cariprazine Drug Allergy [...] [facility] Healthcare (12 sources) Flavoring Agent (Non-Screening) Allergy [...] [Gastro-esophageal reflux disease without esophagitis] Onset: 08-18-2022 3 Chronic Hypertension complicating ; childbirth and the [...] US OB BPP W NON-STRESS on 04-21-2024 [place] [address] Ultrasound Report Signed Patient: NAZIA RUIZ MR#: [id number] : 1995 Acct:[id number] Age/Sex: 28 / F ADM Date: 04/21/24 Loc: FBCO Attending Dr: Anai Burger D.O. Ordering Physician: Anai Burger D.O. Date of Service: 04/21/24 Procedure(s): US OB BPP w non-stress Accession Number(s): [id number] cc: VERITO LAMB ; Anai Burger D.O. [place] [address] Patient Name: NAZIA RUIZ MRN: [id number] date: 1995 Sex: F Assigned Patient Location: [facility] Current Patient Location: Accession/Order Number: [id number] Exam Date: 04/21/2024 15:06 Report Date: 04/21/2024 [...] By: Priscilla Montejo M.D. Signed By: 04/21/24 1751 DD/ 1742 TD/TT: Exploitation Analyst: [facility] Radiology, Radiologist, MD - 04/21/2024 [place] [address] Ultrasound Report Signed Patient: NAZIA RUIZ MR#: [id number] : 1995 Acct:[id number] Age/Sex: 28 / F ADM Date: 04/21/24 Loc: FBVT Attending Dr: Anai Burger D.O. Ordering Physician: Anai Burger D.O. Date of Service: 04/21/24 Procedure(s): US OB BPP w non-stress Accession Number(s): [id number] cc: VERITO LAMB ; Anai Burger D.O. The [address] [address] Patient Name: NAZIA RUIZ MRN: [facility]:[id number] date: 1995 Sex: F Assigned Patient Location: [facility] Current Patient Location: Accession/Order Number: [id number] Exam Date: 04/21/2024 15:06 Report Date: 04/21/2024 [...] Montejo M.D. Signed By: 04/21/24 175 DD/ 46 TD/TT: Exploitation Analyst: [facility] Radiology Study observation (narrative) [facility] US OB BPP W NON-STRESS Ordered By: Radiologist Radiology on 04-21-2024 [facility] [employer] Work Phone: Urinalysis macro (dipstick) panel (U)on 04-17-2024 Bilirubin, UA Negative Negative - 4(70) +++ mg/dL [facility] Blood, UA Negative Negative - 50 Neno/mcL [facility] Clarity, UA Clear [facility] [employer] re Color, UA Yellow [facility] e Glucose, UA Negative Negative - 2000(110) [...] Center pH, UA 7 5 - 9 [facility] Protein, UA Positive Negative - 1999(20) ++++ mg/dL [facility] Comment on above: 100 Spec Grav, UA 1.02 1 - 1.03 [facility] Urobilinogen, UA 0.2 0.2 - 12 mg/dL [facility] e ALL MISCELLANEOUS TESTon MISCELLANEOUS TEST COMMENT . [facility] H ealthcare Comment on above: Test Ordered: [id number] Strep Gp B Culture+Rflx Strep Gp B Culture+Rflx Negative CB Reference Range: Negative Centers for Disease Control and Prevention (CDC) and [place] [employer] of Obstetricians and Gynecologists (ACOG) guidelines [...] resistance to clindamycin is noted. Performed at: [facility] [address] [id number] Nutrition Director: Nadir Schaffer PhD, Phone: [phone] GROUP B STREP [id number] Group B Streptococcus Colonization Detection Culture With Re [facility] e Urinalysis macro (dipstick) panel (U)on 03-19-2024 Bilirubin, UA Positive Negative - 4(70) +++ mg/dL [facility] Comment on above: small Blood, UA Positive Negative - 50 Neno/mcL [facility] Comment on above: trace Clarity, UA Cloudy [facility] re Color, UA Marilyn [facility] e Glucose, UA Negative Negative - 1999(110) ++++ mg/dL [facility] Interpretation and review of laboratory results Abnormal [facility] re Ketones, UA Negative Negative - 160(16) ++++ mg/dL [facility] Leukocytes, UA Trace Negative - 500+++ Virgie/mcL [facility] Nitrite, UA Negative Negative - Positive [facility] pH, UA 6 5 - 9 [facility] Healthcar e Protein, UA Positive Negative - 1999(20) ++++ mg/dL [facility] Comment on above: 30 Spec Grav, UA 1.03 1 - 1.03 [facility] Urobilinogen, UA 0.2 0.2 - 12 mg/dL [facility] e Urinalysis macro (dipstick) panel (U)on 03-05-2024 Bilirubin, UA Negative Negative - 4(70) +++ mg/dL [facility] Blood, UA Negative Negative - 50 Neno/mcL [facility] Clarity, UA Clear [facility] Healthca re Color, UA Yellow [facility] Glucose, UA Negative Negative - 1999(110) ++++ mg/dL [facility] Interpretation and review of laboratory results Abnormal [facility] re Ketones, UA Negative Negative - 160(16) ++++ mg/dL [facility] Leukocytes, UA Positive Negative - 500+++ Virgie/mcL [facility] Comment on above: small Nitrite, UA Negative Negative - Positive [facility] pH, UA 6 5 - 9 [facility] Protein, UA Negative Negative - 1999(20) ++++ mg/dL [facility] Spec Grav, UA 1.015 1 - 1.03 [facility] Urobilinogen, UA 0.2 0.2 - 12 mg/dL [facility] e CCF APTTon 03-02-2024 aPTT Coag (Bld) [Time] 23.9 s [facility] No Panel Informationon 03-02 [facility] e SRMCOH PROTHROMBIN TIME INR W/O COUMon 03-02-2024 PT Coag (PPP) [Time] 9.9 s [facility] TB INR 0.93 [facility] Clarity, UA Clear [facility] Healthca re Color, UA Yellow [facility] Glucose, UA Negative Negative - 1999(110) ++++ mg/dL [facility] Interpretation and review of laboratory results Abnormal [facility] Ketones, UA Negative Negative - 160(16) ++++ mg/dL [facility] Leukocytes, UA Positive Negative - 500+++ Virgie/mcL [facility] Healthcare Comment on above: small Nitrite, UA Negative Negative - Positive [facility] pH, UA 7 5 - 9 [facility] Protein, UA Trace Negative - 1999(20) ++++ mg/dL [facility] Spec Grav, UA 1.02 1 - 1.03 [facility] Urobilinogen, UA 0.2 0.2 - 12 mg/dL [facility] GLUCOSE 1 HOURon 01-25-2024 Glucose [Mass/Vol] 131 mg/dL High NINF - 13 0 mg/dL [facility] Interpretation and review of laboratory results Abnormal [facility] e Urinalysis macro (dipstick) panel (U)on 01-17-2024 Bilirubin, UA Negative Negative - 4(70) +++ mg/dL [facility] Blood, UA Negative Negative - 50 Neno/mcL [facility] Clarity, UA Clear [facility] Healthca re Color, UA Yellow [facility] Healthcar e Glucose, UA Negative Negative - 1999(110) ++++ mg/dL [facility] Interpretation and review of laboratory results Abnormal [facility] Healthca re Ketones, UA Negative Negative - 160(16) ++++ mg/dL [facility] Leukocytes, UA Trace Negative - 500+++ Virgie/mcL [facility] Nitrite, UA Negative Negative - Positive [facility] pH, UA 6 5 - 9 [facility] Healthcar e Protein, UA Negative Negative - 1999(20) ++++ mg/dL [facility] Spec Grav, UA 1.02 1 - 1.03 [facility] Urobilinogen, UA 1.0 0.2 - 12 mg/dL [facility] Urinalysis macro (dipstick) panel (U)on 12-20-2023 Bilirubin, UA Negative Negative - 4(70) +++ mg/dL [facility] Blood, UA Negative Negative - 50 Neno/mcL [facility] Healthcare Clarity, UA Clear [facility] Color, UA Yellow [facility] Glucose, UA Negative Negative - 1999(110) ++++ mg/dL [facility] Interpretation and review of laboratory results Abnormal [facility] re Ketones, UA Negative Negative - 160(16) ++++ mg/dL [facility] Leukocytes, UA Trace Negative - 500+++ Virgie/mcL [facility] Nitrite, UA Negative Negative - Positive [facility] pH, UA 6.5 5 - 9 [facility] e Protein, UA Negative Negative - 1999(20) ++++ mg/dL [facility] Spec Grav, UA 1.025 1 - 1.03 [facility] Urobilinogen, UA 0.2 0.2 - 12 mg/dL [facility] AFP, SERUM, OPEN SPINA BIFID Aon 12-11-2023 AFP MOM 0.79 . [facility] e AFP VALUE 34.7 ng/mL . [facility] e COMMENT: Comment . [facility] e Comment on above: Treva Gong , Ph.D., [facility] Director References: Available Upon Request. Multiples Of Median Cutoffs For AFP Elevations Banuelos 2.5 Black 2.8 IDD 2.0 Twins 4.5 Abbreviation Definitions IDD - Insulin Dep Diabetes OSBR - Open Spina Bifida Risk For further inquiries contact [email or web address] [facility] at [phone]. This test was developed and its performance characteristics determined by [employer]. It has not been cleared or approved by the Food and Drug Administration. Performed at: [facility] [address] [place], [place] [id number] Nutrition Director: Maira Jones [facility], Phone: [phone] GEST. AGE ON COLLECTION DATE 19.3 . weeks [facility] GESTAT. AGE BASED ON LMP . [facility] Comment on above: Recalculations are n ot recommended when gestational dating by LMP and ultrasound are within 10 days. INSULIN DEP DIABETES No . [facility] INTERPRETATION Comment . [facility] Healt hcare Comment on above: Interpretation: Scre [...] Customer Services to discuss available options. The [place] [employer] recommends amniocentesis be offered to women age 35 and older. [age] [facility] [employer] (acquired by [employer]) MULTIPLE GESTATION No . [facility] [place] R[place]K [place] [phone] . [facility] Healt hcare RACE . [facility] [employer] RESULTS Report . [facility] [employer] TEST RESULTS: Negative . [facility] [employer] WEIGHT 188 . lbs [facility] Bruxiecar e N N LMP [id number] 16 N 1 Y 188 N N N N N White/ [facility] [employer] IGP,APTIMA HPV,AGE GDLNon AGE GDLN ACOG TESTING Note . [facility] Comment on above: TESTS RESULT FLAG UN ITS REF RANGE LAB Clinician Provided Cytology Information Source.............Cervix No. of containers..01 ThinPrep Vial Age Algo ACOG Madonna... -18 04 FLAG LEGEND: L-Low Normal,H-High Normal,LL-Alert Low,HH-Alert High <-Panic Low,>-Panic High,A-Abnormal,AA-Critical Abnormal Performed at: 01 =[facility] [place] [place] [address] Tierra Morales MD, IGP, RFX APTIMA HPV ASCU Note . [facility] Comment on above: TESTS RESULT FLAG U NITS REF RANGE LAB DIAGNOSIS: 02 NEGATIVE FOR INTRAEPITHELIAL LESION OR MALIGNANCY. Specimen adequacy: 02 Satisfactory for evaluation. No endocervical component is identified. Performed by: 02 Francesca Blanc, Network Director ([facility]) . 02 Note: Note 02 The [...] <-Panic Low,>-Panic High,A-Abnormal,AA-Critical Abnormal Performed at: [address] [facility] [address] [place] [address] Tierra Morales MD, Performed at: = - [facility] [address], [place] [id number] Nutrition Director: Tierra Morales MD, Phone: [phone] Performed at: [facility] [address], [place] [id number] Nutrition Director: Tierra Morales MD, Phone: [phone] SPATULA-ALONE CERVIX [facility] Urinalysis macro (dipstick) panel (U)on 11-22-2023 Bilirubin, UA Negative Negative - 4(70) +++ mg/dL [facility] Blood, UA Negative Negative - 50 Neno/mcL [facility] Clarity, UA Clear [facility] Color, [...] Spec Grav, UA 1.025 1 - 1.03 [facility] Urobilinogen, UA 1.0 0.2 - 12 mg/dL [facility] XR wrist LT min 3V*on 2022 XR wrist LT min 3V* [facility] [address] XRay Report Signed Patient: Nazia Harper MR#: [id number] : 1995 Acct:[id number] Age/Sex: 26 / F ADM Date: 05/11/22 [place] [facility] Room: Type: [facility] Attending Dr: Dee Buchanan MD Copies to: [...] Travis Jr., D.OJuanis05/11/2022 12:18 PM Dictation Location: [id number] Transcribed By: [facility] 05/11/22 1218 Dictated By: Tan Travis Jr, DO 05/11/22 1217 Signed By: 05/11/22 1218 Normal [facility] XR wrist LT min 3V* [facility] [employer] Other XR wrist LT min 3V* [facility] [employer] Other XR wrist LT min 3V* [address] [place] [address] [employer] Other XR wrist LT min 3V* [place] [address] [employer] Other XR wrist LT min 3V* XRay Report [employer] Other XR wrist LT min 3V* Signed [employer] Other XR wrist LT min 3V* Patient: Nazia Harper MR#: [id number] [employer] Other XR wrist LT min 3V* 67 [employer] Other XR wrist LT min 3V* : 1995 Acct:[id number] [employer] Other XR wrist LT min 3V* Age/Sex: 26 / F ADM Date: 05/11/22 [employer] Other XR wrist LT min 3V* Loc: SOXD Room: Type: [facility] [employer] Other XR wrist LT min 3V* Attending Dr: Dee Buchanan MD [employer] Other XR wrist LT min 3V* Copies to: Dee Buchanan MD [employer] Other XR wrist LT min 3V* Ordering Provider: Dee Buchanan MD [employer] Other XR wrist LT min 3V* Date of Service: 05/11/22 [employer] Other XR wrist LT min 3V* XR/XR wrist LT min 3V*: PAIN [employer] Other XR wrist LT min 3V* LEFT WRIST - 4 views [employer] Other XR wrist LT min 3V* CLINICAL HISTORY: Ganglion cyst posterior aspect at the level of the carpals. [employer] Other XR wrist LT min 3V* COMPARISON: None [employer] Other XR wrist LT min 3V* FINDINGS: [employer] Other XR wrist LT min 3V* No focal soft tissue abnormality is noted. No acute bony process is seen. Carpal bones appear [employer] Other XR wrist LT min 3V* unremarkable. [employer] Other XR wrist LT min 3V* XR/XR wrist LT min 3V* [employer] Other XR wrist LT min 3V* IMPRESSION: [employer] Other XR wrist LT min 3V* NO ACUTE BONY PROCESS. [employer] Other XR wrist LT min 3V* Impression dictated by: Tan Travis Jr., D.O.05/11/2022 12:18 PM [employer] Other XR wrist LT min 3V* Dictation Location: [place] [address] [employer] Other XR wrist LT min 3V* Transcribed By: PWS 05/11/22 [facility] [employer] Other XR wrist LT min 3V* Dictated By: Tan Travis Jr DO 05/11/22 [facility] [employer] Other XR wrist LT min 3V* Signed By: [employer] Other XR wrist LT min 3V* 05/11/22 [facility] [employer] Other PAP ACOG PANEL 2: 21 to 29on 08-15-2021 . . Normal [facility] Comment on above: Result Comment: Perf ormed at: BA Performed By: #### [id number] #### [facility] [address] [place] [address] Dr. Alek Fu Age Gdln ACOG Testing - [facility] Comment on above: Performed By: #### [id number] #### [facility] [address] [place] [address] Dr. Alek Fu DIAGNOSIS: Comment [facility] Comment on above: Result Comment: NEGA TIVE FOR INTRAEPITHELIAL LESION OR MALIGNANCY. Performed at: BA Performed By: #### [id number] #### [facility] [address] [place] [address] Dr. Alek Fu Methodology: Comment [facility] Comment on above: Result Comment: This liquid based ThinPrep(R) pap test was screened with the use of an image guided system. Performed at: WB Performed By: #### [id number] #### [facility] [address] [place] [address] Dr. Alek Fu Note: Comment [facility] Comment on above: Result Comment: The Pap smear is a screening test designed to aid in the detection of premalignant and malignant conditions of the uterine cervix. It is not a diagnostic procedure and should not be used as the sole means of detecting cervical cancer. Both false-positive and false-negative reports do occur. . Performed at: WB Performed By: #### [id number] #### [facility] [address] [place] [address] Dr. Alek Fu Performed by: Comment [facility] Comment on above: Result Comment: Elen Carrillo, Network Director (AS[facility]) Performed at: BA Performed By: #### [id number] #### [facility] [address] [place] [address] Dr. Alek Fu Reflex Criteria: Comment [facility] Comment on above: Result Comment: The HPV DNA reflex criteria were not met with this specimen result therefore, no HPV testing was performed. . Performed at: BA Performed By: #### 4 [id number] #### [facility] [address] [place] [address] Dr. Alek Fu Specimen adequacy: Comment Normal [facility] Comment on above: Result Comment: Sati sfactory for evaluation. Endocervical and/or squamous metaplastic cells (endocervical component) are present. Performed at: BA Performed By: #### 4 [id number] #### [facility] [address] [place] [address] Dr. Alek Fu XR KNEE SABRINA 4V [...] ZURI PHOEN[place] Date: 2021-07-17 17:09 Normal [facility] CBC AUTO DIFFon 12-08-2020 BASO # 0.0 103/ul Normal 0.0-0.1 [facility] Comment on above: Performed By: #### C BC #### [facility] [address] [place] [address] Dr. Alek Fu Basophils/100 WBC (Bld) 0.2 % Normal 0.2-2.0 [facility] Comment on above: Performed By: #### C BC #### [facility] [address] [place] [address] Dr. Alek Fu EO # 0.0 103/ul Normal 0.0-0.7 [facility] Comment on above: Performed By: #### C BC #### [facility] [address] [place] [address] Dr. Alek Fu Eosinophils/100 WBC (Bld) 0.6 % Critically low 0.9-7.0 [facility] Comment on above: Performed By: #### C BC #### [facility] [address] [place] [address] Dr. Alek Fu Erythrocyte distribution width (RBC) [Ratio] 12.4 % Normal 11.0-15.0 [facility] Comment on above: Performed By: #### C BC #### [facility] [address] [place] [address] Dr. Alek Fu Hematocrit (Bld) [Volume fraction] 44.3 % Normal 36.0-48.0 [facility] Comment on above: Performed By: #### C BC #### [facility] [address] [place] [address] Dr. Alek Fu Hemoglobin (Bld) [Mass/Vol] 15.4 g/dL Normal 12.0-16.0 [facility] Comment on above: Performed By: #### C BC #### [facility] [address] [place] [address] Dr. Alek Fu IG # 0.04 10e3/ul Critically high 0.00-0.03 [facility] Comment on above: Performed By: #### C BC #### [facility] [address] [place] [address] Dr. Alek Fu IG % 0.6 % Critically high 0.0-0.5 [facility] Comment on above: Performed By: #### C BC #### [facility] [address] [place] [address] Dr. Alek Fu LYMPH # 3.2 103/ul Normal 1.2-3.8 [facility] Comment on above: Performed By: #### C BC #### [facility] [address] [place] [address] Dr. Alek Fu Lymphocytes/100 WBC (Bld) 50.2 % Normal 20.5-60.0 [facility] Comment on above: Performed By: #### C BC #### [facility] [address] [place] [address] Dr. Alek Fu MANUAL DIFF REQ NO Normal [facility] Comment on above: Performed By: #### C BC #### [facility] [address] [place] [address] Dr. Alek Fu MCH (RBC) [Entitic mass] 28.7 pg Normal 26.7-34.0 [facility] Comment on above: Performed By: #### C BC #### [facility] [address] [address] [address] Alek Fu MCHC (RBC) [Mass/Vol] 34.8 g/dL Normal 29.9-35.2 [facility] Comment on above: Performed By: #### C BC #### [facility] [address] [place] [address] Dr. Alek Fu MCV (RBC) [Entitic vol] 82.5 fL Normal 81.0-99.0 [facility] Comment on above: Performed By: #### C BC #### [facility] [address] [place] [address] Dr. Alek Fu MONO # 0.6 103/ul Normal 0.3-0.8 [facility] Comment on above: Performed By: #### C BC #### [facility] [address] [place] [address] Dr. Alek Fu Monocytes/100 WBC (Bld) 10.0 % Normal 1.7-12.0 [facility] Comment on above: Performed By: #### C BC #### [facility] [address] [place] [address] Dr. Alek Fu NEUT # 2.4 103/ul Normal 1.4-6.5 [facility] Comment on above: Performed By: #### C BC #### [facility] [address] [place] [address] Dr. Alek Fu Neutrophils/100 WBC (Bld) 38.4 % Critically low 43.0-75.0 [facility] Comment on above: Performed By: #### C BC #### [facility] [address] [place] [address] Dr. Alek Fu Platelet mean volume (Bld) [Entitic vol] 9.9 fL Normal 9.5-13.5 [facility] Comment on above: Performed By: #### C BC #### [facility] [address] [place] [address] Dr. Alek Fu PLT 206 103/ul Normal 150-450 [facility] Comment on above: Performed By: #### C BC #### [facility] [address] [place] [address] Dr. Alek Fu RBC 5.37 106/ul Normal 4.20-5.40 [facility] Comment on above: Performed By: #### C BC #### [facility] [address] [place] [address] Dr. Alek Fu WBC 6.3 103/ul Normal 4.0-11.0 [facility] Comment on above: Performed By: #### C BC #### [facility] [address] [place] [address] Dr. Alek Fu ER URINE PROFILEon 1 Bilirubin Ql (U) Negative Normal NEGATIVE [facility] Comment on above: Performed By: #### E RUR #### [facility] [address] [place] [address] Dr. Alek Fu Clarity (U) CLEAR Normal CLEAR [facility] Comment on above: Performed By: #### E RUR #### [facility] [address] [place] [address] Dr. Alek Fu Color (U) YELLOW Normal YELLOW [facility] Comment on above: Performed By: #### E RUR #### [facility] [address] [place] [address] Dr. Alek HAWKINSNika A micrscopic examination will be performed if indicated. Normal [facility] Comment on above: Performed By: #### E RUR #### [facility] [address] [place] [address] Dr. Alek Fu Glucose Ql (U) Negative Normal NEGATIVE The [facility] Comment on above: Performed By: #### E RUR #### [facility] [address] [place] [address] Dr. Alek Fu Hemoglobin Ql (U) TRACE-INTACT Abnormal NEGATIVE [facility] Comment on above: Performed By: #### E RUR #### [facility] [address] [place] [address] Dr. Alek Fu Ketones Ql (U) TRACE Abnormal NEGATIVE [facility] Comment on above: Performed By: #### E RUR #### [facility] [address] [place] [address] Dr. Alek Fu LEUKOCYTES Negative Normal NEGATIVE [facility] Comment on above: Performed By: #### E RUR #### [facility] [address] [place] [address] Dr. Alek Fu Nitrite Ql (U) Negative Normal NEGATIVE [facility] Comment on above: Performed By: #### E RUR #### [facility] [address] [place] [address] Dr. Alek Fu pH (U) 6.0 [pH] Normal 5-9 [facility] Comment on above: Performed By: #### E RUR #### [facility] [address] [place] [address] Dr. Alek Fu SPEC GRAVITY 1.015 Normal 1.005-<=1.025 [facility] Comment on above: Performed By: #### E RUR #### [facility] [address] [place] [address] Dr. Alek Fu UA PROTEIN Negative Normal NEGATIVE/ TRACE [facility] Comment on above: Performed By: #### E RUR #### [facility] [address] [place] [address] Dr. Alek Fu UR MICRO IND NOT INDICATED Normal [facility] Comment on above: Performed By: #### E RUR #### [facility] [address] [place] [address] Dr. Alek Fu Urobilinogen Qn (U) 0.2 {Roya'U}/dL Normal 0.2 - 1.0 [facility] Comment on above: Performed By: #### E RUR #### [facility] [address] [place] [address] Dr. Alek Fu URon 12-08-2020 , QUAL Negative Normal NEGATIVE [facility] Comment on above: Performed By: #### P REGU #### [facility] [address] [address] [address] Alek Fu PROF CHEM 8 (BAS METB)on Anion gap [Moles/Vol] 13.0 mmol/L Normal [facility] Comment on above: Performed By: #### B MP #### [facility] [address] [address] [address] Alek Fu Calcium [Mass/Vol] 9.0 mg/dL Normal 8.4-10.2 [facility] Comment on above: Performed By: #### B MP #### [facility] [address] [address] [address] Alek Fu Chloride [Moles/Vol] 103 mmol/L Normal 98-107 [facility] Comment on above: Performed By: #### B MP #### [facility] [address] [place] [address] Dr. Alek Fu CO2 [Moles/Vol] 25.0 mmol/L Normal 22.0-30.0 [facility] Comment on above: Performed By: #### B MP #### [facility] [address] [place] [address] Dr. Alek Fu Creatinine [Mass/Vol] 0.96 mg/dL Normal 0.52-1.04 [facility] Comment on above: Performed By: #### B MP #### [facility] [address] [place] [address] Dr. Alek Fu EGFR-AF ZIMBABWEAN >60 Normal >=60 [facility] Comment on above: Performed By: #### B MP #### [facility] [address] [place] [address] Dr. Alek Fu EGFR-NON AF ZIMBABWEAN >60 Normal >=60 [facility] Comment on above: Performed By: #### B MP #### [facility] [address] [place] [address] Dr. Alek Fu Glucose [Mass/Vol] 99 mg/dL Normal 74-106 [facility] Comment on above: Performed By: #### B MP #### [facility] [address] [place] [address] Dr. Alek Fu Potassium [Moles/Vol] 3.0 mmol/L Critically low 3.4-5.0 [facility] Comment on above: Performed By: #### B MP #### [facility] [address] [address] [address] Alek Fu Sodium [Moles/Vol] 138 mmol/L Normal 137-145 [facility] Comment on above: Performed By: #### B MP #### [facility] [address] [address] [address] Alek Fu Urea nitrogen [Mass/Vol] 11.0 mg/dL Normal 7.0-17.0 [facility] Comment on above: Performed By: #### B MP #### [facility] [address] [place] [address] Dr. Alek Fu Urea nitrogen/Creatinin e [Mass ratio] 11.5 mg/mg Normal [facility] Comment on above: Performed By: #### B MP #### [facility] [address] [place] [address] Dr. Alek Fu [facility]19 SARS-CoV-2 (COVID-19) RNA SANTANA+probe Ql (Unsp spec) Detected Critically abnormal NOT DETECTED [facility] Comment on above: Result Comment: This test is not yet approved or cleared by the [place] FDA. When there are no FDA-approved or cleared tests available, and other criteria are met, FDA can make tests available under an emergency access mechanism called an Emergency Use Authorization (EUA). The EUA for this test is supported by the Speech Language Pathology Assistant of Health and Human Service's (HHS's) declaration [...] used). Performed By: #### C VDTBH #### [facility] [address] [place] [address] Dr. Alek Fu Vital Signs Date Time Vital Sign Value Performing Clinician Mayelin cruz 04-17-2024 11:18-0500 Body mass index (BMI) [Ratio] 39.51 kg/m2 Anai Jennyfer DO Work Phone: [facility] 04-17-2024 11:18-0500 Body weight 97.98 kg Anai Jennyfer DO Work Phone: [facility] 04-17-2024 11:18-0500 Diastolic blood pressure 78 mm[Hg] Anai Jennyfer DO Work Phone: [facility] 04-17-2024 11:18-0500 Systolic blood pressure 124 mm[Hg] Anai Jennyfer DO Work Phone: [facility] 04-10-2024 10:17-0500 Body mass index (BMI) [Ratio] 39.53 kg/m2 Amanda Juan PA Work Phone: [facility] 04-10-2024 10:17-0500 Body weight 98.03 kg Amanda Reidville PA Work Phone: [facility] 04-10-2024 10:17-0500 Diastolic blood pressure 76 mm[Hg] Amanda Juan PA Work Phone: [facility] 04-10-2024 10:17-0500 Systolic blood pressure 116 mm[Hg] Amanda Juan PA Work Phone: [facility] 03-19-2024 10:38-0500 Body mass index (BMI) [Ratio] 37.68 kg/m2 Amanda Reidville PA Work Phone: [facility] 03-19-2024 10:38-0500 Body weight 93.44 kg Amanda Reidville PA Work Phone: [facility] 03-19-2024 10:38-0500 Diastolic blood pressure 76 mm[Hg] Amanda Juan PA Work Phone: [facility] 03-19-2024 10:38-0500 Systolic blood pressure 122 mm[Hg] Amanda Reidville PA Work Phone: [facility] 03-05-2024 09:47-0500 Body mass index (BMI) [Ratio] 37.93 kg/m2 Amanda Juan PA Work Phone: [facility] 03-05-2024 09:47-0500 Body weight 94.08 kg Amanda Reidville PA Work Phone: [facility] 03-05-2024 09:47-0500 Diastolic blood pressure 74 mm[Hg] Amanda Reidville PA Work Phone: [facility] 03-05-2024 09:47-0500 Systolic blood pressure 110 mm[Hg] Amanda Reidville PA Work Phone: [facility] 03-01-2024 11:46-0500 Body mass index (BMI) [Ratio] 37.57 kg/m2 Amanda Reidville PA Work Phone: [facility] 03-01-2024 11:46-0500 Body weight 93.17 kg Amanda Reidville PA Work Phone: [facility] 03-01-2024 11:46-0500 Diastolic blood pressure 90 mm[Hg] Amanda Reidville PA Work Phone: [facility] 03-01-2024 11:46-0500 Systolic blood pressure 130 mm[Hg] Amanda [place] PA Work Phone: [facility] [...] 10:15-0400 Systolic blood pressure 122 mm[Hg] Amanda Reidville PA Work Phone: [facility] 12-20-2023 09:58-0400 Body mass index (BMI) [Ratio] 34.93 kg/m2 Amanda Reidville PA Work Phone: [facility] 12-20-2023 09:58-0400 Body weight 86.64 kg Amanda Reidville PA Work Phone: [facility] 12-20-2023 09:58-0400 Diastolic blood pressure 76 mm[Hg] Amanda Reidville PA Work Phone: [facility] 12-20-2023 09:58-0400 Systolic blood pressure 124 mm[Hg] Amanda [place]ville PA Work Phone: [facility] [...] SaO2% (BldA) [Mass fraction] 98 % Lorene ROMAN Work Phone: [facility] 11-23-2023 09:47-0400 Systolic blood pressure 124 mm[Hg] Lorene ROMAN Work Phone: [facility] [...] [facility] Start: 04-24-2024 End: 04-24-2024 ambulatory ANAI JENNYFER Not Available Start: 04-21-2024 End: 04-21-2024 Clinisync Result Encounter [...] Start: 03-19-2024 End: 03-19-2024 flow sheet Amanda Martinze PA Work Phone: [facility] Comment [...] Bamboo flowsheet Anai Jennyfer DO Work Phone: [facility] Start: 02-20-2024 End: 02-20-2024 Bamboo flowsheet Anai Jennyfer DO Work Phone: [facility] Start: 02-20-2024 End: 02-20-2024 flow sheet Anai Jennyfer DO Work Phone: [facility] Comment on above: Third [...] 01-17-2024 Bamboo flowsheet Amanda ROMAN Work Phone: [facility] Start: 01-17-2024 End: 01-17-2024 Bamboo flowsheet Amanda ROMAN Work Phone: [facility] Start: 01-17-2024 End: 01-17-2024 flow sheet Amanda ROMAN Work Phone: [facility] Comment on above: Diabetes mellitus sc reening; Second trimester ; 24 weeks gestation of Start: 01-17-2024 End: 01-17-2024 ambulatory AMANDA MARTINEZ Not Available Start: 12-20-2023 End: 12-20-2023 Bamboo flowsheet Amanda ROMAN Work Phone: [facility] Start: 12-20-2023 End: 12-20-2023 Bamboo [...] encounter procedure Anai Burger DO Work Phone: [facility] Start: 11-22-2023 End: 11-22-2023 Periodic preventive med est patient 18-39 yrs Anai Farooqo DO Work Phone: [facility] Comment on above: Screening, , for anatomic survey; Well woman exam with routine gynecological exam; Second trimester ; Vaginal discharge; STD exposure; Mood disorder ([facility] Start: 10-24-2023 End: 10-24-2023 ambulatory ANAI BURGER [...] Start: 05-11-2022 End: 05-11-2022 ambulatory Dee Buchanan Facility:[facility] Start: 05-11-2022 End: 05-11-2022 ambulatory MD Dee Buchanan Work Phone: [facility] Work Phone: Start: 05-11-2022 End: 05-11-2022 Patient encounter procedure MD Dee Buchanan Work Phone: [facility] Start: 08-10-2021 End: 08-10-[address] ANAI BURGER Facility:[facility] Start: 07-17-2021 End: 07-18-[address] LORENE PLASENCIA Facility:[facility] Start: 12-08-2020 End: 12-08-[address] VERITO LAMB Facility:[facility] Start: 12-03-2020 End: 12-03-[address] VERITO LAMB Facility: Procedures Date Procedure Procedure Detail Performing Clinician [...] micrscp Anai Burger DO Work Phone: Start: 05-11-2022 Plain X-ray of left wrist MD Dee Buchanan Work Phone: Plan of Treatment Date Care Activity Detail Author Start: 04-24-2024 End: 04-24-2024 Patient encounter procedure [facility] Comment on above: Arrived Start: 04-17-2024 End: 04-17-2024 Patient encounter procedure 04/17/2024 10:50 AM EST Routine [facility] [address] [place] [address] Anai Burger, DO [address] [place], [place] [id number] [facility] Start: 04-10-2024 End: 04-10-2024 [...] AM EST Routine [facility] [address] [place] [id number] Anai Burger, DO [address] [place], [place] [id number] Arrived [facility] Comment on above: Arrived Start: 03-19-2024 End: 03-19-2024 Patient encounter procedure [facility] Comment on above: Arrived Start: 03-05-2024 End: 03-05-2024 Patient encounter procedure [facility] Comment on above: Arrived Start: 03-05-2024 End: 03-05-2024 Professional / ancillary services management 03/05/2024 9:00 AM EST Ancillary Procedure [facility] [address] [place] [address] [facility] Start: 03-01-2024 End: 03-01-2025 Alanine [...] 03/01/2025 [facility] Work Phone: Comment on above: Expected: [...] Expected: 02/20/2024 (Approximate), Expires: 02/19/2025 [facility] Work Phone: Comment on above: Expected: 02/20/2024 [...] mellitus screening Expected: 01/17/2024 (Approximate), Expires: 01/16/2025 [facility] Comment on above: Expected: 01/17/2024 (Approximate), Expires: 01/16/2025 Start: 01-17-2024 End: 01-17-2024 Patient encounter procedure [facility] Comment on above: Arrived Start: 01-17-2024 End: 01-17-2024 Professional / ancillary services management 01/17/2024 9:30 AM EDT Ancillary Procedure [facility] [address] [place] [address] [facility] Start: 12-20-2023 End: 12-20-2023 Patient encounter procedure [facility] Comment on above: Arrived Start: 12-14-2023 End: 12-14-2023 Professional / ancillary services management 12/14/2023 9:00 AM EDT Ancillary Procedure [facility] [address] [place] [address] [facility] Start: 11-22-2023 End: 05-21-2024 [...] vaccine Lorene ROMAN Work Phone: [facility] 12-09-2019 measles, mumps and rubella virus vaccine Lorene ROMAN Work Phone: [facility] 05-30-2000 diphtheria, tetanus toxoids and acellular pertussis vaccine, unspecified formulation Lorene Plasencia PA Work Phone: [facility] [...] DTP-Haemophilus influenzae type b conjugate vaccine Lorene Plasencia ABEL Work Phone: [facility] 1995 hepatitis B vaccine, pediatric or pediatric/adolescent dosage Lorene Plasencia ABEL Work Phone: [facility] 1995 haemophilus influenz ae type b vaccine, conjugate unspecified formulation Lorene Welchstan ROMAN Work Phone: [facility] 1995 hepatitis B vaccine, pediatric or pediatric/adolescent dosage Lorene Plasencia ABEL Work Phone: [facility] Healthcare Payers Date Payer Category Payer Managed Care HMO (unspecified) [id number] 2023 Private Health Insurance [id number] 2022 Private Health Insurance [id number] 2022 Self-pay 2022 Unknown [id number] 1995 Unknown [id number] 2.16.84 [id number] 1995 Unknown [id number] 2.16.84 0.1.347079.3.579.2.593 1995 Unknown [id number] 2.16.84 0.1.601980.3.579.2.593 1995 Unknown [id number] 2.16.84 0.1.670314.3.579.2.593 1995 Unknown [id number] 2.16.840.1.868139.3.579.2.1259 1995 Unknown [id number] 2.16.840.1.049313.3.579.2.1259 1995 Unknown [id number] 2.16.840.1.794696.3.579.2.1259 1995 Unknown [id number] 2.16.840.1.605272.3.579.2.1259 1995 Unknown [id number] 2.16.840.1.562069.3.579.2.1258 1995 Unknown [id number] 2.16840.1.087995.3.579.2.1258 1995 Unknown [id number] 2.16840.1.215818.3.579.2.1258 1995 Unknown [id number] 2.840.1.208968.3.579.2.1258 1995 Unknown [id number] 2.840.1.110695.3.579.2.1258 1995 Unknown [id number] 2.840.1.142720.3.579.2.1258 1995 Unknown [id number] 2.840.1.549814.3.579.2.1258 1995 Unknown [id number] 2.840.1.848482.3.579.2.1258 1995 Unknown [id number] 2.0.1.746351.3.579.2.1258 1995 Unknown [id number] 2.0.1.064219.3.579.2.1258 1995 Unknown [id number] 2.840.1.482996.3.579.2.1258 1995 Unknown [id number] 2840.1.723062.3.579.2.1258 1995 Unknown [id number] 2.840.1.464313.3.579.2.1258 1995 Unknown [id number] 2.840.1.276607.3.579.2.9 1959 Unknown [id number] 1959 Unknown [id number] 1959 Unknown [id number] Unknown [id number] Social History Date Type Detail Facility Tobacco smoking stat us NHIS Unknown if ever smoked [facility] Work Phone: Start: 1995 Sex Assigned At Female [facility] Start: 09-08-2023 End: 11-23-2023 Sex [...] to any clubs or organizations such as oriental orthodox groups, unions, fraternal or athletic groups, or [...] beverage intake Current drinker of alcohol (finding) [facility] Clinical Notes 05-11-2022 to 04-17-2024 ABEL [...] encounter [facility] 04-10-2024 History of Presen t illness Narrative [...] encounter [facility] 04-03-2024 History of Presen t illness [...] nursing note reviewed. Exam conducted with a pole climber present. Vitals: Estimated body mass index is [...] encounter [facility] 03-19-2024 History of Presen t illness [...] nursing note reviewed. Exam conducted with a pole climber present. Vitals: Estimated body mass index is [...] nursing note reviewed. Exam conducted with a pole climber present. Vitals: Estimated body mass index is [...] nursing note reviewed. Exam conducted with a pole climber present. Vitals: Estimated body mass index is [...] Instructed patient to wear brace for activities. [employer] Other Evaluation noteNo assessment information available [facility] Work Phone: Evaluation note* Diagnosis Encounter for follow-up ultrasound of anatomy Second trimester state, incidental 20 weeks gestation of documented in this encounter [facility] Diabetes mellitus screening Screening for diabetes mellitus Second trimester state, incidental 24 weeks gestation of documented in this encounter [facility] HealthcareEvaluation note* Diagnosis Third trimester state, incidental Excessive growth affecting management of , antepartum, single or unspecified fetus documented in this encounter [facility] HealthcareEvaluation note* Diagnosis 31 weeks gestation of Third trimester state, incidental induced hypertension, antepartum Transient hypertension of , antepartum Hypertension affecting in third trimester Lightheadedness Dizziness and giddiness Dizziness Dizziness and giddiness documented in this encounter [facility] HealthcareEvaluation note* Diagnosis 31 weeks gestation of [...] History learning disability Surgical History tymponostomy x7 [employer] Other Summary Purpose Family History No Family History Records FoundNo Family History Records FoundNo Family History Records Found Advance Directives No Advanced Directives Records FoundNo Advanced Directives Records FoundNo Advanced Directives Records Found Additional Source Comments INFORMATION SOURCE (unrecogn ized section and content) DATE CREATED AUTHOR 09/12/2021 [facility] DATE CREATED AUTHOR AUTHOR'S ORGANIZ ATION 05/21/2022 [facility] DATE CREATED AUTHOR AUTHOR'S ORGANIZ ATION 04/26/2024 [facility] [employer] Care Teams (unrecognized sec tion and content) Team Status: Inactive Member Role Status Dates Dee Buchanan MD Attending Provider Active Civil Engineering Assistant Relationship Specialty Start Date End Date Verito Lamb MD [address] [facility] [address] [place] [address] PCP - General Family Medicine 10/18/22 Civil Engineering Assistant Relationship Specialty Start Date End Date Verito Lamb MD [address] [facility] [address] [place] [address] PCP - General Family Medicine 10/18/22 Civil Engineering Assistant Relationship Specialty Start Date End Date Verito Lamb MD [address] [place] [address] PCP - General Family Medicine 10/18/22 Civil Engineering Assistant Relationship Specialty Start Date End Date Verito Lamb MD [address] [place] [address] PCP - General Family Medicine 10/18/22 Civil Engineering Assistant Relationship Specialty Start Date End Date Verito Lamb MD [address] [place] [address] PCP - General Family Medicine 10/18/22 Civil Engineering Assistant Relationship Specialty Start Date End Date Verito Lamb MD [address] [place] [address] PCP - General Family Medicine 10/18/22 Civil Engineering Assistant Relationship Specialty Start Date End Date Verito Lamb MD [address] [place] [address] PCP - General Family Medicine 10/18/22 Civil Engineering Assistant Relationship Specialty Start Date End Date Verito Lamb MD [address] [place] [address] PCP - General Family Medicine 10/18/22 Civil Engineering Assistant Relationship Specialty Start Date End Date Verito Lamb MD [address] [place] [address] PCP - General Family Medicine 10/18/22 Civil Engineering Assistant Relationship Specialty Start Date End Date Verito Lamb MD [address] [facility] [address] [place] [address] PCP - [facility] 10/18/22 Civil Engineering Assistant Relationship Specialty Start Date End Date Verito Lamb MD [address] [facility] [address] [place] [address] PCP - [facility] 10/18/22 Civil Engineering Assistant Relationship Specialty Start Date End Date Verito Lamb MD [address] [facility] [address] [place] [address] PCP - [facility] 10/18/22 Civil Engineering Assistant Relationship Specialty Start Date End Date Verito Lamb MD [address] [facility] [address] [place] [address] PCP - [facility] 10/18/22 Civil Engineering Assistant Relationship Specialty Start Date End Date Verito Lamb MD [address] [facility] [address] [place] [address] PCP - [facility] 10/18/22 Civil Engineering Assistant Relationship Specialty Start Date End Date Verito Lamb MD [address] [facility] [address] [place] [address] PCP - [facility] Medicine 10/18/22 Goals (unrecognized section and [...] BE BASED ON THE PRIMARY CLINICAL RECORDS. [facility] [employer] provides no warranty or guarantee of the accuracy or completeness of information in this document.
[2024-04-28 15:09] VITALS: BP 135/89; PULSE 78
== END 2024-04-28 15:45 | disposition home or self-care (01) ==
LOC: US 06:37 → FBC 14:45
PROVIDERS: PCP Family Medicine; Visit Provider Obstetrics & Gynecology
DX: O16.3 Unspecified maternal hypertension, third trimester (principal); Z3A.39 39 weeks gestation of pregnancy
CPT/HCPCS: 59025; 76818

== ENCOUNTER 2024-05-01 05:08 | Inpatient (IN) | payer OTHER, SELFPAY ==
[2024-05-01] VITALS (30 sets, daily range): BP systolic 120–185; BP diastolic 60–103; PULSE 54–107; TEMP 36.4–37.2
--- OUTSIDE RECORDS SUMMARY | 2024-05-01 05:13 | XMS_ITS | CCD ---
Author Organization [facility] Care Team Providers Care Director Recreation Name Role Phone JENNYFER, DR OSPINA Admitting [...] Verito Lamb MD Primary Care Provider AMANDA AMRTINEZ Attending Unavailable ANAI BURGER Attending Unavailable LORENE [...] Allergy [facility] Repository (20 sources) ARIPiprazole Drug Allergy 3 [facility] Work Phone: (20 sources) cariprazine Drug Allergy 3 [facility] Healthcare (20 sources) Cephalexin Drug Allergy 3 Unknown [facility] (20 sources) Propofol Drug Allergy 3 Unknown [facility] (20 sources) Flavoring Agent Allergy to substance 3 Unknown [facility] (20 sources) Mosquito (Diagnostic) Drug Allergy 3 Unknown [facility] (15 sources) Flavoring Agent (Non-Screening) Allergy to substance 3 Unknown [facility] Medications Current Medications Medication [...] omeprazole 20 mg delayed release oral capsule (14 sources) Proton Pump Inhibitor Start: 04-03-2024 End: [...] Hypertension complicating ; childbirth and the puerperium (4 sources) -induced hypertension; Translations: [Gestational [-induced] hypertension [...] [37 weeks gestation of ] 04-17-2024 Episodic Residual codes; unclassified (2 sources) Gestation period, 38 weeks; Translations: [38 weeks gestation of ] 04-24-2024 Episodic Unclassified (1 source) Pain in left [...] Facility US OB BPP W NON-STRESS on 04-30-2024 [place] [address] Ultrasound Report Signed Patient: NAZIA RUIZ MR#: [id number] : 1995 Acct:[id number] Age/Sex: 28 / F ADM Date: 04/28/24 Loc: US Attending Dr: Anai Burger D.O. Ordering Physician: Anai Burger D.O. Date of Service: 04/28/24 Procedure(s): US OB BPP w non-stress Accession Number(s): [id number] cc: VERITO LAMB ; Anai Burger D.O. [place] [address] Patient Name: NAZIA RUIZ MRN: [facility]:[id number] date: 1995 Sex: F Assigned Patient Location: [facility] Current Patient Location: Accession/Order Number: [id number] Exam Date: 04/28/2024 14:50 Report Date: 04/30/2024 07:10 At the request of: ANAI BURGER Procedure: US OB BPP w non-stress EXAMINATION: US OB BPP w non-stress HISTORY: Hypertension COMPARISON: No relevant comparison available. TECHNIQUE: Ultrasound biophysical profile was performed in the radiology department. non-reactive stress testing was performed by nursing staff in the birthing center. FINDINGS: BREATHING MOVEMENTS: 2 GROSS BODY MOVEMENTS: 2 TONE: 2 QUALITATIVE AMNIOTIC FLUID VOLUME: 2 PRESENTATION: CEPHALIC HEART RATE: 126.76 bpm AMNIOTIC FLUID VOLUME: 10.5 cm GESTATIONAL AGE: 39 weeks 3 days US/US OB BPP w non-stress IMPRESSION: Total biophysical profile score: 8 Electronically authenticated by: ZURI PHOENIX Date: 04/30/2024 07:10 Dictated By: Zuri Phoenix M.D. Signed By: 04/30/24711 DD/ 9 TD/TT: Croze Machine Operator: [facility] Radiology, Radiologist, - 04/30/2024 [place] [address] Ultrasound Report Signed Patient: NAZIA RUIZ MR#: [id number] : 1995 Acct:[id number] Age/Sex: 28 / F ADM Date: 04/28/24 Loc: US Attending Dr: Anai Burger D.O. Ordering Physician: Anai Burger D.O. Date of Service: 04/28/24 Procedure(s): US OB BPP w non-stress Accession Number(s): [id number] cc: VERITO LAMB ; Anai Burger D.O. The [place] [address] Patient Name: NAZIA RUIZ MRN: [facility]:[id number] date: 1995 Sex: F Assigned Patient Location: [facility] Current Patient Location: Accession/Order Number: [id number] Exam Date: 04/28/2024 14:50 Report Date: 04/30/2024 07:10 At the request of: ANAI BURGER Procedure: US OB BPP w non-stress EXAMINATION: US OB BPP w non-stress HISTORY: Hypertension COMPARISON: No relevant comparison available. TECHNIQUE: Ultrasound biophysical profile was performed in the radiology department. non-reactive stress testing was performed by nursing staff in the birthing center. FINDINGS: BREATHING MOVEMENTS: 2 GROSS BODY MOVEMENTS: 2 TONE: 2 QUALITATIVE AMNIOTIC FLUID VOLUME: 2 PRESENTATION: CEPHALIC HEART RATE: 126.76 bpm AMNIOTIC FLUID VOLUME: 10.5 cm GESTATIONAL AGE: 39 weeks 3 days US/US OB BPP w non-stress IMPRESSION: Total biophysical profile score: 8 Electronically authenticated by: ZURI PHOENIX Date: 04/30/2024 07:10 Dictated By: Zuri Phoenix M.D. Signed By: 04/30/24711 DD/ 9 TD/TT: Croze Machine Operator: [facility] Radiology Study observation (narrative) [facility] US OB BPP W NON-STRESS Ordered By: Radiologist Radiology on 04-30-2024 [employer] Work Phone: Urinalysis macro (dipstick) panel (U)on 04-24-2024 Bilirubin, UA Negative Negative - 4(70) +++ mg/dL [facility] Blood, UA Negative Negative - 50 Neno/mcL [facility] Clarity, UA Clear [facility] [employer] re Color, UA Yellow [facility] [email or web address] e Glucose, UA Negative Negative - 1999(110) ++++ mg/dL [facility] Interpretation and review of laboratory results Abnormal [facility] [employer] re Ketones, UA Negative Negative - 160(16) ++++ mg/dL [facility] Leukocytes, UA Negative Negative - 500+++ Virgie/mcL [facility] Nitrite, UA Negative Negative - Positive [facility] pH, UA 7.5 5 - 9 [facility] [email or web address] Protein, UA Many Negative - 2000(20) ++++ mg/dL [facility] Spec Grav, UA 1.025 1 - 1.03 [facility] Urobilinogen, UA 1.0 0.2 - 12 mg/dL [facility] US OB BPP W NON-STRESS on 04-21-[address] [address] Ultrasound Report Signed Patient: NAZIA RUIZ MR#: [id number] : 1995 Acct:[id number] Age/Sex: 28 / F ADM Date: 04/21/24 Loc: FBCO Attending Dr: Anai Burger D.O. Ordering Physician: Anai Burger D.O. Date of Service: 04/21/24 Procedure(s): US OB BPP w non-stress Accession Number(s): [id number] cc: VERITO LAMB ; Anai Burger D.O. [place] [address] Patient Name: NAZIA RUIZ MRN: [facility]:[id number] date: 1995 Sex: F Assigned Patient Location: [facility] Current Patient Location: Accession/Order Number: [id number] Exam Date: 04/21/2024 15:06 Report Date: 04/21/2024 [...] By: Priscilla Montejo M.D. Signed By: 04/21/24 5009 DD/ 3165 TD/TT: Croze Machine Operator: [facility] Radiology, Radiologist, - 04/21/2024 The [place] [id number] Ultrasound Report Signed Patient: NAZIA RUIZ MR#: [id number] : 1995 Acct:[id number] Age/Sex: 28 / F ADM Date: 04/21/24 Loc: FBCO Attending Dr: Anai Burger D.O. Ordering Physician: Anai Burger D.O. Date of Service: 04/21/24 Procedure(s): US OB BPP w non-stress Accession Number(s): [id number] cc: VERITO LAMB ; Anai Burger D.O. The [place] [id number] Patient Name: NAZIA RUIZ MRN: [id number]:[id number] date: 1995 Sex: F Assigned Patient Location: [facility] Current Patient Location: Accession/Order Number: [id number] Exam Date: 04/21/2024 15:06 Report Date: 04/21/2024 [...] Signed By: 04/21/24 175 DD/ 46 TD/TT: Croze Machine Operator: [facility] Radiology Study observation (narrative) [facility] OB BPP W NON-STRESS Ordered By: Radiologist Radiology on 04-21-2024 [facility] [email or web address] Work Phone: Urinalysis macro (dipstick) panel (U)on 04-17-2024 Bilirubin, UA Negative Negative - 4(70) +++ mg/dL [facility] Blood, UA Negative Negative - 50 Neno/mcL [facility] Clarity, UA Clear [facility] [employer] re Color, UA Yellow [facility] Glucose, UA Negative Negative - 2000(110) ++++ mg/dL [facility] Interpretation and review of laboratory results Abnormal [facility] re Ketones, UA Negative Negative - 160(16) ++++ mg/dL [facility] Leukocytes, UA Trace Negative - 500+++ Virgie/mcL [facility] Nitrite, UA Negative Negative - Positive [facility] pH, UA 7 5 - 9 [facility] Protein, UA Positive Negative - 1999(20) ++++ mg/dL [facility] Comment on above: 100 Spec Grav, UA 1.02 1 - 1.03 [facility] Urobilinogen, UA 0.2 0.2 - 12 mg/dL [facility] Health[facility] e ALL MISCELLANEOUS TESTon MISCELLANEOUS TEST COMMENT . [facility] ealthcare Comment on above: Test Ordered: [id number] Strep Gp B Culture+Rflx Strep Gp B Culture+Rflx Negative CB Reference Range: Negative Centers for Disease Control and Prevention (CDC) and [place] [employer]stetric[employer] and Gynecologists (ACOG) guidelines [...] resistance to clindamycin is noted. Performed at: [facility] [address] [id number] Process Inspector: Nadir Schaffer PhD, Phone: [phone] GROUP B STREP [id number] Group B Streptococcus Colonization Detection Culture With Re [facility] Urinalysis macro (dipstick) panel (U)on 03-19-2024 Bilirubin, UA Positive Negative - 4(70) +++ mg/dL [facility] Comment on above: small Blood, UA Positive Negative - 50 Neno/mcL [facility] Comment on above: trace Clarity, UA Cloudy [facility] Color, UA Marilyn [facility] Glucose, UA Negative Negative - 1999(110) ++++ mg/dL [facility] Interpretation and review of laboratory results Abnormal [facility] Ketones, UA Negative Negative - 160(16) ++++ mg/dL [facility] Leukocytes, UA Trace Negative - 500+++ Virgie/mcL [facility] Nitrite, UA Negative Negative - Positive [facility] pH, UA 6 5 - 9 [facility] Health[facility] e Protein, UA Positive Negative - 1999(20) ++++ mg/dL [facility] Comment on above: 30 Spec Grav, UA 1.03 1 - 1.03 [facility] Urobilinogen, UA 0.2 0.2 - 12 mg/dL [facility] Urinalysis macro (dipstick) panel (U)on 03-05-2024 Bilirubin, UA Negative Negative - 4(70) +++ mg/dL [facility] Blood, UA Negative Negative - 50 Neno/mcL [facility] Clarity, UA Clear [facility] Color, UA Yellow [facility] Glucose, UA Negative Negative - 1999(110) ++++ mg/dL [facility] Interpretation and review of laboratory results Abnormal [facility] Ketones, UA Negative Negative - 160(16) ++++ mg/dL [facility] Leukocytes, UA Positive Negative - 500+++ Virgie/mcL [facility] Comment on above: small Nitrite, UA Negative Negative - Positive [facility] pH, UA 6 5 - 9 [facility] Protein, UA Negative Negative - 1999(20) ++++ mg/dL [facility] Spec Grav, UA 1.015 1 - 1.03 [facility] Urobilinogen, UA 0.2 0.2 - 12 mg/dL [facility] CCF APTTon 03-02-2024 aPTT Coag (Bld) [Time] 23.9 s [facility] No Panel Informationon 03-02 [facility] Healthcar e SRMCOH PROTHROMBIN TIME INR W/O COUMon 03-02-2024 PT Coag (PPP) [Time] 9.9 s [facility] TB INR 0.93 [facility] e Comment on above: DESIRED INR: 2.0-3.0 CONDITIONS NOT LISTED BELOW 2.5-3.5 FOR PROSTHETIC HEART VALVE REPLACEMENT 2.5-3.5 RECURRENT THROMBOSIS Urinalysis macro (dipstick) panel (U)on 03-01-2024 Bilirubin, UA Negative Negative - 4(70) +++ mg/dL [facility] Blood, UA Negative Negative - 50 Neno/mcL [facility] Clarity, UA Clear [facility] re Color, UA Yellow [facility] e Glucose, UA Negative Negative - 1999(110) ++++ mg/dL [facility] Interpretation and review of laboratory results Abnormal [facility] Ketones, UA Negative Negative - 160(16) ++++ mg/dL [facility] Leukocytes, UA Positive Negative - 500+++ Virgie/mcL [facility] Comment on above: small Nitrite, UA Negative Negative - Positive [facility] pH, UA 7 5 - 9 [facility] e Protein, UA Trace Negative - 1999(20) ++++ mg/dL [facility] Spec Grav, UA 1.02 1 - 1.03 [facility] Urobilinogen, UA 0.2 0.2 - 12 mg/dL [facility] GLUCOSE 1 HOURon 01-25-2024 Glucose [Mass/Vol] 131 mg/dL High NINF - 13 0 mg/dL [facility] Interpretation and review of laboratory results Abnormal [facility] re [facility] e Urinalysis macro (dipstick) panel (U)on 01-17-2024 Bilirubin, UA Negative Negative - 4(70) +++ mg/dL [facility] Blood, UA Negative Negative - 50 Neno/mcL [facility] Clarity, UA Clear [facility] Color, UA Yellow [facility] Healthcar e Glucose, UA Negative Negative - 1999(110) ++++ mg/dL [facility] Interpretation and review of laboratory results Abnormal [facility] Ketones, UA Negative Negative - 160(16) ++++ mg/dL [facility] Leukocytes, UA Trace Negative - 500+++ Virgie/mcL [facility] Nitrite, UA Negative Negative - Positive [facility] pH, UA 6 5 - 9 [facility] Healthcar e Protein, UA Negative Negative - 1999(20) ++++ mg/dL [facility] Spec Grav, UA 1.02 1 - 1.03 [facility] care Urobilinogen, UA 1.0 0.2 - 12 mg/dL [facility] Urinalysis macro (dipstick) panel (U)on 12-20-2023 Bilirubin, UA Negative Negative - 4(70) +++ mg/dL [facility] Blood, UA Negative Negative - 50 Neno/mcL [facility] Clarity, UA Clear [facility] Color, UA Yellow [facility] Glucose, UA Negative Negative - 1999(110) ++++ mg/dL [facility] Interpretation and review of laboratory results Abnormal [facility] re Ketones, UA Negative Negative - 160(16) ++++ mg/dL [facility] Leukocytes, UA Trace Negative - 500+++ Virgie/mcL [facility] Healthcare Nitrite, UA Negative Negative - Positive [facility] pH, UA 6.5 5 - 9 [facility] Healthcar e Protein, UA Negative Negative - 1999(20) ++++ mg/dL [facility] Healthcare Spec Grav, UA 1.025 1 - 1.03 [facility] care Urobilinogen, UA 0.2 0.2 - 12 mg/dL [facility] AFP, SERUM, OPEN SPINA BIFID Aon 12-11-2023 AFP MOM 0.79 . [facility] AFP VALUE 34.7 ng/mL . [facility] Healthcar e COMMENT: Comment . [facility] Health[facility] e Comment on above: Treva Gong , Ph.D., [facility] Director References: Available Upon Request. Multiples Of Median Cutoffs For AFP Elevations Banuelos 2.5 Black 2.8 IDD 2.0 Twins 4.5 Abbreviation Definitions IDD - Insulin Dep Diabetes OSBR - Open Spina Bifida Risk For further inquiries contact [facility] at [phone]. This test was developed and its performance characteristics determined by [facility]. It has not been cleared or approved by the Food and Drug Administration. Performed at: [facility] [address] [facility], [place], [place] [id number] Process Inspector: Maira Jones [facility], Phone: [phone] GEST. AGE ON COLLECTION DATE 19.3 . weeks [facility] GESTAT. AGE BASED ON LMP . [facility] Comment on above: Recalculations are n ot recommended when gestational dating by LMP and ultrasound are within 10 days. INSULIN DEP DIABETES No . [facility] INTERPRETATION Comment . [facility] Comment on above: Interpretation: [...] Customer Services to discuss available options. The [place] [employer] recommends amniocentesis be offered to women age 35 and older. [age] [facility] MULTIPLE GESTATION No . [facility] H [facility] [address] . [facility] Rosa hurd RACE . [facility] [email or web address] RESULTS Report . [facility] [email or web address] TEST RESULTS: Negative . [facility] WEIGHT 188 . lbs [facility] [email or web address] N N LMP [id number] 16 N 1 Y 188 N N N N N White/ [facility] [email or web address] IGP,APTIMA HPV,AGE GDLNon AGE GDLN ACOG TESTING Note . [facility] Comment on above: TESTS RESULT FLAG UN ITS REF RANGE LAB Clinician Provided Cytology Information Source.............Cervix No. of containers..01 ThinPrep Vial Age Zahida HURLEY Madonna... FLAG LEGEND: L-Low Normal,H-High Normal,LL-Alert Low,HH-Alert High <-Panic Low,>-Panic High,A-Abnormal,AA-Critical Abnormal Performed at: 01 =G [facility] [address] Tierra Morales MD, IGP, RFX APTIMA HPV ASCU Note . [facility] Comment on above: TESTS RESULT FLAG UN ITS REF RANGE LAB DIAGNOSIS: 02 NEGATIVE FOR INTRAEPITHELIAL LESION OR MALIGNANCY. Specimen adequacy: 02 Satisfactory for evaluation. No endocervical component is identified. Performed by: 02 Francesca Blanc, Managed Care Specialist ([facility]) . 02 Note: Note 02 The Pap [...] <-Panic Low,>-Panic High,A-Abnormal,AA-Critical Abnormal Performed at: [address] [address] Tierra Morales MD, Performed at: =G - [facility] [id number] Process Inspector: Tierra Morales MD, Phone: [phone] Performed at: [facility] [id number] Process Inspector: Tierra Morales MD, Phone: [phone] SPATULA-ALONE CERVIX [facility] e Urinalysis macro (dipstick) panel (U)on 11-22-2023 Bilirubin, UA Negative Negative - 4(70) +++ mg/dL [facility] Blood, UA Negative Negative - 50 Neno/mcL [facility] Clarity, UA Clear [facility] Healthil re Color, UA Yellow [facility] [email or web address] Glucose, UA Negative Negative - 1999(110) ++++ mg/dL [facility] Interpretation and review of laboratory results Normal [facility] Healthca re Ketones, UA Negative Negative - 160(16) ++++ mg/dL [facility] Leukocytes, UA Negative Negative - 500+++ Virgie/mcL [facility] Nitrite, UA Negative Negative - Positive [facility] pH, UA 6.5 5 - 9 [facility] [email or web address] Protein, UA Negative Negative - 1999(20) ++++ mg/dL [facility] Spec Grav, UA 1.025 1 - 1.03 [facility] Urobilinogen, UA 1.0 0.2 - 12 mg/dL [facility] Health[facility] e XR wrist LT min 3V*on 2022 XR wrist LT min 3V* [facility] [address] [place] [address] XRay Report Signed Patient: Nazia Harper MR#: [id number] : 1995 Acct:[id number] Age/Sex: 26 / F ADM Date: 05/11/22 Loc: [facility] Room: Type: [facility] Attending Dr: Dee Buchanan MD Copies [...] D.O.05/11/2022 12:18 PM Dictation Location: [place] [address] Transcribed By: [facility] 05/11/22 1218 Dictated By: Tan Travis Jr, DO 05/11/22 1217 Signed By: 05/11/22 1218 Normal [facility] XR wrist LT min 3V* [facility] [employer] Other XR wrist LT min 3V* [facility] [employer] Other XR wrist LT min 3V* [address] [facility] [employer] Other XR wrist LT min 3V* [place] [address] [facility] [employer] Other XR wrist LT min 3V* XRay Report [employer] Other XR wrist LT min 3V* Signed [employer] Other XR wrist LT min 3V* Patient: Nazia Harper MR#: [id number] [facility] [employer] Other XR wrist LT min 3V* 67 [employer] Other XR wrist LT min 3V* : 1995 Acct:[id number] [employer] Other XR wrist LT min 3V* Age/Sex: 26 / F ADM Date: 05/11/22 [employer] Other XR wrist LT min 3V* Loc: [facility] Room: Type: REG CLI [employer] Other XR wrist LT min 3V* Attending Dr: Dee Buchanan MD [employer] Other XR wrist LT min 3V* Copies to: Dee Buchanan MD [employer] Other XR wrist LT min 3V* Ordering Provider: Dee Buchanan MD [employer] Other XR wrist LT min 3V* Date of Service: 05/11/22 [employer] Other XR wrist LT min 3V* XR/XR wrist LT min 3V*: PAIN [employer] Other XR wrist LT min 3V* LEFT WRIST - 4 views [employer] Other XR wrist LT min 3V* CLINICAL HISTORY: Ganglion cyst posterior aspect at the level of the carpals. [employer] Other XR wrist LT min 3V* COMPARISON: None [employer] Other XR wrist LT min 3V* FINDINGS: [employer] Other XR wrist LT min 3V* No focal soft tissue abnormality is noted. No acute bony process is seen. Carpal bones appear [employer] Other XR wrist LT min 3V* unremarkable. [employer] Other XR wrist LT min 3V* XR/XR wrist LT min 3V* [employer] Other XR wrist LT min 3V* IMPRESSION: [employer] Other XR wrist LT min 3V* NO ACUTE BONY PROCESS. [employer] Other XR wrist LT min 3V* Impression dictated by: Tan Travis Jr., DJuanisOJuanis05/11/2022 12:18 PM [employer] Other XR wrist LT min 3V* Dictation Location: [place] [address] [employer] Other XR wrist LT min 3V* Transcribed By: PWS 05/11/22 1218 [employer] Other XR wrist LT min 3V* Dictated By: Tan Travis Jr DO 05/11/22 [facility] [employer] Other XR wrist LT min 3V* Signed By: [employer] Other XR wrist LT min 3V* 05/11/22 [facility] [employer] Other PAP ACOG PANEL 2: 21 to 29on 08-15-2021 . . Normal [facility] Comment on above: Result Comment: Perf ormed at: BA Performed By: #### [id number] #### [facility] [address] [place] [address] Dr. Alek Fu Age Gdln ACOG Testing Normal [facility] Comment on above: Performed By: #### [id number] #### [facility] [address] [place] [address] [address] Alek Fu DIAGNOSIS: Comment Normal [facility] Comment on above: Result Comment: NEGA TIVE FOR INTRAEPITHELIAL LESION OR MALIGNANCY. Performed at: [facility] Performed By: #### [id number] #### [facility] [address] [place] [address] Dr. Alek Fu Methodology: Comment [facility] Comment on above: Result Comment: This liquid based ThinPrep(R) pap test was screened with the use of an image guided system. Performed at: WB Performed By: #### [id number] #### [facility] [address] [place] [address] Dr. Alek Fu Note: Comment Normal [facility] Comment on above: Result Comment: The Pap smear is a screening test designed to aid in the detection of premalignant and malignant conditions of the uterine cervix. It is not a diagnostic procedure and should not be used as the sole means of detecting cervical cancer. Both false-positive and false-negative reports do occur. . Performed at: WB Performed By: #### [id number] #### [facility] [address] [place] [address] Dr. Alek Fu Performed by: Comment Normal [facility] Comment on above: Result Comment: Elen Carrillo, Managed Care Specialist (ASCP) Performed at: BA Performed By: #### [id number] #### [facility] [address] [place] [address] Dr. Alek Fu Reflex Criteria: Comment Normal [facility] [facility] Comment on above: Result Comment: The HPV DNA reflex criteria were not met with this specimen result therefore, no HPV testing was performed. . Performed at: BA Performed By: #### [id number] #### [facility] [address] [place] [address] Dr. Alek Fu Specimen adequacy: Comment Normal [facility] [place] Comment on above: Result Comment: Sati sfactory for evaluation. Endocervical and/or squamous metaplastic cells (endocervical component) are present. Performed at: BA Performed By: #### [id number] #### [facility] [address] [place] [address] Dr. Alek Fu XR KNEE SABRINA 4V or >on 2021 XR KNEE SABRINA 4V or > EXAMINATION: XR KNEE ASBRINA 4V or > HISTORY: Knee pain COMPARISON: [...] ZURI [place] Date: 2021-07-17 17:09 Normal [facility] CBC AUTO DIFFon 12-08-2020 BASO # 0.0 103/ul Normal 0.0-0.1 [facility] Comment on above: Performed By: #### C BC #### [facility] [address] [place] [address] Dr. Alek Fu Basophils/100 WBC (Bld) 0.2 % Normal 0.2-2.0 [facility] Comment on above: Performed By: #### C BC #### [facility] [address] [place] [address] Dr. Alek Fu EO # 0.0 103/ul Normal 0.0-0.7 [facility] Comment on above: Performed By: #### C BC #### [facility] [address] [place] [address] Dr. Alek Fu Eosinophils/100 WBC (Bld) 0.6 % Critically low 0.9-7.0 [facility] Comment on above: Performed By: #### C BC #### [facility] [address] [place] [address] Dr. Alek Fu Erythrocyte distribution width (RBC) [Ratio] 12.4 % Normal 11.0-15.0 [facility] Comment on above: Performed By: #### C BC #### [facility] [address] [place] [address] Dr. Alek Fu Hematocrit (Bld) [Volume fraction] 44.3 % Normal 36.0-48.0 [facility] Comment on above: Performed By: #### C BC #### [facility] [address] [place] [address] Dr. Alek Fu Hemoglobin (Bld) [Mass/Vol] 15.4 g/dL Normal 12.0-16.0 [facility] Comment on above: Performed By: #### C BC #### [facility] [address] [place] [address] Dr. Alek Fu IG # 0.04 10e3/ul Critically high 0.00-0.03 [facility] Comment on above: Performed By: #### C BC #### [facility] [address] [place] [address] Dr. Alek Fu IG % 0.6 % Critically high 0.0-0.5 [facility] Comment on above: Performed By: #### C BC #### [facility] [address] [place] [address] Dr. Alek Fu LYMPH # 3.2 103/ul Normal 1.2-3.8 [facility] Comment on above: Performed By: #### C BC #### [facility] [address] [place] [address] Dr. Alek Fu Lymphocytes/100 WBC (Bld) 50.2 % Normal 20.5-60.0 [facility] Comment on above: Performed By: #### C BC #### [facility] [address] [place] [address] Dr. Alek Fu MANUAL DIFF REQ NO Normal [facility] Comment on above: Performed By: #### C BC #### [facility] [address] [place] [address] Dr. Alek Fu MCH (RBC) [Entitic mass] 28.7 pg Normal 26.7-34.0 [facility] Comment on above: Performed By: #### C BC #### [facility] [address] [place] [address] Dr. Alek Fu MCHC (RBC) [Mass/Vol] 34.8 g/dL Normal 29.9-35.2 [facility] Comment on above: Performed By: #### C BC #### [facility] [address] [place] [address] Dr. Alek Fu MCV (RBC) [Entitic vol] 82.5 fL Normal 81.0-99.0 [facility] Comment on above: Performed By: #### C BC #### [facility] [address] [place] [address] Dr. Alek Fu MONO # 0.6 103/ul Normal 0.3-0.8 [facility] Comment on above: Performed By: #### C BC #### [facility] [address] [place] [address] Dr. Alek Fu Monocytes/100 WBC (Bld) 10.0 % Normal 1.7-12.0 [facility] Comment on above: Performed By: #### C BC #### [facility] [address] [place] [address] Dr. Alek Fu NEUT # 2.4 103/ul Normal 1.4-6.5 [facility] Comment on above: Performed By: #### C BC #### [facility] [address] [place] [address] Dr. Alek Fu Neutrophils/100 WBC (Bld) 38.4 % Critically low 43.0-75.0 [facility] Comment on above: Performed By: #### C BC #### [facility] [address] [place] [address] Dr. Alek Fu Platelet mean volume (Bld) [Entitic vol] 9.9 fL Normal 9.5-13.5 [facility] Comment on above: Performed By: #### C BC #### [facility] [address] [place] [address] Dr. Alek Fu PLT 206 103/ul Normal 150-450 [facility] Comment on above: Performed By: #### C BC #### [facility] [address] [place] [address] Dr. Alek Fu RBC 5.37 106/ul Normal 4.20-5.40 [facility] Comment on above: Performed By: #### C BC #### [facility] [address] [place] [address] Dr. Alek Fu WBC 6.3 103/ul Normal 4.0-11.0 [facility] Comment on above: Performed By: #### C BC #### [facility] [address] [place] [address] Dr. Alek Fu ER URINE PROFILEon 1 Bilirubin Ql (U) Negative Normal NEGATIVE [facility] Comment on above: Performed By: #### E RUR #### [facility] [address] [place] [address] Dr. Alek Fu Clarity (U) CLEAR Normal CLEAR [facility] Comment on above: Performed By: #### E RUR #### [facility] [address] [place] [address] Dr. Alek Fu Color (U) YELLOW Normal YELLOW [facility] Comment on above: Performed By: #### E RUR #### [facility] [address] [place] [address] Dr. Alek Fu ERUAHD A micrscopic examination will be performed if indicated. Normal [facility] Comment on above: Performed By: #### E RUR #### [facility] [address] [place] [address] Dr. Alek Fu Glucose Ql (U) Negative Normal NEGATIVE [facility] Comment on above: Performed By: #### E RUR #### [facility] [address] [place] [address] Dr. Alek Fu Hemoglobin Ql (U) TRACE-INTACT Abnormal NEGATIVE [facility] Comment on above: Performed By: #### E RUR #### [facility] [address] [place] [address] Dr. Alek Fu Ketones Ql (U) TRACE Abnormal NEGATIVE [facility] Comment on above: Performed By: #### E RUR #### [facility] [address] [place] [address] Dr. Alek Fu LEUKOCYTES Negative Normal NEGATIVE [facility] Comment on above: Performed By: #### E RUR #### [facility] [address] [place] [address] Dr. Alek Fu Nitrite Ql (U) Negative Normal NEGATIVE [facility] Comment on above: Performed By: #### E RUR #### [facility] [address] [place] [address] Dr. Alek Fu pH (U) 6.0 [pH] Normal 5-9 [facility] Comment on above: Performed By: #### E RUR #### [facility] [address] [place] [address] Dr. Alek Fu SPEC GRAVITY 1.015 Normal 1.005-<=1.025 [facility] Comment on above: Performed By: #### E RUR #### [facility] [address] [address] [address] Alek Fu UA PROTEIN Negative Normal NEGATIVE/ TRACE [facility] Comment on above: Performed By: #### E RUR #### [facility] [address] [address] [address] Alek Fu UR MICRO IND NOT INDICATED Normal [facility] Comment on above: Performed By: #### E RUR #### [facility] [address] [place] [address] Dr. Alek Fu Urobilinogen Qn (U) 0.2 {Roya'U}/dL Normal 0.2 - 1.0 [facility] Comment on above: Performed By: #### E RUR #### [facility] [address] [place] [address] Dr. Alek Fu URon 12-08-2020 , QUAL Negative Normal NEGATIVE [facility] Comment on above: Performed By: #### P REGU #### [facility] [address] [place] [address] Dr. Alek Fu PROF CHEM 8 (BAS METB)on Anion gap [Moles/Vol] 13.0 mmol/L Normal [facility] Comment on above: Performed By: #### B MP #### [facility] [address] [place] [address] Dr. Alek Fu Calcium [Mass/Vol] 9.0 mg/dL Normal 8.4-10.2 [facility] Comment on above: Performed By: #### B MP #### [facility] [address] [place] [address] Dr. Alek Fu Chloride [Moles/Vol] 103 mmol/L Normal 98-107 [facility] Comment on above: Performed By: #### B MP #### [facility] [address] [place] [address] Dr. Alek Fu CO2 [Moles/Vol] 25.0 mmol/L Normal 22.0-30.0 [facility] Comment on above: Performed By: #### B MP #### [facility] [address] [address] [address] Alek Fu Creatinine [Mass/Vol] 0.96 mg/dL Normal 0.52-1.04 [facility] Comment on above: Performed By: #### B MP #### [facility] [address] [address] [address] Alek Fu EGFR-AF [place]IZ[place] >60 Normal >=60 [facility] Comment on above: Performed By: #### B MP #### [facility] [address] [address] [address] Alek Fu EGFR-NON AF CITIZEN OF [place] >60 Normal >=60 [facility] Comment on above: Performed By: #### B MP #### [facility] [address] [address] [address] Alek Fu Glucose [Mass/Vol] 99 mg/dL Normal 74-106 [facility] [place] Comment on above: Performed By: #### B MP #### [facility] [address] [address] [address] Alek Fu Potassium [Moles/Vol] 3.0 mmol/L Critically low 3.4-5.0 [facility] Comment on above: Performed By: #### B MP #### [facility] [address] [address] [address] Alek Fu Sodium [Moles/Vol] 138 mmol/L Normal 137-145 The [facility] Comment on above: Performed By: #### B MP #### [facility] [address] [address] [address] Alek Fu Urea nitrogen [Mass/Vol] 11.0 mg/dL Normal 7.0-17.0 [facility] Comment on above: Performed By: #### B MP #### [facility] [address] [address] [address] Alek Fu Urea nitrogen/Creatinin e [Mass ratio] 11.5 mg/mg Normal [facility] Comment on above: Performed By: #### B MP #### [facility] [address] [address] [address] Alek Fu Covid-19 PCR (CVDTB)on 11-19 [...] for this test is supported by the [place] of Health and Human Service's (HHS's) declaration [...] longer be used). Performed By: #### C [facility] #### [facility] [address] [address] [address] Alek Fu Vital Signs Date Time Vital Sign Value Performing Clinician Faci lity 04-24-2024 10:55-0500 Body mass index (BMI) [Ratio] 40.02 kg/m2 Anai Jennyfer DO Work Phone: [facility] 04-24-2024 10:55-0500 Body weight 99.25 kg Anai Jennyfer DO Work Phone: [facility] 04-24-2024 10:55-0500 Diastolic blood pressure 74 mm[Hg] Anai Jennyfer DO Work Phone: [facility] 04-24-2024 10:55-0500 Systolic blood pressure 122 mm[Hg] Anai Jennyfer DO Work Phone: [facility] 04-17-2024 11:18-0500 Body mass index (BMI) [Ratio] 39.51 kg/m2 Anai Jennyfer DO Work Phone: [facility] 04-17-2024 11:18-0500 Body weight 97.98 kg Anai Jennyfer DO Work Phone: [facility] 04-17-2024 11:18-0500 Diastolic blood pressure 78 mm[Hg] Anai Jennyfer DO Work Phone: [facility] 04-17-2024 11:18-0500 Systolic blood pressure 124 mm[Hg] Anai Jennyfer DO Work Phone: [facility] 04-10-2024 10:17-0500 Body mass index (BMI) [Ratio] 39.53 kg/m2 Amnada Juan PA Work Phone: [facility] 04-10-2024 10:17-0500 Body weight 98.03 kg Amanda Goodells PA Work Phone: [facility] 04-10-2024 10:17-0500 Diastolic blood pressure 76 mm[Hg] Amanda Juan PA Work Phone: [facility] 04-10-2024 10:17-0500 Systolic blood pressure 116 mm[Hg] Amanda Juan PA Work Phone: [facility] 03-19-2024 10:38-0500 Body mass index (BMI) [Ratio] 37.68 kg/m2 Amanda Goodells PA Work Phone: [facility] 03-19-2024 10:38-0500 Body weight 93.44 kg Amanda Goodells PA Work Phone: [facility] 03-19-2024 10:38-0500 Diastolic blood pressure 76 mm[Hg] Amanda Juan PA Work Phone: [facility] 03-19-2024 10:38-0500 Systolic blood pressure 122 mm[Hg] Amanda Goodells PA Work Phone: [facility] 03-05-2024 09:47-0500 Body mass index (BMI) [Ratio] 37.93 kg/m2 Amanda Juan PA Work Phone: [facility] 03-05-2024 09:47-0500 Body weight 94.08 kg Amanda Goodells PA Work Phone: [facility] 03-05-2024 09:47-0500 Diastolic blood pressure 74 mm[Hg] Amanda Goodells PA Work Phone: [facility] 03-05-2024 09:47-0500 Systolic blood pressure 110 mm[Hg] Amanda Juan PA Work Phone: [facility] 03-01-2024 11:46-0500 Body mass index (BMI) [Ratio] 37.57 kg/m2 Amanda Goodells PA Work Phone: [facility] 03-01-2024 11:46-0500 Body weight 93.17 kg Amanda Goodells PA Work Phone: [facility] 03-01-2024 11:46-0500 Diastolic blood pressure 90 mm[Hg] Amanda Juan PA Work Phone: [facility] 03-01-2024 11:46-0500 Systolic blood pressure 130 mm[Hg] Amanda Goodells PA Work Phone: [facility] 02-20-2024 10:07-0500 Body mass index (BMI) [Ratio] 37.68 kg/m2 Anai Jennyfer DO Work Phone: [facility] 02-20-2024 10:07-0500 Body weight 93.44 kg Anai Jennyfer DO Work Phone: [facility] 02-20-2024 10:07-0500 Diastolic blood pressure 80 mm[Hg] Anai Jennyfer DO Work Phone: [facility] 02-20-2024 10:07-0500 Systolic blood pressure 122 mm[Hg] Anai Jennyfer DO Work Phone: [facility] 01-17-2024 10:15-0400 Body mass index (BMI) [Ratio] 36 kg/m2 Amanda Goodells PA Work Phone: [facility] 01-17-2024 10:15-0400 Body weight 89.27 kg Amanda Juan PA Work Phone: [facility] 01-17-2024 10:15-0400 Diastolic blood pressure 70 mm[Hg] Amanda Juan PA Work Phone: [facility] 01-17-2024 10:15-0400 Systolic blood pressure 122 mm[Hg] Amanda Juan PA Work Phone: [facility] 12-20-2023 09:58-0400 Body mass index (BMI) [Ratio] 34.93 kg/m2 Amanda Goodells PA Work Phone: [facility] 12-20-2023 09:58-0400 Body weight 86.64 kg Amanda Juan PA Work Phone: [facility] 12-20-2023 09:58-0400 Diastolic blood pressure 76 mm[Hg] Amanda Juan PA Work Phone: [facility] 12-20-2023 09:58-0400 Systolic blood pressure 124 mm[Hg] Amanda Goodells PA Work Phone: [facility] 11-23-2023 09:47-0400 Body height 157.5 cm Lorene Hemmer PA Work Phone: [facility] 11-23-2023 09:47-0400 Body mass index (BMI) [Ratio] 34.39 kg/m2 Lorene Hemmer PA Work Phone: [facility] 11-23-2023 09:47-0400 Body weight 85.28 kg Lorene Hemmer PA Work Phone: [facility] 11-23-2023 09:47-0400 Diastolic blood pressure 86 mm[Hg] Lorene Hemmer PA Work Phone: [facility] 11-23-2023 09:47-0400 Heart rate 81 /min Lorene Hemmer PA Work Phone: [facility] 11-23-2023 09:47-0400 Respiratory rate 16 /min Lorene Hemmer PA Work Phone: [facility] 11-23-2023 09:47-0400 SaO2% (BldA) [Mass fraction] 98 % Lorene Hemmer PA Work Phone: [facility] 11-23-2023 09:47-0400 Systolic blood pressure 124 mm[Hg] Lorene Plasencia PA Work Phone: [facility] 11-22-2023 09:29-0400 Body mass index (BMI) [Ratio] 34.41 kg/m2 Anai Jennyfer DO Work Phone: [facility] 11-22-2023 09:29-0400 Body weight 85.33 kg Anai Jennyfer DO Work Phone: [facility] 11-22-2023 09:29-0400 Diastolic blood pressure 74 mm[Hg] Anai Jennyfer DO Work Phone: [facility] 11-22-2023 09:29-0400 Systolic blood pressure 122 mm[Hg] Anai Jennyfer DO Work Phone: [facility] Encounters Encounter Date Encounter Type Care Provider Facility Start: 04-30-2024 End: 04-30-2024 Clinisync Result Encounter Generic External Data Provider [facility] External Department Unsolicited Start: 04-30-2024 End: 04-30-2024 Clinisync Result Encounter Generic External Data Provider [facility] External Department Unsolicited Start: 04-24-2024 End: 04-24-2024 Bamboo flowsheet Anai Jennyfer DO Work Phone: [facility] Start: 04-24-2024 End: 04-24-2024 Bamboo flowsheet Anai Jennyfer DO Work Phone: [facility] Start: 04-24-2024 End: 04-24-2024 flow sheet Anai Jennyfer DO Work Phone: [facility] Comment on above: Third trimester preg gregor; 38 weeks gestation of ; Gestational hypertension, antepartum Start: 04-24-2024 End: 04-24-2024 ambulatory ANAI JENNYFER [...] trimester Start: 04-03-2024 End: 04-03-2024 ambulatory ANAI LIMAO Not Available Start: 03-19-2024 End: 03-19-2024 Bamboo [...] Start: 12-20-2023 End: 12-20-2023 Bamboo flowsheet Amanda Goodells PA Work Phone: [facility] Start: 12-20-2023 End: 12-20-2023 Bamboo flowsheet Amanda ROMAN Work Phone: [facility] Start: 12-20-2023 End: 12-20-2023 flow sheet Amanda Martinez PA Work Phone: [facility] Comment on above: Encounter for follow -up ultrasound of anatomy; Second trimester ; 20 weeks gestation of Start: 12-20-2023 End: 12-20-2023 ambulatory AMANDA PHILLIPSEY Not Available Start: 12-09-2023 End: 12-11-2023 Clinisync [...] ; Vaginal discharge; STD exposure; Mood disorder ([facility] Start: 10-24-2023 End: 10-24-2023 ambulatory ANAIMo LIMAO Not Available Start: 10-11-2023 End: 10-11-2023 ambulatory [...] Orthopedics Start: 05-11-2022 End: 05-11-2022 ambulatory Dee Buchanna Facility:[facility] Start: 05-11-2022 End: 05-11-2022 ambulatory MD Dee Buchanan Work Phone: [facility] Work Phone: Start: 05-11-2022 End: 05-11-2022 Patient encounter procedure MD Dee Buchanan Work Phone: [facility] Start: 08-10-2021 End: 08-10-[address] ANAI BURGER Facility:[facility] Start: 07-17-2021 End: 07-18-[address] LORENE PLASENCIA Facility:[facility] Start: 12-08-2020 End: 12-08-[address] VERITO LAMB Facility:[facility] Start: 12-03-2020 End: 12-03-[address] VERITO LAMB Facility:[facility] Procedures Date Procedure Procedure Detail Performing Clinician Start: 04-30-2024 OB BPP W NON-STRESS Generic External Data Provider Start: 04-24-2024 Urnls dip stick/tabl et rgnt non-auto w/o micrscp Anai Jennyfer DO Work Phone: Start: 04-21-2024 OB BPP W NON-STRESS Generic External Data [...] AM EST Routine [facility] [address] [place] [id number] Anai Burger, DO [address] [place] [address] [facility] Start: 04-10-2024 End: 04-10-2024 [...] AM EST Routine [facility] [address] [place] [address] Anai Burger, DO [address] [place] [address] Arrived [facility] Comment on above: Arrived Start: 03-19-2024 End: 03-19-2024 Patient encounter procedure [facility] Comment on above: Arrived Start: 03-05-2024 End: 03-05-2024 Patient encounter procedure [facility] Comment on above: Arrived Start: 03-05-2024 End: 03-05-2024 Professional / ancillary services management 03/05/2024 9:00 AM EST Ancillary Procedure [facility] [address] [place] [address] [facility] Start: 03-01-2024 End: 03-01-2025 Alanine aminotransferase [Enzymatic activity/volume] in Serum or Plasma ALT Lab Routine induced hypertension, antepartum Expected: 03/01/2024 (Approximate), Expires: 03/01/2025 [facility] Comment on above: Expected: 03/01/2024 (Approximate), Expires: 03/01/2025 Start: 03-01-2024 End: 03-01-2025 Aspartate aminotransferase [Enzymatic activity/volume] in Serum or Plasma AST Lab Routine induced hypertension, antepartum Expected: 03/01/2024 (Approximate), Expires: 03/01/2025 [facility] Comment on above: Expected: 03/01/2024 [...] hypertension, antepartum Expected: 03/01/2024 (Approximate), Expires: 03/01/2025 [facility] Work Phone: Comment on above: Expected: 03/01/2024 (Approximate), Expires: 03/01/2025 Start: 03-01-2024 End: 03-01-2025 Lactate dehydrogenase [Enzymatic activity/volume] in Serum or Plasma by Lactate to pyruvate reaction Lactate dehydrogenase Lab Routine induced hypertension, antepartum Expected: 03/01/2024, Expires: 03/01/2025 [facility] Comment on above: Expected: 03/01/2024 , Expires: 03/01/2025 Start: 03-01-2024 End: 03-01-2025 Protein, urine, 24 hour Protein, urine, 24 hour Lab Routine induced hypertension, antepartum Expected: 03/01/2024 (Approximate), Expires: 03/01/2025 [facility] Comment on above: Expected: 03/01/2024 (Approximate), Expires: 03/01/2025 Start: 03-01-2024 End: 03-01-2025 Pt and ptt Pt and ptt Lab Routine induced hypertension, antepartum Expected: 03/01/2024, Expires: 03/01/2025 [facility] Comment on above: Expected: 03/01/2024 , Expires: 03/01/2025 Start: 03-01-2024 End: 03-01-2025 Urate [Mass/volume] in Serum or Plasma Uric acid Lab Routine induced hypertension, antepartum Expected: 03/01/2024 (Approximate), Expires: 03/01/2025 [facility] Comment on above: Expected: 03/01/2024 (Approximate), Expires: 03/01/2025 Start: 03-01-2024 End: 03-01-2025 Urea nitrogen [Mass/volume] in Serum or Plasma BUN Lab Routine induced hypertension, antepartum Expected: 03/01/2024, Expires: 03/01/2025 [facility] Comment on above: Expected: 03/01/2024 , Expires: 03/01/2025 Start: 03-01-2024 End: 03-01-2025 US biophysical profile w non stress test US biophysical profile w non stress test Imaging Routine Hypertension affecting in third trimester Lightheadedness Dizziness Expected: 03/01/2024 (Approximate), Expires: 03/01/2025 [facility] Comment on above: Expected: 03/01/2024 (Approximate), [...] of anatomy Expected: 01/20/2024 (Approximate), Expires: 12/19/2024 [facility] Work Phone: Comment on above: Expected: 01/20/2024 (Approximate), Expires: 12/19/2024 Start: 01-17-2024 End: 01-16-2025 CBC panel - Blood by Automated count CBC Lab Routine Diabetes mellitus screening Expected: 01/17/2024 (Approximate), Expires: 01/16/2025 [facility] Work Phone: Comment on above: Expected: 01/17/2024 (Approximate), Expires: 01/16/2025 Start: 01-17-2024 End: 01-16-2025 Measurement of glucose 1 hour after glucose challenge for glucose tolerance test Glucose tolerance, 1 hour Lab Routine Diabetes mellitus screening Expected: 01/17/2024 (Approximate), Expires: 01/16/2025 [facility] Comment on above: Expected: 01/17/2024 (Approximate), Expires: 01/16/2025 Start: 01-17-2024 End: 01-17-2024 Patient encounter procedure [facility] Comment on above: Arrived Start: 01-17-2024 End: 01-17-2024 Professional / ancillary services management 01/17/2024 9:30 AM EDT Ancillary Procedure [facility] [address] [place] [address] [facility] Start: 12-20-2023 End: 12-20-2023 Patient encounter procedure [facility] Comment on above: Arrived Start: 12-14-2023 End: 12-14-2023 Professional / ancillary services management 12/14/2023 9:00 AM EDT Ancillary Procedure [facility] [address] [place] [id number] [facility] Start: 11-22-2023 End: 05-21-2024 Alpha fetoprotein, maternal Alpha fetoprotein, maternal Lab Routine Second trimester Expected: 11/22/2023 (Approximate), Expires: 05/21/2024 [facility] Comment on above: Expected: 11/22/2023 (Approximate), Expires: 05/21/2024 Start: 11-22-2023 End: 11-21-2024 US for US OB ANATOMY SINGLE W US OB CERVICAL LENGTH Imaging Routine Screening, , for anatomic survey Expected: 11/22/2023 (Approximate), Expires: 11/21/2024 [facility] Comment on above: Expected: 11/22/2023 (Approximate), Expires: 11/21/2024 Start: 11-20-2023 Influenza vaccination Influenza Vacc ine (#1) [facility] CHLAMYDIA TRACHOMATI S (GENITO/STI) CHLAMYDIA TRACHOMATIS (GENITO/STI) Lab Routine STD exposure Ordered: 11/22/2023 [facility] Comment on above: Ordered: 11/22/2023 Cytology Cervical or vaginal smear or scraping study Pap Smear Pathology and Cytology Routine Well woman exam with routine gynecological exam Ordered: 11/22/2023 [facility] Comment on above: Ordered: 11/22/2023 Neisseria gonorrhoea e DNA [Presence] in Unspecified specimen by SANTANA with probe detection Neisseria gonorrhea DNA probe, direct Lab Routine STD exposure Ordered: 11/22/2023 [facility] Comment on above: Ordered: 11/22/2023 SURESWAB(R) ADVANCED VAGINITIS PLUS, TMA SURESWAB(R) ADVANCED VAGINITIS PLUS, TMA Pathology and Cytology Routine Vaginal discharge Ordered: 11/22/2023 [facility] Work Phone: Comment on above: Ordered: 11/22/2023 Immunizations Immunization Date Immunization Notes Care Provider Fa lainey 12-09-2019 diphtheria, tetanus toxoids and pertussis vaccine Lorene Hemmer PA Work Phone: [facility] 12-09-2019 measles, mumps and rubella virus vaccine Lorene Hemmer PA Work Phone: [facility] 05-30-2000 diphtheria, tetanus toxoids and acellular pertussis vaccine, unspecified formulation Lorene Hemmer PA Work Phone: [facility] Work Phone: 05-30-2000 measles, mumps and rubella virus vaccine Lorene Hemmer PA Work Phone: [facility] 05-30-2000 poliovirus vaccine, inactivated Lorene Hemmer PA Work Phone: [facility] 03-30-2000 influenza, seasonal, injectable Lorene Hemmer PA Work Phone: [facility] 03-30-2000 influenza virus vaccine, unspecified formulation Lorene Hemmer PA Work Phone: [facility] 09-12-1998 haemophilus influenz ae type b vaccine, conjugate unspecified formulation Lorene Hemmer PA Work Phone: [facility] 11-28-1996 diphtheria, tetanus toxoids and acellular pertussis vaccine, unspecified formulation Lorene Hemmer PA Work Phone: [facility] 11-28-1996 haemophilus influenz ae type b vaccine, conjugate unspecified formulation Lorene Hemmer PA Work Phone: [facility] 11-28-1996 measles, mumps and rubella virus vaccine Lorene Hemmer PA Work Phone: [facility] 10-27-1996 trivalent poliovirus vaccine, live, oral Lorene Hemmer PA Work Phone: [facility] 01-31-1996 DTP-Haemophilus influenzae type b conjugate vaccine Lorene Hemmer PA Work Phone: [facility] 01-31-1996 hepatitis B vaccine, pediatric or pediatric/adolescent dosage Lorene Hemmer PA Work Phone: [facility] 01-31-1996 trivalent poliovirus vaccine, live, oral Lorene Hemmer PA Work Phone: [facility] 1995 DTP-Haemophilus influenzae type b conjugate vaccine Lorene Hemmer PA Work Phone: [facility] 1995 trivalent poliovirus vaccine, live, oral Lorene Hemmer PA Work Phone: [facility] 1995 DTP-Haemophilus influenzae type b conjugate vaccine Lorene Hemmer PA Work Phone: [facility] 1995 hepatitis B vaccine, pediatric or pediatric/adolescent dosage Lorene Hemmer PA Work Phone: [facility] 1995 haemophilus influenz ae type b vaccine, conjugate unspecified formulation Lorene Hemmer PA Work Phone: [facility] 1995 hepatitis B vaccine, pediatric or pediatric/adolescent dosage Lorene Hemmer PA Work Phone: [facility] Payers Date Payer Category Payer [facility] O (unspecified) [id number] 2023 Private Health Insurance [id number] 2022 Private Health Insurance [id number] 2022 Self-pay 2022 Unknown [id number] 1995 Unknown [id number] 2.16.84 [id number] 1995 Unknown [id number] 2.16.84 0.1.887592.3.579.2.593 1995 Unknown [id number] 2.16.84 0.1.721855.3.579.2.593 1995 Unknown [id number] 2.16.84 0.1.825227.3.579.2.593 1995 Unknown [id number] 2.16.840.1.980143.3.579.2.1258 1995 Unknown [id number] 2.16.840.1.021569.3.579.2.1258 1995 Unknown [id number] 2.16.840.1.460186.3.579.2.1258 1995 Unknown [id number] 2.16.840.1.817700.3.579.2.1258 1995 Unknown [id number] 2.16840.1.148749.3.579.2.1258 1995 Unknown [id number] 2.16840.1.223174.3.579.2.1258 1995 Unknown [id number] 2.16840.1.702111.3.579.2.1258 1995 Unknown [id number] 2.16840.1.958933.3.579.2.1258 1995 Unknown [id number] 2.16840.1.596853.3.579.2.1258 1995 Unknown [id number] 2.16840.1.237808.3.579.2.1258 1995 Unknown [id number] 2.16840.1.853178.3.579.2.1258 1995 Unknown [id number] 2.16840.1.682688.3.579.2.1258 1995 Unknown [id number] 2.16840.1.291432.3.579.2.1258 1995 Unknown [id number] 2.16840.1.022469.3.579.2.1258 1995 Unknown [id number] 2.16840.1.536346.3.579.2.1258 1995 Unknown [id number] 2.16.840.1.103529.3.579.2.1258 1995 Unknown [id number] 2.16840.1.237829.3.579.2.1259 1995 Unknown [id number] 2.16.840.1.286631.3.579.2.1259 1959 Unknown [id number] 1959 Unknown [id number] 1959 Unknown [id number] Unknown [id number] 2.16.840.1.963486.3.579.2.531 Social History Date Type Detail Facility Tobacco smoking stat us VTIS Unknown if ever smoked [facility] Work Phone: Start: 1995 Sex Assigned At Female [facility] Start: 09-08-2023 End: 11-23-2023 Sex Assigned At [facility] Start: 11-24-2022 Tobacco smoking status NHIS Never smoked tobacco [facility] Start: 11-24-2022 Tobacco use and exposure Smokeless tobacco non-user [facility] Start: 11-23-2023 End: 04-24-2024 Alcoholic beverage intake Ex-drinker (finding) [facility] Start: 09-08-2023 End: 11-23-2023 Alcoholic beverage intake [facility] How often do you nee d to have someone help you when you read instructions, pamphlets, or other written material from your doctor or pharmacy [SILS] Never [facility] Do you belong to any clubs or organizations such as denominational groups, unions, fraternal or athletic groups, or [...] Comment Caffeine intake: 1-2 cups per day [facility] Start: 08-10-2023 [facility] Start: 10-18-2022 Gender identity Identifies as female gender (finding) [facility] Start: 10-18-2022 Sexual orientation Heterosexual (finding) [facility] Start: 10-24-2023 End: 11-22-2023 Alcoholic beverage intake Current drinker of alcohol (finding) [facility] Clinical Notes 05-11-2022 to 04-24-2024 Lorene Duran LPN - 04/24/2024 10:20 AM ABEL Stinson - 04/17/2024 10:50 AM ABEL Stinson - 04/10/2024 10:20 AM Graeme Duran LPN - 04/03/2024 10:30 AM ABEL Stinson - 03/05/2024 9:40 AM EST Note Date & Type Note Facility 04-24-2024 History of Presen t illness Narrative Reason [...] 2 (SARS-CoV-2) detected 08/18/2022 Generalized anxiety disorder ([facility]/HCC) 03/23/2023 Resolved Ambulatory Problems Diagnosis Date Noted Allergic rhinitis 08/18/2022 Sinusitis 08/18/2022 Past Medical History: Diagnosis Date Allergies Central auditory processing disorder Chronic ear infection Depression (CMS/HCC) ETD (eustachian tube dysfunction) Miscarriage TMJ (dislocation of temporomandibular joint) HISTORY PAST MEDICAL HISTORY SOCIAL HISTORY Past Medical History: Diagnosis Date Allergies Central auditory processing disorder Chronic ear infection Depression ([facility]) ETD (eustachian tube dysfunction) Ganglion cyst of [...] nursing note reviewed. Exam conducted with a toll relief operator present. Vitals: Estimated body mass index is 40.02 kg/m as calculated from the following: Height as of 24: 5' 2 . Weight as of this encounter: 218 lb 12.8 oz. BP: 122/74 Patient's last menstrual period was 07/27/2023. ASSESSMENT & PLAN ICD-10-CM 1. Third trimester Z34.93 Urine dip 2. 38 weeks gestation of Z3A.38 Urine dip 3. Gestational hypertension, antepartum O13.9 Return OB: Patient presents today for a routine obstetrics appointment. Patient is currently 38w6d . Patient states she is doing well but has complaints of being tired due to current . Patient has verbalizes frequent movement. labor precautions was discussed/given and patient was instructed to perform kick counts three times a day. Discussed possible nuchal cord with pt Pt being induced Tuesday05/01/24 at 0500 with pit. Orders Placed This Encounter Procedures Urine dip Follow Up: Patient is to return to office in 1 week for routine OB appointment. Documented by Lorene Duran LPN on behalf of: Anai Burger DO documented in this encounter [facility] 04-17-2024 History of Presen t illness Narrative [...] Anai Burger DO documented in this encounter [facility] 04-10-2024 History of Presen t illness [...] of: ABEL Carroll documented in this encounter [facility] 04-03-2024 History of Presen t illness [...] nursing note reviewed. Exam conducted with a toll relief operator present. Vitals: Estimated body mass index [...] Anai Burger DO documented in this encounter [facility] 03-19-2024 History of Presen t illness [...] 2 (SARS-CoV-2) detected 08/18/2022 Generalized anxiety disorder ([facility]/HCC) 03/23/2023 Resolved Ambulatory Problems Diagnosis Date Noted Allergic rhinitis 08/18/2022 Sinusitis 08/18/2022 Past Medical History: Diagnosis Date Allergies Central auditory processing disorder Chronic ear infection Depression (CMS/HCC) ETD (eustachian tube dysfunction) Miscarriage TMJ (dislocation of temporomandibular joint) HISTORY PAST MEDICAL HISTORY SOCIAL HISTORY Past Medical History: Diagnosis Date Allergies Central auditory processing disorder Chronic ear infection Depression ([facility]) ETD (eustachian tube dysfunction) Ganglion cyst of [...] of: ABEL Carroll documented in this encounter [facility] 03-05-2024 History of Presen t illness [...] 2 (SARS-CoV-2) detected 08/18/2022 Generalized anxiety disorder ([facility]/HCC) 03/23/2023 Resolved Ambulatory Problems Diagnosis Date Noted Allergic rhinitis 08/18/2022 Sinusitis 08/18/2022 Past Medical History: Diagnosis Date Allergies Central auditory processing disorder Chronic ear infection Depression (CMS/HCC) ETD (eustachian tube dysfunction) Miscarriage TMJ (dislocation of temporomandibular joint) HISTORY PAST MEDICAL HISTORY SOCIAL HISTORY Past Medical History: Diagnosis Date Allergies Central auditory processing disorder Chronic ear infection Depression ([facility]) ETD (eustachian tube dysfunction) Ganglion cyst of [...] week for routine OB appointment. Documented by ABLE Carroll on behalf of: ABEL Carroll documented in this encounter [facility] 03-01-2024 History of Presen t illness [...] of: ABEL Carroll documented in this encounter [facility] 02-20-2024 History of Presen t illness [...] nursing note reviewed. Exam conducted with a toll relief operator present. Vitals: Estimated body mass index [...] Anai Burger DO documented in this encounter [facility] 01-17-2024 History of Presen t illness [...] nursing note reviewed. Exam conducted with a toll relief operator present. Vitals: Estimated body mass index is 36 kg/m as calculated from the following: Height as of 11/22/24: 5' 2 . Weight as of this [...] of: ABEL Carroll documented in this encounter [facility] 12-20-2023 History of Presen t illness [...] of: ABEL Carroll documented in this encounter [facility] 11-25-2023 Telephone encount er Note Understood. [facility] 11-25-2023 Miscellaneous Notes Formattin g of this note might be different from the original. Understood. Nazia called stating her ob just wants her on Effexor instead of buspirone so that's what she'll be on documented in this encounter [facility] 11-25-2023 Telephone encount er Note Nazia called stating her ob just wants her on Effexor instead of buspirone so that's what she'll be on [facility] 11-23-2023 History of Presen t illness [...] Medication Follow Up. documented in this encounter [facility] 11-22-2023 History of Presen t illness [...] nursing note reviewed. Exam conducted with a toll relief operator present. Vitals: Estimated body mass index [...] Anai Burger DO documented in this encounter [facility] 05-11-2022 Evaluation note Encounter Date Diagnosis [...] Instructed patient to wear brace for activities. [facility] Other Evaluation noteNo assessment information available [facility] Work Phone: Evaluation note* Diagnosis Encounter [...] HealthcareEvaluation note* Diagnosis Third trimester state, incidental 38 weeks gestation of Gestational hypertension, antepartum [facility] N[facility]ative - Reported* Type Description Date Medical History learning disability Surgical History tymponostomy x7 [facility] Other Summary Purpose Family History No Family History Records FoundNo Family History Records FoundNo Family History Records Found Advance Directives No Advanced Directives Records FoundNo Advanced Directives Records FoundNo Advanced Directives Records Found Additional Source Comments INFORMATION SOURCE (unrecogn ized section and content) DATE CREATED AUTHOR 09/12/2021 [facility] DATE CREATED AUTHOR AUTHOR'S ORGANIZ ATION 05/21/2022 [place] DATE CREATED AUTHOR AUTHOR'S ORGANIZ ATION 04/26/2024 [facility] EPIC Care Teams (unrecognized sec tion and content) Team Status: Inactive Member Role Status Dates Dee Buchanan MD Attending Provider Active Director Recreation Relationship Specialty Start Date End Date Verito Lamb MD [address] [facility] [address] [place] [address] PCP - General Family Medicine 10/18/22 Director Recreation Relationship Specialty Start Date End Date Verito Lamb MD [address] [facility] [address] [place] [address] PCP - General Family Medicine 10/18/22 Director Recreation Relationship Specialty Start Date End Date Verito Lamb MD [address] [facility] [address] [place] [address] PCP - General Family Medicine 10/18/22 Director Recreation Relationship Specialty Start Date End Date Verito Lamb MD [address] [facility] [address] [place] [address] PCP - General Family Medicine 10/18/22 Director Recreation Relationship Specialty Start Date End Date Verito Lamb MD [address] [facility] [address] [place] [address] PCP - General Family Medicine 10/18/22 Director Recreation Relationship Specialty Start Date End Date Verito Lamb MD [address] [facility] [address] [place] [address] PCP - General Family Medicine 10/18/22 Director Recreation Relationship Specialty Start Date End Date Verito Lamb MD [address] [facility] [address] [place] [address] PCP - General Family Medicine 10/18/22 Director Recreation Relationship Specialty Start Date End Date Verito Lamb MD [address] [facility] [address] [place] [address] PCP - General Family Medicine 10/18/22 Director Recreation Relationship Specialty Start Date End Date Verito Lamb MD [address] [facility] [address] [place] [address] PCP - General Family Medicine 10/18/22 Director Recreation Relationship Specialty Start Date End Date Verito Lamb MD [address] [facility] [address] [place] [address] PCP - General Family Medicine 10/18/22 Director Recreation Relationship Specialty Start Date End Date Verito Lamb MD [address] [facility] [address] [place] [address] PCP - General Family Medicine 10/18/22 Director Recreation Relationship Specialty Start Date End Date Verito Lamb MD [address] [facility] [address] [place] [address] PCP - General Family Medicine 10/18/22 Director Recreation Relationship Specialty Start Date End Date Verito Lamb MD [address] [facility] [address] [place] [address] PCP - General Family Medicine 10/18/22 Director Recreation Relationship Specialty Start Date End Date Verito Lamb MD [address] [facility] [address] [place] [address] PCP - General Family Medicine 10/18/22 Director Recreation Relationship Specialty Start Date End Date Verito Lamb MD [address] [facility] [address] [place] [address] PCP - General Family Medicine 10/18/22 Goals [...] BE BASED ON THE PRIMARY CLINICAL RECORDS. [facility]. provides no warranty or guarantee of the accuracy or completeness of information in this document.
[2024-05-01 05:57] LABS: Hematocrit 36.9 % (36.0-48.0); Hemoglobin 12.4 g/dL (12.0-16.0); Mean Corpuscular HGB Conc 33.6 g/dL (29.9-35.2); Mean Corpuscular Hemoglobin 27.8 pg (26.7-34.0); Mean Corpuscular Volume 82.7 fL (81.0-99.0); Mean Platelet Volume 12.3 fL (9.5-13.5); Platelet Count 230 10^3/uL (150-450); Red Blood Count 4.46 10^6/uL (4.20-5.40); Red Cell Distribution Width 13.4 % (11.0-15.0); White Blood Count 10.9 10^3/uL (4.0-11.0)
[2024-05-01 06:09] LABS: Amphetamine Screen Urine NEGATIVE (NEGATIVE); Barbiturates Screen Urine NEGATIVE (NEGATIVE); Benzodiazepines Screen Urine NEGATIVE (NEGATIVE); Cannabinoid Screen Urine NEGATIVE (NEGATIVE); Cocaine Screen Urine NEGATIVE (NEGATIVE); Methadone Screen Urine NEGATIVE (NEGATIVE); Methamphetamines Screen Urine NEGATIVE (NEGATIVE); Opiate Screen Urine NEGATIVE (NEGATIVE); Oxycodone Screen Urine NEGATIVE (NEGATIVE); Phencyclidine Screen Urine NEGATIVE (NEGATIVE); Tricyclic Antidepressant Urine NEGATIVE (NEGATIVE)
[2024-05-01] MEDS: 0.9 % SODIUM CHLORIDE 1,000 ML 125 ML IV (06:32)
[2024-05-01] MEDS: OXYTOCIN/0.9 % SODIUM CHLORIDE 10 UNITS/500 ML PLAST..BAG 6 UNIT IV (06:40)
[2024-05-01 07:45] LABS: Buprenorphine Screen Urine NEGATIVE (NEGATIVE)
[2024-05-01] MEDS: NALBUPHINE HCL 10 MG/ML AMPULE IV (09:10)
[2024-05-01] MEDS: 0.9 % SODIUM CHLORIDE 1,000 ML 1000 ML IV (09:15)
[2024-05-01] MEDS: ROPIVACAINE HCL/PF 400 MG/200 ML PREMIX 6 MG EPIDURAL (09:58)
[2024-05-01] MEDS: OXYTOCIN/0.9 % SODIUM CHLORIDE 20 UNITS/1,000 ML PLAST..BAG 125 UNIT IV (11:45)
--- NOTE | 2024-05-01 11:52 | PM.OBPRCVD ---
Procedure Intrapartal events: None Induction method: per pitocin protocol Delivery augmentation: rupture of membranes and pitocin Delivery monitor: external FHT and external uterine Route of delivery: Episiotomy Description: none L&D Laceration Description: none Estimated blood loss (mL): 250 Anesthesia type: Epidural Disposition: PACU Delivery date: 05/01/24 Gender: female presentation: vertex Placental delivery description: Spontaneous cord description: 3 Vessels and Nuchal Cord
[2024-05-01] MEDS: LABETALOL HCL 100 MG TABLET PO (22:30)
[2024-05-02 00:38] VITALS: BP 142/101; PULSE 90
[2024-05-02 00:39] VITALS: BP 141/94; PULSE 78
[2024-05-02 01:50] VITALS: BP 143/94; PULSE 71
[2024-05-02] MEDS: IBUPROFEN 600 MG TABLET PO ×2 (04:46→13:07)
[2024-05-02 06:37] LABS: Basophils Percent Auto 0.3 % (0.2-2.0); Eosinophils Absolute Auto 0.1 10^3/uL (0.0-0.7); Eosinophils Percent Auto 0.6 % (0.9-7.0); Hematocrit 34.5 % (36.0-48.0); Hemoglobin 11.6 g/dL (12.0-16.0); Immature Granulocytes Abs Auto 0.05 10^3/uL (0.00-0.03); Immature Granulocytes Pct Auto 0.4 % (0.0-0.5); Mean Corpuscular HGB Conc 33.6 g/dL (29.9-35.2); Mean Corpuscular Hemoglobin 27.9 pg (26.7-34.0); Mean Corpuscular Volume 82.9 fL (81.0-99.0); Mean Platelet Volume 11.7 fL (9.5-13.5); Monocytes Absolute Auto 0.8 10^3/uL (0.3-0.8); Monocytes Percent Auto 6.3 % (1.7-12.0); Neutrophils Absolute Auto 8.2 10^3/uL (1.4-6.5); Neutrophils Percent Auto 67.4 % (43.0-75.0); Platelet Count 200 10^3/uL (150-450); Red Blood Count 4.16 10^6/uL (4.20-5.40); Red Cell Distribution Width 13.6 % (11.0-15.0); White Blood Count 12.1 10^3/uL (4.0-11.0)
--- NOTE | 2024-05-02 08:13 | PM.OBPN ---
OB - PN: Subj Subjective Patient comments: no complaints and pain well controlled [place] status: doing well Exam Constitutional Vital Signs, click to edit/add: Last Vital Signs Temp 98.9 F 05/01/24 11:45 Pulse 71 05/02/24 01:50 Resp 16 05/01/24 11:45 BP 143/94 H 05/02/24 01:50 O2 Del Method Room Air 05/01/24 06:21 Documenting provider has reviewed patient's vital signs: yes Common normals: no apparent distress Respiratory Common normals: normal respiratory effort and clear to auscultation bilaterally Cardio Common normals: regular rate and regular rhythm GI Common normals: Normal to inspection, nondistended, normoactive bowel sounds present Extremity Common normals: normal to inspection and no clubbing, cyanosis or edema Results Labs Labs: Short CBC 05/02/24 Range/Units 06:29 WBC 12.1 H (4.0-11.0) 10^3/uL Hgb 11.6 L (12.0-16.0) g/dL Hct 34.5 L (36.0-48.0) % Plt Count 200 (150-450) 10^3/uL OB - PN: A/P Plan - Vaginal Delivery day: 1 Plan: routine care Time Spent with Patient Time: Total time spent is greater than 50% in coordination of care (as documented) at patient's floor/unit and/or counseling patient: Total time spent with greater than 50% in coordination of care (as documented) at patient's floor/unit and/or counseling patient: less than 15 minutes
[2024-05-02 09:40] VITALS: TEMP 36.6
[2024-05-02 09:49] VITALS: BP 139/93; PULSE 69
[2024-05-02] MEDS: VENLAFAXINE HCL ER 37.5 MG CAPSULE PO (09:54)
[2024-05-02] MEDS: DOCUSATE SODIUM 100 MG CAPSULE PO (09:55)
[2024-05-02] MEDS: LABETALOL HCL 100 MG TABLET PO (09:55)
== END 2024-05-02 14:45 | disposition home or self-care (01) | DRG 807 ==
PROVIDERS: Admitting Provider Obstetrics & Gynecology; PCP Family Medicine; Visit Provider Obstetrics & Gynecology
DX: O13.4 Gestational [pregnancy-induced] hypertension without significant proteinuria, complicating childbirth (principal); Z37.0 Single live birth; O69.81X0 Labor and delivery complicated by cord around neck, without compression, not applicable or unspecified; Z3A.39 39 weeks gestation of pregnancy
CPT/HCPCS: 36415; 59050; 59410; 80307; 85025; 85027; 86850; 86900; 86901; J2300; J2795

== ENCOUNTER 2024-05-07 08:20 | Outpatient (OUT) | payer OTHER, SELFPAY ==
--- NOTE | 2024-05-07 14:03 | PC.NURSE ---
Nazia and 6 day old Cony arrive for follow up. Nazia chawla is physically doing well, but is struggling with baby blues/depression. States I cry several times a day feels sad , as well as feeling very anxious. Pt is on Effexor daily and has incredible support from , in laws and parents. Pt has appointment with Dr Burger tomorrow with plans to talk with him. Pt feels safe to be alone with baby, no thoughts of hurting herself or . States feels safe to wait until scheduled time to meet with Dr Burger. VSS and assessment WNL. Initial blood pressure is 140/95. Taking Labetolol as prescribed (100 mg twice daily) and has had dose this AM at 0600. is currently pumping and feeding baby via bottle as this is working well for now Plans to return baby to breast when feeling not so anxious and overwhelmed. Repeat BP (15 min after initial) is 121/88. Pt denies any s/s of elevated BP, no headache, visual problems, nausea ect. Noted to have +2 edema of feet and lower leg, slightly pitting with pulses palpable bilaterally. No complaints of discomfort at this time. Has been pumping each time baby needs to feed. No problems with pumping at this time. Baby with VSS and assessment WNL. Mom reports feeding every 2.5 hours and taking 1.5-2 oz via bottle. Multiple wets and stools noted by mom6+ wets and 5-6 yellow stools in 24 hours. Mom bottle feeds baby 2 oz pumped milk and settles him well. Family home at this time. Will return 05/17/2024 at 1030 for support. Aware to call as needed and of [facility].
[2024-05-07 14:10] VITALS: BP 121/88; BP 140/95; PULSE 76; TEMP 36.7; O2SAT 98
== END 2024-05-07 14:15 | disposition home or self-care (01) ==
LOC: FBCO 08:21
PROVIDERS: PCP Family Medicine; Visit Provider Obstetrics & Gynecology
DX: Z39.1 Encounter for care and examination of lactating mother (principal)

== ENCOUNTER 2024-05-17 07:32 | Outpatient (OUT) | payer OTHER, SELFPAY ==
--- OUTSIDE RECORDS SUMMARY | 2024-05-17 07:40 | XMS_ITS | CCD ---
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 Name Role Phone JENNYFER, DR OSPINA Admitting [...] Consulting Unavailable MD Dee Buchanan Attending Provider [phone] Dee Buchanan Attending Unavailable Dee Buchanan Admitting Unavailable Dee Buchanan Unavailable Verito Lamb MD Primary Care Provider [phone] AMANDA MARTINEZ Attending Unavailable ANAI BURGER Attending Unavailable LORENE PLASENCIA Attending Unavailable LORENE PLASENCIA Attending Unavailable ANAI BURGER Attending Unavailable AMANDA MARTINEZ Attending Unavailable SANGEETHA GRAY Attending Unavailable AMANDA MARTINEZ Attending Unavailable ANAI BURGER Attending Unavailable ANAI BURGER Attending Unavailable HEMLORENE MANDEL Attending Unavailable AMANDA MARTINEZ Attending Unavailable AMANDA MARTINEZ Attending Unavailable JENNYFERANAI OLIVA Attending Unavailable JUANAMANDA Attending Unavailable AMANDA MARTINEZ Attending Unavailable AMANDA MARTINEZ Attending Unavailable ANAI BURGER Attending Unavailable Allergies Allergy Classification Reported Allergen(s) Allergy Type Date of Onset Reaction(s) Facility (1 source) Cephalexin Drug Allergy The [facility] Repository (20 sources) ARIPiprazole Drug Allergy 3 [facility] Work Phone: (20 sources) cariprazine Drug Allergy 3 [facility] (20 sources) Cephalexin Drug Allergy 3 Unknown [facility] (20 sources) Propofol Drug Allergy 3 Unknown [facility] (20 sources) Flavoring Agent Allergy to substance 3 Unknown [facility] (20 sources) Mosquito (Diagnostic) Drug Allergy 3 Unknown [facility] (19 sources) Flavoring Agent (Non-Screening) Allergy to substance 3 Unknown [facility] Medications Current Medications Medication Drug Class(es) [...] omeprazole 20 mg delayed release oral capsule (18 sources) Proton Pump Inhibitor Start: 04-03-2024 End: 04-03-2025 take 1 capsule by mouth before mealtime omeprazole (PriLOSEC) [address] capsule Indications: Heartburn during in third trimester Take 1 capsule (20 mg) by mouth in the morning. Take before meals. Do not crush or chew.. 30 capsule 11 04/03/2024 05/08/2024 Discontinued MV & Min w/FA-DHA ([facility] PO) (20 sources) End: 05-08-2024 take 1 tablet by mouth once daily MV & Min w/FA-DHA ([facility]) Take 1 tablet by mouth 1 (one) time each day 05/08/2024 Discontinued take 1 tablet by mouth once reynold y MV & Min w/FA-DHA ([facility]) Take 1 tablet by mouth 1 (one) time each day Active Progesterone 200 MG supposit ory (6 sources) Start: 08-31-2023 End: 11-23-2023 Progesterone 200 MG supposit ory Indications: History [...] without significant proteinuria, unspecified trimester] 03-01-2024 Episodic Miscellaneous mental health disorders (2 sources) depression; Translations: [ depression] 05-08-2024 Episodic Mood disorders (20 sources) Moderately severe [...] Name Value Interpretation Reference Range Facility ALL CBC WITH AUTO DIFFon BASOPHILS ABSOLUTE AUTO 0 [facility] Basophils/100 WBC (Bld) 0.3 % 0.2 - 2.0 % [facility] Eosinophils/100 WBC (Bld) 0.6 % Low 0.9 - 7.0 % [facility] Erythrocyte distribution width (RBC) [Ratio] 13.6 % 11.0 - 15.0 % [facility] Hematocrit (Bld) [Volume fraction] 34.5 % Low 36.0 - 48.0 % [facility] Hem[facility] (Bld) [Mass/Vol] 11.6 g/dL Low 12.0 - 16.0 g/dL [facility] IMMATURE GRANULOCYTES ABS AUTO 0.05 High [facility] Immature granulocytes/100 WBC (Bld) 0.4 % 0.0 - 0.5 % [facility] Interpretation and review of laboratory results Abnormal [facility] LYMPHOCYTES ABSOLUTE AUTO 3 [facility] Lymphocytes/100 WBC (Bld) 25 % 20.5 - 60.0 % [facility] MCH (RBC) [Entitic mass] 27.9 pg 26.7 - 34.0 pg [facility] MCHC (RBC) [Mass/Vol] 33.6 g/dL 29.9 - 35.2 g/dL [facility] MCV (RBC) [Entitic vol] 82.9 fL 81.0 - 99.0 fL [facility] MONOCYTES ABSOLUTE AUTO 0.8 [facility] Monocytes/100 WBC (Bld) 6.3 % 1.7 - 12.0 % [facility] NEUTROPHILS ABSOLUTE AUTO 8.2 High [facility] Neutrophils/100 WBC (Bld) 67.4 % 43.0 - 75.0 % [facility] Platelet mean volume (Bld) [Entitic vol] 11.7 fL 9.5 - 13.5 fL [facility] TBH EO # 0.1 [facility] PLT 200 [facility] RBC 4.16 Low [facility] WBC 12.1 High [facility] HP CBC WITH PLATELET NO DI FFERENTIALon 05-01-2024 Erythrocyte distribution width (RBC) [Ratio] 13.4 % 11.0 - 15.0 % [facility] Hematocrit (Bld) [Volume fraction] 36.9 % 36.0 - 48.0 % [facility] Hemoglobin (Bld) [Mass/Vol] 12.4 g/dL 12.0 - 16.0 g/dL [facility] MCH (RBC) [Entitic mass] 27.8 pg 26.7 - 34.0 pg [facility] MCHC (RBC) [Mass/Vol] 33.6 g/dL 29.9 - 35.2 g/dL [facility] MCV (RBC) [Entitic vol] 82.7 fL 81.0 - 99.0 fL [facility] Platelet mean volume (Bld) [Entitic vol] 12.3 fL 9.5 - 13.5 fL [facility] TBH PLT 230 [facility] RBC 4.46 [facility] WBC 10.9 [facility] US OB BPP W NON-STRESS on 04-30-[address] [address] Ultrasound Report Signed Patient: NAZIA RUIZ MR#: [id number] : 1995 Acct:[id number] Age/Sex: 28 / F ADM Date: 04/28/24 Loc: US Attending Dr: Anai Burger D.O. Ordering Physician: Anai Burger D.O. Date of Service: 04/28/24 Procedure(s): US OB BPP w non-stress Accession Number(s): [id number] cc: VERITO LAMB ; Anai Burger D.O. The [place] [address] Patient Name: NAZIA RUIZ MRN: [facility]:[id number] date: 1995 Sex: F Assigned Patient Location: [facility] Current Patient Location: Accession/Order Number: [id number] Exam Date: 04/28/2024 14:50 Report Date: 04/30/2024 [...] M.D. Signed By: 04/30/24711 DD/ 9 TD/TT: Customer Assistance Representative: [facility] Radiology, Radiologist, MD - 04/30/2024 [place] [address] Ultrasound Report Signed Patient: NAZIA RUIZ MR#: [id number] : 1995 Acct:[id number] Age/Sex: 28 / F ADM Date: 04/28/24 Loc: US Attending Dr: Anai Burger D.O. Ordering Physician: Anai Burger D.O. Date of Service: 04/28/24 Procedure(s): US OB BPP w non-stress Accession Number(s): [id number] cc: VERITO LAMB ; Anai Burger D.O. [place] [address] Patient Name: NAZIA RUIZ MRN: [id number] date: 1995 Sex: F Assigned Patient Location: [facility] Current Patient Location: Accession/Order Number: [id number] Exam Date: 04/28/2024 14:50 Report Date: 04/30/2024 [...] M.D. Signed By: 04/30/24711 DD/ 9 TD/TT: Customer Assistance Representative: [facility] [place] Radiology Study observation (narrative) [facility] OB BPP W NON-STRESS Ordered By: Radiologist Radiology on 04-30-2024 [facility] [employer] Work Phone: Urinalysis macro (dipstick) panel (U)on 04-24-2024 Bilirubin, UA Negative Negative - 4(70) +++ mg/dL [facility] Blood, UA Negative Negative - 50 Neno/mcL [facility] Clarity, UA Clear [facility] Color, UA Yellow [facility] Glucose, UA Negative Negative - 1999(110) ++++ mg/dL [facility] Interpretation and review of laboratory results Abnormal [facility] Ketones, UA Negative Negative - 160(16) ++++ mg/dL [facility] Leukocytes, UA Negative Negative - 500+++ Virgie/mcL [facility] Nitrite, UA Negative Negative - Positive [facility] pH, UA 7.5 5 - 9 [facility] Protein, UA Many Negative - 1999(20) ++++ mg/dL [facility] Spec Grav, UA 1.025 1 - 1.03 [facility] Urobilinogen, UA 1.0 0.2 - 12 mg/dL [facility] US OB BPP W NON-STRESS on 04-21-2024 [place] [address] Ultrasound Report Signed Patient: NAZIA RUIZ MR#: [id number] : 1995 Acct:[id number] Age/Sex: 28 / F ADM Date: 04/21/24 Loc: [facility] [place] [place] Attending Dr: Anai Burger D.O. Ordering Physician: Anai Burger D.O. Date of Service: 04/21/24 Procedure(s): US OB BPP w non-stress Accession Number(s): [id number] cc: VERITO LAMB ; Anai Burger D.O. [place] [address] Patient Name: NAZIA RUIZ MRN: [id number] date: 1995 Sex: F Assigned Patient Location: [facility] Current Patient Location: Accession/Order Number: [id number] Exam Date: 04/21/2024 15:06 Report Date: 04/21/2024 [...] PRISCILLA MONTEJO Date: 04/21/2024 17:47 Dictated By: Pirscilla Montejo M.D. Signed By: 04/21/24 175 DD/ 1747 TD/TT: Customer Assistance Representative: [facility] Radiology, Radiologist, MD - 04/21/2024 [place] [address] Ultrasound Report Signed Patient: NAZIA RUIZ MR#: [id number] : 1995 Acct:[id number] Age/Sex: 28 / F ADM Date: 04/21/24 Loc: FBCO Attending Dr: Anai Burger D.O. Ordering Physician: Anai Burger D.O. Date of Service: 04/21/24 Procedure(s): US OB BPP w non-stress Accession Number(s): [id number] cc: VERITO LAMB ; Anai Burger D.O. The [address] [address] Patient Name: NAZIA RUIZ MRN: [facility]:[id number] date: 1995 Sex: F Assigned Patient Location: [facility] Current Patient Location: Accession/Order Number: [id number] Exam Date: 04/21/2024 15:06 Report Date: 04/21/2024 [...] M.D. Signed By: 04/21/241749 DD/ 46 TD/TT: Customer Assistance Representative: [facility] Radiology Study observation (narrative) [facility] US OB BPP W NON-STRESS Ordered By: Radiologist Radiology on 04-21-2024 [facility] [employer] Work Phone: Urinalysis macro (dipstick) panel (U)on 04-17-2024 Bilirubin, UA Negative Negative - 4(70) +++ mg/dL [facility] Blood, UA Negative Negative - 50 Neno/mcL [facility] Clarity, UA Clear [facility] [employer] re Color, UA Yellow [facility] [employer] [facility] Glucose, UA Negative Negative - 2000(110) ++++ mg/dL [facility] Interpretation and review of laboratory results Abnormal [facility] [employer] re Ketones, UA Negative Negative - 160(16) ++++ mg/dL [facility] Leukocytes, UA Trace Negative - 500+++ Virgie/mcL [facility] Nitrite, UA Negative Negative - Positive [facility] pH, UA 7 5 - 9 [facility] e Protein, UA Positive Negative - 1999(20) ++++ mg/dL [facility] Comment on above: 100 Spec Grav, UA 1.02 1 - 1.03 [facility] Urobilinogen, UA 0.2 0.2 - 12 mg/dL [facility] ALL MISCELLANEOUS TESTon MISCELLANEOUS TEST COMMENT . [facility]alth[facility] Comment on above: Test Ordered: [id number] Strep Gp B Culture+Rflx Strep Gp B Culture+Rflx Negative CB Reference Range: Negative Centers for Disease Control and Prevention (CDC) and [place] Congress of Obstetricians and Gynecologists (ACOG) guidelines [...] resistance to clindamycin is noted. Performed at: [facility] [address] [id number] Cloth Winder Machine Operator: Nadir Schaffer PhD, Phone: [phone] GROUP B STREP [id number] Group B Streptococcus Colonization Detection Culture With Re [facility] e Urinalysis macro (dipstick) panel (U)on 03-19-2024 Bilirubin, UA Positive Negative - 4(70) +++ mg/dL [facility] Comment on above: small Blood, UA Positive Negative - 50 Neno/mcL [facility] Comment on above: trace Clarity, UA Cloudy [facility] re Color, UA Marilyn [facility] e Glucose, UA Negative Negative - 1999(110) ++++ mg/dL [facility] Interpretation and review of laboratory results Abnormal [facility] re Ketones, UA Negative Negative - 160(16) ++++ mg/dL [facility] Leukocytes, UA Trace Negative - 500+++ Virgie/mcL [facility] Nitrite, UA Negative Negative - Positive [facility] pH, UA 6 5 - 9 [facility] Protein, UA Positive Negative - 1999(20) ++++ mg/dL [facility] Comment on above: 30 Spec Grav, UA 1.03 1 - 1.03 [facility] Urobilinogen, UA 0.2 0.2 - 12 mg/dL [facility] Urinalysis macro (dipstick) panel (U)on 03-05-2024 Bilirubin, UA Negative Negative - 4(70) +++ mg/dL [facility] Blood, UA Negative Negative - 50 Neno/mcL [facility] Clarity, UA Clear [facility] re Color, UA Yellow [facility] Glucose, UA Negative Negative - 1999(110) ++++ mg/dL [facility] Interpretation and review of laboratory results Abnormal [facility] re Ketones, UA Negative Negative - 160(16) ++++ mg/dL [facility] Leukocytes, UA Positive Negative - 500+++ Virgie/mcL [facility] Comment on above: small Nitrite, UA Negative Negative - Positive [facility] pH, UA 6 5 - 9 [facility] e Protein, UA Negative Negative - 1999(20) ++++ mg/dL [facility] Spec Grav, UA 1.015 1 - 1.03 [facility] Urobilinogen, UA 0.2 0.2 - 12 mg/dL [facility] APTTon 03-02-2024 aPTT Coag (Bld) [Time] 23.9 s [facility] No Panel Informationon 03-02 [facility] e SRMCOH PROTHROMBIN TIME INR W/O COUMon 03-02-2024 PT Coag (PPP) [Time] 9.9 s [facility] TB INR 0.93 [facility] Comment on above: DESIRED INR: 2.0-3.0 CONDITIONS NOT LISTED BELOW 2.5-3.5 FOR PROSTHETIC HEART VALVE REPLACEMENT 2.5-3.5 RECURRENT THROMBOSIS Urinalysis macro (dipstick) panel (U)on 03-01-2024 Bilirubin, UA Negative Negative - 4(70) +++ mg/dL [facility] Blood, UA Negative Negative - 50 Neno/mcL [facility] Clarity, UA Clear [facility] Color, UA Yellow [facility] Glucose, UA Negative Negative - 1999(110) ++++ mg/dL [facility] Interpretation and review of laboratory results Abnormal [facility] Ketones, UA Negative Negative - 160(16) ++++ mg/dL [facility] Leukocytes, UA Positive Negative - 500+++ Virgie/mcL [facility] Comment on above: small Nitrite, UA Negative Negative - Positive [facility] pH, UA 7 5 - 9 [facility] Protein, UA Trace Negative - 1999(20) ++++ mg/dL [facility] Spec Grav, UA 1.02 1 - 1.03 [facility] care Urobilinogen, UA 0.2 0.2 - 12 mg/dL [facility] GLUCOSE 1 HOURon 01-25-2024 Glucose [Mass/Vol] 131 mg/dL High NINF - 13 0 mg/dL [facility] Interpretation and review of laboratory results Abnormal [facility] e Urinalysis macro (dipstick) panel (U)on 01-17-2024 Bilirubin, UA Negative Negative - 4(70) +++ mg/dL [facility] Blood, UA Negative Negative - 50 Neno/mcL [facility] Clarity, UA Clear [facility] Color, UA Yellow [facility] Health[facility] e Glucose, UA Negative Negative - 1999(110) ++++ mg/dL [facility] Interpretation and review of laboratory results Abnormal [facility] Ketones, UA Negative Negative - 160(16) ++++ mg/dL [facility] Leukocytes, UA Trace Negative - 500+++ Virgie/mcL [facility] Nitrite, UA Negative Negative - Positive [facility] pH, UA 6 5 - 9 [facility] Protein, UA Negative Negative - 1999(20) ++++ mg/dL [facility] Spec Grav, UA 1.02 1 - 1.03 [facility] care Urobilinogen, UA 1.0 0.2 - 12 mg/dL [facility] Urinalysis macro (dipstick) panel (U)on 12-20-2023 Bilirubin, UA Negative Negative - 4(70) +++ mg/dL [facility] Blood, UA Negative Negative - 50 Neno/mcL [facility] Clarity, UA Clear [facility] Health[facility] re Color, UA Yellow [facility] Glucose, UA Negative Negative - 1999(110) ++++ mg/dL [facility] Interpretation and review of laboratory results Abnormal [facility] Health[facility] re Ketones, UA Negative Negative - 160(16) ++++ mg/dL [facility] Leukocytes, UA Trace Negative - 500+++ Virgie/mcL [facility] Nitrite, UA Negative Negative - Positive [facility] pH, UA 6.5 5 - 9 [facility] Protein, UA Negative Negative - 1999(20) ++++ mg/dL [facility] Spec Grav, UA 1.025 1 - 1.03 [facility] Urobilinogen, UA 0.2 0.2 - 12 mg/dL [facility] AFP, SERUM, OPEN SPINA BIFID Aon 12-11-2023 AFP MOM 0.79 . [facility] AFP VALUE 34.7 ng/mL . [facility] COMMENT: Comment . [facility] Comment on above: Treva Gong , Ph.D., [facility] Director References: Available Upon Request. Multiples Of Median Cutoffs For AFP Elevations Banuelos 2.5 Black 2.8 IDD 2.0 Twins 4.5 Abbreviation Definitions IDD - Insulin Dep Diabetes OSBR - Open Spina Bifida Risk For further inquiries contact [employer] [facility] at [phone]. This test was developed and its performance characteristics determined by [employer]. It has not been cleared or approved by the Food and Drug Administration. Performed at: [facility] [address] [place], [place] [id number] Cloth Winder Machine Operator: Maira Jones [facility], Phone: [phone] GEST. AGE ON COLLECTION DATE 19.3 . weeks [facility] GESTAT. AGE BASED ON LMP . [facility] Comment on above: Recalculations are n ot recommended when gestational dating by LMP and ultrasound are within 10 days. INSULIN DEP DIABETES No . [facility] Healthcare INTERPRETATION Comment . [facility]alt [facility] Comment on above: Interpretation: Scre [...] Customer Services to discuss available options. The [place] [employer]st[employer]ians and Gynec[employer] recommends amniocentesis be offered to women age 35 and older. [age] [facility] [place] MULTIPLE GESTATION No . [facility] [place] [phone] . [facility] Healt [facility]care RACE . [facility] [employer] RESULTS Report . [facility] [employer] TEST RESULTS: Negative . [facility] [employer] Radio care WEIGHT 188 . lbs [facility] [employer] N N LMP [id number] 16 N 1 Y 188 N N N N N White/ [facility] [employer] [facility] IGP,APTIMA HPV,AGE GDLNon AGE GDLN ACOG TESTING Note . [facility] Comment on above: TESTS RESULT FLAG UN ITS REF RANGE LAB Clinician Provided Cytology Information Source.............Cervix No. of containers..01 ThinPrep Vial Age Algo ACOG Madonna... -18 04 FLAG LEGEND: L-Low Normal,H-High Normal,LL-Alert Low,HH-Alert High <-Panic Low,>-Panic High,A-Abnormal,AA-Critical Abnormal Performed at: 01 =G [facility] [address] [place] [address] Tierra Morales MD, IGP, RFX APTIMA HPV ASCU Note . [facility] Comment on above: TESTS RESULT FLAG UN ITS REF RANGE LAB DIAGNOSIS: 02 NEGATIVE FOR INTRAEPITHELIAL LESION OR MALIGNANCY. Specimen adequacy: 02 Satisfactory for evaluation. No endocervical component is identified. Performed by: 02 Francesca Blanc, Braiding Machine Operator ([facility]) . 02 Note: Note 02 The [...] High,A-Abnormal,AA-Critical Abnormal Performed at: 02 [facility] [address] [place] [address] Tierra Morales MD, Performed at: =G - [facility] [address], [place] [id number] Cloth Winder Machine Operator: Tierra Morales MD, Phone: [phone] Performed at: - [facility] [address] [facility] [place] [id number] Cloth Winder Machine Operator: Tierra Morales MD, Phone: [phone] SPATULA-ALONE CERVIX [facility] Urinalysis macro (dipstick) panel (U)on 11-22-2023 Bilirubin, UA Negative Negative - 4(70) +++ mg/dL [facility] Blood, UA Negative Negative - 50 Neno/mcL [facility] Clarity, UA Clear [facility] Color, UA Yellow [facility] Glucose, UA Negative Negative - 1999(110) ++++ mg/dL [facility] Interpretation and review of laboratory results Normal [facility] Ketones, UA Negative Negative - 160(16) ++++ mg/dL [facility] Leukocytes, UA Negative Negative - 500+++ Virgie/mcL [facility] Nitrite, UA Negative Negative - Positive [facility] pH, UA 6.5 5 - 9 [facility] Protein, UA Negative Negative - 1999(20) ++++ mg/dL [facility] Spec Grav, UA 1.025 1 - 1.03 [facility] Health care Urobilinogen, UA 1.0 0.2 - 12 mg/dL [facility] XR wrist LT min 3V*on 2022 XR wrist LT min 3V* [facility] [place] [address] XRay Report Signed Patient: Nazia Harper MR#: [id number] : 1995 Acct:[id number] Age/Sex: 26 / F ADM Date: 05/11/22 Loc: [facility] Room: Type: [facility] Attending Dr: Dee Buchanan MD Copies [...] Travis Jr., D.O.05/11/2022 12:18 PM Dictation Location: [place] [address] Transcribed By: [facility] 05/11/22 1218 Dictated By: Tan Travis Jr, DO 05/11/22 1217 Signed By: 05/11/22 1218 Normal [facility] XR wrist LT min 3V* [facility] [employer] Other XR wrist LT min 3V* [facility] [employer] Other XR wrist LT min 3V* [address] [place] [address] [employer] Other XR wrist LT min 3V* [place] [address] [employer] Other XR wrist LT min 3V* XRay Report [employer] Other XR wrist LT min 3V* Signed [employer] Other XR wrist LT min 3V* Patient: Nazia Harper MR#: [id number] [employer] Other XR wrist LT min 3V* 67 [employer] Other XR wrist LT min 3V* : 1995 Acct:[id number] [employer] Other XR wrist LT min 3V* Age/Sex: 26 / F ADM Date: 05/11/22 [employer] Other XR wrist LT min 3V* Loc: [facility] Room: Type: [facility] [employer] Other XR wrist LT min 3V* Attending Dr: Dee Buchanan MD [employer] Other XR wrist LT min 3V* Copies to: Dee Buchanan MD [employer] Other XR wrist LT min 3V* Ordering Provider: Dee Buchanan MD [employer] Other XR wrist LT min 3V* Date of Service: 05/11/22 [employer] Other XR wrist LT min 3V* XR/XR wrist LT min 3V*: PAIN [employer] Other XR wrist LT min 3V* LEFT WRIST - 4 views [employer] Other XR wrist LT min 3V* CLINICAL HISTORY: Ganglion cyst posterior aspect at the level of the carpals. [employer] Other XR wrist LT min 3V* COMPARISON: None [employer] Other XR wrist LT min 3V* FINDINGS: [employer] Other XR wrist LT min 3V* No focal soft tissue abnormality is noted. No acute bony process is seen. Carpal bones appear [employer] Other XR wrist LT min 3V* unremarkable. [employer] Other XR wrist LT min 3V* XR/XR wrist LT min 3V* [employer] Other XR wrist LT min 3V* IMPRESSION: [employer] Other XR wrist LT min 3V* NO ACUTE BONY PROCESS. [employer] Other XR wrist LT min 3V* Impression dictated by: Tan Travis Jr., D.OJuanis05/11/2022 12:18 PM [employer] Other XR wrist LT min 3V* Dictation Location: [place] [address] [employer] Other XR wrist LT min 3V* Transcribed By: JOSE ALEJANDRO 05/11/22 1218 [employer] Other XR wrist LT min 3V* Dictated By: Tan Travis Jr, DO 05/11/22 [facility] [employer] Other XR wrist LT min 3V* Signed By: [employer] Other XR wrist LT min 3V* 05/11/22 1218 [employer] Other PAP ACOG PANEL 2: 21 to 29on 08-15-2021 . . Normal [facility] Comment on above: Result Comment: Perf ormed at: [facility] Performed By: #### [id number] #### [facility] [facility] [address] [place] [address] Dr. Alek Fu Age Gdln ACOG Testing Normal [facility] Comment on above: Performed By: #### [id number] #### [facility] [address] [place] [address] Dr. Alek Fu DIAGNOSIS: Comment [facility] Comment on above: Result Comment: NEGA TIVE FOR INTRAEPITHELIAL LESION OR MALIGNANCY. Performed at: BA Performed By: #### [id number] #### [facility] [address] [place] [address] Dr. Alek Fu Methodology: Comment [facility] Comment on above: Result Comment: This liquid based ThinPrep(R) pap test was screened with the use of an image guided system. Performed at: WB Performed By: #### [id number] #### [facility] [address] [place] [address] Dr. Alek Fu Note: Comment [facility] Comment on above: Result Comment: The Pap smear is a screening test designed to aid in the detection of premalignant and malignant conditions of the uterine cervix. It is not a diagnostic procedure and should not be used as the sole means of detecting cervical cancer. Both false-positive and false-negative reports do occur. . Performed at: WB Performed By: #### [id number] #### [facility] [address] [place] [address] Dr. Alek Fu Performed by: Comment Normal [facility] Comment on above: Result Comment: Elen Carrillo, Braiding Machine Operator (ASCP) Performed at: BA Performed By: #### [id number] #### [facility] [address] [place] [address] Dr. Alek Fu Reflex Criteria: Comment [facility] Comment on above: Result Comment: The HPV DNA reflex criteria were not met with this specimen result therefore, no HPV testing was performed. . Performed at: BA Performed By: #### [id number] #### [facility] [address] [place] [address] Dr. Alek Fu Specimen adequacy: Comment Normal [facility] Comment on above: Result Comment: Sati sfactory for evaluation. Endocervical and/or squamous metaplastic cells (endocervical component) are present. Performed at: BA Performed By: #### [id number] #### [facility] [address] [place] [address] Dr. Alek Fu XR KNEE SABRINA 4V [...] by: ZURI PHOENIX Date: 2021-07-17 17:09 Normal [facility] CBC AUTO DIFFon 12-08-2020 BASO # 0.0 103/ul Normal 0.0-0.1 [facility] Comment on above: Performed By: #### C BC #### [facility] [address] [place] [address] Dr. Alek Fu Basophils/100 WBC (Bld) 0.2 % Normal 0.2-2.0 [facility] Comment on above: Performed By: #### C BC #### [facility] [address] [place] [address] Dr. Alek Fu EO # 0.0 103/ul Normal 0.0-0.7 [facility] Comment on above: Performed By: #### C BC #### [facility] [address] [place] [address] Dr. Alek Fu Eosinophils/100 WBC (Bld) 0.6 % Critically low 0.9-7.0 [facility] Comment on above: Performed By: #### C BC #### [facility] [address] [place] [address] Dr. Alek Fu Erythrocyte distribution width (RBC) [Ratio] 12.4 % Normal 11.0-15.0 [facility] Comment on above: Performed By: #### C BC #### [facility] [address] [place] [address] Dr. Alek Fu Hematocrit (Bld) [Volume fraction] 44.3 % Normal 36.0-48.0 [facility] Comment on above: Performed By: #### C BC #### [facility] [address] [place] [address] Dr. Alek Fu Hemoglobin (Bld) [Mass/Vol] 15.4 g/dL Normal 12.0-16.0 [facility] Comment on above: Performed By: #### C BC #### [facility] [address] [place] [address] Dr. Alek Fu IG # 0.04 10e3/ul Critically high 0.00-0.03 [facility] Comment on above: Performed By: #### C BC #### [facility] [address] [place] [address] Dr. Alek Fu IG % 0.6 % Critically high 0.0-0.5 [facility] Comment on above: Performed By: #### C BC #### [facility] [address] [place] [address] Dr. Alek Fu LYMPH # 3.2 103/ul Normal 1.2-3.8 [facility] Comment on above: Performed By: #### C BC #### [facility] [address] [place] [address] Dr. Alek Fu Lymphocytes/100 WBC (Bld) 50.2 % Normal 20.5-60.0 [facility] Comment on above: Performed By: #### C BC #### [facility] [address] [place] [address] Dr. Alek Fu MANUAL DIFF REQ NO Normal [facility] Comment on above: Performed By: #### C BC #### [facility] [address] [place] [address] Dr. Alek Fu MCH (RBC) [Entitic mass] 28.7 pg Normal 26.7-34.0 [facility] Comment on above: Performed By: #### C BC #### [facility] [address] [place] [address] Dr. Alek Fu MCHC (RBC) [Mass/Vol] 34.8 g/dL Normal 29.9-35.2 [facility] Comment on above: Performed By: #### C BC #### [facility] [address] [place] [address] Dr. Alek Fu MCV (RBC) [Entitic vol] 82.5 fL Normal 81.0-99.0 [facility] Comment on above: Performed By: #### C BC #### [facility] [address] [place] [address] Dr. Alek Fu MONO # 0.6 103/ul Normal 0.3-0.8 [facility] Comment on above: Performed By: #### C BC #### [facility] [address] [place] [address] Dr. Alek Fu Monocytes/100 WBC (Bld) 10.0 % Normal 1.7-12.0 [facility] Comment on above: Performed By: #### C BC #### [facility] [address] [place] [address] Dr. Alek uF NEUT # 2.4 103/ul Normal 1.4-6.5 [facility] Comment on above: Performed By: #### C BC #### [facility] [address] [place] [address] Dr. Alek Fu Neutrophils/100 WBC (Bld) 38.4 % Critically low 43.0-75.0 [facility] Comment on above: Performed By: #### C BC #### [facility] [address] [place] [address] Dr. Alek Fu Platelet mean volume (Bld) [Entitic vol] 9.9 fL Normal 9.5-13.5 [facility] Comment on above: Performed By: #### C BC #### [facility] [address] [place] [address] Dr. Alek Fu PLT 206 103/ul Normal 150-450 [facility] Comment on above: Performed By: #### C BC #### [facility] [address] [place] [address] Dr. Alek Fu RBC 5.37 106/ul Normal 4.20-5.40 [facility] Comment on above: Performed By: #### C BC #### [facility] [address] [place] [address] Dr. Alek Fu WBC 6.3 103/ul Normal 4.0-11.0 [facility] Comment on above: Performed By: #### C BC #### [facility] [address] [place] [address] Dr. Alek Fu ER URINE PROFILEon 1 Bilirubin Ql (U) Negative Normal NEGATIVE [facility] Comment on above: Performed By: #### E RUR #### [facility] [address] [place] [address] Dr. Alek Fu Clarity (U) CLEAR Normal CLEAR [facility] Comment on above: Performed By: #### E RUR #### [facility] [address] [place] [address] Dr. Alek Fu Color (U) YELLOW Normal YELLOW [facility] Comment on above: Performed By: #### E RUR #### [facility] [address] [place] [address] Dr. Alek HAWKINSNika A micrscopic examination will be performed if indicated. Normal [facility] Comment on above: Performed By: #### E RUR #### [facility] [address] [place] [address] Dr. Alek Fu Glucose Ql (U) Negative Normal NEGATIVE [facility] Comment on above: Performed By: #### E RUR #### [facility] [address] [place] [address] Dr. Alek Fu Hemoglobin Ql (U) TRACE-INTACT Abnormal NEGATIVE [facility] Comment on above: Performed By: #### E RUR #### [facility] [address] [place] [address] Dr. Alek Fu Ketones Ql (U) TRACE Abnormal NEGATIVE [facility] Comment on above: Performed By: #### E RUR #### [facility] [address] [place] [address] Dr. Alek Fu LEUKOCYTES Negative Normal NEGATIVE [facility] Comment on above: Performed By: #### E RUR #### [facility] [address] [place] [address] Dr. Alek Fu Nitrite Ql (U) Negative Normal NEGATIVE [facility] Comment on above: Performed By: #### E RUR #### [facility] [address] [place] [address] Dr. Alek Fu pH (U) 6.0 [pH] Normal 5-9 [facility] Comment on above: Performed By: #### E RUR #### [facility] [address] [place] [address] Dr. Alek Fu SPEC GRAVITY 1.015 Normal 1.005-<=1.025 [facility] Comment on above: Performed By: #### E RUR #### [facility] [address] [place] [address] Dr. Alek Fu UA PROTEIN Negative Normal NEGATIVE/ TRACE [facility] Comment on above: Performed By: #### E RUR #### [facility] [address] [place] [address] Dr. Alek Fu UR MICRO IND NOT INDICATED Normal [facility] Comment on above: Performed By: #### E RUR #### [facility] [address] [place] [address] Dr. Alek Fu Urobilinogen Qn (U) 0.2 {Roya'U}/dL Normal 0.2 - 1.0 [facility] Comment on above: Performed By: #### E RUR #### [facility] [address] [place] [address] Dr. Alek Fu URon 12-08-2020 , QUAL Negative Normal NEGATIVE [facility] Comment on above: Performed By: #### P REGU #### [facility] [address] [address] [address] Alek Fu PROF CHEM 8 (BAS METB)on Anion gap [Moles/Vol] 13.0 mmol/L Normal [facility] Comment on above: Performed By: #### B MP #### [facility] [address] [place] [address] Dr. Alek Fu Calcium [Mass/Vol] 9.0 mg/dL Normal 8.4-10.2 [facility] Comment on above: Performed By: #### B MP #### [facility] [address] [place] [address] Dr. Alek Fu Chloride [Moles/Vol] 103 mmol/L Normal 98-107 [facility] Comment on above: Performed By: #### B MP #### [facility] [address] [place] [address] Dr. Alek Fu CO2 [Moles/Vol] 25.0 mmol/L Normal 22.0-30.0 [facility] Comment on above: Performed By: #### B MP #### [facility] [address] [place] [address] Dr. Alek Fu Creatinine [Mass/Vol] 0.96 mg/dL Normal 0.52-1.04 [facility] Comment on above: Performed By: #### B MP #### [facility] [address] [place] [address] Dr. Alek Fu EGFR-AF CITIZEN [place] >60 Normal >=60 [facility] Comment on above: Performed By: #### B MP #### [facility] [address] [place] [address] Dr. Alek Fu EGFR-NON AF CITIZEN OF [place] >60 Normal >=60 [facility] Comment on above: Performed By: #### B MP #### [facility] [address] [place] [address] Dr. Alek Fu Glucose [Mass/Vol] 99 mg/dL Normal 74-106 [facility] Comment on above: Performed By: #### B MP #### [facility] [address] [address] [address] Alek Fu Potassium [Moles/Vol] 3.0 mmol/L Critically low 3.4-5.0 [facility] Comment on above: Performed By: #### B MP #### [facility] [address] [address] [address] Alek Fu Sodium [Moles/Vol] 138 mmol/L Normal 137-145 [facility] Comment on above: Performed By: #### B MP #### [facility] [address] [address] [address] Alek Fu Urea nitrogen [Mass/Vol] 11.0 mg/dL Normal 7.0-17.0 [facility] Comment on above: Performed By: #### B MP #### [facility] [address] [address] [address] Alek Fu Urea nitrogen/Creatinin e [Mass ratio] 11.5 mg/mg Normal [facility] Comment on above: Performed By: #### B MP #### [facility] [address] [address] [address] Alek Fu Covid-19 PCR (CVDTB)on 11-19 SARS-CoV-2 (COVID-19) RNA SANTANA+probe Ql (Unsp spec) Detected Critically abnormal NOT DETECTED [facility] Comment on above: Result Comment: This test is not yet approved or cleared by the [place] FDA. When there are no FDA-approved or cleared tests available, and other criteria are met, FDA can make tests available under an emergency access mechanism called an Emergency Use Authorization (EUA). The EUA for this test is supported by the [place] of Health and Human Service's (HHS's) declaration [...] used). Performed By: #### C VDTBH #### [facility] [address] [address] [address] Alek Fu Vital Signs Date Time Vital Sign Value Performing Clinician Mayelin cruz 05-08-2024 09:48-0500 Body mass index (BMI) [Ratio] 36.43 kg/m2 Amanda ROMAN Work Phone: [facility] 05-08-2024 09:48-0500 Body weight 90.36 kg Amanda ROMAN Work Phone: [facility] 05-08-2024 09:48-0500 Diastolic blood pressure 82 mm[Hg] Amanda ROMAN Work Phone: [facility] 05-08-2024 09:48-0500 Systolic blood pressure 128 mm[Hg] Amanda ROMAN Work Phone: [facility] 04-24-2024 10:55-0500 Body mass index (BMI) [Ratio] 40.02 kg/m2 Anai Jennyfer DO Work Phone: [facility] 04-24-2024 10:55-0500 Body weight 99.25 kg Anai Jennyfer DO Work Phone: [facility] 04-24-2024 10:55-0500 Diastolic blood pressure 74 mm[Hg] Anai Jennyfer DO Work Phone: [facility] 04-24-2024 10:55-0500 Systolic blood pressure 122 mm[Hg] Anai Jennyfer DO Work Phone: [facility] 04-17-2024 11:18-0500 Body mass index (BMI) [Ratio] 39.51 kg/m2 Anai Jennyfer DO Work Phone: [facility] 04-17-2024 11:18-0500 Body weight 97.98 kg Anai Jennyfer DO Work Phone: [facility] 04-17-2024 11:18-0500 Diastolic blood pressure 78 mm[Hg] Anai Jennyfer DO Work Phone: [facility] 04-17-2024 11:18-0500 Systolic blood pressure 124 mm[Hg] Anai Burger DO Work Phone: [facility] 04-10-2024 10:17-0500 Body mass index (BMI) [Ratio] 39.53 kg/m2 Amanda Juan PA Work Phone: [facility] 04-10-2024 10:17-0500 Body weight 98.03 kg Amanda [place] PA Work Phone: [facility] 04-10-2024 10:17-0500 Diastolic blood pressure 76 mm[Hg] Amanda Juan PA Work Phone: [facility] 04-10-2024 10:17-0500 Systolic blood pressure 116 mm[Hg] Amanda Juan PA Work Phone: [facility] 03-19-2024 10:38-0500 Body mass index (BMI) [Ratio] 37.68 kg/m2 Amanda [place] PA Work Phone: [facility] 03-19-2024 10:38-0500 Body weight 93.44 kg Amanda [place] PA Work Phone: [facility] 03-19-2024 10:38-0500 Diastolic blood pressure 76 mm[Hg] Amanda Juan PA Work Phone: [facility] 03-19-2024 10:38-0500 Systolic blood pressure 122 mm[Hg] Amanda [place] PA Work Phone: [facility] 03-05-2024 09:47-0500 Body mass index (BMI) [Ratio] 37.93 kg/m2 Amanda [place] PA Work Phone: [facility] 03-05-2024 09:47-0500 Body weight 94.08 kg Amanda [place] PA Work Phone: [facility] 03-05-2024 09:47-0500 Diastolic blood pressure 74 mm[Hg] Amanda [place] PA Work Phone: [facility] 03-05-2024 09:47-0500 Systolic blood pressure 110 mm[Hg] Amanda [place] PA Work Phone: [facility] 03-01-2024 11:46-0500 Body mass index (BMI) [Ratio] 37.57 kg/m2 Amanda Juan PA Work Phone: [facility] 03-01-2024 11:46-0500 Body weight 93.17 kg Amanda Juan PA Work Phone: [facility] 03-01-2024 11:46-0500 Diastolic blood pressure 90 mm[Hg] Amanda Juan PA Work Phone: [facility] 03-01-2024 11:46-0500 Systolic blood pressure 130 mm[Hg] Amanda [place] PA Work Phone: [facility] 02-20-2024 10:07-0500 Body mass index (BMI) [Ratio] 37.68 kg/m2 Anai Jennyfer DO Work Phone: [facility] 02-20-2024 10:07-0500 Body weight 93.44 kg Anai Jennyfer DO Work Phone: [facility] 02-20-2024 10:07-0500 Diastolic blood pressure 80 mm[Hg] Anai Jennyfer DO Work Phone: [facility] 02-20-2024 10:07-0500 Systolic blood pressure 122 mm[Hg] Anai Jennyfer DO Work Phone: [facility] 01-17-2024 10:15-0400 Body mass index (BMI) [Ratio] 36 kg/m2 Amanda Juan PA Work Phone: [facility] 01-17-2024 10:15-0400 Body weight 89.27 kg Amanda [place] PA Work Phone: [facility] 01-17-2024 10:15-0400 Diastolic blood pressure 70 mm[Hg] Amanda [place] PA Work Phone: [facility] 01-17-2024 10:15-0400 Systolic blood pressure 122 mm[Hg] Amanda Juan PA Work Phone: [facility] 12-20-2023 09:58-0400 Body mass index (BMI) [Ratio] 34.93 kg/m2 Amanda Juan PA Work Phone: [facility] 12-20-2023 09:58-0400 Body weight 86.64 kg Amanda Vasquezey PA Work Phone: [facility] 12-20-2023 09:58-0400 Diastolic blood pressure 76 mm[Hg] Amanda Juan PA Work Phone: [facility] 12-20-2023 09:58-0400 Systolic blood pressure 124 mm[Hg] Amanda Vasquezey PA Work Phone: [facility] 11-23-2023 09:47-0400 Body height 157.5 cm Lorene Hemmer PA Work Phone: [facility] 11-23-2023 09:47-0400 Body mass index (BMI) [Ratio] 34.39 kg/m2 Lorene Hemmer PA Work Phone: [facility] 11-23-2023 09:47-0400 Body weight 85.28 kg Lorene Hemmer PA Work Phone: [facility] 11-23-2023 09:47-0400 Diastolic blood pressure 86 mm[Hg] Lorene Hemmer PA Work Phone: [facility] 11-23-2023 09:47-0400 Heart rate 81 /min Lorene Hemmer PA Work Phone: [facility] 11-23-2023 09:47-0400 Respiratory rate 16 /min Lorene Hemmer PA Work Phone: [facility] 11-23-2023 09:47-0400 SaO2% (BldA) [Mass fraction] 98 % Lorene Hemmer PA Work Phone: [facility] 11-23-2023 09:47-0400 Systolic blood pressure 124 mm[Hg] Lorene Hemmer PA Work Phone: [facility] 11-22-2023 09:29-0400 Body mass index (BMI) [Ratio] 34.41 kg/m2 Anai Burger DO Work Phone: [facility] 11-22-2023 09:29-0400 Body weight 85.33 kg Anai Jennyfer DO Work Phone: [facility] 11-22-2023 09:29-0400 Diastolic blood pressure 74 mm[Hg] Anai Jennyfer DO Work Phone: [facility] 11-22-2023 09:29-0400 Systolic blood pressure 122 mm[Hg] Anai Jennyfer DO Work Phone: [facility] Encounters Encounter Date Encounter Type Care Provider Facility Start: 05-08-2024 End: 05-08-2024 Patient encounter status Amanda ROMAN Work Phone: [facility] Work Phone: Start: 05-08-2024 End: 05-08-2024 care visit Amanda ROMAN Work Phone: [facility] Comment on above: depressio n ([facility] (Primary Dx); Blood pressure check; follow-up Start: 05-08-2024 End: 05-08-2024 ambulatory AMANDA MARTINEZ Not Available Start: 05-02-2024 End: 05-02-2024 Clinisync Result Encounter Anai Jennyfer DO Work Phone: [facility] Department Unsolicited Start: 05-02-2024 End: 05-02-2024 Clinisync Result Encounter Anai Jennyfer DO Work Phone: [facility] Unsolicited Start: 05-01-2024 End: 05-01-2024 Clinisync Result Encounter Anai Jennyfer DO Work Phone: [facility] Unsolicited Start: 05-01-2024 End: 05-01-2024 Clinisync Result Encounter Anai Jennyfer DO Work Phone: [facility] Unsolicited Start: 04-30-2024 End: [...] Start: 04-10-2024 End: 04-10-2024 Bamboo flowsheet Amanda RMOAN Work Phone: [facility] Start: 04-10-2024 [...] Result Encounter Anai Jennyfer DO Work Phone: [facility] External Department Unsolicited Start: 04-03-2024 End: 04-03-2024 flow sheet Anai Jennyfer DO Work Phone: [facility] Comment on above: Third [...] OB Start: 03-01-2024 End: 03-01-2024 Bamboo flowsheet Amanad ROMAN Work Phone: [facility] Start: 03-01-2024 End: 03-01-2024 ambulatory AMANDA MARTINEZ Not Available Start: 03-01-2024 End: 03-01-2024 flow sheet mAanda ROMAN Work Phone: [facility] Comment [...] PA Work Phone: [facility] Start: 01-17-2024 [...] End: 05-11-2022 ambulatory Dee Buchanan Facility:[facility] Start: 05-11-2022 End: 05-11-2022 ambulatory MD Dee Buchanan Work Phone: [facility] Work Phone: Start: 05-11-2022 End: 05-11-2022 Patient encounter procedure MD Dee Buchanan Work Phone: [facility] Start: 08-10-2021 End: 08-10-[address] ANAI BURGER Facility:[facility] Start: 07-17-2021 End: 07-18-[address] LORENE PLASENCIA Facility:[facility] Start: 12-08-2020 End: 12-08-[address] VERITO LAMB Facility:[facility] Start: 12-03-2020 End: 12-03-[address] VERITO LAMB Facility:[facility] Procedures Date Procedure Procedure Detail Performing Clinician Start: 05-02-2024 ALL CBC WITH AUTO DIFF Anai Jennyfer DO Work Phone: Start: 05-01-2024 [facility] CBC WITH PLATEL ET NO DIFFERENTIAL Anai Jennyfer DO Work Phone: Start: 04-30-2024 US OB BPP W NON-STRESS Generic External Data Provider Start: 04-24-2024 Urnls dip stick/tabl et rgnt non-auto w/o micrscp Anai Jennyfer DO Work Phone: Start: 04-21-2024 US OB BPP W NON-STRESS [...] Treatment Date Care Activity Detail Author Start: 06-12-2024 End: 06-12-2024 ambulatory 06/12/2024 10:30 AM EDT Visit [facility] [address] [facility] [place] [id number] Amanda Martinez PA [address] [place] [address] [facility] Start: 04-24-2024 End: 04-24-2024 Patient encounter procedure [facility] Comment on above: Arrived Start: 04-17-2024 End: 04-17-2024 Patient encounter procedure 04/17/2024 10:50 AM EST Routine [facility] [address] [place] [id number] Anai Burger DO [address] [facility] [place] [address] [facility] Start: 04-10-2024 End: 04-10-2024 [...] AM EST Routine [facility] [address] [place] [phone] Anai Burger, DO [address] [place] [address] Arrived [facility] Comment on above: Arrived Start: 03-19-2024 End: 03-19-2024 Patient encounter procedure [facility] Comment on above: Arrived Start: 03-05-2024 End: 03-05-2024 Patient encounter procedure [facility] Comment on above: Arrived Start: 03-05-2024 End: 03-05-2024 Professional / ancillary services management 03/05/2024 9:00 AM EST Ancillary Procedure [facility] [address] [facility] [place] [address] [facility] Start: 03-01-2024 End: 03-01-2025 Alanine aminotransferase [Enzymatic activity/volume] in Serum or Plasma ALT Lab Routine induced hypertension, antepartum Expected: 03/01/2024 (Approximate), Expires: 03/01/2025 [facility] Comment on above: Expected: 03/01/2024 (Approximate), Expires: 03/01/2025 Start: 03-01-2024 End: 03-01-2025 Aspartate aminotransferase [Enzymatic activity/volume] in Serum or Plasma AST Lab Routine induced hypertension, antepartum Expected: 03/01/2024 (Approximate), Expires: 03/01/2025 [facility] Comment on above: Expected: 03/01/2024 (Approximate), Expires: 03/01/2025 Start: 03-01-2024 End: 03-01-2025 CBC W Auto Differential panel - Blood CBC and differential Lab Routine induced hypertension, antepartum Expected: 03/01/2024 (Approximate), Expires: 03/01/2025 [facility] Comment on above: Expected: 03/01/2024 (Approximate), Expires: 03/01/2025 Start: 03-01-2024 End: 03-01-2025 Creatinine [Mass/volume] in Serum or Plasma Creatinine Lab Routine induced hypertension, antepartum Expected: 03/01/2024 (Approximate), Expires: 03/01/2025 [facility] Work Phone: Comment on above: Expected: 03/01/2024 (Approximate), Expires: 03/01/2025 Start: 03-01-2024 End: 03-01-2025 Lactate dehydrogenase [Enzymatic activity/volume] in Serum or Plasma by Lactate to pyruvate reaction Lactate dehydrogenase Lab Routine induced hypertension, antepartum Expected: 03/01/2024, Expires: 03/01/2025 [facility] Comment on above: Expected: 03/01/2024 , Expires: 03/01/2025 Start: 03-01-2024 End: 03-01-2025 Protein, urine, 24 hour Protein, urine, 24 hour Lab Routine induced hypertension, antepartum Expected: 03/01/2024 (Approximate), Expires: 03/01/2025 [facility] Comment on above: Expected: 03/01/2024 (Approximate), Expires: 03/01/2025 Start: 03-01-2024 End: 03-01-2025 Pt and ptt Pt and ptt Lab Routine induced hypertension, antepartum Expected: 03/01/2024, Expires: 03/01/2025 [facility] Comment on above: Expected: 03/01/2024 , Expires: 03/01/2025 Start: 03-01-2024 End: 03-01-2025 Urate [Mass/volume] in Serum or Plasma Uric acid Lab Routine induced hypertension, antepartum Expected: 03/01/2024 (Approximate), Expires: 03/01/2025 [facility] Comment on above: Expected: 03/01/2024 (Approximate), Expires: 03/01/2025 Start: 03-01-2024 End: 03-01-2025 Urea nitrogen [Mass/volume] in Serum or Plasma BUN Lab Routine induced hypertension, antepartum Expected: 03/01/2024, Expires: 03/01/2025 [facility] Comment on above: Expected: 03/01/2024 , Expires: 03/01/2025 Start: 03-01-2024 End: 03-01-2025 US biophysical profile w non stress test US biophysical profile w non stress test Imaging Routine Hypertension affecting in third trimester Lightheadedness Dizziness Expected: 03/01/2024 (Approximate), Expires: 03/01/2025 [facility] Comment on above: Expected: 03/01/2024 (Approximate), Expires: 03/01/2025 Start: 02-20-2024 End: 02-19-2025 US for US OB SCAN FOR GROWTH Imaging Routine Excessive growth affecting management of , antepartum, single or unspecified fetus Expected: 02/20/2024 (Approximate), Expires: 02/19/2025 [facility] Work Phone: Comment on above: Expected: [...] mellitus screening Expected: 01/17/2024 (Approximate), Expires: 01/16/2025 [facility] Comment on above: Expected: 01/17/2024 (Approximate), Expires: 01/16/2025 Start: 01-17-2024 End: 01-17-2024 Patient encounter procedure [facility] Comment on above: Arrived Start: 01-17-2024 End: 01-17-2024 Professional / ancillary services management 01/17/2024 9:30 AM EDT Ancillary Procedure [facility] [address] [place] [address] [facility] Start: 12-20-2023 End: 12-20-2023 Patient encounter procedure [facility] Comment on above: Arrived Start: 12-14-2023 End: 12-14-2023 Professional / ancillary services management 12/14/2023 9:00 AM EDT Ancillary Procedure [facility] [address] [place] [address] [facility] Start: 11-22-2023 End: 05-21-2024 Alpha fetoprotein, maternal Alpha fetoprotein, maternal Lab Routine Second trimester Expected: 11/22/2023 (Approximate), Expires: 05/21/2024 [facility] Comment on above: Expected: 11/22/2023 (Approximate), Expires: 05/21/2024 Start: 11-22-2023 End: 11-21-2024 US for US OB ANATOMY SINGLE W US OB CERVICAL LENGTH Imaging Routine Screening, , for anatomic survey Expected: 11/22/2023 (Approximate), Expires: 11/21/2024 [facility] Comment on above: Expected: 11/22/2023 (Approximate), Expires: 11/21/2024 Start: 11-20-2023 Influenza vaccination Influenza Vacc ine (#1) [facility] CHLAMYDIA TRACHOMATI S (GENITO/STI) CHLAMYDIA TRACHOMATIS (GENITO/STI) Lab Routine STD exposure Ordered: 11/22/2023 [facility] Comment on above: Ordered: 11/22/2023 Cytology Cervical or vaginal smear or scraping study Pap Smear Pathology and Cytology Routine Well woman exam with routine gynecological exam Ordered: 11/22/2023 [facility] Comment on above: Ordered: 11/22/2023 Neisseria gonorrhoea e DNA [Presence] in Unspecified specimen by SANTANA with probe detection Neisseria gonorrhea DNA probe, direct Lab Routine STD exposure Ordered: 11/22/2023 [facility] Comment on above: Ordered: 11/22/2023 SURESWAB(R) ADVANCED VAGINITIS PLUS, TMA SURESWAB(R) ADVANCED VAGINITIS PLUS, TMA Pathology and Cytology Routine Vaginal discharge Ordered: 11/22/2023 [facility] Work Phone: Comment on above: Ordered: 11/22/2023 Immunizations Immunization Date Immunization Notes Care Provider Fa cility 12-09-2019 diphtheria, tetanus toxoids and pertussis vaccine Lorene ROMAN Work Phone: [facility] 12-09-2019 measles, mumps and rubella virus vaccine Lorene ROMAN Work Phone: [facility] 05-30-2000 diphtheria, tetanus toxoids and acellular pertussis vaccine, unspecified formulation Lorene Hemmer PA Work Phone: [facility] Work Phone: 05-30-2000 measles, mumps and rubella virus vaccine Lorene Hemmer PA Work Phone: [facility] 05-30-2000 poliovirus vaccine, inactivated Lorene Hemmer PA Work Phone: [facility] 03-30-2000 influenza, seasonal, injectable Lorene Hemmer PA Work Phone: [facility] 03-30-2000 influenza virus vaccine, unspecified formulation Lorene Hemmer PA Work Phone: [facility] 09-12-1998 haemophilus influenz ae type b vaccine, conjugate unspecified formulation Lorene Hemmer PA Work Phone: [facility] 11-28-1996 diphtheria, tetanus toxoids and acellular pertussis vaccine, unspecified formulation Lorene Hemmer PA Work Phone: [facility] 11-28-1996 haemophilus influenz ae type b vaccine, conjugate unspecified formulation Lorene Hemmer PA Work Phone: [facility] 11-28-1996 measles, mumps and rubella virus vaccine Lorene Hemmer PA Work Phone: [facility] 10-27-1996 trivalent poliovirus vaccine, live, oral Lorene Hemmer PA Work Phone: [facility] 01-31-1996 DTP-Haemophilus influenzae type b conjugate vaccine Lornee Hemmer PA Work Phone: [facility] 01-31-1996 hepatitis B vaccine, pediatric or pediatric/adolescent dosage Lorene Hemmer PA Work Phone: [facility] 01-31-1996 trivalent poliovirus vaccine, live, oral Lorene Hemmer PA Work Phone: [facility] 1995 DTP-Haemophilus influenzae type b conjugate vaccine Lorene Hemmer PA Work Phone: [facility] 1995 trivalent poliovirus vaccine, live, oral Lorene Hemmer PA Work Phone: [facility] 1995 DTP-Haemophilus influenzae type b conjugate vaccine Lorene Welchstan ROMAN Work Phone: [facility] 1995 hepatitis B vaccine, pediatric or pediatric/adolescent dosage Lorene Welchstan ROMAN Work Phone: [facility] 1995 haemophilus influenz ae type b vaccine, conjugate unspecified formulation Lorene Welchstan ROMAN Work Phone: [facility] 1995 hepatitis B vaccine, pediatric or pediatric/adolescent dosage Lorene Welchstan ROMAN Work Phone: [facility] Payers Date Payer Category Payer [facility] Care O (unspecified) [id number] 2023 Private Health Insurance [id number] 2022 Private Health Insurance [id number] 2022 Self-pay 2022 Unknown [id number] 1995 Unknown [id number] 2.16.84 0.1.219815.3.579.2.593 1995 Unknown [id number] 2.16.84 0.1.015786.3.579.2.593 1995 Unknown [id number] 2.16.84 0.1.255657.3.579.2.593 1995 Unknown [id number] 2.16.84 0.1.129682.3.579.2.593 1995 Unknown [id number] 2.16.840.1.241196.3.579.2.1259 1995 Unknown [id number] 2.16.840.1.630838.3.579.2.1259 1995 Unknown [id number] 2.16.840.1.326086.3.579.2.1259 1995 Unknown [id number] 2.16.840.1.794736.3.579.2.1258 1995 Unknown [id number] 2.16.840.1.168548.3.579.2.1258 1995 Unknown [id number] 2.16.840.1.861684.3.579.2.1258 1995 Unknown [id number] 2.16.840.1.538080.3.579.2.1258 1995 Unknown [id number] 2.16.840.1.420341.3.579.2.1258 1995 Unknown [id number] 2.16.840.1.274483.3.579.2.1258 1995 Unknown [id number] 2.16.840.1.677344.3.579.2.1258 1995 Unknown [id number] 2.16840.1.059626.3.579.2.1258 1995 Unknown [id number] 2.16840.1.746528.3.579.2.1258 1995 Unknown [id number] 2.16840.1.553480.3.579.2.1258 1995 Unknown [id number] 2.16.840.1.560703.3.579.2.1258 1995 Unknown [id number] 2.16.840.1.492232.3.579.2.1258 1995 Unknown [id number] 2.16840.1.954503.3.579.2.1258 1995 Unknown [id number] 2.16.840.1.133034.3.579.2.1258 1995 Unknown [id number] 2.16.840.1.541326.3.579.2.1258 1995 Unknown [id number] 2.16.840.1.600864.3.579.2.9 1959 Unknown [id number] 1959 Unknown [id number] 1959 Unknown [id number] Unknown [id number] 2.16.840.1.534302.3.579.2.531 Social History Date Type Detail Facility Tobacco smoking stat us NHIS Unknown if ever smoked [facility] Work Phone: Start: 1995 Sex Assigned At Female [facility] Start: 09-08-2023 End: 11-23-2023 Sex Assigned At [facility] Start: 11-24-2022 Tobacco smoking status NHIS Never smoked tobacco [facility] Start: 11-24-2022 Tobacco use and exposure Smokeless tobacco non-user [facility] Start: 11-23-2023 End: 05-08-2024 Alcoholic beverage intake Ex-drinker (finding) [facility] Start: 09-08-2023 End: 11-23-2023 Alcoholic beverage intake [facility] How often do you nee d to have someone help you when you read instructions, pamphlets, or other written material from your doctor or pharmacy [SILS] Never [facility] Do you belong to any clubs or organizations such as hinduism groups, unions, fraternal or athletic groups, or [...] beverage intake Current drinker of alcohol (finding) [facility] Clinical Notes 05-11-2022 to 05-08-2024 Amanda Martinez, ABEL - 05/08/2024 9:30 AM Graeme Duran LPN - 04/24/2024 10:20 AM ABEL Stinson - 04/17/2024 10:50 AM ABEL Stinson - 04/10/2024 10:20 AM Graeme Duran, YOANNA - 04/03/2024 10:30 AM EST Note Date & Type Note Facility 05-08-2024 History of Presen t illness Narrative Reason for Appointment: Patient ID: Nazia Ruiz is a 28 y.o. female who presents for Follow-up Patient presents today for Post Follow Up appointment. MEDICATIONS Current Outpatient Medications Medication Instructions cetirizine (ZYRTEC) 10 mg, Daily fluticasone (Flonase) 50 MCG/ACT nasal spray 1 spray, Daily labetalol (NORMODYNE) 100 mg, Oral, 2 times daily venlafaxine XR (EFFEXOR XR) 37.5 mg, Oral, [...] SYSTEMS Review of Systems: Review of Systems OBJECTIVE Objective: Physical Exam Constitutional: Appearance: Normal [...] reviewed. Vitals: Estimated body mass index is 36.43 kg/m as calculated from the following: Height as of 24: 5' 2 . Weight as of this encounter: 199 lb 3.2 oz. BP: 128/82 No LMP recorded. ASSESSMENT & PLAN ICD-10-CM 1. Blood pressure check Z01.30 2. follow-up Z39.2 Post Follow Up: Patient is doing well but has complaints of post depression. Patient presents today for1 week visit. Patient is s/p Vaginal delivery. Patient states depression but denies suicidal and homicidal ideations. Patient states despite taking effexor she is still depressed and very anxious. We discussed starting zurzuvzea. Patient agrees. Patient taking 100mg labetolol bid, she will decrease to 100mg daily and call us next week after her appointment to see how BP doing. If normal we will stop at that time. She is 120/82 today but states elevated yesterday after climbing stairs. Follow Up: Patient is to return for annual unless needed otherwise. Documented by ABEL Carroll on behalf of: ABEL Carroll documented in this encounter [facility] 04-24-2024 History of Presen t illness Narrative [...] 2 (SARS-CoV-2) detected 08/18/2022 Generalized anxiety disorder ([facility]/HCC) 03/23/2023 Resolved Ambulatory Problems Diagnosis Date Noted Allergic rhinitis 08/18/2022 Sinusitis 08/18/2022 Past Medical History: Diagnosis Date Allergies Central auditory processing disorder Chronic ear infection Depression (CMS/HCC) ETD (eustachian tube dysfunction) Miscarriage TMJ (dislocation of temporomandibular joint) HISTORY PAST MEDICAL HISTORY SOCIAL HISTORY Past Medical History: Diagnosis Date Allergies Central auditory processing disorder Chronic ear infection Depression ([facility]) ETD (eustachian tube dysfunction) Ganglion cyst [...] nursing note reviewed. Exam conducted with a marine designer present. Vitals: Estimated body mass index is [...] Anai Burger DO documented in this encounter [facility] 04-17-2024 History of Presen t illness [...] Anai Burger DO documented in this encounter [facility] 04-10-2024 History of Presen t illness [...] of: ABEL Carroll documented in this encounter [facility] 04-03-2024 History of Presen t illness [...] nursing note reviewed. Exam conducted with a marine designer present. Vitals: Estimated body mass index is [...] Anai Burger DO documented in this encounter [facility] 03-19-2024 History of Presen t illness [...] of: ABEL Carroll documented in this encounter [facility] 03-05-2024 History of Presen t illness [...] 2 (SARS-CoV-2) detected 08/18/2022 Generalized anxiety disorder ([facility]/HCC) 03/23/2023 Resolved Ambulatory Problems Diagnosis Date Noted Allergic rhinitis 08/18/2022 Sinusitis 08/18/2022 Past Medical History: Diagnosis Date Allergies Central auditory processing disorder Chronic ear infection Depression (CMS/HCC) ETD (eustachian tube dysfunction) Miscarriage TMJ (dislocation of temporomandibular joint) HISTORY PAST MEDICAL HISTORY SOCIAL HISTORY Past Medical History: Diagnosis Date Allergies Central auditory processing disorder Chronic ear infection Depression ([facility]) ETD (eustachian tube dysfunction) Ganglion cyst [...] of: ABEL Carroll documented in this encounter [facility] 03-01-2024 History of Presen t illness [...] of: ABEL Carroll documented in this encounter [facility] 02-20-2024 History of Presen t illness [...] nursing note reviewed. Exam conducted with a marine designer present. Vitals: Estimated body mass index is [...] Anai Burger DO documented in this encounter [facility] 01-17-2024 History of Presen t illness [...] nursing note reviewed. Exam conducted with a marine designer present. Vitals: Estimated body mass index is [...] of: ABEL Carroll documented in this encounter [facility] 12-20-2023 History of Presen t illness [...] of: ABEL Carroll documented in this encounter [facility] 11-25-2023 Telephone encount er Note Understood. [facility] 11-25-2023 Miscellaneous Notes Formattin g of this note might be different from the original. Understood. Nazia called stating her ob just wants her on Effexor instead of buspirone so that's what she'll be on documented in this encounter [facility] 11-25-2023 Telephone encount er Note Nazia called stating her ob just wants her on Effexor instead of buspirone so that's what she'll be on [facility] 11-23-2023 History of Presen t illness [...] Medication Follow Up. documented in this encounter [facility] 11-22-2023 History of Presen t illness [...] nursing note reviewed. Exam conducted with a marine designer present. Vitals: Estimated body mass index is [...] Anai Burger DO documented in this encounter [facility] 05-11-2022 Evaluation note Encounter Date Diagnosis [...] Instructed patient to wear brace for activities. [employer] Other Evaluation noteNo assessment information available [facility] Work Phone: Evaluation note* [...] hypertension, antepartum [facility] Diagnosis depression (CMS/HCC)- Primary Mental disorders of mother, complicating , childbirth, or the puerperium, unspecified as to episode of care Blood pressure check Screening for hypertension follow-up Routine follow-up documented in this encounter [facility] Narrative - Reported* Type Description Date Medical History learning disability Surgical History tymponostomy x7 [employer] Other Summary Purpose Family History No Family History Records FoundNo Family History Records FoundNo Family History Records Found Advance Directives No Advanced Directives Records FoundNo Advanced Directives Records FoundNo Advanced Directives Records Found Additional Source Comments INFORMATION SOURCE (unrecogn ized section and content) DATE CREATED AUTHOR 09/12/2021 [facility] DATE CREATED AUTHOR AUTHOR'S ORGANIZ ATION 05/21/2022 [facility] DATE CREATED AUTHOR AUTHOR'S ORGANIZ ATION 05/09/2024 [facility] Care Teams (unrecognized sec tion and content) Team Status: Inactive Member Role Status Dates Dee Buchanan MD Attending Provider Active Garage Worker Relationship Specialty Start Date End Date Verito Lamb MD [address] [facility] [address] [place] [address] PCP - General Family Medicine 10/18/22 Garage Worker Relationship Specialty Start Date End Date Verito Lamb MD [address] [facility] [address] [place] [address] PCP - General Family Medicine 10/18/22 Garage Worker Relationship Specialty Start Date End Date Verito Lamb MD [address] [facility] [address] [place] [address] PCP - General Family Medicine 10/18/22 Garage Worker Relationship Specialty Start Date End Date Verito Lamb MD [address] [facility] [address] [place] [address] PCP - General Family Medicine 10/18/22 Garage Worker Relationship Specialty Start Date End Date Verito Lamb MD [address] [facility] [address] [place] [address] PCP - General Family Medicine 10/18/22 Garage Worker Relationship Specialty Start Date End Date Verito Lamb MD [address] [facility] [address] [place] [address] PCP - General Family Medicine 10/18/22 Garage Worker Relationship Specialty Start Date End Date Verito Lamb MD [address] [facility] [address] [place] [address] PCP - General Family Medicine 10/18/22 Garage Worker Relationship Specialty Start Date End Date Verito Lamb MD [address] [facility] [address] [place] [address] PCP - General Family Medicine 10/18/22 Garage Worker Relationship Specialty Start Date End Date Verito Lamb MD [address] [facility] [address] [place] [address] PCP - General Family Medicine 10/18/22 Garage Worker Relationship Specialty Start Date End Date Verito Lamb MD [address] [facility] [address] [place] [address] PCP - General Family Medicine 10/18/22 Garage Worker Relationship Specialty Start Date End Date Verito Lamb MD [address] [facility] [address] [place] [address] PCP - General Family Medicine 10/18/22 Garage Worker Relationship Specialty Start Date End Date Verito Lamb MD [address] [facility] [address] [place] [address] PCP - General Family Medicine 10/18/22 Garage Worker Relationship Specialty Start Date End Date Verito Lamb MD [address] [facility] [address] [place] [address] PCP - General Family Medicine 10/18/22 Garage Worker Relationship Specialty Start Date End Date Verito Lamb MD [address] [facility] [address] [place] [address] PCP - General Family Medicine 10/18/22 Garage Worker Relationship Specialty Start Date End Date Verito Lamb MD [address] [facility] [address] [place] [address] PCP - General Family Medicine 10/18/22 Goals (unrecognized section and content) Goals may be documented in a n alternate sectionNo Information REASON FOR VISIT (unrecogniz ed section and content) Reason Comments Routine Visit Reason Comments Well Women Visit Routine Visit STI Screening Reason Comments Follow-up FOR RECORDS PERTAINING TO PATIENTS WHO ARE [...] BE BASED ON THE PRIMARY CLINICAL RECORDS. [employer] provides no warranty or guarantee of the accuracy or completeness of information in this document.
--- NOTE | 2024-05-17 19:44 | PC.NURSE ---
Nazia arrives for follow up today with baby Oliver, states baby is about 2 weeks old now. Nazia states baby is taking 3oz of expressed breast milk from a bottle about every 2-3 hours, tolerating feeds well. Nazia says her goal is to have baby back to breast. She is pumping every 4-6 hours, expressing 12-15oz of milk per pumping session. Encouragement and reassurance given, discussed backing pumping sessions to every 4 hours, with putting baby to breast in between pumping sessions. Baby weighed, 4kg today (8#13) which patient states is 15oz up from last week in office. Discussed feeding routine, baby takes expressed breast milk by bottle during the day, formula bottles at night Offered to assist with latching, Nazia states baby came to breast yesterday and was cranky and screamed for a while before latching, but then did fine. Nazia latches baby to right breast in football position, few attempts to get deep asymmetrical latch. Education provided while RN at patient's side during nursing session. Discussed slowly swapping out bottle feeds for breast feeds, how to tell when baby is full, discussed signs of efficient feeds when not measuring out volume. Patient verbalizes understanding. Baby nurses well for 15 minutes, large void diaper and small mustard yellow stool changed by mom. BP assessed as requested, states she is coming off Labetalol and is currently on 50mg daily. BP 118/68, no headache or blurry/spotty vision. No other concerns at this time, Nazia discharged home, desires to schedule additional follow up with Ewelina as needed, will call to schedule.
== END 2024-05-17 11:15 | disposition home or self-care (01) ==
PROVIDERS: PCP Family Medicine; Visit Provider Obstetrics & Gynecology
DX: Z39.1 Encounter for care and examination of lactating mother (principal)